=== PATIENT | male | born 1960 | race Caucasian/White ===

== ENCOUNTER 2017-08-14 06:06 | Day surgery (SDC) | payer BC, MEDICARE ==
[~2017-08-14 06:06] MED LIST: ALBU2.5V14 NEB; ASPI325T8 PO; BREO ELLIPTA 11 EACH IH; BUME1TAB PO; CHOL10002 PO; CLON1TAB3 PO; FURO-69 PO; HYDR50TA6 PO; IPRA0.2S5 IH; LISI-338 PO; LISI10TA2 PO; METO25TA4 PO; MONT10TA9 PO; OMEP20CA9 PO; PANT40TA5 PO; PROAIR HFA8.5 GM INH; ROFL500T7 PO; TAMS0.4C2 PO; THEO400T2 PO; TOPI50TA8 PO
[2017-08-14] MEDS ORDERED: CEPH500T PO (06:53)
[2017-08-14] MEDS ORDERED: LIDOCAINE 2% PF Vial for OR 5 ML VIAL. ONE (06:57)
[2017-08-14] MEDS ORDERED: PROPOFOL 20 ML IV ONE ×2 (06:57→07:57)
[2017-08-14] MEDS ORDERED: fentaNYL PF VIAL 100 MCG/2 ML VIAL ONE ×2 (06:57→08:42)
[2017-08-14] MEDS ORDERED: MORPHINE SULFATE 2 MG/ML DISP.SYRIN. IV PRN (07:00)
[2017-08-14] MEDS ORDERED: HYDROmorphone 2 MG/ML VIAL IV PRN (07:00)
[2017-08-14] MEDS ORDERED: LIDOCAINE 1% PF 2 ML VIAL. ID PRN (07:00)
[2017-08-14] MEDS ORDERED: ONDANSETRON PF 4 MG/2 ML VIAL. IV PRN (07:00)
[2017-08-14] MEDS ORDERED: fentaNYL PF VIAL 100 MCG/2 ML VIAL IV PRN (07:00)
[2017-08-14] MEDS ORDERED: IV RINGERS,LACTATED 1000ML 1,000 ML IV SCH (07:00)
[2017-08-14] MEDS ORDERED: PROCHLORPERAZINE 10 MG/2 ML VIAL. IV PRN (07:00)
[2017-08-14] MEDS ORDERED: IPRATRPIUM/ALBUTEROL 0.5/2.5MG 3 ML NEBU. ONE (07:13)
[2017-08-14] MEDS ORDERED: IPRATRPIUM/ALBUTEROL 0.5/2.5MG 3 ML NEBU. NEB ONE (07:15)
[2017-08-14] MEDS ORDERED: ONDANSETRON PF 4 MG/2 ML VIAL. ONE (07:45)
[2017-08-14] MEDS ORDERED: SEVOFLURANE 16 TO 30 MINUTES. IH ONE (07:45)
[2017-08-14] MEDS ORDERED: DEXAMETHASONE SOD PHOS 20 MG/5 ML VIAL. ONE (07:45)
--- NOTE | 2017-08-14 08:30 | DISCH ---
DISCHARGE INSTRUCTIONS Condition on Discharge Condition on Discharge: Stable Activity After Discharge Activity Instructions for Disc: Other, see below Other activity instructions: gentle motion right elbow, no lifting pushing pulling Bathing Instructions: Shower-keep dressing dry Diet after Discharge Diet after Discharge: Regular Wound Incision Care Wound/Incision Care: Ice to area for comfort, Change dressing Other wound/incision instructi: May remove dressing in 3 days and replace with gauze and compressive wrap Contacting the DR. after DC Call your doctor for: Concerns you may have Follow-Up Follow up with: Kirit 10 days KIKE BARNHART MD Aug 14, 2017 08:30
[2017-08-14] MEDS ORDERED: HYDR-965 PO (08:34)
[2017-08-14] MEDS: fentaNYL PF VIAL 100 MCG/2 ML VIAL IV PRN ×2 (08:44→08:57)
[2017-08-14] MEDS ORDERED: HYDROcodone/APAP 7.5/325MG 1 TAB TABLET PO ONE (09:00)
--- NOTE | 2017-08-14 09:12 | PDOC4 ---
Operative Note Operative Note The surgery: 08/14/2017 Preoperative diagnosis: Infected right olecranon bursa Postoperative diagnosis: Same Procedure: Irrigation debridement of infected right olecranon bursa Surgeon: Kirit Anesthesia: Gen. endotracheal Estimated blood loss 50 mL Intraoperative cultures sent Complications: None Operative indications: Patient is a 57-year-old male with a several week history of swollen red painful right elbow. It was aspirated his primary care physician but recurred he has been on multiple courses of antibiotics with no resolution and continues to be red and painful. No culture results are reported available. I had gone over with him the possibility of operative debridement and cultures at that time although cultures may be inaccurate due to his previous course of antibiotics. Nevertheless he is very symptomatic and not getting better with his previous treatment. Consent was obtained and he agrees to proceed with operative evaluation and treatment and is aware of the risks of ongoing infection potential additional procedures risks of surgery including medical or other anesthetic complications. Operative text: Patient was identified procedure verified patient placed in the supine position on the operating table. After adequate amounts of general endotracheal anesthesia were administered the right upper extremity was prepped and draped in standard sterile fashion was then tourniquet on the upper arm. After timeout was performed patient procedure identified and verified, incisions were made longitudinally just proximal and distal to the olecranon bursa area for access without compromising the skin directly over the olecranon. Anaerobic and aerobic cultures were obtained extensive sharp debridement was carried out with rongeurs and curettes removing the olecranon tissue and causing significant bleeding in the olecranon area. Thorough irrigation carried out with normal saline solution and pulse lavage additional sharp debridement was carried out with the rongeurs and with the offending tissue removed additional thorough irrigation carried out and closure accomplished with nylon suture in a vertical mattress fashion sterile compressive dressings were placed followed by an Ector wrap from the hand on up above the elbow to the upper arm fingers were noted be warm and pink throughout the procedure no tourniquet was used he was returned recovery room in stable condition having tolerated the procedure well KIKE BARNHART MD Aug 14, 2017 09:12
[2017-08-14 09:30] VITALS: BP 108/97
== END 2017-08-14 09:59 | disposition home or self-care (01) ==
LOC: SURG 06:06
PROVIDERS: ATTEND Orthopaedic Surgery
DX: M71.121 Other infective bursitis, right elbow (principal); I10 Essential (primary) hypertension; J44.9 Chronic obstructive pulmonary disease, unspecified; K21.9 Gastro-esophageal reflux disease without esophagitis; M19.91 Primary osteoarthritis, unspecified site; F41.9 Anxiety disorder, unspecified; F32.9 Major depressive disorder, single episode, unspecified; Z86.69 Personal history of other diseases of the nervous system and sense organs; Z87.39 Personal history of other diseases of the musculoskeletal system and connective tissue; Z72.89 Other problems related to lifestyle; Z82.49 Family history of ischemic heart disease and other diseases of the circulatory system; Z83.3 Family history of diabetes mellitus
CPT/HCPCS: 24105; 87071; 87075; 87205; 94640; J1100; J2405; J2704; J3010; J7620; J2001

== ENCOUNTER 2017-10-16 13:05 | Emergency (ER) | payer MEDICARE ==
[~2017-10-16] VITALS: Ht 182.9 cm; Wt 130.6 kg
[~2017-10-16 13:05] MED LIST changes: +CEPH500T PO; +HYDR-965 PO
[2017-10-16 14:20] LABS: BASO % 1 % (0-3); EOS % 3 % (0-3); HEMATOCRIT 46.1 % (39.0-53.0); HEMOGLOBIN 15.5 g/dL (13.0-17.5); LYMPH # 0.9 x10^3/uL (1.0-4.8); LYMPH % 11 % (24-48); MEAN CORPUSCULAR HEMOGLOBIN 33 pg (25-35); MEAN CORPUSCULAR HGB CONC 34 g/dL (31-37); MEAN CORPUSCULAR VOLUME 98 fL (79-100); MONO % 14 % (0-9); NEUT % 72 % (31-73); PLATELET COUNT 304 x10^3/uL (140-400); RED BLOOD COUNT 4.72 x10^6/uL (4.30-5.70); RED CELL DISTRIBUTION WIDTH 14.2 % (11.5-14.5)
[2017-10-16 14:30] LABS: INR 1.1 (0.8-1.1); PROTHROMBIN TIME PATIENT 13.2 SEC (11.7-14.0)
--- NOTE | 2017-10-16 14:41 | EKG ---
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
[2017-10-16 14:43] LABS: CALCIUM 9.2 mg/dL (8.5-10.1); CREATININE 0.8 mg/dL (0.7-1.3); GFR 98.9; POTASSIUM 3.8 mmol/L (3.5-5.1)
--- NOTE | 2017-10-16 14:44 | RAD ---
EXAM: Chest one view. HISTORY: Edema. COMPARISON: 07/09/2016. FINDINGS: A frontal view of the chest is obtained. Hyperinflation is consistent with chronic obstructive pulmonary disease. There is mild scarring or atelectasis in the bases. There are no confluent infiltrates. There is no pneumothorax or pleural effusion. The heart is not enlarged. IMPRESSION: 1. Chronic obstructive pulmonary disease. No confluent infiltrates.
[2017-10-16 14:47] LABS: ALBUMIN 4.1 g/dL (3.4-5.0); ALBUMIN/GLOBULIN RATIO 1.3 (1.0-1.7); TOTAL BILIRUBIN 1.3 mg/dL (0.2-1.0); TOTAL PROTEIN 7.2 g/dL (6.4-8.2)
--- NOTE | 2017-10-16 15:21 | RAD ---
Left lower extremity deep venous ultrasound. 10/16/2017 Indication: [Left lower extremity edema Comparison study: [None] Discussion: Sonographic evaluation of the deep veins of the left lower extremity was performed. This includes grayscale imaging and color duplex imaging with spectral analysis. No evidence of deep venous thrombosis is seen. Interrogated veins are compressible and demonstrate augmentable blood flow and color Doppler imaging. Impression: No evidence of deep venous thrombosis involving the left lower extremity.
--- NOTE | 2017-10-16 15:25 | RAD ---
Left lower extremity arterial duplex ultrasound 10/16/2017 Indication: Swelling, diminished pulses Comparison study: None Discussion: Ultrasound evaluation of left lower extremity arteries was performed. Static images are submitted to PACS. Evaluation includes color Doppler imaging spectral analysis. Findings: Normal triphasic waveforms are seen throughout the major arteries of the left lower extremity. No focal area of increased velocity suggestive of hemodynamically significant stenosis is seen. No high-grade visual narrowing is identified and color Doppler imaging. Impression: Normal sonographic appearance of major arteries of the left lower extremity
[2017-10-16 15:26] LABS: BILIRUBIN,URINE NEGATIVE (NEG); GLUCOSE,URINE NEGATIVE (NEG); NITRITE,URINE NEGATIVE (NEG); PROTEIN,URINE NEGATIVE (NEG-TRACE)
[2017-10-16 15:47] LABS: BACTERIA,URINE 0 /HPF (0-FEW); RBC,URINE 0 /HPF (0-2); WBC,URINE OCC /HPF (0-4)
[2017-10-16] MEDS ORDERED: FUROSEMIDE 40 MG/4 ML VIAL. IVP ONE (16:00)
[2017-10-16] MEDS ORDERED: CEPHALEXIN 250 MG CAPSULE. PO STA (16:06)
[2017-10-16] MEDS ORDERED: ceFAZolin 1GM IVPB FOR OMNI 1 GM/50 ML BAG IV ONE (16:15)
[2017-10-16] MEDS ORDERED: CEPH-264 PO (16:20)
--- NOTE | 2017-10-16 16:20 | PHYS DOC ---
Past Medical History Past Medical History: Asthma, CHF, COPD Additional Past Medical Histor: emphysema, lower ext edema,CPAP at night, oxygen at night Past Surgical History: Cancer Surgery Additional Past Surgical Histo: R elbow (bursitis), hernia, colectomy, mouth Cancer- laser surgery Alcohol Use: Heavy Additional Information: 12 pk day Drug Use: None Adult General Chief Complaint Chief Complaint: LOWER EXTREMITY EDEMA HPI HPI Patient is a 57 year old gentleman with history significant for CHF, COPD, chronic lower extremity edema, presents here today secondary to increased lower extremity edema redness and swelling to both lower extremities left greater than right. Patient went to the urgent care center for evaluation secondary to his lower extremity edema and asymmetry patient was transferred here for further evaluation for possible peripheral vascular/peripheral arterial disease. Patient denies any other symptomology at this time. Patient denies any fevers shakes chills nausea vomiting diarrhea chest pain shortness of breath headache visual changes. Patient reports that his legs have been swollen left greater than right with some warmth and tenderness to his left pretibial region. Patient has no known drug allergies. Patient has a history of COPD hypertension CHF. Patient reports she no longer smokes drinks or does any drugs. \ Patient reports that he is on a diuretic and he has been compliant with his diuretic. Patient reports a diuretic generally helps his lower extremity edema but he thinks over the last several days he has not been urinating as much as been retaining more fluid. Patient reports in the past that he's had increased lower extremity edema he's had to stop his salt intake with improvement in his edema. Patient reports he is done without any still having swelling to his lower extremities. Patient denies any chest pain orthopnea PND dyspnea on exertion. Patient denies any intent. Review of systems: Constitutional: Denies fever or chills Eyes: Denies change in visual acuity, redness, or eye pain HENT: Denies nasal congestion or sore throat Respiratory: Denies cough or shortness of breath All other systems were reviewed and found to be within normal limits, except as documented in this note. Physical exam: Constitutional: Well developed, well nourished, no acute distress, non-toxic appearance. HENT: Normocephalic, atraumatic, bilateral external ears normal, nose normal. Eyes: PERRLA, EOMI, conjunctiva normal, no discharge. Neck: Normal range of motion, no tenderness, supple, no stridor. Cardiovascular: Heart rate regular rhythm, Lungs & Thorax: Bilateral breath sounds clear to auscultation Abdomen: No abdominal distention. Skin: Warm, dry, no erythema, no rash. Back: Normal spinal curvature Extremities: Patient with bilateral lower extremity edema left greater than right. Pulses were difficult to assess secondary to the edema. Patient has good capillary refill. Patient's warm to touch lower extremities. Patient's pretibial area is tender to palpation with positive swelling. Patient has no calf tenderness or Homans sign. Neurologic: Alert and oriented X 3, normal motor function, normal sensory function, no focal deficits noted. Psychologic: Affect normal, judgement normal, mood normal. Ultrasound of left lower extremities reveals no evidence of DVT. Ultrasound of left lower extremity reveals normal arterial blood flow to the left lower extremity. Assessment and plan: 1. Bilateral lower extremity edema with left greater than right. No evidence of DVT. Left lower extremity reveals no evidence of arterial insufficiency. Patient did have significant tenderness to palpation his pretibial region that may or may not be consistent with an early cellulitis. I discussed this with the patient reports that he's had chronic cellulitis in the past that area and he would feel more comfortable being started on antibiotics. Patient reports that he's been on Keflex in the past with significant improvement. Given the lack of close follow-up over the weekend I feel that it be prudent to initiate antibiotic therapy on this patient given his history. Patient appears to condition well and utilizing shared decision making we have opted to initiate Keflex 10 days until he is able to follow-up with his primary care physician for definitive management. Patient's lower extremity edema is most likely consistent with peripheral edema secondary to CHF. I have given the patient extra dose of Lasix 80 IV in the ED and have encouraged him to restrict his salt and fluid intake until he is able see his primary care physician. Patient' s BNP is approximately 500 which is slightly higher than his baseline. Patient is clinically hemodynamically stable at this time for discharged home. There is no further indication for inpatient or further ER evaluation. Family appears very comfortable with plan as outlined. Current Medications Current Medications Current Medications Medications (Trade) Dose Ordered Sig/Sheryl Start Time Stop Time Status Last Admin Dose Admin Cephalexin HCl (Keflex) 500 mg 1X STAT 10/16/17 16:06 10/16/17 16:08 DC Furosemide (Lasix) 80 mg 1X ONCE 10/16/17 16:00 10/16/17 16:01 DC Allergies Allergies Allergies Coded Allergies Type Severity Reaction Last Updated Verified No Known Drug Allergies 08/14/17 No Current Patient Data Vital Signs Vital Signs Date Time Temp Pulse Resp B/P (MAP) Pulse Ox O2 Delivery O2 Flow Rate FiO2 10/16/17 13:33 97.9 98 18 155/96 (115) 94 Room Air 97.9 Lab Values Laboratory Tests Test 10/16/17 13:59 10/16/17 14:40 10/16/17 15:15 White Blood Count 8.0 x10^3/uL (4.0-11.0) Red Blood Count 4.72 x10^6/uL (4.30-5.70) Hemoglobin 15.5 g/dL (13.0-17.5) Hematocrit 46.1 % (39.0-53.0) Mean Corpuscular Volume 98 fL (79-100) Mean Corpuscular Hemoglobin 33 pg (25-35) Mean Corpuscular Hemoglobin Concent 34 g/dL (31-37) Red Cell Distribution Width 14.2 % (11.5-14.5) Platelet Count 304 x10^3/uL (140-400) Neutrophils (%) (Auto) 72 % (31-73) Lymphocytes (%) (Auto) 11 % (24-48) L Monocytes (%) (Auto) 14 % (0-9) H Eosinophils (%) (Auto) 3 % (0-3) Basophils (%) (Auto) 1 % (0-3) Neutrophils # (Auto) 5.7 x10^3uL (1.8-7.7) Lymphocytes # (Auto) 0.9 x10^3/uL (1.0-4.8) L Monocytes # (Auto) 1.1 x10^3/uL (0.0-1.1) Eosinophils # (Auto) 0.2 x10^3/uL (0.0-0.7) Basophils # (Auto) 0.0 x10^3/uL (0.0-0.2) Prothrombin Time 13.2 SEC (11.7-14.0) Prothrombin Time INR 1.1 (0.8-1.1) Sodium Level 135 mmol/L (136-145) L Potassium Level 3.8 mmol/L (3.5-5.1) Chloride Level 97 mmol/L (98-107) L Carbon Dioxide Level 30 mmol/L (21-32) Anion Gap 8 (6-14) Blood Urea Nitrogen 13 mg/dL (8-26) Creatinine 0.8 mg/dL (0.7-1.3) Estimated GFR (Cockcroft-Gault) 98.9 BUN/Creatinine Ratio 16 (6-20) Glucose Level 87 mg/dL (70-99) Calcium Level 9.2 mg/dL (8.5-10.1) Total Bilirubin 1.3 mg/dL (0.2-1.0) H Aspartate Amino Transferase (AST) 24 U/L (15-37) Alanine Aminotransferase (ALT) 33 U/L (16-63) Alkaline Phosphatase 60 U/L (46-116) Troponin I Quantitative < 0.017 ng/mL (0.000-0.055) SN-Hqc-I-Type Natriuretic Peptide 554 pg/mL (0-124) H Total Protein 7.2 g/dL (6.4-8.2) Albumin 4.1 g/dL (3.4-5.0) Albumin/Globulin Ratio 1.3 (1.0-1.7) Lactic Acid Level 0.4 mmol/L (0.4-2.0) Urine Color Yellow Urine Clarity Clear Urine pH 7.0 Urine Specific [place] 1.010 Urine Protein Negative mg/dL (NEG-TRACE) Urine Glucose (UA) Negative mg/dL (NEG) Urine Ketones (Stick) Trace mg/dL (NEG) Urine Blood Negative (NEG) Urine Nitrite Negative (NEG) Urine Bilirubin Negative (NEG) Urine Urobilinogen Dipstick 1.0 mg/dL (0.2 mg/dL) Urine Leukocyte Esterase Negative (NEG) Urine RBC 0 /HPF (0-2) Urine WBC Occ /HPF (0-4) Urine Squamous Epithelial Cells None /LPF Urine Bacteria 0 /HPF (0-FEW) Laboratory Tests 10/16/17 13:59 Laboratory Tests 10/16/17 13:59 EKG EKG [] Radiology/Procedures Radiology/Procedures [] Course & Med Decision Making Course & Med Decision Making Pertinent Labs and Imaging studies reviewed. (See chart for details) [] Dragon Disclaimer Dragon Disclaimer This electronic medical record was generated, in whole or in part, using a voice recognition dictation system. Departure Departure Impression: Primary Impression: Bilateral lower extremity edema Additional Impressions: CHF (congestive heart failure) Cellulitis Disposition: HOME, SELF-CARE Condition: IMPROVED Referrals: Roseann JAY MD (PCP) Patient Instructions: Cellulitis, Heart Failure, Peripheral Edema Additional Instructions: Please call Dr. Pichardo on Thursday for follow-up appointment and reevaluation for your lower show edema, cellulitis, management of your diuretics. Scripts Cephalexin (KEFLEX) 500 Mg Capsule 500 MG PO QID for 10 Days, CAP Prov: BRENDON CASE MD 10/16/17 Problem Qualifiers BRENDON CASE MD Oct 16, 2017 16:20
[2017-10-16 17:00] VITALS: BP 140/94
== END 2017-10-16 17:07 | disposition home or self-care (01) ==
LOC: ER 13:05
DX: L03.116 Cellulitis of left lower limb (principal); L03.115 Cellulitis of right lower limb; R60.0 Localized edema; I11.0 Hypertensive heart disease with heart failure; I50.9 Heart failure, unspecified; J44.9 Chronic obstructive pulmonary disease, unspecified; F17.200 Nicotine dependence, unspecified, uncomplicated; F10.20 Alcohol dependence, uncomplicated
CPT/HCPCS: 36415; 71010; 80053; 81001; 83605; 83880; 84484; 85025; 85610; 93005; 93923; 93971; 96365; 96375; 99285; J0690; J1940

== ENCOUNTER → 2018-04-01 | Outpatient (CLI) | payer MEDICARE | END | disposition home or self-care (01) | LOC: RAD 11:33 | DX: J44.9 Chronic obstructive pulmonary disease, unspecified (principal); I11.0 Hypertensive heart disease with heart failure; I50.9 Heart failure, unspecified; K21.9 Gastro-esophageal reflux disease without esophagitis; Z85.038 Personal history of other malignant neoplasm of large intestine | CPT/HCPCS: 71046 ==

== ENCOUNTER → 2018-10-22 | Outpatient (CLI) | payer MEDICARE ==
[~2018-10-22] MED LIST changes: +CEPH-264 PO; +CLON1TAB11 PO; -CLON1TAB3 PO; +HYDR-3165 PO; -HYDR-965 PO
--- NOTE | 2018-10-22 11:02 | KCIC ---
EXAM: Lumbar spine MRI without contrast. HISTORY: Compression fracture. TECHNIQUE: Multiplanar, multisequence magnetic resonance imaging of the lumbar spine was performed without contrast. COMPARISON: Radiographs dated 09/03/2018. FINDINGS: There is a moderate acute compression fracture of T12 with approximately one third decreased in anterior vertebral body height. There is edema within the T11 spinous process which may be due to a stress reaction or contusion. No additional vertebral body fracture is seen. There is mild lumbar levoscoliosis. There is mild retrolisthesis of L4 on L5. There is degenerative endplate remodeling and osteophytosis at all levels, with relative sparing of L5-S1. There are multiple endplate Schmorl's nodes. No suspicious osseous lesion is seen. The conus terminates at T12-L1. There is epidural lipomatosis, primarily at L3-L4. At T12-L1, there is a posterior central disc protrusion. 2 mm retropulsion of the posterior inferior cortex of T12. There is minimal central canal stenosis. At L1-L2, there is a disc bulge and endplate remodeling. There is minimal facet arthropathy. There is no stenosis. At L2-L3, there is a disc bulge and endplate remodeling. There is minimal facet arthropathy. There is epidural lipomatosis. There is mild central canal stenosis. At L3-L4, there is a right foraminal to extra foraminal disc protrusion and osteophyte complex imposed on a disc bulge and endplate osteophytosis. There is moderate bilateral facet arthropathy. There is epidural lipomatosis. There is [id number] right and mild left foraminal stenosis with abutment of the exiting right L3 nerve root. There is moderate central canal stenosis. At L4-L5, there is a left foraminal to extra foraminal disc protrusion with slight superior extrusion and osteophyte complex superimposed on a left lateral predominant disc bulge and endplate osteophytosis. There is mild bilateral facet arthropathy. There is moderate left foraminal stenosis with abutment of the exiting left L4 nerve root. At L5-S1, there is no stenosis. The left L5 transverse process is partially sacralized and articulates with the underlying sacrum, a normal variant. IMPRESSION: 1. Moderate acute compression fracture of T12. There is minimal retropulsion of the cortex at this level. 2. Multilevel degenerative change throughout the lumbar spine, described in detail above. This contributes to minimal central canal stenosis at T12-L1, mild central canal stenosis at L2-L3, mild to moderate right and mild left foraminal stenosis with abutment of the exiting right L3 nerve root and moderate central canal stenosis at L3-L4, and moderate left foraminal stenosis with abutment of the exiting left L4 nerve root at L4-L5. 3. Lumbar scoliosis. 4. Electronically signed by: Soraya Grubbs MD (10/22/2018 10:58 AM) [email or web address]
== END | disposition home or self-care (01) ==
LOC: KCIC MRI 09:48
PROVIDERS: ATTEND Family Medicine
DX: M48.54XD Collapsed vertebra, not elsewhere classified, thoracic region, subsequent encounter for fracture with routine healing (principal); M48.061 Spinal stenosis, lumbar region without neurogenic claudication; M41.86 Other forms of scoliosis, lumbar region; M51.26 Other intervertebral disc displacement, lumbar region; M25.78 Osteophyte, vertebrae; M12.88 Other specific arthropathies, not elsewhere classified, other specified site
CPT/HCPCS: 72148

== ENCOUNTER → 2018-11-03 | Outpatient (CLI) | payer MEDICARE ==
[~2018-11-03] MED LIST changes: +AZEL6DRO2 EACHEYE; +BREO ELLIPTA 21 EACH IH; +COLC0.6T34 PO; +IOHEXOL 180 MG/ML 10 ML VIAL. ONE; +METH-37 PO; +METR-84 PO; +SERT100T PO; +VENTOLIN HFA18 GM INH; +methylPREDNISolone ACETATE 40 MG/ML VIAL. ONE; +methylPREDNISolone ACETATE 80 MG/ML VIAL. ONE
--- NOTE | 2018-11-03 17:39 | PAIN ---
DATE OF SERVICE: 11/03/2018 INITIAL CONSULTATION FOR PAIN CLINIC CHIEF COMPLAINT: Low back and left lower extremity pain. HISTORY OF PRESENT ILLNESS: This is a 58-year-old male who presents with history of pain in the low back and left lower extremity, mostly in the lateral aspect of the thigh, anterior thigh on the left and posterior gluteus across the low back, into the posterior thigh and calf to some extent, mostly in the medial aspect of the left thigh and knee anteriorly. The patient reports it has been going on for about 2 years, but worse after 2 months as he fell on a wet floor about 2 months ago and seems to exacerbate the pain significantly. The patient did have x-rays of the lumbar spine and MRI showing acute compression fracture T12. Also, multilevel degenerative changes throughout the lumbar spine with right foraminal to extraforaminal disk protrusion at L3-L4 and a left foraminal to extraforaminal disk protrusion at L4-L5 with moderate left foraminal stenosis and abutment of the exiting left L4 nerve root. Mild to moderate right and mild left foraminal stenosis with abutment of the exiting right L3 nerve root. The patient reports it is worse with walking, standing, finds himself leaning forward or getting off his feet as much as he can. The pain is described as constant, sharp, stabbing, numbness and tingling, burning sensation as well in the low back and left leg. The patient reports it awakens him multiple times throughout the night, difficulty sleeping, does not affect his bowel or bladder control, but does affect his ability to walk. He is using a cane, which he has with him today in his right hand. The patient rated disability rate from 0-10, 10 being the worst, is a 10 with family and home responsibilities, recreation, social activity, occupation, sexual behavior, 7 with self-care, 7 with life support activities. The patient has had physical therapy in the past, also chiropractic treatment and exercises still doing and actually an epidural steroid injection about 2 years ago he reports at an outside facility, which was helpful. The patient has tried no other medications at this time. PAST MEDICAL HISTORY: Significant for shortness of breath, emphysema, asthma, hypertension with the oxygen use at night 2-3 liters reflux, arthritis, scoliosis. PREVIOUS SURGERY: Include colon resection and umbilical hernia repair and inguinal hernia repair and LASIK procedure. CURRENT MEDICATIONS: Include omeprazole, metoprolol, montelukast, lisinopril, Breo Ellipta inhaler, albuterol inhaler, Ventolin inhaler, sertraline, clonazepam, topiramate, metronidazole, methocarbamol, ProAir, colchicine, azelastine eyedrops, also tamsulosin, hydrochlorothiazide, Daliresp and Lasix. ALLERGIES: The patient has no known drug allergies. FAMILY HISTORY: Significant for no major medical problems or conditions he is aware of. SOCIAL HISTORY: The patient drinks about 12 beers on weekends, does not smoke, quit recently, but does chew tobacco still, not using any illegal, illicit or recreational drugs. Lives locally in [place], [place]. Reports he is currently retired and is with 5 children, living in the home. REVIEW OF SYSTEMS: The patient's review of systems is positive for those items mentioned in history of present illness. All systems were reviewed and otherwise negative. It is complete, full and well documented on the patient's chart. PHYSICAL EXAMINATION: VITAL SIGNS: Today, the patient's blood pressure 113/78, pulse 94, respirations 20, temperature is 98.0 degrees Fahrenheit, height 6 feet 0 inches, weight is 277 pounds. GENERAL: The patient is awake, alert, oriented, appropriate, very pleasant demeanor. HEENT: Shows normocephalic, atraumatic. Extraocular movements intact and symmetrical. Oral cavity: Mucous membranes moist and pink. Dentition is intact. NECK: Shows anterior throat supple without palpable lymphadenopathy noted. Swallow reflex symmetrical. CHEST: Shows normal with inspection. Breath sounds clear to auscultation bilaterally. HEART: Shows S1, S2 clear. No murmurs auscultated. ABDOMEN: Obese, soft, nontender, nondistended. No palpable organomegaly is noted. No rebound or guarding demonstrated. BACK: Shows spine grossly in the midline. Slight exaggeration of thoracic kyphosis, some minor flattening of lumbar lordotic curvature. Lumbar paraspinous muscle shows symmetrical on inspection. On palpation shows some moderate tenderness diffusely in the lumbar paraspinous muscle in the low lumbar distribution without radiation, without trigger points. The patient's spinous processes show some mild tenderness at the superior aspect of the lumbar distribution at approximately where the compression fracture T12 is but only mildly tender. No tenderness in the sacroiliac or the sacrum. EXTREMITIES: Lower extremities show deep tendon reflexes at 1+ in the patellar and tendo-calcaneus tendons. Motor exam is approximately a 4 on a scale of 5 on left and 5/5 on the right dorsiflexion, extension, quadriceps and hamstring flexion. Peripheral pulses are 1+ posterior tibial. No peripheral edema is noted. No clubbing or cyanosis. The patient's lower extremities are warm and dry to touch, equal in color and appearance. Straight leg raise noted to be positive on the left at 40 degrees, decreased with knee flexion, right side is negative. Gaenslen's and Godwin's maneuvers are negative bilaterally. The patient is able to stand, stand on his toes without significant difficulty or loss of balance, again using a cane in his right hand to ambulate, does have a slight limping gait favoring left lower extremity. SKIN: Shows warm and dry, good turgor. No edema. No sores, rashes or bruising. IMPRESSION: 1. This is a 58-year-old male with approximate 2-year history of increasing pain, especially after a fall 2 months ago with radiating pain and radicular pain in the left lower extremity. 2. MRI scan of lumbar spine as noted. 3. Obesity. 4. Arthritis. 5. Hypertension. 6. Shortness of breath. PLAN: Options were discussed with the patient including conservative medical management, physical therapy, interventional technique. He would like to pursue interventional techniques. We discussed a lumbar epidural steroid injection using description as well as anatomical models to describe the procedure. Risks were then discussed including, but not limited to bleeding, infection, possibility of epidural hematoma and subsequent neurological compromise, dural puncture headache, spinal cord and/or nerve damage, side effects of steroid medication and poor results regarding pain control. The patient understands and wished to proceed. The patient will return to clinic in approximately 2 weeks for followup, was counseled on return appointment, activity level and side effects to be aware of. DIAGNOSES: Lumbar radiculopathy, lumbar spinal stenosis, lumbar degenerative disk disease. PROCEDURE: Lumbar epidural steroid injection, translaminar approach at the L4-L5 level using C-arm fluoroscopic guidance under sterile prep and drape using local anesthetic. MEDICATION INJECTED: A total of 120 mg Depo-Medrol plus 10 mL of preservative-free normal saline and 2 mL of Isovue for contrast. CONDITION AT DISCHARGE: Stable. The patient tolerated procedure well, had no complications. JACK AYALA MD DR: ABHIJIT/philip JOB#: [id number] / [id number]
== END | disposition home or self-care (01) ==
LOC: PNCL 08:03
PROVIDERS: ATTEND Anesthesiology
DX: M51.16 Intervertebral disc disorders with radiculopathy, lumbar region (principal); M48.061 Spinal stenosis, lumbar region without neurogenic claudication; I10 Essential (primary) hypertension; M19.90 Unspecified osteoarthritis, unspecified site; E66.9 Obesity, unspecified; J43.9 Emphysema, unspecified; K21.9 Gastro-esophageal reflux disease without esophagitis; Z99.81 Dependence on supplemental oxygen; Z98.890 Other specified postprocedural states; M41.9 Scoliosis, unspecified; Z79.899 Other long term (current) drug therapy; Z72.89 Other problems related to lifestyle; Z87.891 Personal history of nicotine dependence
CPT/HCPCS: 62323; J1030; J1040; Q9965

== ENCOUNTER → 2018-11-12 | Outpatient (CLI) | payer MEDICARE ==
[~2018-11-12] MED LIST changes: +ALBU2.5V8 INH; -IOHEXOL 180 MG/ML 10 ML VIAL. ONE; -PROAIR HFA8.5 GM INH; -methylPREDNISolone ACETATE 40 MG/ML VIAL. ONE; -methylPREDNISolone ACETATE 80 MG/ML VIAL. ONE
--- NOTE | 2018-11-12 16:59 | KCIC ---
MRI Cervical Spine Without Contrast History: Cervical stenosis, neck pain and numbness, frequent falls, progressive symptoms Technique: Multiplanar, multi sequential noncontrast MR imaging was performed of the cervical spine. Comparison: None Findings: There is significant motion degradation even for repeated images. Cervical cord caliber is within normal limits without expansile signal change. Cervical vertebral body stature and AP alignment are maintained. There is no significant marrow edema. There is moderate to severe degenerative disc disease C6-7, minimally at C5-6, mild disc desiccation C3-4. C2-C3: Spinal canal and neural foramina are adequate. C3-C4: Spinal canal and neural foramina are adequate. C4-C5: There is negligible posterior protrusion. Spinal canal is adequate. There is left facet degenerative change, probable minimal narrowing of the left neural foramen. Right neural foramen is adequate. C5-C6: There is minimal disc osteophyte complex. Spinal canal is adequate. There is mild facet degenerative change change. Small cystic type focus of the right neural foramen may be due to small nerve root sleeve cyst. Right neural foramen is overall adequate. Left neural foramen is not significantly narrowed. C6-C7: There is minimal disc osteophyte complex. Spinal canal is adequate. Right neural foramen is adequate, possible minimal narrowing of the left neural foramen in part from facet degenerative change. C7-T1: Neural foramina and spinal canal are adequate. There is left facet degenerative change. Impression: 1. Exam is degraded by motion even for repeated images, no significant cervical spinal stenosis or significant neural foramina compromise. There is degenerative disc disease greatest at C6-7. Electronically signed by: Krishna Orourke MD (11/12/2018 4:56 PM) [facility]
== END | disposition home or self-care (01) ==
LOC: KCIC MRI 15:35
PROVIDERS: ATTEND Neurological Surgery
DX: M50.323 Other cervical disc degeneration at C6-C7 level (principal); M25.78 Osteophyte, vertebrae
CPT/HCPCS: 72141

== ENCOUNTER → 2018-11-24 | Outpatient (CLI) | payer MEDICARE ==
[~2018-11-24] MED LIST changes: +IOHEXOL 180 MG/ML 10 ML VIAL. ONE; +methylPREDNISolone ACETATE 40 MG/ML VIAL. ONE; +methylPREDNISolone ACETATE 80 MG/ML VIAL. ONE
--- NOTE | 2018-11-24 11:33 | PAIN ---
DATE OF SERVICE: 11/24/2018 PROGRESS NOTE FOR PAIN CLINIC DIAGNOSES: Lumbar radiculopathy with lumbar spinal stenosis and lumbar degenerative disk disease. HISTORY OF PRESENT ILLNESS: The patient is a 58-year-old male who returns for followup status post lumbar epidural steroid injection x 1. The patient reports about 75% improvement for the first week and about 50% improvement overall. The patient reports about pain still in the low back into the left lower extremity as it was previously, posterior gluteus, posterolateral thigh, lateral anterior thigh, medial thigh, medial lower leg; worse with walking, standing, changing positions; better with sitting or lying down. The patient reports initially the first week or so he is having better time walking, able to do household activities, traveling with greater ease and comfort. The patient reports now the pain is returning. It is burning, stabbing, sharp, shooting pain in the left leg, in the low back, becoming more constant, more noticeable with time. The patient reports it is a 10 on a scale of 10 at its worst, 10 on average and a 9 at its least and is a 9 today. The patient reports no new motor or sensory deficits and no new bowel or bladder incontinence or other complaints. PHYSICAL EXAMINATION: VITAL SIGNS: The patient's blood pressure 143/100, pulse 88, respirations are 18, temperature 97.8 degrees Fahrenheit, height 6 feet and weight is 279 pounds. GENERAL: The patient is awake, alert, oriented, appropriate and very pleasant demeanor. HEENT: Head shows normocephalic and atraumatic. Extraocular movements are intact and symmetrical. Oral cavity: Mucous membranes moist and pink. Dentition is intact. NECK: Shows anterior throat supple without palpable lymphadenopathy noted. Swallow reflex symmetrical. CHEST: Shows normal on inspection. Breath sounds clear to auscultation bilaterally. HEART: Shows S1 and S2 clear. No murmurs auscultated. ABDOMEN: Soft, nontender and nondistended. No palpable organomegaly is noted. No rebound or guarding demonstrated. BACK: Shows spine grossly in the midline. Normal appearing thoracic kyphosis and some minor flattening of lumbar lordotic curvature. Lumbar paraspinous muscle shows symmetrical on inspection, on palpation shows some moderate tenderness diffusely bilaterally but only diffusely without radiation. The patient shows no rebound. Good rotational motion of the lumbar spine laterally as well as extension and flexion without difficulty. EXTREMITIES: Lower extremities show deep tendon reflexes at 1+ in the patellar and tendo-calcaneus tendons. Motor exam is approximately 4 on a scale of 5 on the left and 5/5 on the right with dorsiflexion and extension. Peripheral pulses are 1+ posterior tibial. No peripheral edema is noted. Options were discussed with the patient. The patient's old chart was reviewed as well as his current medication regimen updated. Current review of systems updated today as well. We will proceed with a second in a series of lumbar epidural steroid injection today with fluoroscopic guidance. Risks were again discussed including, but not limited to bleeding, infection, possibility of epidural hematoma, subsequent neurologic compromise, dural puncture, headaches, spinal cord and/or nerve damage, side effects of steroid medication and poor results regarding pain control. The patient understands and wishes to proceed. The patient will return to the clinic in approximately 2 weeks for followup, was counseled as to return appointment, activity level and side effects to be aware of. DIAGNOSES: Lumbar radiculopathy with lumbar degenerative disk disease and lumbar spinal stenosis. PROCEDURE: Lumbar epidural steroid injection, translaminar approach at the L4-L5 level using C-arm fluoroscopic guidance under sterile prep and drape using local anesthetic. MEDICATION INJECTED: A total of 120 mg Depo-Medrol plus 10 mL of preservative-free normal saline and 2 mL of Isovue for contrast. CONDITION AT DISCHARGE: Stable. The patient tolerated the procedure well and had no complications. JACK AYALA MD DR: ABHIJIT/philip JOB#: [id number] / [id number]
== END | disposition home or self-care (01) ==
LOC: PNCL 07:50
PROVIDERS: ATTEND Anesthesiology
DX: M51.16 Intervertebral disc disorders with radiculopathy, lumbar region (principal); M48.061 Spinal stenosis, lumbar region without neurogenic claudication; Z79.899 Other long term (current) drug therapy
CPT/HCPCS: 62323; J1030; J1040; Q9965

== ENCOUNTER → 2018-11-29 | Outpatient (CLI) | payer MEDICARE ==
[~2018-11-29] MED LIST changes: +ALBU2.5V5 NEB; +HYDR12.575 PO; +IBUP200C9 PO; -IOHEXOL 180 MG/ML 10 ML VIAL. ONE; +TRAM50TA PO; -methylPREDNISolone ACETATE 40 MG/ML VIAL. ONE; -methylPREDNISolone ACETATE 80 MG/ML VIAL. ONE
[2018-11-29 16:17] LABS: BASO # 0.1 x10^3/uL (0.0-0.2); BASO % 1 % (0-3); EOS # 1.2 x10^3/uL (0.0-0.7); EOS % 13 % (0-3); HEMATOCRIT 43.3 % (39.0-53.0); LYMPH # 1.4 x10^3/uL (1.0-4.8); LYMPH % 16 % (24-48); MEAN CORPUSCULAR HEMOGLOBIN 33 pg (25-35); MEAN CORPUSCULAR HGB CONC 35 g/dL (31-37); MEAN CORPUSCULAR VOLUME 95 fL (79-100); MONO # 0.8 x10^3/uL (0.0-1.1); MONO % 9 % (0-9); NEUT # 5.5 x10^3uL (1.8-7.7); NEUT % 61 % (31-73); PLATELET COUNT 373 x10^3/uL (140-400); RED BLOOD COUNT 4.54 x10^6/uL (4.30-5.70); RED CELL DISTRIBUTION WIDTH 13.4 % (11.5-14.5); WHITE BLOOD COUNT 8.9 x10^3/uL (4.0-11.0)
--- NOTE | 2018-11-29 16:19 | EKG ---
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
[2018-11-29 16:38] LABS: ALBUMIN 3.8 g/dL (3.4-5.0); CALCIUM 9.9 mg/dL (8.5-10.1); CREATININE 0.9 mg/dL (0.7-1.3); GFR 86.1; TOTAL BILIRUBIN 0.6 mg/dL (0.2-1.0); TOTAL PROTEIN 7.8 g/dL (6.4-8.2)
[2018-11-29 17:27] LABS: % BANDS 2 % (0-9); % EOS 12 % (0-5); % LYMPHS 16 % (24-48); % MONOS 9 % (0-10); % SEGS 61 % (35-66); PLT ESTIMATE ADEQUATE (ADEQUATE)
== END | disposition home or self-care (01) ==
LOC: SURGPAT 13:45
PROVIDERS: ATTEND Neurological Surgery
DX: Z01.818 Encounter for other preprocedural examination (principal); M51.16 Intervertebral disc disorders with radiculopathy, lumbar region; I10 Essential (primary) hypertension; I45.19 Other right bundle-branch block; I48.91 Unspecified atrial fibrillation
CPT/HCPCS: 36415; 80053; 85007; 85025; 87641; 93005

== ENCOUNTER → 2018-12-06 | Outpatient (CLI) | payer MEDICARE ==
[~2018-12-06] MED LIST changes: +ALBU0.63 NEB; +AMPI3VIA IV; +APIX5TAB PO; +BISA-42 PO; -BUME1TAB PO; +BUME1TAB3 PO; +CEFE2VIA2 IV; +DEXT15DR5 EACHEYE; +DIGO125T PO; +DIGO250T PO; +DOCU-109 PO; +FAMO-63 PO; +FENT1PAT21 TD; +FLUT1BLS8 IH; +FURO40TA4 PO; +GABA600T7 PO; +GUAI-108 PO; +HYDR-2868 PO; +HYDR-3164 PO; +IBUP-1007 PO; +ISOS30TA4 PO; +LEVE500T6 PO; +LORA10TA3 PO; +METR-34 PO; -METR-84 PO; +MIRT15TA3 PO; +MONT10TA49 PO; -MONT10TA9 PO; +MVI,5VIA2 IV; +OMEP20CA10 PO; -OMEP20CA9 PO; +OMEP20TA8 PO; +OXYC15TA61 PO; +OXYC5CAP PO; +OXYC5TAB4 PO; -PANT40TA5 PO; +PANT40TA77 PO; +TAMS0.4C97 PO; +ZOLP10TA PO; +[UNRECOGNIZED DRUG - CODE] IJ; +[UNRECOGNIZED DRUG - CODE] IV
--- NOTE | 2018-12-06 14:58 | CARD ---
MR#: [id number] Date of Study: 12/06/2018 Ordering Physician: EREN MEHTA, Referring Physician: EREN MEHTA, Tech: Beatriz Lin APPROVED REPORT EXAM: Two-dimensional and M-mode echocardiogram with Doppler and color Doppler. Other Information Quality : AverageHR: 87bpm INDICATION Hypertension/HCVD Pre-Op RISK FACTORS Hypertension Smoking Quit smoking about 6 months ago 2D DIMENSIONS RVDd4.5 (2.9-3.5cm)Left Atrium(2D)4.8 (1.6-4.0cm) IVSd1.3 (0.7-1.1cm)Aortic Root(2D)3.1 (2.0-3.7cm) LVDd4.8 (3.9-5.9cm)LVOT Diameter2.6 (1.8-2.4cm) PWd1.3 (0.7-1.1cm)LVDs2.9 (2.5-4.0cm) FS (%) 40.1 %SV75.4 ml Aortic Valve AoV Peak [place].137.9cm/sAoV VTI25.3cm AO Peak GR.7.6mmHgLVOT Peak [place].88.8cm/s LVOT VTI 15.28cmAO Mean GR.4mmHg LUPE (VMAX)2.77rj6BTL (VTI)3.21cm2 Pulmonary Valve PV Peak Adumnmvn614.6cm/sPV Peak Grad.6mmHg Tricuspid Valve TR P. Fimrsqtr588qh/sRAP XMYDDIQY0fiFy TR Peak Gr.73spNbRUFS60hjKr Pulmonary Vein S1 Grnfiwzh14.5cm/sD2 Umiffzvn58.5cm/s LEFT VENTRICLE The left ventricle is normal size. There is mild concentric left ventricular hypertrophy. The left ve ntricular systolic function is normal and the ejection fraction is within normal range. The Ejection Fraction is 50-55%. There is normal LV segmental wall motion. RIGHT VENTRICLE The right ventricle is mildly dilated. There is normal right ventricular wall thickness. Systolic fun ction is mildly reduced. ATRIA The left atrium is mildly dilated. The right atrium is mildly dilated. The interatrial septum is inta ct with no evidence for an atrial septal defect or patent foramen ovale as noted on 2-D or Doppler im aging. AORTIC VALVE The aortic valve is not well visualized. Doppler and Color Flow revealed no significant aortic regurg itation. There is no significant aortic valvular stenosis. Calculated aortic valve area is 3.2 cm2 wi th maximum pressure gradient of 8 mmHg and mean pressure gradient of 4 mmHg. MITRAL VALVE The mitral valve is normal in structure and function. There is no evidence of mitral valve prolapse. There is no mitral valve stenosis. Doppler and Color-flow revealed trace mitral regurgitation. TRICUSPID VALVE The tricuspid valve is normal in structure and function. Doppler and Color Flow revealed trace to mil d tricuspid regurgitation. There is no tricuspid valve stenosis. PULMONIC VALVE The pulmonic valve is not well visualized. Doppler and Color Flow revealed no pulmonic valvular regur gitation. GREAT VESSELS The aortic root is normal in size. The IVC is normal in size and collapses >50% with inspiration. PERICARDIAL EFFUSION There is no evidence of significant pericardial effusion. Critical Notification Critical Value: No <Conclusion> The left ventricle is normal size. The left ventricular systolic function is normal and the ejection fraction is within normal range. The Ejection Fraction is 50-55%. There is mild concentric left ventricular hypertrophy. The right ventricle is mildly dilated. There is no significant aortic valvular stenosis. Calculated aortic valve area is 3.2 cm2 with maximum pressure gradient of 8 mmHg and mean pressure gr adient of 4 mmHg. Doppler and Color Flow revealed no significant aortic regurgitation. Doppler and Color-flow revealed trace mitral regurgitation. Doppler and Color Flow revealed trace to mild tricuspid regurgitation. Signed by : Waldo Kirk MD Electronically Approved : 12/06/2018 14:55:55
--- NOTE | 2018-12-07 08:20 | CARD ---
MR#: [id number] Date of Study: 12/06/2018 Ordering Physician: EREN MEHTA, Referring Physician: EREN MEHTA, Tech: Beatriz Lin APPROVED REPORT EXAM: Two-dimensional and M-mode echocardiogram with Doppler and color Doppler. Other Information Quality : AverageHR: 87bpm INDICATION Hypertension/HCVD Pre-Op RISK FACTORS Hypertension Smoking Quit smoking about 6 months ago 2D DIMENSIONS RVDd4.5 (2.9-3.5cm)Left Atrium(2D)4.8 (1.6-4.0cm) IVSd1.3 (0.7-1.1cm)Aortic Root(2D)3.1 (2.0-3.7cm) LVDd4.8 (3.9-5.9cm)LVOT Diameter2.6 (1.8-2.4cm) PWd1.3 (0.7-1.1cm)LVDs2.9 (2.5-4.0cm) FS (%) 40.1 %SV75.4 ml Aortic Valve AoV Peak [place].137.9cm/sAoV VTI25.3cm AO Peak GR.7.6mmHgLVOT Peak [place].88.8cm/s LVOT VTI 15.28cmAO Mean GR.4mmHg LUPE (VMAX)2.93no4XMP (VTI)3.21cm2 Pulmonary Valve PV Peak Kepavkih281.6cm/sPV Peak Grad.6mmHg Tricuspid Valve TR P. Djjetvpb762mj/sRAP KIWDRHWH3vdGh TR Peak Gr.88wfIqKRBJ50cnKx Pulmonary Vein S1 Vtynwldh90.5cm/sD2 Exrkbwvy48.5cm/s LEFT VENTRICLE The left ventricle is normal size. There is mild concentric left ventricular hypertrophy. The left ve ntricular systolic function is normal and the ejection fraction is within normal range. The Ejection Fraction is 50-55%. There is normal LV segmental wall motion. RIGHT VENTRICLE The right ventricle is mildly dilated. There is normal right ventricular wall thickness. Systolic fun ction is mildly reduced. ATRIA The left atrium is mildly dilated. The right atrium is mildly dilated. The interatrial septum is inta ct with no evidence for an atrial septal defect or patent foramen ovale as noted on 2-D or Doppler im aging. AORTIC VALVE The aortic valve is not well visualized. Doppler and Color Flow revealed no significant aortic regurg itation. There is no significant aortic valvular stenosis. Calculated aortic valve area is 3.2 cm2 wi th maximum pressure gradient of 8 mmHg and mean pressure gradient of 4 mmHg. MITRAL VALVE The mitral valve is normal in structure and function. There is no evidence of mitral valve prolapse. There is no mitral valve stenosis. Doppler and Color-flow revealed trace mitral regurgitation. TRICUSPID VALVE The tricuspid valve is normal in structure and function. Doppler and Color Flow revealed trace to mil d tricuspid regurgitation. There is no tricuspid valve stenosis. PULMONIC VALVE The pulmonic valve is not well visualized. Doppler and Color Flow revealed no pulmonic valvular regur gitation. GREAT VESSELS The aortic root is normal in size. The IVC is normal in size and collapses >50% with inspiration. PERICARDIAL EFFUSION There is no evidence of significant pericardial effusion. Critical Notification Critical Value: No <Conclusion> The left ventricle is normal size. The left ventricular systolic function is normal and the ejection fraction is within normal range. The Ejection Fraction is 50-55%. There is mild concentric left ventricular hypertrophy. The right ventricle is mildly dilated. There is no significant aortic valvular stenosis. Calculated aortic valve area is 3.2 cm2 with maximum pressure gradient of 8 mmHg and mean pressure gr adient of 4 mmHg. Doppler and Color Flow revealed no significant aortic regurgitation. Doppler and Color-flow revealed trace mitral regurgitation. Doppler and Color Flow revealed trace to mild tricuspid regurgitation. Signed by : Waldo Kirk MD Electronically Approved : 12/06/2018 14:55:55
== END | disposition home or self-care (01) ==
LOC: ECHO 13:13
PROVIDERS: ATTEND Nurse Practitioner
DX: I10 Essential (primary) hypertension (principal); Z87.891 Personal history of nicotine dependence
CPT/HCPCS: 93306; C8929

== ENCOUNTER → 2018-12-06 | Outpatient (CLI) | payer MEDICARE ==
--- NOTE | 2018-12-06 08:41 | KCIC ---
PA and lateral chest radiographs 12/06/2018 CLINICAL HISTORY: COPD. Shortness of breath. Preoperative evaluation. Two PA and a lateral digital radiographs of the chest were obtained. Comparison study is dated 09/14/2018. The cardiac silhouette is borderline enlarged. The thoracic aorta is mildly tortuous. Atherosclerotic calcification of the thoracic aorta is seen. Areas of scarring are seen involving both lungs, unchanged. No acute pulmonary infiltrate is seen. No pleural effusion or pneumothorax is noted. Bilateral apical pleural thickening is seen, right greater than left, unchanged. Degenerative changes are seen involving the thoracic spine. IMPRESSION: No acute abnormality is seen. Electronically signed by: Nba Dye MD (12/06/2018 8:36 AM) [facility]-KCIC1
== END | disposition home or self-care (01) ==
LOC: KCIC 08:03
PROVIDERS: ATTEND Internal Medicine Pulmonary Disease
DX: Z01.818 Encounter for other preprocedural examination (principal); R06.02 Shortness of breath; J44.9 Chronic obstructive pulmonary disease, unspecified; M47.814 Spondylosis without myelopathy or radiculopathy, thoracic region; I70.0 Atherosclerosis of aorta; F17.210 Nicotine dependence, cigarettes, uncomplicated
CPT/HCPCS: 71046

== ENCOUNTER → 2018-12-08 | Outpatient (CLI) | payer MEDICARE ==
[~2018-12-08] MED LIST changes: -ALBU0.63 NEB; -AMPI3VIA IV; -APIX5TAB PO; -BISA-42 PO; +BUME1TAB PO; -BUME1TAB3 PO; -CEFE2VIA2 IV; -DEXT15DR5 EACHEYE; -DIGO125T PO; -DIGO250T PO; -FAMO-63 PO; -FENT1PAT21 TD; -FLUT1BLS8 IH; -FURO40TA4 PO; -GABA600T7 PO; -GUAI-108 PO; -HYDR-2868 PO; -IBUP-1007 PO; -ISOS30TA4 PO; -LEVE500T6 PO; -LORA10TA3 PO; -METR-34 PO; +METR-84 PO; -MIRT15TA3 PO; -MONT10TA49 PO; +MONT10TA9 PO; -MVI,5VIA2 IV; -OMEP20CA10 PO; +OMEP20CA9 PO; -OMEP20TA8 PO; -OXYC15TA61 PO; -OXYC5CAP PO; -OXYC5TAB4 PO; +PANT40TA5 PO; -PANT40TA77 PO; -TAMS0.4C97 PO; -ZOLP10TA PO; -[UNRECOGNIZED DRUG - CODE] IJ; -[UNRECOGNIZED DRUG - CODE] IV
--- NOTE | 2018-12-08 09:13 | PAIN ---
DATE OF SERVICE: 12/08/2018 DIAGNOSES: 1. Lumbar radiculopathy with lumbar spinal stenosis. 2. Lumbar degenerative disk disease. HISTORY OF PRESENT ILLNESS: The patient is a 58-year-old male who returns for followup status post lumbar epidural steroid injection x 2. The patient reports about 75% improvement initially, now about 50% improvement after the last 2 weeks. The pain is still reduced significantly in the low back and left lower extremity. The patient reports still pain in the low back and the left posterior gluteus, posterior lateral thigh, lateral anterior thigh, anterior medial thigh, medial lower leg, sharp, tingling, burning, constant. The patient rates it at 5 on a scale of 10 at all times, average, worst and the least and is 5 on a scale of 10 today. The patient reports that he is having surgery tomorrow morning for diskectomy with Dr. Vicente Barillas. The patient reports no new motor or sensory deficits. He has been increasing his activities with greater distance walking, doing better with household activities as well as getting out of car, travelling. He usually is able to sleep fairly well without disturbance, although it can disturb him about every 6 hours at night at times. The patient reports no new motor or sensory deficits, no new bowel or bladder incontinence or other complaints and is overall feeling better in general. PHYSICAL EXAMINATION: VITAL SIGNS: The patient's blood pressure is 131/91, pulse 74, respirations 18, temperature 97.8 degrees Fahrenheit, height is 6 feet, weight is 278 pounds. GENERAL: The patient is awake, alert, oriented, appropriate, very pleasant demeanor. HEENT: Head is normocephalic, atraumatic. Extraocular movements intact and symmetrical. Oral cavity: Mucous membranes moist and pink. Dentition is intact. NECK: Shows anterior throat supple without palpable lymphadenopathy noted. Swallow reflex is symmetrical. CHEST: Shows normal on inspection. Breath sounds clear to auscultation bilaterally. HEART: Shows S1, S2 clear. No murmurs auscultated. ABDOMEN: Soft, nontender, nondistended. No palpable organomegaly is noted. No rebound or guarding demonstrated. BACK: The patient's back shows midline spine, slightly exaggerated thoracic kyphosis and minor flattening of lumbar lordotic curvature. Lumbar paraspinous muscle shows symmetrical on inspection; on palpation shows some moderate tenderness diffusely bilaterally. Good rotational motion both laterally as well as extension and flexion without significant difficulty. No tenderness over the sacrum or sacroiliac regions. EXTREMITIES: Lower extremities show deep tendon reflexes at 1+ in the patellar and tendo calcaneus tendons. Motor exam is approximately 4 on a scale of 5 on the left dorsiflexion and extension, 5/5 on the right. Peripheral pulses are 1+ bilaterally. No peripheral edema is noted. Options were discussed with the patient. The patient's old chart was reviewed as was his current medication regimen updated. Current review of systems updated today as well. We will hold on any further injection as the patient is having surgery tomorrow morning. We will have him follow up on an as needed basis at this time. The patient will check in preop as scheduled tomorrow morning and was reminded to remain n.p.o. after midnight tonight. JACK AYALA MD DR: ABHIJIT/philip JOB#: [id number] / [id number]
== END | disposition home or self-care (01) ==
LOC: PNCL 07:52
PROVIDERS: ATTEND Anesthesiology
DX: M51.16 Intervertebral disc disorders with radiculopathy, lumbar region (principal); M48.061 Spinal stenosis, lumbar region without neurogenic claudication; Z79.899 Other long term (current) drug therapy
CPT/HCPCS: G0463

== ENCOUNTER 2018-12-09 08:19 | Day surgery (SDC) | payer MEDICARE ==
--- NOTE | 2018-12-08 16:25 | PREOP HP ---
DATE OF SERVICE: 12/09/2018. DATE OF SURGERY: 12/09/2018. HISTORY OF PRESENT ILLNESS: The patient is a pleasant 58-year-old who has difficulty with sharp right-sided lower back pain, which he says feels like a stabbing pain. Along with that, he notices numbness and pain in the left anterior thigh and burning in that distribution as well, and he has feelings of left leg weakness. The problem has been present for more than 5 years. He said it started after multiple falls. He rates his pain as severe. Walking and standing increases the problem. Lying on his back flat helps him. He has been taking tramadol and Advil, but he says these are not helpful. He had chiropractic treatment that was not helpful. Epidural steroid injections did give him some relief, but did not make the pain resolve. PAST MEDICAL HISTORY: COPD, hypertension, GERD, depression, obesity, anxiety, colon cancer and AFib. FAMILY HISTORY: Diabetes and heart disease as well as cancer. SOCIAL HISTORY: He is . Smokes. Retired. 6 daily alcoholic drinks. ALLERGIES: No known drug allergies. CURRENT MEDICATIONS: Tramadol, Advil, hydrochlorothiazide, furosemide, omeprazole, metoprolol, Daliresp, tamsulosin, lisinopril, Montelukast, topiramate. REVIEW OF SYSTEMS: A 12-point review of systems was obtained and is noncontributory except for that mentioned above. PHYSICAL EXAMINATION: NEUROSURGERY EXAMINATION: GENERAL APPEARANCE: Alert, pleasant, in no acute distress. HEAD: Normocephalic and atraumatic. SKIN: Warm and dry. MUSCULOSKELETAL: Lumbar paraspinal muscle bulk is normal, restricted range of motion of the lumbar spine, [id number] tenderness of the lumbar spine with palpation, normal range of motion of the lower extremities bilaterally. EXTREMITIES: No clubbing, cyanosis or edema. NEUROLOGIC: Alert and oriented x3, normal recent and remote memory. Strength 5/5 in bilateral lower extremities. Sensory was intact to light touch in bilateral lower extremities except for decrease in sensation, left anterior thigh and knee. Reflexes are trace and symmetric in lower extremities bilaterally, negative straight leg raising bilaterally, positive femoral stretch test on the left. Normal gait. IMAGING: I reviewed a lumbar MRI scan from 10/22/2018. On that study, the principal abnormalities were left foraminal, extraforaminal disc protrusion with slightly posterior extension associated with left foraminal stenosis and compression of the left L4 nerve root. In the L3-L4, there is an element of central canal stenosis and mild foraminal narrowing on the left as well. ASSESSMENT/ PLAN: I believe the problems at L4-L5 are responsible for his pain. My recommendation is that he undergo transforaminal microdiscectomy at L4-L5 to decompress the left L4 nerve root. I did discuss this with him in detail. He understands. He would like to go ahead. We will make the arrangements. DELORES LYONS MD DR: LORENZO/philip JOB#: [id number] / [id number] NATHALIE
[~2018-12-09] VITALS: Ht 182.9 cm; Wt 126.6 kg
[~2018-12-09 08:19] MED LIST changes: +BACITRACIN 50,000 UNIT in IV NORMAL SALINE 1000ML BAG 1,000 ML IRR ONE; -BUME1TAB PO; +BUME1TAB3 PO; +BUPIVAC MPF-EPI 0.5%-1:200000 30 ML VIAL. ONE; -DOCU-109 PO; +GELATIN SPONGE SIZE 100. ONE; -HYDR-3164 PO; +HYDROmorphone 2 MG/ML VIAL IV PRN; +IV RINGERS,LACTATED 1000ML 1,000 ML IV SCH; +KETOROLAC 60 MG/2 ML INJ FOR OR. ONE; +LIDOCAINE 1% PF 2 ML VIAL. ID PRN; +METR-34 PO; -METR-84 PO; +MONT10TA49 PO; -MONT10TA9 PO; +MORPHINE SULFATE 4 MG/ML VIAL. IV PRN; +OMEP20CA10 PO; -OMEP20CA9 PO; +ONDANSETRON PF 4 MG/2 ML VIAL. IV PRN; -PANT40TA5 PO; +PANT40TA77 PO; +PROCHLORPERAZINE 10 MG/2 ML VIAL. IV PRN; +THROMBIN TOPICAL 20,000 UNIT SPRAY.SYRN KIT TP ONE; +fentaNYL PF VIAL 100 MCG/2 ML VIAL IV PRN
[2018-12-09] MEDS ORDERED: LIDOCAINE 2% PF 5 ML VIAL. ONE (09:13)
[2018-12-09] MEDS ORDERED: fentaNYL PF VIAL 100 MCG/2 ML VIAL ONE ×2 (09:13→13:41)
[2018-12-09] MEDS ORDERED: PROPOFOL 50 ML IV ONE ×2 (09:13→12:02)
[2018-12-09] MEDS ORDERED: PROPOFOL 20 ML IV ONE (09:13)
[2018-12-09] MEDS ORDERED: ceFAZolin SODIUM 3 GM in IV DEXTROSE 5% 100ML 100 ML IV PRN (09:13)
[2018-12-09] MEDS ORDERED: SUCCINYLCHOLINE 200 MG/10 ML VIAL. ONE (09:14)
[2018-12-09] MEDS ORDERED: ROCURONIUM 50 MG/5 ML VIAL. ONE (09:14)
[2018-12-09] MEDS ORDERED: REMIFENTANIL 2 MG VIAL. IV ONE (09:14)
[2018-12-09] MEDS ORDERED: 0.9 % SODIUM CHLORIDE 20 ML VIAL. IJ ONE (09:15)
[2018-12-09] MEDS ORDERED: ONDANSETRON PF 4 MG/2 ML VIAL. ONE (10:29)
[2018-12-09] MEDS ORDERED: DEXAMETHASONE SOD PHOS 20 MG/5 ML VIAL. ONE (10:29)
[2018-12-09] MEDS ORDERED: DESFLURANE > 120 MINUTES IH ONE (10:29)
[2018-12-09] MEDS ORDERED: PHENYLEPHRINE in 0.9% NACL PF 1 MG/10 ML SYRINGE. IV ONE (10:47)
[2018-12-09] MEDS ORDERED: ePHEDrine PF IN SALINE 50 MG/5 ML DISP.SYRIN IV ONE (10:55)
[2018-12-09] MEDS ORDERED: PHENYLEPHRINE 10 MG/ML VIAL. ONE ×2 (11:01→11:11)
--- NOTE | 2018-12-09 11:29 | DISCH ---
DISCHARGE INSTRUCTIONS Condition on Discharge Condition on Discharge: Stable Activity After Discharge Activity Instructions for Disc: Resume previous activity, Activity as tolerated , Other, see below Other activity instructions: no driving for a week Bathing Instructions: Shower-keep dressing dry Lifting Instructions after Dis: No heavy lifting, No pulling or pushing, Do not lift >10 pounds Exercise Instruction after Dis: Progress as tolerated Diet after Discharge Diet after Discharge: Regular Additional Diet Restrictions: resume home diet Wound Incision Care Wound/Incision Care: Ice to area for comfort, Change dressing Other wound/incision instructi: may remove dressing in 48 hours if dry then may shower, no soaking Checks after Discharge Checks after discharge: Check blood press - daily Contacting the DRJacqueline after DC Call your doctor for: Concerns you may have Follow-Up Follow up with: Dr. Lyons's nurse in 2 weeks [phone] Treatment/Equipment after DC Discharge Respiratory Equipmen: CPAP DELORES LYONS MD Dec 09, 2018 11:29
[2018-12-09] MEDS ORDERED: DOCU-109 PO (11:34)
[2018-12-09] MEDS ORDERED: HYDR-3164 PO (11:34)
[2018-12-09] MEDS: fentaNYL PF VIAL 100 MCG/2 ML VIAL IV PRN ×2 (13:49→14:00)
[2018-12-09] MEDS ORDERED: HYDROcodone/APAP 5/325MG 1 TAB TABLET PO ONE ×2 (14:00)
--- NOTE | 2018-12-09 14:10 | OP ---
DATE OF SURGERY: 12/09/2018 PREOPERATIVE DIAGNOSES: Foraminal disc herniation with severe lumbar radiculopathy, L4-L5, left. POSTOPERATIVE DIAGNOSES: Foraminal disc herniation with severe lumbar radiculopathy, L4-L5, left. OPERATION PERFORMED: Transforaminal microdiscectomy with decompression of the left L4 and L5 nerve roots. The operation was done with EMG monitoring, SSEP monitoring, fluoroscopy, microscopic dissection. SURGEON: Vicente Lyons M.D. RESEARCH ANIMAL ATTENDANT: JORDYN Escalante, assisted with the surgery. She assisted with the microdecompression as well as the closure. OPERATIVE INDICATIONS: The patient is a very pleasant 58-year-old man who developed severe intractable back and left leg pain. He had chiropractic treatment without help. He had steroid injections, which gave him some temporary relief, but the pain remained very severe and on imaging studies, he had the above-mentioned findings. I recommended lumbar microsurgical decompression. I spoke with him about the surgery, the risks, technique and the expected postoperative course. I spoke him about the problems of potential chronic back pain with this type of above procedure. He understood. He wished to go ahead. We made the arrangements. DESCRIPTION OF PROCEDURE: Following general endotracheal anesthesia, the patient was positioned prone on the Peter table. Lumbar region prepped and draped in the standard fashion. TATI hose and AV impulse boots were applied for DVT prophylaxis. A microscope was draped. Fluoroscopy was draped and brought in the field. Monitoring was established. Ancef 3 grams was given less than 1 hour prior to initiation of the surgery. Using fluoroscopic guidance, an incision was made over the L4-L5 interspace. I dissected down skin and subcutaneous tissue and reflected the paraspinal muscles, left and placed a [place] microdisk retractor. I brought in the microscope and using the high-speed air drill, I burred down a hemilaminotomy and then worked laterally and unroofed the facet. I visualized very well the L4 and the L5 roots. There was a large superolateral disc herniation in Kambin's triangle and extending laterally compressing the L4 root, but also a medial extent of this was compressing the L5 root. I incised the ligament annulus. I performed a discectomy with pituitary rongeurs. I pulled back the foraminal fragments and fully decompressed the entire region. I also performed a generous conventional discectomy. Following this, I irrigated copiously with antibiotic solution. I assured myself there were no retained fragments. I did use during the operation the bipolar cautery as well as bone wax. At the end of the operation, I felt that I had an excellent decompression. There were no retained fragments. I removed the retractor, obtained hemostasis in the muscle, irrigated copiously, closed the wound in layers with absorbable suture. The skin was closed with a 4 -0 subcuticular stitch. I felt the surgery went very well and the patient was taken to the recovery room in excellent condition. VICENTE LYONS MD DR: LORENZO/philip JOB#: [id number] / [id number] NATHALIE
[2018-12-09 15:40] VITALS: BP 104/62
--- NOTE | 2018-12-13 17:09 | PATHOLOGY ---
[facility] Accession Number: [id number] . 01 Material submitted: . LUMBAR DISC AND DECOMPRESSION . 01 Clinical history: . Lumbar herniated disc and radiculopathy . 02 Diagnosis: Segments of fibrocartilaginous, fibroadipose, and skeletal muscle tissue and bone, lumbar disc and decompression: - Degenerative changes of fibrocartilaginous tissue. . (JPM:mm; 12/13/2018) [facility]/12/13/2018 . 02 Comment: There is no evidence of an acute inflammatory process or malignancy. . (JPM:mml; 12/13/2018) . 02 Electronically signed: . Gary Velazquez MD, Pathologist NPI- [id number] . 01 Gross description: . Received in formalin labeled "Gary Roche, lumbar disc and decompression," are several pieces of glistening, fibrous tissue measuring 4.5 x 3.3 x 1.4 cm in aggregate dimensions, containing small fragments of possible bone. The tissue is submitted representatively in cassette A1, following decalcification. (TSD; 12/10/2018) TOB/TOB . 02 Pathologist provided ICD-10: M51.36 . 02 CPT . 687946, [id number] Specimen Comment: A courtesy copy of this report has been sent to Specimen Comment: [phone], . Specimen Comment: Report sent to and Specimen Comment: A duplicate report has been generated due to demographic updates. Performed at: [address] [facility] [address], [place], [place] [id number] MD Marino Glass MD Phone: [phone] Performed at: [facility] [address], [place] [id number] MD Gary Velazquez MD Phone: [phone]
[2019-01-04] MEDS ORDERED: OXYC15TA61 PO (15:28)
[2019-01-04] MEDS ORDERED: OXYC5TAB4 PO (15:28)
[2019-01-05] MEDS ORDERED: AMPI3VIA IV (10:12)
[2019-02-23] MEDS ORDERED: CEFE2VIA2 IV (13:51)
[2019-02-23] MEDS ORDERED: DIGO250T PO (13:51)
[2019-02-23] MEDS ORDERED: DEXT15DR5 EACHEYE (13:51)
[2019-02-23] MEDS ORDERED: [UNRECOGNIZED DRUG - CODE] IJ (13:51)
[2019-02-23] MEDS ORDERED: [UNRECOGNIZED DRUG - CODE] IV (13:51)
[2019-02-23] MEDS ORDERED: MVI,5VIA2 IV (13:51)
[2019-02-23] MEDS ORDERED: ASPI325T8 PO (13:51)
[2019-02-23] MEDS ORDERED: DIGO125T PO (13:51)
[2019-06-20] MEDS ORDERED: CLON1TAB11 PO (17:40)
[2019-06-20] MEDS ORDERED: TAMS0.4C97 PO (17:40)
[2019-06-20] MEDS ORDERED: APIX5TAB PO (17:40)
[2019-06-20] MEDS ORDERED: LORA10TA3 PO (17:53)
[2019-06-20] MEDS ORDERED: HYDR-2868 PO (17:53)
[2019-06-20] MEDS ORDERED: FAMO-63 PO (17:53)
[2019-06-20] MEDS ORDERED: METO25TA4 PO (19:49)
[2019-06-20] MEDS ORDERED: LEVE500T6 PO (19:49)
[2019-06-20] MEDS ORDERED: FURO40TA4 PO (19:49)
[2019-06-20] MEDS ORDERED: MONT10TA49 PO (19:49)
[2019-06-20] MEDS ORDERED: GUAI-108 PO (19:49)
[2019-06-20] MEDS ORDERED: ISOS30TA4 PO (19:49)
[2019-06-20] MEDS ORDERED: FLUT1BLS8 IH (19:49)
[2019-06-20] MEDS ORDERED: MIRT15TA3 PO (19:49)
[2019-06-20] MEDS ORDERED: OMEP20TA8 PO (19:49)
[2019-06-20] MEDS ORDERED: SERT100T PO (19:49)
[2019-06-20] MEDS ORDERED: ALBU0.63 NEB (19:49)
[2019-06-24] MEDS ORDERED: TRAM50TA PO (08:57)
[2019-06-24] MEDS ORDERED: CLON1TAB11 PO (08:57)
== END 2018-12-09 15:40 | disposition home or self-care (01) ==
LOC: SURG 08:19
PROVIDERS: ATTEND Neurological Surgery
DX: M51.16 Intervertebral disc disorders with radiculopathy, lumbar region (principal); I10 Essential (primary) hypertension; K21.9 Gastro-esophageal reflux disease without esophagitis; F41.9 Anxiety disorder, unspecified; F32.9 Major depressive disorder, single episode, unspecified; I48.91 Unspecified atrial fibrillation; J44.9 Chronic obstructive pulmonary disease, unspecified; E66.9 Obesity, unspecified; Z85.038 Personal history of other malignant neoplasm of large intestine; Z83.3 Family history of diabetes mellitus; Z82.49 Family history of ischemic heart disease and other diseases of the circulatory system; Z72.89 Other problems related to lifestyle; F17.200 Nicotine dependence, unspecified, uncomplicated; Z79.899 Other long term (current) drug therapy; Z68.37 Body mass index [BMI] 37.0-37.9, adult
CPT/HCPCS: 63030; 97162; 97530; A7015; G8978; G8979; G8980; J0330; J1100; J1885; J2001; J2370; J2405; J2704; J3010; J3490; J7030; J7120; 76000; 88304; 88311; J0696

== ENCOUNTER 2019-02-04 14:51 | Inpatient (IN) | payer MEDICARE ==
[2019-02-04] VITALS (11 sets, daily range): BP systolic 80–124; BP diastolic 55–85
[~2019-02-04] VITALS: Ht 188 cm; Wt 136.1 kg
[~2019-02-04 14:51] MED LIST changes: +AMPI3VIA IV; -BACITRACIN 50,000 UNIT in IV NORMAL SALINE 1000ML BAG 1,000 ML IRR ONE; -BUPIVAC MPF-EPI 0.5%-1:200000 30 ML VIAL. ONE; +DOCU-109 PO; -GELATIN SPONGE SIZE 100. ONE; +HYDR-3164 PO; -HYDROmorphone 2 MG/ML VIAL IV PRN; -IV RINGERS,LACTATED 1000ML 1,000 ML IV SCH; -KETOROLAC 60 MG/2 ML INJ FOR OR. ONE; -LIDOCAINE 1% PF 2 ML VIAL. ID PRN; -MONT10TA49 PO; +MONT10TA9 PO; -MORPHINE SULFATE 4 MG/ML VIAL. IV PRN; -ONDANSETRON PF 4 MG/2 ML VIAL. IV PRN; +OXYC15TA61 PO; +OXYC5TAB4 PO; +PANT40TA5 PO; -PANT40TA77 PO; -PROCHLORPERAZINE 10 MG/2 ML VIAL. IV PRN; -THROMBIN TOPICAL 20,000 UNIT SPRAY.SYRN KIT TP ONE; -fentaNYL PF VIAL 100 MCG/2 ML VIAL IV PRN
[2019-02-04] MEDS ORDERED: fentaNYL PF VIAL 100 MCG/2 ML VIAL IV ONE ×2 (15:15→17:45)
[2019-02-04] MEDS ORDERED: PIP/TAZO PER PHARMACY MC PRN (15:15)
[2019-02-04] MEDS ORDERED: MIDAZOLAM HCL/PF 5 MG/5 ML VIAL. IV ONE (15:15)
[2019-02-04] MEDS ORDERED: IV NORMAL SALINE 1000ML BAG 1,000 ML IV ONE ×2 (15:15→16:00)
[2019-02-04 15:18] LABS: BASO % 0 % (0-3); EOS % 0 % (0-3); HEMATOCRIT 35.6 % (39.0-53.0); HEMOGLOBIN 11.3 g/dL (13.0-17.5); LYMPH # 0.6 x10^3/uL (1.0-4.8); LYMPH % 5 % (24-48); MEAN CORPUSCULAR HEMOGLOBIN 31 pg (25-35); MEAN CORPUSCULAR HGB CONC 32 g/dL (31-37); MEAN CORPUSCULAR VOLUME 97 fL (79-100); MONO # 1.3 x10^3/uL (0.0-1.1); MONO % 11 % (0-9); NEUT # 9.7 x10^3uL (1.8-7.7); NEUT % 84 % (31-73); PLATELET COUNT 471 x10^3/uL (140-400); RED BLOOD COUNT 3.68 x10^6/uL (4.30-5.70); RED CELL DISTRIBUTION WIDTH 14.7 % (11.5-14.5); WHITE BLOOD COUNT 11.6 x10^3/uL (4.0-11.0)
[2019-02-04] MEDS ORDERED: NALOXONE 2 MG/2 ML DISP.SYRIN. ONE (15:22)
[2019-02-04] MEDS ORDERED: ETOMIDATE 20 MG/10 ML VIAL. IV ONE ×2 (15:22→16:45)
[2019-02-04] MEDS ORDERED: ROCURONIUM 50 MG/5 ML VIAL. ONE (15:23)
[2019-02-04 15:27] LABS: PROTHROMBIN TIME PATIENT 15.4 SEC (11.7-14.0)
[2019-02-04] MEDS: PIPERACILLIN/TAZOBACTAM 3.375 GM in IV NORMAL SALINE 50ML 50 ML IV SCH (15:30)
--- NOTE | 2019-02-04 15:33 | RAD ---
Portable chest, 02/04/2019: HISTORY: Altered mental status Comparison is made to a study from 12/06/2018. The patient is rotated to the right. The ET tube tip lies 6 cm above the pauline. An NG tube extends at least to the level the GE junction although its tip is not visible. A right PICC extends to the level the atriocaval junction. The heart is probably within normal limits in size for the AP technique. There is calcific plaquing of the aorta. There is minimal linear atelectasis on the right. There is mild thickening of the minor fissure on the right. No pulmonary consolidation is seen. There is no evidence of pleural fluid. IMPRESSION: 1. Satisfactory tube positions. 2. No acute infiltrates. Electronically signed by: Javier Orlando MD (02/04/2019 3:30 PM) [facility]
[2019-02-04 15:37] LABS: ALBUMIN 3.3 g/dL (3.4-5.0); ALBUMIN/GLOBULIN RATIO 0.8 (1.0-1.7); CALCIUM 8.9 mg/dL (8.5-10.1); CREATININE 2.3 mg/dL (0.7-1.3); GFR 29.2; MAGNESIUM 2.3 mg/dL (1.8-2.4); TOTAL BILIRUBIN 0.3 mg/dL (0.2-1.0); TOTAL PROTEIN 7.7 g/dL (6.4-8.2)
--- NOTE | 2019-02-04 15:39 | RAD ---
CT CODE STROKE HEAD WO Indication: PT UNRESPONSIVE PREV SENT Exposure: One or more of the following individualized dose reduction techniques were utilized for this examination: 1. Automated exposure control 2. Adjustment of the mA and/or kV according to patient size 3. Use of iterative reconstruction technique. Technique: Standard imaging without intravenous contrast. Comparison with images from July 10, 2016. That report is not available. No evidence of acute intracranial hemorrhage, mass effect, midline shift or abnormal extra-axial fluid collection. Mild patchy hypodensity in the white matter bilaterally, nonspecific but often due to chronic small vessel ischemic disease. Mild prominence of ventricles and sulci compatible with mild involutional change or atrophy. Orbits appear unremarkable. Left mastoid air cells are hyperpneumatized. Mild ethmoid sinus mucosal thickening. No acute skull abnormality. IMPRESSION: No evidence of acute intracranial hemorrhage or mass effect. FOR INTERNAL CODING PURPOSES Critical result: Findings discussed with nurse practitioner Cora at 02/04/2019 3:35 PM. RESULT CODE: (C) Electronically signed by: Hussain Emanuel MD (02/04/2019 3:36 PM) [id number]
[2019-02-04 15:42] LABS: POTASSIUM 6.2 mmol/L (3.5-5.1)
[2019-02-04] MEDS ORDERED: PROPOFOL 10 MG/ML (20ML) VIAL. IV ONE (15:45)
[2019-02-04] MEDS ORDERED: ASPIRIN RECTAL 300 MG SUPP. PR STA (15:52)
[2019-02-04 15:59] LABS: BASE EXCESS COOX -6 mmol/L (-3-3); HCO3 COOX 22 mmol/L (21-28); METHEMOGLOBIN 0.4 % (0.0-1.9); OXYHEMOGLOBIN 91.7 %; PCO2 COOX 59 mmHg (35-46); PO2 COOX 74 mmHg (65-108); SAT O2 COOX 92 % (92-99)
[2019-02-04] MEDS ORDERED: SODIUM BICARB ADULT 8.4% 50 MEQ/50 ML DISP.SYRIN. IV ONE (16:00)
[2019-02-04] MEDS ORDERED: levETIRAcetam 1,000 MG in IV DEXTROSE 5% 100ML 100 ML IV ONE (16:00)
[2019-02-04] MEDS ORDERED: PIPERACILLIN/TAZOBACTAM 4.5 GM in IV NORMAL SALINE 100ML 100 ML IV ONE (16:00)
[2019-02-04] MEDS ORDERED: CALCIUM GLUCONATE 1,000 MG/10 ML VIAL. IVP ONE (16:00)
[2019-02-04] MEDS ORDERED: PROPOFOL 50 ML IV ONE (16:05)
--- NOTE | 2019-02-04 16:11 | PHYS DOC ---
Past Medical History Past Medical History: Asthma, CHF, COPD Additional Past Medical Histor: emphysema, lower ext edema,CPAP at night, oxygen at night Past Surgical History: Cancer Surgery Additional Past Surgical Histo: R elbow (bursitis), hernia, colectomy, mouth Cancer- laser surgery Alcohol Use: Heavy Drug Use: None Adult General Chief Complaint Chief Complaint: ALTERED MENTAL STATUS HPI HPI Patient is a 58 year old male brought in by ambulance from [facility] with altered mental status. Apparently according to the nurse I spoke with over there [place] at 8 AM he wanted the dose of pain medicine they gave it to him. Apparently he did not sleep very well last night he took Ambien but still did not sleep well. last saw him at 11 PM he was fairly normal nurse at 8 AM he was relatively normal little sleepy but otherwise okay. He slept most of the morning and she let him rest and then she told me that she checked on him at 2 PM and he was pretty groggy not really acting normally so she called 911 on their arrival sat was in the 70s patient basically agonal respirations and was brought in on bag valve mask. History is limited by the patient's mental status Review of Systems Review of Systems History is limited by the acuity of condition and altered mental status Current Medications Current Medications Current Medications Medications (Trade) Dose Ordered Sig/Sheryl Start Time Stop Time Status Last Admin Dose Admin Aspirin (Aspirin) 300 mg 1X STAT 02/04/19 15:52 02/04/19 15:55 DC Etomidate (Amidate) 20 mg STK-MED ONCE 02/04/19 15:22 02/04/19 15:23 DC Fentanyl Citrate (Fentanyl 2ml Vial) 50 mcg 1X ONCE 02/04/19 15:15 02/04/19 15:16 DC Levetiracetam 1000 mg/Dextrose 110 ml @ 440 mls/hr 1X ONCE 02/04/19 16:00 02/04/19 16:14 UNV Midazolam HCl (Versed) 2 mg 1X ONCE 02/04/19 15:15 02/04/19 15:16 DC Naloxone HCl (Narcan) 2 mg STK-MED ONCE 02/04/19 15:22 02/04/19 15:23 DC Piperacillin Sod/ Tazobactam Sod (Zosyn Per Pharmacy) 1 each PRN DAILY PRN 02/04/19 15:15 UNV Piperacillin Sod/ Tazobactam Sod 4.5 gm/Sodium Chloride 100 ml @ 200 mls/hr 1X ONCE 02/04/19 16:00 02/04/19 16:29 02/04/19 15:33 200 MLS/HR Propofol (Diprivan) 200 mg 1X ONCE 02/04/19 15:45 02/04/19 15:46 DC Rocuronium [place] (Zemuron) 50 mg STK-MED ONCE 02/04/19 15:23 02/04/19 15:24 DC Sodium Bicarbonate (Sodium Bicarb Adult 8.4% Syr) 50 meq 1X ONCE 02/04/19 16:00 02/04/19 16:01 Sodium Chloride 1,000 ml @ 1,000 mls/hr 1X ONCE 02/04/19 16:00 02/04/19 16:59 Allergies Allergies Allergies Coded Allergies Type Severity Reaction Last Updated Verified No Known Drug Allergies 12/09/18 No Physical Exam Physical Exam Constitutional: Well developed, obtunded with agonal respirations HENT: Normocephalic, atraumatic, bilateral external ears normal, oropharynx t, no oral exudates, nose normal. []Dry Eyes: Pinpoint pupils initially see below Neck: Normal range of motion, no tenderness, supple, no stridor. [] Cardiovascular: Tachycardic and irregular Lungs & Thorax: Really inadequate respirations there is some gargling noted. Abdomen: Bowel sounds normal, soft, no tenderness, no masses, no pulsatile masses. [] Skin: Warm, dry, no erythema, no rash. [] Some pallor noted Back: No tenderness, no CVA tenderness. [] Extremities: No tenderness, no cyanosis, no clubbing, ROM intact, edema noted diffusely bilateral lower extremities Neurologic: Patient is having intermittent myoclonic jerking throughout all 4 extremities really does not withdraw or localized pain at all does moan some initially the pupils were pinpoint we gave 2 mg of Narcan in the pupils dilated immediately became somewhat more agitated but still was not making any sense and not phonating and all still not really breathing adequately so that decision was made to intubate the patient Psychologic: Unable to assess Current Patient Data Vital Signs Vital Signs Date Time Temp Pulse Resp B/P (MAP) Pulse Ox O2 Delivery O2 Flow Rate FiO2 02/04/19 15:07 100 Ventilator Lab Values Laboratory Tests Test 02/04/19 14:55 White Blood Count 11.6 x10^3/uL (4.0-11.0) H Red Blood Count 3.68 x10^6/uL (4.30-5.70) L Hemoglobin 11.3 g/dL (13.0-17.5) L Hematocrit 35.6 % (39.0-53.0) L Mean Corpuscular Volume 97 fL (79-100) Mean Corpuscular Hemoglobin 31 pg (25-35) Mean Corpuscular Hemoglobin Concent 32 g/dL (31-37) Red Cell Distribution Width 14.7 % (11.5-14.5) H Platelet Count 471 x10^3/uL (140-400) H Neutrophils (%) (Auto) 84 % (31-73) H Lymphocytes (%) (Auto) 5 % (24-48) L Monocytes (%) (Auto) 11 % (0-9) H Eosinophils (%) (Auto) 0 % (0-3) Basophils (%) (Auto) 0 % (0-3) Neutrophils # (Auto) 9.7 x10^3uL (1.8-7.7) H Lymphocytes # (Auto) 0.6 x10^3/uL (1.0-4.8) L Monocytes # (Auto) 1.3 x10^3/uL (0.0-1.1) H Eosinophils # (Auto) 0.0 x10^3/uL (0.0-0.7) Basophils # (Auto) 0.0 x10^3/uL (0.0-0.2) Prothrombin Time 15.4 SEC (11.7-14.0) H Prothrombin Time INR 1.3 (0.8-1.1) H Sodium Level 138 mmol/L (136-145) Potassium Level 6.2 mmol/L (3.5-5.1) *H Chloride Level 98 mmol/L (98-107) Carbon Dioxide Level 28 mmol/L (21-32) Anion Gap 12 (6-14) Blood Urea Nitrogen 23 mg/dL (8-26) Creatinine 2.3 mg/dL (0.7-1.3) H Estimated GFR (Cockcroft-Gault) 29.2 BUN/Creatinine Ratio 10 (6-20) Glucose Level 123 mg/dL (70-99) H Lactic Acid Level 2.1 mmol/L (0.4-2.0) H Calcium Level 8.9 mg/dL (8.5-10.1) Magnesium Level 2.3 mg/dL (1.8-2.4) Total Bilirubin 0.3 mg/dL (0.2-1.0) Aspartate Amino Transferase (AST) 144 U/L (15-37) H Alanine Aminotransferase (ALT) 122 U/L (16-63) H Alkaline Phosphatase 92 U/L (46-116) Troponin I Quantitative 0.310 ng/mL (0.000-0.055) RQ-[id number]-F-Type Natriuretic Peptide 7488 pg/mL (0-124) H Total Protein 7.7 g/dL (6.4-8.2) Albumin 3.3 g/dL (3.4-5.0) L Albumin/Globulin Ratio 0.8 (1.0-1.7) L Lipase 110 U/L (73-393) Procalcitonin < 0.10 ng/mL (0.00-0.10) Ethyl Alcohol Level < 10 mg/dL (0-10) Laboratory Tests 02/04/19 14:55 Laboratory Tests 02/04/19 14:55 EKG EKG []Probable A. fib RVR rate related ST changes no obvious STEMI was seen this was interpreted by me the time of the clinical encounter. Radiology/Procedures Radiology/Procedures [] Impressions: IMPRESSION: 1. Satisfactory tube positions. 2. No acute infiltrates. Electronically signed by: Javier Orlando MD (02/04/2019 3:30 PM) [facility] DICTATED and SIGNED BY: JAVIER ORLANDO MD DATE: 02/04/[address] CODE STROKE HEAD WO Indication: PT UNRESPONSIVE PREV SENT Exposure: One or more of the following individualized dose reduction techniques were utilized for this examination: 1. Automated exposure control 2. Adjustment of the mA and/or kV according to patient size 3. Use of iterative reconstruction technique. Technique: Standard imaging without intravenous contrast. Comparison with images from July 10, 2016. That report is not available. No evidence of acute intracranial hemorrhage, mass effect, midline shift or abnormal extra-axial fluid collection. Mild patchy hypodensity in the white matter bilaterally, nonspecific but often due to chronic small vessel ischemic disease. Mild prominence of ventricles and sulci compatible with mild involutional change or atrophy. Orbits appear unremarkable. Left mastoid air cells are hyperpneumatized. Mild ethmoid sinus mucosal thickening. No acute skull abnormality. IMPRESSION: No evidence of acute intracranial hemorrhage or mass effect. FOR INTERNAL CODING PURPOSES Course & Med Decision Making Course & Med Decision Making Pertinent Labs and Imaging studies reviewed. (See chart for details) []58-year-old male with a comp K recent past medical history lumbar laminectomy couple given epidural infection per chart review who was brought in by ambulance with altered mental status. Apparently patient has been on fentanyl patch and oxycodone see his complete med list for details. Apparently was found at 2 PM altered with agonal respirations did have pinpoint pupils did have transient response to narcan but still appeared globaly encephalopathic with some myoclonic jerking that did appear to have a poor prognostic character so we made decision to intubate the patient we did activate a stroke alert initially before we got a complete history Intubation note: Emergent procedure Mac 4 blade 8-20 of etomidate and 100 rocuronium grade 1 view patient was preoxygenated to the best of our ability confirmed by chest x-ray and end-tidal CO2 Head CT was negative I did speak with Dr. Salas who recommended a Keppra load and conservative management for now no further imaging needed at this time emergently Discussed with Dr. Nguyen at 4 PM will admit to the hospital ICU for further management and care as noted above. Of note blood pressure was a little soft but did come up with fluids in the emergency room we have cultured the patient we gave IV Zosyn temperature was 100.0. Patient has been treated for a recent spinal infection I did medicate with the family the as best as I could, with the plan as going right now. When necessary aspirin was ordered for the elevated troponin this is likely related to I suspect underlying hypoxic anoxic injury rather than an acute DC. Troponins will be cycled in-house. Potassium was treated with IV fluids as well as a dose of sodium bicarbonate and calcium gluconate and aware of high potassium. Propofol low dose was given for sedation patient did have some mild agitation as of 4:10 PM as the rocuronium was wearing off. Critical care time was 55 minutes exclusive of procedures. Dragon Disclaimer Dragon Disclaimer This electronic medical record was generated, in whole or in part, using a voice recognition dictation system. Departure Departure Impression: Primary Impression: Altered mental status Additional Impressions: Hyperkalemia Elevated LFTs Disposition: ADMITTED INPATIENT Admitting Physician: Terra Nguyen Condition: CRITICAL Referrals: Roseann NGUYEN MD (PCP) Problem Qualifiers AIDAN PITTS MD Feb 04, 2019 16:11
[2019-02-04] MEDS ORDERED: NALOXONE 2 MG/2 ML DISP.SYRIN. IV ONE (16:45)
[2019-02-04] MEDS ORDERED: ROCURONIUM 50 MG/5 ML VIAL. IV ONE (16:45)
[2019-02-04] MEDS: IV NORMAL SALINE 1000ML BAG 1,000 ML IV SCH ×2 (17:22→23:35)
[2019-02-04] MEDS ORDERED: NOREPINEPHRIN 8MG/250ML PREMIX 250 ML IV PRN (17:30)
[2019-02-04] MEDS ORDERED: MIDAZOLAM HCL/PF 2 MG/2 ML VIAL. IV ONE (17:45)
--- NOTE | 2019-02-04 18:20 | PDOC1 ---
History and Physical Past Medical History Cardiovascular: AFIB, HTN Pulmonary: COPD, Other CENTRAL NERVOUS SYSTEM: Other GI: GERD Heme/Onc: Cancer Hepatobiliary: No pertinent hx Psych: Anxiety, Depression Rheumatologic: No pertinent hx Infectious disease: No pertinent hx Renal/: Benign prostatic enlarg. Endocrine: No pertinent hx Past Surgical History Past Surgical History: Hernia Repair, Colectomy, Other Family History Family History: Diabetes, Heart Disease Social History ALCOHOL: occassional Drugs: None Current Problem List Problem List Problems Medical Problems: (1) Altered mental status Status: Acute (2) Elevated LFTs Status: Acute (3) Hyperkalemia Status: Acute Current Medications Current Medications Current Medications Medications (Trade) Dose Ordered Sig/Sheryl Start Time Stop Time Status Last Admin Dose Admin Aspirin (Aspirin) 300 mg 1X STAT 02/04/19 15:52 02/04/19 15:55 DC 02/04/19 17:11 300 MG Calcium Gluconate (Calcium Gluconate) 1,000 mg 1X ONCE 02/04/19 16:00 02/04/19 16:01 DC 02/04/19 17:01 1,000 MG Dopamine HCl/ Dextrose 250 ml @ As Directed STK-MED ONCE 02/04/19 17:25 02/04/19 17:26 DC Etomidate (Amidate) 20 mg 1X ONCE 02/04/19 16:45 02/04/19 16:46 DC 02/04/19 15:00 20 MG Fentanyl Citrate (Fentanyl 2ml Vial) 50 mcg 1X ONCE 02/04/19 17:45 02/04/19 17:46 DC Levetiracetam 1000 mg/Dextrose 110 ml @ 440 mls/hr 1X ONCE 02/04/19 16:00 02/04/19 16:14 DC 02/04/19 16:54 440 MLS/HR Midazolam HCl (Versed) 2 mg 1X ONCE 02/04/19 17:45 02/04/19 17:46 DC Naloxone HCl (Narcan) 2 mg 1X ONCE 02/04/19 16:45 02/04/19 16:46 DC 02/04/19 14:57 2 MG Norepinephrine Bitartrate 250 ml @ 1.875 mls/ hr CONT PRN 02/04/19 17:30 Piperacillin Sod/ Tazobactam Sod (Zosyn Per Pharmacy) 1 each PRN DAILY PRN 02/04/19 15:15 Piperacillin Sod/ Tazobactam Sod 3.375 gm/Sodium Chloride 50 ml @ 100 mls/hr Q6HRS 02/05/19 00:00 02/04/19 15:30 100 MLS/HR Piperacillin Sod/ Tazobactam Sod 4.5 gm/Sodium Chloride 100 ml @ 200 mls/hr 1X ONCE 02/04/19 16:00 02/04/19 16:29 DC 02/04/19 15:33 200 MLS/HR Propofol 50 ml @ As Directed STK-MED ONCE 02/04/19 16:05 02/04/19 16:06 DC Propofol (Diprivan) 200 mg 1X ONCE 02/04/19 15:45 02/04/19 15:46 DC 02/04/19 16:10 200 MG Rocuronium [place] (Zemuron) 100 mg 1X ONCE 02/04/19 16:45 02/04/19 16:46 DC 02/04/19 15:00 100 MG Sodium Bicarbonate (Sodium Bicarb Adult 8.4% Syr) 50 meq 1X ONCE 02/04/19 16:00 02/04/19 16:01 DC 02/04/19 17:11 50 MEQ Sodium Chloride 1,000 ml @ 125 mls/hr Q8H 02/04/19 16:09 02/05/19 16:08 02/04/19 17:22 125 MLS/HR Allergies Allergies Allergies Coded Allergies Type Severity Reaction Last Updated Verified No Known Drug Allergies 12/09/18 No ROS Review of System CONSTITUTIONAL: No fever or chills EYES: No recent changes SKIN: No rash or itching CARDIOVASCULAR: No chest pain, syncope, palpitations, or edema RESPIRATORY: No SOB or cough GASTROINTESTINAL: No nausea, vomiting or abdominal pain NEUROLOGICAL: No headaches or weakness ENDOCRINE: No cold or heat intolerance GENITOURINARY: No urgency or frequency of urination MUSCULOSKELETAL: No back pain or joint pain LYMPHATICS: No enlarged lymph nodes PSYCHIATRIC: No anxiety or depression Physical Exam Physical Exam GEN.: No apparent distress. Alert and oriented. HEENT: Head is normocephalic, atraumatic NECK: Supple. LUNGS: Clear to auscultation. HEART: RRR, S1, S2 present. Peripheral pulses intact ABDOMEN: Soft, nontender. Positive bowel sounds. EXTREMITIES: Without any cyanosis. NEUROLOGIC: Normal speech, normal tone PSYCHIATRIC: Normal affect, normal mood. SKIN: No ulcerations Vitals Vitals Vital Signs Date Time Temp Pulse Resp B/P (MAP) Pulse Ox O2 Delivery O2 Flow Rate FiO2 02/04/19 17:31 114 22 02/04/19 17:01 100 Ventilator 02/04/19 14:51 100.0 116/79 (91) 15.0 100.0 Labs Labs Laboratory Tests Test 02/04/19 14:55 02/04/19 15:50 White Blood Count 11.6 x10^3/uL (4.0-11.0) Red Blood Count 3.68 x10^6/uL (4.30-5.70) Hemoglobin 11.3 g/dL (13.0-17.5) Hematocrit 35.6 % (39.0-53.0) Mean Corpuscular Volume 97 fL (79-100) Mean Corpuscular Hemoglobin 31 pg (25-35) Mean Corpuscular Hemoglobin Concent 32 g/dL (31-37) Red Cell Distribution Width 14.7 % (11.5-14.5) Platelet Count 471 x10^3/uL (140-400) Neutrophils (%) (Auto) 84 % (31-73) Lymphocytes (%) (Auto) 5 % (24-48) Monocytes (%) (Auto) 11 % (0-9) Eosinophils (%) (Auto) 0 % (0-3) Basophils (%) (Auto) 0 % (0-3) Neutrophils # (Auto) 9.7 x10^3uL (1.8-7.7) Lymphocytes # (Auto) 0.6 x10^3/uL (1.0-4.8) Monocytes # (Auto) 1.3 x10^3/uL (0.0-1.1) Eosinophils # (Auto) 0.0 x10^3/uL (0.0-0.7) Basophils # (Auto) 0.0 x10^3/uL (0.0-0.2) Prothrombin Time 15.4 SEC (11.7-14.0) Prothromb Time International Ratio 1.3 (0.8-1.1) Sodium Level 138 mmol/L (136-145) Potassium Level 6.2 mmol/L (3.5-5.1) Chloride Level 98 mmol/L (98-107) Carbon Dioxide Level 28 mmol/L (21-32) Anion Gap 12 (6-14) Blood Urea Nitrogen 23 mg/dL (8-26) Creatinine 2.3 mg/dL (0.7-1.3) Estimated GFR (Cockcroft-Gault) 29.2 BUN/Creatinine Ratio 10 (6-20) Glucose Level 123 mg/dL (70-99) Lactic Acid Level 2.1 mmol/L (0.4-2.0) Calcium Level 8.9 mg/dL (8.5-10.1) Magnesium Level 2.3 mg/dL (1.8-2.4) Total Bilirubin 0.3 mg/dL (0.2-1.0) Aspartate Amino Transf (AST/SGOT) 144 U/L (15-37) Alanine Aminotransferase (ALT/SGPT) 122 U/L (16-63) Alkaline Phosphatase 92 U/L (46-116) Creatine Kinase 494 U/L (39-308) Troponin I Quantitative 0.310 ng/mL (0.000-0.055) [id number]-Type Natriuretic Peptide 7488 pg/mL (0-124) Total Protein 7.7 g/dL (6.4-8.2) Albumin 3.3 g/dL (3.4-5.0) Albumin/Globulin Ratio 0.8 (1.0-1.7) Lipase 110 U/L (73-393) Procalcitonin < 0.10 ng/mL (0.00-0.10) Ethyl Alcohol Level < 10 mg/dL (0-10) O2 Saturation 92 % (92-99) Arterial Blood pH 7.20 (7.35-7.45) Arterial Blood pCO2 at Patient Temp 59 mmHg (35-46) Arterial Blood pO2 at Patient Temp 74 mmHg (65-108) Arterial Blood HCO3 22 mmol/L (21-28) Arterial Blood Base Excess -6 mmol/L (-3-3) Oxyhemoglobin 91.7 % Methemoglobin 0.4 % (0.0-1.9) Carbon Monoxide, Quantitative 0.3 % (0.0-1.9) FiO2 60 Laboratory Tests Test 02/04/19 14:55 02/04/19 15:50 White Blood Count 11.6 x10^3/uL (4.0-11.0) Red Blood Count 3.68 x10^6/uL (4.30-5.70) Hemoglobin 11.3 g/dL (13.0-17.5) Hematocrit 35.6 % (39.0-53.0) Mean Corpuscular Volume 97 fL (79-100) Mean Corpuscular Hemoglobin 31 pg (25-35) Mean Corpuscular Hemoglobin Concent 32 g/dL (31-37) Red Cell Distribution Width 14.7 % (11.5-14.5) Platelet Count 471 x10^3/uL (140-400) Neutrophils (%) (Auto) 84 % (31-73) Lymphocytes (%) (Auto) 5 % (24-48) Monocytes (%) (Auto) 11 % (0-9) Eosinophils (%) (Auto) 0 % (0-3) Basophils (%) (Auto) 0 % (0-3) Neutrophils # (Auto) 9.7 x10^3uL (1.8-7.7) Lymphocytes # (Auto) 0.6 x10^3/uL (1.0-4.8) Monocytes # (Auto) 1.3 x10^3/uL (0.0-1.1) Eosinophils # (Auto) 0.0 x10^3/uL (0.0-0.7) Basophils # (Auto) 0.0 x10^3/uL (0.0-0.2) Prothrombin Time 15.4 SEC (11.7-14.0) Prothromb Time International Ratio 1.3 (0.8-1.1) Sodium Level 138 mmol/L (136-145) Potassium Level 6.2 mmol/L (3.5-5.1) Chloride Level 98 mmol/L (98-107) Carbon Dioxide Level 28 mmol/L (21-32) Anion Gap 12 (6-14) Blood Urea Nitrogen 23 mg/dL (8-26) Creatinine 2.3 mg/dL (0.7-1.3) Estimated GFR (Cockcroft-Gault) 29.2 BUN/Creatinine Ratio 10 (6-20) Glucose Level 123 mg/dL (70-99) Lactic Acid Level 2.1 mmol/L (0.4-2.0) Calcium Level 8.9 mg/dL (8.5-10.1) Magnesium Level 2.3 mg/dL (1.8-2.4) Total Bilirubin 0.3 mg/dL (0.2-1.0) Aspartate Amino Transf (AST/SGOT) 144 U/L (15-37) Alanine Aminotransferase (ALT/SGPT) 122 U/L (16-63) Alkaline Phosphatase 92 U/L (46-116) Creatine Kinase 494 U/L (39-308) Troponin I Quantitative 0.310 ng/mL (0.000-0.055) PY-[id number]-M-Type Natriuretic Peptide 7488 pg/mL (0-124) Total Protein 7.7 g/dL (6.4-8.2) Albumin 3.3 g/dL (3.4-5.0) Albumin/Globulin Ratio 0.8 (1.0-1.7) Lipase 110 U/L (73-393) Procalcitonin < 0.10 ng/mL (0.00-0.10) Ethyl Alcohol Level < 10 mg/dL (0-10) O2 Saturation 92 % (92-99) Arterial Blood pH 7.20 (7.35-7.45) Arterial Blood pCO2 at Patient Temp 59 mmHg (35-46) Arterial Blood pO2 at Patient Temp 74 mmHg (65-108) Arterial Blood HCO3 22 mmol/L (21-28) Arterial Blood Base Excess -6 mmol/L (-3-3) Oxyhemoglobin 91.7 % Methemoglobin 0.4 % (0.0-1.9) Carbon Monoxide, Quantitative 0.3 % (0.0-1.9) FiO2 60 VTE Prophylaxis Ordered VTE Prophylaxis Devices: Yes VTE Pharmacological Prophylaxi: No Assessment/Plan Assessment/Plan dictated Roseann JAY MD Feb 04, 2019 18:20
[2019-02-04] MEDS ORDERED: PROPOFOL 100 ML IV ONE (18:45)
[2019-02-04] MEDS ORDERED: PROPOFOL 10 MG/ML (100ML) VIAL. IV ONE (19:00)
--- NOTE | 2019-02-04 19:45 | HP ---
ADMIT DATE: 02/04/2019 ADMISSION DIAGNOSIS: Status post code blue. HISTORY OF PRESENT ILLNESS: This is a 58-year-old white male who was at the [facility] getting IV antibiotics after having an epidural abscess develop after lumbar back surgery. He had been in his usual state and improving until a couple days ago when he started having increased pain in his lumbar back with therapy. It is unclear to me at this point if his fentanyl patch dose was increased and if he was started on gabapentin at that time, but it is certainly possible. Last night, he took his Ambien 10 per nursing staff, but did not sleep very well all night. At 5:30 this morning, nurse made sure that he was on his CPAP and he slept for a while then. At 8:00 a.m., he was requesting pain meds and at 9:20 he received his scheduled 30 mg Percocet pill. Around that time, he also received his IV antibiotic doses and was noted to be tired. His vitals were stable and his oxygen saturations were normal at that time. By noon, he was asked to go to PT and OT by therapy, but he declined to go. Around 2:00 p.m. this afternoon, he was noted to be responsive, bit groggy and then a few minutes later when checked on again, he was gasping for air. He was bagged and given a sternal rub and was somewhat responsive with that. EMS was notified and he was transferred to the Emergency Room here at [facility]. He had his fentanyl patch removed there and was given Narcan and was little more alert. He was noted to have some mildly abnormal liver enzymes and elevated creatinine of 2.3 I believe from a baseline of 1 just a few days ago. He had a mild anemia, but that has been chronic. He was noted to be febrile with a temperature of 100. He was noted to have a mildly elevated troponin and an elevated potassium. He was given IV fluids and a dose of sodium bicarbonate and calcium gluconate and he was orally intubated. CT head imaging was negative, but he was started on Keppra load. Propofol was given for sedation and he is admitted into the Intensive Care Unit with acute encephalopathy. PAST MEDICAL HISTORY: Significant for COPD, hypertension, PSVT, degenerative lumbar back disease with a recent epidural abscess for which he was on about his fifth week of 6 weeks of IV antibiotics. Labs at [facility] have shown his sed rate reduced from 73 on 01/10/2019 to 25 on 01/31/2019. He did develop a rather acute onset of some pain in his lumbar back with sciatica. According to the family, he was started on a medication that was either 300 or 600 mg, I suspect it was gabapentin, but I cannot confirm that as of yet. He was also on a fentanyl patch, although at this time of dictation I am unaware of the exact strength or if it was recently increased. MEDICATIONS: His medications to the best of my determination at this point include albuterol nebulized, Zosyn 2 grams IV q. 4 hours for a total of 45 days, azelastine eyedrops each eye daily as needed, Colace 100 mg b.i.d., furosemide 20 mg daily, HCTZ 25 mg daily, lisinopril 10 mg daily, methocarbamol 500 mg q.i.d. p.r.n., metoprolol 25 mg tartrate b.i.d., montelukast sodium 10 mg at bedtime, omeprazole 20 mg daily, oxycodone I believe is 30 mg q. 12 hours, Daliresp 500 mg daily, sertraline 100 mg daily, tamsulosin 0.4 mg at bedtime, topiramate 50 mg b.i.d. I was not able to confirm those medicines with the staff at [facility]. Another list came over with him, but is not currently available to me. SOCIAL HISTORY: He is a former smoker. He is . His is present. He has a history of alcoholism. FAMILY HISTORY: Heart disease, hypertension, diabetes, stomach cancer. PAST SURGICAL HISTORY: Include a colon resection for cancer, history of oral cancer, 3-4 rectal reconstruction surgeries after his colon surgery, excision of mouth tumors x 2, lumbar laminectomy, drainage of lumbar abscess. REVIEW OF SYSTEMS: CONSTITUTIONAL: No recent fever, chills or night sweats. CARDIAC: No chest pain. PULMONARY: He has been using his CPAP and getting his neb treatments, not had any acute respiratory issues. GASTROINTESTINAL: No nausea or vomiting or change in bowels. Appetite has been good, but he has not been going to the dining room as he has usually been busy with family and relatives and he has found a space in short supply and been eating most meals in his room. Family has been bringing in food. They also admit to bringing in some ibuprofen that he had apparently at his bedside and he was taking p.r.n. for his back pain and it was not being given by [facility] staff. MUSCULOSKELETAL: Positive for recent increase in his sciatic pain, presumably from his back, but no falls or no injuries during therapy. PHYSICAL EXAMINATION: VITAL SIGNS: Most recent vitals showed a temperature of 100, pulse of 102, respiratory rate of 14, blood pressure 116/79, pulse ox is low at 74% on room air, currently sedated and intubated. HEENT: Pupils appear smallish and nonreactive. SKIN: Hands look little bit mottled. HEART: Regular rate and rhythm. Possibly some atrial fib showing on his monitor. [place] puffer type chest deformity. ABDOMEN: Obese abdomen with bowel sounds present, too obese to palpate liver or spleen or other masses. EXTREMITIES: Look somewhat mottled in his hands and somewhat cool feeling in his feet. Some venous stasis changes are present in his legs. NEUROLOGIC: He is sedated. LABORATORY DATA: White count 11.6, hemoglobin 11.3, nonspecific differential, normal platelets 471. Chemistries: Sodium 138, potassium 6.2 which is a significant change from 4 days ago, chloride 98, CO2 of 28, anion gap 12, BUN is 23, creatinine is 2.3 which is a significant change from 4 days ago of 1.0. Glucose 123. Lactic acid is elevated at 2.1. His calcium is normal. Magnesium is normal. AST is elevated at 144, ALT is 122. Alkaline phosphatase is 92, creatinine kinase is 494, but his CK-MB is normal. Troponins high at 0.310. ProBNP is elevated at 7488, total protein 7.7, albumin is 3.3. Blood gas shows a pH of 7.20, pCO2 of 59, base excess of negative 6 on 60% FIO2, O2 saturation at 92%. INR is 1.3. PT is elevated at 15.4. Alcohol level is negative. IMAGING: Chest x-ray, satisfactory tube position. No acute infiltrates. Heart is difficult to assess due to the AP technique as far as size. There is some calcific plaquing of the aorta, minimal linear atelectasis in the right. Head CT, no acute evidence of intracranial hemorrhage or mass effect. ASSESSMENT: 1. Status post code blue. 2. Acute respiratory failure with what appears to be hypoxemic encephalopathy. 3. Chronic obstructive pulmonary disease. 4. Morbid obesity. 5. Acute renal failure. 6. Chronic anemia. 7. Lumbar degenerative disk disease with epidural abscess, status post laminectomy. PLAN: He has been intubated, stabilized, sedated. Neurology has been consulted as has the other specialists. He is being admitted into the intensive care unit. Family is present including , sister and son. I have spoken with all of them and they are aware of current situation and agreed with the current plan. W Jose L JAY MD DR: LELIA/philip JOB#: [id number] / [id number]
[2019-02-04] MEDS: MIDAZOLAM 100mg/100ml NS BAG 100 ML IV PRN (20:12)
[2019-02-04 20:15] LABS: BASE EXCESS ABG -5 mmol/L (-3-3); CORRECTED PCO2 ABG 44 mmHg; HCO3 ABG 21 mmol/L (21-28); SAT O2 ABG 96 % (92-99)
[2019-02-04 20:16] LABS: FIO2 ABG 70; PCO2 ABG 43 mmHg (35-46); PO2 ABG 91 mmHg (65-108)
[2019-02-04 20:17] LABS: CORRECTED PO2 ABG 95 mmHg
[2019-02-04] MEDS: HEPARIN 25,000UTS/500ML PREMIX 500 ML IV PRN (23:26)
[2019-02-05] VITALS (24 sets, daily range): BP systolic 87–155; BP diastolic 51–91
[2019-02-05] MEDS: ANTI-COAG MONITOR BY PHARMACY. MC PRN (01:26)
[2019-02-05] MEDS: MIDAZOLAM 100mg/100ml NS BAG 100 ML IV PRN ×2 (04:21→16:16)
[2019-02-05 04:58] LABS: BASE EXCESS ABG -5 mmol/L (-3-3); HCO3 ABG 20 mmol/L (21-28); PCO2 ABG 37 mmHg (35-46); PO2 ABG 67 mmHg (65-108); SAT O2 ABG 91 % (92-99)
[2019-02-05 05:16] LABS: FIO2 ABG 50
[2019-02-05 05:33] LABS: HEMATOCRIT 32.6 % (39.0-53.0); HEMOGLOBIN 10.8 g/dL (13.0-17.5); RED BLOOD COUNT 3.46 x10^6/uL (4.30-5.70); RED CELL DISTRIBUTION WIDTH 14.3 % (11.5-14.5); WHITE BLOOD COUNT 8.8 x10^3/uL (4.0-11.0)
[2019-02-05] MEDS: PIPERACILLIN/TAZOBACTAM 3.375 GM in IV NORMAL SALINE 50ML 50 ML IV SCH ×4 (05:45→23:20)
--- NOTE | 2019-02-05 06:21 | PDOC ---
Provider Note Provider Note [id number] acute resp fail jose nstemi afib see orders CLAUDIO SESAY MD Feb 05, 2019 06:21
--- NOTE | 2019-02-05 07:05 | CONS ---
DATE OF CONSULTATION: REASON FOR CONSULTATION: I was asked to see this 58-year-old gentleman for acute respiratory failure. HISTORY OF PRESENT ILLNESS: The patient is currently on the ventilator and he is sedated. He is on fentanyl and Versed drip. All of the information was obtained from chart, nursing staff. The patient had back surgery on 12/09/2018, developed epidural abscess, status post I and D on December 30. He was on antibiotic at [facility]. Apparently, he had altered mental status. Details are not known, but he had an Ambien and his fentanyl patch dose increased. He was brought to emergency room via EMS. He was found to be in a-fib with rapid ventricular response. He has history of atrial fibrillation, unknown if he was on any anticoagulation. He is currently on the ventilator. He does have moderate amount of ET tube secretion. He was on Levophed, now is off. He is on IV fluid, heparin drip, Versed and fentanyl drip. PAST MEDICAL HISTORY: COPD, back surgery, epidural abscess as mentioned as above, CHF, atrial fibrillation, obstructive sleep apnea-hypopnea syndrome. MEDICATIONS: Currently, he is on Versed and fentanyl drip, heparin drip. ALLERGIES: No known drug allergies. SOCIAL HISTORY: Positive for smoking. Details are not known. FAMILY HISTORY: Hypertension per chart. REVIEW OF SYSTEMS: As mentioned as above. I have discussed the patient with RN, other systems otherwise negative. PHYSICAL EXAMINATION: GENERAL: This is an obese gentleman on the ventilator. He is sedated. VITAL SIGNS: His O2 saturation is 98%, respiratory rate 22, heart rate 82, blood pressure 97/67, temperature 99.3, maximum temperature 100.2. HEENT: Normocephalic, atraumatic. Pupils equal, round, reactive to light. He is orally intubated. Nose is clear. NECK: Short and thick. No lymphadenopathy or thyromegaly. CARDIOVASCULAR: Irregular rhythm. CHEST: Inspection is normal. LUNGS: There are bibasilar crackles, dullness at the bases. ABDOMEN: Soft and obese. Bowel sounds are good. There is no mass. EXTREMITIES: There is no edema. LYMPHATICS: There is no lymphadenopathy. NEUROLOGIC: He is on the ventilator, sedated. SKIN: Chronic changes. LABORATORY DATA: I reviewed the following lab data: Chest x-ray shows ET tube is in good position. There is bibasilar atelectasis. WBC on admission 11.6, hemoglobin 11.3, platelets 475. Sodium 138, potassium 6.2, chloride 98, CO2 28, glucose 123, BUN 23, creatinine 2.3. His previous creatinine was 1.0 on January 31. Troponin 2.5, BNP 7488, procalcitonin less than 0.1. ABG this morning, pH 7.35, pCO2 of 37, pO2 of 67 on assist control, rate of 22, tidal volume 600, PEEP of 5, FiO2 50%. IMPRESSION: 1. Acute respiratory failure, multifactorial in etiology. 2. Abnormal chest x-ray. 3. Acute kidney injury. Electrolyte abnormality. 4. Elevated troponin, non-ST elevation myocardial infarction. 5. Atrial fibrillation with rapid ventricular response, now rate controlled. 6. Hyperkalemia. 7. Status post back surgery, epidural abscess, incision and drainage, on antibiotic. 8. Chronic obstructive pulmonary disease. 9. Acute diastolic congestive heart failure. 10. ? sepsis. 11. Obstructive sleep apnea-hypopnea syndrome. PLAN AND RECOMMENDATIONS: 1. Titrate FiO2 to keep O2 saturation 94%. 2. Continue ventilator support until he is more stable. I will change vent setting to assist control, rate of 25, tidal volume 500. We will do ABG in 1 hour. 3. Start bronchodilator. 4. Start inhaled corticosteroid. 5. Add Pepcid for stress ulcer prophylaxis. 6. Repeat BMP. Monitor potassium and creatinine. 7. Sputum culture. 8. I do recommend ID consultation. 9. I do recommend Cardiology consultation. 10. Monitor respiratory status very closely. 11. A.m. ABG and portable chest x-ray. 12. He is on heparin drip per cardiology. Monitor for bleeding. The findings and recommendations were discussed with RN. Thank you very much for allowing me to participate in care of this very nice gentleman. The patient is critically ill. CRITICAL CARE TIME: 30 minutes without overlap. CLAUDIO SESAY M.D. DR: SUSAN/philip JOB#: [id number] / [id number] NATHALIE
[2019-02-05] MEDS: IV NORMAL SALINE 1000ML BAG 1,000 ML IV SCH ×3 (07:12→23:19)
[2019-02-05] MEDS: HEPARIN for IV BOLUS 10,000 UNIT/10 ML VIAL. IV PRN ×2 (07:22→22:31)
--- NOTE | 2019-02-05 07:37 | RAD ---
Supine abdomen. HISTORY: OG tube placement Supine view was taken of the abdomen. There is opacification right hemithorax. Left lung is clear. The oral gastric tube is coiled in the fundus of the stomach. Bowel pattern of the upper abdomen is unremarkable. IMPRESSION: 1. Gastric tube in the stomach. Electronically signed by: Fer Burnett MD (02/05/2019 7:34 AM) [facility]
[2019-02-05 07:47] LABS: ALBUMIN 2.7 g/dL (3.4-5.0); ALBUMIN/GLOBULIN RATIO 0.9 (1.0-1.7); CALCIUM 8.3 mg/dL (8.5-10.1); CREATININE 2.2 mg/dL (0.7-1.3); GFR 30.7; POTASSIUM 4.8 mmol/L (3.5-5.1); TOTAL BILIRUBIN 0.2 mg/dL (0.2-1.0); TOTAL PROTEIN 5.7 g/dL (6.4-8.2)
--- NOTE | 2019-02-05 08:35 | PDOC ---
PROGRESS NOTES Subjective Subjective Patient intubated and sedated. Objective Objective Vital Signs Date Time Temp Pulse Resp B/P (MAP) Pulse Ox O2 Delivery O2 Flow Rate FiO2 02/05/19 08:00 98 25 107/73 (84) 92 Ventilator 02/05/19 07:00 99.2 99.2 02/04/19 14:51 15.0 Intake and Output 02/05/19 06:59 Intake Total 3981.2 ml Output Total 450 ml Balance 3531.2 ml Intake IV Total 3981.2 ml Output Urine Total 450 ml Physical Exam Abdomen: Normal bowel sounds Heart: Other (irregular) Extremities: No edema General: Other (sedated) Lungs: Clear to auscultation Assessment Assessment Problems Medical Problems: (1) Altered mental status Status: Acute (2) Elevated LFTs Status: Acute (3) Hyperkalemia Status: Acute Acute respiratory failure Hypoxic encephalopathy respiratory acidosis Hyperkalemia S/P Code Acute diastolic CHF ARF NSTEMI AFIB S/P back surgery with epidural abscess with prolonged IV antibx COPD ADILENE Morbid Obesity Plan Plan of Care Continue supportive care Decrease sedation and proceed with neuro eval when appropriate Hydrate Continue home service consultant care Comment Review of Relevant I have reviewed the following items valerie (where applicable) has been applied. Labs Laboratory Tests Test 02/04/19 14:55 02/04/19 15:50 02/04/19 19:45 02/04/19 19:58 White Blood Count 11.6 x10^3/uL (4.0-11.0) Red Blood Count 3.68 x10^6/uL (4.30-5.70) Hemoglobin 11.3 g/dL (13.0-17.5) Hematocrit 35.6 % (39.0-53.0) Mean Corpuscular Volume 97 fL (79-100) Mean Corpuscular Hemoglobin 31 pg (25-35) Mean Corpuscular Hemoglobin Concent 32 g/dL (31-37) Red Cell Distribution Width 14.7 % (11.5-14.5) Platelet Count 471 x10^3/uL (140-400) Neutrophils (%) (Auto) 84 % (31-73) Lymphocytes (%) (Auto) 5 % (24-48) Monocytes (%) (Auto) 11 % (0-9) Eosinophils (%) (Auto) 0 % (0-3) Basophils (%) (Auto) 0 % (0-3) Neutrophils # (Auto) 9.7 x10^3uL (1.8-7.7) Lymphocytes # (Auto) 0.6 x10^3/uL (1.0-4.8) Monocytes # (Auto) 1.3 x10^3/uL (0.0-1.1) Eosinophils # (Auto) 0.0 x10^3/uL (0.0-0.7) Basophils # (Auto) 0.0 x10^3/uL (0.0-0.2) Prothrombin Time 15.4 SEC (11.7-14.0) Prothromb Time International Ratio 1.3 (0.8-1.1) Sodium Level 138 mmol/L (136-145) Potassium Level 6.2 mmol/L (3.5-5.1) Chloride Level 98 mmol/L (98-107) Carbon Dioxide Level 28 mmol/L (21-32) Anion Gap 12 (6-14) Blood Urea Nitrogen 23 mg/dL (8-26) Creatinine 2.3 mg/dL (0.7-1.3) Estimated GFR (Cockcroft-Gault) 29.2 BUN/Creatinine Ratio 10 (6-20) Glucose Level 123 mg/dL (70-99) Lactic Acid Level 2.1 mmol/L (0.4-2.0) 2.0 mmol/L (0.4-2.0) Calcium Level 8.9 mg/dL (8.5-10.1) Magnesium Level 2.3 mg/dL (1.8-2.4) Total Bilirubin 0.3 mg/dL (0.2-1.0) Aspartate Amino Transf (AST/SGOT) 144 U/L (15-37) Alanine Aminotransferase (ALT/SGPT) 122 U/L (16-63) Alkaline Phosphatase 92 U/L (46-116) Creatine Kinase 494 U/L (39-308) Troponin I Quantitative 0.310 ng/mL (0.000-0.055) 1.312 ng/mL (0.000-0.055) OA-Phb-K-Type Natriuretic Peptide 7488 pg/mL (0-124) Total Protein 7.7 g/dL (6.4-8.2) Albumin 3.3 g/dL (3.4-5.0) Albumin/Globulin Ratio 0.8 (1.0-1.7) Lipase 110 U/L (73-393) Procalcitonin < 0.10 ng/mL (0.00-0.10) Ethyl Alcohol Level < 10 mg/dL (0-10) O2 Saturation 92 % (92-99) 96 % (92-99) Arterial Blood pH 7.20 (7.35-7.45) 7.31 (7.35-7.45) Arterial Blood pCO2 at Patient Temp 59 mmHg (35-46) 43 mmHg (35-46) Arterial Blood pO2 at Patient Temp 74 mmHg (65-108) 91 mmHg (65-108) Arterial Blood HCO3 22 mmol/L (21-28) 21 mmol/L (21-28) Arterial Blood Base Excess -6 mmol/L (-3-3) -5 mmol/L (-3-3) Oxyhemoglobin 91.7 % Methemoglobin 0.4 % (0.0-1.9) Carbon Monoxide, Quantitative 0.3 % (0.0-1.9) FiO2 60 70 Arterial Blood pH (Temp corrected) 7.30 Arterial Blood pCO2 (Temp correct) 44 mmHg Arterial Blood pO2 (Temp corrected) 95 mmHg Test 02/04/19 22:30 02/05/19 04:55 02/05/19 05:00 Troponin I Quantitative 2.514 ng/mL (0.000-0.055) O2 Saturation 91 % (92-99) Arterial Blood pH 7.35 (7.35-7.45) Arterial Blood pCO2 at Patient Temp 37 mmHg (35-46) Arterial Blood pO2 at Patient Temp 67 mmHg (65-108) Arterial Blood HCO3 20 mmol/L (21-28) Arterial Blood Base Excess -5 mmol/L (-3-3) FiO2 50 White Blood Count 8.8 x10^3/uL (4.0-11.0) Red Blood Count 3.46 x10^6/uL (4.30-5.70) Hemoglobin 10.8 g/dL (13.0-17.5) Hematocrit 32.6 % (39.0-53.0) Mean Corpuscular Volume 94 fL (79-100) Mean Corpuscular Hemoglobin 31 pg (25-35) Mean Corpuscular Hemoglobin Concent 33 g/dL (31-37) Red Cell Distribution Width 14.3 % (11.5-14.5) Platelet Count 309 x10^3/uL (140-400) Heparin Anti-Xa Act, Unfractionated < 0.10 IU/mL (0.30-0.70) Laboratory Tests Test 02/04/19 14:55 02/04/19 15:50 02/04/19 19:45 02/04/19 19:58 White Blood Count 11.6 x10^3/uL (4.0-11.0) Red Blood Count 3.68 x10^6/uL (4.30-5.70) Hemoglobin 11.3 g/dL (13.0-17.5) Hematocrit 35.6 % (39.0-53.0) Mean Corpuscular Volume 97 fL (79-100) Mean Corpuscular Hemoglobin 31 pg (25-35) Mean Corpuscular Hemoglobin Concent 32 g/dL (31-37) Red Cell Distribution Width 14.7 % (11.5-14.5) Platelet Count 471 x10^3/uL (140-400) Neutrophils (%) (Auto) 84 % (31-73) Lymphocytes (%) (Auto) 5 % (24-48) Monocytes (%) (Auto) 11 % (0-9) Eosinophils (%) (Auto) 0 % (0-3) Basophils (%) (Auto) 0 % (0-3) Neutrophils # (Auto) 9.7 x10^3uL (1.8-7.7) Lymphocytes # (Auto) 0.6 x10^3/uL (1.0-4.8) Monocytes # (Auto) 1.3 x10^3/uL (0.0-1.1) Eosinophils # (Auto) 0.0 x10^3/uL (0.0-0.7) Basophils # (Auto) 0.0 x10^3/uL (0.0-0.2) Prothrombin Time 15.4 SEC (11.7-14.0) Prothromb Time International Ratio 1.3 (0.8-1.1) Sodium Level 138 mmol/L (136-145) Potassium Level 6.2 mmol/L (3.5-5.1) Chloride Level 98 mmol/L (98-107) Carbon Dioxide Level 28 mmol/L (21-32) Anion Gap 12 (6-14) Blood Urea Nitrogen 23 mg/dL (8-26) Creatinine 2.3 mg/dL (0.7-1.3) Estimated GFR (Cockcroft-Gault) 29.2 BUN/Creatinine Ratio 10 (6-20) Glucose Level 123 mg/dL (70-99) Lactic Acid Level 2.1 mmol/L (0.4-2.0) 2.0 mmol/L (0.4-2.0) Calcium Level 8.9 mg/dL (8.5-10.1) Magnesium Level 2.3 mg/dL (1.8-2.4) Total Bilirubin 0.3 mg/dL (0.2-1.0) Aspartate Amino Transf (AST/SGOT) 144 U/L (15-37) Alanine Aminotransferase (ALT/SGPT) 122 U/L (16-63) Alkaline Phosphatase 92 U/L (46-116) Creatine Kinase 494 U/L (39-308) Troponin I Quantitative 0.310 ng/mL (0.000-0.055) 1.312 ng/mL (0.000-0.055) OY-Tfo-J-Type Natriuretic Peptide 7488 pg/mL (0-124) Total Protein 7.7 g/dL (6.4-8.2) Albumin 3.3 g/dL (3.4-5.0) Albumin/Globulin Ratio 0.8 (1.0-1.7) Lipase 110 U/L (73-393) Procalcitonin < 0.10 ng/mL (0.00-0.10) Ethyl Alcohol Level < 10 mg/dL (0-10) O2 Saturation 92 % (92-99) 96 % (92-99) Arterial Blood pH 7.20 (7.35-7.45) 7.31 (7.35-7.45) Arterial Blood pCO2 at Patient Temp 59 mmHg (35-46) 43 mmHg (35-46) Arterial Blood pO2 at Patient Temp 74 mmHg (65-108) 91 mmHg (65-108) Arterial Blood HCO3 22 mmol/L (21-28) 21 mmol/L (21-28) Arterial Blood Base Excess -6 mmol/L (-3-3) -5 mmol/L (-3-3) Oxyhemoglobin 91.7 % Methemoglobin 0.4 % (0.0-1.9) Carbon Monoxide, Quantitative 0.3 % (0.0-1.9) FiO2 60 70 Arterial Blood pH (Temp corrected) 7.30 Arterial Blood pCO2 (Temp correct) 44 mmHg Arterial Blood pO2 (Temp corrected) 95 mmHg Test 02/04/19 22:30 02/05/19 04:55 02/05/19 05:00 Troponin I Quantitative 2.514 ng/mL (0.000-0.055) O2 Saturation 91 % (92-99) Arterial Blood pH 7.35 (7.35-7.45) Arterial Blood pCO2 at Patient Temp 37 mmHg (35-46) Arterial Blood pO2 at Patient Temp 67 mmHg (65-108) Arterial Blood HCO3 20 mmol/L (21-28) Arterial Blood Base Excess -5 mmol/L (-3-3) FiO2 50 White Blood Count 8.8 x10^3/uL (4.0-11.0) Red Blood Count 3.46 x10^6/uL (4.30-5.70) Hemoglobin 10.8 g/dL (13.0-17.5) Hematocrit 32.6 % (39.0-53.0) Mean Corpuscular Volume 94 fL (79-100) Mean Corpuscular Hemoglobin 31 pg (25-35) Mean Corpuscular Hemoglobin Concent 33 g/dL (31-37) Red Cell Distribution Width 14.3 % (11.5-14.5) Platelet Count 309 x10^3/uL (140-400) Heparin Anti-Xa Act, Unfractionated < 0.10 IU/mL (0.30-0.70) Medications Current Medications Sodium Chloride 1,000 ml @ 1,000 mls/hr 1X ONCE IV Last administered on at 15:03; Start 02/04/19 at 15:15; Stop 02/04/19 at 16:14; Status DC Midazolam HCl (Versed) 2 mg 1X ONCE IV Last administered on 02/04/19at 15:05; Start 02/04/19 at 15:15; Stop 02/04/19 at 15:16; Status DC Piperacillin Sod/ Tazobactam Sod (Zosyn Per Pharmacy) 1 each PRN DAILY PRN MC SEE COMMENTS; Start 02/04/19 at 15:15 Fentanyl Citrate (Fentanyl 2ml Vial) 50 mcg 1X ONCE IV ; Start 02/04/19 at 15: 15; Stop 02/04/19 at 15:16; Status DC Piperacillin Sod/ Tazobactam Sod 4.5 gm/Sodium Chloride 100 ml @ 200 mls/hr 1X ONCE IV Last administered on 02/04/19at 15:33; Start 02/04/19 at 16:00; Stop 02/04/19 at 16:29; Status DC Etomidate (Amidate) 20 mg STK-MED ONCE IV ; Start 02/04/19 at 15:22; Stop at 15:23; Status DC Naloxone HCl (Narcan) 2 mg STK-MED ONCE .ROUTE ; Start 02/04/19 at 15:22; Stop 02/04/19 at 15:23; Status DC Rocuronium [place] (Zemuron) 50 mg STK-MED ONCE .ROUTE ; Start 02/04/19 at 15:23 ; Stop 02/04/19 at 15:24; Status DC Propofol (Diprivan) 200 mg 1X ONCE IV Last administered on 02/04/19at 16:10; Start 02/04/19 at 15:45; Stop 02/04/19 at 15:46; Status DC Sodium Chloride 1,000 ml @ 1,000 mls/hr 1X ONCE IV Last administered on at 16:05; Start 02/04/19 at 16:00; Stop 02/04/19 at 16:59; Status DC Aspirin (Aspirin) 300 mg 1X STAT [place] Last administered on 02/04/19at 17:11; Start 02/04/19 at 15:52; Stop 02/04/19 at 15:55; Status DC Sodium Bicarbonate (Sodium Bicarb Adult 8.4% Syr) 50 meq 1X ONCE IV Last administered on 02/04/19at 17:11; Start 02/04/19 at 16:00; Stop 02/04/19 at 16:01 ; Status DC Levetiracetam 1000 mg/Dextrose 110 ml @ 440 mls/hr 1X ONCE IV Last administered on 02/04/19at 16:54; Start 02/04/19 at 16:00; Stop 02/04/19 at 16:14 ; Status DC Calcium Gluconate (Calcium Gluconate) 1,000 mg 1X ONCE IVP Last administered on 02/04/19at 17:01; Start 02/04/19 at 16:00; Stop 02/04/19 at 16:01; Status DC Propofol 50 ml @ As Directed STK-MED ONCE IV ; Start 02/04/19 at 16:05; Stop at 16:06; Status DC Sodium Chloride 1,000 ml @ 125 mls/hr Q8H IV Last administered on 02/05/19at 07 :12; Start 02/04/19 at 16:09; Stop 02/05/19 at 16:08 Piperacillin Sod/ Tazobactam Sod 3.375 gm/Sodium Chloride 50 ml @ 100 mls/hr Q6HRS IV Last administered on 02/05/19at 05:45; Start 02/05/19 at 00:00 Etomidate (Amidate) 20 mg 1X ONCE IV Last administered on 02/04/19at 15:00; Start 02/04/19 at 16:45; Stop 02/04/19 at 16:46; Status DC Rocuronium [place] (Zemuron) 100 mg 1X ONCE IV Last administered on 02/04/19at 15:00; Start 02/04/19 at 16:45; Stop 02/04/19 at 16:46; Status DC Naloxone HCl (Narcan) 2 mg 1X ONCE IV Last administered on 02/04/19at 14:57; Start 02/04/19 at 16:45; Stop 02/04/19 at 16:46; Status DC Norepinephrine Bitartrate 250 ml @ 1.875 mls/ hr CONT PRN IV SEE I/O RECORD; Start 02/04/19 at 17:30 Dopamine HCl/ Dextrose 250 ml @ As Directed STK-MED ONCE IV ; Start 02/04/19 at 17:25; Stop 02/04/19 at 17:26; Status DC Fentanyl Citrate (Fentanyl 2ml Vial) 50 mcg 1X ONCE IV ; Start 02/04/19 at 17: 45; Stop 02/04/19 at 17:46; Status DC Midazolam HCl (Versed) 2 mg 1X ONCE IV ; Start 02/04/19 at 17:45; Stop at 17:46; Status DC Propofol 100 ml @ As Directed STK-MED ONCE IV ; Start 02/04/19 at 18:45; Stop 02/04/19 at 18:46; Status DC Propofol 100 ml @ 1.905 mls/ hr CONT PRN IV SEE I/O RECORD; Start 02/04/19 at 18:45 Fentanyl Citrate 30 ml @ 0 mls/hr CONT PRN IV SEE PROTOCOL Last administered on 02/05/19at 04:53; Start 02/04/19 at 19:45 Midazolam HCl 100 ml @ 0 mls/hr CONT PRN IV SEE PROTOCOL Last administered on at 04:21; Start 02/04/19 at 19:45 Heparin Sodium/ Dextrose 500 ml @ 0 mls/hr CONT PRN IV SEE I/O RECORD Last administered on 02/04/19at 23:26; Start 02/04/19 at 22:45 Info (Anti-Coagulation Monitoring By Pharmacy) 1 each PRN DAILY PRN MC SEE COMMENTS Last administered on 02/05/19at 01:26; Start 02/04/19 at 22:45 Heparin Sodium (Porcine) (Heparin Sodium) 3,250 unit PRN Q6HRS PRN IV FOR UFH LEVEL LESS THAN 0.2 Last administered on 02/05/19at 07:22; Start 02/05/19 at 01: 30 Albuterol/ Ipratropium (Duoneb) 3 ml RTQID NEB ; Start 02/05/19 at 08:00 Budesonide (Pulmicort) 0.5 mg RTBID NEB ; Start 02/05/19 at 08:00 Famotidine (Pepcid Vial) 20 mg QHS IVP ; Start 02/05/19 at 21:00 Active Scripts Active Unasyn 3 Gm Vial (Ampicillin Sodium/Sulbactam Na) 3 Gm Vial 2 Gm IV Q4HRS 45 Days Oxycodone Hcl Immed.release (Oxycodone Hcl) 5 Mg Tablet 10 Mg PO PRN Q4HRS PRN Oxycontin (Oxycodone HCl) 15 Mg Tab.er.12h 15 Mg PO Q12HR Colace (Docusate Sodium) 100 Mg Capsule 100 Mg PO BID 30 Days Metoprolol Tartrate 25 Mg Tablet 25 Mg PO BID Reported Hydrochlorothiazide Capsule (Hydrochlorothiazide) 12.5 Mg Capsule 25 Mg PO DAILY Proair Hfa Inhaler (Albuterol Sulfate) 8.5 Gm Hfa.aer.ad 2 Puff INH PRN Q6HRS PRN Albuterol Sulfate Neb Soln (Albuterol Sulfate) 2.5 Mg/3 Ml Vial.neb 2.5 Mg NEB PRN Q4-6HRS PRN Ipratropium [place] 0.2 Mg/1 Ml Solution 0.2 Mg IH PRN Q4-6HRS PRN Zoloft (Sertraline Hcl) 100 Mg Tablet 1 Tab PO DAILY Robaxin (Methocarbamol) 500 Mg Tablet 500 Mg PO QID PRN Azelastine Hcl 6 Ml Drops 1 Drop EACHEYE PRN DAILY PRN Lisinopril 10 Mg Tablet 10 Mg PO DAILY Lasix (Furosemide) 20 Mg Tablet 20 Mg PO DAILY Tamsulosin Hcl 0.4 Mg Cap.er.24h 0.4 Mg PO DAILY Montelukast Sodium Tablet (Montelukast Sodium) 10 Mg Tablet 10 Mg PO HS Omeprazole 20 Mg Capsule.dr 20 Mg PO DAILY Topiramate 50 Mg Tablet 1 Tab PO BID Daliresp (Roflumilast) 500 Mcg Tablet 500 Mcg PO DAILY Vitals/I & O Vital Sign - Last 24 Hours 02/04/19 02/04/19 02/04/19 02/04/19 14:51 15:00 15:07 15:10 Temp 100.0 100.0 Pulse 102 128 130 Resp 14 18 B/P (MAP) 116/79 (91) Pulse Ox 88 74 100 O2 Delivery Bag Valve Mask Ventilator O2 Flow Rate 15.0 02/04/19 02/04/19 02/04/19 02/04/19 15:38 15:53 16:03 16:03 Pulse 118 100 112 Resp 17 18 21 Pulse Ox 100 95 O2 Delivery Ventilator 02/04/19 02/04/19 02/04/19 02/04/19 16:18 16:28 16:33 16:38 Pulse 102 108 100 106 Resp 22 02/04/19 02/04/19 02/04/19 02/04/19 16:43 16:53 17:01 17:03 Pulse 106 102 120 Resp 12 15 Pulse Ox 100 O2 Delivery Ventilator 3/15/19 3/15/19 3/15/19 3/15/19 17:08 17:13 17:18 17:22 Pulse 100 98 98 96 Resp 17 02/04/19 02/04/19 02/04/19 02/04/19 17:28 17:31 18:15 18:30 Temp 100.0 100.0 Pulse 80 114 102 106 Resp 21 22 B/P (MAP) 119/70 (86) 80/59 (66) Pulse Ox 96 99 O2 Delivery Ventilator Ventilator 02/04/19 02/04/19 02/04/19 02/04/19 18:45 19:00 19:15 19:30 Pulse 100 100 100 94 Resp 22 22 B/P (MAP) 87/59 (68) 87/59 (68) 87/71 (76) 108/77 (87) Pulse Ox 98 98 98 98 O2 Delivery Ventilator Ventilator Ventilator Ventilator 02/04/19 02/04/19 02/04/19 02/04/19 20:00 20:00 20:06 21:00 Temp 99.4 99.4 Pulse 96 96 Resp 22 B/P (MAP) 113/85 (94) 124/82 (96) Pulse Ox 98 98 98 O2 Delivery Ventilator Mechanical Ventilator Ventilator Ventilator 02/04/19 02/04/19 02/04/19 02/04/19 22:00 23:00 23:59 23:59 Temp 99.4 99.4 Pulse 100 88 100 Resp 22 B/P (MAP) 116/78 (91) 101/55 (70) 106/58 (74) Pulse Ox 100 100 98 O2 Delivery Ventilator Ventilator Mechanical Ventilator Ventilator 02/05/19 02/05/19 02/05/19 02/05/19 01:00 02:00 03:00 03:15 Pulse 90 88 94 Resp 22 B/P (MAP) 110/74 (86) 109/76 (87) 98/71 (80) Pulse Ox 100 100 97 100 O2 Delivery Ventilator Ventilator Ventilator Ventilator 02/05/19 02/05/19 02/05/19 02/05/19 04:00 04:00 04:53 05:00 Temp 100.2 99.3 100.2 99.3 Pulse 82 82 Resp 22 B/P (MAP) 95/75 (82) 87/67 (74) Pulse Ox 100 99 96 O2 Delivery Ventilator Mechanical Ventilator Ventilator Ventilator 02/05/19 02/05/19 02/05/19 02/05/19 05:09 05:23 06:00 07:00 Temp 99.2 99.2 Pulse 86 91 Resp 22 22 25 B/P (MAP) 102/75 (84) 93/62 (72) Pulse Ox 98 98 96 95 O2 Delivery Ventilator Ventilator Ventilator Ventilator 02/05/19 02/05/19 07:45 08:00 Pulse 98 Resp 25 B/P (MAP) 107/73 (84) Pulse Ox 92 O2 Delivery Mechanical Ventilator Ventilator Intake and Output 02/04/19 02/04/19 02/05/19 14:59 22:59 06:59 Intake Total 2250 ml 1731.2 ml Output Total 145 ml 305 ml Balance 2105 ml 1426.2 ml MICHELLE GRAJEDA MD Feb 05, 2019 08:35
[2019-02-05] MEDS: IPRATRPIUM/ALBUTEROL 0.5/2.5MG 3 ML NEBU. NEB SCH ×4 (08:55→19:48)
--- NOTE | 2019-02-05 09:18 | PDOC2 ---
CARDIOLOGY CONSULT NOTE CHEIF COMPLAINT: Confusion/mental status changes HPI: 58 y.o man admitted to the hospital with resp failure. He was a PP getting abx. Well known to us. Please see prior consult notes. Etiology of resp failure unclear. W/u pending. Cardiology asked to see him due to elevated troponin. No history of recent chest pain. Chronic dyspnea. Known diastolic HF. PMHX: AFIB - persistent HTN Obesity Diastolic HF SOCHX: No alcohol, tob or illicits FAMHX: NC CURRENT MEDS: Current Medications Medications (Trade) Dose Ordered Sig/Sheryl Start Time Stop Time Status Last Admin Dose Admin Albuterol/ Ipratropium (Duoneb) 3 ml RTQID 02/05/19 08:00 02/05/19 08:55 3 ML Aspirin (Aspirin) 300 mg 1X STAT 02/04/19 15:52 02/04/19 15:55 DC 02/04/19 17:11 300 MG Budesonide (Pulmicort) 0.5 mg RTBID 02/05/19 08:00 Calcium Gluconate (Calcium Gluconate) 1,000 mg 1X ONCE 02/04/19 16:00 02/04/19 16:01 DC 02/04/19 17:01 1,000 MG Dopamine HCl/ Dextrose 250 ml @ As Directed STK-MED ONCE 02/04/19 17:25 02/04/19 17:26 DC Etomidate (Amidate) 20 mg 1X ONCE 02/04/19 16:45 02/04/19 16:46 DC 02/04/19 15:00 20 MG Famotidine (Pepcid Vial) 20 mg QHS 02/05/19 21:00 Fentanyl Citrate 30 ml @ 0 mls/hr CONT PRN 02/04/19 19:45 02/05/19 04:53 2.5 MLS/HR Fentanyl Citrate (Fentanyl 2ml Vial) 50 mcg 1X ONCE 02/04/19 17:45 02/04/19 17:46 DC Heparin Sodium (Porcine) (Heparin Sodium) 3,250 unit PRN Q6HRS PRN 02/05/19 01:30 02/05/19 07:22 3,250 UNIT Heparin Sodium/ Dextrose 500 ml @ 0 mls/hr CONT PRN 02/04/19 22:45 02/04/19 23:26 30.6 MLS/HR Info (Anti-Coagulation Monitoring By Pharmacy) 1 each PRN DAILY PRN 02/04/19 22:45 02/05/19 01:26 1 EACH Levetiracetam 1000 mg/Dextrose 110 ml @ 440 mls/hr 1X ONCE 02/04/19 16:00 02/04/19 16:14 DC 02/04/19 16:54 440 MLS/HR Midazolam HCl 100 ml @ 0 mls/hr CONT PRN 02/04/19 19:45 02/05/19 04:21 1 MLS/HR Midazolam HCl (Versed) 2 mg 1X ONCE 02/04/19 17:45 02/04/19 17:46 DC Naloxone HCl (Narcan) 2 mg 1X ONCE 02/04/19 16:45 02/04/19 16:46 DC 02/04/19 14:57 2 MG Norepinephrine Bitartrate 250 ml @ 1.875 mls/ hr CONT PRN 02/04/19 17:30 Piperacillin Sod/ Tazobactam Sod (Zosyn Per Pharmacy) 1 each PRN DAILY PRN 02/04/19 15:15 Piperacillin Sod/ Tazobactam Sod 3.375 gm/Sodium Chloride 50 ml @ 100 mls/hr Q6HRS 02/05/19 00:00 02/05/19 05:45 100 MLS/HR Piperacillin Sod/ Tazobactam Sod 4.5 gm/Sodium Chloride 100 ml @ 200 mls/hr 1X ONCE 02/04/19 16:00 02/04/19 16:29 DC 02/04/19 15:33 200 MLS/HR Propofol 100 ml @ 1.905 mls/ hr CONT PRN 02/04/19 18:45 Propofol (Diprivan) 200 mg 1X ONCE 02/04/19 15:45 02/04/19 15:46 DC 02/04/19 16:10 200 MG Rocuronium [place] (Zemuron) 100 mg 1X ONCE 02/04/19 16:45 02/04/19 16:46 DC 02/04/19 15:00 100 MG Sodium Bicarbonate (Sodium Bicarb Adult 8.4% Syr) 50 meq 1X ONCE 02/04/19 16:00 02/04/19 16:01 DC 02/04/19 17:11 50 MEQ Sodium Chloride 1,000 ml @ 125 mls/hr Q8H 3/15/19 16:09 02/05/19 16:08 02/05/19 07:12 125 MLS/HR ALLERGIES: Allergies Coded Allergies Type Severity Reaction Last Updated Verified No Known Drug Allergies 12/09/18 No ROS: Unable to be obtained PHYSICAL EXAM: Vital Signs: Vital Signs Date Time Temp Pulse Resp B/P (MAP) Pulse Ox O2 Delivery O2 Flow Rate FiO2 02/05/19 08:49 94 Ventilator 02/05/19 08:00 98 25 107/73 (84) 02/05/19 07:00 99.2 99.2 02/04/19 14:51 15.0 I & O Intake and Output 02/05/19 07:00 Intake Total 3981.2 ml Output Total 550 ml Balance 3431.2 ml Intake IV Total 3981.2 ml Output Urine Total 550 ml Physical Exam: Intubated and Sedated Irregular heart tones. No m/r/g Clear lungs anteriorly no edema. DIAGNOSTIC TESTING: Labs reviewed. CXR reviewed. CT head reviewed ASSESSMENT: 1. Acute respiratory failure: Ddx is broad(Medication side effects, infection, heart failure) 2. NSTEMI - Likely due to stress from #1. 3. AL - ? if due to hypotension 4. Persistent atrial fibrillation 5. Possible shock liver PLAN: 1. Will plan for limited echo. 2. Hold on lasix for now as he has AL. Agree with IVF and will monitor CXR and cr. 3. He has an overall shock picture. Off Levophed now, improving. 4. Continue hep gtt for now. 5. Continue serial enzymes Supportive care. Will follow along. TONIO KIM MD Feb 05, 2019 09:18
[2019-02-05] MEDS: BUDESONIDE 0.5 MG/2 ML NEBU. NEB SCH ×2 (09:34→19:49)
[2019-02-05 09:49] LABS: BASE EXCESS ABG -4 mmol/L (-3-3); HCO3 ABG 22 mmol/L (21-28); PCO2 ABG 40 mmHg (35-46); PO2 ABG 61 mmHg (65-108); SAT O2 ABG 88 % (92-99)
[2019-02-05 10:01] LABS: FIO2 ABG 40
[2019-02-05] MEDS: HEPARIN 25,000UTS/500ML PREMIX 500 ML IV PRN (11:57)
--- NOTE | 2019-02-05 12:32 | PDOC ---
Infectious Disease Note Vital Sign Vital Signs Vital Signs Date Time Temp Pulse Resp B/P (MAP) Pulse Ox O2 Delivery O2 Flow Rate FiO2 02/05/19 11:00 99 25 139/85 (103) 94 Ventilator 02/05/19 07:00 99.2 99.2 02/04/19 14:51 15.0 Labs Lab Laboratory Tests Test 02/04/19 14:55 02/04/19 15:50 02/04/19 19:45 02/04/19 19:58 White Blood Count 11.6 x10^3/uL (4.0-11.0) Red Blood Count 3.68 x10^6/uL (4.30-5.70) Hemoglobin 11.3 g/dL (13.0-17.5) Hematocrit 35.6 % (39.0-53.0) Mean Corpuscular Volume 97 fL (79-100) Mean Corpuscular Hemoglobin 31 pg (25-35) Mean Corpuscular Hemoglobin Concent 32 g/dL (31-37) Red Cell Distribution Width 14.7 % (11.5-14.5) Platelet Count 471 x10^3/uL (140-400) Neutrophils (%) (Auto) 84 % (31-73) Lymphocytes (%) (Auto) 5 % (24-48) Monocytes (%) (Auto) 11 % (0-9) Eosinophils (%) (Auto) 0 % (0-3) Basophils (%) (Auto) 0 % (0-3) Neutrophils # (Auto) 9.7 x10^3uL (1.8-7.7) Lymphocytes # (Auto) 0.6 x10^3/uL (1.0-4.8) Monocytes # (Auto) 1.3 x10^3/uL (0.0-1.1) Eosinophils # (Auto) 0.0 x10^3/uL (0.0-0.7) Basophils # (Auto) 0.0 x10^3/uL (0.0-0.2) Prothrombin Time 15.4 SEC (11.7-14.0) Prothromb Time International Ratio 1.3 (0.8-1.1) Sodium Level 138 mmol/L (136-145) Potassium Level 6.2 mmol/L (3.5-5.1) Chloride Level 98 mmol/L (98-107) Carbon Dioxide Level 28 mmol/L (21-32) Anion Gap 12 (6-14) Blood Urea Nitrogen 23 mg/dL (8-26) Creatinine 2.3 mg/dL (0.7-1.3) Estimated GFR (Cockcroft-Gault) 29.2 BUN/Creatinine Ratio 10 (6-20) Glucose Level 123 mg/dL (70-99) Lactic Acid Level 2.1 mmol/L (0.4-2.0) 2.0 mmol/L (0.4-2.0) Calcium Level 8.9 mg/dL (8.5-10.1) Magnesium Level 2.3 mg/dL (1.8-2.4) Total Bilirubin 0.3 mg/dL (0.2-1.0) Aspartate Amino Transf (AST/SGOT) 144 U/L (15-37) Alanine Aminotransferase (ALT/SGPT) 122 U/L (16-63) Alkaline Phosphatase 92 U/L (46-116) Creatine Kinase 494 U/L (39-308) Troponin I Quantitative 0.310 ng/mL (0.000-0.055) 1.312 ng/mL (0.000-0.055) FX-Brn-D-Type Natriuretic Peptide 7488 pg/mL (0-124) Total Protein 7.7 g/dL (6.4-8.2) Albumin 3.3 g/dL (3.4-5.0) Albumin/Globulin Ratio 0.8 (1.0-1.7) Lipase 110 U/L (73-393) Procalcitonin < 0.10 ng/mL (0.00-0.10) Ethyl Alcohol Level < 10 mg/dL (0-10) O2 Saturation 92 % (92-99) 96 % (92-99) Arterial Blood pH 7.20 (7.35-7.45) 7.31 (7.35-7.45) Arterial Blood pCO2 at Patient Temp 59 mmHg (35-46) 43 mmHg (35-46) Arterial Blood pO2 at Patient Temp 74 mmHg (65-108) 91 mmHg (65-108) Arterial Blood HCO3 22 mmol/L (21-28) 21 mmol/L (21-28) Arterial Blood Base Excess -6 mmol/L (-3-3) -5 mmol/L (-3-3) Oxyhemoglobin 91.7 % Methemoglobin 0.4 % (0.0-1.9) Carbon Monoxide, Quantitative 0.3 % (0.0-1.9) FiO2 60 70 Arterial Blood pH (Temp corrected) 7.30 Arterial Blood pCO2 (Temp correct) 44 mmHg Arterial Blood pO2 (Temp corrected) 95 mmHg Test 02/04/19 22:30 02/05/19 04:55 02/05/19 05:00 02/05/19 06:00 Troponin I Quantitative 2.514 ng/mL (0.000-0.055) O2 Saturation 91 % (92-99) Arterial Blood pH 7.35 (7.35-7.45) Arterial Blood pCO2 at Patient Temp 37 mmHg (35-46) Arterial Blood pO2 at Patient Temp 67 mmHg (65-108) Arterial Blood HCO3 20 mmol/L (21-28) Arterial Blood Base Excess -5 mmol/L (-3-3) FiO2 50 White Blood Count 8.8 x10^3/uL (4.0-11.0) Red Blood Count 3.46 x10^6/uL (4.30-5.70) Hemoglobin 10.8 g/dL (13.0-17.5) Hematocrit 32.6 % (39.0-53.0) Mean Corpuscular Volume 94 fL (79-100) Mean Corpuscular Hemoglobin 31 pg (25-35) Mean Corpuscular Hemoglobin Concent 33 g/dL (31-37) Red Cell Distribution Width 14.3 % (11.5-14.5) Platelet Count 309 x10^3/uL (140-400) Heparin Anti-Xa Act, Unfractionated < 0.10 IU/mL (0.30-0.70) Sodium Level 142 mmol/L (136-145) Potassium Level 4.8 mmol/L (3.5-5.1) Chloride Level 104 mmol/L (98-107) Carbon Dioxide Level 23 mmol/L (21-32) Anion Gap 15 (6-14) Blood Urea Nitrogen 35 mg/dL (8-26) Creatinine 2.2 mg/dL (0.7-1.3) Estimated GFR (Cockcroft-Gault) 30.7 BUN/Creatinine Ratio 16 (6-20) Glucose Level 112 mg/dL (70-99) Calcium Level 8.3 mg/dL (8.5-10.1) Total Bilirubin 0.2 mg/dL (0.2-1.0) Aspartate Amino Transf (AST/SGOT) 2453 U/L (15-37) Alanine Aminotransferase (ALT/SGPT) 2097 U/L (16-63) Alkaline Phosphatase 83 U/L (46-116) Total Protein 5.7 g/dL (6.4-8.2) Albumin 2.7 g/dL (3.4-5.0) Albumin/Globulin Ratio 0.9 (1.0-1.7) Test 02/05/19 09:39 O2 Saturation 88 % (92-99) Arterial Blood pH 7.35 (7.35-7.45) Arterial Blood pCO2 at Patient Temp 40 mmHg (35-46) Arterial Blood pO2 at Patient Temp 61 mmHg (65-108) Arterial Blood HCO3 22 mmol/L (21-28) Arterial Blood Base Excess -4 mmol/L (-3-3) FiO2 40 Objective Assessment Sepsis with hypotension, POA, now off pressers Fever Suspect aspiration Postsurgical spine infection with epidural abscess, s/p I and D on 12/30/18. 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 (microdiscectomy with decompression of the left L4 and L5 nerve roots) -recent ESR 25 Acute respiratory failure Acute encephalopathy NSTEMI AL Shock liver Myoclonic movements, on Keppra Hypertension. Atrial fibrillation. Obstructive sleep apnea. Morbid obesity. Chronic obstructive pulmonary disease. Plan Plan of Care Continue Zosyn for suspected aspiration and continual tx for spinal infection Pancultures pending Monitor labs/VS/temp Supportive care awaiting MRI lumbar spine when stable D/w D/w nursing Condition critical Thank you [phone] Patient seen and examined. Chart reviewed in detail. Case discussed with [employer]OR [employer] TEACHER> Agree with above plan. SOPHY RIDER APRN Feb 05, 2019 12:32 LOGAN DAMIAN MD Feb 05, 2019 19:55
--- NOTE | 2019-02-05 14:03 | CONS ---
DATE OF CONSULTATION: 02/05/2019 DICTATED BY: This is Jai Johnson, nurse practitioner, dictating for Dr. Logan Damian, Infectious Disease. REFERRING PHYSICIAN: Dr. Morataya. REASON FOR CONSULTATION: Sepsis. HISTORY OF PRESENT ILLNESS: This patient is a 58-year-old male with a past medical history of chronic lower back pain with radiculopathy to his left lower extremity, who had undergone a lumbar laminectomy on 12/09/2018. Postop was complicated by a spinal infection with abscess. He underwent incision and drainage along with re-hemilaminectomy and microdiskectomy on 12/30/2018, for which cultures grew Enterococcus, ampicillin sensitive. He was discharged to [facility] on a 6-week course minimum of ampicillin. According to his , he was doing pretty well and participating in physical therapy. However, over the last day or so, he was not sleeping well. He declined physical therapy and was complaining of increased pain. As such, he was given Ambien for sleep and his pain medications were increased. He was later found unresponsive with agonal breathing. He arrived to the ER bagged and immediately was intubated. He was started on Keppra as well for some myoclonic jerking. He was given Narcan and fluids. He was hypoxic and hypotensive, requiring pressor support as well. He had a low-grade fever of 100 with a white blood cell count of 11,600. Lactic acid level was 2.1 and procalcitonin less than 0.10. His creatinine was 2.3, BUN 23 and potassium 6.2. Troponin was elevated along with liver enzymes. A chest x-ray showed no acute infiltrates. Head CT showed no evidence of acute intracranial hemorrhage or mass effect. Pancultures were ordered. He was dosed with Zosyn and admitted to the Intensive Care Unit. The patient remains intubated and sedated. His blood pressure has improved and he is now off pressor support. He is receiving tube feedings via OGT at a rate of 20 mL per hour. PAST MEDICAL HISTORY: COPD, atrial fibrillation, hypertension, obstructive sleep apnea, chronic back pain with radiculopathy, benign prostate hypertrophy, morbid obesity, arthritis, anxiety, depression and history of colon cancer. History of oral cancer. Diastolic heart failure. PAST SURGICAL HISTORY: As mentioned above, colon resection and multiple inguinal and ventral hernia repairs. Excision of mouth tumors x 2. FAMILY HISTORY: Positive for heart disease, hypertension, diabetes and stomach cancer. SOCIAL HISTORY: The patient is . He was residing at a senior care facility prior to this admission. He is a former smoker. History of alcoholism. ALLERGIES: No known drug allergies. MEDICATIONS: Zosyn. Previously on ampicillin. Keppra. Other medications are available and have been reviewed on the MAR. REVIEW OF SYSTEMS: Unobtainable as the patient is intubated and sedated. PHYSICAL EXAMINATION: VITAL SIGNS: Temperature is 99.2, T-max 100.2; blood pressure 139/85; heart rate 99; respiratory rate 25 and pulse oximetry is 94% on FiO2 of 40%. GENERAL: The patient is intubated and sedated with mittens in place. HEENT: Pupils are equally pinpoint. ETT and OGT in place. LUNGS: Diminished aeration. HEART: S1 and S2. ABDOMEN: Obese, soft. No grimace or guarding to palpation, with bowel sounds present. GENITOURINARY: Stratton in place. EXTREMITIES: Generalized trace edema. No cyanosis. SKIN: Warm, without rash. NEUROLOGIC: Sedated. Peripheral IV looks okay. LABORATORY DATA: Today's WBC 8.8, from 11.6; hemoglobin 10.8 and platelets 309,000. Creatinine 2.2, BUN 35, sodium 142, potassium 4.8 and glucose 112. Lactic acid 2.0. Total bilirubin 0.2, AST 2453 and ALT 2097. Creatine kinase 494. Troponin 2.514. Albumin 2.7. Procalcitonin less than 0.10. Lipase 110. Sed rate from 01/31/2019 was 25, down from 59 prior. Pancultures pending. Chest x-ray and head CT per HPI. KUB showed gastric tube in stomach. MRSA screen pending. Urine drug screen pending. Lumbar spine without and with contrast pending. ASSESSMENT: 1. Sepsis with hypotension, present on admission, now off pressors. 2. Fever. 3. Suspect aspiration. 4. Post-surgical spine infection with epidural abscess, status post incision and drainage on 12/30/2018, with growth of Enterococcus, ampicillin sensitive. He was undergoing a treatment with ampicillin prior to this admission. His original back surgery was on 12/09/2018. Recent sed rate from 01/31/2019 was 25. 5. Acute respiratory failure. 6. Acute encephalopathy. 7. Non-ST elevation myocardial infarction. 8. Acute kidney injury. 9. Shock liver. 10. Myoclonic movements, on Keppra. 11. Hypertension. 12. Atrial fibrillation. 13. Obstructive sleep apnea. 14. Morbid obesity. 15. Chronic obstructive pulmonary disease. PLAN: Continue the Zosyn for suspected aspiration and continue all treatment for spinal infection. Pancultures are pending. Continue to monitor laboratory values, vital signs and temperature. Awaiting MRI lumbar spine when stable. Discussed with the patient's and nursing. Condition is critical. Thank you, Dr. Morataya, for asking us to participate in this patient's care. Should you have further questions or concerns, please call. LOGAN DAMIAN MD DR: STEPHAN/philip JOB#: [id number] / [id number]
[2019-02-05] MEDS ORDERED: IV NORMAL SALINE 1000ML BAG 1,000 ML IV SCH (15:30)
[2019-02-05] MEDS: levETIRAcetam 500 MG in IV DEXTROSE 5% 100ML 100 ML IV SCH (16:17)
--- NOTE | 2019-02-05 17:00 | EKG ---
[facility] [address] [place] [address] Test Date: 2019-02-04 Test Time: 15:06:59 Pat Name: TITO MEHTA Department: Room: 106 1 Gender: Male Band Builder: : 1960 Requested By: AIDAN PITTS Order Number: [id number] Reading MD: Michael Ni MD Measurements Intervals [place] Rate: 139 P: TN: QRS: 105 QRSD: 100 T: 34 QT: 300 QTc: 461 Interpretive Statements ATRIAL FIB./FLUTTER WITH RAPID VENTRICULAR RESPONSE NON-SPECIFIC ST/T CHANGES RAD RBBB Electronically Signed On 02-10-2019 13:57:07 CDT by Michael Ni MD
--- NOTE | 2019-02-05 19:02 | PDOC2 ---
CONSULT Date of Consult Date of Consult DATE: 02/05/19 TIME: 18:58 Reason for Consult Reason for Consult: Seizures Identification/Chief Complaint Chief Complaint Seizures History of Present Illness Reason for Visit: This patient is 58-year-old man information obtained from patient's family at bedside. Patient has past medical history of multiple medical problems with history of back surgery, chronic obstructive pulmonary disease, congestive heart failure, atrial fibrillation, obstructive sleep apnea. Patient was in [place] [facility] getting IV antibiotics for his abscess 12 after lumbar back surgery. Patient has been on pain medications. Patient has been receiving IV antibiotic doses. Patient had decrease in responsiveness. Patient was gasping for air. Patient was transferred to emergency room was given Narcan with a little benefit patient had respiratory failure, generalized seizure activity. Patient had a CT scan done on the brain which was negative for acute intracranial etiology patient patient was intubated patient was loaded with the Keppra loading dose. She has a history so ICU for close monitoring. Past Medical History Cardiovascular: AFIB, HTN Pulmonary: COPD, Other CENTRAL NERVOUS SYSTEM: Other GI: GERD Heme/Onc: Cancer Hepatobiliary: No pertinent hx Psych: Anxiety, Depression Musculoskeletal: low back pain, Osteoarthritis Rheumatologic: No pertinent hx Infectious disease: No pertinent hx Renal/: Benign prostatic enlarg. Endocrine: No pertinent hx Past Surgical History Past Surgical History: Hernia Repair, Colectomy, Other Family History Family History: Diabetes, Heart Disease Social History ALCOHOL: occassional Drugs: None Lives: with Family Current Problem List Problem List Problems Medical Problems: (1) Altered mental status Status: Acute (2) Elevated LFTs Status: Acute (3) Hyperkalemia Status: Acute Current Medications Current Medications Current Medications Sodium Chloride 1,000 ml @ 1,000 mls/hr 1X ONCE IV Last administered on at 15:03; Start 02/04/19 at 15:15; Stop 02/04/19 at 16:14; Status DC Midazolam HCl (Versed) 2 mg 1X ONCE IV Last administered on 02/04/19at 15:05; Start 02/04/19 at 15:15; Stop 02/04/19 at 15:16; Status DC Piperacillin Sod/ Tazobactam Sod (Zosyn Per Pharmacy) 1 each PRN DAILY PRN [facility] SEE COMMENTS; Start 02/04/19 at 15:15 Fentanyl Citrate (Fentanyl 2ml Vial) 50 mcg 1X ONCE IV ; Start 02/04/19 at 15: 15; Stop 02/04/19 at 15:16; Status DC Piperacillin Sod/ Tazobactam Sod 4.5 gm/Sodium Chloride 100 ml @ 200 mls/hr 1X ONCE IV Last administered on 02/04/19at 15:33; Start 02/04/19 at 16:00; Stop 02/04/19 at 16:29; Status DC Etomidate (Amidate) 20 mg STK-MED ONCE IV ; Start 02/04/19 at 15:22; Stop at 15:23; Status DC Naloxone HCl (Narcan) 2 mg STK-MED ONCE .ROUTE ; Start 02/04/19 at 15:22; Stop 02/04/19 at 15:23; Status DC Rocuronium [place] (Zemuron) 50 mg STK-MED ONCE .ROUTE ; Start 02/04/19 at 15:23 ; Stop 02/04/19 at 15:24; Status DC Propofol (Diprivan) 200 mg 1X ONCE IV Last administered on 02/04/19at 16:10; Start 02/04/19 at 15:45; Stop 02/04/19 at 15:46; Status DC Sodium Chloride 1,000 ml @ 1,000 mls/hr 1X ONCE IV Last administered on at 16:05; Start 02/04/19 at 16:00; Stop 02/04/19 at 16:59; Status DC Aspirin (Aspirin) 300 mg 1X STAT ME Last administered on 02/04/19at 17:11; Start 02/04/19 at 15:52; Stop 02/04/19 at 15:55; Status DC Sodium Bicarbonate (Sodium Bicarb Adult 8.4% Syr) 50 meq 1X ONCE IV Last administered on 02/04/19at 17:11; Start 02/04/19 at 16:00; Stop 02/04/19 at 16:01 ; Status DC Levetiracetam 1000 mg/Dextrose 110 ml @ 440 mls/hr 1X ONCE IV Last administered on 02/04/19at 16:54; Start 02/04/19 at 16:00; Stop 02/04/19 at 16:14 ; Status DC Calcium Gluconate (Calcium Gluconate) 1,000 mg 1X ONCE IVP Last administered on 02/04/19at 17:01; Start 02/04/19 at 16:00; Stop 02/04/19 at 16:01; Status DC Propofol 50 ml @ As Directed STK-MED ONCE IV ; Start 02/04/19 at 16:05; Stop at 16:06; Status DC Sodium Chloride 1,000 ml @ 125 mls/hr Q8H IV Last administered on 02/05/19at 07 :12; Start 02/04/19 at 16:09; Stop 02/05/19 at 15:19; Status DC Piperacillin Sod/ Tazobactam Sod 3.375 gm/Sodium Chloride 50 ml @ 100 mls/hr Q6HRS IV Last administered on 02/05/19at 18:11; Start 02/05/19 at 00:00 Etomidate (Amidate) 20 mg 1X ONCE IV Last administered on 02/04/19at 15:00; Start 02/04/19 at 16:45; Stop 02/04/19 at 16:46; Status DC Rocuronium [place] (Zemuron) 100 mg 1X ONCE IV Last administered on 02/04/19at 15:00; Start 02/04/19 at 16:45; Stop 02/04/19 at 16:46; Status DC Naloxone HCl (Narcan) 2 mg 1X ONCE IV Last administered on 02/04/19at 14:57; Start 02/04/19 at 16:45; Stop 02/04/19 at 16:46; Status DC Norepinephrine Bitartrate 250 ml @ 1.875 mls/ hr CONT PRN IV SEE I/O RECORD; Start 02/04/19 at 17:30 Dopamine HCl/ Dextrose 250 ml @ As Directed STK-MED ONCE IV ; Start 02/04/19 at 17:25; Stop 02/04/19 at 17:26; Status DC Fentanyl Citrate (Fentanyl 2ml Vial) 50 mcg 1X ONCE IV ; Start 02/04/19 at 17: 45; Stop 02/04/19 at 17:46; Status DC Midazolam HCl (Versed) 2 mg 1X ONCE IV ; Start 02/04/19 at 17:45; Stop at 17:46; Status DC Propofol 100 ml @ As Directed STK-MED ONCE IV ; Start 02/04/19 at 18:45; Stop 02/04/19 at 18:46; Status DC Propofol 100 ml @ 1.905 mls/ hr CONT PRN IV SEE I/O RECORD; Start 02/04/19 at 18:45 Fentanyl Citrate 30 ml @ 0 mls/hr CONT PRN IV SEE PROTOCOL Last administered on 02/05/19at 12:51; Start 02/04/19 at 19:45 Midazolam HCl 100 ml @ 0 mls/hr CONT PRN IV SEE PROTOCOL Last administered on at 16:16; Start 02/04/19 at 19:45 Heparin Sodium/ Dextrose 500 ml @ 0 mls/hr CONT PRN IV SEE I/O RECORD Last administered on 02/05/19at 11:57; Start 02/04/19 at 22:45 Info (Anti-Coagulation Monitoring By Pharmacy) 1 each PRN DAILY PRN [facility] SEE COMMENTS Last administered on 02/05/19at 01:26; Start 02/04/19 at 22:45 Heparin Sodium (Porcine) (Heparin Sodium) 3,250 unit PRN Q6HRS PRN IV FOR UFH LEVEL LESS THAN 0.2 Last administered on 02/05/19at 07:22; Start 02/05/19 at 01: 30 Albuterol/ Ipratropium (Duoneb) 3 ml RTQID NEB Last administered on 02/05/19at 15:39; Start 02/05/19 at 08:00 Budesonide (Pulmicort) 0.5 mg RTBID NEB Last administered on 02/05/19at 09:34; Start 02/05/19 at 08:00 Famotidine (Pepcid Vial) 20 mg QHS IVP ; Start 02/05/19 at 21:00 Sodium Chloride 1,000 ml @ 125 mls/hr Q8HRS IV ; Start 02/05/19 at 15:30; Status UNV Levetiracetam 500 mg/Dextrose 105 ml @ 420 mls/hr Q12HR IV Last administered on 02/05/19at 16:17; Start 02/05/19 at 16:30 Sodium Chloride 1,000 ml @ 125 mls/hr Q8H IV Last administered on 02/05/19at 16 :17; Start 02/05/19 at 16:00 Active Scripts Active Unasyn 3 Gm Vial (Ampicillin Sodium/Sulbactam Na) 3 Gm Vial 2 Gm IV Q4HRS 45 Days Oxycodone Hcl Immed.release (Oxycodone Hcl) 5 Mg Tablet 10 Mg PO PRN Q4HRS PRN Oxycontin (Oxycodone HCl) 15 Mg Tab.er.12h 15 Mg PO Q12HR Colace (Docusate Sodium) 100 Mg Capsule 100 Mg PO BID 30 Days Metoprolol Tartrate 25 Mg Tablet 25 Mg PO BID Reported Hydrochlorothiazide Capsule (Hydrochlorothiazide) 12.5 Mg Capsule 25 Mg PO DAILY Proair Hfa Inhaler (Albuterol Sulfate) 8.5 Gm Hfa.aer.ad 2 Puff INH PRN Q6HRS PRN Albuterol Sulfate Neb Soln (Albuterol Sulfate) 2.5 Mg/3 Ml Vial.neb 2.5 Mg NEB PRN Q4-6HRS PRN Ipratropium [place] 0.2 Mg/1 Ml Solution 0.2 Mg IH PRN Q4-6HRS PRN Zoloft (Sertraline Hcl) 100 Mg Tablet 1 Tab PO DAILY Robaxin (Methocarbamol) 500 Mg Tablet 500 Mg PO QID PRN Azelastine Hcl 6 Ml Drops 1 Drop EACHEYE PRN DAILY PRN Lisinopril 10 Mg Tablet 10 Mg PO DAILY Lasix (Furosemide) 20 Mg Tablet 20 Mg PO DAILY Tamsulosin Hcl 0.4 Mg Cap.er.24h 0.4 Mg PO DAILY Montelukast Sodium Tablet (Montelukast Sodium) 10 Mg Tablet 10 Mg PO HS Omeprazole 20 Mg Capsule.dr 20 Mg PO DAILY Topiramate 50 Mg Tablet 1 Tab PO BID Daliresp (Roflumilast) 500 Mcg Tablet 500 Mcg PO DAILY Allergies Allergies: Coded Allergies: No Known Drug Allergies (Unverified , 12/09/18) Physical Exam Physical Exam PHYSICAL EXAMINATION: General: Intubated HEENT: Normal cephalic and non traumatic. Neck: No lymphadenopathy. No resistance. Cardiac: irregular rate and rhythm. Pulmonary: On vent. Abdomen: Bowel sounds are normal. NEUROLOGICAL EXAMINATION: On vent. Sedation Not orientated to time, place and person. Pupils + reaction to light stimuli. Corneal reflex: minimal. EOMI CN: No acute findings. Neck: No resistance Muscle Tone: normal Muscle Strength: minimal movements noted to stimuli DTR: 0-1 Sensory: + response to pain stimuli. Plantar Reflex: down response bilaterally Cerebellar Signs: Not able Gait: Not able Vitals VITALS Vital Signs Date Time Temp Pulse Resp B/P (MAP) Pulse Ox O2 Delivery O2 Flow Rate FiO2 02/05/19 18:00 98 26 126/75 (92) 98 Ventilator 02/05/19 16:00 97.9 97.9 02/04/19 14:51 15.0 Labs Labs Laboratory Tests Test 02/04/19 14:55 02/04/19 15:50 02/04/19 19:45 02/04/19 19:58 White Blood Count 11.6 x10^3/uL (4.0-11.0) Red Blood Count 3.68 x10^6/uL (4.30-5.70) Hemoglobin 11.3 g/dL (13.0-17.5) Hematocrit 35.6 % (39.0-53.0) Mean Corpuscular Volume 97 fL (79-100) Mean Corpuscular Hemoglobin 31 pg (25-35) Mean Corpuscular Hemoglobin Concent 32 g/dL (31-37) Red Cell Distribution Width 14.7 % (11.5-14.5) Platelet Count 471 x10^3/uL (140-400) Neutrophils (%) (Auto) 84 % (31-73) Lymphocytes (%) (Auto) 5 % (24-48) Monocytes (%) (Auto) 11 % (0-9) Eosinophils (%) (Auto) 0 % (0-3) Basophils (%) (Auto) 0 % (0-3) Neutrophils # (Auto) 9.7 x10^3uL (1.8-7.7) Lymphocytes # (Auto) 0.6 x10^3/uL (1.0-4.8) Monocytes # (Auto) 1.3 x10^3/uL (0.0-1.1) Eosinophils # (Auto) 0.0 x10^3/uL (0.0-0.7) Basophils # (Auto) 0.0 x10^3/uL (0.0-0.2) Prothrombin Time 15.4 SEC (11.7-14.0) Prothromb Time International Ratio 1.3 (0.8-1.1) Sodium Level 138 mmol/L (136-145) Potassium Level 6.2 mmol/L (3.5-5.1) Chloride Level 98 mmol/L (98-107) Carbon Dioxide Level 28 mmol/L (21-32) Anion Gap 12 (6-14) Blood Urea Nitrogen 23 mg/dL (8-26) Creatinine 2.3 mg/dL (0.7-1.3) Estimated GFR (Cockcroft-Gault) 29.2 BUN/Creatinine Ratio 10 (6-20) Glucose Level 123 mg/dL (70-99) Lactic Acid Level 2.1 mmol/L (0.4-2.0) 2.0 mmol/L (0.4-2.0) Calcium Level 8.9 mg/dL (8.5-10.1) Magnesium Level 2.3 mg/dL (1.8-2.4) Total Bilirubin 0.3 mg/dL (0.2-1.0) Aspartate Amino Transf (AST/SGOT) 144 U/L (15-37) Alanine Aminotransferase (ALT/SGPT) 122 U/L (16-63) Alkaline Phosphatase 92 U/L (46-116) Creatine Kinase 494 U/L (39-308) Troponin I Quantitative 0.310 ng/mL (0.000-0.055) 1.312 ng/mL (0.000-0.055) SH-Eoy-X-Type Natriuretic Peptide 7488 pg/mL (0-124) Total Protein 7.7 g/dL (6.4-8.2) Albumin 3.3 g/dL (3.4-5.0) Albumin/Globulin Ratio 0.8 (1.0-1.7) Lipase 110 U/L (73-393) Procalcitonin < 0.10 ng/mL (0.00-0.10) Ethyl Alcohol Level < 10 mg/dL (0-10) O2 Saturation 92 % (92-99) 96 % (92-99) Arterial Blood pH 7.20 (7.35-7.45) 7.31 (7.35-7.45) Arterial Blood pCO2 at Patient Temp 59 mmHg (35-46) 43 mmHg (35-46) Arterial Blood pO2 at Patient Temp 74 mmHg (65-108) 91 mmHg (65-108) Arterial Blood HCO3 22 mmol/L (21-28) 21 mmol/L (21-28) Arterial Blood Base Excess -6 mmol/L (-3-3) -5 mmol/L (-3-3) Oxyhemoglobin 91.7 % Methemoglobin 0.4 % (0.0-1.9) Carbon Monoxide, Quantitative 0.3 % (0.0-1.9) FiO2 60 70 Arterial Blood pH (Temp corrected) 7.30 Arterial Blood pCO2 (Temp correct) 44 mmHg Arterial Blood pO2 (Temp corrected) 95 mmHg Test 02/04/19 22:30 02/05/19 04:55 02/05/19 05:00 02/05/19 06:00 Troponin I Quantitative 2.514 ng/mL (0.000-0.055) O2 Saturation 91 % (92-99) Arterial Blood pH 7.35 (7.35-7.45) Arterial Blood pCO2 at Patient Temp 37 mmHg (35-46) Arterial Blood pO2 at Patient Temp 67 mmHg (65-108) Arterial Blood HCO3 20 mmol/L (21-28) Arterial Blood Base Excess -5 mmol/L (-3-3) FiO2 50 White Blood Count 8.8 x10^3/uL (4.0-11.0) Red Blood Count 3.46 x10^6/uL (4.30-5.70) Hemoglobin 10.8 g/dL (13.0-17.5) Hematocrit 32.6 % (39.0-53.0) Mean Corpuscular Volume 94 fL (79-100) Mean Corpuscular Hemoglobin 31 pg (25-35) Mean Corpuscular Hemoglobin Concent 33 g/dL (31-37) Red Cell Distribution Width 14.3 % (11.5-14.5) Platelet Count 309 x10^3/uL (140-400) Heparin Anti-Xa Act, Unfractionated < 0.10 IU/mL (0.30-0.70) Sodium Level 142 mmol/L (136-145) Potassium Level 4.8 mmol/L (3.5-5.1) Chloride Level 104 mmol/L (98-107) Carbon Dioxide Level 23 mmol/L (21-32) Anion Gap 15 (6-14) Blood Urea Nitrogen 35 mg/dL (8-26) Creatinine 2.2 mg/dL (0.7-1.3) Estimated GFR (Cockcroft-Gault) 30.7 BUN/Creatinine Ratio 16 (6-20) Glucose Level 112 mg/dL (70-99) Calcium Level 8.3 mg/dL (8.5-10.1) Total Bilirubin 0.2 mg/dL (0.2-1.0) Aspartate Amino Transf (AST/SGOT) 2453 U/L (15-37) Alanine Aminotransferase (ALT/SGPT) 2097 U/L (16-63) Alkaline Phosphatase 83 U/L (46-116) Total Protein 5.7 g/dL (6.4-8.2) Albumin 2.7 g/dL (3.4-5.0) Albumin/Globulin Ratio 0.9 (1.0-1.7) Test 02/05/19 09:39 02/05/19 13:25 O2 Saturation 88 % (92-99) Arterial Blood pH 7.35 (7.35-7.45) Arterial Blood pCO2 at Patient Temp 40 mmHg (35-46) Arterial Blood pO2 at Patient Temp 61 mmHg (65-108) Arterial Blood HCO3 22 mmol/L (21-28) Arterial Blood Base Excess -4 mmol/L (-3-3) FiO2 40 Heparin Anti-Xa Act, Unfractionated 0.26 IU/mL (0.30-0.70) Laboratory Tests Test 02/04/19 19:45 02/04/19 19:58 02/04/19 22:30 02/05/19 04:55 Lactic Acid Level 2.0 mmol/L (0.4-2.0) Troponin I Quantitative 1.312 ng/mL (0.000-0.055) 2.514 ng/mL (0.000-0.055) O2 Saturation 96 % (92-99) 91 % (92-99) Arterial Blood pH 7.31 (7.35-7.45) 7.35 (7.35-7.45) Arterial Blood pH (Temp corrected) 7.30 Arterial Blood pCO2 at Patient Temp 43 mmHg (35-46) 37 mmHg (35-46) Arterial Blood pCO2 (Temp correct) 44 mmHg Arterial Blood pO2 at Patient Temp 91 mmHg (65-108) 67 mmHg (65-108) Arterial Blood pO2 (Temp corrected) 95 mmHg Arterial Blood HCO3 21 mmol/L (21-28) 20 mmol/L (21-28) Arterial Blood Base Excess -5 mmol/L (-3-3) -5 mmol/L (-3-3) FiO2 70 50 Test 02/05/19 05:00 02/05/19 06:00 02/05/19 09:39 02/05/19 13:25 White Blood Count 8.8 x10^3/uL (4.0-11.0) Red Blood Count 3.46 x10^6/uL (4.30-5.70) Hemoglobin 10.8 g/dL (13.0-17.5) Hematocrit 32.6 % (39.0-53.0) Mean Corpuscular Volume 94 fL (79-100) Mean Corpuscular Hemoglobin 31 pg (25-35) Mean Corpuscular Hemoglobin Concent 33 g/dL (31-37) Red Cell Distribution Width 14.3 % (11.5-14.5) Platelet Count 309 x10^3/uL (140-400) Heparin Anti-Xa Act, Unfractionated < 0.10 IU/mL (0.30-0.70) 0.26 IU/mL (0.30-0.70) Sodium Level 142 mmol/L (136-145) Potassium Level 4.8 mmol/L (3.5-5.1) Chloride Level 104 mmol/L (98-107) Carbon Dioxide Level 23 mmol/L (21-32) Anion Gap 15 (6-14) Blood Urea Nitrogen 35 mg/dL (8-26) Creatinine 2.2 mg/dL (0.7-1.3) Estimated GFR (Cockcroft-Gault) 30.7 BUN/Creatinine Ratio 16 (6-20) Glucose Level 112 mg/dL (70-99) Calcium Level 8.3 mg/dL (8.5-10.1) Total Bilirubin 0.2 mg/dL (0.2-1.0) Aspartate Amino Transf (AST/SGOT) 2453 U/L (15-37) Alanine Aminotransferase (ALT/SGPT) 2097 U/L (16-63) Alkaline Phosphatase 83 U/L (46-116) Total Protein 5.7 g/dL (6.4-8.2) Albumin 2.7 g/dL (3.4-5.0) Albumin/Globulin Ratio 0.9 (1.0-1.7) O2 Saturation 88 % (92-99) Arterial Blood pH 7.35 (7.35-7.45) Arterial Blood pCO2 at Patient Temp 40 mmHg (35-46) Arterial Blood pO2 at Patient Temp 61 mmHg (65-108) Arterial Blood HCO3 22 mmol/L (21-28) Arterial Blood Base Excess -4 mmol/L (-3-3) FiO2 40 Assessment/Plan Assessment/Plan This patient is 58-year-old man information obtained from patient's family at bedside. Patient has past medical history of multiple medical problems with history of back surgery, chronic obstructive pulmonary disease, congestive heart failure, atrial fibrillation, obstructive sleep apnea. Patient was in [place] [facility] getting IV antibiotics for his abscess 12 after lumbar back surgery. Patient has been on pain medications. Patient has been receiving IV antibiotic doses. Patient had decrease in responsiveness. Patient was gasping for air. Patient was transferred to emergency room was given Narcan with a little benefit patient had respiratory failure, generalized seizure activity. Patient had a CT scan done on the brain which was negative for acute intracranial etiology patient patient was intubated patient was loaded with the Keppra loading dose. She has a history so ICU for close monitoring. 58-year-old man with past medical history of multiple medical problems with history of obstructive sleep apnea atrial fibrillation history of back surgery, chronic obstructive pulmonary disease, congestive heart failure, atrial fibrillation, was in [place] [facility] getting IV antibiotics patient had previously had back surgery done patient had the abscess after lumbar back surgery. Patient was on antibiotics. Patient had acute respiratory failure patient was intubated, patient also had episodes of generalized seizure activity. Patient required a loading dose of Keppra. Will continue Keppra 500 IV Q 12. No new clinical seizures noted. Patient had CT scan done on the brain which was negative for acute intracranial hemorrhage or mass. Changes noted for chronic small vessel ischemic disease, atrophy noted. MRI of lumbar spine to evaluate for acute process, MRI of brain to further evaluate for any hypoxic, anoxic injury. The post surgical spine infection on antibiotics., cultures, infectious disease recommendations. Continue medical management. Plan discussed with patient's family at bedside FOREIGN EDWARD MD Feb 05, 2019 19:02
[2019-02-05] MEDS: FAMOTIDINE 20 MG/2 ML VIAL IVP SCH (20:26)
[2019-02-06] VITALS (23 sets, daily range): BP systolic 109–192; BP diastolic 70–117
[2019-02-06] MEDS: MIDAZOLAM 100mg/100ml NS BAG 100 ML IV PRN (01:52)
[2019-02-06] MEDS: HEPARIN 25,000UTS/500ML PREMIX 500 ML IV PRN (01:53)
[2019-02-06] MEDS: PIPERACILLIN/TAZOBACTAM 3.375 GM in IV NORMAL SALINE 50ML 50 ML IV SCH ×3 (05:35→17:37)
[2019-02-06 05:52] LABS: BASO # 0.1 x10^3/uL (0.0-0.2); BASO % 1 % (0-3); EOS # 0.2 x10^3/uL (0.0-0.7); EOS % 2 % (0-3); HEMATOCRIT 29.2 % (39.0-53.0); HEMOGLOBIN 9.7 g/dL (13.0-17.5); LYMPH # 0.9 x10^3/uL (1.0-4.8); LYMPH % 12 % (24-48); MEAN CORPUSCULAR HEMOGLOBIN 31 pg (25-35); MEAN CORPUSCULAR HGB CONC 33 g/dL (31-37); MEAN CORPUSCULAR VOLUME 94 fL (79-100); MONO # 0.6 x10^3/uL (0.0-1.1); MONO % 8 % (0-9); NEUT # 5.7 x10^3uL (1.8-7.7); NEUT % 78 % (31-73); PLATELET COUNT 265 x10^3/uL (140-400); RED BLOOD COUNT 3.12 x10^6/uL (4.30-5.70); RED CELL DISTRIBUTION WIDTH 14.2 % (11.5-14.5); WHITE BLOOD COUNT 7.4 x10^3/uL (4.0-11.0)
--- NOTE | 2019-02-06 06:14 | PDOC ---
PULMONARY PROGRESS NOTES Subjective on vent, sedated, mod ett secretion, no pressors Vitals Vital Signs Date Time Temp Pulse Resp B/P (MAP) Pulse Ox O2 Delivery O2 Flow Rate FiO2 02/06/19 06:06 26 100 BiPAP/CPAP 02/06/19 06:00 91 118/70 (86) 02/06/19 05:36 15.0 02/06/19 04:55 98.4 98.4 Comments ros as mentioned as above discussed w rn, other sys otherwise neg on vent sedated HEENT: Other (nc at perrl nose clear, orally intubated, neck no lad, no thyromegaly) Lungs: Crackles Cardiovascular: Other (irreg irreg) Abdomen: Soft, Non-tender Extremities: No Edema Skin: Warm Labs Laboratory Tests Test 02/04/19 14:55 02/04/19 15:50 02/04/19 19:45 02/04/19 19:58 White Blood Count 11.6 x10^3/uL (4.0-11.0) Red Blood Count 3.68 x10^6/uL (4.30-5.70) Hemoglobin 11.3 g/dL (13.0-17.5) Hematocrit 35.6 % (39.0-53.0) Mean Corpuscular Volume 97 fL (79-100) Mean Corpuscular Hemoglobin 31 pg (25-35) Mean Corpuscular Hemoglobin Concent 32 g/dL (31-37) Red Cell Distribution Width 14.7 % (11.5-14.5) Platelet Count 471 x10^3/uL (140-400) Neutrophils (%) (Auto) 84 % (31-73) Lymphocytes (%) (Auto) 5 % (24-48) Monocytes (%) (Auto) 11 % (0-9) Eosinophils (%) (Auto) 0 % (0-3) Basophils (%) (Auto) 0 % (0-3) Neutrophils # (Auto) 9.7 x10^3uL (1.8-7.7) Lymphocytes # (Auto) 0.6 x10^3/uL (1.0-4.8) Monocytes # (Auto) 1.3 x10^3/uL (0.0-1.1) Eosinophils # (Auto) 0.0 x10^3/uL (0.0-0.7) Basophils # (Auto) 0.0 x10^3/uL (0.0-0.2) Prothrombin Time 15.4 SEC (11.7-14.0) Prothromb Time International Ratio 1.3 (0.8-1.1) Sodium Level 138 mmol/L (136-145) Potassium Level 6.2 mmol/L (3.5-5.1) Chloride Level 98 mmol/L (98-107) Carbon Dioxide Level 28 mmol/L (21-32) Anion Gap 12 (6-14) Blood Urea Nitrogen 23 mg/dL (8-26) Creatinine 2.3 mg/dL (0.7-1.3) Estimated GFR (Cockcroft-Gault) 29.2 BUN/Creatinine Ratio 10 (6-20) Glucose Level 123 mg/dL (70-99) Lactic Acid Level 2.1 mmol/L (0.4-2.0) 2.0 mmol/L (0.4-2.0) Calcium Level 8.9 mg/dL (8.5-10.1) Magnesium Level 2.3 mg/dL (1.8-2.4) Total Bilirubin 0.3 mg/dL (0.2-1.0) Aspartate Amino Transf (AST/SGOT) 144 U/L (15-37) Alanine Aminotransferase (ALT/SGPT) 122 U/L (16-63) Alkaline Phosphatase 92 U/L (46-116) Creatine Kinase 494 U/L (39-308) Troponin I Quantitative 0.310 ng/mL (0.000-0.055) 1.312 ng/mL (0.000-0.055) QF-Hkw-J-Type Natriuretic Peptide 7488 pg/mL (0-124) Total Protein 7.7 g/dL (6.4-8.2) Albumin 3.3 g/dL (3.4-5.0) Albumin/Globulin Ratio 0.8 (1.0-1.7) Lipase 110 U/L (73-393) Procalcitonin < 0.10 ng/mL (0.00-0.10) Ethyl Alcohol Level < 10 mg/dL (0-10) O2 Saturation 92 % (92-99) 96 % (92-99) Arterial Blood pH 7.20 (7.35-7.45) 7.31 (7.35-7.45) Arterial Blood pCO2 at Patient Temp 59 mmHg (35-46) 43 mmHg (35-46) Arterial Blood pO2 at Patient Temp 74 mmHg (65-108) 91 mmHg (65-108) Arterial Blood HCO3 22 mmol/L (21-28) 21 mmol/L (21-28) Arterial Blood Base Excess -6 mmol/L (-3-3) -5 mmol/L (-3-3) Oxyhemoglobin 91.7 % Methemoglobin 0.4 % (0.0-1.9) Carbon Monoxide, Quantitative 0.3 % (0.0-1.9) FiO2 60 70 Nasal Screen MRSA (PCR) Negative (Negative) Arterial Blood pH (Temp corrected) 7.30 Arterial Blood pCO2 (Temp correct) 44 mmHg Arterial Blood pO2 (Temp corrected) 95 mmHg Test 02/04/19 22:30 02/05/19 04:55 02/05/19 05:00 02/05/19 06:00 Troponin I Quantitative 2.514 ng/mL (0.000-0.055) O2 Saturation 91 % (92-99) Arterial Blood pH 7.35 (7.35-7.45) Arterial Blood pCO2 at Patient Temp 37 mmHg (35-46) Arterial Blood pO2 at Patient Temp 67 mmHg (65-108) Arterial Blood HCO3 20 mmol/L (21-28) Arterial Blood Base Excess -5 mmol/L (-3-3) FiO2 50 White Blood Count 8.8 x10^3/uL (4.0-11.0) Red Blood Count 3.46 x10^6/uL (4.30-5.70) Hemoglobin 10.8 g/dL (13.0-17.5) Hematocrit 32.6 % (39.0-53.0) Mean Corpuscular Volume 94 fL (79-100) Mean Corpuscular Hemoglobin 31 pg (25-35) Mean Corpuscular Hemoglobin Concent 33 g/dL (31-37) Red Cell Distribution Width 14.3 % (11.5-14.5) Platelet Count 309 x10^3/uL (140-400) Heparin Anti-Xa Act, Unfractionated < 0.10 IU/mL (0.30-0.70) Sodium Level 142 mmol/L (136-145) Potassium Level 4.8 mmol/L (3.5-5.1) Chloride Level 104 mmol/L (98-107) Carbon Dioxide Level 23 mmol/L (21-32) Anion Gap 15 (6-14) Blood Urea Nitrogen 35 mg/dL (8-26) Creatinine 2.2 mg/dL (0.7-1.3) Estimated GFR (Cockcroft-Gault) 30.7 BUN/Creatinine Ratio 16 (6-20) Glucose Level 112 mg/dL (70-99) Calcium Level 8.3 mg/dL (8.5-10.1) Total Bilirubin 0.2 mg/dL (0.2-1.0) Aspartate Amino Transf (AST/SGOT) 2453 U/L (15-37) Alanine Aminotransferase (ALT/SGPT) 2097 U/L (16-63) Alkaline Phosphatase 83 U/L (46-116) Total Protein 5.7 g/dL (6.4-8.2) Albumin 2.7 g/dL (3.4-5.0) Albumin/Globulin Ratio 0.9 (1.0-1.7) Test 02/05/19 09:39 02/05/19 13:25 02/05/19 20:30 02/05/19 20:38 O2 Saturation 88 % (92-99) Arterial Blood pH 7.35 (7.35-7.45) Arterial Blood pCO2 at Patient Temp 40 mmHg (35-46) Arterial Blood pO2 at Patient Temp 61 mmHg (65-108) Arterial Blood HCO3 22 mmol/L (21-28) Arterial Blood Base Excess -4 mmol/L (-3-3) FiO2 40 Heparin Anti-Xa Act, Unfractionated 0.26 IU/mL (0.30-0.70) 0.19 IU/mL (0.30-0.70) Glucose (Fingerstick) 94 mg/dL (70-99) Test 02/06/19 02:00 02/06/19 05:35 Heparin Anti-Xa Act, Unfractionated 0.29 IU/mL (0.30-0.70) White Blood Count 7.4 x10^3/uL (4.0-11.0) Red Blood Count 3.12 x10^6/uL (4.30-5.70) Hemoglobin 9.7 g/dL (13.0-17.5) Hematocrit 29.2 % (39.0-53.0) Mean Corpuscular Volume 94 fL (79-100) Mean Corpuscular Hemoglobin 31 pg (25-35) Mean Corpuscular Hemoglobin Concent 33 g/dL (31-37) Red Cell Distribution Width 14.2 % (11.5-14.5) Platelet Count 265 x10^3/uL (140-400) Neutrophils (%) (Auto) 78 % (31-73) Lymphocytes (%) (Auto) 12 % (24-48) Monocytes (%) (Auto) 8 % (0-9) Eosinophils (%) (Auto) 2 % (0-3) Basophils (%) (Auto) 1 % (0-3) Neutrophils # (Auto) 5.7 x10^3uL (1.8-7.7) Lymphocytes # (Auto) 0.9 x10^3/uL (1.0-4.8) Monocytes # (Auto) 0.6 x10^3/uL (0.0-1.1) Eosinophils # (Auto) 0.2 x10^3/uL (0.0-0.7) Basophils # (Auto) 0.1 x10^3/uL (0.0-0.2) Laboratory Tests Test 02/05/19 09:39 02/05/19 13:25 02/05/19 20:30 02/05/19 20:38 O2 Saturation 88 % (92-99) Arterial Blood pH 7.35 (7.35-7.45) Arterial Blood pCO2 at Patient Temp 40 mmHg (35-46) Arterial Blood pO2 at Patient Temp 61 mmHg (65-108) Arterial Blood HCO3 22 mmol/L (21-28) Arterial Blood Base Excess -4 mmol/L (-3-3) FiO2 40 Heparin Anti-Xa Act, Unfractionated 0.26 IU/mL (0.30-0.70) 0.19 IU/mL (0.30-0.70) Glucose (Fingerstick) 94 mg/dL (70-99) Test 02/06/19 02:00 02/06/19 05:35 Heparin Anti-Xa Act, Unfractionated 0.29 IU/mL (0.30-0.70) White Blood Count 7.4 x10^3/uL (4.0-11.0) Red Blood Count 3.12 x10^6/uL (4.30-5.70) Hemoglobin 9.7 g/dL (13.0-17.5) Hematocrit 29.2 % (39.0-53.0) Mean Corpuscular Volume 94 fL (79-100) Mean Corpuscular Hemoglobin 31 pg (25-35) Mean Corpuscular Hemoglobin Concent 33 g/dL (31-37) Red Cell Distribution Width 14.2 % (11.5-14.5) Platelet Count 265 x10^3/uL (140-400) Neutrophils (%) (Auto) 78 % (31-73) Lymphocytes (%) (Auto) 12 % (24-48) Monocytes (%) (Auto) 8 % (0-9) Eosinophils (%) (Auto) 2 % (0-3) Basophils (%) (Auto) 1 % (0-3) Neutrophils # (Auto) 5.7 x10^3uL (1.8-7.7) Lymphocytes # (Auto) 0.9 x10^3/uL (1.0-4.8) Monocytes # (Auto) 0.6 x10^3/uL (0.0-1.1) Eosinophils # (Auto) 0.2 x10^3/uL (0.0-0.7) Basophils # (Auto) 0.1 x10^3/uL (0.0-0.2) Medications Active Scripts Medications Dose Route/Sig Max Daily Dose Days Date Category Unasyn 3 Gm Vial (Ampicillin Sodium/Sulbactam Na) 3 Gm Vial 2 Gm IV Q4HRS 45 01/05/19 Rx Oxycodone Hcl Immed.release (Oxycodone Hcl) 5 Mg Tablet 10 Mg PO PRN Q4HRS PRN 01/04/19 Rx Oxycontin (Oxycodone HCl) 15 Mg Tab.er.12h 15 Mg PO Q12HR 01/04/19 Rx Colace (Docusate Sodium) 100 Mg Capsule 100 Mg PO BID 30 12/09/18 Rx Hydrochlorothiazide Capsule (Hydrochlorothiazide) 12.5 Mg Capsule 25 Mg PO DAILY 11/29/18 Reported Proair Hfa Inhaler (Albuterol Sulfate) 8.5 Gm Hfa.aer.ad 2 Puff INH PRN Q6HRS PRN 11/29/18 Reported Albuterol Sulfate Neb Soln (Albuterol Sulfate) 2.5 Mg/3 Ml Vial.neb 2.5 Mg NEB PRN Q4-6HRS PRN 11/29/18 Reported Ipratropium [place] 0.2 Mg/1 Ml Solution 0.2 Mg IH PRN Q4-6HRS PRN 11/29/18 Reported Zoloft (Sertraline Hcl) 100 Mg Tablet 1 Tab PO DAILY 11/04/18 Reported Robaxin (Methocarbamol) 500 Mg Tablet 500 Mg PO QID PRN 11/04/18 Reported Azelastine Hcl 6 Ml Drops 1 Drop EACHEYE PRN DAILY PRN 11/04/18 Reported Lisinopril 10 Mg Tablet 10 Mg PO DAILY 08/12/17 Reported Lasix (Furosemide) 20 Mg Tablet 20 Mg PO DAILY 08/12/17 Reported Tamsulosin Hcl 0.4 Mg Cap.er.24h 0.4 Mg PO DAILY 08/12/17 Reported Montelukast Sodium Tablet (Montelukast Sodium) 10 Mg Tablet 10 Mg PO HS 08/12/17 Reported Metoprolol Tartrate 25 Mg Tablet 25 Mg PO BID 07/11/16 Rx Omeprazole 20 Mg Capsule.dr 20 Mg PO DAILY 07/09/16 Reported Topiramate 50 Mg Tablet 1 Tab PO BID 07/09/16 Reported Daliresp (Roflumilast) 500 Mcg Tablet 500 Mcg PO DAILY 07/09/16 Reported Comments reviewed cxr, ett ok, ll infilt atelectasis R>L Impression . IMPRESSION: 1. Acute respiratory failure, multifactorial in etiology. 2. Abnormal chest x-ray. infilt atelectasis 3. Acute kidney injury. Electrolyte abnormality. improving 4. Elevated troponin, non-ST elevation myocardial infarction. 5. Atrial fibrillation with rapid ventricular response, now rate controlled. 6. Hyperkalemia. resolved 7. Status post back surgery, epidural abscess, incision and drainage, on antibiotic. 8. Chronic obstructive pulmonary disease. 9. Acute diastolic congestive heart failure. 10. sepsis, ? aspiration 11. Obstructive sleep apnea-hypopnea syndrome. 12. elevated LFTs improving Plan . PLAN AND RECOMMENDATIONS: 1. Titrate FiO2 to keep O2 saturation 94%. 2. Continue ventilator support. decrease sedation, sbt when awake 3. bronchodilator. 4. inhaled corticosteroid. 5. Pepcid for stress ulcer prophylaxis. 6. Monitor potassium and creatinine. 7. fu Sputum culture. 8. abx per id 9. Cardiology on case 10. Monitor respiratory status very closely. 11. review ABG and portable chest x-ray. 12. He is on heparin drip per cardiology. Monitor for bleeding. The findings and recommendations were discussed with RN. CLAUDIO SESAY MD Feb 06, 2019 06:14
[2019-02-06 06:36] LABS: ALBUMIN 2.4 g/dL (3.4-5.0); ALBUMIN/GLOBULIN RATIO 0.7 (1.0-1.7); CALCIUM 7.9 mg/dL (8.5-10.1); CREATININE 0.8 mg/dL (0.7-1.3); GFR 98.6; POTASSIUM 3.4 mmol/L (3.5-5.1); TOTAL BILIRUBIN 0.2 mg/dL (0.2-1.0); TOTAL PROTEIN 5.8 g/dL (6.4-8.2)
[2019-02-06] MEDS: IV NORMAL SALINE 1000ML BAG 1,000 ML IV SCH ×2 (07:27→21:14)
[2019-02-06] MEDS: ANTI-COAG MONITOR BY PHARMACY. MC PRN (07:57)
--- NOTE | 2019-02-06 08:30 | RAD ---
EXAM: CHEST 1 VIEW History: Respiratory distress COMPARISON: 02/04/2019 TECHNIQUE: Single portable radiograph of the chest FINDINGS: The ET tube is identified in the trachea. The feeding tube is seen below the diaphragm. Mild increase in bibasilar lung airspace opacities identified in the left likely atelectasis or infiltrates. Right-sided PICC line is unchanged. Old left rib fractures. IMPRESSION: 1. Bibasilar lung airspace opacities , right greater than left, likely atelectasis or infiltrates. Follow-up to resolution. 2. Lines and tubes as described above. Electronically signed by: Dimitry Hernandez MD (02/06/2019 8:27 AM) [facility]
[2019-02-06] MEDS: IPRATRPIUM/ALBUTEROL 0.5/2.5MG 3 ML NEBU. NEB SCH ×4 (08:33→20:42)
[2019-02-06] MEDS: BUDESONIDE 0.5 MG/2 ML NEBU. NEB SCH ×2 (08:33→20:42)
[2019-02-06] MEDS: levETIRAcetam 500 MG in IV DEXTROSE 5% 100ML 100 ML IV SCH ×2 (08:50→21:14)
[2019-02-06 08:55] LABS: BASE EXCESS ABG 0 mmol/L (-3-3); HCO3 ABG 25 mmol/L (21-28); PCO2 ABG 41 mmHg (35-46); PO2 ABG 93 mmHg (65-108); SAT O2 ABG 96 % (92-99)
--- NOTE | 2019-02-06 09:10 | PDOC ---
CARDIOLOGY PROGRESS NOTE SUBJECTIVE: On seizure meds overnight. No new cardiac issues. Hep gtt continues. Afib continues OBJECTIVE: Vital SIgns: Vital Signs Date Time Temp Pulse Resp B/P (MAP) Pulse Ox O2 Delivery O2 Flow Rate FiO2 02/06/19 07:47 Mechanical Ventilator 02/06/19 07:00 98.7 88 25 144/80 (101) 99 98.7 02/06/19 05:36 15.0 I & O +1.7 L Objective: He is on sedation but arousable. Confused Irregular heart tones. Clear lungs anteriorly Soft abd No edema. CURRENT MEDICATIONS: CV meds: Hep gtt DIAGNOSTIC TESTING: Trop today pending Hgb 9.7, Cr improved shock liver improved ASSESSMENT: 1. NSTEMI in the setting of hypoxic resp failure of unclear etiology, ? PNA 2. Permanent/persistent afib - On hep gtt 3. Possible spinal infection? - post op being evaluated PLAN: 1. Overall shock picture improving. Labs improving. 2. Plan to stop hep gtt today if trop down trending and start aspirin (if ok with neurosurgery). Hold statin due to transaminitis. 3. No need for b-juancarlos, rate controlled 4. Await limited echo. Supportive care. TONIO KIM MD Feb 06, 2019 09:10
[2019-02-06] MEDS: ASPIRIN CHEWABLE 81 MG TABLET. PO SCH (09:30)
[2019-02-06 10:15] LABS: BASE EXCESS ABG -1 mmol/L (-3-3); HCO3 ABG 24 mmol/L (21-28); PCO2 ABG 41 mmHg (35-46); PO2 ABG 71 mmHg (65-108); SAT O2 ABG 92 % (92-99)
--- NOTE | 2019-02-06 10:33 | PDOC ---
Infectious Disease Note Subjective Subjective Off sedation On weaning trial No fevers last 24 hours reported ROS ROS Unattainable Vital Sign Vital Signs Vital Signs Date Time Temp Pulse Resp B/P (MAP) Pulse Ox O2 Delivery O2 Flow Rate FiO2 02/06/19 10:00 90 25 192/90 (124) 98 Ventilator 02/06/19 07:00 98.7 98.7 02/06/19 05:36 15.0 Physical Exam PHYSICAL EXAM GENERAL: Intubated, calm HEENT: ETT and OGT in place. LUNGS: Diminished aeration. HEART: S1 and S2. ABDOMEN: Obese, soft. No grimace or guarding to palpation, with bowel sounds present. GENITOURINARY: Strat[place] in place. EXTREMITIES: Generalized trace edema. No cyanosis. SKIN: Warm, without rash. NEUROLOGIC: Arouses easily to name, PIV Labs Lab Laboratory Tests Test 02/05/19 13:25 02/05/19 20:30 02/05/19 20:38 02/06/19 02:00 Heparin Anti-Xa Act, Unfractionated 0.26 IU/mL (0.30-0.70) 0.19 IU/mL (0.30-0.70) 0.29 IU/mL (0.30-0.70) Glucose (Fingerstick) 94 mg/dL (70-99) Test 02/06/19 05:35 02/06/19 06:35 White Blood Count 7.4 x10^3/uL (4.0-11.0) Red Blood Count 3.12 x10^6/uL (4.30-5.70) Hemoglobin 9.7 g/dL (13.0-17.5) Hematocrit 29.2 % (39.0-53.0) Mean Corpuscular Volume 94 fL (79-100) Mean Corpuscular Hemoglobin 31 pg (25-35) Mean Corpuscular Hemoglobin Concent 33 g/dL (31-37) Red Cell Distribution Width 14.2 % (11.5-14.5) Platelet Count 265 x10^3/uL (140-400) Neutrophils (%) (Auto) 78 % (31-73) Lymphocytes (%) (Auto) 12 % (24-48) Monocytes (%) (Auto) 8 % (0-9) Eosinophils (%) (Auto) 2 % (0-3) Basophils (%) (Auto) 1 % (0-3) Neutrophils # (Auto) 5.7 x10^3uL (1.8-7.7) Lymphocytes # (Auto) 0.9 x10^3/uL (1.0-4.8) Monocytes # (Auto) 0.6 x10^3/uL (0.0-1.1) Eosinophils # (Auto) 0.2 x10^3/uL (0.0-0.7) Basophils # (Auto) 0.1 x10^3/uL (0.0-0.2) Sodium Level 141 mmol/L (136-145) Potassium Level 3.4 mmol/L (3.5-5.1) Chloride Level 105 mmol/L (98-107) Carbon Dioxide Level 26 mmol/L (21-32) Anion Gap 10 (6-14) Blood Urea Nitrogen 23 mg/dL (8-26) Creatinine 0.8 mg/dL (0.7-1.3) Estimated GFR (Cockcroft-Gault) 98.6 BUN/Creatinine Ratio 29 (6-20) Glucose Level 122 mg/dL (70-99) Calcium Level 7.9 mg/dL (8.5-10.1) Total Bilirubin 0.2 mg/dL (0.2-1.0) Aspartate Amino Transf (AST/SGOT) 1170 U/L (15-37) Alanine Aminotransferase (ALT/SGPT) 1770 U/L (16-63) Alkaline Phosphatase 76 U/L (46-116) Troponin I Quantitative 1.177 ng/mL (0.000-0.055) Total Protein 5.8 g/dL (6.4-8.2) Albumin 2.4 g/dL (3.4-5.0) Albumin/Globulin Ratio 0.7 (1.0-1.7) Heparin Anti-Xa Act, Unfractionated 0.29 IU/mL (0.30-0.70) CXR 1. Bibasilar lung airspace opacities , right greater than left, likely atelectasis or infiltrates. Follow-up to resolution. 2. Lines and tubes as described above. Micro Microbiology 02/04/19 Blood Culture - Preliminary, Resulted NO GROWTH AFTER 1 DAY Objective Assessment Sepsis with hypotension, POA, now off pressers. BC NGTD Fever,,, better Suspect aspiration Postsurgical spine infection with epidural abscess, s/p I and D on 12/30/18. ENTEROCOOCUS ampS,,,was undergoing TX with ampicillin at [facility] -Original back surgery was done on 12/09/2018. (microdiscectomy with decompression of the left L4 and L5 nerve roots) -recent ESR 25 Acute respiratory failure Acute encephalopathy NSTEMI AL,,,improved Shock liver Myoclonic movements, on Keppra Hypertension. Atrial fibrillation. Obstructive sleep apnea. Morbid obesity. Chronic obstructive pulmonary disease. Plan Plan of Care Continue Zosyn for suspected aspiration and continual tx for spinal infection f/u cultures Monitor labs/VS/temp Supportive care awaiting MRI lumbar spine when stable D/w nursing Condition critical Patient seen and examined. Chart reviewed in detail. Case discussed with MEDICAL OFFICER. Agree with above plan. SOPHY RIDER APRN Feb 06, 2019 10:33 LOGAN DAMIAN MD Feb 06, 2019 20:50
[2019-02-06] MEDS ORDERED: POTASSIUM CHL 20MEQ PREMIX 50 ML IV ONE (12:00)
[2019-02-06] MEDS: fentaNYL PF VIAL 100 MCG/2 ML VIAL IV PRN ×4 (12:13→21:06)
[2019-02-06] MEDS: hydrALAZINE 20 MG/ML VIAL. IVP PRN (12:13)
[2019-02-06 12:26] LABS: FIO2 ABG 40
[2019-02-06 12:27] LABS: FIO2 ABG 30
[2019-02-06] MEDS ORDERED: IV NORMAL SALINE 500ML BAG 500 ML IV PRN (13:30)
[2019-02-06] MEDS ORDERED: ATROPINE 0.5 MG/5 ML DISP.SYRINGE. IV PRN (13:30)
[2019-02-06] MEDS: DEXMEDETOMIDINE 200 MCG in IV NORMAL SALINE 50ML 48 ML IV PRN ×11 (13:41→23:16)
--- NOTE | 2019-02-06 15:04 | PDOC ---
PROGRESS NOTES Subjective Subjective Patient extubated but still obtundent and not responding well. Objective Objective Vital Signs Date Time Temp Pulse Resp B/P (MAP) Pulse Ox O2 Delivery O2 Flow Rate FiO2 02/06/19 14:00 130 33 141/73 (95) 93 Nasal Cannula 4.0 02/06/19 12:00 98.5 98.5 Intake and Output 02/06/19 07:00 Intake Total 4883.5 ml Output Total 3170 ml Balance 1713.5 ml Intake IV Total 4191.5 ml Tube Feeding 692 ml Output Urine Total 3170 ml Physical Exam Abdomen: Normal bowel sounds Heart: Regular rate Extremities: No edema General: Other (Obtundant slight confusion) Lungs: Other (course) Assessment Assessment Problems Medical Problems: (1) Altered mental status Status: Acute (2) Elevated LFTs Status: Acute (3) Hyperkalemia Status: Acute Acute respiratory failure Hypoxic encephalopathy respiratory acidosis Hyperkalemia S/P Code Acute diastolic CHF ARF NSTEMI AFIB S/P back surgery with epidural abscess with prolonged IV antibx COPD ADILENE Morbid Obesity Plan Plan of Care Continue supportive care 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 PT/OT eval and treat. Comment Review of Relevant I have reviewed the following items valerie (where applicable) has been applied. Labs Laboratory Tests Test 02/04/19 15:50 02/04/19 19:45 02/04/19 19:58 02/04/19 22:30 O2 Saturation 92 % (92-99) 96 % (92-99) Arterial Blood pH 7.20 (7.35-7.45) 7.31 (7.35-7.45) Arterial Blood pCO2 at Patient Temp 59 mmHg (35-46) 43 mmHg (35-46) Arterial Blood pO2 at Patient Temp 74 mmHg (65-108) 91 mmHg (65-108) Arterial Blood HCO3 22 mmol/L (21-28) 21 mmol/L (21-28) Arterial Blood Base Excess -6 mmol/L (-3-3) -5 mmol/L (-3-3) Oxyhemoglobin 91.7 % Methemoglobin 0.4 % (0.0-1.9) Carbon Monoxide, Quantitative 0.3 % (0.0-1.9) FiO2 60 70 Nasal Screen MRSA (PCR) Negative (Negative) Lactic Acid Level 2.0 mmol/L (0.4-2.0) Troponin I Quantitative 1.312 ng/mL (0.000-0.055) 2.514 ng/mL (0.000-0.055) Arterial Blood pH (Temp corrected) 7.30 Arterial Blood pCO2 (Temp correct) 44 mmHg Arterial Blood pO2 (Temp corrected) 95 mmHg Test 02/05/19 04:55 02/05/19 05:00 02/05/19 06:00 02/05/19 09:39 O2 Saturation 91 % (92-99) 88 % (92-99) Arterial Blood pH 7.35 (7.35-7.45) 7.35 (7.35-7.45) Arterial Blood pCO2 at Patient Temp 37 mmHg (35-46) 40 mmHg (35-46) Arterial Blood pO2 at Patient Temp 67 mmHg (65-108) 61 mmHg (65-108) Arterial Blood HCO3 20 mmol/L (21-28) 22 mmol/L (21-28) Arterial Blood Base Excess -5 mmol/L (-3-3) -4 mmol/L (-3-3) FiO2 50 40 White Blood Count 8.8 x10^3/uL (4.0-11.0) Red Blood Count 3.46 x10^6/uL (4.30-5.70) Hemoglobin 10.8 g/dL (13.0-17.5) Hematocrit 32.6 % (39.0-53.0) Mean Corpuscular Volume 94 fL (79-100) Mean Corpuscular Hemoglobin 31 pg (25-35) Mean Corpuscular Hemoglobin Concent 33 g/dL (31-37) Red Cell Distribution Width 14.3 % (11.5-14.5) Platelet Count 309 x10^3/uL (140-400) Heparin Anti-Xa Act, Unfractionated < 0.10 IU/mL (0.30-0.70) Sodium Level 142 mmol/L (136-145) Potassium Level 4.8 mmol/L (3.5-5.1) Chloride Level 104 mmol/L (98-107) Carbon Dioxide Level 23 mmol/L (21-32) Anion Gap 15 (6-14) Blood Urea Nitrogen 35 mg/dL (8-26) Creatinine 2.2 mg/dL (0.7-1.3) Estimated GFR (Cockcroft-Gault) 30.7 BUN/Creatinine Ratio 16 (6-20) Glucose Level 112 mg/dL (70-99) Calcium Level 8.3 mg/dL (8.5-10.1) Total Bilirubin 0.2 mg/dL (0.2-1.0) Aspartate Amino Transf (AST/SGOT) 2453 U/L (15-37) Alanine Aminotransferase (ALT/SGPT) 2097 U/L (16-63) Alkaline Phosphatase 83 U/L (46-116) Total Protein 5.7 g/dL (6.4-8.2) Albumin 2.7 g/dL (3.4-5.0) Albumin/Globulin Ratio 0.9 (1.0-1.7) Test 02/05/19 13:25 02/05/19 20:30 02/05/19 20:38 02/06/19 02:00 Heparin Anti-Xa Act, Unfractionated 0.26 IU/mL (0.30-0.70) 0.19 IU/mL (0.30-0.70) 0.29 IU/mL (0.30-0.70) Glucose (Fingerstick) 94 mg/dL (70-99) Test 02/06/19 05:35 02/06/19 06:35 02/06/19 08:45 02/06/19 10:10 White Blood Count 7.4 x10^3/uL (4.0-11.0) Red Blood Count 3.12 x10^6/uL (4.30-5.70) Hemoglobin 9.7 g/dL (13.0-17.5) Hematocrit 29.2 % (39.0-53.0) Mean Corpuscular Volume 94 fL (79-100) Mean Corpuscular Hemoglobin 31 pg (25-35) Mean Corpuscular Hemoglobin Concent 33 g/dL (31-37) Red Cell Distribution Width 14.2 % (11.5-14.5) Platelet Count 265 x10^3/uL (140-400) Neutrophils (%) (Auto) 78 % (31-73) Lymphocytes (%) (Auto) 12 % (24-48) Monocytes (%) (Auto) 8 % (0-9) Eosinophils (%) (Auto) 2 % (0-3) Basophils (%) (Auto) 1 % (0-3) Neutrophils # (Auto) 5.7 x10^3uL (1.8-7.7) Lymphocytes # (Auto) 0.9 x10^3/uL (1.0-4.8) Monocytes # (Auto) 0.6 x10^3/uL (0.0-1.1) Eosinophils # (Auto) 0.2 x10^3/uL (0.0-0.7) Basophils # (Auto) 0.1 x10^3/uL (0.0-0.2) Sodium Level 141 mmol/L (136-145) Potassium Level 3.4 mmol/L (3.5-5.1) Chloride Level 105 mmol/L (98-107) Carbon Dioxide Level 26 mmol/L (21-32) Anion Gap 10 (6-14) Blood Urea Nitrogen 23 mg/dL (8-26) Creatinine 0.8 mg/dL (0.7-1.3) Estimated GFR (Cockcroft-Gault) 98.6 BUN/Creatinine Ratio 29 (6-20) Glucose Level 122 mg/dL (70-99) Calcium Level 7.9 mg/dL (8.5-10.1) Total Bilirubin 0.2 mg/dL (0.2-1.0) Aspartate Amino Transf (AST/SGOT) 1170 U/L (15-37) Alanine Aminotransferase (ALT/SGPT) 1770 U/L (16-63) Alkaline Phosphatase 76 U/L (46-116) Troponin I Quantitative 1.177 ng/mL (0.000-0.055) Total Protein 5.8 g/dL (6.4-8.2) Albumin 2.4 g/dL (3.4-5.0) Albumin/Globulin Ratio 0.7 (1.0-1.7) Heparin Anti-Xa Act, Unfractionated 0.29 IU/mL (0.30-0.70) O2 Saturation 96 % (92-99) 92 % (92-99) Arterial Blood pH 7.40 (7.35-7.45) 7.39 (7.35-7.45) Arterial Blood pCO2 at Patient Temp 41 mmHg (35-46) 41 mmHg (35-46) Arterial Blood pO2 at Patient Temp 93 mmHg (65-108) 71 mmHg (65-108) Arterial Blood HCO3 25 mmol/L (21-28) 24 mmol/L (21-28) Arterial Blood Base Excess 0 mmol/L (-3-3) -1 mmol/L (-3-3) FiO2 40 30 Laboratory Tests Test 02/05/19 20:30 02/05/19 20:38 02/06/19 02:00 02/06/19 05:35 Heparin Anti-Xa Act, Unfractionated 0.19 IU/mL (0.30-0.70) 0.29 IU/mL (0.30-0.70) Glucose (Fingerstick) 94 mg/dL (70-99) White Blood Count 7.4 x10^3/uL (4.0-11.0) Red Blood Count 3.12 x10^6/uL (4.30-5.70) Hemoglobin 9.7 g/dL (13.0-17.5) Hematocrit 29.2 % (39.0-53.0) Mean Corpuscular Volume 94 fL (79-100) Mean Corpuscular Hemoglobin 31 pg (25-35) Mean Corpuscular Hemoglobin Concent 33 g/dL (31-37) Red Cell Distribution Width 14.2 % (11.5-14.5) Platelet Count 265 x10^3/uL (140-400) Neutrophils (%) (Auto) 78 % (31-73) Lymphocytes (%) (Auto) 12 % (24-48) Monocytes (%) (Auto) 8 % (0-9) Eosinophils (%) (Auto) 2 % (0-3) Basophils (%) (Auto) 1 % (0-3) Neutrophils # (Auto) 5.7 x10^3uL (1.8-7.7) Lymphocytes # (Auto) 0.9 x10^3/uL (1.0-4.8) Monocytes # (Auto) 0.6 x10^3/uL (0.0-1.1) Eosinophils # (Auto) 0.2 x10^3/uL (0.0-0.7) Basophils # (Auto) 0.1 x10^3/uL (0.0-0.2) Sodium Level 141 mmol/L (136-145) Potassium Level 3.4 mmol/L (3.5-5.1) Chloride Level 105 mmol/L (98-107) Carbon Dioxide Level 26 mmol/L (21-32) Anion Gap 10 (6-14) Blood Urea Nitrogen 23 mg/dL (8-26) Creatinine 0.8 mg/dL (0.7-1.3) Estimated GFR (Cockcroft-Gault) 98.6 BUN/Creatinine Ratio 29 (6-20) Glucose Level 122 mg/dL (70-99) Calcium Level 7.9 mg/dL (8.5-10.1) Total Bilirubin 0.2 mg/dL (0.2-1.0) Aspartate Amino Transf (AST/SGOT) 1170 U/L (15-37) Alanine Aminotransferase (ALT/SGPT) 1770 U/L (16-63) Alkaline Phosphatase 76 U/L (46-116) Troponin I Quantitative 1.177 ng/mL (0.000-0.055) Total Protein 5.8 g/dL (6.4-8.2) Albumin 2.4 g/dL (3.4-5.0) Albumin/Globulin Ratio 0.7 (1.0-1.7) Test 02/06/19 06:35 02/06/19 08:45 02/06/19 10:10 Heparin Anti-Xa Act, Unfractionated 0.29 IU/mL (0.30-0.70) O2 Saturation 96 % (92-99) 92 % (92-99) Arterial Blood pH 7.40 (7.35-7.45) 7.39 (7.35-7.45) Arterial Blood pCO2 at Patient Temp 41 mmHg (35-46) 41 mmHg (35-46) Arterial Blood pO2 at Patient Temp 93 mmHg (65-108) 71 mmHg (65-108) Arterial Blood HCO3 25 mmol/L (21-28) 24 mmol/L (21-28) Arterial Blood Base Excess 0 mmol/L (-3-3) -1 mmol/L (-3-3) FiO2 40 30 Microbiology 02/04/19 Blood Culture - Preliminary, Resulted NO GROWTH AFTER 1 DAY Medications Current Medications Sodium Chloride 1,000 ml @ 1,000 mls/hr 1X ONCE IV Last administered on at 15:03; Start 02/04/19 at 15:15; Stop 02/04/19 at 16:14; Status DC Midazolam HCl (Versed) 2 mg 1X ONCE IV Last administered on 02/04/19at 15:05; Start 02/04/19 at 15:15; Stop 02/04/19 at 15:16; Status DC Piperacillin Sod/ Tazobactam Sod (Zosyn Per Pharmacy) 1 each PRN DAILY PRN MC SEE COMMENTS; Start 02/04/19 at 15:15 Fentanyl Citrate (Fentanyl 2ml Vial) 50 mcg 1X ONCE IV ; Start 02/04/19 at 15: 15; Stop 02/04/19 at 15:16; Status DC Piperacillin Sod/ Tazobactam Sod 4.5 gm/Sodium Chloride 100 ml @ 200 mls/hr 1X ONCE IV Last administered on 02/04/19at 15:33; Start 02/04/19 at 16:00; Stop 02/04/19 at 16:29; Status DC Etomidate (Amidate) 20 mg STK-MED ONCE IV ; Start 02/04/19 at 15:22; Stop at 15:23; Status DC Naloxone HCl (Narcan) 2 mg STK-MED ONCE .ROUTE ; Start 02/04/19 at 15:22; Stop 02/04/19 at 15:23; Status DC Rocuronium [place] (Zemuron) 50 mg STK-MED ONCE .ROUTE ; Start 02/04/19 at 15:23 ; Stop 02/04/19 at 15:24; Status DC Propofol (Diprivan) 200 mg 1X ONCE IV Last administered on 02/04/19at 16:10; Start 02/04/19 at 15:45; Stop 02/04/19 at 15:46; Status DC Sodium Chloride 1,000 ml @ 1,000 mls/hr 1X ONCE IV Last administered on at 16:05; Start 02/04/19 at 16:00; Stop 02/04/19 at 16:59; Status DC Aspirin (Aspirin) 300 mg 1X STAT [place] Last administered on 02/04/19at 17:11; Start 02/04/19 at 15:52; Stop 02/04/19 at 15:55; Status DC Sodium Bicarbonate (Sodium Bicarb Adult 8.4% Syr) 50 meq 1X ONCE IV Last administered on 02/04/19at 17:11; Start 02/04/19 at 16:00; Stop 02/04/19 at 16:01 ; Status DC Levetiracetam 1000 mg/Dextrose 110 ml @ 440 mls/hr 1X ONCE IV Last administered on 02/04/19at 16:54; Start 02/04/19 at 16:00; Stop 02/04/19 at 16:14 ; Status DC Calcium Gluconate (Calcium Gluconate) 1,000 mg 1X ONCE IVP Last administered on 02/04/19at 17:01; Start 02/04/19 at 16:00; Stop 02/04/19 at 16:01; Status DC Propofol 50 ml @ As Directed STK-MED ONCE IV ; Start 02/04/19 at 16:05; Stop at 16:06; Status DC Sodium Chloride 1,000 ml @ 125 mls/hr Q8H IV Last administered on 02/05/19at 07 :12; Start 02/04/19 at 16:09; Stop 02/05/19 at 15:19; Status DC Piperacillin Sod/ Tazobactam Sod 3.375 gm/Sodium Chloride 50 ml @ 100 mls/hr Q6HRS IV Last administered on 02/06/19at 12:11; Start 02/05/19 at 00:00 Etomidate (Amidate) 20 mg 1X ONCE IV Last administered on 02/04/19at 15:00; Start 02/04/19 at 16:45; Stop 02/04/19 at 16:46; Status DC Rocuronium [place] (Zemuron) 100 mg 1X ONCE IV Last administered on 02/04/19at 15:00; Start 02/04/19 at 16:45; Stop 02/04/19 at 16:46; Status DC Naloxone HCl (Narcan) 2 mg 1X ONCE IV Last administered on 02/04/19at 14:57; Start 02/04/19 at 16:45; Stop 02/04/19 at 16:46; Status DC Norepinephrine Bitartrate 250 ml @ 1.875 mls/ hr CONT PRN IV SEE I/O RECORD; Start 02/04/19 at 17:30 Dopamine HCl/ Dextrose 250 ml @ As Directed STK-MED ONCE IV ; Start 02/04/19 at 17:25; Stop 02/04/19 at 17:26; Status DC Fentanyl Citrate (Fentanyl 2ml Vial) 50 mcg 1X ONCE IV ; Start 02/04/19 at 17: 45; Stop 02/04/19 at 17:46; Status DC Midazolam HCl (Versed) 2 mg 1X ONCE IV ; Start 02/04/19 at 17:45; Stop at 17:46; Status DC Propofol 100 ml @ As Directed STK-MED ONCE IV ; Start 02/04/19 at 18:45; Stop 02/04/19 at 18:46; Status DC Propofol 100 ml @ 1.905 mls/ hr CONT PRN IV SEE I/O RECORD; Start 02/04/19 at 18:45 Fentanyl Citrate 30 ml @ 0 mls/hr CONT PRN IV SEE PROTOCOL Last administered on 02/06/19at 05:36; Start 02/04/19 at 19:45 Midazolam HCl 100 ml @ 0 mls/hr CONT PRN IV SEE PROTOCOL Last administered on at 01:52; Start 02/04/19 at 19:45 Heparin Sodium/ Dextrose 500 ml @ 0 mls/hr CONT PRN IV SEE I/O RECORD Last administered on 02/06/19at 01:53; Start 02/04/19 at 22:45; Stop 02/06/19 at 12:32 ; Status DC Info (Anti-Coagulation Monitoring By Pharmacy) 1 each PRN DAILY PRN MC SEE COMMENTS Last administered on 02/06/19at 07:57; Start 02/04/19 at 22:45; Stop at 12:34; Status DC Heparin Sodium (Porcine) (Heparin Sodium) 3,250 unit PRN Q6HRS PRN IV FOR UFH LEVEL LESS THAN 0.2 Last administered on 02/05/19at 22:31; Start 02/05/19 at 01: 30; Stop 02/06/19 at 12:32; Status DC Albuterol/ Ipratropium (Duoneb) 3 ml RTQID NEB Last administered on 02/06/19at 12:11; Start 02/05/19 at 08:00 Budesonide (Pulmicort) 0.5 mg RTBID NEB Last administered on 02/06/19at 08:33; Start 02/05/19 at 08:00 Famotidine (Pepcid Vial) 20 mg QHS IVP Last administered on 02/05/19at 20:26; Start 02/05/19 at 21:00 Sodium Chloride 1,000 ml @ 125 mls/hr Q8HRS IV ; Start 02/05/19 at 15:30; Status UNV Levetiracetam 500 mg/Dextrose 105 ml @ 420 mls/hr Q12HR IV Last administered on 02/06/19at 08:50; Start 02/05/19 at 16:30 Sodium Chloride 1,000 ml @ 125 mls/hr Q8H IV Last administered on 02/06/19at 07 :27; Start 02/05/19 at 16:00 Aspirin (Children'S Aspirin) 81 mg DAILYWBKFT PO ; Start 02/06/19 at 09:30 Potassium Chloride/Water 50 ml @ 50 mls/hr 1X ONCE IV Last administered on at 12:19; Start 02/06/19 at 12:00; Stop 02/06/19 at 12:59; Status DC Hydralazine HCl (Apresoline Inj) 10 mg PRN Q3HRS PRN IVP ELEVATED BP, SEE COMMENTS Last administered on 02/06/19at 12:13; Start 02/06/19 at 11:45 Fentanyl Citrate (Fentanyl 2ml Vial) 50 mcg PRN Q3HRS PRN IV PAIN Last administered on 02/06/19at 12:13; Start 02/06/19 at 11:45 Dexmedetomidine HCl 200 mcg/ Sodium Chloride 50 ml @ 0 mls/hr CONT PRN IV PER PROTOCOL Last administered on 02/06/19at 14:23; Start 02/06/19 at 13:30 Sodium Chloride 500 ml @ 500 mls/hr 1X PRN PRN IV SEE COMMENTS; Start at 13:30 Atropine Sulfate (ATROPINE 0.5mg SYRINGE) 0.5 mg PRN Q5MIN PRN IV SEE COMMENTS ; Start 02/06/19 at 13:30 Active Scripts Active Unasyn 3 Gm Vial (Ampicillin Sodium/Sulbactam Na) 3 Gm Vial 2 Gm IV Q4HRS 45 Days Oxycodone Hcl Immed.release (Oxycodone Hcl) 5 Mg Tablet 10 Mg PO PRN Q4HRS PRN Oxycontin (Oxycodone HCl) 15 Mg Tab.er.12h 15 Mg PO Q12HR Colace (Docusate Sodium) 100 Mg Capsule 100 Mg PO BID 30 Days Metoprolol Tartrate 25 Mg Tablet 25 Mg PO BID Reported Hydrochlorothiazide Capsule (Hydrochlorothiazide) 12.5 Mg Capsule 25 Mg PO DAILY Proair Hfa Inhaler (Albuterol Sulfate) 8.5 Gm Hfa.aer.ad 2 Puff INH PRN Q6HRS PRN Albuterol Sulfate Neb Soln (Albuterol Sulfate) 2.5 Mg/3 Ml Vial.neb 2.5 Mg NEB PRN Q4-6HRS PRN Ipratropium [place] 0.2 Mg/1 Ml Solution 0.2 Mg IH PRN Q4-6HRS PRN Zoloft (Sertraline Hcl) 100 Mg Tablet 1 Tab PO DAILY Robaxin (Methocarbamol) 500 Mg Tablet 500 Mg PO QID PRN Azelastine Hcl 6 Ml Drops 1 Drop EACHEYE PRN DAILY PRN Lisinopril 10 Mg Tablet 10 Mg PO DAILY Lasix (Furosemide) 20 Mg Tablet 20 Mg PO DAILY Tamsulosin Hcl 0.4 Mg Cap.er.24h 0.4 Mg PO DAILY Montelukast Sodium Tablet (Montelukast Sodium) 10 Mg Tablet 10 Mg PO HS Omeprazole 20 Mg Capsule.dr 20 Mg PO DAILY Topiramate 50 Mg Tablet 1 Tab PO BID Daliresp (Roflumilast) 500 Mcg Tablet 500 Mcg PO DAILY Vitals/I & O Vital Sign - Last 24 Hours 02/05/19 02/05/19 02/05/19 02/05/19 15:00 15:26 16:00 16:00 Temp 97.9 97.9 Pulse 100 91 Resp 25 25 B/P (MAP) 98/51 (67) 99/57 (71) Pulse Ox 97 97 98 O2 Delivery Ventilator Ventilator Ventilator Mechanical Ventilator 02/05/19 02/05/19 02/05/19 02/05/19 17:00 17:04 18:00 19:00 Pulse 96 98 101 Resp 25 26 26 B/P (MAP) 135/73 (93) 126/75 (92) 128/85 (99) Pulse Ox 97 97 98 98 O2 Delivery Ventilator Ventilator Ventilator Ventilator 02/05/19 02/05/19 02/05/19 02/05/19 19:49 20:00 20:00 21:00 Temp 98.6 98.6 Pulse 103 98 Resp B/P (MAP) 134/72 (92) 128/76 (93) Pulse Ox 97 99 99 O2 Delivery Ventilator Mechanical Ventilator Ventilator Ventilator 02/05/19 02/05/19 02/05/19 02/05/19 21:35 22:00 22:50 23:00 Pulse 92 89 Resp B/P (MAP) 155/91 (112) 140/73 (95) Pulse Ox 97 99 98 98 O2 Delivery Ventilator Ventilator Ventilator Ventilator 02/05/19 02/05/19 02/05/19 02/06/19 23:18 23:59 23:59 01:00 Temp 99.0 99.0 Pulse 91 84 Resp B/P (MAP) 127/72 (90) 136/84 (101) Pulse Ox 98 100 100 O2 Delivery Ventilator Ventilator Mechanical Ventilator Ventilator 02/06/19 02/06/19 02/06/19 02/06/19 01:31 02:00 03:00 04:00 Pulse 94 84 B/P (MAP) 141/83 (102) 129/72 (91) Pulse Ox 98 100 99 O2 Delivery Ventilator Ventilator Ventilator Mechanical Ventilator 02/06/19 02/06/19 02/06/19 02/06/19 04:00 04:17 04:55 05:36 Temp 98.4 98.4 Pulse 88 88 Resp B/P (MAP) 115/73 (87) 121/74 (90) Pulse Ox 99 98 100 100 O2 Delivery Ventilator Ventilator Ventilator Ventilator O2 Flow Rate 15.0 02/06/19 02/06/19 02/06/19 02/06/19 06:00 06:06 07:00 07:47 Temp 98.7 98.7 Pulse 91 88 Resp B/P (MAP) 118/70 (86) 144/80 (101) Pulse Ox 100 100 99 O2 Delivery Ventilator BiPAP/CPAP Ventilator Mechanical Ventilator 02/06/19 02/06/19 02/06/19 02/06/19 08:00 08:33 09:00 09:30 Pulse 88 92 Resp B/P (MAP) 109/82 (91) 118/84 (95) Pulse Ox 97 99 98 98 O2 Delivery Ventilator Ventilator Ventilator Ventilator 02/06/19 02/06/19 02/06/19/17/19 10:00 11:00 12:00 12:00 Temp 98.5 98.5 Pulse 92 113 120 Resp 25 36 35 B/P (MAP) 139/80 (99) 173/93 (119) 154/97 (116) Pulse Ox 98 96 99 O2 Delivery Ventilator Nasal Cannula Nasal Cannula Nasal Cannula O2 Flow Rate 4.0 4.0 4.0 02/06/19 02/06/19 02/06/19 02/06/19 12:05 12:13 12:13 12:30 Pulse 112 Resp 37 B/P (MAP) 152/105 Pulse Ox 99 97 99 O2 Delivery Nasal Cannula Nasal Cannula BiPAP/CPAP O2 Flow Rate 4.0 4.0 02/06/19 02/06/19 02/06/19 12:43 13:00 14:00 Pulse 130 130 Resp 35 33 33 B/P (MAP) 173/80 (111) 141/73 (95) Pulse Ox 95 95 93 O2 Delivery Nasal Cannula Nasal Cannula Nasal Cannula O2 Flow Rate 4.0 4.0 4.0 Intake and Output 02/05/19 02/05/19 02/06/19 15:00 23:00 07:00 Intake Total 100 ml 2325 ml 2458.5 ml Output Total 985 ml 1085 ml 1100 ml Balance -885 ml 1240 ml 1358.5 ml MICHELLE GRAJEDA MD Feb 06, 2019 15:04
--- NOTE | 2019-02-06 15:50 | RAD ---
Examination: Ultrasound right upper extremity venous duplex HISTORY: History of right upper extremity pain, swelling TECHNIQUE: Grayscale, color Doppler 2-D, spectral waveform analysis of the right upper extremity venous system were performed Findings/ impression: Examination is limited as patient was combative during the exam and would not extend the arm. The visualized axillary vein, brachial vein, radial vein, cephalic vein are patent with no evidence of DVT. The subclavian, internal jugular veins could not be evident on this examination due to patient positioning. There is a 7.6 x 1.5 x 2.1 cm heterogeneous echogenicity identified lateral to the axillary the region in the soft tissue, without vascular flow within, probably hematoma. Follow-up to resolution. Electronically signed by: Dimitry Hernandez MD (02/06/2019 3:47 PM) [facility]
--- NOTE | 2019-02-06 16:17 | PDOC ---
PROGRESS NOTES Assessment Problems Medical Problems: (1) Altered mental status Status: Acute (2) Elevated LFTs Status: Acute (3) Hyperkalemia Status: Acute Plan 58-year-old man with past medical history of multiple medical problems with history of obstructive sleep apnea atrial fibrillation history of back surgery, chronic obstructive pulmonary disease, congestive heart failure, atrial fibrillation, was in [facility] getting IV antibiotics patient had previously had back surgery done patient had the abscess after lumbar back surgery. Patient was on antibiotics. Patient had acute respiratory failure patient was intubated, patient also had episodes of generalized seizure activity. Patient required a loading dose of Keppra. Will continue Keppra 500 IV Q 12. No new clinical seizures noted. Patient had CT scan done on the brain which was negative for acute intracranial hemorrhage or mass. Changes noted for chronic small vessel ischemic disease, atrophy noted. MRI of lumbar spine to evaluate for acute process, MRI of brain to further evaluate for any hypoxic, anoxic injury. pending. The post surgical spine infection on antibiotics., cultures, infectious disease recommendations. Continue medical management. Plan discussed with patient's family at bedside Subjective sleepy Objective Vital Signs Date Time Temp Pulse Resp B/P (MAP) Pulse Ox O2 Delivery O2 Flow Rate FiO2 02/06/19 15:48 Nasal Cannula 02/06/19 14:00 130 33 141/73 (95) 93 4.0 02/06/19 12:00 98.5 98.5 Intake and Output 02/06/19 07:00 Intake Total 4883.5 ml Output Total 3170 ml Balance 1713.5 ml Intake IV Total 4191.5 ml Tube Feeding 692 ml Output Urine Total 3170 ml PHYSICAL EXAM PHYSICAL EXAMINATION: General: sleepy HEENT: Normal cephalic and non traumatic. Neck: No lymphadenopathy. No resistance. Cardiac: irregular rate and rhythm. Pulmonary: On vent. Abdomen: Bowel sounds are normal. NEUROLOGICAL EXAMINATION: Sedation Not orientated to time, place and person. Pupils + reaction to light stimuli. EOMI CN: No acute findings. Neck: No resistance Muscle Tone: normal Muscle Strength: minimal movements noted to stimuli DTR: 0-1 Sensory: + response to pain stimuli. Plantar Reflex: down response bilaterally Cerebellar Signs: Not able Gait: Not able Review of Relevant I have reviewed the following items valerie (where applicable) has been applied. Labs Laboratory Tests Test 02/04/19 19:45 02/04/19 19:58 02/04/19 22:30 02/05/19 04:55 Nasal Screen MRSA (PCR) Negative (Negative) Lactic Acid Level 2.0 mmol/L (0.4-2.0) Troponin I Quantitative 1.312 ng/mL (0.000-0.055) 2.514 ng/mL (0.000-0.055) O2 Saturation 96 % (92-99) 91 % (92-99) Arterial Blood pH 7.31 (7.35-7.45) 7.35 (7.35-7.45) Arterial Blood pH (Temp corrected) 7.30 Arterial Blood pCO2 at Patient Temp 43 mmHg (35-46) 37 mmHg (35-46) Arterial Blood pCO2 (Temp correct) 44 mmHg Arterial Blood pO2 at Patient Temp 91 mmHg (65-108) 67 mmHg (65-108) Arterial Blood pO2 (Temp corrected) 95 mmHg Arterial Blood HCO3 21 mmol/L (21-28) 20 mmol/L (21-28) Arterial Blood Base Excess -5 mmol/L (-3-3) -5 mmol/L (-3-3) FiO2 70 50 Test 02/05/19 05:00 02/05/19 06:00 02/05/19 09:39 02/05/19 13:25 White Blood Count 8.8 x10^3/uL (4.0-11.0) Red Blood Count 3.46 x10^6/uL (4.30-5.70) Hemoglobin 10.8 g/dL (13.0-17.5) Hematocrit 32.6 % (39.0-53.0) Mean Corpuscular Volume 94 fL (79-100) Mean Corpuscular Hemoglobin 31 pg (25-35) Mean Corpuscular Hemoglobin Concent 33 g/dL (31-37) Red Cell Distribution Width 14.3 % (11.5-14.5) Platelet Count 309 x10^3/uL (140-400) Heparin Anti-Xa Act, Unfractionated < 0.10 IU/mL (0.30-0.70) 0.26 IU/mL (0.30-0.70) Sodium Level 142 mmol/L (136-145) Potassium Level 4.8 mmol/L (3.5-5.1) Chloride Level 104 mmol/L (98-107) Carbon Dioxide Level 23 mmol/L (21-32) Anion Gap 15 (6-14) Blood Urea Nitrogen 35 mg/dL (8-26) Creatinine 2.2 mg/dL (0.7-1.3) Estimated GFR (Cockcroft-Gault) 30.7 BUN/Creatinine Ratio 16 (6-20) Glucose Level 112 mg/dL (70-99) Calcium Level 8.3 mg/dL (8.5-10.1) Total Bilirubin 0.2 mg/dL (0.2-1.0) Aspartate Amino Transf (AST/SGOT) 2453 U/L (15-37) Alanine Aminotransferase (ALT/SGPT) 2097 U/L (16-63) Alkaline Phosphatase 83 U/L (46-116) Total Protein 5.7 g/dL (6.4-8.2) Albumin 2.7 g/dL (3.4-5.0) Albumin/Globulin Ratio 0.9 (1.0-1.7) O2 Saturation 88 % (92-99) Arterial Blood pH 7.35 (7.35-7.45) Arterial Blood pCO2 at Patient Temp 40 mmHg (35-46) Arterial Blood pO2 at Patient Temp 61 mmHg (65-108) Arterial Blood HCO3 22 mmol/L (21-28) Arterial Blood Base Excess -4 mmol/L (-3-3) FiO2 40 Test 02/05/19 20:30 02/05/19 20:38 02/06/19 02:00 02/06/19 05:35 Heparin Anti-Xa Act, Unfractionated 0.19 IU/mL (0.30-0.70) 0.29 IU/mL (0.30-0.70) Glucose (Fingerstick) 94 mg/dL (70-99) White Blood Count 7.4 x10^3/uL (4.0-11.0) Red Blood Count 3.12 x10^6/uL (4.30-5.70) Hemoglobin 9.7 g/dL (13.0-17.5) Hematocrit 29.2 % (39.0-53.0) Mean Corpuscular Volume 94 fL (79-100) Mean Corpuscular Hemoglobin 31 pg (25-35) Mean Corpuscular Hemoglobin Concent 33 g/dL (31-37) Red Cell Distribution Width 14.2 % (11.5-14.5) Platelet Count 265 x10^3/uL (140-400) Neutrophils (%) (Auto) 78 % (31-73) Lymphocytes (%) (Auto) 12 % (24-48) Monocytes (%) (Auto) 8 % (0-9) Eosinophils (%) (Auto) 2 % (0-3) Basophils (%) (Auto) 1 % (0-3) Neutrophils # (Auto) 5.7 x10^3uL (1.8-7.7) Lymphocytes # (Auto) 0.9 x10^3/uL (1.0-4.8) Monocytes # (Auto) 0.6 x10^3/uL (0.0-1.1) Eosinophils # (Auto) 0.2 x10^3/uL (0.0-0.7) Basophils # (Auto) 0.1 x10^3/uL (0.0-0.2) Sodium Level 141 mmol/L (136-145) Potassium Level 3.4 mmol/L (3.5-5.1) Chloride Level 105 mmol/L (98-107) Carbon Dioxide Level 26 mmol/L (21-32) Anion Gap 10 (6-14) Blood Urea Nitrogen 23 mg/dL (8-26) Creatinine 0.8 mg/dL (0.7-1.3) Estimated GFR (Cockcroft-Gault) 98.6 BUN/Creatinine Ratio 29 (6-20) Glucose Level 122 mg/dL (70-99) Calcium Level 7.9 mg/dL (8.5-10.1) Total Bilirubin 0.2 mg/dL (0.2-1.0) Aspartate Amino Transf (AST/SGOT) 1170 U/L (15-37) Alanine Aminotransferase (ALT/SGPT) 1770 U/L (16-63) Alkaline Phosphatase 76 U/L (46-116) Troponin I Quantitative 1.177 ng/mL (0.000-0.055) Total Protein 5.8 g/dL (6.4-8.2) Albumin 2.4 g/dL (3.4-5.0) Albumin/Globulin Ratio 0.7 (1.0-1.7) Test 02/06/19 06:35 02/06/19 08:45 02/06/19 10:10 Heparin Anti-Xa Act, Unfractionated 0.29 IU/mL (0.30-0.70) O2 Saturation 96 % (92-99) 92 % (92-99) Arterial Blood pH 7.40 (7.35-7.45) 7.39 (7.35-7.45) Arterial Blood pCO2 at Patient Temp 41 mmHg (35-46) 41 mmHg (35-46) Arterial Blood pO2 at Patient Temp 93 mmHg (65-108) 71 mmHg (65-108) Arterial Blood HCO3 25 mmol/L (21-28) 24 mmol/L (21-28) Arterial Blood Base Excess 0 mmol/L (-3-3) -1 mmol/L (-3-3) FiO2 40 30 Laboratory Tests Test 02/05/19 20:30 02/05/19 20:38 02/06/19 02:00 02/06/19 05:35 Heparin Anti-Xa Act, Unfractionated 0.19 IU/mL (0.30-0.70) 0.29 IU/mL (0.30-0.70) Glucose (Fingerstick) 94 mg/dL (70-99) White Blood Count 7.4 x10^3/uL (4.0-11.0) Red Blood Count 3.12 x10^6/uL (4.30-5.70) Hemoglobin 9.7 g/dL (13.0-17.5) Hematocrit 29.2 % (39.0-53.0) Mean Corpuscular Volume 94 fL (79-100) Mean Corpuscular Hemoglobin 31 pg (25-35) Mean Corpuscular Hemoglobin Concent 33 g/dL (31-37) Red Cell Distribution Width 14.2 % (11.5-14.5) Platelet Count 265 x10^3/uL (140-400) Neutrophils (%) (Auto) 78 % (31-73) Lymphocytes (%) (Auto) 12 % (24-48) Monocytes (%) (Auto) 8 % (0-9) Eosinophils (%) (Auto) 2 % (0-3) Basophils (%) (Auto) 1 % (0-3) Neutrophils # (Auto) 5.7 x10^3uL (1.8-7.7) Lymphocytes # (Auto) 0.9 x10^3/uL (1.0-4.8) Monocytes # (Auto) 0.6 x10^3/uL (0.0-1.1) Eosinophils # (Auto) 0.2 x10^3/uL (0.0-0.7) Basophils # (Auto) 0.1 x10^3/uL (0.0-0.2) Sodium Level 141 mmol/L (136-145) Potassium Level 3.4 mmol/L (3.5-5.1) Chloride Level 105 mmol/L (98-107) Carbon Dioxide Level 26 mmol/L (21-32) Anion Gap 10 (6-14) Blood Urea Nitrogen 23 mg/dL (8-26) Creatinine 0.8 mg/dL (0.7-1.3) Estimated GFR (Cockcroft-Gault) 98.6 BUN/Creatinine Ratio 29 (6-20) Glucose Level 122 mg/dL (70-99) Calcium Level 7.9 mg/dL (8.5-10.1) Total Bilirubin 0.2 mg/dL (0.2-1.0) Aspartate Amino Transf (AST/SGOT) 1170 U/L (15-37) Alanine Aminotransferase (ALT/SGPT) 1770 U/L (16-63) Alkaline Phosphatase 76 U/L (46-116) Troponin I Quantitative 1.177 ng/mL (0.000-0.055) Total Protein 5.8 g/dL (6.4-8.2) Albumin 2.4 g/dL (3.4-5.0) Albumin/Globulin Ratio 0.7 (1.0-1.7) Test 02/06/19 06:35 02/06/19 08:45 02/06/19 10:10 Heparin Anti-Xa Act, Unfractionated 0.29 IU/mL (0.30-0.70) O2 Saturation 96 % (92-99) 92 % (92-99) Arterial Blood pH 7.40 (7.35-7.45) 7.39 (7.35-7.45) Arterial Blood pCO2 at Patient Temp 41 mmHg (35-46) 41 mmHg (35-46) Arterial Blood pO2 at Patient Temp 93 mmHg (65-108) 71 mmHg (65-108) Arterial Blood HCO3 25 mmol/L (21-28) 24 mmol/L (21-28) Arterial Blood Base Excess 0 mmol/L (-3-3) -1 mmol/L (-3-3) FiO2 40 30 Microbiology 02/04/19 Blood Culture - Preliminary, Resulted NO GROWTH AFTER 2 DAYS Medications Current Medications Sodium Chloride 1,000 ml @ 1,000 mls/hr 1X ONCE IV Last administered on at 15:03; Start 02/04/19 at 15:15; Stop 02/04/19 at 16:14; Status DC Midazolam HCl (Versed) 2 mg 1X ONCE IV Last administered on 02/04/19at 15:05; Start 02/04/19 at 15:15; Stop 02/04/19 at 15:16; Status DC Piperacillin Sod/ Tazobactam Sod (Zosyn Per Pharmacy) 1 each PRN DAILY PRN MC SEE COMMENTS; Start 02/04/19 at 15:15 Fentanyl Citrate (Fentanyl 2ml Vial) 50 mcg 1X ONCE IV ; Start 02/04/19 at 15: 15; Stop 02/04/19 at 15:16; Status DC Piperacillin Sod/ Tazobactam Sod 4.5 gm/Sodium Chloride 100 ml @ 200 mls/hr 1X ONCE IV Last administered on 02/04/19at 15:33; Start 02/04/19 at 16:00; Stop 02/04/19 at 16:29; Status DC Etomidate (Amidate) 20 mg STK-MED ONCE IV ; Start 02/04/19 at 15:22; Stop at 15:23; Status DC Naloxone HCl (Narcan) 2 mg STK-MED ONCE .ROUTE ; Start 02/04/19 at 15:22; Stop 02/04/19 at 15:23; Status DC Rocuronium [place] (Zemuron) 50 mg STK-MED ONCE .ROUTE ; Start 02/04/19 at 15:23 ; Stop 02/04/19 at 15:24; Status DC Propofol (Diprivan) 200 mg 1X ONCE IV Last administered on 02/04/19at 16:10; Start 02/04/19 at 15:45; Stop 02/04/19 at 15:46; Status DC Sodium Chloride 1,000 ml @ 1,000 mls/hr 1X ONCE IV Last administered on at 16:05; Start 02/04/19 at 16:00; Stop 02/04/19 at 16:59; Status DC Aspirin (Aspirin) 300 mg 1X STAT MD Last administered on 02/04/19at 17:11; Start 02/04/19 at 15:52; Stop 02/04/19 at 15:55; Status DC Sodium Bicarbonate (Sodium Bicarb Adult 8.4% Syr) 50 meq 1X ONCE IV Last administered on 02/04/19at 17:11; Start 02/04/19 at 16:00; Stop 02/04/19 at 16:01 ; Status DC Levetiracetam 1000 mg/Dextrose 110 ml @ 440 mls/hr 1X ONCE IV Last administered on 02/04/19at 16:54; Start 02/04/19 at 16:00; Stop 02/04/19 at 16:14 ; Status DC Calcium Gluconate (Calcium Gluconate) 1,000 mg 1X ONCE IVP Last administered on 02/04/19at 17:01; Start 02/04/19 at 16:00; Stop 02/04/19 at 16:01; Status DC Propofol 50 ml @ As Directed STK-MED ONCE IV ; Start 02/04/19 at 16:05; Stop at 16:06; Status DC Sodium Chloride 1,000 ml @ 125 mls/hr Q8H IV Last administered on 02/05/19at 07 :12; Start 02/04/19 at 16:09; Stop 02/05/19 at 15:19; Status DC Piperacillin Sod/ Tazobactam Sod 3.375 gm/Sodium Chloride 50 ml @ 100 mls/hr Q6HRS IV Last administered on 02/06/19at 12:11; Start 02/05/19 at 00:00 Etomidate (Amidate) 20 mg 1X ONCE IV Last administered on 02/04/19at 15:00; Start 02/04/19 at 16:45; Stop 02/04/19 at 16:46; Status DC Rocuronium [place] (Zemuron) 100 mg 1X ONCE IV Last administered on 02/04/19at 15:00; Start 02/04/19 at 16:45; Stop 02/04/19 at 16:46; Status DC Naloxone HCl (Narcan) 2 mg 1X ONCE IV Last administered on 02/04/19at 14:57; Start 02/04/19 at 16:45; Stop 02/04/19 at 16:46; Status DC Norepinephrine Bitartrate 250 ml @ 1.875 mls/ hr CONT PRN IV SEE I/O RECORD; Start 02/04/19 at 17:30 Dopamine HCl/ Dextrose 250 ml @ As Directed STK-MED ONCE IV ; Start 02/04/19 at 17:25; Stop 02/04/19 at 17:26; Status DC Fentanyl Citrate (Fentanyl 2ml Vial) 50 mcg 1X ONCE IV ; Start 02/04/19 at 17: 45; Stop 02/04/19 at 17:46; Status DC Midazolam HCl (Versed) 2 mg 1X ONCE IV ; Start 02/04/19 at 17:45; Stop at 17:46; Status DC Propofol 100 ml @ As Directed STK-MED ONCE IV ; Start 02/04/19 at 18:45; Stop 02/04/19 at 18:46; Status DC Propofol 100 ml @ 1.905 mls/ hr CONT PRN IV SEE I/O RECORD; Start 02/04/19 at 18:45 Fentanyl Citrate 30 ml @ 0 mls/hr CONT PRN IV SEE PROTOCOL Last administered on 02/06/19at 05:36; Start 02/04/19 at 19:45 Midazolam HCl 100 ml @ 0 mls/hr CONT PRN IV SEE PROTOCOL Last administered on at 01:52; Start 02/04/19 at 19:45 Heparin Sodium/ Dextrose 500 ml @ 0 mls/hr CONT PRN IV SEE I/O RECORD Last administered on 02/06/19at 01:53; Start 02/04/19 at 22:45; Stop 02/06/19 at 12:32 ; Status DC Info (Anti-Coagulation Monitoring By Pharmacy) 1 each PRN DAILY PRN MC SEE COMMENTS Last administered on 02/06/19at 07:57; Start 02/04/19 at 22:45; Stop at 12:34; Status DC Heparin Sodium (Porcine) (Heparin Sodium) 3,250 unit PRN Q6HRS PRN IV FOR UFH LEVEL LESS THAN 0.2 Last administered on 02/05/19at 22:31; Start 02/05/19 at 01: 30; Stop 02/06/19 at 12:32; Status DC Albuterol/ Ipratropium (Duoneb) 3 ml RTQID NEB Last administered on 02/06/19at 12:11; Start 02/05/19 at 08:00 Budesonide (Pulmicort) 0.5 mg RTBID NEB Last administered on 02/06/19at 08:33; Start 02/05/19 at 08:00 Famotidine (Pepcid Vial) 20 mg QHS IVP Last administered on 02/05/19at 20:26; Start 02/05/19 at 21:00 Sodium Chloride 1,000 ml @ 125 mls/hr Q8HRS IV ; Start 02/05/19 at 15:30; Status UNV Levetiracetam 500 mg/Dextrose 105 ml @ 420 mls/hr Q12HR IV Last administered on 02/06/19at 08:50; Start 02/05/19 at 16:30 Sodium Chloride 1,000 ml @ 125 mls/hr Q8H IV Last administered on 02/06/19at 07 :27; Start 02/05/19 at 16:00 Aspirin (Children'S Aspirin) 81 mg DAILYWBKFT PO ; Start 02/06/19 at 09:30 Potassium Chloride/Water 50 ml @ 50 mls/hr 1X ONCE IV Last administered on at 12:19; Start 02/06/19 at 12:00; Stop 02/06/19 at 12:59; Status DC Hydralazine HCl (Apresoline Inj) 10 mg PRN Q3HRS PRN IVP ELEVATED BP, SEE COMMENTS Last administered on 02/06/19at 12:13; Start 02/06/19 at 11:45 Fentanyl Citrate (Fentanyl 2ml Vial) 50 mcg PRN Q3HRS PRN IV PAIN Last administered on 02/06/19at 15:48; Start 02/06/19 at 11:45 Dexmedetomidine HCl 200 mcg/ Sodium Chloride 50 ml @ 0 mls/hr CONT PRN IV PER PROTOCOL Last administered on 02/06/19at 15:48; Start 02/06/19 at 13:30 Sodium Chloride 500 ml @ 500 mls/hr 1X PRN PRN IV SEE COMMENTS; Start at 13:30 Atropine Sulfate (ATROPINE 0.5mg SYRINGE) 0.5 mg PRN Q5MIN PRN IV SEE COMMENTS ; Start 02/06/19 at 13:30 Active Scripts Active Unasyn 3 Gm Vial (Ampicillin Sodium/Sulbactam Na) 3 Gm Vial 2 Gm IV Q4HRS 45 Days Oxycodone Hcl Immed.release (Oxycodone Hcl) 5 Mg Tablet 10 Mg PO PRN Q4HRS PRN Oxycontin (Oxycodone HCl) 15 Mg Tab.er.12h 15 Mg PO Q12HR Colace (Docusate Sodium) 100 Mg Capsule 100 Mg PO BID 30 Days Metoprolol Tartrate 25 Mg Tablet 25 Mg PO BID Reported Hydrochlorothiazide Capsule (Hydrochlorothiazide) 12.5 Mg Capsule 25 Mg PO DAILY Proair Hfa Inhaler (Albuterol Sulfate) 8.5 Gm Hfa.aer.ad 2 Puff INH PRN Q6HRS PRN Albuterol Sulfate Neb Soln (Albuterol Sulfate) 2.5 Mg/3 Ml Vial.neb 2.5 Mg NEB PRN Q4-6HRS PRN Ipratropium [place] 0.2 Mg/1 Ml Solution 0.2 Mg IH PRN Q4-6HRS PRN Zoloft (Sertraline Hcl) 100 Mg Tablet 1 Tab PO DAILY Robaxin (Methocarbamol) 500 Mg Tablet 500 Mg PO QID PRN Azelastine Hcl 6 Ml Drops 1 Drop EACHEYE PRN DAILY PRN Lisinopril 10 Mg Tablet 10 Mg PO DAILY Lasix (Furosemide) 20 Mg Tablet 20 Mg PO DAILY Tamsulosin Hcl 0.4 Mg Cap.er.24h 0.4 Mg PO DAILY Montelukast Sodium Tablet (Montelukast Sodium) 10 Mg Tablet 10 Mg PO HS Omeprazole 20 Mg Capsule.dr 20 Mg PO DAILY Topiramate 50 Mg Tablet 1 Tab PO BID Daliresp (Roflumilast) 500 Mcg Tablet 500 Mcg PO DAILY Vitals/I & O Vital Sign - Last 24 Hours 02/05/19 02/05/19 02/05/19 02/05/19 17:00 17:04 18:00 19:00 Pulse 96 98 101 Resp 25 26 26 B/P (MAP) 135/73 (93) 126/75 (92) 128/85 (99) Pulse Ox 97 97 98 98 O2 Delivery Ventilator Ventilator Ventilator Ventilator 3/16/19 3/16/19 3/16/19 3/16/19 19:49 20:00 20:00 21:00 Temp 98.6 98.6 Pulse 103 98 Resp B/P (MAP) 134/72 (92) 128/76 (93) Pulse Ox 97 99 99 O2 Delivery Ventilator Mechanical Ventilator Ventilator Ventilator 02/05/19 02/05/19 02/05/19 02/05/19 21:35 22:00 22:50 23:00 Pulse 92 89 Resp B/P (MAP) 155/91 (112) 140/73 (95) Pulse Ox 97 99 98 98 O2 Delivery Ventilator Ventilator Ventilator Ventilator 02/05/19 02/05/19 02/05/19 02/06/19 23:18 23:59 23:59 01:00 Temp 99.0 99.0 Pulse 91 84 Resp B/P (MAP) 127/72 (90) 136/84 (101) Pulse Ox 98 100 100 O2 Delivery Ventilator Ventilator Mechanical Ventilator Ventilator 02/06/19 02/06/19 02/06/19 02/06/19 01:31 02:00 03:00 04:00 Pulse 94 84 Resp B/P (MAP) 141/83 (102) 129/72 (91) Pulse Ox 98 100 99 O2 Delivery Ventilator Ventilator Ventilator Mechanical Ventilator 02/06/19 02/06/19 02/06/19 02/06/19 04:00 04:17 04:55 05:36 Temp 98.4 98.4 Pulse 88 88 Resp B/P (MAP) 115/73 (87) 121/74 (90) Pulse Ox 99 98 100 100 O2 Delivery Ventilator Ventilator Ventilator Ventilator O2 Flow Rate 15.0 02/06/19 02/06/19 02/06/19 02/06/19 06:00 06:06 07:00 07:47 Temp 98.7 98.7 Pulse 91 88 Resp B/P (MAP) 118/70 (86) 144/80 (101) Pulse Ox 100 100 99 O2 Delivery Ventilator BiPAP/CPAP Ventilator Mechanical Ventilator 02/06/19 02/06/19 02/06/19 02/06/19 08:00 08:33 09:00 09:30 Pulse 88 92 Resp B/P (MAP) 109/82 (91) 118/84 (95) Pulse Ox 97 99 98 98 O2 Delivery Ventilator Ventilator Ventilator Ventilator 02/06/19 02/06/19 02/06/19 02/06/19 10:00 11:00 12:00 12:00 Temp 98.5 98.5 Pulse 92 113 120 Resp 25 36 35 B/P (MAP) 139/80 (99) 173/93 (119) 154/97 (116) Pulse Ox 98 96 99 O2 Delivery Ventilator Nasal Cannula Nasal Cannula Nasal Cannula O2 Flow Rate 4.0 4.0 4.0 02/06/19 02/06/19 02/06/19 02/06/19 12:05 12:13 12:13 12:30 Pulse 112 Resp 37 B/P (MAP) 152/105 Pulse Ox 99 97 99 O2 Delivery Nasal Cannula Nasal Cannula BiPAP/CPAP O2 Flow Rate 4.0 4.0 02/06/19 02/06/19 02/06/19 02/06/19 12:43 13:00 14:00 15:48 Pulse 130 130 Resp 35 33 33 B/P (MAP) 173/80 (111) 141/73 (95) Pulse Ox 95 95 93 O2 Delivery Nasal Cannula Nasal Cannula Nasal Cannula Nasal Cannula O2 Flow Rate 4.0 4.0 4.0 Intake and Output 02/05/19 02/05/19 02/06/19 15:00 23:00 07:00 Intake Total 100 ml 2325 ml 2458.5 ml Output Total 985 ml 1085 ml 1100 ml Balance -885 ml 1240 ml 1358.5 ml FOREIGN EDWARD MD Feb 06, 2019 16:17
[2019-02-06 16:22] LABS: BASE EXCESS ABG -2 mmol/L (-3-3); HCO3 ABG 23 mmol/L (21-28); PCO2 ABG 40 mmHg (35-46); PO2 ABG 67 mmHg (65-108); SAT O2 ABG 91 % (92-99)
[2019-02-06 16:29] LABS: FIO2 ABG 36
[2019-02-06] MEDS ORDERED: HALOPERIDOL LACTATE 5 MG/ML VIAL. IVP PRN (16:30)
[2019-02-06] MEDS: HALOPERIDOL LACTATE 5 MG/ML VIAL. IVP PRN (16:59)
[2019-02-06] MEDS: FAMOTIDINE 20 MG/2 ML VIAL IVP SCH (21:14)
[2019-02-07] VITALS (24 sets, daily range): BP systolic 129–182; BP diastolic 65–120
[2019-02-07] MEDS: IV NORMAL SALINE 1000ML BAG 1,000 ML IV SCH
[2019-02-07] MEDS: PIPERACILLIN/TAZOBACTAM 3.375 GM in IV NORMAL SALINE 50ML 50 ML IV SCH ×4 (00:03→17:50)
[2019-02-07] MEDS: DEXMEDETOMIDINE 200 MCG in IV NORMAL SALINE 50ML 48 ML IV PRN ×21 (00:04→23:13)
[2019-02-07] MEDS: fentaNYL PF VIAL 100 MCG/2 ML VIAL IV PRN ×7 (00:04→23:13)
[2019-02-07] MEDS ORDERED: ALBUTEROL SULFATE 2.5 MG/3 ML NEBU. NEB ONE (02:15)
[2019-02-07] MEDS: HALOPERIDOL LACTATE 5 MG/ML VIAL. IVP PRN (07:04)
--- NOTE | 2019-02-07 07:28 | PDOC ---
Infectious Disease Note Subjective Subjective sedated, sleepy ROS ROS no n/v/d/sob/fever Vital Sign Vital Signs Vital Signs Date Time Temp Pulse Resp B/P (MAP) Pulse Ox O2 Delivery O2 Flow Rate FiO2 02/07/19 06:59 34 94 Nasal Cannula 2.0 02/07/19 06:00 89 157/93 (114) 02/07/19 04:00 98.1 98.1 Physical Exam PHYSICAL EXAM GENERAL: extubated HEENT: ETT and OGT in place. LUNGS: Diminished aeration. HEART: S1 and S2. ABDOMEN: Obese, soft. No grimace or guarding to palpation, with bowel sounds present. GENITOURINARY: Strat[place] in place. EXTREMITIES: Generalized trace edema. No cyanosis. SKIN: Warm, without rash. NEUROLOGIC: Arouses easily to name, PIV Labs Lab Laboratory Tests Test 02/06/19 08:45 02/06/19 10:10 02/06/19 15:53 O2 Saturation 96 % (92-99) 92 % (92-99) 91 % (92-99) Arterial Blood pH 7.40 (7.35-7.45) 7.39 (7.35-7.45) 7.38 (7.35-7.45) Arterial Blood pCO2 at Patient Temp 41 mmHg (35-46) 41 mmHg (35-46) 40 mmHg (35-46) Arterial Blood pO2 at Patient Temp 93 mmHg (65-108) 71 mmHg (65-108) 67 mmHg (65-108) Arterial Blood HCO3 25 mmol/L (21-28) 24 mmol/L (21-28) 23 mmol/L (21-28) Arterial Blood Base Excess 0 mmol/L (-3-3) -1 mmol/L (-3-3) -2 mmol/L (-3-3) FiO2 40 30 36 Micro Microbiology 02/04/19 Blood Culture - Preliminary, Resulted NO GROWTH AFTER 2 DAYS Objective Assessment 1. Sepsis ??, likely had dehydration and too much pain meds 2. Fever. 3. Suspect aspiration. 4. Post-surgical spine infection with epidural abscess, status post incision and drainage on 12/30/2018, with growth of Enterococcus, ampicillin sensitive. He was undergoing a treatment with ampicillin prior to this admission. His original back surgery was on 12/09/2018. Recent sed rate from 01/31/2019 was 25. 5. Acute respiratory failure. 6. Acute encephalopathy. 7. Non-ST elevation myocardial infarction. 8. Acute kidney injury. 9. Shock liver. 10. Myoclonic movements, on Keppra. 11. Hypertension. 12. Atrial fibrillation. 13. Obstructive sleep apnea. 14. Morbid obesity. 15. Chronic obstructive pulmonary disease. Plan Plan of Care Continue Zosyn for suspected aspiration and continual tx for spinal infection f/u cultures Monitor labs/VS/temp Supportive care awaiting MRI lumbar spine when stable D/w nursing KOKO JONES MD Feb 07, 2019 07:28
[2019-02-07] MEDS: ASPIRIN CHEWABLE 81 MG TABLET. PO SCH (08:00)
[2019-02-07] MEDS: IPRATRPIUM/ALBUTEROL 0.5/2.5MG 3 ML NEBU. NEB SCH ×4 (09:05→19:27)
[2019-02-07] MEDS: BUDESONIDE 0.5 MG/2 ML NEBU. NEB SCH ×2 (09:08→19:27)
[2019-02-07] MEDS: levETIRAcetam 500 MG in IV DEXTROSE 5% 100ML 100 ML IV SCH ×2 (09:18→20:35)
[2019-02-07] MEDS: AMINO AC 3%/ELECTROLYTE/GLYCER 1,000 ML IV SCH ×2 (09:19→20:35)
[2019-02-07 09:21] LABS: BASO % 1 % (0-3); EOS # 0.1 x10^3/uL (0.0-0.7); EOS % 1 % (0-3); HEMATOCRIT 30.2 % (39.0-53.0); LYMPH # 0.5 x10^3/uL (1.0-4.8); LYMPH % 5 % (24-48); MEAN CORPUSCULAR HEMOGLOBIN 31 pg (25-35); MEAN CORPUSCULAR HGB CONC 33 g/dL (31-37); MEAN CORPUSCULAR VOLUME 94 fL (79-100); MONO # 0.8 x10^3/uL (0.0-1.1); MONO % 9 % (0-9); NEUT # 7.4 x10^3uL (1.8-7.7); NEUT % 84 % (31-73); PLATELET COUNT 227 x10^3/uL (140-400); RED CELL DISTRIBUTION WIDTH 14.1 % (11.5-14.5); WHITE BLOOD COUNT 8.9 x10^3/uL (4.0-11.0)
[2019-02-07 09:22] LABS: BASE EXCESS ABG -2 mmol/L (-3-3); HCO3 ABG 25 mmol/L (21-28); PCO2 ABG 56 mmHg (35-46); PO2 ABG 71 mmHg (65-108); SAT O2 ABG 91 % (92-99)
[2019-02-07 09:25] LABS: FIO2 ABG 32
[2019-02-07 09:39] LABS: ALBUMIN 2.8 g/dL (3.4-5.0); ALBUMIN/GLOBULIN RATIO 0.7 (1.0-1.7); CALCIUM 8.4 mg/dL (8.5-10.1); CREATININE 0.7 mg/dL (0.7-1.3); POTASSIUM 4.4 mmol/L (3.5-5.1); TOTAL BILIRUBIN 0.7 mg/dL (0.2-1.0); TOTAL PROTEIN 6.6 g/dL (6.4-8.2)
--- NOTE | 2019-02-07 10:10 | CARD ---
MR#: [id number] Date of Study: 02/06/2019 Ordering Physician: TONIO NI, Referring Physician: Benito ARRIOLA: Beatriz Lin APPROVED REPORT EXAM: Two-dimensional and M-mode echocardiogram with Doppler and color Doppler. Other Information Quality : LimitedHR: 117bpm INDICATION Respiratory Failure RISK FACTORS Hypertension Smoking 2D DIMENSIONS RVDd4.2 (2.9-3.5cm)Left Atrium(2D)5.0 (1.6-4.0cm) IVSd1.5 (0.7-1.1cm)Aortic Root(2D)3.5 (2.0-3.7cm) LVDd5.4 (3.9-5.9cm)PWd1.4 (0.7-1.1cm) LVDs3.9 (2.5-4.0cm)FS (%) 26.8 % SV72.8 mlLVEF(%)51.8 (>50%) LEFT VENTRICLE The left ventricle is normal size. There is mild concentric left ventricular hypertrophy. The left ve ntricle is hyperdynamic. EF 65% There is normal LV segmental wall motion. RIGHT VENTRICLE The right ventricle is mildly to moderately dilated. There is normal right ventricular wall thickness . The right ventricular systolic function is normal. ATRIA The left atrium is moderately dilated. The right atrium is moderately dilated. AORTIC VALVE The aortic valve is not well visualized. TRICUSPID VALVE The tricuspid valve is not well visualized. PULMONIC VALVE The pulmonic valve is not visualized. GREAT VESSELS The aortic root is normal in size. The IVC was not visualized. PERICARDIAL EFFUSION There is a trace pericardial effusion. Critical Notification Critical Value: No <Conclusion> The left ventricle is hyperdynamic. EF 65% The right ventricle is mildly to moderately dilated. The right ventricular systolic function is normal. Limited echo for EF and wall motion only. Signed by : Tonio Ni, Electronically Approved : 02/07/2019 10:09:51
[2019-02-07] MEDS: NICOTINE 21MG PATCH. TD SCH (11:45)
[2019-02-07] MEDS ORDERED: SODIUM BICARB ADULT 8.4% 50 MEQ/50 ML DISP.SYRIN. IV ONE (11:45)
--- NOTE | 2019-02-07 11:51 | PDOC ---
PULMONARY PROGRESS NOTES Subjective extubated yesterday was very restless today despite max dose of Presidex, now on PRN ativan/ BIPAP Vitals Vital Signs Date Time Temp Pulse Resp B/P (MAP) Pulse Ox O2 Delivery O2 Flow Rate FiO2 02/07/19 11:00 67 27 170/95 (120) 98 BiPAP/CPAP 02/07/19 09:05 3.0 02/07/19 08:00 98.5 98.5 Comments r General: Lethargic HEENT: Other (nc at perrl nose clear, orally intubated, neck no lad, no thyromegaly) Lungs: Other (decrease bases) Cardiovascular: Other (irreg irreg) Abdomen: Soft, Non-tender Extremities: Other (trace edema) Skin: Warm Labs Laboratory Tests Test 02/05/19 13:25 02/05/19 20:30 02/05/19 20:38 02/06/19 02:00 Heparin Anti-Xa Act, Unfractionated 0.26 IU/mL (0.30-0.70) 0.19 IU/mL (0.30-0.70) 0.29 IU/mL (0.30-0.70) Glucose (Fingerstick) 94 mg/dL (70-99) Test 02/06/19 05:35 02/06/19 06:35 02/06/19 08:45 02/06/19 10:10 White Blood Count 7.4 x10^3/uL (4.0-11.0) Red Blood Count 3.12 x10^6/uL (4.30-5.70) Hemoglobin 9.7 g/dL (13.0-17.5) Hematocrit 29.2 % (39.0-53.0) Mean Corpuscular Volume 94 fL (79-100) Mean Corpuscular Hemoglobin 31 pg (25-35) Mean Corpuscular Hemoglobin Concent 33 g/dL (31-37) Red Cell Distribution Width 14.2 % (11.5-14.5) Platelet Count 265 x10^3/uL (140-400) Neutrophils (%) (Auto) 78 % (31-73) Lymphocytes (%) (Auto) 12 % (24-48) Monocytes (%) (Auto) 8 % (0-9) Eosinophils (%) (Auto) 2 % (0-3) Basophils (%) (Auto) 1 % (0-3) Neutrophils # (Auto) 5.7 x10^3uL (1.8-7.7) Lymphocytes # (Auto) 0.9 x10^3/uL (1.0-4.8) Monocytes # (Auto) 0.6 x10^3/uL (0.0-1.1) Eosinophils # (Auto) 0.2 x10^3/uL (0.0-0.7) Basophils # (Auto) 0.1 x10^3/uL (0.0-0.2) Sodium Level 141 mmol/L (136-145) Potassium Level 3.4 mmol/L (3.5-5.1) Chloride Level 105 mmol/L (98-107) Carbon Dioxide Level 26 mmol/L (21-32) Anion Gap 10 (6-14) Blood Urea Nitrogen 23 mg/dL (8-26) Creatinine 0.8 mg/dL (0.7-1.3) Estimated GFR (Cockcroft-Gault) 98.6 BUN/Creatinine Ratio 29 (6-20) Glucose Level 122 mg/dL (70-99) Calcium Level 7.9 mg/dL (8.5-10.1) Total Bilirubin 0.2 mg/dL (0.2-1.0) Aspartate Amino Transf (AST/SGOT) 1170 U/L (15-37) Alanine Aminotransferase (ALT/SGPT) 1770 U/L (16-63) Alkaline Phosphatase 76 U/L (46-116) Troponin I Quantitative 1.177 ng/mL (0.000-0.055) Total Protein 5.8 g/dL (6.4-8.2) Albumin 2.4 g/dL (3.4-5.0) Albumin/Globulin Ratio 0.7 (1.0-1.7) Heparin Anti-Xa Act, Unfractionated 0.29 IU/mL (0.30-0.70) O2 Saturation 96 % (92-99) 92 % (92-99) Arterial Blood pH 7.40 (7.35-7.45) 7.39 (7.35-7.45) Arterial Blood pCO2 at Patient Temp 41 mmHg (35-46) 41 mmHg (35-46) Arterial Blood pO2 at Patient Temp 93 mmHg (65-108) 71 mmHg (65-108) Arterial Blood HCO3 25 mmol/L (21-28) 24 mmol/L (21-28) Arterial Blood Base Excess 0 mmol/L (-3-3) -1 mmol/L (-3-3) FiO2 40 30 Test 02/06/19 15:53 02/07/19 09:00 02/07/19 09:05 O2 Saturation 91 % (92-99) 91 % (92-99) Arterial Blood pH 7.38 (7.35-7.45) 7.27 (7.35-7.45) Arterial Blood pCO2 at Patient Temp 40 mmHg (35-46) 56 mmHg (35-46) Arterial Blood pO2 at Patient Temp 67 mmHg (65-108) 71 mmHg (65-108) Arterial Blood HCO3 23 mmol/L (21-28) 25 mmol/L (21-28) Arterial Blood Base Excess -2 mmol/L (-3-3) -2 mmol/L (-3-3) FiO2 36 32 White Blood Count 8.9 x10^3/uL (4.0-11.0) Red Blood Count 3.20 x10^6/uL (4.30-5.70) Hemoglobin 10.0 g/dL (13.0-17.5) Hematocrit 30.2 % (39.0-53.0) Mean Corpuscular Volume 94 fL (79-100) Mean Corpuscular Hemoglobin 31 pg (25-35) Mean Corpuscular Hemoglobin Concent 33 g/dL (31-37) Red Cell Distribution Width 14.1 % (11.5-14.5) Platelet Count 227 x10^3/uL (140-400) Neutrophils (%) (Auto) 84 % (31-73) Lymphocytes (%) (Auto) 5 % (24-48) Monocytes (%) (Auto) 9 % (0-9) Eosinophils (%) (Auto) 1 % (0-3) Basophils (%) (Auto) 1 % (0-3) Neutrophils # (Auto) 7.4 x10^3uL (1.8-7.7) Lymphocytes # (Auto) 0.5 x10^3/uL (1.0-4.8) Monocytes # (Auto) 0.8 x10^3/uL (0.0-1.1) Eosinophils # (Auto) 0.1 x10^3/uL (0.0-0.7) Basophils # (Auto) 0.0 x10^3/uL (0.0-0.2) Sodium Level 143 mmol/L (136-145) Potassium Level 4.4 mmol/L (3.5-5.1) Chloride Level 108 mmol/L (98-107) Carbon Dioxide Level 26 mmol/L (21-32) Anion Gap 9 (6-14) Blood Urea Nitrogen 13 mg/dL (8-26) Creatinine 0.7 mg/dL (0.7-1.3) Estimated GFR (Cockcroft-Gault) 115.0 BUN/Creatinine Ratio 19 (6-20) Glucose Level 106 mg/dL (70-99) Calcium Level 8.4 mg/dL (8.5-10.1) Total Bilirubin 0.7 mg/dL (0.2-1.0) Aspartate Amino Transf (AST/SGOT) 558 U/L (15-37) Alanine Aminotransferase (ALT/SGPT) 1398 U/L (16-63) Alkaline Phosphatase 83 U/L (46-116) Total Protein 6.6 g/dL (6.4-8.2) Albumin 2.8 g/dL (3.4-5.0) Albumin/Globulin Ratio 0.7 (1.0-1.7) Laboratory Tests Test 02/06/19 15:53 02/07/19 09:00 02/07/19 09:05 O2 Saturation 91 % (92-99) 91 % (92-99) Arterial Blood pH 7.38 (7.35-7.45) 7.27 (7.35-7.45) Arterial Blood pCO2 at Patient Temp 40 mmHg (35-46) 56 mmHg (35-46) Arterial Blood pO2 at Patient Temp 67 mmHg (65-108) 71 mmHg (65-108) Arterial Blood HCO3 23 mmol/L (21-28) 25 mmol/L (21-28) Arterial Blood Base Excess -2 mmol/L (-3-3) -2 mmol/L (-3-3) FiO2 36 32 White Blood Count 8.9 x10^3/uL (4.0-11.0) Red Blood Count 3.20 x10^6/uL (4.30-5.70) Hemoglobin 10.0 g/dL (13.0-17.5) Hematocrit 30.2 % (39.0-53.0) Mean Corpuscular Volume 94 fL (79-100) Mean Corpuscular Hemoglobin 31 pg (25-35) Mean Corpuscular Hemoglobin Concent 33 g/dL (31-37) Red Cell Distribution Width 14.1 % (11.5-14.5) Platelet Count 227 x10^3/uL (140-400) Neutrophils (%) (Auto) 84 % (31-73) Lymphocytes (%) (Auto) 5 % (24-48) Monocytes (%) (Auto) 9 % (0-9) Eosinophils (%) (Auto) 1 % (0-3) Basophils (%) (Auto) 1 % (0-3) Neutrophils # (Auto) 7.4 x10^3uL (1.8-7.7) Lymphocytes # (Auto) 0.5 x10^3/uL (1.0-4.8) Monocytes # (Auto) 0.8 x10^3/uL (0.0-1.1) Eosinophils # (Auto) 0.1 x10^3/uL (0.0-0.7) Basophils # (Auto) 0.0 x10^3/uL (0.0-0.2) Sodium Level 143 mmol/L (136-145) Potassium Level 4.4 mmol/L (3.5-5.1) Chloride Level 108 mmol/L (98-107) Carbon Dioxide Level 26 mmol/L (21-32) Anion Gap 9 (6-14) Blood Urea Nitrogen 13 mg/dL (8-26) Creatinine 0.7 mg/dL (0.7-1.3) Estimated GFR (Cockcroft-Gault) 115.0 BUN/Creatinine Ratio 19 (6-20) Glucose Level 106 mg/dL (70-99) Calcium Level 8.4 mg/dL (8.5-10.1) Total Bilirubin 0.7 mg/dL (0.2-1.0) Aspartate Amino Transf (AST/SGOT) 558 U/L (15-37) Alanine Aminotransferase (ALT/SGPT) 1398 U/L (16-63) Alkaline Phosphatase 83 U/L (46-116) Total Protein 6.6 g/dL (6.4-8.2) Albumin 2.8 g/dL (3.4-5.0) Albumin/Globulin Ratio 0.7 (1.0-1.7) Medications Active Scripts Medications Dose Route/Sig Max Daily Dose Days Date Category Unasyn 3 Gm Vial (Ampicillin Sodium/Sulbactam Na) 3 Gm Vial 2 Gm IV Q4HRS 45 01/05/19 Rx Oxycodone Hcl Immed.release (Oxycodone Hcl) 5 Mg Tablet 10 Mg PO PRN Q4HRS PRN 01/04/19 Rx Oxycontin (Oxycodone HCl) 15 Mg Tab.er.12h 15 Mg PO Q12HR 01/04/19 Rx Colace (Docusate Sodium) 100 Mg Capsule 100 Mg PO BID 30 12/09/18 Rx Hydrochlorothiazide Capsule (Hydrochlorothiazide) 12.5 Mg Capsule 25 Mg PO DAILY 11/29/18 Reported Proair Hfa Inhaler (Albuterol Sulfate) 8.5 Gm Hfa.aer.ad 2 Puff INH PRN Q6HRS PRN 11/29/18 Reported Albuterol Sulfate Neb Soln (Albuterol Sulfate) 2.5 Mg/3 Ml Vial.neb 2.5 Mg NEB PRN Q4-6HRS PRN 11/29/18 Reported Ipratropium [place] 0.2 Mg/1 Ml Solution 0.2 Mg IH PRN Q4-6HRS PRN 11/29/18 Reported Zoloft (Sertraline Hcl) 100 Mg Tablet 1 Tab PO DAILY 11/04/18 Reported Robaxin (Methocarbamol) 500 Mg Tablet 500 Mg PO QID PRN 11/04/18 Reported Azelastine Hcl 6 Ml Drops 1 Drop EACHEYE PRN DAILY PRN 11/04/18 Reported Lisinopril 10 Mg Tablet 10 Mg PO DAILY 08/12/17 Reported Lasix (Furosemide) 20 Mg Tablet 20 Mg PO DAILY 08/12/17 Reported Tamsulosin Hcl 0.4 Mg Cap.er.24h 0.4 Mg PO DAILY 08/12/17 Reported Montelukast Sodium Tablet (Montelukast Sodium) 10 Mg Tablet 10 Mg PO HS 08/12/17 Reported Metoprolol Tartrate 25 Mg Tablet 25 Mg PO BID 07/11/16 Rx Omeprazole 20 Mg Capsule.dr 20 Mg PO DAILY 07/09/16 Reported Topiramate 50 Mg Tablet 1 Tab PO BID 07/09/16 Reported Daliresp (Roflumilast) 500 Mcg Tablet 500 Mcg PO DAILY 07/09/16 Reported Comments reviewed cxr, ett ok, ll infilt atelectasis R>L Impression . 1. Acute respiratory failure, multifactorial in etiology. 2. Abnormal chest x-ray.c/w RLL pneumonia 3. Acute kidney injury. Electrolyte abnormality. improving 4. Elevated troponin, non-ST elevation myocardial infarction. 5. Atrial fibrillation with rapid ventricular response, now rate controlled. 6. Hyperkalemia. resolved 7. Status post back surgery, epidural abscess, incision and drainage, on antibiotic. 8. Chronic obstructive pulmonary disease. 9. Acute diastolic congestive heart failure. 10. sepsis, ? aspiration 11. Obstructive sleep apnea-hypopnea syndrome. 12. elevated LFTs improving/ shock liver 13. Encephalopathy/ ? extension of epidural abscess to brain, ?Nicotine withdrawl/ ? ETOH withdrawl, /sepsis Plan . PLAN AND RECOMMENDATIONS: 1. BIPAP for now 2. PRN ativan 3. bronchodilator. 4. inhaled corticosteroid. 5. Pepcid for stress ulcer prophylaxis. 6. Monitor potassium and creatinine. 7. fu Sputum culture. 8. abx per id 9. Cardiology on case 10. Monitor respiratory status very closely. 11. review ABG (combined met/ resp acidosis. Bicarb today.repeat ABG. portable chest x-ray in am 12. He is on heparin drip per cardiology. Monitor for bleeding. The findings and recommendations were discussed with RN/ and cardiology awaiting MRI spine/ brain/ add nicotine patch cct 35 min. FOREIGN GOODE MD Feb 07, 2019 11:51
--- NOTE | 2019-02-07 11:56 | PDOC ---
MATI WINTERS FAMILY PHYSICIAN 02/07/19 1156: CARDIO Progress Notes Date and Time Date of Service 02/07/19 Time of Evaluation 1130 Subjective Subjective: Other (sedated; on BiPAP) Vitals Vitals Vital Signs Date Time Temp Pulse Resp B/P (MAP) Pulse Ox O2 Delivery O2 Flow Rate FiO2 02/07/19 11:00 67 27 170/95 (120) 98 BiPAP/CPAP 02/07/19 09:05 3.0 02/07/19 08:00 98.5 98.5 Weight Weight [ ] Input and Output Intake and Output Intake and Output 02/07/19 07:00 Intake Total 4320.8 ml Output Total 2455 ml Balance 1865.8 ml Intake Oral 0 ml IV Total 4056.8 ml Tube Feeding 264 ml Output Urine Total 2455 ml # Bowel Movements 4 Laboratory Labs Laboratory Tests Test 02/06/19 15:53 02/07/19 09:00 02/07/19 09:05 O2 Saturation 91 % (92-99) 91 % (92-99) Arterial Blood pH 7.38 (7.35-7.45) 7.27 (7.35-7.45) Arterial Blood pCO2 at Patient Temp 40 mmHg (35-46) 56 mmHg (35-46) Arterial Blood pO2 at Patient Temp 67 mmHg (65-108) 71 mmHg (65-108) Arterial Blood HCO3 23 mmol/L (21-28) 25 mmol/L (21-28) Arterial Blood Base Excess -2 mmol/L (-3-3) -2 mmol/L (-3-3) FiO2 36 32 White Blood Count 8.9 x10^3/uL (4.0-11.0) Red Blood Count 3.20 x10^6/uL (4.30-5.70) Hemoglobin 10.0 g/dL (13.0-17.5) Hematocrit 30.2 % (39.0-53.0) Mean Corpuscular Volume 94 fL (79-100) Mean Corpuscular Hemoglobin 31 pg (25-35) Mean Corpuscular Hemoglobin Concent 33 g/dL (31-37) Red Cell Distribution Width 14.1 % (11.5-14.5) Platelet Count 227 x10^3/uL (140-400) Neutrophils (%) (Auto) 84 % (31-73) Lymphocytes (%) (Auto) 5 % (24-48) Monocytes (%) (Auto) 9 % (0-9) Eosinophils (%) (Auto) 1 % (0-3) Basophils (%) (Auto) 1 % (0-3) Neutrophils # (Auto) 7.4 x10^3uL (1.8-7.7) Lymphocytes # (Auto) 0.5 x10^3/uL (1.0-4.8) Monocytes # (Auto) 0.8 x10^3/uL (0.0-1.1) Eosinophils # (Auto) 0.1 x10^3/uL (0.0-0.7) Basophils # (Auto) 0.0 x10^3/uL (0.0-0.2) Sodium Level 143 mmol/L (136-145) Potassium Level 4.4 mmol/L (3.5-5.1) Chloride Level 108 mmol/L (98-107) Carbon Dioxide Level 26 mmol/L (21-32) Anion Gap 9 (6-14) Blood Urea Nitrogen 13 mg/dL (8-26) Creatinine 0.7 mg/dL (0.7-1.3) Estimated GFR (Cockcroft-Gault) 115.0 BUN/Creatinine Ratio 19 (6-20) Glucose Level 106 mg/dL (70-99) Calcium Level 8.4 mg/dL (8.5-10.1) Total Bilirubin 0.7 mg/dL (0.2-1.0) Aspartate Amino Transf (AST/SGOT) 558 U/L (15-37) Alanine Aminotransferase (ALT/SGPT) 1398 U/L (16-63) Alkaline Phosphatase 83 U/L (46-116) Total Protein 6.6 g/dL (6.4-8.2) Albumin 2.8 g/dL (3.4-5.0) Albumin/Globulin Ratio 0.7 (1.0-1.7) Microbiology Micro Microbiology 02/04/19 Blood Culture - Preliminary, Resulted NO GROWTH AFTER 2 DAYS 02/05/19 - Final, Resulted 02/05/19 - Final, Resulted 02/05/19 - Final, Resulted 02/05/19 Gram Stain Evaluation - Final, Resulted 02/05/19 Sputum Culture, Resulted Pending Physical Exam HEENT: Neck Supple W Full Motion Chest: Symmetric LUNGS: Clear to Auscultation, Other (diminished bases) Heart: S1S2, irregularly irregular, other (distant heart tones) Extremities: 2+ Dorsalis Pedis, Other (1+ bilateral LE edema ) Neurology: other (sedated) Assessment Assessment 1. Acute hypoxic respiratory failure; extubated 02/07; remains of BiPAP 2. NSTEMI; peak 2.514. on heparin. Echo showed preserved LV systolic function with an EF of 65%. RV mild to moderately dilated. 3. Post surgical epidural abscess; s/p I & D 4. Leukocytosis, lactic acidosis, possible sepsis. ? aspiration 5. Permanent AFIB; rate controlled when not agitated 6. AL, hyperkalemia; improved 7. Transaminitis; improving 8. Metabolic encephalopathy; requiring sedation due to agitation 9. Chronic diastolic HF; clinically compensated. Recommendations Discontinue hepatin gtt Ongoing antibiotic therapy Await MRI results; start Eliquis for stroke prophylaxis if no further surgical intervention warranted. Will need ischemic evaluation when acute issue resolve, possibly as an outpatient Supportive care TONIO KIM MD 02/07/19 2318: CARDIO Progress Notes Plan Plan Pt. seen and examined. Discussed with family. Agree with above. Await MRI to r/o any abscess extension Supportive care. Discussed r/b/a to cath now versus in the future after stabilization of spine issues. He has normal EF, no obvious HF signs. Treatment of other issues for now. in agreement. MATI WINTERS APRN Feb 07, 2019 11:56 TONIO KIM MD Feb 07, 2019 23:18
[2019-02-07] MEDS: hydrALAZINE 20 MG/ML VIAL. IVP PRN (12:16)
--- NOTE | 2019-02-07 12:41 | PDOC ---
ICU PROGRESS NOTES Subjective Restless since extubation yesterday, needed sedation, still not cognitively aware. He has MRI of brain and L-spine ordered Objective Objective doesn't respond to name, eyes closed breathing somewhat labored on NC O2, no JVD surveillance system monitor observed abd obese but soft feet warm and without edema [place] in place with adequate output Vitals Vital Signs Date Time Temp Pulse Resp B/P (MAP) Pulse Ox O2 Delivery O2 Flow Rate FiO2 02/07/19 12:16 64 160/114 02/07/19 11:00 27 98 BiPAP/CPAP 02/07/19 09:05 3.0 02/07/19 08:00 98.5 98.5 Input & Output Intake and Output 02/07/19 07:00 Intake Total 4320.8 ml Output Total 2455 ml Balance 1865.8 ml Intake Oral 0 ml IV Total 4056.8 ml Tube Feeding 264 ml Output Urine Total 2455 ml # Bowel Movements 4 Ventilator Settings O2 Flow Rate: 3.0 Oxygen Delivery Device: BiPAP/CPAP O2 Humdified: HME Temperature (97-99 F): Yes FiO2: 30 SpO2: 98 DVT Prophylaxis DVT Prophylaxis yes, heparin Stress Ulcer Prophylaxis Stress Ulcer Prophylaxis yes Medications Medications Current Medications Albuterol Sulfate (Ventolin Neb Soln) 2.5 mg 1X ONCE NEB Last administered on 02/07/19at 02:13; Start 02/07/19 at 02:15; Stop 02/07/19 at 02:16; Status DC Amino Acids/ Glycerin/ Electrolytes 1,000 ml @ 80 mls/hr [id number] IV Last administered on 02/07/19at 09:19; Start 02/07/19 at 08:30 Atropine Sulfate (ATROPINE 0.5mg SYRINGE) 0.5 mg PRN Q5MIN PRN IV SEE COMMENTS ; Start 02/06/19 at 13:30 Dexmedetomidine HCl 200 mcg/ Sodium Chloride 50 ml @ 0 mls/hr CONT PRN IV PER PROTOCOL Last administered on 02/07/19at 11:34; Start 02/06/19 at 13:30 Haloperidol Lactate (Haldol Inj) 2.5 mg 1X PRN PRN IVP AGITATION Last administered on 02/07/19at 07:04; Start 02/06/19 at 16:30; Stop 02/07/19 at 07:04 ; Status DC Haloperidol Lactate (Haldol Inj) 2.5 mg 1X PRN PRN IVP AGITATION; Start at 16:30; Status UNV Lorazepam (Ativan) 1 mg PRN Q1HR PRN IV ANXIETY / AGITATION Last administered on 02/07/19at 10:45; Start 02/07/19 at 07:45 Nicotine (Nicoderm Cq 21mg) 1 patch DAILY TD ; Start 02/07/19 at 11:45 Sodium Bicarbonate (Sodium Bicarb Adult 8.4% Syr) 50 meq 1X ONCE IV Last administered on 02/07/19at 12:16; Start 02/07/19 at 11:45; Stop 02/07/19 at 11:46 ; Status DC Sodium Chloride 500 ml @ 500 mls/hr 1X PRN PRN IV SEE COMMENTS; Start at 13:30 Physical Exam General: Lethargic HEENT: Other (nc at perrl nose clear, orally intubated, neck no lad, no thyromegaly) Lungs: Other (decrease bases) Cardiovascular: Other (irreg irreg) Abdomen: Soft, Non-tender Extremities: Other (trace edema) Skin: Warm Impression . acute respiratory failure - presumed aspiration NSTEMI acute encephalopathy likely aspiration pneumonitis shock liver COPD recent spinal abscess s/p lumbar lami but sed rate had returned to normal [employer]IL [employer] and he was nearly finished with 45 day course of antibiotics acute flare of lumbar back pain last week without injury requiring an increase in pain meds for control obesity ADILENE hx of alcoholism Plan . 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
[2019-02-07] MEDS ORDERED: OXYC5CAP PO (13:21)
[2019-02-07] MEDS ORDERED: FENT1PAT21 TD (13:21)
[2019-02-07] MEDS ORDERED: ZOLP10TA PO (13:21)
[2019-02-07] MEDS ORDERED: GABA600T7 PO (13:21)
[2019-02-07] MEDS ORDERED: GUAI-108 PO (13:21)
[2019-02-07] MEDS ORDERED: BISA-42 PO (13:21)
[2019-02-07] MEDS ORDERED: IBUP-1007 PO (13:21)
--- NOTE | 2019-02-07 13:28 | PDOC ---
PROGRESS NOTES Assessment Problems Medical Problems: (1) Altered mental status Status: Acute (2) Elevated LFTs Status: Acute (3) Hyperkalemia Status: Acute Metabolic encephalopathy Seizures, has a history of seizure related to hypoxia in the past Lumbar spine abscess Medical problems: obstructive sleep apnea, atrial fibrillation, chronic obstructive pulmonary disease, congestive heart failure Plan Awaiting MRI of the brain and lumbar spine. I discussed with family. Subjective None Objective Vital Signs Date Time Temp Pulse Resp B/P (MAP) Pulse Ox O2 Delivery O2 Flow Rate FiO2 02/07/19 13:00 70 25 134/76 (95) 98 BiPAP/CPAP 02/07/19 12:00 98.8 98.8 02/07/19 09:05 3.0 Intake and Output 02/07/19 06:59 Intake Total 4320.8 ml Output Total 2605 ml Balance 1715.8 ml Intake Oral 0 ml IV Total 4056.8 ml Tube Feeding 264 ml Output Urine Total 2605 ml # Bowel Movements 4 PHYSICAL EXAM Sedated, not responsive the verbal stimuli, on BiPAP PERRL. EOMI. CN: no focal findings. Muscle tone: normal. Muscle strength: no movement to light pain DTR: 1+ Plantar reflex: silent Gait: not examined in bed. Sensory exam: not cooperative. Cerebellar: not cooperative Review of Relevant I have reviewed the following items valerie (where applicable) has been applied. Labs Laboratory Tests Test 02/05/19 20:30 02/05/19 20:38 02/06/19 02:00 02/06/19 05:35 Heparin Anti-Xa Act, Unfractionated 0.19 IU/mL (0.30-0.70) 0.29 IU/mL (0.30-0.70) Glucose (Fingerstick) 94 mg/dL (70-99) White Blood Count 7.4 x10^3/uL (4.0-11.0) Red Blood Count 3.12 x10^6/uL (4.30-5.70) Hemoglobin 9.7 g/dL (13.0-17.5) Hematocrit 29.2 % (39.0-53.0) Mean Corpuscular Volume 94 fL (79-100) Mean Corpuscular Hemoglobin 31 pg (25-35) Mean Corpuscular Hemoglobin Concent 33 g/dL (31-37) Red Cell Distribution Width 14.2 % (11.5-14.5) Platelet Count 265 x10^3/uL (140-400) Neutrophils (%) (Auto) 78 % (31-73) Lymphocytes (%) (Auto) 12 % (24-48) Monocytes (%) (Auto) 8 % (0-9) Eosinophils (%) (Auto) 2 % (0-3) Basophils (%) (Auto) 1 % (0-3) Neutrophils # (Auto) 5.7 x10^3uL (1.8-7.7) Lymphocytes # (Auto) 0.9 x10^3/uL (1.0-4.8) Monocytes # (Auto) 0.6 x10^3/uL (0.0-1.1) Eosinophils # (Auto) 0.2 x10^3/uL (0.0-0.7) Basophils # (Auto) 0.1 x10^3/uL (0.0-0.2) Sodium Level 141 mmol/L (136-145) Potassium Level 3.4 mmol/L (3.5-5.1) Chloride Level 105 mmol/L (98-107) Carbon Dioxide Level 26 mmol/L (21-32) Anion Gap 10 (6-14) Blood Urea Nitrogen 23 mg/dL (8-26) Creatinine 0.8 mg/dL (0.7-1.3) Estimated GFR (Cockcroft-Gault) 98.6 BUN/Creatinine Ratio 29 (6-20) Glucose Level 122 mg/dL (70-99) Calcium Level 7.9 mg/dL (8.5-10.1) Total Bilirubin 0.2 mg/dL (0.2-1.0) Aspartate Amino Transf (AST/SGOT) 1170 U/L (15-37) Alanine Aminotransferase (ALT/SGPT) 1770 U/L (16-63) Alkaline Phosphatase 76 U/L (46-116) Troponin I Quantitative 1.177 ng/mL (0.000-0.055) Total Protein 5.8 g/dL (6.4-8.2) Albumin 2.4 g/dL (3.4-5.0) Albumin/Globulin Ratio 0.7 (1.0-1.7) Test 02/06/19 06:35 02/06/19 08:45 02/06/19 10:10 02/06/19 15:53 Heparin Anti-Xa Act, Unfractionated 0.29 IU/mL (0.30-0.70) O2 Saturation 96 % (92-99) 92 % (92-99) 91 % (92-99) Arterial Blood pH 7.40 (7.35-7.45) 7.39 (7.35-7.45) 7.38 (7.35-7.45) Arterial Blood pCO2 at Patient Temp 41 mmHg (35-46) 41 mmHg (35-46) 40 mmHg (35-46) Arterial Blood pO2 at Patient Temp 93 mmHg (65-108) 71 mmHg (65-108) 67 mmHg (65-108) Arterial Blood HCO3 25 mmol/L (21-28) 24 mmol/L (21-28) 23 mmol/L (21-28) Arterial Blood Base Excess 0 mmol/L (-3-3) -1 mmol/L (-3-3) -2 mmol/L (-3-3) FiO2 40 30 36 Test 02/07/19 09:00 02/07/19 09:05 White Blood Count 8.9 x10^3/uL (4.0-11.0) Red Blood Count 3.20 x10^6/uL (4.30-5.70) Hemoglobin 10.0 g/dL (13.0-17.5) Hematocrit 30.2 % (39.0-53.0) Mean Corpuscular Volume 94 fL (79-100) Mean Corpuscular Hemoglobin 31 pg (25-35) Mean Corpuscular Hemoglobin Concent 33 g/dL (31-37) Red Cell Distribution Width 14.1 % (11.5-14.5) Platelet Count 227 x10^3/uL (140-400) Neutrophils (%) (Auto) 84 % (31-73) Lymphocytes (%) (Auto) 5 % (24-48) Monocytes (%) (Auto) 9 % (0-9) Eosinophils (%) (Auto) 1 % (0-3) Basophils (%) (Auto) 1 % (0-3) Neutrophils # (Auto) 7.4 x10^3uL (1.8-7.7) Lymphocytes # (Auto) 0.5 x10^3/uL (1.0-4.8) Monocytes # (Auto) 0.8 x10^3/uL (0.0-1.1) Eosinophils # (Auto) 0.1 x10^3/uL (0.0-0.7) Basophils # (Auto) 0.0 x10^3/uL (0.0-0.2) Sodium Level 143 mmol/L (136-145) Potassium Level 4.4 mmol/L (3.5-5.1) Chloride Level 108 mmol/L (98-107) Carbon Dioxide Level 26 mmol/L (21-32) Anion Gap 9 (6-14) Blood Urea Nitrogen 13 mg/dL (8-26) Creatinine 0.7 mg/dL (0.7-1.3) Estimated GFR (Cockcroft-Gault) 115.0 BUN/Creatinine Ratio 19 (6-20) Glucose Level 106 mg/dL (70-99) Calcium Level 8.4 mg/dL (8.5-10.1) Total Bilirubin 0.7 mg/dL (0.2-1.0) Aspartate Amino Transf (AST/SGOT) 558 U/L (15-37) Alanine Aminotransferase (ALT/SGPT) 1398 U/L (16-63) Alkaline Phosphatase 83 U/L (46-116) Total Protein 6.6 g/dL (6.4-8.2) Albumin 2.8 g/dL (3.4-5.0) Albumin/Globulin Ratio 0.7 (1.0-1.7) O2 Saturation 91 % (92-99) Arterial Blood pH 7.27 (7.35-7.45) Arterial Blood pCO2 at Patient Temp 56 mmHg (35-46) Arterial Blood pO2 at Patient Temp 71 mmHg (65-108) Arterial Blood HCO3 25 mmol/L (21-28) Arterial Blood Base Excess -2 mmol/L (-3-3) FiO2 32 Laboratory Tests Test 02/06/19 15:53 02/07/19 09:00 02/07/19 09:05 O2 Saturation 91 % (92-99) 91 % (92-99) Arterial Blood pH 7.38 (7.35-7.45) 7.27 (7.35-7.45) Arterial Blood pCO2 at Patient Temp 40 mmHg (35-46) 56 mmHg (35-46) Arterial Blood pO2 at Patient Temp 67 mmHg (65-108) 71 mmHg (65-108) Arterial Blood HCO3 23 mmol/L (21-28) 25 mmol/L (21-28) Arterial Blood Base Excess -2 mmol/L (-3-3) -2 mmol/L (-3-3) FiO2 36 32 White Blood Count 8.9 x10^3/uL (4.0-11.0) Red Blood Count 3.20 x10^6/uL (4.30-5.70) Hemoglobin 10.0 g/dL (13.0-17.5) Hematocrit 30.2 % (39.0-53.0) Mean Corpuscular Volume 94 fL (79-100) Mean Corpuscular Hemoglobin 31 pg (25-35) Mean Corpuscular Hemoglobin Concent 33 g/dL (31-37) Red Cell Distribution Width 14.1 % (11.5-14.5) Platelet Count 227 x10^3/uL (140-400) Neutrophils (%) (Auto) 84 % (31-73) Lymphocytes (%) (Auto) 5 % (24-48) Monocytes (%) (Auto) 9 % (0-9) Eosinophils (%) (Auto) 1 % (0-3) Basophils (%) (Auto) 1 % (0-3) Neutrophils # (Auto) 7.4 x10^3uL (1.8-7.7) Lymphocytes # (Auto) 0.5 x10^3/uL (1.0-4.8) Monocytes # (Auto) 0.8 x10^3/uL (0.0-1.1) Eosinophils # (Auto) 0.1 x10^3/uL (0.0-0.7) Basophils # (Auto) 0.0 x10^3/uL (0.0-0.2) Sodium Level 143 mmol/L (136-145) Potassium Level 4.4 mmol/L (3.5-5.1) Chloride Level 108 mmol/L (98-107) Carbon Dioxide Level 26 mmol/L (21-32) Anion Gap 9 (6-14) Blood Urea Nitrogen 13 mg/dL (8-26) Creatinine 0.7 mg/dL (0.7-1.3) Estimated GFR (Cockcroft-Gault) 115.0 BUN/Creatinine Ratio 19 (6-20) Glucose Level 106 mg/dL (70-99) Calcium Level 8.4 mg/dL (8.5-10.1) Total Bilirubin 0.7 mg/dL (0.2-1.0) Aspartate Amino Transf (AST/SGOT) 558 U/L (15-37) Alanine Aminotransferase (ALT/SGPT) 1398 U/L (16-63) Alkaline Phosphatase 83 U/L (46-116) Total Protein 6.6 g/dL (6.4-8.2) Albumin 2.8 g/dL (3.4-5.0) Albumin/Globulin Ratio 0.7 (1.0-1.7) Microbiology 02/04/19 Blood Culture - Preliminary, Resulted NO GROWTH AFTER 2 DAYS 02/05/19 - Final, Resulted 02/05/19 - Final, Resulted 02/05/19 - Final, Resulted 02/05/19 Gram Stain Evaluation - Final, Resulted 02/05/19 Sputum Culture, Resulted Pending Medications Current Medications Sodium Chloride 1,000 ml @ 1,000 mls/hr 1X ONCE IV Last administered on at 15:03; Start 02/04/19 at 15:15; Stop 02/04/19 at 16:14; Status DC Midazolam HCl (Versed) 2 mg 1X ONCE IV Last administered on 02/04/19at 15:05; Start 02/04/19 at 15:15; Stop 02/04/19 at 15:16; Status DC Piperacillin Sod/ Tazobactam Sod (Zosyn Per Pharmacy) 1 each PRN DAILY PRN MC SEE COMMENTS; Start 02/04/19 at 15:15 Fentanyl Citrate (Fentanyl 2ml Vial) 50 mcg 1X ONCE IV ; Start 02/04/19 at 15: 15; Stop 02/04/19 at 15:16; Status DC Piperacillin Sod/ Tazobactam Sod 4.5 gm/Sodium Chloride 100 ml @ 200 mls/hr 1X ONCE IV Last administered on 02/04/19at 15:33; Start 02/04/19 at 16:00; Stop 02/04/19 at 16:29; Status DC Etomidate (Amidate) 20 mg STK-MED ONCE IV ; Start 02/04/19 at 15:22; Stop at 15:23; Status DC Naloxone HCl (Narcan) 2 mg STK-MED ONCE .ROUTE ; Start 02/04/19 at 15:22; Stop 02/04/19 at 15:23; Status DC Rocuronium [place] (Zemuron) 50 mg STK-MED ONCE .ROUTE ; Start 02/04/19 at 15:23 ; Stop 02/04/19 at 15:24; Status DC Propofol (Diprivan) 200 mg 1X ONCE IV Last administered on 02/04/19at 16:10; Start 02/04/19 at 15:45; Stop 02/04/19 at 15:46; Status DC Sodium Chloride 1,000 ml @ 1,000 mls/hr 1X ONCE IV Last administered on at 16:05; Start 02/04/19 at 16:00; Stop 02/04/19 at 16:59; Status DC Aspirin (Aspirin) 300 mg 1X STAT MS Last administered on 02/04/19at 17:11; Start 02/04/19 at 15:52; Stop 02/04/19 at 15:55; Status DC Sodium Bicarbonate (Sodium Bicarb Adult 8.4% Syr) 50 meq 1X ONCE IV Last administered on 02/04/19at 17:11; Start 02/04/19 at 16:00; Stop 02/04/19 at 16:01 ; Status DC Levetiracetam 1000 mg/Dextrose 110 ml @ 440 mls/hr 1X ONCE IV Last administered on 02/04/19at 16:54; Start 02/04/19 at 16:00; Stop 02/04/19 at 16:14 ; Status DC Calcium Gluconate (Calcium Gluconate) 1,000 mg 1X ONCE IVP Last administered on 02/04/19at 17:01; Start 02/04/19 at 16:00; Stop 02/04/19 at 16:01; Status DC Propofol 50 ml @ As Directed STK-MED ONCE IV ; Start 02/04/19 at 16:05; Stop at 16:06; Status DC Sodium Chloride 1,000 ml @ 125 mls/hr Q8H IV Last administered on 02/05/19at 07 :12; Start 02/04/19 at 16:09; Stop 02/05/19 at 15:19; Status DC Piperacillin Sod/ Tazobactam Sod 3.375 gm/Sodium Chloride 50 ml @ 100 mls/hr Q6HRS IV Last administered on 02/07/19at 12:15; Start 02/05/19 at 00:00 Etomidate (Amidate) 20 mg 1X ONCE IV Last administered on 02/04/19at 15:00; Start 02/04/19 at 16:45; Stop 02/04/19 at 16:46; Status DC Rocuronium [place] (Zemuron) 100 mg 1X ONCE IV Last administered on 02/04/19at 15:00; Start 02/04/19 at 16:45; Stop 02/04/19 at 16:46; Status DC Naloxone HCl (Narcan) 2 mg 1X ONCE IV Last administered on 02/04/19at 14:57; Start 02/04/19 at 16:45; Stop 02/04/19 at 16:46; Status DC Norepinephrine Bitartrate 250 ml @ 1.875 mls/ hr CONT PRN IV SEE I/O RECORD; Start 02/04/19 at 17:30 Dopamine HCl/ Dextrose 250 ml @ As Directed STK-MED ONCE IV ; Start 02/04/19 at 17:25; Stop 02/04/19 at 17:26; Status DC Fentanyl Citrate (Fentanyl 2ml Vial) 50 mcg 1X ONCE IV ; Start 02/04/19 at 17: 45; Stop 02/04/19 at 17:46; Status DC Midazolam HCl (Versed) 2 mg 1X ONCE IV ; Start 02/04/19 at 17:45; Stop at 17:46; Status DC Propofol 100 ml @ As Directed STK-MED ONCE IV ; Start 02/04/19 at 18:45; Stop 02/04/19 at 18:46; Status DC Propofol 100 ml @ 1.905 mls/ hr CONT PRN IV SEE I/O RECORD; Start 02/04/19 at 18:45 Fentanyl Citrate 30 ml @ 0 mls/hr CONT PRN IV SEE PROTOCOL Last administered on 02/06/19at 05:36; Start 02/04/19 at 19:45 Midazolam HCl 100 ml @ 0 mls/hr CONT PRN IV SEE PROTOCOL Last administered on at 01:52; Start 02/04/19 at 19:45 Heparin Sodium/ Dextrose 500 ml @ 0 mls/hr CONT PRN IV SEE I/O RECORD Last administered on 02/06/19at 01:53; Start 02/04/19 at 22:45; Stop 02/06/19 at 12:32 ; Status DC Info (Anti-Coagulation Monitoring By Pharmacy) 1 each PRN DAILY PRN MC SEE COMMENTS Last administered on 02/06/19at 07:57; Start 02/04/19 at 22:45; Stop at 12:34; Status DC Heparin Sodium (Porcine) (Heparin Sodium) 3,250 unit PRN Q6HRS PRN IV FOR UFH LEVEL LESS THAN 0.2 Last administered on 02/05/19at 22:31; Start 02/05/19 at 01: 30; Stop 02/06/19 at 12:32; Status DC Albuterol/ Ipratropium (Duoneb) 3 ml RTQID NEB Last administered on 02/07/19at 12:30; Start 02/05/19 at 08:00 Budesonide (Pulmicort) 0.5 mg RTBID NEB Last administered on 02/07/19at 09:08; Start 02/05/19 at 08:00 Famotidine (Pepcid Vial) 20 mg QHS IVP Last administered on 02/06/19at 21:14; Start 02/05/19 at 21:00 Sodium Chloride 1,000 ml @ 125 mls/hr Q8HRS IV ; Start 02/05/19 at 15:30; Status UNV Levetiracetam 500 mg/Dextrose 105 ml @ 420 mls/hr Q12HR IV Last administered on 02/07/19at 09:18; Start 02/05/19 at 16:30 Sodium Chloride 1,000 ml @ 125 mls/hr Q8H IV Last administered on 02/07/19at 00 :00; Start 02/05/19 at 16:00; Stop 02/07/19 at 08:31; Status DC Aspirin (Children'S Aspirin) 81 mg [id number] PO ; Start 02/06/19 at 09:30 Potassium Chloride/Water 50 ml @ 50 mls/hr 1X ONCE IV Last administered on at 12:19; Start 02/06/19 at 12:00; Stop 02/06/19 at 12:59; Status DC Hydralazine HCl (Apresoline Inj) 10 mg PRN Q3HRS PRN IVP ELEVATED BP, SEE COMMENTS Last administered on 02/07/19at 12:16; Start 02/06/19 at 11:45 Fentanyl Citrate (Fentanyl 2ml Vial) 50 mcg PRN Q3HRS PRN IV PAIN Last administered on 02/07/19at 10:45; Start 02/06/19 at 11:45 Dexmedetomidine HCl 200 mcg/ Sodium Chloride 50 ml @ 0 mls/hr CONT PRN IV PER PROTOCOL Last administered on 02/07/19at 13:01; Start 02/06/19 at 13:30 Sodium Chloride 500 ml @ 500 mls/hr 1X PRN PRN IV SEE COMMENTS; Start at 13:30 Atropine Sulfate (ATROPINE 0.5mg SYRINGE) 0.5 mg PRN Q5MIN PRN IV SEE COMMENTS ; Start 02/06/19 at 13:30 Haloperidol Lactate (Haldol Inj) 2.5 mg 1X PRN PRN IVP AGITATION Last administered on 02/07/19at 07:04; Start 02/06/19 at 16:30; Stop 02/07/19 at 07:04 ; Status DC Haloperidol Lactate (Haldol Inj) 2.5 mg 1X PRN PRN IVP AGITATION; Start at 16:30; Status UNV Albuterol Sulfate (Ventolin Neb Soln) 2.5 mg 1X ONCE NEB Last administered on 02/07/19at 02:13; Start 02/07/19 at 02:15; Stop 02/07/19 at 02:16; Status DC Lorazepam (Ativan) 1 mg PRN Q1HR PRN IV ANXIETY / AGITATION Last administered on 02/07/19at 12:50; Start 02/07/19 at 07:45 Amino Acids/ Glycerin/ Electrolytes 1,000 ml @ 80 mls/hr [id number] IV Last administered on 02/07/19at 09:19; Start 02/07/19 at 08:30 Propofol (Diprivan) 1,000 mg STK-MED ONCE IV ; Start 02/04/19 at 19:00; Stop at 09:01; Status DC Nicotine (Nicoderm Cq 21mg) 1 patch DAILY TD ; Start 02/07/19 at 11:45 Sodium Bicarbonate (Sodium Bicarb Adult 8.4% Syr) 50 meq 1X ONCE IV Last administered on 02/07/19at 12:16; Start 02/07/19 at 11:45; Stop 02/07/19 at 11:46 ; Status DC Active Scripts Active Unasyn 3 Gm Vial (Ampicillin Sodium/Sulbactam Na) 3 Gm Vial 2 Gm IV Q4HRS 45 Days Colace (Docusate Sodium) 100 Mg Capsule 100 Mg PO BID 30 Days Metoprolol Tartrate 25 Mg Tablet 25 Mg PO BID Reported Ambien (Zolpidem Tartrate) 10 Mg Tablet 10 Mg PO PRN QHS PRN Ibuprofen 600 Mg Tablet 600 Mg PO PRN Q6HRS PRN Dulcolax (Bisacodyl) 5 Mg Tablet.dr 10 Mg PO PRN DAILY PRN Mucinex Dm Er 600-30 Mg Tablet (Guaifenesin/Dextromethorphan) 1 Each Tab.er.12h 1 Tab PO BID FENTANYL 100mcg/hr (Fentanyl) 1 Each Patch.td72 1 Patch TD Q48H Gabapentin 600 Mg Tablet 600 Mg PO TID Oxycodone Hcl 5 Mg Capsule 30 Mg PO Q4HRS PRN Hydrochlorothiazide Capsule (Hydrochlorothiazide) 12.5 Mg Capsule 25 Mg PO DAILY Proair Hfa Inhaler (Albuterol Sulfate) 8.5 Gm Hfa.aer.ad 2 Puff INH PRN Q6HRS PRN Albuterol Sulfate Neb Soln (Albuterol Sulfate) 2.5 Mg/3 Ml Vial.neb 2.5 Mg NEB PRN Q4-6HRS PRN Ipratropium [place] 0.2 Mg/1 Ml Solution 0.2 Mg IH PRN Q4-6HRS PRN Zoloft (Sertraline Hcl) 100 Mg Tablet 1 Tab PO DAILY Robaxin (Methocarbamol) 500 Mg Tablet 750 Mg PO Q8HRS PRN Azelastine Hcl 6 Ml Drops 1 Drop EACHEYE PRN DAILY PRN Lisinopril 10 Mg Tablet 10 Mg PO DAILY Lasix (Furosemide) 20 Mg Tablet 20 Mg PO DAILY Tamsulosin Hcl 0.4 Mg Cap.er.24h 0.4 Mg PO DAILY Montelukast Sodium Tablet (Montelukast Sodium) 10 Mg Tablet 10 Mg PO HS Omeprazole 20 Mg Capsule.dr 20 Mg PO DAILY Topiramate 50 Mg Tablet 1 Tab PO BID Daliresp (Roflumilast) 500 Mcg Tablet 500 Mcg PO DAILY Vitals/I & O Vital Sign - Last 24 Hours 02/06/19 02/06/19 02/06/19 02/06/19 14:00 15:00 15:48 16:00 Temp 98.8 98.8 Pulse 130 102 82 Resp 33 37 29 B/P (MAP) 141/73 (95) 143/99 (114) 143/85 (104) Pulse Ox 93 97 97 O2 Delivery Nasal Cannula Nasal Cannula Nasal Cannula Nasal Cannula O2 Flow Rate 4.0 4.0 4.0 02/06/19 02/06/19 02/06/19 02/06/19 16:00 16:30 17:00 18:00 Pulse 94 82 Resp 26 29 B/P (MAP) 169/97 (121) 143/80 (101) Pulse Ox 95 93 92 O2 Delivery Nasal Cannula Nasal Cannula Nasal Cannula Nasal Cannula O2 Flow Rate 4.0 4.0 4.0 4.0 02/06/19 02/06/19 02/06/19 02/06/19 18:32 19:00 20:00 20:00 Temp 97.9 97.9 Pulse 90 80 Resp 26 30 26 B/P (MAP) 160/83 (108) 157/92 (113) Pulse Ox 96 95 95 O2 Delivery Nasal Cannula Nasal Cannula Nasal Cannula Nasal Cannula O2 Flow Rate 3.0 2.0 2.0 2.0 02/06/19 02/06/19 02/06/19 02/06/19 20:45 20:46 21:00 21:06 Pulse 69 Resp 32 33 B/P (MAP) 180/117 (138) Pulse Ox 92 92 96 96 O2 Delivery Nasal Cannula Nasal Cannula Nasal Cannula Nasal Cannula O2 Flow Rate 4.0 4.0 2.0 2.0 02/06/19 02/06/19 02/07/19 02/07/19 22:00 23:00 00:00 00:00 Temp 98.4 98.4 Pulse 69 86 86 Resp 30 35 24 B/P (MAP) 148/84 (105) 147/83 (104) 129/65 (86) Pulse Ox 93 93 94 O2 Delivery Nasal Cannula Nasal Cannula BiPAP/CPAP Nasal Cannula O2 Flow Rate 2.0 2.0 2.0 02/07/19 02/07/1902/07/02/07/19 00:04 01:00 02:00 03:00 Pulse 100 100 62 Resp 22 28 32 26 B/P (MAP) 170/89 (116) 182/120 (140) 178/97 (124) Pulse Ox 94 94 94 93 O2 Delivery Nasal Cannula BiPAP/CPAP BiPAP/CPAP BiPAP/CPAP O2 Flow Rate 2.0 02/07/19 02/07/1902/07/02/07/19 03:19 04:00 04:00 05:00 Temp 98.1 98.1 Pulse 64 68 Resp 29 34 B/P (MAP) 163/99 (120) 170/91 (117) Pulse Ox 93 97 97 O2 Delivery Nasal Cannula Bi-pap BiPAP/CPAP BiPAP/CPAP O2 Flow Rate 2.0 02/07/19 02/07/1902/07/02/07/19 06:00 06:28 06:59 07:00 Pulse 89 85 Resp 33 30 31 B/P (MAP) 157/93 (114) 143/80 (101) Pulse Ox 94 96 96 O2 Delivery Nasal Cannula BiPAP/CPAP Nasal Cannula O2 Flow Rate 2.0 2.0 3.0 02/07/02/07/02/07/02/07/19 07:30 08:00 09:00 09:05 Temp 98.5 98.5 Pulse 65 77 Resp 22 26 B/P (MAP) 142/90 (107) 158/82 (107) Pulse Ox 93 95 94 O2 Delivery Nasal Cannula Nasal Cannula Nasal Cannula Nasal Cannula O2 Flow Rate 3.0 3.0 3.0 3.0 02/07/1902/07/02/07/02/07/19 09:45 10:00 10:45 11:00 Pulse 62 67 Resp 30 30 27 B/P (MAP) 167/86 (113) 170/95 (120) Pulse Ox 97 99 98 98 O2 Delivery BiPAP/CPAP BiPAP/CPAP BiPAP/CPAP BiPAP/CPAP 02/07/02/07/02/07/02/07/ 11:15 12:00 12:00 12:16 Temp 98.8 98.8 Pulse 68 64 Resp 26 26 B/P (MAP) 160/114 (129) 160/114 Pulse Ox 100 97 O2 Delivery BiPAP/CPAP Bi-pap BiPAP/CPAP 02/07/19 02/07/19 12:30 13:00 Pulse 70 Resp 25 B/P (MAP) 134/76 (95) Pulse Ox 98 98 O2 Delivery BiPAP/CPAP BiPAP/CPAP Intake and Output 02/06/19 02/06/19 02/07/19 14:59 22:59 06:59 Intake Total 819 ml 925 ml 2576.8 ml Output Total 1200 ml 930 ml 475 ml Balance -381 ml -5 ml 2101.8 ml CISCO DE SOUZA MD Feb 07, 2019 13:28
[2019-02-07] MEDS: FAMOTIDINE 20 MG/2 ML VIAL IVP SCH (20:35)
[2019-02-08] VITALS (25 sets, daily range): BP systolic 104–175; BP diastolic 68–105
[2019-02-08] MEDS: DEXMEDETOMIDINE 200 MCG in IV NORMAL SALINE 50ML 48 ML IV PRN ×17 (00:09→22:33)
[2019-02-08] MEDS: fentaNYL PF VIAL 100 MCG/2 ML VIAL IV PRN ×2 (02:09→09:06)
[2019-02-08] MEDS: PIPERACILLIN/TAZOBACTAM 3.375 GM in IV NORMAL SALINE 50ML 50 ML IV SCH ×6 (05:45→23:44)
--- NOTE | 2019-02-08 07:26 | PDOC ---
Infectious Disease Note Subjective Subjective sedated, sleepy, on bipap ROS ROS no n/v/d/fever Vital Sign Vital Signs Vital Signs Date Time Temp Pulse Resp B/P (MAP) Pulse Ox O2 Delivery O2 Flow Rate FiO2 02/08/19 06:00 88 39 152/83 (106) 98 BiPAP/CPAP 02/08/19 04:00 98.6 98.6 02/07/19 09:05 3.0 Physical Exam PHYSICAL EXAM GENERAL: extubated HEENT: ETT and OGT in place. LUNGS: Diminished aeration. HEART: S1 and S2. ABDOMEN: Obese, soft. No grimace or guarding to palpation, with bowel sounds present. GENITOURINARY: Strat[place] in place. EXTREMITIES: Generalized trace edema. No cyanosis. SKIN: Warm, without rash. NEUROLOGIC: Arouses easily to name, PIV Labs Lab Laboratory Tests Test 02/07/19 09:00 02/07/19 09:05 White Blood Count 8.9 x10^3/uL (4.0-11.0) Red Blood Count 3.20 x10^6/uL (4.30-5.70) Hemoglobin 10.0 g/dL (13.0-17.5) Hematocrit 30.2 % (39.0-53.0) Mean Corpuscular Volume 94 fL (79-100) Mean Corpuscular Hemoglobin 31 pg (25-35) Mean Corpuscular Hemoglobin Concent 33 g/dL (31-37) Red Cell Distribution Width 14.1 % (11.5-14.5) Platelet Count 227 x10^3/uL (140-400) Neutrophils (%) (Auto) 84 % (31-73) Lymphocytes (%) (Auto) 5 % (24-48) Monocytes (%) (Auto) 9 % (0-9) Eosinophils (%) (Auto) 1 % (0-3) Basophils (%) (Auto) 1 % (0-3) Neutrophils # (Auto) 7.4 x10^3uL (1.8-7.7) Lymphocytes # (Auto) 0.5 x10^3/uL (1.0-4.8) Monocytes # (Auto) 0.8 x10^3/uL (0.0-1.1) Eosinophils # (Auto) 0.1 x10^3/uL (0.0-0.7) Basophils # (Auto) 0.0 x10^3/uL (0.0-0.2) Sodium Level 143 mmol/L (136-145) Potassium Level 4.4 mmol/L (3.5-5.1) Chloride Level 108 mmol/L (98-107) Carbon Dioxide Level 26 mmol/L (21-32) Anion Gap 9 (6-14) Blood Urea Nitrogen 13 mg/dL (8-26) Creatinine 0.7 mg/dL (0.7-1.3) Estimated GFR (Cockcroft-Gault) 115.0 BUN/Creatinine Ratio 19 (6-20) Glucose Level 106 mg/dL (70-99) Calcium Level 8.4 mg/dL (8.5-10.1) Total Bilirubin 0.7 mg/dL (0.2-1.0) Aspartate Amino Transf (AST/SGOT) 558 U/L (15-37) Alanine Aminotransferase (ALT/SGPT) 1398 U/L (16-63) Alkaline Phosphatase 83 U/L (46-116) Total Protein 6.6 g/dL (6.4-8.2) Albumin 2.8 g/dL (3.4-5.0) Albumin/Globulin Ratio 0.7 (1.0-1.7) O2 Saturation 91 % (92-99) Arterial Blood pH 7.27 (7.35-7.45) Arterial Blood pCO2 at Patient Temp 56 mmHg (35-46) Arterial Blood pO2 at Patient Temp 71 mmHg (65-108) Arterial Blood HCO3 25 mmol/L (21-28) Arterial Blood Base Excess -2 mmol/L (-3-3) FiO2 32 Micro Microbiology 02/04/19 Blood Culture - Preliminary, Resulted NO GROWTH AFTER 2 DAYS Objective Assessment 1. Sepsis ??, likely had dehydration and too much pain meds 2. Fever. 3. Suspect aspiration. 4. Post-surgical spine infection with epidural abscess, status post incision and drainage on 12/30/2018, with growth of Enterococcus, ampicillin sensitive. He was undergoing a treatment with ampicillin prior to this admission. His original back surgery was on 12/09/2018. Recent sed rate from 01/31/2019 was 25. 5. Acute respiratory failure. 6. Acute encephalopathy. 7. Non-ST elevation myocardial infarction. 8. Acute kidney injury. 9. Shock liver. 10. Myoclonic movements, on Keppra. 11. Hypertension. 12. Atrial fibrillation. 13. Obstructive sleep apnea. 14. Morbid obesity. 15. Chronic obstructive pulmonary disease. Plan Plan of Care Continue Zosyn for suspected aspiration and continual tx for spinal infection f/u cultures Monitor labs/VS/temp Supportive care awaiting MRI lumbar spine when stable do not believe recent spine infection is playing any role in current illness D/w nursing KOKO JONES MD Feb 08, 2019 07:26
[2019-02-08] MEDS: BUDESONIDE 0.5 MG/2 ML NEBU. NEB SCH ×2 (08:04→19:51)
[2019-02-08] MEDS: IPRATRPIUM/ALBUTEROL 0.5/2.5MG 3 ML NEBU. NEB SCH ×4 (08:04→19:51)
[2019-02-08] MEDS: levETIRAcetam 500 MG in IV DEXTROSE 5% 100ML 100 ML IV SCH ×2 (08:22→20:46)
[2019-02-08] MEDS: NICOTINE 21MG PATCH. TD SCH (08:24)
--- NOTE | 2019-02-08 08:30 | RAD ---
Single view of the chest. 02/08/2019 5:41 AM Indication: respiratory failure Comparison: February 06, 2019 Findings: There is been interval extubation and removal of enteric tube. The heart is enlarged. Central vascular congestion and interstitial thickening mildly increased in the interim. The tip of the right upper extremity PICC line is poorly visualized, possibly secondary to motion. Hazy opacity in the mid and right lung base may represent small layering effusion. Underlying infiltrate not excluded. Chronic left-sided rib deformities again noted. An acute osseous changes not seen IMPRESSION: 1. Interval extubation and removal of enteric tube 2. Cardiomegaly, central vascular congestion, and probable interstitial edema, slightly increased in the interim 3. Probable small right layering pleural effusion. Underlying infiltrate not excluded Electronically signed by: Lele Salazar MD (02/08/2019 8:28 AM) [id number]
[2019-02-08] MEDS ORDERED: FUROSEMIDE 40 MG/4 ML VIAL. IVP ONE (09:30)
[2019-02-08 09:44] LABS: BASE EXCESS ABG 0 mmol/L (-3-3); HCO3 ABG 26 mmol/L (21-28); PCO2 ABG 49 mmHg (35-46); PO2 ABG 70 mmHg (65-108); SAT O2 ABG 92 % (92-99)
[2019-02-08 09:45] LABS: FIO2 ABG 30
[2019-02-08 10:05] LABS: BASO % 0 % (0-3); EOS % 0 % (0-3); HEMATOCRIT 30.6 % (39.0-53.0); HEMOGLOBIN 10.2 g/dL (13.0-17.5); LYMPH # 0.4 x10^3/uL (1.0-4.8); LYMPH % 5 % (24-48); MEAN CORPUSCULAR HEMOGLOBIN 32 pg (25-35); MEAN CORPUSCULAR HGB CONC 33 g/dL (31-37); MEAN CORPUSCULAR VOLUME 94 fL (79-100); MONO # 1.1 x10^3/uL (0.0-1.1); MONO % 11 % (0-9); NEUT # 7.8 x10^3uL (1.8-7.7); NEUT % 83 % (31-73); PLATELET COUNT 223 x10^3/uL (140-400); RED BLOOD COUNT 3.25 x10^6/uL (4.30-5.70); RED CELL DISTRIBUTION WIDTH 14.1 % (11.5-14.5); WHITE BLOOD COUNT 9.3 x10^3/uL (4.0-11.0)
--- NOTE | 2019-02-08 11:07 | PDOC ---
JOAQUINA PEREZ ARTS ADMINISTRATOR OR MANAGER 02/08/19 1107: CARDIO Progress Notes Date and Time Date of Service 02/08/2019 Time of Evaluation 1030 Subjective Subjective: Other (sedated; on BiPAP) Vitals Vitals Vital Signs Date Time Temp Pulse Resp B/P (MAP) Pulse Ox O2 Delivery O2 Flow Rate FiO2 02/08/19 10:00 85 35 132/82 (99) 98 BiPAP/CPAP 02/08/19 07:00 97.8 97.8 02/07/19 09:05 3.0 Weight Weight [ ] Input and Output Intake and Output Intake and Output 02/08/19 07:00 Intake Total 2959 ml Output Total 1970 ml Balance 989 ml IV Total 2959 ml Output Urine Total 1970 ml Laboratory Labs Laboratory Tests Test 02/08/19 09:35 02/08/19 09:50 O2 Saturation 92 % (92-99) Arterial Blood pH 7.34 (7.35-7.45) Arterial Blood pCO2 at Patient Temp 49 mmHg (35-46) Arterial Blood pO2 at Patient Temp 70 mmHg (65-108) Arterial Blood HCO3 26 mmol/L (21-28) Arterial Blood Base Excess 0 mmol/L (-3-3) FiO2 30 White Blood Count 9.3 x10^3/uL (4.0-11.0) Red Blood Count 3.25 x10^6/uL (4.30-5.70) Hemoglobin 10.2 g/dL (13.0-17.5) Hematocrit 30.6 % (39.0-53.0) Mean Corpuscular Volume 94 fL (79-100) Mean Corpuscular Hemoglobin 32 pg (25-35) Mean Corpuscular Hemoglobin Concent 33 g/dL (31-37) Red Cell Distribution Width 14.1 % (11.5-14.5) Platelet Count 223 x10^3/uL (140-400) Neutrophils (%) (Auto) 83 % (31-73) Lymphocytes (%) (Auto) 5 % (24-48) Monocytes (%) (Auto) 11 % (0-9) Eosinophils (%) (Auto) 0 % (0-3) Basophils (%) (Auto) 0 % (0-3) Neutrophils # (Auto) 7.8 x10^3uL (1.8-7.7) Lymphocytes # (Auto) 0.4 x10^3/uL (1.0-4.8) Monocytes # (Auto) 1.1 x10^3/uL (0.0-1.1) Eosinophils # (Auto) 0.0 x10^3/uL (0.0-0.7) Basophils # (Auto) 0.0 x10^3/uL (0.0-0.2) Microbiology Micro Microbiology 02/04/19 Blood Culture - Preliminary, Resulted NO GROWTH AFTER 3 DAYS 02/05/19 - Final, Resulted 02/05/19 - Final, Resulted 02/05/19 - Final, Resulted 02/05/19 Gram Stain Evaluation - Final, Resulted 02/05/19 Sputum Culture, Resulted Pending Physical Exam HEENT: Neck Supple W Full Motion Chest: Symmetric LUNGS: Other (diminished bases) Heart: irregularly irregular (AFIB) Abdomen: Other (obese) Extremities: 2+ Dorsalis Pedis, Other (trace to 1+ bilateral LE edema ) Neurology: other (sedated) Assessment Assessment 1. Acute hypoxic respiratory failure; extubated 02/07, Bipap in place 2. NSTEMI; peak 2.514. suspect demand mediated, multifactorial. Echo showed preserved LV systolic function with an EF of 65%. RV mild to moderately dilated. 3. Post surgical epidural abscess; s/p I & D, unable to proceed with MRI with bipap and restlessness issues 4. Leukocytosis, lactic acidosis, possible sepsis. ? aspiration 5. Permanent AFIB; rate controlled, burst of RVR with agitation, sedated with both with ativan and precedex 6. AL, hyperkalemia; improved 7. Transaminitis with shock liver; improving 8. Metabolic encephalopathy; requiring sedation due to agitation 9. Acute on Chronic diastolic CHF 10. Metabolic encephalopathy with hx of seizures Recommendations 1. Remains on Bipap and sedation managed by pulmonary. 2. Ongoing antibiotic therapy. Neurology/ID following. Lasix PRN 3. Eliquis on hold until HAIR BLENDER abscess is clarified via MRI and any need of invasive procedure. Meantime ASA for stroke prevention. 4. Will need ischemic evaluation when acute issue resolve, possibly as an outpatient 5. Start on low dose IV lopressor TONIO KIM MD 02/08/19 1712: CARDIO Progress Notes Plan Plan Pt. seen and examined. Agree with above [employer] note. No new changes. Needed intubation for MRI. Brain MRI wnl. L-spine pending Irregular heart tones. No LE edema. CXR grossly unchanged. ?developing right sided pleural effusion. HR stable. On ASA CO. Supportive care for now. Outpt ischemic w/u. Patients feels that [facility] may have given him medications that may have sedated them. She feels accused by the [facility] folks of sedating her although she feels she did not do anything. will have charge nurse at [facility] call her and help clarify any issues. Thanks JOAQUINA PEREZ APRN Feb 08, 2019 11:07 TONIO KIM MD Feb 08, 2019 17:12
[2019-02-08] MEDS: ASPIRIN RECTAL 300 MG SUPP. PR SCH (11:27)
[2019-02-08] MEDS: AMINO AC 3%/ELECTROLYTE/GLYCER 1,000 ML IV SCH (11:27)
--- NOTE | 2019-02-08 11:42 | PDOC ---
PULMONARY PROGRESS NOTES Subjective extubated 02/06 very restless, on PRN ativan/ fentanyl BIPAP Vitals Vital Signs Date Time Temp Pulse Resp B/P (MAP) Pulse Ox O2 Delivery O2 Flow Rate FiO2 02/08/19 11:00 98.3 92 40 149/95 (113) 100 BiPAP/CPAP 98.3 02/07/19 09:05 3.0 Comments r General: Lethargic Lungs: Other (decrease bases) Cardiovascular: Other (irreg irreg) Abdomen: Soft, Non-tender Extremities: Other (trace edema) Skin: Warm Labs Laboratory Tests Test 02/06/19 15:53 02/07/19 09:00 02/07/19 09:05 02/08/19 09:35 O2 Saturation 91 % (92-99) 91 % (92-99) 92 % (92-99) Arterial Blood pH 7.38 (7.35-7.45) 7.27 (7.35-7.45) 7.34 (7.35-7.45) Arterial Blood pCO2 at Patient Temp 40 mmHg (35-46) 56 mmHg (35-46) 49 mmHg (35-46) Arterial Blood pO2 at Patient Temp 67 mmHg (65-108) 71 mmHg (65-108) 70 mmHg (65-108) Arterial Blood HCO3 23 mmol/L (21-28) 25 mmol/L (21-28) 26 mmol/L (21-28) Arterial Blood Base Excess -2 mmol/L (-3-3) -2 mmol/L (-3-3) 0 mmol/L (-3-3) FiO2 36 32 30 White Blood Count 8.9 x10^3/uL (4.0-11.0) Red Blood Count 3.20 x10^6/uL (4.30-5.70) Hemoglobin 10.0 g/dL (13.0-17.5) Hematocrit 30.2 % (39.0-53.0) Mean Corpuscular Volume 94 fL (79-100) Mean Corpuscular Hemoglobin 31 pg (25-35) Mean Corpuscular Hemoglobin Concent 33 g/dL (31-37) Red Cell Distribution Width 14.1 % (11.5-14.5) Platelet Count 227 x10^3/uL (140-400) Neutrophils (%) (Auto) 84 % (31-73) Lymphocytes (%) (Auto) 5 % (24-48) Monocytes (%) (Auto) 9 % (0-9) Eosinophils (%) (Auto) 1 % (0-3) Basophils (%) (Auto) 1 % (0-3) Neutrophils # (Auto) 7.4 x10^3uL (1.8-7.7) Lymphocytes # (Auto) 0.5 x10^3/uL (1.0-4.8) Monocytes # (Auto) 0.8 x10^3/uL (0.0-1.1) Eosinophils # (Auto) 0.1 x10^3/uL (0.0-0.7) Basophils # (Auto) 0.0 x10^3/uL (0.0-0.2) Sodium Level 143 mmol/L (136-145) Potassium Level 4.4 mmol/L (3.5-5.1) Chloride Level 108 mmol/L (98-107) Carbon Dioxide Level 26 mmol/L (21-32) Anion Gap 9 (6-14) Blood Urea Nitrogen 13 mg/dL (8-26) Creatinine 0.7 mg/dL (0.7-1.3) Estimated GFR (Cockcroft-Gault) 115.0 BUN/Creatinine Ratio 19 (6-20) Glucose Level 106 mg/dL (70-99) Calcium Level 8.4 mg/dL (8.5-10.1) Total Bilirubin 0.7 mg/dL (0.2-1.0) Aspartate Amino Transf (AST/SGOT) 558 U/L (15-37) Alanine Aminotransferase (ALT/SGPT) 1398 U/L (16-63) Alkaline Phosphatase 83 U/L (46-116) Total Protein 6.6 g/dL (6.4-8.2) Albumin 2.8 g/dL (3.4-5.0) Albumin/Globulin Ratio 0.7 (1.0-1.7) Test 02/08/19 09:50 White Blood Count 9.3 x10^3/uL (4.0-11.0) Red Blood Count 3.25 x10^6/uL (4.30-5.70) Hemoglobin 10.2 g/dL (13.0-17.5) Hematocrit 30.6 % (39.0-53.0) Mean Corpuscular Volume 94 fL (79-100) Mean Corpuscular Hemoglobin 32 pg (25-35) Mean Corpuscular Hemoglobin Concent 33 g/dL (31-37) Red Cell Distribution Width 14.1 % (11.5-14.5) Platelet Count 223 x10^3/uL (140-400) Neutrophils (%) (Auto) 83 % (31-73) Lymphocytes (%) (Auto) 5 % (24-48) Monocytes (%) (Auto) 11 % (0-9) Eosinophils (%) (Auto) 0 % (0-3) Basophils (%) (Auto) 0 % (0-3) Neutrophils # (Auto) 7.8 x10^3uL (1.8-7.7) Lymphocytes # (Auto) 0.4 x10^3/uL (1.0-4.8) Monocytes # (Auto) 1.1 x10^3/uL (0.0-1.1) Eosinophils # (Auto) 0.0 x10^3/uL (0.0-0.7) Basophils # (Auto) 0.0 x10^3/uL (0.0-0.2) Laboratory Tests Test 02/08/19 09:35 02/08/19 09:50 O2 Saturation 92 % (92-99) Arterial Blood pH 7.34 (7.35-7.45) Arterial Blood pCO2 at Patient Temp 49 mmHg (35-46) Arterial Blood pO2 at Patient Temp 70 mmHg (65-108) Arterial Blood HCO3 26 mmol/L (21-28) Arterial Blood Base Excess 0 mmol/L (-3-3) FiO2 30 White Blood Count 9.3 x10^3/uL (4.0-11.0) Red Blood Count 3.25 x10^6/uL (4.30-5.70) Hemoglobin 10.2 g/dL (13.0-17.5) Hematocrit 30.6 % (39.0-53.0) Mean Corpuscular Volume 94 fL (79-100) Mean Corpuscular Hemoglobin 32 pg (25-35) Mean Corpuscular Hemoglobin Concent 33 g/dL (31-37) Red Cell Distribution Width 14.1 % (11.5-14.5) Platelet Count 223 x10^3/uL (140-400) Neutrophils (%) (Auto) 83 % (31-73) Lymphocytes (%) (Auto) 5 % (24-48) Monocytes (%) (Auto) 11 % (0-9) Eosinophils (%) (Auto) 0 % (0-3) Basophils (%) (Auto) 0 % (0-3) Neutrophils # (Auto) 7.8 x10^3uL (1.8-7.7) Lymphocytes # (Auto) 0.4 x10^3/uL (1.0-4.8) Monocytes # (Auto) 1.1 x10^3/uL (0.0-1.1) Eosinophils # (Auto) 0.0 x10^3/uL (0.0-0.7) Basophils # (Auto) 0.0 x10^3/uL (0.0-0.2) Medications Active Scripts Medications Dose Route/Sig Max Daily Dose Days Date Category Unasyn 3 Gm Vial (Ampicillin Sodium/Sulbactam Na) 3 Gm Vial 2 Gm IV Q4HRS 45 01/05/19 Rx Oxycodone Hcl Immed.release (Oxycodone Hcl) 5 Mg Tablet 10 Mg PO PRN Q4HRS PRN 01/04/19 Rx Oxycontin (Oxycodone HCl) 15 Mg Tab.er.12h 15 Mg PO Q12HR 01/04/19 Rx Colace (Docusate Sodium) 100 Mg Capsule 100 Mg PO BID 30 12/09/18 Rx Hydrochlorothiazide Capsule (Hydrochlorothiazide) 12.5 Mg Capsule 25 Mg PO DAILY 11/29/18 Reported Proair Hfa Inhaler (Albuterol Sulfate) 8.5 Gm Hfa.aer.ad 2 Puff INH PRN Q6HRS PRN 11/29/18 Reported Albuterol Sulfate Neb Soln (Albuterol Sulfate) 2.5 Mg/3 Ml Vial.neb 2.5 Mg NEB PRN Q4-6HRS PRN 11/29/18 Reported Ipratropium [place] 0.2 Mg/1 Ml Solution 0.2 Mg IH PRN Q4-6HRS PRN 11/29/18 Reported Zoloft (Sertraline Hcl) 100 Mg Tablet 1 Tab PO DAILY 11/04/18 Reported Robaxin (Methocarbamol) 500 Mg Tablet 500 Mg PO QID PRN 11/04/18 Reported Azelastine Hcl 6 Ml Drops 1 Drop EACHEYE PRN DAILY PRN 11/04/18 Reported Lisinopril 10 Mg Tablet 10 Mg PO DAILY 08/12/17 Reported Lasix (Furosemide) 20 Mg Tablet 20 Mg PO DAILY 08/12/17 Reported Tamsulosin Hcl 0.4 Mg Cap.er.24h 0.4 Mg PO DAILY 08/12/17 Reported Montelukast Sodium Tablet (Montelukast Sodium) 10 Mg Tablet 10 Mg PO HS 08/12/17 Reported Metoprolol Tartrate 25 Mg Tablet 25 Mg PO BID 07/11/16 Rx Omeprazole 20 Mg Capsule.dr 20 Mg PO DAILY 07/09/16 Reported Topiramate 50 Mg Tablet 1 Tab PO BID 07/09/16 Reported Daliresp (Roflumilast) 500 Mcg Tablet 500 Mcg PO DAILY 07/09/16 Reported Comments reviewed cxr, 02/08 increase bilateral infiltrates/ RLL consolidation Impression . 1. Acute respiratory failure, multifactorial in etiology. 2. Abnormal chest x-ray.c/w RLL pneumonia, now superimposed CHF 3. Acute kidney injury. Electrolyte abnormality. improving 4. Elevated troponin, non-ST elevation myocardial infarction. 5. Atrial fibrillation with rapid ventricular response, now rate controlled. 6. Hyperkalemia. resolved 7. Status post back surgery, epidural abscess, incision and drainage, on antibiotic.? extension to brain 8. Chronic obstructive pulmonary disease. 9. Acute diastolic congestive heart failure. 10. sepsis, ? aspiration 11. Obstructive sleep apnea-hypopnea syndrome. 12. elevated LFTs improving/ shock liver 13. Encephalopathy/ ? extension of epidural abscess to brain, ?Nicotine withdrawl/ ? ETOH withdrawl, /sepsis Plan . 1. BIPAP for now/ ABG reasonable 2. PRN ativan/ fentanyl/ watch resp status closely 3. bronchodilator. 4. May need elective intubation if cannot take BIPAP for MRI 5. Pepcid for stress ulcer prophylaxis. 6. Monitor potassium and creatinine. 7. fu Sputum culture. 8. abx per id 9. Cardiology on case 10. Monitor respiratory status very closely. 11. extra lasix today. 12. He is on heparin drip per cardiology. Monitor for bleeding. discussed with RN/ and cardiology awaiting MRI spine/ brain/ cct 30 min. FOREIGN GOODE MD Feb 08, 2019 11:42
--- NOTE | 2019-02-08 12:04 | PDOC ---
PROGRESS NOTES Assessment Problems Medical Problems: (1) Altered mental status Status: Acute (2) Elevated LFTs Status: Acute (3) Hyperkalemia Status: Acute Metabolic encephalopathy Seizures, has a history of seizure related to hypoxia in the past Lumbar spine abscess Medical problems: obstructive sleep apnea, atrial fibrillation, chronic obstructive pulmonary disease, congestive heart failure Plan Awaiting MRI of the brain and lumbar spine. To sedate him properly, he likely needs intubation. I asked nurse to communicate this to Dr. Leos, I'll call him if any questions I discussed with family. Subjective None Objective Vital Signs Date Time Temp Pulse Resp B/P (MAP) Pulse Ox O2 Delivery O2 Flow Rate FiO2 02/08/19 11:00 98.3 92 40 149/95 (113) 100 BiPAP/CPAP 98.3 02/07/19 09:05 3.0 Intake and Output 02/08/19 06:59 Intake Total 2909 ml Output Total 1895 ml Balance 1014 ml IV Total 2909 ml Output Urine Total 1895 ml PHYSICAL EXAM Sedated, not responsive to verbal stimuli, on BiPAP PERRL. EOMI. CN: no focal findings. Muscle tone: normal. Muscle strength: no movement to light pain DTR: 1+ Plantar reflex: silent Gait: not examined in bed. Sensory exam: not cooperative. Cerebellar: not cooperative Review of Relevant I have reviewed the following items valerie (where applicable) has been applied. Labs Laboratory Tests Test 02/06/19 15:53 02/07/19 09:00 02/07/19 09:05 02/08/19 09:35 O2 Saturation 91 % (92-99) 91 % (92-99) 92 % (92-99) Arterial Blood pH 7.38 (7.35-7.45) 7.27 (7.35-7.45) 7.34 (7.35-7.45) Arterial Blood pCO2 at Patient Temp 40 mmHg (35-46) 56 mmHg (35-46) 49 mmHg (35-46) Arterial Blood pO2 at Patient Temp 67 mmHg (65-108) 71 mmHg (65-108) 70 mmHg (65-108) Arterial Blood HCO3 23 mmol/L (21-28) 25 mmol/L (21-28) 26 mmol/L (21-28) Arterial Blood Base Excess -2 mmol/L (-3-3) -2 mmol/L (-3-3) 0 mmol/L (-3-3) FiO2 36 32 30 White Blood Count 8.9 x10^3/uL (4.0-11.0) Red Blood Count 3.20 x10^6/uL (4.30-5.70) Hemoglobin 10.0 g/dL (13.0-17.5) Hematocrit 30.2 % (39.0-53.0) Mean Corpuscular Volume 94 fL (79-100) Mean Corpuscular Hemoglobin 31 pg (25-35) Mean Corpuscular Hemoglobin Concent 33 g/dL (31-37) Red Cell Distribution Width 14.1 % (11.5-14.5) Platelet Count 227 x10^3/uL (140-400) Neutrophils (%) (Auto) 84 % (31-73) Lymphocytes (%) (Auto) 5 % (24-48) Monocytes (%) (Auto) 9 % (0-9) Eosinophils (%) (Auto) 1 % (0-3) Basophils (%) (Auto) 1 % (0-3) Neutrophils # (Auto) 7.4 x10^3uL (1.8-7.7) Lymphocytes # (Auto) 0.5 x10^3/uL (1.0-4.8) Monocytes # (Auto) 0.8 x10^3/uL (0.0-1.1) Eosinophils # (Auto) 0.1 x10^3/uL (0.0-0.7) Basophils # (Auto) 0.0 x10^3/uL (0.0-0.2) Sodium Level 143 mmol/L (136-145) Potassium Level 4.4 mmol/L (3.5-5.1) Chloride Level 108 mmol/L (98-107) Carbon Dioxide Level 26 mmol/L (21-32) Anion Gap 9 (6-14) Blood Urea Nitrogen 13 mg/dL (8-26) Creatinine 0.7 mg/dL (0.7-1.3) Estimated GFR (Cockcroft-Gault) 115.0 BUN/Creatinine Ratio 19 (6-20) Glucose Level 106 mg/dL (70-99) Calcium Level 8.4 mg/dL (8.5-10.1) Total Bilirubin 0.7 mg/dL (0.2-1.0) Aspartate Amino Transf (AST/SGOT) 558 U/L (15-37) Alanine Aminotransferase (ALT/SGPT) 1398 U/L (16-63) Alkaline Phosphatase 83 U/L (46-116) Total Protein 6.6 g/dL (6.4-8.2) Albumin 2.8 g/dL (3.4-5.0) Albumin/Globulin Ratio 0.7 (1.0-1.7) Test 02/08/19 09:50 White Blood Count 9.3 x10^3/uL (4.0-11.0) Red Blood Count 3.25 x10^6/uL (4.30-5.70) Hemoglobin 10.2 g/dL (13.0-17.5) Hematocrit 30.6 % (39.0-53.0) Mean Corpuscular Volume 94 fL (79-100) Mean Corpuscular Hemoglobin 32 pg (25-35) Mean Corpuscular Hemoglobin Concent 33 g/dL (31-37) Red Cell Distribution Width 14.1 % (11.5-14.5) Platelet Count 223 x10^3/uL (140-400) Neutrophils (%) (Auto) 83 % (31-73) Lymphocytes (%) (Auto) 5 % (24-48) Monocytes (%) (Auto) 11 % (0-9) Eosinophils (%) (Auto) 0 % (0-3) Basophils (%) (Auto) 0 % (0-3) Neutrophils # (Auto) 7.8 x10^3uL (1.8-7.7) Lymphocytes # (Auto) 0.4 x10^3/uL (1.0-4.8) Monocytes # (Auto) 1.1 x10^3/uL (0.0-1.1) Eosinophils # (Auto) 0.0 x10^3/uL (0.0-0.7) Basophils # (Auto) 0.0 x10^3/uL (0.0-0.2) Laboratory Tests Test 02/08/19 09:35 02/08/19 09:50 O2 Saturation 92 % (92-99) Arterial Blood pH 7.34 (7.35-7.45) Arterial Blood pCO2 at Patient Temp 49 mmHg (35-46) Arterial Blood pO2 at Patient Temp 70 mmHg (65-108) Arterial Blood HCO3 26 mmol/L (21-28) Arterial Blood Base Excess 0 mmol/L (-3-3) FiO2 30 White Blood Count 9.3 x10^3/uL (4.0-11.0) Red Blood Count 3.25 x10^6/uL (4.30-5.70) Hemoglobin 10.2 g/dL (13.0-17.5) Hematocrit 30.6 % (39.0-53.0) Mean Corpuscular Volume 94 fL (79-100) Mean Corpuscular Hemoglobin 32 pg (25-35) Mean Corpuscular Hemoglobin Concent 33 g/dL (31-37) Red Cell Distribution Width 14.1 % (11.5-14.5) Platelet Count 223 x10^3/uL (140-400) Neutrophils (%) (Auto) 83 % (31-73) Lymphocytes (%) (Auto) 5 % (24-48) Monocytes (%) (Auto) 11 % (0-9) Eosinophils (%) (Auto) 0 % (0-3) Basophils (%) (Auto) 0 % (0-3) Neutrophils # (Auto) 7.8 x10^3uL (1.8-7.7) Lymphocytes # (Auto) 0.4 x10^3/uL (1.0-4.8) Monocytes # (Auto) 1.1 x10^3/uL (0.0-1.1) Eosinophils # (Auto) 0.0 x10^3/uL (0.0-0.7) Basophils # (Auto) 0.0 x10^3/uL (0.0-0.2) Microbiology 02/04/19 Blood Culture - Preliminary, Resulted NO GROWTH AFTER 3 DAYS 02/05/19 - Final, Resulted 02/05/19 - Final, Resulted 02/05/19 - Final, Resulted 02/05/19 Gram Stain Evaluation - Final, Resulted 02/05/19 Sputum Culture, Resulted Pending Medications Current Medications Sodium Chloride 1,000 ml @ 1,000 mls/hr 1X ONCE IV Last administered on at 15:03; Start 02/04/19 at 15:15; Stop 02/04/19 at 16:14; Status DC Midazolam HCl (Versed) 2 mg 1X ONCE IV Last administered on 02/04/19at 15:05; Start 02/04/19 at 15:15; Stop 02/04/19 at 15:16; Status DC Piperacillin Sod/ Tazobactam Sod (Zosyn Per Pharmacy) 1 each PRN DAILY PRN MC SEE COMMENTS; Start 02/04/19 at 15:15 Fentanyl Citrate (Fentanyl 2ml Vial) 50 mcg 1X ONCE IV ; Start 02/04/19 at 15: 15; Stop 02/04/19 at 15:16; Status DC Piperacillin Sod/ Tazobactam Sod 4.5 gm/Sodium Chloride 100 ml @ 200 mls/hr 1X ONCE IV Last administered on 02/04/19at 15:33; Start 02/04/19 at 16:00; Stop 02/04/19 at 16:29; Status DC Etomidate (Amidate) 20 mg STK-MED ONCE IV ; Start 02/04/19 at 15:22; Stop at 15:23; Status DC Naloxone HCl (Narcan) 2 mg STK-MED ONCE .ROUTE ; Start 02/04/19 at 15:22; Stop 02/04/19 at 15:23; Status DC Rocuronium [place] (Zemuron) 50 mg STK-MED ONCE .ROUTE ; Start 02/04/19 at 15:23 ; Stop 02/04/19 at 15:24; Status DC Propofol (Diprivan) 200 mg 1X ONCE IV Last administered on 02/04/19at 16:10; Start 02/04/19 at 15:45; Stop 02/04/19 at 15:46; Status DC Sodium Chloride 1,000 ml @ 1,000 mls/hr 1X ONCE IV Last administered on at 16:05; Start 02/04/19 at 16:00; Stop 02/04/19 at 16:59; Status DC Aspirin (Aspirin) 300 mg 1X STAT SD Last administered on 02/04/19at 17:11; Start 02/04/19 at 15:52; Stop 02/04/19 at 15:55; Status DC Sodium Bicarbonate (Sodium Bicarb Adult 8.4% Syr) 50 meq 1X ONCE IV Last administered on 02/04/19at 17:11; Start 02/04/19 at 16:00; Stop 02/04/19 at 16:01 ; Status DC Levetiracetam 1000 mg/Dextrose 110 ml @ 440 mls/hr 1X ONCE IV Last administered on 02/04/19at 16:54; Start 02/04/19 at 16:00; Stop 02/04/19 at 16:14 ; Status DC Calcium Gluconate (Calcium Gluconate) 1,000 mg 1X ONCE IVP Last administered on 02/04/19at 17:01; Start 02/04/19 at 16:00; Stop 02/04/19 at 16:01; Status DC Propofol 50 ml @ As Directed STK-MED ONCE IV ; Start 02/04/19 at 16:05; Stop at 16:06; Status DC Sodium Chloride 1,000 ml @ 125 mls/hr Q8H IV Last administered on 02/05/19at 07 :12; Start 02/04/19 at 16:09; Stop 02/05/19 at 15:19; Status DC Piperacillin Sod/ Tazobactam Sod 3.375 gm/Sodium Chloride 50 ml @ 100 mls/hr Q6HRS IV Last administered on 02/08/19at 11:27; Start 02/05/19 at 00:00 Etomidate (Amidate) 20 mg 1X ONCE IV Last administered on 02/04/19at 15:00; Start 02/04/19 at 16:45; Stop 02/04/19 at 16:46; Status DC Rocuronium [place] (Zemuron) 100 mg 1X ONCE IV Last administered on 02/04/19at 15:00; Start 02/04/19 at 16:45; Stop 02/04/19 at 16:46; Status DC Naloxone HCl (Narcan) 2 mg 1X ONCE IV Last administered on 02/04/19at 14:57; Start 02/04/19 at 16:45; Stop 02/04/19 at 16:46; Status DC Norepinephrine Bitartrate 250 ml @ 1.875 mls/ hr CONT PRN IV SEE I/O RECORD; Start 02/04/19 at 17:30 Dopamine HCl/ Dextrose 250 ml @ As Directed STK-MED ONCE IV ; Start 02/04/19 at 17:25; Stop 02/04/19 at 17:26; Status DC Fentanyl Citrate (Fentanyl 2ml Vial) 50 mcg 1X ONCE IV ; Start 02/04/19 at 17: 45; Stop 02/04/19 at 17:46; Status DC Midazolam HCl (Versed) 2 mg 1X ONCE IV ; Start 02/04/19 at 17:45; Stop at 17:46; Status DC Propofol 100 ml @ As Directed STK-MED ONCE IV ; Start 02/04/19 at 18:45; Stop 02/04/19 at 18:46; Status DC Propofol 100 ml @ 1.905 mls/ hr CONT PRN IV SEE I/O RECORD; Start 02/04/19 at 18:45 Fentanyl Citrate 30 ml @ 0 mls/hr CONT PRN IV SEE PROTOCOL Last administered on 02/08/19at 09:31; Start 02/04/19 at 19:45 Midazolam HCl 100 ml @ 0 mls/hr CONT PRN IV SEE PROTOCOL Last administered on at 01:52; Start 02/04/19 at 19:45 Heparin Sodium/ Dextrose 500 ml @ 0 mls/hr CONT PRN IV SEE I/O RECORD Last administered on 02/06/19at 01:53; Start 02/04/19 at 22:45; Stop 02/06/19 at 12:32 ; Status DC Info (Anti-Coagulation Monitoring By Pharmacy) 1 each PRN DAILY PRN MC SEE COMMENTS Last administered on 02/06/19at 07:57; Start 02/04/19 at 22:45; Stop at 12:34; Status DC Heparin Sodium (Porcine) (Heparin Sodium) 3,250 unit PRN Q6HRS PRN IV FOR UFH LEVEL LESS THAN 0.2 Last administered on 02/05/19at 22:31; Start 02/05/19 at 01: 30; Stop 02/06/19 at 12:32; Status DC Albuterol/ Ipratropium (Duoneb) 3 ml RTQID NEB Last administered on 02/08/19at 08:04; Start 02/05/19 at 08:00 Budesonide (Pulmicort) 0.5 mg RTBID NEB Last administered on 02/08/19at 08:04; Start 02/05/19 at 08:00 Famotidine (Pepcid Vial) 20 mg QHS IVP Last administered on 02/07/19at 20:35; Start 02/05/19 at 21:00 Sodium Chloride 1,000 ml @ 125 mls/hr Q8HRS IV ; Start 02/05/19 at 15:30; Status UNV Levetiracetam 500 mg/Dextrose 105 ml @ 420 mls/hr Q12HR IV Last administered on 02/08/19at 08:22; Start 02/05/19 at 16:30 Sodium Chloride 1,000 ml @ 125 mls/hr Q8H IV Last administered on 02/07/19at 00 :00; Start 02/05/19 at 16:00; Stop 02/07/19 at 08:31; Status DC Aspirin (Children'S Aspirin) 81 mg DAILYWBKFT PO ; Start 02/06/19 at 09:30; Stop 02/08/19 at 11:04; Status DC Potassium Chloride/Water 50 ml @ 50 mls/hr 1X ONCE IV Last administered on at 12:19; Start 02/06/19 at 12:00; Stop 02/06/19 at 12:59; Status DC Hydralazine HCl (Apresoline Inj) 10 mg PRN Q3HRS PRN IVP ELEVATED BP, SEE COMMENTS Last administered on 02/07/19at 12:16; Start 02/06/19 at 11:45 Fentanyl Citrate (Fentanyl 2ml Vial) 50 mcg PRN Q3HRS PRN IV PAIN Last administered on 02/08/19at 09:06; Start 02/06/19 at 11:45 Dexmedetomidine HCl 200 mcg/ Sodium Chloride 50 ml @ 0 mls/hr CONT PRN IV PER PROTOCOL Last administered on 02/08/19at 11:53; Start 02/06/19 at 13:30 Sodium Chloride 500 ml @ 500 mls/hr 1X PRN PRN IV SEE COMMENTS; Start at 13:30 Atropine Sulfate (ATROPINE 0.5mg SYRINGE) 0.5 mg PRN Q5MIN PRN IV SEE COMMENTS ; Start 02/06/19 at 13:30 Haloperidol Lactate (Haldol Inj) 2.5 mg 1X PRN PRN IVP AGITATION Last administered on 02/07/19at 07:04; Start 02/06/19 at 16:30; Stop 02/07/19 at 07:04 ; Status DC Haloperidol Lactate (Haldol Inj) 2.5 mg 1X PRN PRN IVP AGITATION; Start at 16:30; Status UNV Albuterol Sulfate (Ventolin Neb Soln) 2.5 mg 1X ONCE NEB Last administered on 02/07/19at 02:13; Start 02/07/19 at 02:15; Stop 02/07/19 at 02:16; Status DC Lorazepam (Ativan) 1 mg PRN Q1HR PRN IV ANXIETY / AGITATION Last administered on 02/08/19 09:06; Start 02/07/19 at 07:45 Amino Acids/ Glycerin/ Electrolytes 1,000 ml @ 80 mls/hr [id number] IV Last administered on 02/08/19 11:27; Start 02/07/19 at 08:30 Propofol (Diprivan) 1,000 mg STK-MED ONCE IV ; Start 02/04/19 at 19:00; Stop at 09:01; Status DC Nicotine (Nicoderm Cq 21mg) 1 patch DAILY TD Last administered on 02/08/19at 08: 24; Start 02/07/19 at 11:45 Sodium Bicarbonate (Sodium Bicarb Adult 8.4% Syr) 50 meq 1X ONCE IV Last administered on 02/07/19at 12:16; Start 02/07/19 at 11:45; Stop 02/07/19 at 11:46 ; Status DC Furosemide (Lasix) 40 mg 1X ONCE IVP Last administered on 02/08/19 09:08; Start 02/08/19 at 09:30; Stop 02/08/19 at 09:31; Status DC Aspirin (Aspirin) 150 mg DAILY SD Last administered on 02/08/19at 11:27; Start 02/08/19 at 11:30 Active Scripts Active Unasyn 3 Gm Vial (Ampicillin Sodium/Sulbactam Na) 3 Gm Vial 2 Gm IV Q4HRS 45 Days Colace (Docusate Sodium) 100 Mg Capsule 100 Mg PO BID 30 Days Metoprolol Tartrate 25 Mg Tablet 25 Mg PO BID Reported Ambien (Zolpidem Tartrate) 10 Mg Tablet 10 Mg PO PRN QHS PRN Ibuprofen 600 Mg Tablet 600 Mg PO PRN Q6HRS PRN Dulcolax (Bisacodyl) 5 Mg Tablet.dr 10 Mg PO PRN DAILY PRN Mucinex Dm Er 600-30 Mg Tablet (Guaifenesin/Dextromethorphan) 1 Each Tab.er.12h 1 Tab PO BID FENTANYL 100mcg/hr (Fentanyl) 1 Each Patch.td72 1 Patch TD Q48H Gabapentin 600 Mg Tablet 600 Mg PO TID Oxycodone Hcl 5 Mg Capsule 30 Mg PO Q4HRS PRN Hydrochlorothiazide Capsule (Hydrochlorothiazide) 12.5 Mg Capsule 25 Mg PO DAILY Proair Hfa Inhaler (Albuterol Sulfate) 8.5 Gm Hfa.aer.ad 2 Puff INH PRN Q6HRS PRN Albuterol Sulfate Neb Soln (Albuterol Sulfate) 2.5 Mg/3 Ml Vial.neb 2.5 Mg NEB PRN Q4-6HRS PRN Ipratropium [place] 0.2 Mg/1 Ml Solution 0.2 Mg IH PRN Q4-6HRS PRN Zoloft (Sertraline Hcl) 100 Mg Tablet 1 Tab PO DAILY Robaxin (Methocarbamol) 500 Mg Tablet 750 Mg PO Q8HRS PRN Azelastine Hcl 6 Ml Drops 1 Drop EACHEYE PRN DAILY PRN Lisinopril 10 Mg Tablet 10 Mg PO DAILY Lasix (Furosemide) 20 Mg Tablet 20 Mg PO DAILY Tamsulosin Hcl 0.4 Mg Cap.er.24h 0.4 Mg PO DAILY Montelukast Sodium Tablet (Montelukast Sodium) 10 Mg Tablet 10 Mg PO HS Omeprazole 20 Mg Capsule.dr 20 Mg PO DAILY Topiramate 50 Mg Tablet 1 Tab PO BID Daliresp (Roflumilast) 500 Mcg Tablet 500 Mcg PO DAILY Vitals/I & O Vital Sign - Last 24 Hours 02/07/19 02/07/19 02/07/19 02/07/19 12:00 12:00 12:16 12:30 Temp 98.8 98.8 Pulse 68 64 Resp 26 B/P (MAP) 160/114 (129) 160/114 Pulse Ox 97 98 O2 Delivery Bi-pap BiPAP/CPAP BiPAP/CPAP 02/07/19 02/07/19 02/07/19 02/07/19 13:00 14:00 15:00 15:27 Pulse 70 78 70 Resp 25 35 31 B/P (MAP) 134/76 (95) 152/87 (108) 140/91 (107) Pulse Ox 98 98 100 100 O2 Delivery BiPAP/CPAP BiPAP/CPAP BiPAP/CPAP BiPAP/CPAP 02/07/19 02/07/19 02/07/19 02/07/19 16:00 16:00 17:00 17:03 Temp 98.1 98.1 Pulse 70 73 Resp 29 35 20 B/P (MAP) 157/91 (113) 138/98 (111) Pulse Ox 99 99 O2 Delivery BiPAP/CPAP Bi-pap BiPAP/CPAP Ventilator 02/07/19 02/07/19 02/07/19 02/07/19 17:33 18:00 19:00 19:14 Pulse 66 71 Resp 30 32 20 B/P (MAP) 167/102 (123) 129/87 (101) Pulse Ox 97 99 O2 Delivery BiPAP/CPAP BiPAP/CPAP BiPAP/CPAP BiPAP/CPAP 02/07/19 02/07/19 02/07/19 02/07/19 19:27 20:00 20:00 21:00 Temp 97.4 97.4 Pulse 71 69 Resp 32 34 B/P (MAP) 157/98 (117) 166/95 (118) Pulse Ox 100 99 98 O2 Delivery BiPAP/CPAP BiPAP/CPAP Bi-pap BiPAP/CPAP 02/07/19 02/07/19 02/07/19 02/07/19 21:38 22:00 23:00 23:44 Pulse 88 74 Resp 42 31 B/P (MAP) 177/101 (126) 146/88 (107) Pulse Ox 98 99 98 98 O2 Delivery BiPAP/CPAP BiPAP/CPAP BiPAP/CPAP BiPAP/CPAP 02/07/19 02/08/19 02/08/19 02/08/19 23:59 00:00 01:00 01:30 Temp 98.3 98.3 Pulse 90 76 Resp 40 31 B/P (MAP) 172/105 (127) 140/76 (97) Pulse Ox 98 98 98 O2 Delivery Bi-pap BiPAP/CPAP BiPAP/CPAP BiPAP/CPAP 02/08/19 02/08/19 02/08/19 02/08/19 02:00 02:09 03:00 04:00 Temp 98.6 98.6 Pulse 81 72 80 Resp 29 32 31 B/P (MAP) 148/85 (106) 133/83 (100) 155/97 (116) Pulse Ox 97 98 97 O2 Delivery BiPAP/CPAP BiPAP/CPAP BiPAP/CPAP BiPAP/CPAP 02/08/19 02/08/19 02/08/19 02/08/19 04:00 04:05 05:00 05:55 Pulse 88 Resp 40 B/P (MAP) 163/101 (121) Pulse Ox 97 99 96 O2 Delivery Bi-pap BiPAP/CPAP BiPAP/CPAP BiPAP/CPAP 02/08/19 02/08/19 02/08/19 02/08/19 06:00 07:00 08:00 08:00 Temp 97.8 97.8 Pulse 88 88 101 Resp 39 40 32 B/P (MAP) 152/83 (106) 175/100 (125) 157/100 (119) Pulse Ox 98 99 96 94 O2 Delivery BiPAP/CPAP BiPAP/CPAP BiPAP/CPAP BiPAP/CPAP 02/08/19 02/08/19 02/08/19 02/08/19 08:01 09:00 09:06 09:31 Pulse 83 Resp 38 20 20 B/P (MAP) 148/79 (102) Pulse Ox 99 O2 Delivery Bi-pap BiPAP/CPAP BiPAP/CPAP BiPAP/CPAP 02/08/19 02/08/19 02/08/19 02/08/19 09:35 09:36 10:00 10:00 Pulse 85 Resp 40 35 35 B/P (MAP) 132/82 (99) Pulse Ox 97 100 98 98 O2 Delivery BiPAP/CPAP BiPAP/CPAP BiPAP/CPAP 02/08/19 11:00 Temp 98.3 98.3 Pulse 92 Resp 40 B/P (MAP) 149/95 (113) Pulse Ox 100 O2 Delivery BiPAP/CPAP Intake and Output 02/07/19 02/07/19 02/08/19 14:59 22:59 06:59 Intake Total 347 ml 1161 ml 1401 ml Output Total 675 ml 725 ml 495 ml Balance -328 ml 436 ml 906 ml CISCO DE SOUZA MD Feb 08, 2019 12:04
[2019-02-08] MEDS ORDERED: PROPOFOL 100 ML IV PRN (13:00)
[2019-02-08] MEDS ORDERED: MIDAZOLAM 100mg/100ml NS BAG 100 ML IV PRN (13:00)
[2019-02-08] MEDS ORDERED: VECURONIUM BOLUS 10 MG VIAL. IV PRN (13:45)
--- NOTE | 2019-02-08 14:11 | RAD ---
EXAM: 1. AP View of the chest 2. AP view of the abdomen DATE: 02/08/2019 1:51 PM INDICATION: Evaluate support lines and tubes. Dyspnea. ET tube placement COMPARISON: 02/08/2019 FINDINGS: ET tube tip terminates approximately 6 cm above the pauline. Right upper extremity PICC tip projects over the right brachiocephalic vein. Enteric tube extends beyond the diaphragm, the tip projects over the body of the stomach.. Moderate cardiomegaly. Right pleural effusion with bilateral parenchymal opacities, likely from pulmonary edema or multifocal pneumonia, essentially unchanged accounting for differences in technique. Mediastinal and hilar contours are stable. No pneumothorax. Moderate colonic stool content. No definite evidence for bowel obstruction. IMPRESSION: Support lines and tubes as above. Right pleural effusion and bilateral parenchymal opacities are essentially stable accounting for differences in positioning/technique. Electronically signed by: Jorge Negron MD (02/08/2019 2:08 PM) [id number]
[2019-02-08] MEDS ORDERED: GADOBUTROL 7.5 MMOL/7.5 ML VIAL IV ONE ×2 (15:00)
--- NOTE | 2019-02-08 16:13 | RAD ---
MRI of the brain without contrast 02/08/2019 Clinical History: Altered mental status. Technique: Unenhanced T1-weighted sagittal and axial, T2-weighted axial and coronal and FLAIR, gradient echo and diffusion-weighted axial images of the brain were obtained. Findings: No previous imaging studies are available for comparison. There is generalized parenchymal atrophy. Patchy and a few small scattered areas of increased signal intensity are seen within the periventricular and subcortical white matter of both cerebral hemispheres on the FLAIR and T2-weighted images consistent with areas of mild small vessel ischemic disease. No acute parenchymal abnormality is seen. No extra-axial fluid collection is seen. There is no MRI evidence of acute ischemia/infarction. Mild to moderate mucosal thickening is seen scattered throughout the paranasal sinuses. There are small bilateral mastoid effusions. Normal flow voids are seen within the major vascular structures surrounding the brain parenchyma. Impression: No acute parenchymal abnormality is seen. Electronically signed by: Nba Dye MD (02/08/2019 4:10 PM) [id number]
--- NOTE | 2019-02-08 16:33 | PDOC ---
ICU PROGRESS NOTES Subjective sedated, on Bipap, still restless this am and needing pain meds Objective Objective sedated breathing somewhat labored on BiPap, no JVD shelter monitor observed abd obese but soft feet warm and without edema [place] in place with adequate output Vitals Vital Signs Date Time Temp Pulse Resp B/P (MAP) Pulse Ox O2 Delivery O2 Flow Rate FiO2 02/08/19 13:20 100 Ventilator 02/08/19 13:00 90 40 151/94 (113) 02/08/19 11:00 98.3 98.3 02/07/19 09:05 3.0 Input & Output Intake and Output 02/08/19 06:59 Intake Total 2909 ml Output Total 1895 ml Balance 1014 ml IV Total 2909 ml Output Urine Total 1895 ml Ventilator Settings O2 Flow Rate: 3.0 Oxygen Delivery Device: Ventilator O2 Humdified: HME Temperature (97-99 F): Yes FiO2: 100 SpO2: 100 DVT Prophylaxis DVT Prophylaxis yes, heparin Stress Ulcer Prophylaxis Stress Ulcer Prophylaxis yes Imaging Imaging portable Chest IMPRESSION: 1. Interval extubation and removal of enteric tube 2. Cardiomegaly, central vascular congestion, and probable interstitial edema, slightly increased in the interim 3. Probable small right layering pleural effusion. Underlying infiltrate not excluded Medications Medications Current Medications Aspirin (Aspirin) 150 mg DAILY ID Last administered on 02/08/19at 11:27; Start 02/08/19 at 11:30 Fentanyl Citrate 30 ml @ 0 mls/hr CONT PRN IV SEE PROTOCOL; Start 02/08/19 at 13:00; Status UNV Furosemide (Lasix) 40 mg 1X ONCE IVP Last administered on 02/08/19at 09:08; Start 02/08/19 at 09:30; Stop 02/08/19 at 09:31; Status DC Gadobutrol (Gadavist) 6 mmol 1X ONCE IV Last administered on 02/08/19at 15:12; Start 02/08/19 at 15:00; Stop 02/08/19 at 15:01; Status DC Gadobutrol (Gadavist) 6 mmol 1X ONCE IV Last administered on 02/08/19at 15:12; Start 02/08/19 at 15:00; Stop 02/08/19 at 15:01; Status DC Lorazepam (Ativan) 1 mg PRN Q1HR PRN IV SEE COMMENTS; Start 02/08/19 at 13:00 Lorazepam (Ativan) 2 mg PRN Q1HR PRN IV SEE COMMENTS; Start 02/08/19 at 13:00 Midazolam HCl 100 ml @ 0 mls/hr CONT PRN IV SEE PROTOCOL; Start 02/08/19 at 13: 00; Status UNV Morphine Sulfate (Morphine Sulfate) 2 mg PRN Q1HR PRN IV SEE COMMENTS.; Start 02/08/19 at 13:00 Morphine Sulfate (Morphine Sulfate) 4 mg PRN Q1HR PRN IV SEE COMMENTS.; Start 02/08/19 at 13:00 Propofol 100 ml @ 0 mls/hr CONT PRN IV SEE PROTOCOL; Start 02/08/19 at 13:00; Status UNV Vecuronium [place] (Norcuron Bolus) 6 mg PRN Q2HR PRN IV SEDATION; Start at 13:45 Physical Exam General: Lethargic Lungs: Other (decrease bases) Cardiovascular: Other (irreg irreg) Abdomen: Soft, Non-tender Extremities: Other (trace edema) Skin: Warm Impression . 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
[2019-02-08] MEDS: PROPOFOL 100 ML IV PRN ×2 (16:34→22:34)
--- NOTE | 2019-02-08 16:50 | RAD ---
MRI of the lumbar spine without and with contrast 01/11/2019 CLINICAL HISTORY: Low back pain with severe bilateral leg weakness. History of lumbar spine surgery. Epidural abscess. TECHNIQUE: Unenhanced T1-weighted and T2-weighted sagittal and axial and inversion recovery sagittal images of the lumbar spine were obtained. After the intravenous administration of 12 cc of Gadavist, enhanced T1-weighted sagittal and axial images the lumbar spine were obtained. FINDINGS: Comparison study is dated 12/29/2018. Mild S-shaped curvature of the thoracolumbar spine is seen. Degenerative signal changes are seen involving all of the disks of the lumbar spine. Degenerative signal changes are seen within the marrow surrounding these discs. A subacute compression fracture of the superior endplate of the T12 vertebral body is again seen. No retropulsion of bone fragments into the central spinal canal is noted. The conus medullaris is normal morphology, position, and signal characteristics. Increased signal intensity is seen on the T2-weighted images involving the L4-5 disc. Increased signal intensity is seen within the marrow surrounding this disc on the T2-weighted and inversion recovery images. This demonstrates decreased signal intensity on the T1-weighted images and varying degrees of enhancement. These findings have increased since the previous examination. They are concerning for discitis/osteomyelitis. Clinical correlation is recommended. The patient is post left hemilaminectomy at L4-5. The fluid collections within the laminectomy site seen on the previous examination have resolved. Increased soft tissue intensity is seen is seen within the anterior epidural space extending to the left of midline into the left neural foramen at this level which enhances with contrast. This could represent epidural scarring versus epidural phlegmon. The changes of degenerative disc disease are seen throughout the lumbar spine. These consist of mild to moderate generalized disc bulges. Degenerative changes involving the facet joints and mild to moderate ligamentum flavum hypertrophy along with prominence of posterior epidural fat. These findings result in mild central spinal canal stenosis at L2-3 and mild to moderate central spinal canal stenosis at L3-4 mild right neural foraminal stenosis is seen at L3-4. Moderate left neural foraminal stenosis is seen at L4-5. IMPRESSION: Findings are seen concerning for discitis/osteomyelitis at L4-5 as outlined above. Clinical correlation is recommended. Electronically signed by: Nba Dye MD (02/08/2019 4:47 PM) [id number]
[2019-02-08 17:21] LABS: BASE EXCESS ABG 1 mmol/L (-3-3); HCO3 ABG 26 mmol/L (21-28); PCO2 ABG 46 mmHg (35-46); PO2 ABG 117 mmHg (65-108); SAT O2 ABG 98 % (92-99)
[2019-02-08 17:24] LABS: FIO2 ABG 100
[2019-02-08] MEDS ORDERED: MINERAL OIL/PETROLATUM,WHITE OPHTH OINT 3.5GM TUBE. OU PRN (18:45)
[2019-02-08] MEDS: FAMOTIDINE 20 MG/2 ML VIAL IVP SCH (19:37)
[2019-02-09] VITALS (23 sets, daily range): BP systolic 95–163; BP diastolic 62–97
[2019-02-09] MEDS: DEXMEDETOMIDINE 200 MCG in IV NORMAL SALINE 50ML 48 ML IV PRN ×3 (01:28→08:58)
[2019-02-09] MEDS: PROPOFOL 100 ML IV PRN ×3 (04:27→14:57)
[2019-02-09] MEDS: PIPERACILLIN/TAZOBACTAM 3.375 GM in IV NORMAL SALINE 50ML 50 ML IV SCH ×4 (05:41→23:22)
[2019-02-09 06:05] LABS: BASO % 1 % (0-3); EOS # 0.4 x10^3/uL (0.0-0.7); EOS % 6 % (0-3); HEMATOCRIT 28.8 % (39.0-53.0); HEMOGLOBIN 9.8 g/dL (13.0-17.5); LYMPH # 0.9 x10^3/uL (1.0-4.8); LYMPH % 13 % (24-48); MEAN CORPUSCULAR HEMOGLOBIN 32 pg (25-35); MEAN CORPUSCULAR HGB CONC 34 g/dL (31-37); MEAN CORPUSCULAR VOLUME 94 fL (79-100); MONO # 0.9 x10^3/uL (0.0-1.1); MONO % 13 % (0-9); NEUT # 4.7 x10^3uL (1.8-7.7); NEUT % 68 % (31-73); PLATELET COUNT 226 x10^3/uL (140-400); RED BLOOD COUNT 3.06 x10^6/uL (4.30-5.70); RED CELL DISTRIBUTION WIDTH 14.3 % (11.5-14.5); WHITE BLOOD COUNT 6.9 x10^3/uL (4.0-11.0)
[2019-02-09 06:50] LABS: ALBUMIN 2.2 g/dL (3.4-5.0); ALBUMIN/GLOBULIN RATIO 0.5 (1.0-1.7); CALCIUM 8.7 mg/dL (8.5-10.1); CREATININE 0.5 mg/dL (0.7-1.3); GFR 169.6; POTASSIUM 3.2 mmol/L (3.5-5.1); TOTAL BILIRUBIN 0.6 mg/dL (0.2-1.0); TOTAL PROTEIN 6.3 g/dL (6.4-8.2)
--- NOTE | 2019-02-09 07:53 | RAD ---
Indication:ETT PLACEMENT TECHNIQUE:Portable AP chest X-ray COMPARISON:02/08/2019 FINDINGS: ET tube is seen approximately 3.2 cm from the level of pauline and is in appropriate position. NG tube is seen with its tip in the stomach. Heart is mildly enlarged in size. Silhouetting of the bilateral hemidiaphragms with consolidations in the lung bases and blunting of the bilateral costophrenic angles. Prominent bronchial markings are seen in the upper lobes. No pneumothorax. Right-sided PICC line is seen with its tip in the right brachiocephalic trunk IMPRESSION: 1. Bilateral lower lobe consolidations may be secondary to atelectasis or pneumonia. 2. Bilateral small pleural effusions. Electronically signed by: Lc Begum DO (02/09/2019 7:50 AM) [facility]
--- NOTE | 2019-02-09 08:01 | PDOC ---
Infectious Disease Note Subjective Subjective sedated, now intubated ROS ROS no n/v/d/sob/fever Vital Sign Vital Signs Vital Signs Date Time Temp Pulse Resp B/P (MAP) Pulse Ox O2 Delivery O2 Flow Rate FiO2 02/09/19 06:00 86 18 102/62 (75) 96 Ventilator 02/09/19 05:26 3.0 02/09/19 04:00 99.1 99.1 Physical Exam PHYSICAL EXAM GENERAL: reintubated HEENT: ETT and OGT in place. LUNGS: Diminished aeration. HEART: S1 and S2. ABDOMEN: Obese, soft. No grimace or guarding to palpation, with bowel sounds present. GENITOURINARY: Stratton in place. EXTREMITIES: Generalized trace edema. No cyanosis. SKIN: Warm, without rash. NEUROLOGIC: sedated on vent PIV Labs Lab Laboratory Tests Test 02/08/19 09:35 02/08/19 09:50 02/08/19 17:15 02/09/19 05:30 O2 Saturation 92 % (92-99) 98 % (92-99) Arterial Blood pH 7.34 (7.35-7.45) 7.37 (7.35-7.45) Arterial Blood pCO2 at Patient Temp 49 mmHg (35-46) 46 mmHg (35-46) Arterial Blood pO2 at Patient Temp 70 mmHg (65-108) 117 mmHg (65-108) Arterial Blood HCO3 26 mmol/L (21-28) 26 mmol/L (21-28) Arterial Blood Base Excess 0 mmol/L (-3-3) 1 mmol/L (-3-3) FiO2 30 100 White Blood Count 9.3 x10^3/uL (4.0-11.0) 6.9 x10^3/uL (4.0-11.0) Red Blood Count 3.25 x10^6/uL (4.30-5.70) 3.06 x10^6/uL (4.30-5.70) Hemoglobin 10.2 g/dL (13.0-17.5) 9.8 g/dL (13.0-17.5) Hematocrit 30.6 % (39.0-53.0) 28.8 % (39.0-53.0) Mean Corpuscular Volume 94 fL (79-100) 94 fL (79-100) Mean Corpuscular Hemoglobin 32 pg (25-35) 32 pg (25-35) Mean Corpuscular Hemoglobin Concent 33 g/dL (31-37) 34 g/dL (31-37) Red Cell Distribution Width 14.1 % (11.5-14.5) 14.3 % (11.5-14.5) Platelet Count 223 x10^3/uL (140-400) 226 x10^3/uL (140-400) Neutrophils (%) (Auto) 83 % (31-73) 68 % (31-73) Lymphocytes (%) (Auto) 5 % (24-48) 13 % (24-48) Monocytes (%) (Auto) 11 % (0-9) 13 % (0-9) Eosinophils (%) (Auto) 0 % (0-3) 6 % (0-3) Basophils (%) (Auto) 0 % (0-3) 1 % (0-3) Neutrophils # (Auto) 7.8 x10^3uL (1.8-7.7) 4.7 x10^3uL (1.8-7.7) Lymphocytes # (Auto) 0.4 x10^3/uL (1.0-4.8) 0.9 x10^3/uL (1.0-4.8) Monocytes # (Auto) 1.1 x10^3/uL (0.0-1.1) 0.9 x10^3/uL (0.0-1.1) Eosinophils # (Auto) 0.0 x10^3/uL (0.0-0.7) 0.4 x10^3/uL (0.0-0.7) Basophils # (Auto) 0.0 x10^3/uL (0.0-0.2) 0.0 x10^3/uL (0.0-0.2) Test 02/09/19 06:00 Sodium Level 145 mmol/L (136-145) Potassium Level 3.2 mmol/L (3.5-5.1) Chloride Level 108 mmol/L (98-107) Carbon Dioxide Level 29 mmol/L (21-32) Anion Gap 8 (6-14) Blood Urea Nitrogen 13 mg/dL (8-26) Creatinine 0.5 mg/dL (0.7-1.3) Estimated GFR (Cockcroft-Gault) 169.6 BUN/Creatinine Ratio 26 (6-20) Glucose Level 114 mg/dL (70-99) Calcium Level 8.7 mg/dL (8.5-10.1) Total Bilirubin 0.6 mg/dL (0.2-1.0) Aspartate Amino Transf (AST/SGOT) 90 U/L (15-37) Alanine Aminotransferase (ALT/SGPT) 636 U/L (16-63) Alkaline Phosphatase 92 U/L (46-116) Total Protein 6.3 g/dL (6.4-8.2) Albumin 2.2 g/dL (3.4-5.0) Albumin/Globulin Ratio 0.5 (1.0-1.7) Micro Microbiology 02/04/19 Blood Culture - Preliminary, Resulted NO GROWTH AFTER 2 DAYS Objective Assessment 1. Sepsis ??, likely had dehydration and too much pain meds 2. Fever. 3. Suspect aspiration. 4. Post-surgical spine infection with epidural abscess, status post incision and drainage on 12/30/2018, with growth of Enterococcus, ampicillin sensitive. He was undergoing a treatment with ampicillin prior to this admission. His original back surgery was on 12/09/2018. Recent sed rate from 01/31/2019 was 25. 5. Acute respiratory failure. 6. Acute encephalopathy. 7. Non-ST elevation myocardial infarction. 8. Acute kidney injury. 9. Shock liver. 10. Myoclonic movements, on Keppra. 11. Hypertension. 12. Atrial fibrillation. 13. Obstructive sleep apnea. 14. Morbid obesity. 15. Chronic obstructive pulmonary disease. Plan Plan of Care Continue Zosyn for suspected aspiration and continual tx for spinal infection f/u cultures Monitor labs/VS/temp Supportive care MRI lumbar noted, this is expected finding do not believe recent spine infection is playing any role in current illness D/w nursing KOKO JONES MD Feb 09, 2019 08:01
[2019-02-09] MEDS: IPRATRPIUM/ALBUTEROL 0.5/2.5MG 3 ML NEBU. NEB SCH ×4 (08:04→20:02)
[2019-02-09] MEDS: BUDESONIDE 0.5 MG/2 ML NEBU. NEB SCH ×2 (08:05→20:00)
[2019-02-09] MEDS: ASPIRIN RECTAL 300 MG SUPP. PR SCH (08:06)
[2019-02-09] MEDS: NICOTINE 21MG PATCH. TD SCH (08:06)
[2019-02-09] MEDS: levETIRAcetam 500 MG in IV DEXTROSE 5% 100ML 100 ML IV SCH ×2 (08:06→20:24)
[2019-02-09 08:16] LABS: BASE EXCESS ABG 1 mmol/L (-3-3); HCO3 ABG 27 mmol/L (21-28); PCO2 ABG 45 mmHg (35-46); PO2 ABG 76 mmHg (65-108); SAT O2 ABG 94 % (92-99)
[2019-02-09 08:30] LABS: FIO2 ABG 50
--- NOTE | 2019-02-09 09:43 | PDOC ---
PROGRESS NOTES Assessment Problems Medical Problems: (1) Altered mental status Status: Acute (2) Elevated LFTs Status: Acute (3) Hyperkalemia Status: Acute Metabolic encephalopathy, negative brain MRI Seizures, has a history of seizure related to hypoxia in the past Lumbar spine abscess, MRI findings are to be expected, normal evolution Medical problems: obstructive sleep apnea, atrial fibrillation, chronic obstructive pulmonary disease, congestive heart failure Plan As per pulmonary, medicine I discussed with Dr. Herring Subjective none Objective Vital Signs Date Time Temp Pulse Resp B/P (MAP) Pulse Ox O2 Delivery O2 Flow Rate FiO2 02/09/19 09:23 96 Ventilator 02/09/19 06:00 86 18 102/62 (75) 02/09/19 05:26 3.0 02/09/19 04:00 99.1 99.1 Intake and Output 02/09/19 06:59 Intake Total 2322 ml Output Total 3350 ml Balance -1028 ml IV Total 1938 ml Tube Feeding 284 ml Other 100 ml Output Urine Total 3350 ml PHYSICAL EXAM Sedated, not responsive to verbal stimuli, on vent PERRL. EOMI. CN: no focal findings. Muscle tone: normal. Muscle strength: no movement to light pain DTR: 1+ Plantar reflex: silent Gait: not examined in bed. Sensory exam: not cooperative. Cerebellar: not cooperative Review of Relevant I have reviewed the following items valerie (where applicable) has been applied. Labs Laboratory Tests Test 02/08/19 09:35 02/08/19 09:50 02/08/19 17:15 02/09/19 05:30 O2 Saturation 92 % (92-99) 98 % (92-99) Arterial Blood pH 7.34 (7.35-7.45) 7.37 (7.35-7.45) Arterial Blood pCO2 at Patient Temp 49 mmHg (35-46) 46 mmHg (35-46) Arterial Blood pO2 at Patient Temp 70 mmHg (65-108) 117 mmHg (65-108) Arterial Blood HCO3 26 mmol/L (21-28) 26 mmol/L (21-28) Arterial Blood Base Excess 0 mmol/L (-3-3) 1 mmol/L (-3-3) FiO2 30 100 White Blood Count 9.3 x10^3/uL (4.0-11.0) 6.9 x10^3/uL (4.0-11.0) Red Blood Count 3.25 x10^6/uL (4.30-5.70) 3.06 x10^6/uL (4.30-5.70) Hemoglobin 10.2 g/dL (13.0-17.5) 9.8 g/dL (13.0-17.5) Hematocrit 30.6 % (39.0-53.0) 28.8 % (39.0-53.0) Mean Corpuscular Volume 94 fL (79-100) 94 fL (79-100) Mean Corpuscular Hemoglobin 32 pg (25-35) 32 pg (25-35) Mean Corpuscular Hemoglobin Concent 33 g/dL (31-37) 34 g/dL (31-37) Red Cell Distribution Width 14.1 % (11.5-14.5) 14.3 % (11.5-14.5) Platelet Count 223 x10^3/uL (140-400) 226 x10^3/uL (140-400) Neutrophils (%) (Auto) 83 % (31-73) 68 % (31-73) Lymphocytes (%) (Auto) 5 % (24-48) 13 % (24-48) Monocytes (%) (Auto) 11 % (0-9) 13 % (0-9) Eosinophils (%) (Auto) 0 % (0-3) 6 % (0-3) Basophils (%) (Auto) 0 % (0-3) 1 % (0-3) Neutrophils # (Auto) 7.8 x10^3uL (1.8-7.7) 4.7 x10^3uL (1.8-7.7) Lymphocytes # (Auto) 0.4 x10^3/uL (1.0-4.8) 0.9 x10^3/uL (1.0-4.8) Monocytes # (Auto) 1.1 x10^3/uL (0.0-1.1) 0.9 x10^3/uL (0.0-1.1) Eosinophils # (Auto) 0.0 x10^3/uL (0.0-0.7) 0.4 x10^3/uL (0.0-0.7) Basophils # (Auto) 0.0 x10^3/uL (0.0-0.2) 0.0 x10^3/uL (0.0-0.2) Test 02/09/19 06:00 02/09/19 08:00 Sodium Level 145 mmol/L (136-145) Potassium Level 3.2 mmol/L (3.5-5.1) Chloride Level 108 mmol/L (98-107) Carbon Dioxide Level 29 mmol/L (21-32) Anion Gap 8 (6-14) Blood Urea Nitrogen 13 mg/dL (8-26) Creatinine 0.5 mg/dL (0.7-1.3) Estimated GFR (Cockcroft-Gault) 169.6 BUN/Creatinine Ratio 26 (6-20) Glucose Level 114 mg/dL (70-99) Calcium Level 8.7 mg/dL (8.5-10.1) Total Bilirubin 0.6 mg/dL (0.2-1.0) Aspartate Amino Transf (AST/SGOT) 90 U/L (15-37) Alanine Aminotransferase (ALT/SGPT) 636 U/L (16-63) Alkaline Phosphatase 92 U/L (46-116) Total Protein 6.3 g/dL (6.4-8.2) Albumin 2.2 g/dL (3.4-5.0) Albumin/Globulin Ratio 0.5 (1.0-1.7) O2 Saturation 94 % (92-99) Arterial Blood pH 7.39 (7.35-7.45) Arterial Blood pCO2 at Patient Temp 45 mmHg (35-46) Arterial Blood pO2 at Patient Temp 76 mmHg (65-108) Arterial Blood HCO3 27 mmol/L (21-28) Arterial Blood Base Excess 1 mmol/L (-3-3) FiO2 50 Laboratory Tests Test 02/08/19 09:50 02/08/19 17:15 02/09/19 05:30 02/09/19 06:00 White Blood Count 9.3 x10^3/uL (4.0-11.0) 6.9 x10^3/uL (4.0-11.0) Red Blood Count 3.25 x10^6/uL (4.30-5.70) 3.06 x10^6/uL (4.30-5.70) Hemoglobin 10.2 g/dL (13.0-17.5) 9.8 g/dL (13.0-17.5) Hematocrit 30.6 % (39.0-53.0) 28.8 % (39.0-53.0) Mean Corpuscular Volume 94 fL (79-100) 94 fL (79-100) Mean Corpuscular Hemoglobin 32 pg (25-35) 32 pg (25-35) Mean Corpuscular Hemoglobin Concent 33 g/dL (31-37) 34 g/dL (31-37) Red Cell Distribution Width 14.1 % (11.5-14.5) 14.3 % (11.5-14.5) Platelet Count 223 x10^3/uL (140-400) 226 x10^3/uL (140-400) Neutrophils (%) (Auto) 83 % (31-73) 68 % (31-73) Lymphocytes (%) (Auto) 5 % (24-48) 13 % (24-48) Monocytes (%) (Auto) 11 % (0-9) 13 % (0-9) Eosinophils (%) (Auto) 0 % (0-3) 6 % (0-3) Basophils (%) (Auto) 0 % (0-3) 1 % (0-3) Neutrophils # (Auto) 7.8 x10^3uL (1.8-7.7) 4.7 x10^3uL (1.8-7.7) Lymphocytes # (Auto) 0.4 x10^3/uL (1.0-4.8) 0.9 x10^3/uL (1.0-4.8) Monocytes # (Auto) 1.1 x10^3/uL (0.0-1.1) 0.9 x10^3/uL (0.0-1.1) Eosinophils # (Auto) 0.0 x10^3/uL (0.0-0.7) 0.4 x10^3/uL (0.0-0.7) Basophils # (Auto) 0.0 x10^3/uL (0.0-0.2) 0.0 x10^3/uL (0.0-0.2) O2 Saturation 98 % (92-99) Arterial Blood pH 7.37 (7.35-7.45) Arterial Blood pCO2 at Patient Temp 46 mmHg (35-46) Arterial Blood pO2 at Patient Temp 117 mmHg (65-108) Arterial Blood HCO3 26 mmol/L (21-28) Arterial Blood Base Excess 1 mmol/L (-3-3) FiO2 100 Sodium Level 145 mmol/L (136-145) Potassium Level 3.2 mmol/L (3.5-5.1) Chloride Level 108 mmol/L (98-107) Carbon Dioxide Level 29 mmol/L (21-32) Anion Gap 8 (6-14) Blood Urea Nitrogen 13 mg/dL (8-26) Creatinine 0.5 mg/dL (0.7-1.3) Estimated GFR (Cockcroft-Gault) 169.6 BUN/Creatinine Ratio 26 (6-20) Glucose Level 114 mg/dL (70-99) Calcium Level 8.7 mg/dL (8.5-10.1) Total Bilirubin 0.6 mg/dL (0.2-1.0) Aspartate Amino Transf (AST/SGOT) 90 U/L (15-37) Alanine Aminotransferase (ALT/SGPT) 636 U/L (16-63) Alkaline Phosphatase 92 U/L (46-116) Total Protein 6.3 g/dL (6.4-8.2) Albumin 2.2 g/dL (3.4-5.0) Albumin/Globulin Ratio 0.5 (1.0-1.7) Test 02/09/19 08:00 O2 Saturation 94 % (92-99) Arterial Blood pH 7.39 (7.35-7.45) Arterial Blood pCO2 at Patient Temp 45 mmHg (35-46) Arterial Blood pO2 at Patient Temp 76 mmHg (65-108) Arterial Blood HCO3 27 mmol/L (21-28) Arterial Blood Base Excess 1 mmol/L (-3-3) FiO2 50 Microbiology 02/04/19 Blood Culture - Preliminary, Resulted NO GROWTH AFTER 4 DAYS 02/05/19 - Final, Resulted 02/05/19 - Final, Resulted 02/05/19 - Final, Resulted 02/05/19 Gram Stain Evaluation - Final, Resulted 02/05/19 Sputum Culture, Resulted Pending Medications Current Medications Sodium Chloride 1,000 ml @ 1,000 mls/hr 1X ONCE IV Last administered on at 15:03; Start 02/04/19 at 15:15; Stop 02/04/19 at 16:14; Status DC Midazolam HCl (Versed) 2 mg 1X ONCE IV Last administered on 02/04/19at 15:05; Start 02/04/19 at 15:15; Stop 02/04/19 at 15:16; Status DC Piperacillin Sod/ Tazobactam Sod (Zosyn Per Pharmacy) 1 each PRN DAILY PRN MC SEE COMMENTS; Start 02/04/19 at 15:15 Fentanyl Citrate (Fentanyl 2ml Vial) 50 mcg 1X ONCE IV ; Start 02/04/19 at 15: 15; Stop 02/04/19 at 15:16; Status DC Piperacillin Sod/ Tazobactam Sod 4.5 gm/Sodium Chloride 100 ml @ 200 mls/hr 1X ONCE IV Last administered on 02/04/19at 15:33; Start 02/04/19 at 16:00; Stop 02/04/19 at 16:29; Status DC Etomidate (Amidate) 20 mg STK-MED ONCE IV ; Start 02/04/19 at 15:22; Stop at 15:23; Status DC Naloxone HCl (Narcan) 2 mg STK-MED ONCE .ROUTE ; Start 02/04/19 at 15:22; Stop 02/04/19 at 15:23; Status DC Rocuronium [place] (Zemuron) 50 mg STK-MED ONCE .ROUTE ; Start 02/04/19 at 15:23 ; Stop 02/04/19 at 15:24; Status DC Propofol (Diprivan) 200 mg 1X ONCE IV Last administered on 02/04/19at 16:10; Start 02/04/19 at 15:45; Stop 02/04/19 at 15:46; Status DC Sodium Chloride 1,000 ml @ 1,000 mls/hr 1X ONCE IV Last administered on at 16:05; Start 02/04/19 at 16:00; Stop 02/04/19 at 16:59; Status DC Aspirin (Aspirin) 300 mg 1X STAT [place] Last administered on 02/04/19at 17:11; Start 02/04/19 at 15:52; Stop 02/04/19 at 15:55; Status DC Sodium Bicarbonate (Sodium Bicarb Adult 8.4% Syr) 50 meq 1X ONCE IV Last administered on 02/04/19at 17:11; Start 02/04/19 at 16:00; Stop 02/04/19 at 16:01 ; Status DC Levetiracetam 1000 mg/Dextrose 110 ml @ 440 mls/hr 1X ONCE IV Last administered on 02/04/19at 16:54; Start 02/04/19 at 16:00; Stop 02/04/19 at 16:14 ; Status DC Calcium Gluconate (Calcium Gluconate) 1,000 mg 1X ONCE IVP Last administered on 02/04/19at 17:01; Start 02/04/19 at 16:00; Stop 02/04/19 at 16:01; Status DC Propofol 50 ml @ As Directed STK-MED ONCE IV ; Start 02/04/19 at 16:05; Stop at 16:06; Status DC Sodium Chloride 1,000 ml @ 125 mls/hr Q8H IV Last administered on 02/05/19at 07 :12; Start 02/04/19 at 16:09; Stop 02/05/19 at 15:19; Status DC Piperacillin Sod/ Tazobactam Sod 3.375 gm/Sodium Chloride 50 ml @ 100 mls/hr Q6HRS IV Last administered on 02/09/19at 05:41; Start 02/05/19 at 00:00 Etomidate (Amidate) 20 mg 1X ONCE IV Last administered on 02/04/19at 15:00; Start 02/04/19 at 16:45; Stop 02/04/19 at 16:46; Status DC Rocuronium [place] (Zemuron) 100 mg 1X ONCE IV Last administered on 02/04/19at 15:00; Start 02/04/19 at 16:45; Stop 02/04/19 at 16:46; Status DC Naloxone HCl (Narcan) 2 mg 1X ONCE IV Last administered on 02/04/19at 14:57; Start 02/04/19 at 16:45; Stop 02/04/19 at 16:46; Status DC Norepinephrine Bitartrate 250 ml @ 1.875 mls/ hr CONT PRN IV SEE I/O RECORD; Start 02/04/19 at 17:30 Dopamine HCl/ Dextrose 250 ml @ As Directed STK-MED ONCE IV ; Start 02/04/19 at 17:25; Stop 02/04/19 at 17:26; Status DC Fentanyl Citrate (Fentanyl 2ml Vial) 50 mcg 1X ONCE IV ; Start 02/04/19 at 17: 45; Stop 02/04/19 at 17:46; Status DC Midazolam HCl (Versed) 2 mg 1X ONCE IV ; Start 02/04/19 at 17:45; Stop at 17:46; Status DC Propofol 100 ml @ As Directed STK-MED ONCE IV ; Start 02/04/19 at 18:45; Stop 02/04/19 at 18:46; Status DC Propofol 100 ml @ 1.905 mls/ hr CONT PRN IV SEE I/O RECORD Last administered on 02/09/19at 04:27; Start 02/04/19 at 18:45 Fentanyl Citrate 30 ml @ 0 mls/hr CONT PRN IV SEE PROTOCOL Last administered on 02/09/19at 04:56; Start 02/04/19 at 19:45 Midazolam HCl 100 ml @ 0 mls/hr CONT PRN IV SEE PROTOCOL Last administered on at 01:52; Start 02/04/19 at 19:45 Heparin Sodium/ Dextrose 500 ml @ 0 mls/hr CONT PRN IV SEE I/O RECORD Last administered on 02/06/19at 01:53; Start 02/04/19 at 22:45; Stop 02/06/19 at 12:32 ; Status DC Info (Anti-Coagulation Monitoring By Pharmacy) 1 each PRN DAILY PRN MC SEE COMMENTS Last administered on 02/06/19at 07:57; Start 02/04/19 at 22:45; Stop at 12:34; Status DC Heparin Sodium (Porcine) (Heparin Sodium) 3,250 unit PRN Q6HRS PRN IV FOR UFH LEVEL LESS THAN 0.2 Last administered on 02/05/19at 22:31; Start 02/05/19 at 01: 30; Stop 02/06/19 at 12:32; Status DC Albuterol/ Ipratropium (Duoneb) 3 ml RTQID NEB Last administered on 02/09/19at 08:04; Start 02/05/19 at 08:00 Budesonide (Pulmicort) 0.5 mg RTBID NEB Last administered on 02/09/19at 08:05; Start 02/05/19 at 08:00 Famotidine (Pepcid Vial) 20 mg QHS IVP Last administered on 02/08/19at 19:37; Start 02/05/19 at 21:00 Sodium Chloride 1,000 ml @ 125 mls/hr Q8HRS IV ; Start 02/05/19 at 15:30; Status UNV Levetiracetam 500 mg/Dextrose 105 ml @ 420 mls/hr Q12HR IV Last administered on 02/09/19 08:06; Start 02/05/19 at 16:30 Sodium Chloride 1,000 ml @ 125 mls/hr Q8H IV Last administered on 02/07/19at 00 :00; Start 02/05/19 at 16:00; Stop 02/07/19 at 08:31; Status DC Aspirin (Children'S Aspirin) 81 mg DAILYWBKFT PO ; Start 02/06/19 at 09:30; Stop 02/08/19 at 11:04; Status DC Potassium Chloride/Water 50 ml @ 50 mls/hr 1X ONCE IV Last administered on at 12:19; Start 02/06/19 at 12:00; Stop 02/06/19 at 12:59; Status DC Hydralazine HCl (Apresoline Inj) 10 mg PRN Q3HRS PRN IVP ELEVATED BP, SEE COMMENTS Last administered on 02/07/19at 12:16; Start 02/06/19 at 11:45 Fentanyl Citrate (Fentanyl 2ml Vial) 50 mcg PRN Q3HRS PRN IV PAIN Last administered on 02/08/19at 09:06; Start 02/06/19 at 11:45 Dexmedetomidine HCl 200 mcg/ Sodium Chloride 50 ml @ 0 mls/hr CONT PRN IV PER PROTOCOL Last administered on 02/09/19at 08:58; Start 02/06/19 at 13:30 Sodium Chloride 500 ml @ 500 mls/hr 1X PRN PRN IV SEE COMMENTS; Start at 13:30 Atropine Sulfate (ATROPINE 0.5mg SYRINGE) 0.5 mg PRN Q5MIN PRN IV SEE COMMENTS ; Start 02/06/19 at 13:30 Haloperidol Lactate (Haldol Inj) 2.5 mg 1X PRN PRN IVP AGITATION Last administered on 02/07/19at 07:04; Start 02/06/19 at 16:30; Stop 02/07/19 at 07:04 ; Status DC Haloperidol Lactate (Haldol Inj) 2.5 mg 1X PRN PRN IVP AGITATION; Start at 16:30; Status UNV Albuterol Sulfate (Ventolin Neb Soln) 2.5 mg 1X ONCE NEB Last administered on 02/07/19at 02:13; Start 02/07/19 at 02:15; Stop 02/07/19 at 02:16; Status DC Lorazepam (Ativan) 1 mg PRN Q1HR PRN IV ANXIETY / AGITATION Last administered on 02/08/19 12:55; Start 02/07/19 at 07:45 Amino Acids/ Glycerin/ Electrolytes 1,000 ml @ 80 mls/hr [id number] IV Last administered on 02/08/19 11:27; Start 02/07/19 at 08:30; Stop 02/08/19 at 17:18 ; Status DC Propofol (Diprivan) 1,000 mg STK-MED ONCE IV ; Start 02/04/19 at 19:00; Stop at 09:01; Status DC Nicotine (Nicoderm Cq 21mg) 1 patch DAILY TD Last administered on 02/09/19 08: 06; Start 02/07/19 at 11:45 Sodium Bicarbonate (Sodium Bicarb Adult 8.4% Syr) 50 meq 1X ONCE IV Last administered on 02/07/19at 12:16; Start 02/07/19 at 11:45; Stop 02/07/19 at 11:46 ; Status DC Furosemide (Lasix) 40 mg 1X ONCE IVP Last administered on 02/08/19at 09:08; Start 02/08/19 at 09:30; Stop 02/08/19 at 09:31; Status DC Aspirin (Aspirin) 150 mg DAILY [place] Last administered on 02/09/19 08:06; Start 02/08/19 at 11:30 Fentanyl Citrate 30 ml @ 0 mls/hr CONT PRN IV SEE PROTOCOL; Start 02/08/19 at 13:00; Status UNV Lorazepam (Ativan) 1 mg PRN Q1HR PRN IV SEE COMMENTS; Start 02/08/19 at 13:00 Lorazepam (Ativan) 2 mg PRN Q1HR PRN IV SEE COMMENTS; Start 02/08/19 at 13:00 Propofol 100 ml @ 0 mls/hr CONT PRN IV SEE PROTOCOL; Start 02/08/19 at 13:00; Status UNV Morphine Sulfate (Morphine Sulfate) 2 mg PRN Q1HR PRN IV SEE COMMENTS.; Start 02/08/19 at 13:00 Morphine Sulfate (Morphine Sulfate) 4 mg PRN Q1HR PRN IV SEE COMMENTS.; Start 02/08/19 at 13:00 Midazolam HCl 100 ml @ 0 mls/hr CONT PRN IV SEE PROTOCOL; Start 02/08/19 at 13: 00; Status UNV Vecuronium [place] (Norcuron Bolus) 6 mg PRN Q2HR PRN IV SEDATION; Start at 13:45 Gadobutrol (Gadavist) 6 mmol 1X ONCE IV Last administered on 02/08/19at 15:12; Start 02/08/19 at 15:00; Stop 02/08/19 at 15:01; Status DC Gadobutrol (Gadavist) 6 mmol 1X ONCE IV Last administered on 02/08/19at 15:12; Start 02/08/19 at 15:00; Stop 02/08/19 at 15:01; Status DC Metoprolol Tartrate (Lopressor Vial) 5 mg PRN Q6HRS PRN IVP HYPERTENSION, SEE COMMENTS; Start 02/08/19 at 17:00 Multi-Ingred Cream/Lotion/Oil/ Oint (Artificial Tears Eye Ointment) 1 heriberto PRN Q1HR PRN OU DRY EYE; Start 02/08/19 at 18:45 Active Scripts Active Unasyn 3 Gm Vial (Ampicillin Sodium/Sulbactam Na) 3 Gm Vial 2 Gm IV Q4HRS 45 Days Colace (Docusate Sodium) 100 Mg Capsule 100 Mg PO BID 30 Days Metoprolol Tartrate 25 Mg Tablet 25 Mg PO BID Reported Ambien (Zolpidem Tartrate) 10 Mg Tablet 10 Mg PO PRN QHS PRN Ibuprofen 600 Mg Tablet 600 Mg PO PRN Q6HRS PRN Dulcolax (Bisacodyl) 5 Mg Tablet.dr 10 Mg PO PRN DAILY PRN Mucinex Dm Er 600-30 Mg Tablet (Guaifenesin/Dextromethorphan) 1 Each Tab.er.12h 1 Tab PO BID FENTANYL 100mcg/hr (Fentanyl) 1 Each Patch.td72 1 Patch TD Q48H Gabapentin 600 Mg Tablet 600 Mg PO TID Oxycodone Hcl 5 Mg Capsule 30 Mg PO Q4HRS PRN Hydrochlorothiazide Capsule (Hydrochlorothiazide) 12.5 Mg Capsule 25 Mg PO DAILY Proair Hfa Inhaler (Albuterol Sulfate) 8.5 Gm Hfa.aer.ad 2 Puff INH PRN Q6HRS PRN Albuterol Sulfate Neb Soln (Albuterol Sulfate) 2.5 Mg/3 Ml Vial.neb 2.5 Mg NEB PRN Q4-6HRS PRN Ipratropium [place] 0.2 Mg/1 Ml Solution 0.2 Mg IH PRN Q4-6HRS PRN Zoloft (Sertraline Hcl) 100 Mg Tablet 1 Tab PO DAILY Robaxin (Methocarbamol) 500 Mg Tablet 750 Mg PO Q8HRS PRN Azelastine Hcl 6 Ml Drops 1 Drop EACHEYE PRN DAILY PRN Lisinopril 10 Mg Tablet 10 Mg PO DAILY Lasix (Furosemide) 20 Mg Tablet 20 Mg PO DAILY Tamsulosin Hcl 0.4 Mg Cap.er.24h 0.4 Mg PO DAILY Montelukast Sodium Tablet (Montelukast Sodium) 10 Mg Tablet 10 Mg PO HS Omeprazole 20 Mg Capsule.dr 20 Mg PO DAILY Topiramate 50 Mg Tablet 1 Tab PO BID Daliresp (Roflumilast) 500 Mcg Tablet 500 Mcg PO DAILY Vitals/I & O Vital Sign - Last 24 Hours 02/08/19 02/08/19 02/08/19 02/08/19 10:00 11:00 12:00 12:00 Temp 98.3 98.3 Pulse 85 92 97 Resp 35 40 39 B/P (MAP) 132/82 (99) 149/95 (113) 144/102 (116) Pulse Ox 98 100 100 O2 Delivery BiPAP/CPAP BiPAP/CPAP BiPAP/CPAP Bi-pap 02/08/19 02/08/19 02/08/19 02/08/19 13:00 13:20 14:00 15:00 Pulse 90 93 92 Resp 40 28 18 B/P (MAP) 151/94 (113) 112/80 (91) 138/84 (102) Pulse Ox 100 100 95 96 O2 Delivery BiPAP/CPAP Ventilator Ventilator Ventilator 3/19/19 3/19/19 3/19/19 3/19/19 15:35 16:00 16:00 17:00 Temp 99.1 99.1 Pulse 84 97 Resp 19 18 B/P (MAP) 137/89 (105) 140/82 (101) Pulse Ox 100 96 97 O2 Delivery Ventilator Ventilator Mechanical Ventilator Ventilator 02/08/19 02/08/19 02/08/19 02/08/19 17:15 18:00 19:00 19:18 Pulse 97 96 Resp 20 18 18 B/P (MAP) 138/68 (91) 144/86 (105) Pulse Ox 100 97 96 96 O2 Delivery Ventilator Ventilator Ventilator Ventilator 02/08/19 02/08/19 02/08/19 02/08/19 19:51 20:00 20:00 21:00 Temp 99.2 99.2 Pulse 87 88 Resp 18 18 B/P (MAP) 126/86 (99) 135/83 (100) Pulse Ox 98 96 96 O2 Delivery Ventilator Mechanical Ventilator Ventilator Ventilator 02/08/19 02/08/19 02/08/19 02/08/19 21:40 22:00 23:00 23:59 Pulse 89 83 Resp 18 18 B/P (MAP) 114/78 (90) 112/79 (90) Pulse Ox 98 97 98 O2 Delivery Ventilator Ventilator Ventilator Mechanical Ventilator 02/08/19 02/09/19 02/09/19 02/09/19 23:59 00:05 01:00 02:00 Temp 99.4 99.4 Pulse 85 80 81 Resp 18 18 18 B/P (MAP) 104/75 (85) 107/70 (82) 96/65 (75) Pulse Ox 98 98 97 97 O2 Delivery Ventilator Ventilator Ventilator Ventilator 02/09/19 02/09/19 02/09/19 02/09/19 03:00 03:15 04:00 04:00 Temp 99.1 99.1 Pulse 73 87 Resp 18 18 B/P (MAP) 103/70 (81) 98/71 (80) Pulse Ox 97 95 97 O2 Delivery Ventilator Ventilator Ventilator Mechanical Ventilator 02/09/19 02/09/19 02/09/19 02/09/19 04:56 05:00 05:15 05:26 Pulse 73 Resp 18 18 18 B/P (MAP) 95/64 (74) Pulse Ox 97 94 98 98 O2 Delivery Ventilator Ventilator Ventilator Ventilator O2 Flow Rate 3.0 02/09/19 02/09/19 02/09/19 06:00 08:05 09:23 Pulse 86 Resp 18 B/P (MAP) 102/62 (75) Pulse Ox 96 96 96 O2 Delivery Ventilator Ventilator Ventilator Intake and Output 02/08/19 02/08/19 02/09/19 14:59 22:59 06:59 Intake Total 205 ml 1141 ml 976 ml Output Total 2535 ml 425 ml 390 ml Balance -2330 ml 716 ml 586 ml Images MRI of the lumbar spine without and with contrast 01/11/2019 CLINICAL HISTORY: Low back pain with severe bilateral leg weakness. History of lumbar spine surgery. Epidural abscess. TECHNIQUE: Unenhanced T1-weighted and T2-weighted sagittal and axial and inversion recovery sagittal images of the lumbar spine were obtained. After the intravenous administration of 12 cc of Gadavist, enhanced T1-weighted sagittal and axial images the lumbar spine were obtained. FINDINGS: Comparison study is dated 12/29/2018. Mild S-shaped curvature of the thoracolumbar spine is seen. Degenerative signal changes are seen involving all of the disks of the lumbar spine. Degenerative signal changes are seen within the marrow surrounding these discs. A subacute compression fracture of the superior endplate of the T12 vertebral body is again seen. No retropulsion of bone fragments into the central spinal canal is noted. The conus medullaris is normal morphology, position, and signal characteristics. Increased signal intensity is seen on the T2-weighted images involving the L4-5 disc. Increased signal intensity is seen within the marrow surrounding this disc on the T2-weighted and inversion recovery images. This demonstrates decreased signal intensity on the T1-weighted images and varying degrees of enhancement. These findings have increased since the previous examination. They are concerning for discitis/osteomyelitis. Clinical correlation is recommended. The patient is post left hemilaminectomy at L4-5. The fluid collections within the laminectomy site seen on the previous examination have resolved. Increased soft tissue intensity is seen is seen within the anterior epidural space extending to the left of midline into the left neural foramen at this level which enhances with contrast. This could represent epidural scarring versus epidural phlegmon. The changes of degenerative disc disease are seen throughout the lumbar spine. These consist of mild to moderate generalized disc bulges. Degenerative changes involving the facet joints and mild to moderate ligamentum flavum hypertrophy along with prominence of posterior epidural fat. These findings result in mild central spinal canal stenosis at L2-3 and mild to moderate central spinal canal stenosis at L3-4 mild right neural foraminal stenosis is seen at L3-4. Moderate left neural foraminal stenosis is seen at L4-5. IMPRESSION: Findings are seen concerning for discitis/osteomyelitis at L4-5 as outlined above. Clinical correlation is recommended. MRI of the brain without contrast 02/08/2019 Clinical History: Altered mental status. Technique: Unenhanced T1-weighted sagittal and axial, T2-weighted axial and coronal and FLAIR, gradient echo and diffusion-weighted axial images of the brain were obtained. Findings: No previous imaging studies are available for comparison. There is generalized parenchymal atrophy. Patchy and a few small scattered areas of increased signal intensity are seen within the periventricular and subcortical white matter of both cerebral hemispheres on the FLAIR and T2-weighted images consistent with areas of mild small vessel ischemic disease. No acute parenchymal abnormality is seen. No extra-axial fluid collection is seen. There is no MRI evidence of acute ischemia/infarction. Mild to moderate mucosal thickening is seen scattered throughout the paranasal sinuses. There are small bilateral mastoid effusions. Normal flow voids are seen within the major vascular structures surrounding the brain parenchyma. Impression: No acute parenchymal abnormality is seen. CISCO DE SOUZA MD Feb 09, 2019 09:43
[2019-02-09] MEDS ORDERED: LIDOCAINE 1% Multi-Dose 20 ML VIAL. ONE (10:52)
[2019-02-09] MEDS ORDERED: LIDOCAINE 2% VISCOUS 100 ML BOTTLE. ONE (10:52)
[2019-02-09] MEDS ORDERED: LIDOCAINE 1% Multi-Dose 20 ML VIAL. INJ PRN (11:00)
[2019-02-09] MEDS ORDERED: LIDOCAINE 2% VISCOUS 100 ML BOTTLE. MM PRN (11:00)
--- NOTE | 2019-02-09 11:35 | OP ---
DATE OF SURGERY: INDICATION: Persistent infiltrates. DESCRIPTION OF PROCEDURE: Informed consent was obtained from the patient's family, they agreed to proceed with the procedure. The patient was already intubated. Bronch was introduced through the endotracheal tube. The distal trachea was visualized. The endotracheal tube was right at the level of pauline, which was adjusted. The right lung was first examined. There were mucoid secretions seen in the right middle and right lower lobe. No purulent secretions seen. No endobronchial lesion seen. Mucosa appeared normal. Bronchoalveolar lavage performed from right middle and right lower lobe. There was minimal lavage obtained. Bronch was introduced into the left lung. Again, seen were some mucoid secretions in the left lingula and left lower lobe and bronchoalveolar lavage performed from the left lower lobe. No endobronchial lesions seen. No mucosal abnormality seen. IMPRESSION: 1. Mucoid secretions seen in both the lungs. 2. No mucosal erythema seen and no purulent secretions seen and no evidence of pneumonia. 3. Bronchoalveolar lavage performed from the right middle lobe and right lower lobe and the left lower lobe and follow the culture results. FOREIGN GOODE MD DR: LANDON/philip JOB#: [id number] / [id number] NATHALIE
--- NOTE | 2019-02-09 11:48 | PDOC ---
PULMONARY PROGRESS NOTES Subjective extubated 02/06 was very restless, on PRN ativan/ fentanyl BIPAP/ re-intubated electively for MRI and persistent encephalopathy Vitals Vital Signs Date Time Temp Pulse Resp B/P (MAP) Pulse Ox O2 Delivery O2 Flow Rate FiO2 02/09/19 09:23 96 Ventilator 02/09/19 06:00 86 18 102/62 (75) 02/09/19 05:26 3.0 02/09/19 04:00 99.1 99.1 Comments r Lungs: Other (decrease bases) Cardiovascular: Other (irreg irreg) Abdomen: Soft, Non-tender Extremities: Other (trace edema) Skin: Warm Labs Laboratory Tests Test 02/08/19 09:35 02/08/19 09:50 02/08/19 17:15 02/09/19 05:30 O2 Saturation 92 % (92-99) 98 % (92-99) Arterial Blood pH 7.34 (7.35-7.45) 7.37 (7.35-7.45) Arterial Blood pCO2 at Patient Temp 49 mmHg (35-46) 46 mmHg (35-46) Arterial Blood pO2 at Patient Temp 70 mmHg (65-108) 117 mmHg (65-108) Arterial Blood HCO3 26 mmol/L (21-28) 26 mmol/L (21-28) Arterial Blood Base Excess 0 mmol/L (-3-3) 1 mmol/L (-3-3) FiO2 30 100 White Blood Count 9.3 x10^3/uL (4.0-11.0) 6.9 x10^3/uL (4.0-11.0) Red Blood Count 3.25 x10^6/uL (4.30-5.70) 3.06 x10^6/uL (4.30-5.70) Hemoglobin 10.2 g/dL (13.0-17.5) 9.8 g/dL (13.0-17.5) Hematocrit 30.6 % (39.0-53.0) 28.8 % (39.0-53.0) Mean Corpuscular Volume 94 fL (79-100) 94 fL (79-100) Mean Corpuscular Hemoglobin 32 pg (25-35) 32 pg (25-35) Mean Corpuscular Hemoglobin Concent 33 g/dL (31-37) 34 g/dL (31-37) Red Cell Distribution Width 14.1 % (11.5-14.5) 14.3 % (11.5-14.5) Platelet Count 223 x10^3/uL (140-400) 226 x10^3/uL (140-400) Neutrophils (%) (Auto) 83 % (31-73) 68 % (31-73) Lymphocytes (%) (Auto) 5 % (24-48) 13 % (24-48) Monocytes (%) (Auto) 11 % (0-9) 13 % (0-9) Eosinophils (%) (Auto) 0 % (0-3) 6 % (0-3) Basophils (%) (Auto) 0 % (0-3) 1 % (0-3) Neutrophils # (Auto) 7.8 x10^3uL (1.8-7.7) 4.7 x10^3uL (1.8-7.7) Lymphocytes # (Auto) 0.4 x10^3/uL (1.0-4.8) 0.9 x10^3/uL (1.0-4.8) Monocytes # (Auto) 1.1 x10^3/uL (0.0-1.1) 0.9 x10^3/uL (0.0-1.1) Eosinophils # (Auto) 0.0 x10^3/uL (0.0-0.7) 0.4 x10^3/uL (0.0-0.7) Basophils # (Auto) 0.0 x10^3/uL (0.0-0.2) 0.0 x10^3/uL (0.0-0.2) Test 02/09/19 06:00 02/09/19 08:00 Sodium Level 145 mmol/L (136-145) Potassium Level 3.2 mmol/L (3.5-5.1) Chloride Level 108 mmol/L (98-107) Carbon Dioxide Level 29 mmol/L (21-32) Anion Gap 8 (6-14) Blood Urea Nitrogen 13 mg/dL (8-26) Creatinine 0.5 mg/dL (0.7-1.3) Estimated GFR (Cockcroft-Gault) 169.6 BUN/Creatinine Ratio 26 (6-20) Glucose Level 114 mg/dL (70-99) Calcium Level 8.7 mg/dL (8.5-10.1) Total Bilirubin 0.6 mg/dL (0.2-1.0) Aspartate Amino Transf (AST/SGOT) 90 U/L (15-37) Alanine Aminotransferase (ALT/SGPT) 636 U/L (16-63) Alkaline Phosphatase 92 U/L (46-116) Total Protein 6.3 g/dL (6.4-8.2) Albumin 2.2 g/dL (3.4-5.0) Albumin/Globulin Ratio 0.5 (1.0-1.7) O2 Saturation 94 % (92-99) Arterial Blood pH 7.39 (7.35-7.45) Arterial Blood pCO2 at Patient Temp 45 mmHg (35-46) Arterial Blood pO2 at Patient Temp 76 mmHg (65-108) Arterial Blood HCO3 27 mmol/L (21-28) Arterial Blood Base Excess 1 mmol/L (-3-3) FiO2 50 Laboratory Tests Test 02/08/19 17:15 02/09/19 05:30 02/09/19 06:00 02/09/19 08:00 O2 Saturation 98 % (92-99) 94 % (92-99) Arterial Blood pH 7.37 (7.35-7.45) 7.39 (7.35-7.45) Arterial Blood pCO2 at Patient Temp 46 mmHg (35-46) 45 mmHg (35-46) Arterial Blood pO2 at Patient Temp 117 mmHg (65-108) 76 mmHg (65-108) Arterial Blood HCO3 26 mmol/L (21-28) 27 mmol/L (21-28) Arterial Blood Base Excess 1 mmol/L (-3-3) 1 mmol/L (-3-3) FiO2 100 50 White Blood Count 6.9 x10^3/uL (4.0-11.0) Red Blood Count 3.06 x10^6/uL (4.30-5.70) Hemoglobin 9.8 g/dL (13.0-17.5) Hematocrit 28.8 % (39.0-53.0) Mean Corpuscular Volume 94 fL (79-100) Mean Corpuscular Hemoglobin 32 pg (25-35) Mean Corpuscular Hemoglobin Concent 34 g/dL (31-37) Red Cell Distribution Width 14.3 % (11.5-14.5) Platelet Count 226 x10^3/uL (140-400) Neutrophils (%) (Auto) 68 % (31-73) Lymphocytes (%) (Auto) 13 % (24-48) Monocytes (%) (Auto) 13 % (0-9) Eosinophils (%) (Auto) 6 % (0-3) Basophils (%) (Auto) 1 % (0-3) Neutrophils # (Auto) 4.7 x10^3uL (1.8-7.7) Lymphocytes # (Auto) 0.9 x10^3/uL (1.0-4.8) Monocytes # (Auto) 0.9 x10^3/uL (0.0-1.1) Eosinophils # (Auto) 0.4 x10^3/uL (0.0-0.7) Basophils # (Auto) 0.0 x10^3/uL (0.0-0.2) Sodium Level 145 mmol/L (136-145) Potassium Level 3.2 mmol/L (3.5-5.1) Chloride Level 108 mmol/L (98-107) Carbon Dioxide Level 29 mmol/L (21-32) Anion Gap 8 (6-14) Blood Urea Nitrogen 13 mg/dL (8-26) Creatinine 0.5 mg/dL (0.7-1.3) Estimated GFR (Cockcroft-Gault) 169.6 BUN/Creatinine Ratio 26 (6-20) Glucose Level 114 mg/dL (70-99) Calcium Level 8.7 mg/dL (8.5-10.1) Total Bilirubin 0.6 mg/dL (0.2-1.0) Aspartate Amino Transf (AST/SGOT) 90 U/L (15-37) Alanine Aminotransferase (ALT/SGPT) 636 U/L (16-63) Alkaline Phosphatase 92 U/L (46-116) Total Protein 6.3 g/dL (6.4-8.2) Albumin 2.2 g/dL (3.4-5.0) Albumin/Globulin Ratio 0.5 (1.0-1.7) Medications Active Scripts Medications Dose Route/Sig Max Daily Dose Days Date Category Unasyn 3 Gm Vial (Ampicillin Sodium/Sulbactam Na) 3 Gm Vial 2 Gm IV Q4HRS 45 01/05/19 Rx Oxycodone Hcl Immed.release (Oxycodone Hcl) 5 Mg Tablet 10 Mg PO PRN Q4HRS PRN 01/04/19 Rx Oxycontin (Oxycodone HCl) 15 Mg Tab.er.12h 15 Mg PO Q12HR 01/04/19 Rx Colace (Docusate Sodium) 100 Mg Capsule 100 Mg PO BID 30 12/09/18 Rx Hydrochlorothiazide Capsule (Hydrochlorothiazide) 12.5 Mg Capsule 25 Mg PO DAILY 11/29/18 Reported Proair Hfa Inhaler (Albuterol Sulfate) 8.5 Gm Hfa.aer.ad 2 Puff INH PRN Q6HRS PRN 11/29/18 Reported Albuterol Sulfate Neb Soln (Albuterol Sulfate) 2.5 Mg/3 Ml Vial.neb 2.5 Mg NEB PRN Q4-6HRS PRN 11/29/18 Reported Ipratropium [place] 0.2 Mg/1 Ml Solution 0.2 Mg IH PRN Q4-6HRS PRN 11/29/18 Reported Zoloft (Sertraline Hcl) 100 Mg Tablet 1 Tab PO DAILY 11/04/18 Reported Robaxin (Methocarbamol) 500 Mg Tablet 500 Mg PO QID PRN 11/04/18 Reported Azelastine Hcl 6 Ml Drops 1 Drop EACHEYE PRN DAILY PRN 11/04/18 Reported Lisinopril 10 Mg Tablet 10 Mg PO DAILY 08/12/17 Reported Lasix (Furosemide) 20 Mg Tablet 20 Mg PO DAILY 08/12/17 Reported Tamsulosin Hcl 0.4 Mg Cap.er.24h 0.4 Mg PO DAILY 08/12/17 Reported Montelukast Sodium Tablet (Montelukast Sodium) 10 Mg Tablet 10 Mg PO HS 08/12/17 Reported Metoprolol Tartrate 25 Mg Tablet 25 Mg PO BID 07/11/16 Rx Omeprazole 20 Mg Capsule.dr 20 Mg PO DAILY 07/09/16 Reported Topiramate 50 Mg Tablet 1 Tab PO BID 07/09/16 Reported Daliresp (Roflumilast) 500 Mcg Tablet 500 Mcg PO DAILY 07/09/16 Reported Comments reviewed cxr, 02/09 increase bilateral infiltrates/ RLL consolidation/ ET position reviewed Impression . 1. Acute respiratory failure, multifactorial in etiology. Re- Intubated 02/08 2. Abnormal chest x-ray.c/w RLL pneumonia, now superimposed CHF 3. Acute kidney injury. Electrolyte abnormality. improving 4. Elevated troponin, non-ST elevation myocardial infarction. 5. Atrial fibrillation with rapid ventricular response, now rate controlled. 6. Hyperkalemia. resolved 7. Status post back surgery, epidural abscess, incision and drainage, on antibiotic. no extension to brain 8. Chronic obstructive pulmonary disease. 9. Acute diastolic congestive heart failure. 10. sepsis, ? aspiration 11. Obstructive sleep apnea-hypopnea syndrome. 12. elevated LFTs improving/ shock liver 13. Encephalopathy ?Nicotine withdrawl/ ? ETOH withdrawl, /sepsis Plan . 1. AC mode /ABG reasonable 2. watch resp status closely 3. bronchodilator. 4. Bronch today 5. Pepcid for stress ulcer prophylaxis. 6. Monitor potassium and creatinine. 7. fu Sputum culture. 8. abx per id 9. Cardiology on case discussed with RN/ and cardiology FOREIGN GOODE MD Feb 09, 2019 11:48
--- NOTE | 2019-02-09 14:21 | PDOC ---
ICU PROGRESS NOTES Subjective He was reintubated earlier today due to restlessness so MRI could be done and as he was fatiguing also. Bronch done and just whitish secretions per discussion with Dr. Leos. MRI of brain without acute findings, MRI of L-spine suggests diskitis and osteomyelitis at L4-5. His pain had worsened prior to his acute hypoventilatory event but his sed rate was 25. He is back on tube feeding Objective Objective sedated, intubated lungs clear anteriorly, no JVD pvc monitor observed abd obese but soft, acive bowel sounds present feet warm and without edema Stratton in place with adequate output Vitals Vital Signs Date Time Temp Pulse Resp B/P (MAP) Pulse Ox O2 Delivery O2 Flow Rate FiO2 02/09/19 13:45 91 3.0 02/09/19 13:02 98.9 92 106/67 (80) 98.9 02/09/19 12:03 Mechanical Ventilator 02/09/19 11:00 18 Input & Output Intake and Output 02/09/19 07:00 Intake Total 2272 ml Output Total 3275 ml Balance -1003 ml IV Total 1888 ml Tube Feeding 284 ml Other 100 ml Output Urine Total 3275 ml Ventilator Settings O2 Flow Rate: 3.0 Oxygen Delivery Device: Ventilator O2 Humdified: HME Temperature (97-99 F): Yes FiO2: 50 SpO2: 91 DVT Prophylaxis DVT Prophylaxis yes, heparin Stress Ulcer Prophylaxis Stress Ulcer Prophylaxis yes Imaging Imaging TECHNIQUE:Portable AP chest X-ray COMPARISON:02/08/2019 FINDINGS: ET tube is seen approximately 3.2 cm from the level of pauline and is in appropriate position. NG tube is seen with its tip in the stomach. Heart is mildly enlarged in size. Silhouetting of the bilateral hemidiaphragms with consolidations in the lung bases and blunting of the bilateral costophrenic angles. Prominent bronchial markings are seen in the upper lobes. No pneumothorax. Right-sided PICC line is seen with its tip in the right brachiocephalic trunk IMPRESSION: 1. Bilateral lower lobe consolidations may be secondary to atelectasis or pneumonia. 2. Bilateral small pleural effusions. MRI L-spine: FINDINGS: Comparison study is dated 12/29/2018. Mild S-shaped curvature of the thoracolumbar spine is seen. Degenerative signal changes are seen involving all of the disks of the lumbar spine. Degenerative signal changes are seen within the marrow surrounding these discs. A subacute compression fracture of the superior endplate of the T12 vertebral body is again seen. No retropulsion of bone fragments into the central spinal canal is noted. The conus medullaris is normal morphology, position, and signal characteristics. Increased signal intensity is seen on the T2-weighted images involving the L4-5 disc. Increased signal intensity is seen within the marrow surrounding this disc on the T2-weighted and inversion recovery images. This demonstrates decreased signal intensity on the T1-weighted images and varying degrees of enhancement. These findings have increased since the previous examination. They are concerning for discitis/osteomyelitis. Clinical correlation is recommended. The patient is post left hemilaminectomy at L4-5. The fluid collections within the laminectomy site seen on the previous examination have resolved. Increased soft tissue intensity is seen is seen within the anterior epidural space extending to the left of midline into the left neural foramen at this level which enhances with contrast. This could represent epidural scarring versus epidural phlegmon. The changes of degenerative disc disease are seen throughout the lumbar spine. These consist of mild to moderate generalized disc bulges. Degenerative changes involving the facet joints and mild to moderate ligamentum flavum hypertrophy along with prominence of posterior epidural fat. These findings result in mild central spinal canal stenosis at L2-3 and mild to moderate central spinal canal stenosis at L3-4 mild right neural foraminal stenosis is seen at L3-4. Moderate left neural foraminal stenosis is seen at L4-5. IMPRESSION: Findings are seen concerning for discitis/osteomyelitis at L4-5 as outlined above. Clinical correlation is recommended. Medications Medications Current Medications Enoxaparin Sodium (Lovenox 40mg Syringe) 40 mg Q24H SQ ; Start 02/09/19 at 16:00 Gadobutrol (Gadavist) 6 mmol 1X ONCE IV Last administered on 02/08/19at 15:12; Start 02/08/19 at 15:00; Stop 02/08/19 at 15:01; Status DC Gadobutrol (Gadavist) 6 mmol 1X ONCE IV Last administered on 02/08/19at 15:12; Start 02/08/19 at 15:00; Stop 02/08/19 at 15:01; Status DC Lidocaine HCl (Lidocaine 1% 20ml Vial) 20 ml PRN 1X PRN INJ SEE COMMENTS Last administered on 02/09/19at 11:02; Start 02/09/19 at 11:00; Stop 02/10/19 at 10:59 Lidocaine HCl (Lidocaine 1% 20ml Vial) 20 ml STK-MED ONCE .ROUTE ; Start at 10:52; Stop 02/09/19 at 10:53; Status DC Lidocaine HCl (Lidocaine 2% Viscous) 100 ml PRN 1X PRN MM MOUTH PAIN Last administered on 02/09/19at 11:01; Start 02/09/19 at 11:00; Stop 02/10/19 at 10:59 Lidocaine HCl (Lidocaine 2% Viscous) 100 ml STK-MED ONCE .ROUTE ; Start at 10:52; Stop 02/09/19 at 10:53; Status DC Metoprolol Tartrate (Lopressor Vial) 5 mg PRN Q6HRS PRN IVP HYPERTENSION, SEE COMMENTS; Start 02/08/19 at 17:00 Multi-Ingred Cream/Lotion/Oil/ Oint (Artificial Tears Eye Ointment) 1 heriberto PRN Q1HR PRN OU DRY EYE; Start 02/08/19 at 18:45 Physical Exam Lungs: Other (decrease bases) Cardiovascular: Other (irreg irreg) Abdomen: Soft, Non-tender Extremities: Other (trace edema) Skin: Warm Impression . acute respiratory failure - presumed aspiration with pneumonia NSTEMI acute encephalopathy likely aspiration pneumonitis shock liver COPD recent spinal abscess s/p lumbar lami but sed rate had returned to normal [employer] and he was nearly finished with 45 day course of antibiotics, MRI suggests discitis/osteomyelitis at L4-5 acute flare of lumbar back pain last week without injury requiring an increase in pain meds for control obesity ADILENE hx of alcoholism constipation Plan . s/p code blue - bag and mask, mechanical ventilation x 48 hrs acute respiratory failure - presumed aspiration - off vent but on Bipap, rechk of ABG today shows pH improved NSTEMI - cardiology following acute encephalopathy - may need EEG, MRI brain ordered, fentanyl patch removed in ER, on sedatives, prn IV fentanyl likely aspiration pneumonitis - continue antibiotics shock liver - improving - monitor COPD - continue neb treatments recent spinal abscess s/p lumbar lami but sed rate had returned to normal [employer] and he was nearly finished with 45 day course of antibiotics, recheck sed rate, consult Dr. Boyd acute flare of lumbar back pain last week without injury requiring an increase in pain meds for control - MRI L-spine obesity ADILENE hx of alcoholism - I am unaware of him drinking alcohol while at [facility] and admission alcohol level was undetectable anemia - stable AL - he was taking unprescribed NSAIDS from home at [facility] for pain Afib/RVR - rate controlled constipation per [facility] imaging Roseann JAY MD Feb 09, 2019 14:21
[2019-02-09] MEDS: DIGOXIN IV 500 MCG/2 ML AMPUL. IV SCH (14:50)
[2019-02-09] MEDS ORDERED: POTASSIUM CHLORIDE 20 MEQ/15 ML ORAL LIQUID. PEG ONE (15:00)
--- NOTE | 2019-02-09 15:36 | RAD ---
Single view of the abdomen 02/09/2019 INDICATION: OG tube placement COMPARISON STUDY: Chest radiograph, earlier today Discussion: There is an enteric tube tip projecting over the expected region of the proximal stomach. Bowel gas pattern is grossly nonobstructive. No acute osseous changes are identified. Degenerative changes of the lumbar spine noted. IMPRESSION: Enteric tube with tip projecting over the proximal stomach. Electronically signed by: Lele Salazar MD (02/09/2019 3:33 PM) [id number]
[2019-02-09] MEDS ORDERED: MAGNESIUM SULFATE 1GM 100 ML IV ONE (15:45)
--- NOTE | 2019-02-09 16:12 | PDOC ---
JOAQUINA PEREZ [employer] 02/09/19 1612: CARDIO Progress Notes Date and Time Date of Service 02/09/2019 Time of Evaluation 1450 Subjective Subjective: Other (sedated) Vitals Vitals Vital Signs Date Time Temp Pulse Resp B/P (MAP) Pulse Ox O2 Delivery O2 Flow Rate FiO2 02/09/19 16:00 98.7 102 18 126/90 (102) 94 Ventilator 98.7 02/09/19 13:45 3.0 Weight Weight [ ] Input and Output Intake and Output Intake and Output 02/09/19 07:00 Intake Total 2272 ml Output Total 3275 ml Balance -1003 ml IV Total 1888 ml Tube Feeding 284 ml Other 100 ml Output Urine Total 3275 ml Laboratory Labs Laboratory Tests Test 02/08/19 17:15 02/09/19 05:30 02/09/19 06:00 02/09/19 08:00 O2 Saturation 98 % (92-99) 94 % (92-99) Arterial Blood pH 7.37 (7.35-7.45) 7.39 (7.35-7.45) Arterial Blood pCO2 at Patient Temp 46 mmHg (35-46) 45 mmHg (35-46) Arterial Blood pO2 at Patient Temp 117 mmHg (65-108) 76 mmHg (65-108) Arterial Blood HCO3 26 mmol/L (21-28) 27 mmol/L (21-28) Arterial Blood Base Excess 1 mmol/L (-3-3) 1 mmol/L (-3-3) FiO2 100 50 White Blood Count 6.9 x10^3/uL (4.0-11.0) Red Blood Count 3.06 x10^6/uL (4.30-5.70) Hemoglobin 9.8 g/dL (13.0-17.5) Hematocrit 28.8 % (39.0-53.0) Mean Corpuscular Volume 94 fL (79-100) Mean Corpuscular Hemoglobin 32 pg (25-35) Mean Corpuscular Hemoglobin Concent 34 g/dL (31-37) Red Cell Distribution Width 14.3 % (11.5-14.5) Platelet Count 226 x10^3/uL (140-400) Neutrophils (%) (Auto) 68 % (31-73) Lymphocytes (%) (Auto) 13 % (24-48) Monocytes (%) (Auto) 13 % (0-9) Eosinophils (%) (Auto) 6 % (0-3) Basophils (%) (Auto) 1 % (0-3) Neutrophils # (Auto) 4.7 x10^3uL (1.8-7.7) Lymphocytes # (Auto) 0.9 x10^3/uL (1.0-4.8) Monocytes # (Auto) 0.9 x10^3/uL (0.0-1.1) Eosinophils # (Auto) 0.4 x10^3/uL (0.0-0.7) Basophils # (Auto) 0.0 x10^3/uL (0.0-0.2) Sodium Level 145 mmol/L (136-145) Potassium Level 3.2 mmol/L (3.5-5.1) Chloride Level 108 mmol/L (98-107) Carbon Dioxide Level 29 mmol/L (21-32) Anion Gap 8 (6-14) Blood Urea Nitrogen 13 mg/dL (8-26) Creatinine 0.5 mg/dL (0.7-1.3) Estimated GFR (Cockcroft-Gault) 169.6 BUN/Creatinine Ratio 26 (6-20) Glucose Level 114 mg/dL (70-99) Calcium Level 8.7 mg/dL (8.5-10.1) Magnesium Level 1.7 mg/dL (1.8-2.4) Total Bilirubin 0.6 mg/dL (0.2-1.0) Aspartate Amino Transf (AST/SGOT) 90 U/L (15-37) Alanine Aminotransferase (ALT/SGPT) 636 U/L (16-63) Alkaline Phosphatase 92 U/L (46-116) Total Protein 6.3 g/dL (6.4-8.2) Albumin 2.2 g/dL (3.4-5.0) Albumin/Globulin Ratio 0.5 (1.0-1.7) Microbiology Micro Microbiology 02/04/19 Blood Culture - Final, Complete NO GROWTH AFTER 5 DAYS 02/09/19 - Final, Complete Physical Exam HEENT: Neck Supple W Full Motion Chest: Symmetric LUNGS: Other (diminished bases with mech vent) Heart: irregularly irregular (AFIB) Abdomen: Other (obese) Extremities: Other (trace to 1+ bilateral LE edema ) Neurology: other (sedated) Assessment Assessment 1. Acute hypoxic respiratory failure; reintubated last night 2. NSTEMI; peak 2.514. suspect demand mediated, multifactorial. Echo showed preserved LV systolic function with an EF of 65%. RV mild to moderately dilated. 3. 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 Leukocytosis, lactic acidosis, possible sepsis. ? aspiration 5. Permanent AFIB; rate controlled, burst of RVR 6. AL, hyperkalemia; improved 7. Transaminitis with shock liver; improving 8. Metabolic encephalopathy; requiring sedation due to agitation 9. Acute on Chronic diastolic CHF: better 10. Metabolic encephalopathy with hx of seizures Recommendations 1. Replace K and Mg. Unable to start on metoprolol due to marginal BP. Will start on IV digoxin for the meantime for rate control 2. Ongoing antibiotic therapy. Neurology/ID following. Lasix PRN 3. Eliquis on hold until no further plans for procedures in regards to [employer]. Meantime ASA for stroke prevention. 4. Will need ischemic evaluation when acute issue resolve, possibly as an outpatient TONIO KIM MD 02/09/19 1850: CARDIO Progress Notes Plan Plan Pt. seen and examined. AGree with above BUNGHOLE BORER note. Supportive care. Discussed with at bedside. JOAQUINA PEREZ APRN Feb 09, 2019 16:12 TONIO KIM MD Feb 09, 2019 18:50
[2019-02-09] MEDS: ENOXAPARIN 40 MG/0.4 ML SYRINGE. SQ SCH (16:14)
[2019-02-09] MEDS: MIDAZOLAM 100mg/100ml NS BAG 100 ML IV PRN ×2 (18:12→22:47)
[2019-02-09] MEDS: FAMOTIDINE 20 MG/2 ML VIAL IVP SCH (20:24)
[2019-02-09] MEDS ORDERED: ACETAMINOPHEN 650 MG/20.3 ML SOLUTION. PEG ONE (22:45)
[2019-02-09] MEDS: METOPROLOL TARTRATE 5 MG/5 ML VIAL. IVP PRN (23:13)
[2019-02-09] MEDS: MORPHINE SULFATE 4 MG/ML VIAL. IV PRN (23:20)
[2019-02-10] VITALS (23 sets, daily range): BP systolic 79–157; BP diastolic 52–105
[2019-02-10 05:11] LABS: BASO # 0.1 x10^3/uL (0.0-0.2); BASO % 1 % (0-3); EOS # 0.4 x10^3/uL (0.0-0.7); EOS % 4 % (0-3); HEMOGLOBIN 10.1 g/dL (13.0-17.5); LYMPH # 0.9 x10^3/uL (1.0-4.8); LYMPH % 10 % (24-48); MEAN CORPUSCULAR HEMOGLOBIN 31 pg (25-35); MEAN CORPUSCULAR HGB CONC 33 g/dL (31-37); MEAN CORPUSCULAR VOLUME 95 fL (79-100); MONO # 1.4 x10^3/uL (0.0-1.1); MONO % 14 % (0-9); NEUT # 6.8 x10^3uL (1.8-7.7); NEUT % 71 % (31-73); PLATELET COUNT 304 x10^3/uL (140-400); RED BLOOD COUNT 3.27 x10^6/uL (4.30-5.70); RED CELL DISTRIBUTION WIDTH 14.4 % (11.5-14.5); WHITE BLOOD COUNT 9.5 x10^3/uL (4.0-11.0)
[2019-02-10] MEDS: PIPERACILLIN/TAZOBACTAM 3.375 GM in IV NORMAL SALINE 50ML 50 ML IV SCH (05:12)
[2019-02-10 06:07] LABS: ALBUMIN 2.5 g/dL (3.4-5.0); ALBUMIN/GLOBULIN RATIO 0.7 (1.0-1.7); CALCIUM 8.7 mg/dL (8.5-10.1); CREATININE 0.6 mg/dL (0.7-1.3); GFR 137.4; POTASSIUM 3.8 mmol/L (3.5-5.1); TOTAL BILIRUBIN 0.6 mg/dL (0.2-1.0); TOTAL PROTEIN 5.9 g/dL (6.4-8.2)
[2019-02-10] MEDS: MORPHINE SULFATE 4 MG/ML VIAL. IV PRN ×2 (06:38→21:05)
--- NOTE | 2019-02-10 08:07 | PDOC ---
Infectious Disease Note Subjective Subjective sedated, intubated ROS ROS no n/v/d/ Vital Sign Vital Signs Vital Signs Date Time Temp Pulse Resp B/P (MAP) Pulse Ox O2 Delivery O2 Flow Rate FiO2 02/10/19 06:38 21 93 Ventilator 02/10/19 06:00 115 117/74 (88) 02/10/19 04:00 98.1 98.1 02/09/19 23:22 3.0 Physical Exam PHYSICAL EXAM GENERAL: reintubated HEENT: ETT and OGT in place. LUNGS: Diminished aeration. HEART: S1 and S2. ABDOMEN: Obese, soft. No grimace or guarding to palpation, with bowel sounds present. GENITOURINARY: Stratton in place. EXTREMITIES: Generalized trace edema. No cyanosis. SKIN: Warm, without rash. NEUROLOGIC: sedated on vent PIV Labs Lab Laboratory Tests Test 02/09/19 16:30 02/10/19 04:50 02/10/19 05:30 Erythrocyte Sedimentation Rate 76 (0-15) White Blood Count 9.5 x10^3/uL (4.0-11.0) Red Blood Count 3.27 x10^6/uL (4.30-5.70) Hemoglobin 10.1 g/dL (13.0-17.5) Hematocrit 31.0 % (39.0-53.0) Mean Corpuscular Volume 95 fL (79-100) Mean Corpuscular Hemoglobin 31 pg (25-35) Mean Corpuscular Hemoglobin Concent 33 g/dL (31-37) Red Cell Distribution Width 14.4 % (11.5-14.5) Platelet Count 304 x10^3/uL (140-400) Neutrophils (%) (Auto) 71 % (31-73) Lymphocytes (%) (Auto) 10 % (24-48) Monocytes (%) (Auto) 14 % (0-9) Eosinophils (%) (Auto) 4 % (0-3) Basophils (%) (Auto) 1 % (0-3) Neutrophils # (Auto) 6.8 x10^3uL (1.8-7.7) Lymphocytes # (Auto) 0.9 x10^3/uL (1.0-4.8) Monocytes # (Auto) 1.4 x10^3/uL (0.0-1.1) Eosinophils # (Auto) 0.4 x10^3/uL (0.0-0.7) Basophils # (Auto) 0.1 x10^3/uL (0.0-0.2) Sodium Level 147 mmol/L (136-145) Potassium Level 3.8 mmol/L (3.5-5.1) Chloride Level 108 mmol/L (98-107) Carbon Dioxide Level 30 mmol/L (21-32) Anion Gap 9 (6-14) Blood Urea Nitrogen 11 mg/dL (8-26) Creatinine 0.6 mg/dL (0.7-1.3) Estimated GFR (Cockcroft-Gault) 137.4 BUN/Creatinine Ratio 18 (6-20) Glucose Level 104 mg/dL (70-99) Calcium Level 8.7 mg/dL (8.5-10.1) Total Bilirubin 0.6 mg/dL (0.2-1.0) Aspartate Amino Transf (AST/SGOT) 52 U/L (15-37) Alanine Aminotransferase (ALT/SGPT) 475 U/L (16-63) Alkaline Phosphatase 105 U/L (46-116) Total Protein 5.9 g/dL (6.4-8.2) Albumin 2.5 g/dL (3.4-5.0) Albumin/Globulin Ratio 0.7 (1.0-1.7) Triglycerides Level 112 mg/dL (0-150) Micro Microbiology 02/04/19 Blood Culture - Preliminary, Resulted NO GROWTH AFTER 2 DAYS Objective Assessment 1. Sepsis ??, likely had dehydration and too much pain meds 2. Fever. 3. Suspect aspiration. 4. Post-surgical spine infection with epidural abscess, status post incision and drainage on 12/30/2018, with growth of Enterococcus, ampicillin sensitive. He was undergoing a treatment with ampicillin prior to this admission. His original back surgery was on 12/09/2018. Recent sed rate from 01/31/2019 was 25. 5. Acute respiratory failure. 6. Acute encephalopathy. 7. Non-ST elevation myocardial infarction. 8. Acute kidney injury. 9. Shock liver. 10. Myoclonic movements, on Keppra. 11. Hypertension. 12. Atrial fibrillation. 13. Obstructive sleep apnea. 14. Morbid obesity. 15. Chronic obstructive pulmonary disease. Plan Plan of Care Continue Zosyn for suspected aspiration and continual tx for spinal infection f/u cultures Monitor labs/VS/temp Supportive care MRI lumbar noted, this is expected finding do not believe recent spine infection is playing any role in current illness D/w nursing KOKO JONES MD Feb 10, 2019 08:07
[2019-02-10] MEDS: BUDESONIDE 0.5 MG/2 ML NEBU. NEB SCH ×2 (08:14→20:19)
[2019-02-10] MEDS: IPRATRPIUM/ALBUTEROL 0.5/2.5MG 3 ML NEBU. NEB SCH ×4 (08:14→20:19)
[2019-02-10 08:25] LABS: BASE EXCESS ABG 2 mmol/L (-3-3); HCO3 ABG 28 mmol/L (21-28); PCO2 ABG 50 mmHg (35-46); PO2 ABG 74 mmHg (65-108); SAT O2 ABG 93 % (92-99)
[2019-02-10] MEDS: ASPIRIN RECTAL 300 MG SUPP. PR SCH (09:00)
[2019-02-10] MEDS: levETIRAcetam 500 MG in IV DEXTROSE 5% 100ML 100 ML IV SCH ×2 (10:15→23:09)
[2019-02-10] MEDS: NICOTINE 21MG PATCH. TD SCH (10:21)
[2019-02-10] MEDS: MIDAZOLAM 100mg/100ml NS BAG 100 ML IV PRN ×2 (10:23→16:44)
[2019-02-10] MEDS: DIGOXIN IV 500 MCG/2 ML AMPUL. IV SCH (10:24)
[2019-02-10] MEDS: FAMOTIDINE 20 MG/2 ML VIAL IVP SCH ×2 (10:24→23:59)
[2019-02-10] MEDS ORDERED: VANCOMYCIN 2 GM in IV NORMAL SALINE 500ML BAG 500 ML IV ONE (11:00)
[2019-02-10] MEDS: CEFEPIME HCL IV Push 2 GM VIAL. IVP SCH ×3 (11:22→23:10)
[2019-02-10] MEDS: DEXTROSE 5% IV SCH ×2 (11:47→23:09)
[2019-02-10] MEDS: ACYCLOVIR SODIUM IV SCH ×2 (11:47→23:09)
--- NOTE | 2019-02-10 12:04 | PDOC ---
PULMONARY PROGRESS NOTES Subjective extubated 02/06, re-intubated 02/08 remains restless, agitated on versed/ fentanyl/ persistent encephalopathy low grade fever Vitals Vital Signs Date Time Temp Pulse Resp B/P (MAP) Pulse Ox O2 Delivery O2 Flow Rate FiO2 02/10/19 11:30 95 Ventilator 02/10/19 10:24 114 02/10/19 09:39 19 02/10/19 06:00 117/74 (88) 02/10/19 04:00 98.1 98.1 02/09/19 23:22 3.0 Comments r Lungs: Other (decrease bases) Cardiovascular: Other (irreg irreg) Abdomen: Soft, Non-tender Extremities: Other (trace edema) Skin: Warm Labs Laboratory Tests Test 02/08/19 17:15 02/09/19 05:30 02/09/19 06:00 02/09/19 08:00 O2 Saturation 98 % (92-99) 94 % (92-99) Arterial Blood pH 7.37 (7.35-7.45) 7.39 (7.35-7.45) Arterial Blood pCO2 at Patient Temp 46 mmHg (35-46) 45 mmHg (35-46) Arterial Blood pO2 at Patient Temp 117 mmHg (65-108) 76 mmHg (65-108) Arterial Blood HCO3 26 mmol/L (21-28) 27 mmol/L (21-28) Arterial Blood Base Excess 1 mmol/L (-3-3) 1 mmol/L (-3-3) FiO2 100 50 White Blood Count 6.9 x10^3/uL (4.0-11.0) Red Blood Count 3.06 x10^6/uL (4.30-5.70) Hemoglobin 9.8 g/dL (13.0-17.5) Hematocrit 28.8 % (39.0-53.0) Mean Corpuscular Volume 94 fL (79-100) Mean Corpuscular Hemoglobin 32 pg (25-35) Mean Corpuscular Hemoglobin Concent 34 g/dL (31-37) Red Cell Distribution Width 14.3 % (11.5-14.5) Platelet Count 226 x10^3/uL (140-400) Neutrophils (%) (Auto) 68 % (31-73) Lymphocytes (%) (Auto) 13 % (24-48) Monocytes (%) (Auto) 13 % (0-9) Eosinophils (%) (Auto) 6 % (0-3) Basophils (%) (Auto) 1 % (0-3) Neutrophils # (Auto) 4.7 x10^3uL (1.8-7.7) Lymphocytes # (Auto) 0.9 x10^3/uL (1.0-4.8) Monocytes # (Auto) 0.9 x10^3/uL (0.0-1.1) Eosinophils # (Auto) 0.4 x10^3/uL (0.0-0.7) Basophils # (Auto) 0.0 x10^3/uL (0.0-0.2) Sodium Level 145 mmol/L (136-145) Potassium Level 3.2 mmol/L (3.5-5.1) Chloride Level 108 mmol/L (98-107) Carbon Dioxide Level 29 mmol/L (21-32) Anion Gap 8 (6-14) Blood Urea Nitrogen 13 mg/dL (8-26) Creatinine 0.5 mg/dL (0.7-1.3) Estimated GFR (Cockcroft-Gault) 169.6 BUN/Creatinine Ratio 26 (6-20) Glucose Level 114 mg/dL (70-99) Calcium Level 8.7 mg/dL (8.5-10.1) Magnesium Level 1.7 mg/dL (1.8-2.4) Total Bilirubin 0.6 mg/dL (0.2-1.0) Aspartate Amino Transf (AST/SGOT) 90 U/L (15-37) Alanine Aminotransferase (ALT/SGPT) 636 U/L (16-63) Alkaline Phosphatase 92 U/L (46-116) Total Protein 6.3 g/dL (6.4-8.2) Albumin 2.2 g/dL (3.4-5.0) Albumin/Globulin Ratio 0.5 (1.0-1.7) Test 02/09/19 16:30 02/10/19 04:50 02/10/19 05:30 02/10/19 08:20 Erythrocyte Sedimentation Rate 76 (0-15) White Blood Count 9.5 x10^3/uL (4.0-11.0) Red Blood Count 3.27 x10^6/uL (4.30-5.70) Hemoglobin 10.1 g/dL (13.0-17.5) Hematocrit 31.0 % (39.0-53.0) Mean Corpuscular Volume 95 fL (79-100) Mean Corpuscular Hemoglobin 31 pg (25-35) Mean Corpuscular Hemoglobin Concent 33 g/dL (31-37) Red Cell Distribution Width 14.4 % (11.5-14.5) Platelet Count 304 x10^3/uL (140-400) Neutrophils (%) (Auto) 71 % (31-73) Lymphocytes (%) (Auto) 10 % (24-48) Monocytes (%) (Auto) 14 % (0-9) Eosinophils (%) (Auto) 4 % (0-3) Basophils (%) (Auto) 1 % (0-3) Neutrophils # (Auto) 6.8 x10^3uL (1.8-7.7) Lymphocytes # (Auto) 0.9 x10^3/uL (1.0-4.8) Monocytes # (Auto) 1.4 x10^3/uL (0.0-1.1) Eosinophils # (Auto) 0.4 x10^3/uL (0.0-0.7) Basophils # (Auto) 0.1 x10^3/uL (0.0-0.2) Sodium Level 147 mmol/L (136-145) Potassium Level 3.8 mmol/L (3.5-5.1) Chloride Level 108 mmol/L (98-107) Carbon Dioxide Level 30 mmol/L (21-32) Anion Gap 9 (6-14) Blood Urea Nitrogen 11 mg/dL (8-26) Creatinine 0.6 mg/dL (0.7-1.3) Estimated GFR (Cockcroft-Gault) 137.4 BUN/Creatinine Ratio 18 (6-20) Glucose Level 104 mg/dL (70-99) Calcium Level 8.7 mg/dL (8.5-10.1) Total Bilirubin 0.6 mg/dL (0.2-1.0) Aspartate Amino Transf (AST/SGOT) 52 U/L (15-37) Alanine Aminotransferase (ALT/SGPT) 475 U/L (16-63) Alkaline Phosphatase 105 U/L (46-116) Total Protein 5.9 g/dL (6.4-8.2) Albumin 2.5 g/dL (3.4-5.0) Albumin/Globulin Ratio 0.7 (1.0-1.7) Triglycerides Level 112 mg/dL (0-150) O2 Saturation 93 % (92-99) Arterial Blood pH 7.37 (7.35-7.45) Arterial Blood pCO2 at Patient Temp 50 mmHg (35-46) Arterial Blood pO2 at Patient Temp 74 mmHg (65-108) Arterial Blood HCO3 28 mmol/L (21-28) Arterial Blood Base Excess 2 mmol/L (-3-3) FiO2 vent 60% Laboratory Tests Test 02/09/19 16:30 02/10/19 04:50 02/10/19 05:30 02/10/19 08:20 Erythrocyte Sedimentation Rate 76 (0-15) White Blood Count 9.5 x10^3/uL (4.0-11.0) Red Blood Count 3.27 x10^6/uL (4.30-5.70) Hemoglobin 10.1 g/dL (13.0-17.5) Hematocrit 31.0 % (39.0-53.0) Mean Corpuscular Volume 95 fL (79-100) Mean Corpuscular Hemoglobin 31 pg (25-35) Mean Corpuscular Hemoglobin Concent 33 g/dL (31-37) Red Cell Distribution Width 14.4 % (11.5-14.5) Platelet Count 304 x10^3/uL (140-400) Neutrophils (%) (Auto) 71 % (31-73) Lymphocytes (%) (Auto) 10 % (24-48) Monocytes (%) (Auto) 14 % (0-9) Eosinophils (%) (Auto) 4 % (0-3) Basophils (%) (Auto) 1 % (0-3) Neutrophils # (Auto) 6.8 x10^3uL (1.8-7.7) Lymphocytes # (Auto) 0.9 x10^3/uL (1.0-4.8) Monocytes # (Auto) 1.4 x10^3/uL (0.0-1.1) Eosinophils # (Auto) 0.4 x10^3/uL (0.0-0.7) Basophils # (Auto) 0.1 x10^3/uL (0.0-0.2) Sodium Level 147 mmol/L (136-145) Potassium Level 3.8 mmol/L (3.5-5.1) Chloride Level 108 mmol/L (98-107) Carbon Dioxide Level 30 mmol/L (21-32) Anion Gap 9 (6-14) Blood Urea Nitrogen 11 mg/dL (8-26) Creatinine 0.6 mg/dL (0.7-1.3) Estimated GFR (Cockcroft-Gault) 137.4 BUN/Creatinine Ratio 18 (6-20) Glucose Level 104 mg/dL (70-99) Calcium Level 8.7 mg/dL (8.5-10.1) Total Bilirubin 0.6 mg/dL (0.2-1.0) Aspartate Amino Transf (AST/SGOT) 52 U/L (15-37) Alanine Aminotransferase (ALT/SGPT) 475 U/L (16-63) Alkaline Phosphatase 105 U/L (46-116) Total Protein 5.9 g/dL (6.4-8.2) Albumin 2.5 g/dL (3.4-5.0) Albumin/Globulin Ratio 0.7 (1.0-1.7) Triglycerides Level 112 mg/dL (0-150) O2 Saturation 93 % (92-99) Arterial Blood pH 7.37 (7.35-7.45) Arterial Blood pCO2 at Patient Temp 50 mmHg (35-46) Arterial Blood pO2 at Patient Temp 74 mmHg (65-108) Arterial Blood HCO3 28 mmol/L (21-28) Arterial Blood Base Excess 2 mmol/L (-3-3) FiO2 vent 60% Medications Active Scripts Medications Dose Route/Sig Max Daily Dose Days Date Category Unasyn 3 Gm Vial (Ampicillin Sodium/Sulbactam Na) 3 Gm Vial 2 Gm IV Q4HRS 45 01/05/19 Rx Oxycodone Hcl Immed.release (Oxycodone Hcl) 5 Mg Tablet 10 Mg PO PRN Q4HRS PRN 01/04/19 Rx Oxycontin (Oxycodone HCl) 15 Mg Tab.er.12h 15 Mg PO Q12HR 01/04/19 Rx Colace (Docusate Sodium) 100 Mg Capsule 100 Mg PO BID 30 12/09/18 Rx Hydrochlorothiazide Capsule (Hydrochlorothiazide) 12.5 Mg Capsule 25 Mg PO DAILY 11/29/18 Reported Proair Hfa Inhaler (Albuterol Sulfate) 8.5 Gm Hfa.aer.ad 2 Puff INH PRN Q6HRS PRN 11/29/18 Reported Albuterol Sulfate Neb Soln (Albuterol Sulfate) 2.5 Mg/3 Ml Vial.neb 2.5 Mg NEB PRN Q4-6HRS PRN 11/29/18 Reported Ipratropium [place] 0.2 Mg/1 Ml Solution 0.2 Mg IH PRN Q4-6HRS PRN 11/29/18 Reported Zoloft (Sertraline Hcl) 100 Mg Tablet 1 Tab PO DAILY 11/04/18 Reported Robaxin (Methocarbamol) 500 Mg Tablet 500 Mg PO QID PRN 11/04/18 Reported Azelastine Hcl 6 Ml Drops 1 Drop EACHEYE PRN DAILY PRN 11/04/18 Reported Lisinopril 10 Mg Tablet 10 Mg PO DAILY 08/12/17 Reported Lasix (Furosemide) 20 Mg Tablet 20 Mg PO DAILY 08/12/17 Reported Tamsulosin Hcl 0.4 Mg Cap.er.24h 0.4 Mg PO DAILY 08/12/17 Reported Montelukast Sodium Tablet (Montelukast Sodium) 10 Mg Tablet 10 Mg PO HS 08/12/17 Reported Metoprolol Tartrate 25 Mg Tablet 25 Mg PO BID 07/11/16 Rx Omeprazole 20 Mg Capsule.dr 20 Mg PO DAILY 07/09/16 Reported Topiramate 50 Mg Tablet 1 Tab PO BID 07/09/16 Reported Daliresp (Roflumilast) 500 Mcg Tablet 500 Mcg PO DAILY 07/09/16 Reported Comments reviewed cxr, 02/09 increase bilateral infiltrates/ RLL consolidation/ ET position reviewed Impression . 1. Acute respiratory failure, multifactorial in etiology. Re- Intubated 02/08 2. Persistent encephalopathy/ low grade fever, requiring higher doses of sedation.? [employer] infection. 3. Acute kidney injury. Electrolyte abnormality. improving 4. Elevated troponin, non-ST elevation myocardial infarction. 5. Atrial fibrillation with rapid ventricular response, now rate controlled. 6. Hyperkalemia. resolved 7. Status post back surgery, epidural abscess, incision and drainage, on antibiotic. no extension to brain. 8. Chronic obstructive pulmonary disease. 9. Acute diastolic congestive heart failure. 10. sepsis, ? aspiration, s/p Bronch. no purulent secretions 11. Obstructive sleep apnea-hypopnea syndrome. 12. elevated LFTs improving/ shock liver, improving Plan . 1. AC mode / increase PEEP for hypoxia. f/u CXR 2. watch resp status closely 3. bronchodilator. 4. Bronch done , cultures P 5. Pepcid for stress ulcer prophylaxis. 6. Monitor potassium and creatinine. 7. d/w DR Herring. May benefit from LP but cannot be done due to recent spinal surgery. Abx broaden to cover any [employer] infection 8. abx per id 9. Cardiology on case discussed with RN/ and FOREIGN GOODE MD Feb 10, 2019 12:04
[2019-02-10] MEDS: ENOXAPARIN 40 MG/0.4 ML SYRINGE. SQ SCH (12:32)
--- NOTE | 2019-02-10 13:20 | RAD ---
Single view of the chest. 02/10/2019 5:00 AM Indication: Endotracheal tube placement Comparison: Chest radiograph, yesterday FINDINGS: Endotracheal tube remains in place with tip approximately 4.5 cm above the pauline. There is an enteric tube extending below the diaphragm. There is a right upper extremity PICC line, the tip of which is somewhat poorly visualized. The tip appears to be in expected position. Moderate bilateral pleural effusions are grossly similar. No pneumothorax is seen. Diffuse interstitial coarsening is stable. No acute osseous changes are noted in the interim. IMPRESSION: 1. Stable support lines and tubes 2. Diffuse interstitial thickening and moderate pleural effusions, similar to prior exam Electronically signed by: Lele Salazar MD (02/10/2019 1:17 PM) [id number]
[2019-02-10] MEDS: VANCOMYCIN PER PHARMACY MC PRN (13:52)
--- NOTE | 2019-02-10 14:37 | PDOC ---
PROGRESS NOTES Assessment Problems Medical Problems: (1) Altered mental status Status: Acute (2) Elevated LFTs Status: Acute (3) Hyperkalemia Status: Acute Metabolic encephalopathy, negative brain MRI Seizures, has a history of seizure related to hypoxia in the past Lumbar spine abscess, MRI findings are to be expected, normal evolution Medical problems: obstructive sleep apnea, atrial fibrillation, chronic obstructive pulmonary disease, congestive heart failure Plan Note that pulmonary medicine and infectious disease are requesting lumbar puncture. This would need to be done cisternal as the abscess is at L4-5. I do not perform cisternal taps, I've asked nurse to check with radiology about this. Otherwise treat medical and pulmonary diseases. Subjective None Objective Vital Signs Date Time Temp Pulse Resp B/P (MAP) Pulse Ox O2 Delivery O2 Flow Rate FiO2 02/10/19 13:37 96 Ventilator 02/10/19 10:24 114 02/10/19 10:09 3.0 02/10/19 09:39 19 02/10/19 06:00 117/74 (88) 02/10/19 04:00 98.1 98.1 Intake and Output 02/10/19 07:00 Intake Total 1697.51 ml Output Total 1330 ml Balance 367.51 ml IV Total 845.51 ml Tube Feeding 752 ml Other 100 ml Output Urine Total 1330 ml PHYSICAL EXAM Sedated, not responsive to verbal stimuli, on vent PERRL. EOMI. CN: no focal findings. Muscle tone: normal. Muscle strength: no movement to light pain DTR: 1+ Plantar reflex: silent Gait: not examined in bed. Sensory exam: not cooperative. Cerebellar: not cooperative Review of Relevant I have reviewed the following items valerie (where applicable) has been applied. Labs Laboratory Tests Test 02/08/19 17:15 02/09/19 05:30 02/09/19 06:00 02/09/19 08:00 O2 Saturation 98 % (92-99) 94 % (92-99) Arterial Blood pH 7.37 (7.35-7.45) 7.39 (7.35-7.45) Arterial Blood pCO2 at Patient Temp 46 mmHg (35-46) 45 mmHg (35-46) Arterial Blood pO2 at Patient Temp 117 mmHg (65-108) 76 mmHg (65-108) Arterial Blood HCO3 26 mmol/L (21-28) 27 mmol/L (21-28) Arterial Blood Base Excess 1 mmol/L (-3-3) 1 mmol/L (-3-3) FiO2 100 50 White Blood Count 6.9 x10^3/uL (4.0-11.0) Red Blood Count 3.06 x10^6/uL (4.30-5.70) Hemoglobin 9.8 g/dL (13.0-17.5) Hematocrit 28.8 % (39.0-53.0) Mean Corpuscular Volume 94 fL (79-100) Mean Corpuscular Hemoglobin 32 pg (25-35) Mean Corpuscular Hemoglobin Concent 34 g/dL (31-37) Red Cell Distribution Width 14.3 % (11.5-14.5) Platelet Count 226 x10^3/uL (140-400) Neutrophils (%) (Auto) 68 % (31-73) Lymphocytes (%) (Auto) 13 % (24-48) Monocytes (%) (Auto) 13 % (0-9) Eosinophils (%) (Auto) 6 % (0-3) Basophils (%) (Auto) 1 % (0-3) Neutrophils # (Auto) 4.7 x10^3uL (1.8-7.7) Lymphocytes # (Auto) 0.9 x10^3/uL (1.0-4.8) Monocytes # (Auto) 0.9 x10^3/uL (0.0-1.1) Eosinophils # (Auto) 0.4 x10^3/uL (0.0-0.7) Basophils # (Auto) 0.0 x10^3/uL (0.0-0.2) Sodium Level 145 mmol/L (136-145) Potassium Level 3.2 mmol/L (3.5-5.1) Chloride Level 108 mmol/L (98-107) Carbon Dioxide Level 29 mmol/L (21-32) Anion Gap 8 (6-14) Blood Urea Nitrogen 13 mg/dL (8-26) Creatinine 0.5 mg/dL (0.7-1.3) Estimated GFR (Cockcroft-Gault) 169.6 BUN/Creatinine Ratio 26 (6-20) Glucose Level 114 mg/dL (70-99) Calcium Level 8.7 mg/dL (8.5-10.1) Magnesium Level 1.7 mg/dL (1.8-2.4) Total Bilirubin 0.6 mg/dL (0.2-1.0) Aspartate Amino Transf (AST/SGOT) 90 U/L (15-37) Alanine Aminotransferase (ALT/SGPT) 636 U/L (16-63) Alkaline Phosphatase 92 U/L (46-116) Total Protein 6.3 g/dL (6.4-8.2) Albumin 2.2 g/dL (3.4-5.0) Albumin/Globulin Ratio 0.5 (1.0-1.7) Test 02/09/19 16:30 02/10/19 04:50 02/10/19 05:30 02/10/19 08:20 Erythrocyte Sedimentation Rate 76 (0-15) White Blood Count 9.5 x10^3/uL (4.0-11.0) Red Blood Count 3.27 x10^6/uL (4.30-5.70) Hemoglobin 10.1 g/dL (13.0-17.5) Hematocrit 31.0 % (39.0-53.0) Mean Corpuscular Volume 95 fL (79-100) Mean Corpuscular Hemoglobin 31 pg (25-35) Mean Corpuscular Hemoglobin Concent 33 g/dL (31-37) Red Cell Distribution Width 14.4 % (11.5-14.5) Platelet Count 304 x10^3/uL (140-400) Neutrophils (%) (Auto) 71 % (31-73) Lymphocytes (%) (Auto) 10 % (24-48) Monocytes (%) (Auto) 14 % (0-9) Eosinophils (%) (Auto) 4 % (0-3) Basophils (%) (Auto) 1 % (0-3) Neutrophils # (Auto) 6.8 x10^3uL (1.8-7.7) Lymphocytes # (Auto) 0.9 x10^3/uL (1.0-4.8) Monocytes # (Auto) 1.4 x10^3/uL (0.0-1.1) Eosinophils # (Auto) 0.4 x10^3/uL (0.0-0.7) Basophils # (Auto) 0.1 x10^3/uL (0.0-0.2) Sodium Level 147 mmol/L (136-145) Potassium Level 3.8 mmol/L (3.5-5.1) Chloride Level 108 mmol/L (98-107) Carbon Dioxide Level 30 mmol/L (21-32) Anion Gap 9 (6-14) Blood Urea Nitrogen 11 mg/dL (8-26) Creatinine 0.6 mg/dL (0.7-1.3) Estimated GFR (Cockcroft-Gault) 137.4 BUN/Creatinine Ratio 18 (6-20) Glucose Level 104 mg/dL (70-99) Calcium Level 8.7 mg/dL (8.5-10.1) Total Bilirubin 0.6 mg/dL (0.2-1.0) Aspartate Amino Transf (AST/SGOT) 52 U/L (15-37) Alanine Aminotransferase (ALT/SGPT) 475 U/L (16-63) Alkaline Phosphatase 105 U/L (46-116) Total Protein 5.9 g/dL (6.4-8.2) Albumin 2.5 g/dL (3.4-5.0) Albumin/Globulin Ratio 0.7 (1.0-1.7) Triglycerides Level 112 mg/dL (0-150) O2 Saturation 93 % (92-99) Arterial Blood pH 7.37 (7.35-7.45) Arterial Blood pCO2 at Patient Temp 50 mmHg (35-46) Arterial Blood pO2 at Patient Temp 74 mmHg (65-108) Arterial Blood HCO3 28 mmol/L (21-28) Arterial Blood Base Excess 2 mmol/L (-3-3) FiO2 vent 60% Laboratory Tests Test 02/09/19 16:30 02/10/19 04:50 02/10/19 05:30 02/10/19 08:20 Erythrocyte Sedimentation Rate 76 (0-15) White Blood Count 9.5 x10^3/uL (4.0-11.0) Red Blood Count 3.27 x10^6/uL (4.30-5.70) Hemoglobin 10.1 g/dL (13.0-17.5) Hematocrit 31.0 % (39.0-53.0) Mean Corpuscular Volume 95 fL (79-100) Mean Corpuscular Hemoglobin 31 pg (25-35) Mean Corpuscular Hemoglobin Concent 33 g/dL (31-37) Red Cell Distribution Width 14.4 % (11.5-14.5) Platelet Count 304 x10^3/uL (140-400) Neutrophils (%) (Auto) 71 % (31-73) Lymphocytes (%) (Auto) 10 % (24-48) Monocytes (%) (Auto) 14 % (0-9) Eosinophils (%) (Auto) 4 % (0-3) Basophils (%) (Auto) 1 % (0-3) Neutrophils # (Auto) 6.8 x10^3uL (1.8-7.7) Lymphocytes # (Auto) 0.9 x10^3/uL (1.0-4.8) Monocytes # (Auto) 1.4 x10^3/uL (0.0-1.1) Eosinophils # (Auto) 0.4 x10^3/uL (0.0-0.7) Basophils # (Auto) 0.1 x10^3/uL (0.0-0.2) Sodium Level 147 mmol/L (136-145) Potassium Level 3.8 mmol/L (3.5-5.1) Chloride Level 108 mmol/L (98-107) Carbon Dioxide Level 30 mmol/L (21-32) Anion Gap 9 (6-14) Blood Urea Nitrogen 11 mg/dL (8-26) Creatinine 0.6 mg/dL (0.7-1.3) Estimated GFR (Cockcroft-Gault) 137.4 BUN/Creatinine Ratio 18 (6-20) Glucose Level 104 mg/dL (70-99) Calcium Level 8.7 mg/dL (8.5-10.1) Total Bilirubin 0.6 mg/dL (0.2-1.0) Aspartate Amino Transf (AST/SGOT) 52 U/L (15-37) Alanine Aminotransferase (ALT/SGPT) 475 U/L (16-63) Alkaline Phosphatase 105 U/L (46-116) Total Protein 5.9 g/dL (6.4-8.2) Albumin 2.5 g/dL (3.4-5.0) Albumin/Globulin Ratio 0.7 (1.0-1.7) Triglycerides Level 112 mg/dL (0-150) O2 Saturation 93 % (92-99) Arterial Blood pH 7.37 (7.35-7.45) Arterial Blood pCO2 at Patient Temp 50 mmHg (35-46) Arterial Blood pO2 at Patient Temp 74 mmHg (65-108) Arterial Blood HCO3 28 mmol/L (21-28) Arterial Blood Base Excess 2 mmol/L (-3-3) FiO2 vent 60% Microbiology 02/04/19 Blood Culture - Final, Complete NO GROWTH AFTER 5 DAYS 02/09/19 - Final, Complete Medications Current Medications Sodium Chloride 1,000 ml @ 1,000 mls/hr 1X ONCE IV Last administered on at 15:03; Start 02/04/19 at 15:15; Stop 02/04/19 at 16:14; Status DC Midazolam HCl (Versed) 2 mg 1X ONCE IV Last administered on 02/04/19at 15:05; Start 02/04/19 at 15:15; Stop 02/04/19 at 15:16; Status DC Piperacillin Sod/ Tazobactam Sod (Zosyn Per Pharmacy) 1 each PRN DAILY PRN MC SEE COMMENTS; Start 02/04/19 at 15:15; Stop 02/10/19 at 13:53; Status DC Fentanyl Citrate (Fentanyl 2ml Vial) 50 mcg 1X ONCE IV ; Start 02/04/19 at 15: 15; Stop 02/04/19 at 15:16; Status DC Piperacillin Sod/ Tazobactam Sod 4.5 gm/Sodium Chloride 100 ml @ 200 mls/hr 1X ONCE IV Last administered on 02/04/19at 15:33; Start 02/04/19 at 16:00; Stop 02/04/19 at 16:29; Status DC Etomidate (Amidate) 20 mg STK-MED ONCE IV ; Start 02/04/19 at 15:22; Stop at 15:23; Status DC Naloxone HCl (Narcan) 2 mg STK-MED ONCE .ROUTE ; Start 02/04/19 at 15:22; Stop 02/04/19 at 15:23; Status DC Rocuronium [place] (Zemuron) 50 mg STK-MED ONCE .ROUTE ; Start 02/04/19 at 15:23 ; Stop 02/04/19 at 15:24; Status DC Propofol (Diprivan) 200 mg 1X ONCE IV Last administered on 02/04/19at 16:10; Start 02/04/19 at 15:45; Stop 02/04/19 at 15:46; Status DC Sodium Chloride 1,000 ml @ 1,000 mls/hr 1X ONCE IV Last administered on at 16:05; Start 02/04/19 at 16:00; Stop 02/04/19 at 16:59; Status DC Aspirin (Aspirin) 300 mg 1X STAT CA Last administered on 02/04/19at 17:11; Start 02/04/19 at 15:52; Stop 02/04/19 at 15:55; Status DC Sodium Bicarbonate (Sodium Bicarb Adult 8.4% Syr) 50 meq 1X ONCE IV Last administered on 02/04/19at 17:11; Start 02/04/19 at 16:00; Stop 02/04/19 at 16:01 ; Status DC Levetiracetam 1000 mg/Dextrose 110 ml @ 440 mls/hr 1X ONCE IV Last administered on 02/04/19at 16:54; Start 02/04/19 at 16:00; Stop 02/04/19 at 16:14 ; Status DC Calcium Gluconate (Calcium Gluconate) 1,000 mg 1X ONCE IVP Last administered on 02/04/19at 17:01; Start 02/04/19 at 16:00; Stop 02/04/19 at 16:01; Status DC Propofol 50 ml @ As Directed STK-MED ONCE IV ; Start 02/04/19 at 16:05; Stop at 16:06; Status DC Sodium Chloride 1,000 ml @ 125 mls/hr Q8H IV Last administered on 02/05/19at 07 :12; Start 02/04/19 at 16:09; Stop 02/05/19 at 15:19; Status DC Piperacillin Sod/ Tazobactam Sod 3.375 gm/Sodium Chloride 50 ml @ 100 mls/hr Q6HRS IV Last administered on 02/10/19at 05:12; Start 02/05/19 at 00:00; Stop at 10:24; Status DC Etomidate (Amidate) 20 mg 1X ONCE IV Last administered on 02/04/19at 15:00; Start 02/04/19 at 16:45; Stop 02/04/19 at 16:46; Status DC Rocuronium [place] (Zemuron) 100 mg 1X ONCE IV Last administered on 02/04/19at 15:00; Start 02/04/19 at 16:45; Stop 02/04/19 at 16:46; Status DC Naloxone HCl (Narcan) 2 mg 1X ONCE IV Last administered on 02/04/19at 14:57; Start 02/04/19 at 16:45; Stop 02/04/19 at 16:46; Status DC Norepinephrine Bitartrate 250 ml @ 1.875 mls/ hr CONT PRN IV SEE I/O RECORD; Start 02/04/19 at 17:30 Dopamine HCl/ Dextrose 250 ml @ As Directed STK-MED ONCE IV ; Start 02/04/19 at 17:25; Stop 02/04/19 at 17:26; Status DC Fentanyl Citrate (Fentanyl 2ml Vial) 50 mcg 1X ONCE IV ; Start 02/04/19 at 17: 45; Stop 02/04/19 at 17:46; Status DC Midazolam HCl (Versed) 2 mg 1X ONCE IV ; Start 02/04/19 at 17:45; Stop at 17:46; Status DC Propofol 100 ml @ As Directed STK-MED ONCE IV ; Start 02/04/19 at 18:45; Stop 02/04/19 at 18:46; Status DC Propofol 100 ml @ 1.905 mls/ hr CONT PRN IV SEE I/O RECORD Last administered on 02/09/19at 14:57; Start 02/04/19 at 18:45 Fentanyl Citrate 30 ml @ 0 mls/hr CONT PRN IV SEE PROTOCOL Last administered on 02/10/19at 09:39; Start 02/04/19 at 19:45 Midazolam HCl 100 ml @ 0 mls/hr CONT PRN IV SEE PROTOCOL Last administered on at 10:23; Start 02/04/19 at 19:45 Heparin Sodium/ Dextrose 500 ml @ 0 mls/hr CONT PRN IV SEE I/O RECORD Last administered on 02/06/19at 01:53; Start 02/04/19 at 22:45; Stop 02/06/19 at 12:32 ; Status DC Info (Anti-Coagulation Monitoring By Pharmacy) 1 each PRN DAILY PRN MC SEE COMMENTS Last administered on 02/06/19at 07:57; Start 02/04/19 at 22:45; Stop at 12:34; Status DC Heparin Sodium (Porcine) (Heparin Sodium) 3,250 unit PRN Q6HRS PRN IV FOR UFH LEVEL LESS THAN 0.2 Last administered on 02/05/19at 22:31; Start 02/05/19 at 01: 30; Stop 02/06/19 at 12:32; Status DC Albuterol/ Ipratropium (Duoneb) 3 ml RTQID NEB Last administered on 02/10/19at 11:30; Start 02/05/19 at 08:00 Budesonide (Pulmicort) 0.5 mg RTBID NEB Last administered on 02/10/19at 08:14; Start 02/05/19 at 08:00 Famotidine (Pepcid Vial) 20 mg QHS IVP Last administered on 02/08/19at 19:37; Start 02/05/19 at 21:00; Stop 02/09/19 at 14:23; Status DC Sodium Chloride 1,000 ml @ 125 mls/hr Q8HRS IV ; Start 02/05/19 at 15:30; Status UNV Levetiracetam 500 mg/Dextrose 105 ml @ 420 mls/hr Q12HR IV Last administered on 02/10/19at 10:15; Start 02/05/19 at 16:30 Sodium Chloride 1,000 ml @ 125 mls/hr Q8H IV Last administered on 02/07/19at 00 :00; Start 02/05/19 at 16:00; Stop 02/07/19 at 08:31; Status DC Aspirin (Children'S Aspirin) 81 mg [id number] PO ; Start 02/06/19 at 09:30; Stop 02/08/19 at 11:04; Status DC Potassium Chloride/Water 50 ml @ 50 mls/hr 1X ONCE IV Last administered on at 12:19; Start 02/06/19 at 12:00; Stop 02/06/19 at 12:59; Status DC Hydralazine HCl (Apresoline Inj) 10 mg PRN Q3HRS PRN IVP ELEVATED BP, SEE COMMENTS Last administered on 02/07/19at 12:16; Start 02/06/19 at 11:45 Fentanyl Citrate (Fentanyl 2ml Vial) 50 mcg PRN Q3HRS PRN IV PAIN Last administered on 02/08/19 09:06; Start 02/06/19 at 11:45 Dexmedetomidine HCl 200 mcg/ Sodium Chloride 50 ml @ 0 mls/hr CONT PRN IV PER PROTOCOL Last administered on 02/09/19at 08:58; Start 02/06/19 at 13:30 Sodium Chloride 500 ml @ 500 mls/hr 1X PRN PRN IV SEE COMMENTS; Start at 13:30 Atropine Sulfate (ATROPINE 0.5mg SYRINGE) 0.5 mg PRN Q5MIN PRN IV SEE COMMENTS ; Start 02/06/19 at 13:30 Haloperidol Lactate (Haldol Inj) 2.5 mg 1X PRN PRN IVP AGITATION Last administered on 02/07/19 07:04; Start 02/06/19 at 16:30; Stop 02/07/19 at 07:04 ; Status DC Haloperidol Lactate (Haldol Inj) 2.5 mg 1X PRN PRN IVP AGITATION; Start at 16:30; Status UNV Albuterol Sulfate (Ventolin Neb Soln) 2.5 mg 1X ONCE NEB Last administered on 02/07/19 02:13; Start 02/07/19 at 02:15; Stop 02/07/19 at 02:16; Status DC Lorazepam (Ativan) 1 mg PRN Q1HR PRN IV ANXIETY / AGITATION Last administered on 02/08/19at 12:55; Start 02/07/19 at 07:45 Amino Acids/ Glycerin/ Electrolytes 1,000 ml @ 80 mls/hr [id number] IV Last administered on 02/08/19at 11:27; Start 02/07/19 at 08:30; Stop 02/08/19 at 17:18 ; Status DC Propofol (Diprivan) 1,000 mg STK-MED ONCE IV ; Start 02/04/19 at 19:00; Stop at 09:01; Status DC Nicotine (Nicoderm Cq 21mg) 1 patch DAILY TD Last administered on 02/10/19at 10: 21; Start 02/07/19 at 11:45 Sodium Bicarbonate (Sodium Bicarb Adult 8.4% Syr) 50 meq 1X ONCE IV Last administered on 02/07/19at 12:16; Start 02/07/19 at 11:45; Stop 02/07/19 at 11:46 ; Status DC Furosemide (Lasix) 40 mg 1X ONCE IVP Last administered on 02/08/19at 09:08; Start 02/08/19 at 09:30; Stop 02/08/19 at 09:31; Status DC Aspirin (Aspirin) 150 mg DAILY CA Last administered on 02/09/19at 08:06; Start 02/08/19 at 11:30 Fentanyl Citrate 30 ml @ 0 mls/hr CONT PRN IV SEE PROTOCOL; Start 02/08/19 at 13:00; Status UNV Lorazepam (Ativan) 1 mg PRN Q1HR PRN IV SEE COMMENTS; Start 02/08/19 at 13:00 Lorazepam (Ativan) 2 mg PRN Q1HR PRN IV SEE COMMENTS Last administered on at 11:11; Start 02/08/19 at 13:00 Propofol 100 ml @ 0 mls/hr CONT PRN IV SEE PROTOCOL; Start 02/08/19 at 13:00; Status UNV Morphine Sulfate (Morphine Sulfate) 2 mg PRN Q1HR PRN IV SEE COMMENTS.; Start 02/08/19 at 13:00 Morphine Sulfate (Morphine Sulfate) 4 mg PRN Q1HR PRN IV SEE COMMENTS. Last administered on 02/10/19at 06:38; Start 02/08/19 at 13:00 Midazolam HCl 100 ml @ 0 mls/hr CONT PRN IV SEE PROTOCOL; Start 02/08/19 at 13: 00; Status UNV Vecuronium [place] (Norcuron Bolus) 6 mg PRN Q2HR PRN IV SEDATION Last administered on 02/09/19at 22:30; Start 02/08/19 at 13:45 Gadobutrol (Gadavist) 6 mmol 1X ONCE IV Last administered on 02/08/19at 15:12; Start 02/08/19 at 15:00; Stop 02/08/19 at 15:01; Status DC Gadobutrol (Gadavist) 6 mmol 1X ONCE IV Last administered on 02/08/19at 15:12; Start 02/08/19 at 15:00; Stop 02/08/19 at 15:01; Status DC Metoprolol Tartrate (Lopressor Vial) 5 mg PRN Q6HRS PRN IVP HYPERTENSION, SEE COMMENTS Last administered on 02/09/19at 23:13; Start 02/08/19 at 17:00 Multi-Ingred Cream/Lotion/Oil/ Oint (Artificial Tears Eye Ointment) 1 heriberto PRN Q1HR PRN OU DRY EYE; Start 02/08/19 at 18:45 Lidocaine HCl (Lidocaine 2% Viscous) 100 ml PRN 1X PRN MM MOUTH PAIN Last administered on 02/09/19 11:01; Start 02/09/19 at 11:00; Stop 02/10/19 at 10:59 ; Status DC Lidocaine HCl (Lidocaine 1% 20ml Vial) 20 ml PRN 1X PRN INJ SEE COMMENTS Last administered on 02/09/19at 11:02; Start 02/09/19 at 11:00; Stop 02/10/19 at 10:59 ; Status DC Lidocaine HCl (Lidocaine 1% 20ml Vial) 20 ml STK-MED ONCE .ROUTE ; Start at 10:52; Stop 02/09/19 at 10:53; Status DC Lidocaine HCl (Lidocaine 2% Viscous) 100 ml STK-MED ONCE .ROUTE ; Start at 10:52; Stop 02/09/19 at 10:53; Status DC Enoxaparin Sodium (Lovenox 40mg Syringe) 40 mg Q24H SQ Last administered on at 16:14; Start 02/09/19 at 16:00 Famotidine (Pepcid Vial) 20 mg BID IVP Last administered on 02/10/19at 10:24; Start 02/09/19 at 21:00 Digoxin (Lanoxin) 125 mcg DAILY IV Last administered on 02/10/19at 10:24; Start 02/09/19 at 15:00 Potassium Chloride (KCl Oral Soln) 40 meq 1X ONCE PEG Last administered on at 14:49; Start 02/09/19 at 15:00; Stop 02/09/19 at 15:01; Status DC Magnesium Sulfate/ Dextrose 100 ml @ 100 mls/hr 1X ONCE IV Last administered on 02/09/19at 15:57; Start 02/09/19 at 15:45; Stop 02/09/19 at 16:44; Status DC Acetaminophen (Tylenol) 650 mg 1X ONCE PEG Last administered on 02/09/19at 22: 40; Start 02/09/19 at 22:45; Stop 02/09/19 at 22:46; Status DC Vancomycin HCl (Vanco Per Pharmacy) 1 each PRN DAILY PRN MC SEE COMMENTS Last administered on 02/10/19at 13:52; Start 02/10/19 at 10:30 Cefepime HCl (Maxipime) 2 gm Q8HRS IVP Last administered on 02/10/19at 11:22; Start 02/10/19 at 11:00 Acyclovir Sodium 820 mg/Dextrose 116.4 ml @ 116.4 mls/ hr Q8HRS IV Last administered on 02/10/19at 11:47; Start 02/10/19 at 12:00 Vancomycin HCl 2 gm/Sodium Chloride 500 ml @ 250 mls/hr 1X ONCE IV Last administered on 02/10/19at 11:23; Start 02/10/19 at 11:00; Stop 02/10/19 at 12:59 ; Status DC Vancomycin HCl 1.5 gm/Sodium Chloride 500 ml @ 250 mls/hr Q12H IV ; Start 02/10 at 23:00 Vancomycin HCl (Vancomycin Trough Level) 1 each 1X ONCE MC ; Start 02/11/19 at 22:30; Stop 02/11/19 at 22:31 Active Scripts Active Unasyn 3 Gm Vial (Ampicillin Sodium/Sulbactam Na) 3 Gm Vial 2 Gm IV Q4HRS 45 Days Colace (Docusate Sodium) 100 Mg Capsule 100 Mg PO BID 30 Days Metoprolol Tartrate 25 Mg Tablet 25 Mg PO BID Reported Ambien (Zolpidem Tartrate) 10 Mg Tablet 10 Mg PO PRN QHS PRN Ibuprofen 600 Mg Tablet 600 Mg PO PRN Q6HRS PRN Dulcolax (Bisacodyl) 5 Mg Tablet.dr 10 Mg PO PRN DAILY PRN Mucinex Dm Er 600-30 Mg Tablet (Guaifenesin/Dextromethorphan) 1 Each Tab.er.12h 1 Tab PO BID FENTANYL 100mcg/hr (Fentanyl) 1 Each Patch.td72 1 Patch TD Q48H Gabapentin 600 Mg Tablet 600 Mg PO TID Oxycodone Hcl 5 Mg Capsule 30 Mg PO Q4HRS PRN Hydrochlorothiazide Capsule (Hydrochlorothiazide) 12.5 Mg Capsule 25 Mg PO DAILY Proair Hfa Inhaler (Albuterol Sulfate) 8.5 Gm Hfa.aer.ad 2 Puff INH PRN Q6HRS PRN Albuterol Sulfate Neb Soln (Albuterol Sulfate) 2.5 Mg/3 Ml Vial.neb 2.5 Mg NEB PRN Q4-6HRS PRN Ipratropium [place] 0.2 Mg/1 Ml Solution 0.2 Mg IH PRN Q4-6HRS PRN Zoloft (Sertraline Hcl) 100 Mg Tablet 1 Tab PO DAILY Robaxin (Methocarbamol) 500 Mg Tablet 750 Mg PO Q8HRS PRN Azelastine Hcl 6 Ml Drops 1 Drop EACHEYE PRN DAILY PRN Lisinopril 10 Mg Tablet 10 Mg PO DAILY Lasix (Furosemide) 20 Mg Tablet 20 Mg PO DAILY Tamsulosin Hcl 0.4 Mg Cap.er.24h 0.4 Mg PO DAILY Montelukast Sodium Tablet (Montelukast Sodium) 10 Mg Tablet 10 Mg PO HS Omeprazole 20 Mg Capsule.dr 20 Mg PO DAILY Topiramate 50 Mg Tablet 1 Tab PO BID Daliresp (Roflumilast) 500 Mcg Tablet 500 Mcg PO DAILY Vitals/I & O Vital Sign - Last 24 Hours 02/09/19 02/09/19 02/09/19 02/09/19 14:50 15:00 15:05 16:00 Pulse 92 100 Resp 18 B/P (MAP) 106/67 122/88 (99) Pulse Ox 96 94 O2 Delivery Ventilator Ventilator Mechanical Ventilator 02/09/19 02/09/19 02/09/19 02/09/19 16:00 16:30 16:57 17:00 Temp 98.7 98.7 Pulse 102 107 Resp 18 18 B/P (MAP) 126/90 (102) 127/81 (96) Pulse Ox 94 98 97 O2 Delivery Ventilator Ventilator Ventilator Ventilator 02/09/19 02/09/19 02/09/19 02/09/19 18:00 19:00 19:50 19:54 Pulse 125 118 Resp 22 18 18 B/P (MAP) 154/96 (115) 156/96 (116) Pulse Ox 92 92 97 92 O2 Delivery Ventilator Ventilator Ventilator Ventilator 02/09/19 02/09/19 02/09/19 02/09/19 20:00 20:00 21:00 21:36 Temp 98.6 98.6 Pulse 124 135 Resp 18 18 B/P (MAP) 163/97 (119) 119/69 (86) Pulse Ox 97 92 97 O2 Delivery Ventilator Mechanical Ventilator Ventilator Ventilator 02/09/19 02/09/19 02/09/19 02/09/19 22:00 23:00 23:13 23:20 Temp 100.1 100.1 Pulse 121 114 150 Resp 18 18 18 B/P (MAP) 140/77 (98) 140/91 (107) 140/77 Pulse Ox 94 93 94 O2 Delivery Ventilator Ventilator Ventilator 02/09/19 02/09/19 02/09/19 02/09/19 23:40 23:50 23:59 23:59 Temp 98.6 98.6 Pulse 111 Resp 18 18 B/P (MAP) 128/76 (93) Pulse Ox 94 95 O2 Delivery Ventilator Ventilator Mechanical Ventilator Ventilator 02/10/19 02/10/19 02/10/19 02/10/19 01:00 01:32 01:39 02:00 Pulse 108 98 Resp 18 18 18 B/P (MAP) 108/68 (81) 114/74 (87) Pulse Ox 94 94 94 98 O2 Delivery Ventilator Ventilator Ventilator Ventilator 02/10/19 02/10/19 02/10/19 02/10/19 03:00 03:32 04:00 04:00 Temp 98.1 98.1 Pulse 97 96 Resp 18 18 B/P (MAP) 116/73 (87) 119/74 (89) Pulse Ox 97 95 96 O2 Delivery Ventilator Ventilator Ventilator Mechanical Ventilator 02/10/19 02/10/19 02/10/19 02/10/19 05:00 05:00 05:30 05:50 Pulse 95 Resp 18 18 18 B/P (MAP) 123/88 (100) Pulse Ox 95 96 94 O2 Delivery Ventilator Ventilator Ventilator Ventilator 02/10/19 02/10/19 02/10/19 02/10/19 06:00 06:38 07:08 08:00 Pulse 115 Resp 18 21 B/P (MAP) 117/74 (88) Pulse Ox 92 93 95 O2 Delivery Ventilator Ventilator Mechanical Ventilator O2 Flow Rate 3.0 02/10/19 02/10/19 02/10/19 02/10/19 08:14 08:55 09:39 10:09 Resp 19 Pulse Ox 95 94 95 95 O2 Delivery Ventilator Ventilator Ventilator O2 Flow Rate 3.0 02/10/19 02/10/19 02/10/19 10:24 11:30 13:37 Pulse 114 Pulse Ox 95 96 O2 Delivery Ventilator Ventilator Intake and Output 02/09/19 02/09/19 02/10/19 15:00 23:00 07:00 Intake Total 50 ml 395.51 ml 1252 ml Output Total 400 ml 535 ml 395 ml Balance -350 ml -139.49 ml 857 ml CISCO DE SOUZA MD Feb 10, 2019 14:37
--- NOTE | 2019-02-10 16:06 | PDOC ---
Provider Note Provider Note Patient seen at 0930 intubated, sedated Reviewed lumbar MRI. progression of MRI changes associated with osteomyelitis/ discitis are usual after initiation of treatment and normally follow the clinical improvement from weeks to months sed rate is down continue antibiotics per ID during both lumbar surgeries there was no spinal fluid leak therefore from my standpoint do not feel LP is necessary will follow full consult to follow DELORES LYONS MD Feb 10, 2019 16:06
--- NOTE | 2019-02-10 17:08 | PATHOLOGY ---
Note [facility] Accession Number: [id number] TESTS RESULT FLAG UNITS REF RANGE LAB Clinician Provided Cytology Information No. of containers..01 Other (Miscellaneous) Source: BAL RML / LLL MIXED DIAGNOSIS: 02 BAL RML / LLL MIXED NEGATIVE FOR MALIGNANT CELLS. SCANT CELLULARITY. NORMAL BRONCHIAL CELLS AND MACROPHAGES ARE PRESENT. PULMONARY MACROPHAGES (DUST CELLS) ARE PRESENT. Signed out by: 02 Lemuel Martinez MD, Pathologist NPI- [id number] Performed by: Chucho Henderson, Daytime Caregiver ([facility]) Gross description: 01 3ML, CLEAR, COLORLESS /LCS FLAG LEGEND: L-Low Normal,H-High Normal,LL-Alert Low,HH-Alert High <-Panic Low,>-Panic High,A-Abnormal,AA-Critical Abnormal Performed at: 01 [facility] [address] [place] [address] Marino Glass MD, 02 [facility] [address] [place] [address] Gary Velazquez MD, Specimen Comment: A courtesy copy of this report has been sent to Specimen Comment: [phone], , . Specimen Comment: Report sent to ,DR JAY / DR LENAGHAN Specimen Comment: A duplicate report has been generated due to demographic updates. Performed at: [address], [place], [place] [id number] MD Marino Glass MD Phone: [phone]
[2019-02-10] MEDS: ACETAMINOPHEN 650 MG/20.3 ML SOLUTION. NG PRN (17:31)
--- NOTE | 2019-02-10 18:05 | PDOC ---
ICU PROGRESS NOTES Subjective Intubated, stable resp status, sedated but not improving from encephalopathy yet , febrile need to r/o meningitis, tolerating OG tube feeds at 60 cc/hr, present at bedside Objective Objective sedated, intubated lungs clear anteriorly, no JVD court recording monitor observed abd obese but soft, active bowel sounds present feet cool, somewhat mottled Stratton in place with adequate output Vitals Vital Signs Date Time Temp Pulse Resp B/P (MAP) Pulse Ox O2 Delivery O2 Flow Rate FiO2 02/10/19 17:00 102 22 153/93 (113) 100 Ventilator 02/10/19 16:00 100.3 100.3 02/10/19 15:17 3.0 Input & Output Intake and Output 02/10/19 07:00 Intake Total 1697.51 ml Output Total 1330 ml Balance 367.51 ml IV Total 845.51 ml Tube Feeding 752 ml Other 100 ml Output Urine Total 1330 ml Ventilator Settings O2 Flow Rate: 3.0 Oxygen Delivery Device: Ventilator O2 Humdified: HME Temperature (97-99 F): Yes FiO2: 60 SpO2: 100 DVT Prophylaxis DVT Prophylaxis yes, heparin Stress Ulcer Prophylaxis Stress Ulcer Prophylaxis yes Imaging Imaging Single view of the chest. 02/10/2019 5:00 AM Indication: Endotracheal tube placement Comparison: Chest radiograph, yesterday FINDINGS: Endotracheal tube remains in place with tip approximately 4.5 cm above the pauline. There is an enteric tube extending below the diaphragm. There is a right upper extremity PICC line, the tip of which is somewhat poorly visualized. The tip appears to be in expected position. Moderate bilateral pleural effusions are grossly similar. No pneumothorax is seen. Diffuse interstitial coarsening is stable. No acute osseous changes are noted in the interim. IMPRESSION: 1. Stable support lines and tubes 2. Diffuse interstitial thickening and moderate pleural effusions, similar to prior exam TECHNIQUE:Portable AP chest X-ray COMPARISON:02/08/2019 FINDINGS: ET tube is seen approximately 3.2 cm from the level of pauline and is in appropriate position. NG tube is seen with its tip in the stomach. Heart is mildly enlarged in size. Silhouetting of the bilateral hemidiaphragms with consolidations in the lung bases and blunting of the bilateral costophrenic angles. Prominent bronchial markings are seen in the upper lobes. No pneumothorax. Right-sided PICC line is seen with its tip in the right brachiocephalic trunk IMPRESSION: 1. Bilateral lower lobe consolidations may be secondary to atelectasis or pneumonia. 2. Bilateral small pleural effusions. MRI L-spine: FINDINGS: Comparison study is dated 12/29/2018. Mild S-shaped curvature of the thoracolumbar spine is seen. Degenerative signal changes are seen involving all of the disks of the lumbar spine. Degenerative signal changes are seen within the marrow surrounding these discs. A subacute compression fracture of the superior endplate of the T12 vertebral body is again seen. No retropulsion of bone fragments into the central spinal canal is noted. The conus medullaris is normal morphology, position, and signal characteristics. Increased signal intensity is seen on the T2-weighted images involving the L4-5 disc. Increased signal intensity is seen within the marrow surrounding this disc on the T2-weighted and inversion recovery images. This demonstrates decreased signal intensity on the T1-weighted images and varying degrees of enhancement. These findings have increased since the previous examination. They are concerning for discitis/osteomyelitis. Clinical correlation is recommended. The patient is post left hemilaminectomy at L4-5. The fluid collections within the laminectomy site seen on the previous examination have resolved. Increased soft tissue intensity is seen is seen within the anterior epidural space extending to the left of midline into the left neural foramen at this level which enhances with contrast. This could represent epidural scarring versus epidural phlegmon. The changes of degenerative disc disease are seen throughout the lumbar spine. These consist of mild to moderate generalized disc bulges. Degenerative changes involving the facet joints and mild to moderate ligamentum flavum hypertrophy along with prominence of posterior epidural fat. These findings result in mild central spinal canal stenosis at L2-3 and mild to moderate central spinal canal stenosis at L3-4 mild right neural foraminal stenosis is seen at L3-4. Moderate left neural foraminal stenosis is seen at L4-5. IMPRESSION: Findings are seen concerning for discitis/osteomyelitis at L4-5 as outlined above. Clinical correlation is recommended. Medications Medications Current Medications Acetaminophen (Tylenol) 650 mg 1X ONCE PEG Last administered on 02/09/19at 22: 40; Start 02/09/19 at 22:45; Stop 02/09/19 at 22:46; Status DC Acetaminophen (Tylenol) 650 mg PRN Q6HRS PRN NG MILD PAIN / TEMP Last administered on 02/10/19at 17:31; Start 02/10/19 at 17:00 Acyclovir Sodium 820 mg/Dextrose 116.4 ml @ 116.4 mls/ hr Q8HRS IV Last administered on 02/10/19 11:47; Start 02/10/19 at 12:00 Cefepime HCl (Maxipime) 2 gm Q8HRS IVP Last administered on 02/10/19 16:46; Start 02/10/19 at 11:00 Famotidine (Pepcid Vial) 20 mg BID IVP Last administered on 02/10/19at 10:24; Start 02/09/19 at 21:00 Vancomycin HCl (Vanco Per Pharmacy) 1 each PRN DAILY PRN MC SEE COMMENTS Last administered on 02/10/19at 13:52; Start 02/10/19 at 10:30 Vancomycin HCl (Vancomycin Trough Level) 1 each 1X ONCE MC ; Start 02/11/19 at 22:30; Stop 02/11/19 at 22:31 Vancomycin HCl 1.5 gm/Sodium Chloride 500 ml @ 250 mls/hr Q12H IV ; Start 02/10 at 23:00 Vancomycin HCl 2 gm/Sodium Chloride 500 ml @ 250 mls/hr 1X ONCE IV Last administered on 02/10/19at 11:23; Start 02/10/19 at 11:00; Stop 02/10/19 at 12:59 ; Status DC Physical Exam Lungs: Other (decrease bases) Cardiovascular: Other (irreg irreg) Abdomen: Soft, Non-tender Extremities: Other (trace edema) Skin: Cool (feet) Impression . acute respiratory failure - presumed aspiration with pneumonia NSTEMI acute encephalopathy - possibly infectious likely aspiration pneumonitis shock liver COPD recent spinal abscess s/p lumbar lami but sed rate had returned to normal [employer] and he was nearly finished with 45 day course of antibiotics, MRI suggests discitis/osteomyelitis at L4-5 acute flare of lumbar back pain last week without injury requiring an increase in pain meds for control obesity ADILENE hx of alcoholism constipation Plan . s/p code blue - bag and mask, mechanical ventilation x 48 hrs, then off 48 hrs then reintubated 02/08 acute respiratory failure - presumed aspiration - continue antibiotics NSTEMI - cardiology following acute encephalopathy - LP ordered likely aspiration pneumonitis - continue antibiotics shock liver - improving - monitor COPD - continue neb treatments recent spinal abscess s/p lumbar lami but sed rate had returned to normal [employer] and he was nearly finished with 45 day course of antibiotics, recheck sed rate, consult Dr. Boyd acute flare of lumbar back pain last week without injury requiring an increase in pain meds for control - MRI L-spine obesity ADILENE hx of alcoholism - I am unaware of him drinking alcohol while at [facility] and admission alcohol level was undetectable anemia - stable AL - he was taking unprescribed NSAIDS, osteoBiflex gummies from home at [facility] for pain Afib/RVR - rate controlled constipation per [facility] imaging Roseann JAY MD Feb 10, 2019 18:05
[2019-02-10] MEDS: PROPOFOL 100 ML IV PRN (21:26)
[2019-02-11] VITALS (25 sets, daily range): BP systolic 110–166; BP diastolic 57–93
[2019-02-11] MEDS: VANCOMYCIN 1.5 GM in IV NORMAL SALINE 500ML BAG 500 ML IV SCH ×2 (00:01→12:03)
[2019-02-11] MEDS: PROPOFOL 100 ML IV PRN ×3 (00:25→21:41)
[2019-02-11] MEDS: CEFEPIME HCL IV Push 2 GM VIAL. IVP SCH ×3 (05:33→22:18)
[2019-02-11] MEDS: ACYCLOVIR SODIUM IV SCH ×3 (05:34→22:18)
[2019-02-11] MEDS: MIDAZOLAM 100mg/100ml NS BAG 100 ML IV PRN (05:34)
[2019-02-11] MEDS: DEXTROSE 5% IV SCH ×3 (05:34→22:18)
[2019-02-11 06:09] LABS: BASO % 1 % (0-3); CREATININE 0.6 mg/dL (0.7-1.3); EOS # 0.8 x10^3/uL (0.0-0.7); EOS % 9 % (0-3); GFR 137.4; HEMOGLOBIN 9.7 g/dL (13.0-17.5); LYMPH # 0.9 x10^3/uL (1.0-4.8); LYMPH % 9 % (24-48); MEAN CORPUSCULAR HEMOGLOBIN 31 pg (25-35); MEAN CORPUSCULAR HGB CONC 32 g/dL (31-37); MEAN CORPUSCULAR VOLUME 95 fL (79-100); MONO # 1.3 x10^3/uL (0.0-1.1); MONO % 13 % (0-9); NEUT # 6.5 x10^3uL (1.8-7.7); NEUT % 69 % (31-73); PLATELET COUNT 312 x10^3/uL (140-400); RED BLOOD COUNT 3.17 x10^6/uL (4.30-5.70); RED CELL DISTRIBUTION WIDTH 14.2 % (11.5-14.5); WHITE BLOOD COUNT 9.5 x10^3/uL (4.0-11.0)
[2019-02-11] MEDS: BUDESONIDE 0.5 MG/2 ML NEBU. NEB SCH ×2 (08:00→19:41)
--- NOTE | 2019-02-11 08:18 | PDOC ---
Infectious Disease Note Subjective Subjective sedated, intubated ROS ROS no n/v/d/ Vital Sign Vital Signs Vital Signs Date Time Temp Pulse Resp B/P (MAP) Pulse Ox O2 Delivery O2 Flow Rate FiO2 02/11/19 06:00 97 21 156/88 (110) 97 Ventilator 02/11/19 04:00 99.8 99.8 02/10/19 21:05 3.0 Physical Exam PHYSICAL EXAM GENERAL: reintubated HEENT: ETT and OGT in place. LUNGS: Diminished aeration. HEART: S1 and S2. ABDOMEN: Obese, soft. No grimace or guarding to palpation, with bowel sounds present. GENITOURINARY: Stratton in place. EXTREMITIES: Generalized trace edema. No cyanosis. SKIN: Warm, without rash. NEUROLOGIC: sedated on vent PIV Labs Lab Laboratory Tests Test 02/10/19 08:20 02/11/19 05:30 O2 Saturation 93 % (92-99) Arterial Blood pH 7.37 (7.35-7.45) Arterial Blood pCO2 at Patient Temp 50 mmHg (35-46) Arterial Blood pO2 at Patient Temp 74 mmHg (65-108) Arterial Blood HCO3 28 mmol/L (21-28) Arterial Blood Base Excess 2 mmol/L (-3-3) FiO2 vent 60% White Blood Count 9.5 x10^3/uL (4.0-11.0) Red Blood Count 3.17 x10^6/uL (4.30-5.70) Hemoglobin 9.7 g/dL (13.0-17.5) Hematocrit 30.0 % (39.0-53.0) Mean Corpuscular Volume 95 fL (79-100) Mean Corpuscular Hemoglobin 31 pg (25-35) Mean Corpuscular Hemoglobin Concent 32 g/dL (31-37) Red Cell Distribution Width 14.2 % (11.5-14.5) Platelet Count 312 x10^3/uL (140-400) Neutrophils (%) (Auto) 69 % (31-73) Lymphocytes (%) (Auto) 9 % (24-48) Monocytes (%) (Auto) 13 % (0-9) Eosinophils (%) (Auto) 9 % (0-3) Basophils (%) (Auto) 1 % (0-3) Neutrophils # (Auto) 6.5 x10^3uL (1.8-7.7) Lymphocytes # (Auto) 0.9 x10^3/uL (1.0-4.8) Monocytes # (Auto) 1.3 x10^3/uL (0.0-1.1) Eosinophils # (Auto) 0.8 x10^3/uL (0.0-0.7) Basophils # (Auto) 0.0 x10^3/uL (0.0-0.2) Creatinine 0.6 mg/dL (0.7-1.3) Estimated GFR (Cockcroft-Gault) 137.4 Micro Microbiology 02/04/19 Blood Culture - Preliminary, Resulted NO GROWTH AFTER 2 DAYS Objective Assessment 1. Sepsis ??, likely had dehydration and too much pain meds 2. Fever. 3. Suspect aspiration. 4. Post-surgical spine infection with epidural abscess, status post incision and drainage on 12/30/2018, with growth of Enterococcus, ampicillin sensitive. He was undergoing a treatment with ampicillin prior to this admission. His original back surgery was on 12/09/2018. Recent sed rate from 01/31/2019 was 25. 5. Acute respiratory failure. 6. Acute encephalopathy. 7. Non-ST elevation myocardial infarction. 8. Acute kidney injury. 9. Shock liver. 10. Myoclonic movements, on Keppra. 11. Hypertension. 12. Atrial fibrillation. 13. Obstructive sleep apnea. 14. Morbid obesity. 15. Chronic obstructive pulmonary disease. Plan Plan of Care Continue vanc, cefepime, acyclovir f/u cultures Monitor labs/VS/temp Supportive care MRI lumbar noted, this is expected finding do not believe recent spine infection is playing any role in current illness D/w nursing LP pending d/w brother KOKO JONES MD Feb 11, 2019 08:18
[2019-02-11] MEDS: IPRATRPIUM/ALBUTEROL 0.5/2.5MG 3 ML NEBU. NEB SCH ×4 (08:19→19:35)
[2019-02-11] MEDS: levETIRAcetam 500 MG in IV DEXTROSE 5% 100ML 100 ML IV SCH ×2 (08:22→21:38)
[2019-02-11] MEDS: DIGOXIN IV 500 MCG/2 ML AMPUL. IV SCH (08:23)
[2019-02-11] MEDS: FAMOTIDINE 20 MG/2 ML VIAL IVP SCH ×2 (08:23→21:38)
[2019-02-11] MEDS: NICOTINE 21MG PATCH. TD SCH (08:24)
[2019-02-11 08:41] LABS: BASE EXCESS ABG 4 mmol/L (-3-3); HCO3 ABG 30 mmol/L (21-28); PCO2 ABG 47 mmHg (35-46); PO2 ABG 74 mmHg (65-108); SAT O2 ABG 94 % (92-99)
[2019-02-11 08:44] LABS: FIO2 ABG 60
--- NOTE | 2019-02-11 09:03 | PDOC ---
PROGRESS NOTES Assessment Problems Medical Problems: (1) Altered mental status Status: Acute (2) Elevated LFTs Status: Acute (3) Hyperkalemia Status: Acute Metabolic encephalopathy, negative brain MRI Seizures, has a history of seizure related to hypoxia in the past Lumbar spine abscess, MRI findings are to be expected, normal evolution Medical problems: obstructive sleep apnea, atrial fibrillation, chronic obstructive pulmonary disease, congestive heart failure,pulmonary infiltrate Plan Risks>benefits of cisternal tap, patient's mental status improving, cancelled Otherwise treat medical and pulmonary diseases. Discussed with family member Subjective none Objective Vital Signs Date Time Temp Pulse Resp B/P (MAP) Pulse Ox O2 Delivery O2 Flow Rate FiO2 02/11/19 08:23 95 02/11/19 08:19 100 Ventilator 02/11/19 06:45 3.0 02/11/19 06:00 21 156/88 (110) 02/11/19 04:00 99.8 99.8 Intake and Output 02/11/19 06:59 Intake Total 3758.7 ml Output Total 1760 ml Balance 1998.7 ml IV Total 1957.7 ml Tube Feeding 1551 ml Other 250 ml Output Urine Total 1760 ml PHYSICAL EXAM Sedated,stirs to pain, on vent PERRL. EOMI. CN: no focal findings. Muscle tone: normal. Muscle strength: no movement to light pain DTR: 1+ Plantar reflex: silent Gait: not examined in bed. Sensory exam: not cooperative. Cerebellar: not cooperative Review of Relevant I have reviewed the following items valerie (where applicable) has been applied. Labs Laboratory Tests Test 02/09/19 16:30 02/10/19 04:50 02/10/19 05:30 02/10/19 08:20 Erythrocyte Sedimentation Rate 76 (0-15) White Blood Count 9.5 x10^3/uL (4.0-11.0) Red Blood Count 3.27 x10^6/uL (4.30-5.70) Hemoglobin 10.1 g/dL (13.0-17.5) Hematocrit 31.0 % (39.0-53.0) Mean Corpuscular Volume 95 fL (79-100) Mean Corpuscular Hemoglobin 31 pg (25-35) Mean Corpuscular Hemoglobin Concent 33 g/dL (31-37) Red Cell Distribution Width 14.4 % (11.5-14.5) Platelet Count 304 x10^3/uL (140-400) Neutrophils (%) (Auto) 71 % (31-73) Lymphocytes (%) (Auto) 10 % (24-48) Monocytes (%) (Auto) 14 % (0-9) Eosinophils (%) (Auto) 4 % (0-3) Basophils (%) (Auto) 1 % (0-3) Neutrophils # (Auto) 6.8 x10^3uL (1.8-7.7) Lymphocytes # (Auto) 0.9 x10^3/uL (1.0-4.8) Monocytes # (Auto) 1.4 x10^3/uL (0.0-1.1) Eosinophils # (Auto) 0.4 x10^3/uL (0.0-0.7) Basophils # (Auto) 0.1 x10^3/uL (0.0-0.2) Sodium Level 147 mmol/L (136-145) Potassium Level 3.8 mmol/L (3.5-5.1) Chloride Level 108 mmol/L (98-107) Carbon Dioxide Level 30 mmol/L (21-32) Anion Gap 9 (6-14) Blood Urea Nitrogen 11 mg/dL (8-26) Creatinine 0.6 mg/dL (0.7-1.3) Estimated GFR (Cockcroft-Gault) 137.4 BUN/Creatinine Ratio 18 (6-20) Glucose Level 104 mg/dL (70-99) Calcium Level 8.7 mg/dL (8.5-10.1) Total Bilirubin 0.6 mg/dL (0.2-1.0) Aspartate Amino Transf (AST/SGOT) 52 U/L (15-37) Alanine Aminotransferase (ALT/SGPT) 475 U/L (16-63) Alkaline Phosphatase 105 U/L (46-116) Total Protein 5.9 g/dL (6.4-8.2) Albumin 2.5 g/dL (3.4-5.0) Albumin/Globulin Ratio 0.7 (1.0-1.7) Triglycerides Level 112 mg/dL (0-150) O2 Saturation 93 % (92-99) Arterial Blood pH 7.37 (7.35-7.45) Arterial Blood pCO2 at Patient Temp 50 mmHg (35-46) Arterial Blood pO2 at Patient Temp 74 mmHg (65-108) Arterial Blood HCO3 28 mmol/L (21-28) Arterial Blood Base Excess 2 mmol/L (-3-3) FiO2 vent 60% Test 02/11/19 05:30 02/11/19 08:30 White Blood Count 9.5 x10^3/uL (4.0-11.0) Red Blood Count 3.17 x10^6/uL (4.30-5.70) Hemoglobin 9.7 g/dL (13.0-17.5) Hematocrit 30.0 % (39.0-53.0) Mean Corpuscular Volume 95 fL (79-100) Mean Corpuscular Hemoglobin 31 pg (25-35) Mean Corpuscular Hemoglobin Concent 32 g/dL (31-37) Red Cell Distribution Width 14.2 % (11.5-14.5) Platelet Count 312 x10^3/uL (140-400) Neutrophils (%) (Auto) 69 % (31-73) Lymphocytes (%) (Auto) 9 % (24-48) Monocytes (%) (Auto) 13 % (0-9) Eosinophils (%) (Auto) 9 % (0-3) Basophils (%) (Auto) 1 % (0-3) Neutrophils # (Auto) 6.5 x10^3uL (1.8-7.7) Lymphocytes # (Auto) 0.9 x10^3/uL (1.0-4.8) Monocytes # (Auto) 1.3 x10^3/uL (0.0-1.1) Eosinophils # (Auto) 0.8 x10^3/uL (0.0-0.7) Basophils # (Auto) 0.0 x10^3/uL (0.0-0.2) Creatinine 0.6 mg/dL (0.7-1.3) Estimated GFR (Cockcroft-Gault) 137.4 O2 Saturation 94 % (92-99) Arterial Blood pH 7.42 (7.35-7.45) Arterial Blood pCO2 at Patient Temp 47 mmHg (35-46) Arterial Blood pO2 at Patient Temp 74 mmHg (65-108) Arterial Blood HCO3 30 mmol/L (21-28) Arterial Blood Base Excess 4 mmol/L (-3-3) FiO2 60 Laboratory Tests Test 02/11/19 05:30 02/11/19 08:30 White Blood Count 9.5 x10^3/uL (4.0-11.0) Red Blood Count 3.17 x10^6/uL (4.30-5.70) Hemoglobin 9.7 g/dL (13.0-17.5) Hematocrit 30.0 % (39.0-53.0) Mean Corpuscular Volume 95 fL (79-100) Mean Corpuscular Hemoglobin 31 pg (25-35) Mean Corpuscular Hemoglobin Concent 32 g/dL (31-37) Red Cell Distribution Width 14.2 % (11.5-14.5) Platelet Count 312 x10^3/uL (140-400) Neutrophils (%) (Auto) 69 % (31-73) Lymphocytes (%) (Auto) 9 % (24-48) Monocytes (%) (Auto) 13 % (0-9) Eosinophils (%) (Auto) 9 % (0-3) Basophils (%) (Auto) 1 % (0-3) Neutrophils # (Auto) 6.5 x10^3uL (1.8-7.7) Lymphocytes # (Auto) 0.9 x10^3/uL (1.0-4.8) Monocytes # (Auto) 1.3 x10^3/uL (0.0-1.1) Eosinophils # (Auto) 0.8 x10^3/uL (0.0-0.7) Basophils # (Auto) 0.0 x10^3/uL (0.0-0.2) Creatinine 0.6 mg/dL (0.7-1.3) Estimated GFR (Cockcroft-Gault) 137.4 O2 Saturation 94 % (92-99) Arterial Blood pH 7.42 (7.35-7.45) Arterial Blood pCO2 at Patient Temp 47 mmHg (35-46) Arterial Blood pO2 at Patient Temp 74 mmHg (65-108) Arterial Blood HCO3 30 mmol/L (21-28) Arterial Blood Base Excess 4 mmol/L (-3-3) FiO2 60 Microbiology 02/04/19 Blood Culture - Final, Complete NO GROWTH AFTER 5 DAYS 02/09/19 - Final, Complete Medications Current Medications Sodium Chloride 1,000 ml @ 1,000 mls/hr 1X ONCE IV Last administered on at 15:03; Start 02/04/19 at 15:15; Stop 02/04/19 at 16:14; Status DC Midazolam HCl (Versed) 2 mg 1X ONCE IV Last administered on 02/04/19at 15:05; Start 02/04/19 at 15:15; Stop 02/04/19 at 15:16; Status DC Piperacillin Sod/ Tazobactam Sod (Zosyn Per Pharmacy) 1 each PRN DAILY PRN MC SEE COMMENTS; Start 02/04/19 at 15:15; Stop 02/10/19 at 13:53; Status DC Fentanyl Citrate (Fentanyl 2ml Vial) 50 mcg 1X ONCE IV ; Start 02/04/19 at 15: 15; Stop 02/04/19 at 15:16; Status DC Piperacillin Sod/ Tazobactam Sod 4.5 gm/Sodium Chloride 100 ml @ 200 mls/hr 1X ONCE IV Last administered on 02/04/19at 15:33; Start 02/04/19 at 16:00; Stop 02/04/19 at 16:29; Status DC Etomidate (Amidate) 20 mg STK-MED ONCE IV ; Start 02/04/19 at 15:22; Stop at 15:23; Status DC Naloxone HCl (Narcan) 2 mg STK-MED ONCE .ROUTE ; Start 02/04/19 at 15:22; Stop 02/04/19 at 15:23; Status DC Rocuronium Winigan (Zemuron) 50 mg STK-MED ONCE .ROUTE ; Start 02/04/19 at 15:23 ; Stop 02/04/19 at 15:24; Status DC Propofol (Diprivan) 200 mg 1X ONCE IV Last administered on 02/04/19at 16:10; Start 02/04/19 at 15:45; Stop 02/04/19 at 15:46; Status DC Sodium Chloride 1,000 ml @ 1,000 mls/hr 1X ONCE IV Last administered on at 16:05; Start 02/04/19 at 16:00; Stop 02/04/19 at 16:59; Status DC Aspirin (Aspirin) 300 mg 1X STAT TN Last administered on 02/04/19at 17:11; Start 02/04/19 at 15:52; Stop 02/04/19 at 15:55; Status DC Sodium Bicarbonate (Sodium Bicarb Adult 8.4% Syr) 50 meq 1X ONCE IV Last administered on 02/04/19at 17:11; Start 02/04/19 at 16:00; Stop 02/04/19 at 16:01 ; Status DC Levetiracetam 1000 mg/Dextrose 110 ml @ 440 mls/hr 1X ONCE IV Last administered on 02/04/19at 16:54; Start 02/04/19 at 16:00; Stop 02/04/19 at 16:14 ; Status DC Calcium Gluconate (Calcium Gluconate) 1,000 mg 1X ONCE IVP Last administered on 02/04/19at 17:01; Start 02/04/19 at 16:00; Stop 02/04/19 at 16:01; Status DC Propofol 50 ml @ As Directed STK-MED ONCE IV ; Start 02/04/19 at 16:05; Stop at 16:06; Status DC Sodium Chloride 1,000 ml @ 125 mls/hr Q8H IV Last administered on 02/05/19at 07 :12; Start 02/04/19 at 16:09; Stop 02/05/19 at 15:19; Status DC Piperacillin Sod/ Tazobactam Sod 3.375 gm/Sodium Chloride 50 ml @ 100 mls/hr Q6HRS IV Last administered on 02/10/19at 05:12; Start 02/05/19 at 00:00; Stop at 10:24; Status DC Etomidate (Amidate) 20 mg 1X ONCE IV Last administered on 02/04/19at 15:00; Start 02/04/19 at 16:45; Stop 02/04/19 at 16:46; Status DC Rocuronium Winigan (Zemuron) 100 mg 1X ONCE IV Last administered on 02/04/19at 15:00; Start 02/04/19 at 16:45; Stop 02/04/19 at 16:46; Status DC Naloxone HCl (Narcan) 2 mg 1X ONCE IV Last administered on 02/04/19at 14:57; Start 02/04/19 at 16:45; Stop 02/04/19 at 16:46; Status DC Norepinephrine Bitartrate 250 ml @ 1.875 mls/ hr CONT PRN IV SEE I/O RECORD; Start 02/04/19 at 17:30 Dopamine HCl/ Dextrose 250 ml @ As Directed STK-MED ONCE IV ; Start 02/04/19 at 17:25; Stop 02/04/19 at 17:26; Status DC Fentanyl Citrate (Fentanyl 2ml Vial) 50 mcg 1X ONCE IV ; Start 02/04/19 at 17: 45; Stop 02/04/19 at 17:46; Status DC Midazolam HCl (Versed) 2 mg 1X ONCE IV ; Start 02/04/19 at 17:45; Stop at 17:46; Status DC Propofol 100 ml @ As Directed STK-MED ONCE IV ; Start 02/04/19 at 18:45; Stop 02/04/19 at 18:46; Status DC Propofol 100 ml @ 1.905 mls/ hr CONT PRN IV SEE I/O RECORD Last administered on 02/11/19at 00:25; Start 02/04/19 at 18:45 Fentanyl Citrate 30 ml @ 0 mls/hr CONT PRN IV SEE PROTOCOL Last administered on 02/11/19at 05:20; Start 02/04/19 at 19:45 Midazolam HCl 100 ml @ 0 mls/hr CONT PRN IV SEE PROTOCOL Last administered on at 05:34; Start 02/04/19 at 19:45 Heparin Sodium/ Dextrose 500 ml @ 0 mls/hr CONT PRN IV SEE I/O RECORD Last administered on 02/06/19at 01:53; Start 02/04/19 at 22:45; Stop 02/06/19 at 12:32 ; Status DC Info (Anti-Coagulation Monitoring By Pharmacy) 1 each PRN DAILY PRN MC SEE COMMENTS Last administered on 02/06/19at 07:57; Start 02/04/19 at 22:45; Stop at 12:34; Status DC Heparin Sodium (Porcine) (Heparin Sodium) 3,250 unit PRN Q6HRS PRN IV FOR UFH LEVEL LESS THAN 0.2 Last administered on 02/05/19at 22:31; Start 02/05/19 at 01: 30; Stop 02/06/19 at 12:32; Status DC Albuterol/ Ipratropium (Duoneb) 3 ml RTQID NEB Last administered on 02/11/19at 08:19; Start 02/05/19 at 08:00 Budesonide (Pulmicort) 0.5 mg RTBID NEB Last administered on 02/11/19at 08:00; Start 02/05/19 at 08:00 Famotidine (Pepcid Vial) 20 mg QHS IVP Last administered on 02/08/19at 19:37; Start 02/05/19 at 21:00; Stop 02/09/19 at 14:23; Status DC Sodium Chloride 1,000 ml @ 125 mls/hr Q8HRS IV ; Start 02/05/19 at 15:30; Status UNV Levetiracetam 500 mg/Dextrose 105 ml @ 420 mls/hr Q12HR IV Last administered on 02/11/19at 08:22; Start 02/05/19 at 16:30 Sodium Chloride 1,000 ml @ 125 mls/hr Q8H IV Last administered on 02/07/19at 00 :00; Start 02/05/19 at 16:00; Stop 02/07/19 at 08:31; Status DC Aspirin (Children'S Aspirin) 81 mg DAILYWBKFT PO ; Start 02/06/19 at 09:30; Stop 02/08/19 at 11:04; Status DC Potassium Chloride/Water 50 ml @ 50 mls/hr 1X ONCE IV Last administered on at 12:19; Start 02/06/19 at 12:00; Stop 02/06/19 at 12:59; Status DC Hydralazine HCl (Apresoline Inj) 10 mg PRN Q3HRS PRN IVP ELEVATED BP, SEE COMMENTS Last administered on 02/07/19at 12:16; Start 02/06/19 at 11:45 Fentanyl Citrate (Fentanyl 2ml Vial) 50 mcg PRN Q3HRS PRN IV PAIN Last administered on 02/08/19at 09:06; Start 02/06/19 at 11:45 Dexmedetomidine HCl 200 mcg/ Sodium Chloride 50 ml @ 0 mls/hr CONT PRN IV PER PROTOCOL Last administered on 02/09/19at 08:58; Start 02/06/19 at 13:30 Sodium Chloride 500 ml @ 500 mls/hr 1X PRN PRN IV SEE COMMENTS; Start at 13:30 Atropine Sulfate (ATROPINE 0.5mg SYRINGE) 0.5 mg PRN Q5MIN PRN IV SEE COMMENTS ; Start 02/06/19 at 13:30 Haloperidol Lactate (Haldol Inj) 2.5 mg 1X PRN PRN IVP AGITATION Last administered on 02/07/19at 07:04; Start 02/06/19 at 16:30; Stop 02/07/19 at 07:04 ; Status DC Haloperidol Lactate (Haldol Inj) 2.5 mg 1X PRN PRN IVP AGITATION; Start at 16:30; Status UNV Albuterol Sulfate (Ventolin Neb Soln) 2.5 mg 1X ONCE NEB Last administered on 02/07/19 02:13; Start 02/07/19 at 02:15; Stop 02/07/19 at 02:16; Status DC Lorazepam (Ativan) 1 mg PRN Q1HR PRN IV ANXIETY / AGITATION Last administered on 02/08/19 12:55; Start 02/07/19 at 07:45 Amino Acids/ Glycerin/ Electrolytes 1,000 ml @ 80 mls/hr [id number] IV Last administered on 02/08/19 11:27; Start 02/07/19 at 08:30; Stop 02/08/19 at 17:18 ; Status DC Propofol (Diprivan) 1,000 mg STK-MED ONCE IV ; Start 02/04/19 at 19:00; Stop at 09:01; Status DC Nicotine (Nicoderm Cq 21mg) 1 patch DAILY TD Last administered on 02/11/19at 08: 24; Start 02/07/19 at 11:45 Sodium Bicarbonate (Sodium Bicarb Adult 8.4% Syr) 50 meq 1X ONCE IV Last administered on 02/07/19 12:16; Start 02/07/19 at 11:45; Stop 02/07/19 at 11:46 ; Status DC Furosemide (Lasix) 40 mg 1X ONCE IVP Last administered on 02/08/19 09:08; Start 02/08/19 at 09:30; Stop 02/08/19 at 09:31; Status DC Aspirin (Aspirin) 150 mg DAILY TN Last administered on 02/09/19 08:06; Start 02/08/19 at 11:30 Fentanyl Citrate 30 ml @ 0 mls/hr CONT PRN IV SEE PROTOCOL; Start 02/08/19 at 13:00; Status UNV Lorazepam (Ativan) 1 mg PRN Q1HR PRN IV SEE COMMENTS; Start 02/08/19 at 13:00 Lorazepam (Ativan) 2 mg PRN Q1HR PRN IV SEE COMMENTS Last administered on at 08:24; Start 02/08/19 at 13:00 Propofol 100 ml @ 0 mls/hr CONT PRN IV SEE PROTOCOL; Start 02/08/19 at 13:00; Status UNV Morphine Sulfate (Morphine Sulfate) 2 mg PRN Q1HR PRN IV SEE COMMENTS.; Start 02/08/19 at 13:00 Morphine Sulfate (Morphine Sulfate) 4 mg PRN Q1HR PRN IV SEE COMMENTS. Last administered on 02/10/19at 21:05; Start 02/08/19 at 13:00 Midazolam HCl 100 ml @ 0 mls/hr CONT PRN IV SEE PROTOCOL; Start 02/08/19 at 13: 00; Status UNV Vecuronium Winigan (Norcuron Bolus) 6 mg PRN Q2HR PRN IV SEDATION Last administered on 02/09/19at 22:30; Start 02/08/19 at 13:45 Gadobutrol (Gadavist) 6 mmol 1X ONCE IV Last administered on 02/08/19at 15:12; Start 02/08/19 at 15:00; Stop 02/08/19 at 15:01; Status DC Gadobutrol (Gadavist) 6 mmol 1X ONCE IV Last administered on 02/08/19at 15:12; Start 02/08/19 at 15:00; Stop 02/08/19 at 15:01; Status DC Metoprolol Tartrate (Lopressor Vial) 5 mg PRN Q6HRS PRN IVP HYPERTENSION, SEE COMMENTS Last administered on 02/09/19at 23:13; Start 02/08/19 at 17:00 Multi-Ingred Cream/Lotion/Oil/ Oint (Artificial Tears Eye Ointment) 1 heriberto PRN Q1HR PRN OU DRY EYE; Start 02/08/19 at 18:45 Lidocaine HCl (Lidocaine 2% Viscous) 100 ml PRN 1X PRN MM MOUTH PAIN Last administered on 02/09/19at 11:01; Start 02/09/19 at 11:00; Stop 02/10/19 at 10:59 ; Status DC Lidocaine HCl (Lidocaine 1% 20ml Vial) 20 ml PRN 1X PRN INJ SEE COMMENTS Last administered on 02/09/19at 11:02; Start 02/09/19 at 11:00; Stop 02/10/19 at 10:59 ; Status DC Lidocaine HCl (Lidocaine 1% 20ml Vial) 20 ml STK-MED ONCE .ROUTE ; Start at 10:52; Stop 02/09/19 at 10:53; Status DC Lidocaine HCl (Lidocaine 2% Viscous) 100 ml STK-MED ONCE .ROUTE ; Start at 10:52; Stop 02/09/19 at 10:53; Status DC Enoxaparin Sodium (Lovenox 40mg Syringe) 40 mg Q24H SQ Last administered on at 16:14; Start 02/09/19 at 16:00 Famotidine (Pepcid Vial) 20 mg BID IVP Last administered on 02/11/19at 08:23; Start 02/09/19 at 21:00 Digoxin (Lanoxin) 125 mcg DAILY IV Last administered on 02/11/19 08:23; Start 02/09/19 at 15:00 Potassium Chloride (KCl Oral Soln) 40 meq 1X ONCE PEG Last administered on at 14:49; Start 02/09/19 at 15:00; Stop 02/09/19 at 15:01; Status DC Magnesium Sulfate/ Dextrose 100 ml @ 100 mls/hr 1X ONCE IV Last administered on 02/09/19at 15:57; Start 02/09/19 at 15:45; Stop 02/09/19 at 16:44; Status DC Acetaminophen (Tylenol) 650 mg 1X ONCE PEG Last administered on 02/09/19at 22: 40; Start 02/09/19 at 22:45; Stop 02/09/19 at 22:46; Status DC Vancomycin HCl (Vanco Per Pharmacy) 1 each PRN DAILY PRN MC SEE COMMENTS Last administered on 02/10/19at 13:52; Start 02/10/19 at 10:30 Cefepime HCl (Maxipime) 2 gm Q8HRS IVP Last administered on 02/11/19at 05:33; Start 02/10/19 at 11:00 Acyclovir Sodium 820 mg/Dextrose 116.4 ml @ 116.4 mls/ hr Q8HRS IV Last administered on 02/11/19at 05:34; Start 02/10/19 at 12:00 Vancomycin HCl 2 gm/Sodium Chloride 500 ml @ 250 mls/hr 1X ONCE IV Last administered on 02/10/19at 11:23; Start 02/10/19 at 11:00; Stop 02/10/19 at 12:59 ; Status DC Vancomycin HCl 1.5 gm/Sodium Chloride 500 ml @ 250 mls/hr Q12H IV Last administered on 02/11/19at 00:01; Start 02/10/19 at 23:00 Vancomycin HCl (Vancomycin Trough Level) 1 each 1X ONCE MC ; Start 02/11/19 at 22:30; Stop 02/11/19 at 22:31 Acetaminophen (Tylenol) 650 mg PRN Q6HRS PRN NG MILD PAIN / TEMP Last administered on 02/10/19at 17:31; Start 02/10/19 at 17:00 Active Scripts Active Unasyn 3 Gm Vial (Ampicillin Sodium/Sulbactam Na) 3 Gm Vial 2 Gm IV Q4HRS 45 Days Colace (Docusate Sodium) 100 Mg Capsule 100 Mg PO BID 30 Days Metoprolol Tartrate 25 Mg Tablet 25 Mg PO BID Reported Ambien (Zolpidem Tartrate) 10 Mg Tablet 10 Mg PO PRN QHS PRN Ibuprofen 600 Mg Tablet 600 Mg PO PRN Q6HRS PRN Dulcolax (Bisacodyl) 5 Mg Tablet.dr 10 Mg PO PRN DAILY PRN Mucinex Dm Er 600-30 Mg Tablet (Guaifenesin/Dextromethorphan) 1 Each Tab.er.12h 1 Tab PO BID FENTANYL 100mcg/hr (Fentanyl) 1 Each Patch.td72 1 Patch TD Q48H Gabapentin 600 Mg Tablet 600 Mg PO TID Oxycodone Hcl 5 Mg Capsule 30 Mg PO Q4HRS PRN Hydrochlorothiazide Capsule (Hydrochlorothiazide) 12.5 Mg Capsule 25 Mg PO DAILY Proair Hfa Inhaler (Albuterol Sulfate) 8.5 Gm Hfa.aer.ad 2 Puff INH PRN Q6HRS PRN Albuterol Sulfate Neb Soln (Albuterol Sulfate) 2.5 Mg/3 Ml Vial.neb 2.5 Mg NEB PRN Q4-6HRS PRN Ipratropium Winigan 0.2 Mg/1 Ml Solution 0.2 Mg IH PRN Q4-6HRS PRN Zoloft (Sertraline Hcl) 100 Mg Tablet 1 Tab PO DAILY Robaxin (Methocarbamol) 500 Mg Tablet 750 Mg PO Q8HRS PRN Azelastine Hcl 6 Ml Drops 1 Drop EACHEYE PRN DAILY PRN Lisinopril 10 Mg Tablet 10 Mg PO DAILY Lasix (Furosemide) 20 Mg Tablet 20 Mg PO DAILY Tamsulosin Hcl 0.4 Mg Cap.er.24h 0.4 Mg PO DAILY Montelukast Sodium Tablet (Montelukast Sodium) 10 Mg Tablet 10 Mg PO HS Omeprazole 20 Mg Capsule.dr 20 Mg PO DAILY Topiramate 50 Mg Tablet 1 Tab PO BID Daliresp (Roflumilast) 500 Mcg Tablet 500 Mcg PO DAILY Vitals/I & O Vital Sign - Last 24 Hours 02/10/19 02/10/19 02/10/19 02/10/19 09:39 10:00 10:24 11:00 Pulse 106 114 100 Resp 23 B/P (MAP) 135/99 (111) 157/103 (121) Pulse Ox 95 95 89 O2 Delivery Ventilator Ventilator Ventilator 02/10/19 02/10/19 02/10/19 02/10/19 11:30 12:00 12:00 13:00 Temp 98.9 98.9 Pulse 116 110 Resp 20 24 B/P (MAP) 140/81 (100) 127/74 (91) Pulse Ox 95 96 90 O2 Delivery Ventilator Mechanical Ventilator Ventilator Ventilator 02/10/19 02/10/19 02/10/19 02/10/19 13:37 14:00 14:47 15:00 Pulse 126 112 Resp 18 23 23 B/P (MAP) 139/81 (100) 153/105 (121) Pulse Ox 96 92 96 93 O2 Delivery Ventilator Ventilator Ventilator Ventilator 02/10/19 02/10/19 02/10/19 02/10/19 15:36 16:00 16:00 16:45 Temp 100.3 100.3 Pulse 102 Resp 23 B/P (MAP) 156/95 (115) Pulse Ox 95 100 96 O2 Delivery Ventilator Ventilator Mechanical Ventilator Ventilator 02/10/19 02/10/19 02/10/1919 17:00 18:00 19:00 20:00 Pulse 102 118 118 Resp B/P (MAP) 153/93 (113) 124/68 (86) 155/92 (113) Pulse Ox 100 100 100 O2 Delivery Ventilator Ventilator Ventilator Mechanical Ventilator 02/10/19 02/10/19 02/10/19 02/10/19 20:00 20:15 20:20 20:21 Temp 100.4 100.4 Pulse 120 Resp 23 B/P (MAP) 135/58 (83) Pulse Ox 100 100 96 96 O2 Delivery Ventilator Ventilator Ventilator Ventilator 02/10/19 02/10/19 02/10/19 02/10/19 21:00 21:05 21:35 22:00 Pulse 114 125 Resp 18 B/P (MAP) 143/87 (105) 79/52 (61) Pulse Ox 100 96 96 100 O2 Delivery Ventilator Ventilator Ventilator Ventilator O2 Flow Rate 3.0 02/10/19 02/10/19 02/10/19 02/11/19 23:00 23:12 23:59 00:01 Temp 100.8 100.8 Pulse 104 101 Resp B/P (MAP) 140/80 (100) 124/67 (86) Pulse Ox 100 96 100 O2 Delivery Ventilator Ventilator Mechanical Ventilator Ventilator 02/11/19 02/11/19 02/11/19 02/11/19 01:00 01:00 02:00 02:45 Pulse 93 87 Resp B/P (MAP) 110/63 (79) 111/63 (79) Pulse Ox 100 100 100 100 O2 Delivery Ventilator Ventilator Ventilator Ventilator 02/11/19 02/11/19 02/11/19 02/11/19 03:00 04:00 04:00 05:00 Temp 99.8 99.8 Pulse 86 81 90 Resp 21 21 B/P (MAP) 121/66 (84) 120/68 (85) 135/68 (90) Pulse Ox 100 100 100 O2 Delivery Ventilator Mechanical Ventilator Ventilator Ventilator 02/11/19 02/11/19 02/11/19 02/11/19 05:20 05:30 06:00 06:45 Pulse 97 Resp 18 B/P (MAP) 156/88 (110) Pulse Ox 100 100 97 97 O2 Delivery Ventilator Ventilator Ventilator O2 Flow Rate 3.0 02/11/19 02/11/19 08:19 08:23 Pulse 95 Pulse Ox 100 O2 Delivery Ventilator Intake and Output 02/10/19 02/10/19 02/11/19 14:59 22:59 06:59 Intake Total 821.4 ml 977 ml 1960.3 ml Output Total 575 ml 800 ml 385 ml Balance 246.4 ml 177 ml 1575.3 ml CISCO DE SOUZA MD Feb 11, 2019 09:03
--- NOTE | 2019-02-11 09:09 | RAD ---
Indication:VENTILATOR; RESP DISTRESS TECHNIQUE:Portable AP chest X-ray COMPARISON:02/10/2019 FINDINGS: ET and NG tube tube is in appropriate location. Heart is normal in size. Bilateral lower lobe consolidations are seen. No pneumothorax. Right-sided PICC line with its tip in the SVC. Visualized bony thorax within normal limits. IMPRESSION: Consolidation of the bilateral lower lobes may be secondary to atelectasis or pneumonia. Underlying bilateral small pleural effusions not ruled out. Electronically signed by: Lc Begum DO (02/11/2019 9:06 AM) [facility]
--- NOTE | 2019-02-11 12:04 | PDOC ---
PULMONARY PROGRESS NOTES Subjective extubated 02/06, re-intubated 02/08 on versed/ fentanyl/ low grade fever Vitals Vital Signs Date Time Temp Pulse Resp B/P (MAP) Pulse Ox O2 Delivery O2 Flow Rate FiO2 02/11/19 09:18 100 Ventilator 02/11/19 08:23 95 02/11/19 06:45 3.0 02/11/19 06:00 21 156/88 (110) 02/11/19 04:00 99.8 99.8 Comments r Lungs: Other (decrease bases) Cardiovascular: S1, Other Abdomen: Soft, Non-tender Extremities: Other (trace edema) Skin: Cool (feet) Labs Laboratory Tests Test 02/09/19 16:30 02/10/19 04:50 02/10/19 05:30 02/10/19 08:20 Erythrocyte Sedimentation Rate 76 (0-15) White Blood Count 9.5 x10^3/uL (4.0-11.0) Red Blood Count 3.27 x10^6/uL (4.30-5.70) Hemoglobin 10.1 g/dL (13.0-17.5) Hematocrit 31.0 % (39.0-53.0) Mean Corpuscular Volume 95 fL (79-100) Mean Corpuscular Hemoglobin 31 pg (25-35) Mean Corpuscular Hemoglobin Concent 33 g/dL (31-37) Red Cell Distribution Width 14.4 % (11.5-14.5) Platelet Count 304 x10^3/uL (140-400) Neutrophils (%) (Auto) 71 % (31-73) Lymphocytes (%) (Auto) 10 % (24-48) Monocytes (%) (Auto) 14 % (0-9) Eosinophils (%) (Auto) 4 % (0-3) Basophils (%) (Auto) 1 % (0-3) Neutrophils # (Auto) 6.8 x10^3uL (1.8-7.7) Lymphocytes # (Auto) 0.9 x10^3/uL (1.0-4.8) Monocytes # (Auto) 1.4 x10^3/uL (0.0-1.1) Eosinophils # (Auto) 0.4 x10^3/uL (0.0-0.7) Basophils # (Auto) 0.1 x10^3/uL (0.0-0.2) Sodium Level 147 mmol/L (136-145) Potassium Level 3.8 mmol/L (3.5-5.1) Chloride Level 108 mmol/L (98-107) Carbon Dioxide Level 30 mmol/L (21-32) Anion Gap 9 (6-14) Blood Urea Nitrogen 11 mg/dL (8-26) Creatinine 0.6 mg/dL (0.7-1.3) Estimated GFR (Cockcroft-Gault) 137.4 BUN/Creatinine Ratio 18 (6-20) Glucose Level 104 mg/dL (70-99) Calcium Level 8.7 mg/dL (8.5-10.1) Total Bilirubin 0.6 mg/dL (0.2-1.0) Aspartate Amino Transf (AST/SGOT) 52 U/L (15-37) Alanine Aminotransferase (ALT/SGPT) 475 U/L (16-63) Alkaline Phosphatase 105 U/L (46-116) Total Protein 5.9 g/dL (6.4-8.2) Albumin 2.5 g/dL (3.4-5.0) Albumin/Globulin Ratio 0.7 (1.0-1.7) Triglycerides Level 112 mg/dL (0-150) O2 Saturation 93 % (92-99) Arterial Blood pH 7.37 (7.35-7.45) Arterial Blood pCO2 at Patient Temp 50 mmHg (35-46) Arterial Blood pO2 at Patient Temp 74 mmHg (65-108) Arterial Blood HCO3 28 mmol/L (21-28) Arterial Blood Base Excess 2 mmol/L (-3-3) FiO2 vent 60% Test 02/11/19 05:30 02/11/19 08:30 White Blood Count 9.5 x10^3/uL (4.0-11.0) Red Blood Count 3.17 x10^6/uL (4.30-5.70) Hemoglobin 9.7 g/dL (13.0-17.5) Hematocrit 30.0 % (39.0-53.0) Mean Corpuscular Volume 95 fL (79-100) Mean Corpuscular Hemoglobin 31 pg (25-35) Mean Corpuscular Hemoglobin Concent 32 g/dL (31-37) Red Cell Distribution Width 14.2 % (11.5-14.5) Platelet Count 312 x10^3/uL (140-400) Neutrophils (%) (Auto) 69 % (31-73) Lymphocytes (%) (Auto) 9 % (24-48) Monocytes (%) (Auto) 13 % (0-9) Eosinophils (%) (Auto) 9 % (0-3) Basophils (%) (Auto) 1 % (0-3) Neutrophils # (Auto) 6.5 x10^3uL (1.8-7.7) Lymphocytes # (Auto) 0.9 x10^3/uL (1.0-4.8) Monocytes # (Auto) 1.3 x10^3/uL (0.0-1.1) Eosinophils # (Auto) 0.8 x10^3/uL (0.0-0.7) Basophils # (Auto) 0.0 x10^3/uL (0.0-0.2) Creatinine 0.6 mg/dL (0.7-1.3) Estimated GFR (Cockcroft-Gault) 137.4 O2 Saturation 94 % (92-99) Arterial Blood pH 7.42 (7.35-7.45) Arterial Blood pCO2 at Patient Temp 47 mmHg (35-46) Arterial Blood pO2 at Patient Temp 74 mmHg (65-108) Arterial Blood HCO3 30 mmol/L (21-28) Arterial Blood Base Excess 4 mmol/L (-3-3) FiO2 60 Laboratory Tests Test 02/11/19 05:30 02/11/19 08:30 White Blood Count 9.5 x10^3/uL (4.0-11.0) Red Blood Count 3.17 x10^6/uL (4.30-5.70) Hemoglobin 9.7 g/dL (13.0-17.5) Hematocrit 30.0 % (39.0-53.0) Mean Corpuscular Volume 95 fL (79-100) Mean Corpuscular Hemoglobin 31 pg (25-35) Mean Corpuscular Hemoglobin Concent 32 g/dL (31-37) Red Cell Distribution Width 14.2 % (11.5-14.5) Platelet Count 312 x10^3/uL (140-400) Neutrophils (%) (Auto) 69 % (31-73) Lymphocytes (%) (Auto) 9 % (24-48) Monocytes (%) (Auto) 13 % (0-9) Eosinophils (%) (Auto) 9 % (0-3) Basophils (%) (Auto) 1 % (0-3) Neutrophils # (Auto) 6.5 x10^3uL (1.8-7.7) Lymphocytes # (Auto) 0.9 x10^3/uL (1.0-4.8) Monocytes # (Auto) 1.3 x10^3/uL (0.0-1.1) Eosinophils # (Auto) 0.8 x10^3/uL (0.0-0.7) Basophils # (Auto) 0.0 x10^3/uL (0.0-0.2) Creatinine 0.6 mg/dL (0.7-1.3) Estimated GFR (Cockcroft-Gault) 137.4 O2 Saturation 94 % (92-99) Arterial Blood pH 7.42 (7.35-7.45) Arterial Blood pCO2 at Patient Temp 47 mmHg (35-46) Arterial Blood pO2 at Patient Temp 74 mmHg (65-108) Arterial Blood HCO3 30 mmol/L (21-28) Arterial Blood Base Excess 4 mmol/L (-3-3) FiO2 60 Medications Active Scripts Medications Dose Route/Sig Max Daily Dose Days Date Category Unasyn 3 Gm Vial (Ampicillin Sodium/Sulbactam Na) 3 Gm Vial 2 Gm IV Q4HRS 45 01/05/19 Rx Oxycodone Hcl Immed.release (Oxycodone Hcl) 5 Mg Tablet 10 Mg PO PRN Q4HRS PRN 01/04/19 Rx Oxycontin (Oxycodone HCl) 15 Mg Tab.er.12h 15 Mg PO Q12HR 01/04/19 Rx Colace (Docusate Sodium) 100 Mg Capsule 100 Mg PO BID 30 12/09/18 Rx Hydrochlorothiazide Capsule (Hydrochlorothiazide) 12.5 Mg Capsule 25 Mg PO DAILY 11/29/18 Reported Proair Hfa Inhaler (Albuterol Sulfate) 8.5 Gm Hfa.aer.ad 2 Puff INH PRN Q6HRS PRN 11/29/18 Reported Albuterol Sulfate Neb Soln (Albuterol Sulfate) 2.5 Mg/3 Ml Vial.neb 2.5 Mg NEB PRN Q4-6HRS PRN 11/29/18 Reported Ipratropium [place] 0.2 Mg/1 Ml Solution 0.2 Mg IH PRN Q4-6HRS PRN 11/29/18 Reported Zoloft (Sertraline Hcl) 100 Mg Tablet 1 Tab PO DAILY 11/04/18 Reported Robaxin (Methocarbamol) 500 Mg Tablet 500 Mg PO QID PRN 11/04/18 Reported Azelastine Hcl 6 Ml Drops 1 Drop EACHEYE PRN DAILY PRN 11/04/18 Reported Lisinopril 10 Mg Tablet 10 Mg PO DAILY 08/12/17 Reported Lasix (Furosemide) 20 Mg Tablet 20 Mg PO DAILY 08/12/17 Reported Tamsulosin Hcl 0.4 Mg Cap.er.24h 0.4 Mg PO DAILY 08/12/17 Reported Montelukast Sodium Tablet (Montelukast Sodium) 10 Mg Tablet 10 Mg PO HS 08/12/17 Reported Metoprolol Tartrate 25 Mg Tablet 25 Mg PO BID 07/11/16 Rx Omeprazole 20 Mg Capsule.dr 20 Mg PO DAILY 07/09/16 Reported Topiramate 50 Mg Tablet 1 Tab PO BID 07/09/16 Reported Daliresp (Roflumilast) 500 Mcg Tablet 500 Mcg PO DAILY 07/09/16 Reported Comments reviewed cxr, 02/11 bibasilar atelectasis Impression . 1. Acute respiratory failure, multifactorial in etiology. Re- Intubated 02/08 2. Persistent encephalopathy/ low grade fever, requiring sedation.? 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 Could not do LP. 3. Acute kidney injury. Electrolyte abnormality. improving 4. Elevated troponin, non-ST elevation myocardial infarction. 5. Atrial fibrillation with rapid ventricular response, now rate controlled. 6. Hyperkalemia. resolved 7. Status post back surgery, epidural abscess, incision and drainage, on antibiotic. no extension to brain. 8. Chronic obstructive pulmonary disease. 9. Acute diastolic congestive heart failure. 10. sepsis, ? aspiration, s/p Bronch. no purulent secretions, cultures neg 11. Obstructive sleep apnea-hypopnea syndrome. 12. elevated LFTs improving/ shock liver, improving Plan . 1. AC mode / wean PEEP / FIO2 2. watch resp status closely/ wean off versed/ use propofol/ fentanyl an dif MS improves, wean off both. 3. bronchodilator. 4. Bronch done , cultures Neg 5. Pepcid for stress ulcer prophylaxis. 6. Monitor renal function 7. d/w DR Herring. May benefit from LP but cannot be done due to recent spinal surgery. Abx broaden to cover any WHITE SHOE EXAMINER infection 8. abx per id 9. Cardiology rec discussed with RN/ FOREIGN GOODE MD Feb 11, 2019 12:04
[2019-02-11] MEDS: ASPIRIN RECTAL 300 MG SUPP. PR SCH (12:06)
--- NOTE | 2019-02-11 13:35 | PDOC ---
Provider Note Provider Note S Remains sedated. No new cardiac issues. Afib rate controlled O: VSS, HR 85, BP 155/77 Minimally responsive IRregular heart tones Trace LE edema. Normal anterior lung sounds Labs reviewed. hgb, cr stable. Meds reviewed. Impression: 1. Diastolic HF 2. Elevated troponin due to stress 3. HTN 4. Persistent afib. Plan 1. Stop IV Dig, use prn 2. Start Metoprolol 25mg p.o q 6 hours 3. ASA 325mg daily, consider anticoagulation upon DC Supportive care. TONIO KIM MD Feb 11, 2019 13:35
[2019-02-11] MEDS: VANCOMYCIN PER PHARMACY MC PRN ×2 (13:44→23:59)
--- NOTE | 2019-02-11 16:23 | PDOC ---
ICU PROGRESS NOTES Subjective He remains orally intubated, still sedated but medication changed, LP not able to be done and not needed per Neurosurgery Objective Objective sedated, intubated lungs clear anteriorly, no JVD quality assurance monitor final - afib abd obese but soft, active bowel sounds present feet warm Stratton in place with adequate output Vitals Vital Signs Date Time Temp Pulse Resp B/P (MAP) Pulse Ox O2 Delivery O2 Flow Rate FiO2 02/11/19 16:08 100 Ventilator 02/11/19 13:00 102 25 149/84 (105) 02/11/19 12:00 98.4 98.4 02/11/19 06:45 3.0 Input & Output Intake and Output 02/11/19 06:59 Intake Total 3758.7 ml Output Total 1760 ml Balance 1998.7 ml IV Total 1957.7 ml Tube Feeding 1551 ml Other 250 ml Output Urine Total 1760 ml Ventilator Settings O2 Flow Rate: 3.0 Oxygen Delivery Device: Ventilator O2 Humdified: HME Temperature (97-99 F): Yes FiO2: 55 SpO2: 100 DVT Prophylaxis DVT Prophylaxis yes, heparin Stress Ulcer Prophylaxis Stress Ulcer Prophylaxis yes Imaging Imaging Single view of the chest. 02/10/2019 5:00 AM Indication: Endotracheal tube placement Comparison: Chest radiograph, yesterday FINDINGS: Endotracheal tube remains in place with tip approximately 4.5 cm above the pauline. There is an enteric tube extending below the diaphragm. There is a right upper extremity PICC line, the tip of which is somewhat poorly visualized. The tip appears to be in expected position. Moderate bilateral pleural effusions are grossly similar. No pneumothorax is seen. Diffuse interstitial coarsening is stable. No acute osseous changes are noted in the interim. IMPRESSION: 1. Stable support lines and tubes 2. Diffuse interstitial thickening and moderate pleural effusions, similar to prior exam TECHNIQUE:Portable AP chest X-ray COMPARISON:02/08/2019 FINDINGS: ET tube is seen approximately 3.2 cm from the level of pauline and is in appropriate position. NG tube is seen with its tip in the stomach. Heart is mildly enlarged in size. Silhouetting of the bilateral hemidiaphragms with consolidations in the lung bases and blunting of the bilateral costophrenic angles. Prominent bronchial markings are seen in the upper lobes. No pneumothorax. Right-sided PICC line is seen with its tip in the right brachiocephalic trunk IMPRESSION: 1. Bilateral lower lobe consolidations may be secondary to atelectasis or pneumonia. 2. Bilateral small pleural effusions. MRI L-spine: FINDINGS: Comparison study is dated 12/29/2018. Mild S-shaped curvature of the thoracolumbar spine is seen. Degenerative signal changes are seen involving all of the disks of the lumbar spine. Degenerative signal changes are seen within the marrow surrounding these discs. A subacute compression fracture of the superior endplate of the T12 vertebral body is again seen. No retropulsion of bone fragments into the central spinal canal is noted. The conus medullaris is normal morphology, position, and signal characteristics. Increased signal intensity is seen on the T2-weighted images involving the L4-5 disc. Increased signal intensity is seen within the marrow surrounding this disc on the T2-weighted and inversion recovery images. This demonstrates decreased signal intensity on the T1-weighted images and varying degrees of enhancement. These findings have increased since the previous examination. They are concerning for discitis/osteomyelitis. Clinical correlation is recommended. The patient is post left hemilaminectomy at L4-5. The fluid collections within the laminectomy site seen on the previous examination have resolved. Increased soft tissue intensity is seen is seen within the anterior epidural space extending to the left of midline into the left neural foramen at this level which enhances with contrast. This could represent epidural scarring versus epidural phlegmon. The changes of degenerative disc disease are seen throughout the lumbar spine. These consist of mild to moderate generalized disc bulges. Degenerative changes involving the facet joints and mild to moderate ligamentum flavum hypertrophy along with prominence of posterior epidural fat. These findings result in mild central spinal canal stenosis at L2-3 and mild to moderate central spinal canal stenosis at L3-4 mild right neural foraminal stenosis is seen at L3-4. Moderate left neural foraminal stenosis is seen at L4-5. IMPRESSION: Findings are seen concerning for discitis/osteomyelitis at L4-5 as outlined above. Clinical correlation is recommended. Medications Medications Current Medications Acetaminophen (Tylenol) 650 mg PRN Q6HRS PRN NG MILD PAIN / TEMP Last administered on 02/10/19at 17:31; Start 02/10/19 at 17:00 Aspirin (Chase Aspirin) 325 mg DAILYWBKFT PO ; Start 02/12/19 at 08:00 Metoprolol Tartrate (Lopressor) 25 mg Q6HRS PO ; Start 02/11/19 at 18:00 Vancomycin HCl (Vancomycin Trough Level) 1 each 1X ONCE MC ; Start 02/11/19 at 22:30; Stop 02/11/19 at 22:31 Vancomycin HCl 1.5 gm/Sodium Chloride 500 ml @ 250 mls/hr Q12H IV Last administered on 02/11/19at 12:03; Start 02/10/19 at 23:00 Physical Exam Lungs: Other (decrease bases) Cardiovascular: S1, Other Abdomen: Soft, Non-tender Extremities: Other (trace edema) Skin: Cool (feet) Impression . 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 Boyd acute flare of lumbar back pain last week without injury requiring an increase in pain meds for control - MRI L-spine obesity ADILENE hx of alcoholism - I am unaware of him drinking alcohol while at [facility] and admission alcohol level was undetectable anemia - stable AL - he was taking unprescribed NSAIDS, osteoBiflex gummies from home at [facility] for pain Afib/RVR - rate controlled constipation per [facility] imaging Roseann JAY MD Feb 11, 2019 16:23
[2019-02-11] MEDS: METOPROLOL TART IMMED RELEASE 25 MG TABLET. PO SCH (16:39)
[2019-02-11] MEDS: ENOXAPARIN 40 MG/0.4 ML SYRINGE. SQ SCH (16:39)
[2019-02-12] VITALS (22 sets, daily range): BP systolic 119–170; BP diastolic 64–90
[2019-02-12] MEDS: VANCOMYCIN 1.75 GM in IV NORMAL SALINE 500ML BAG 500 ML IV SCH ×3 (00:01→23:25)
[2019-02-12] MEDS: METOPROLOL TART IMMED RELEASE 25 MG TABLET. PO SCH ×5 (00:09→23:26)
[2019-02-12] MEDS: PROPOFOL 100 ML IV PRN ×4 (04:27→23:24)
[2019-02-12] MEDS: ACYCLOVIR SODIUM IV SCH ×3 (05:54→21:50)
[2019-02-12] MEDS: DEXTROSE 5% IV SCH ×3 (05:54→21:50)
[2019-02-12] MEDS: CEFEPIME HCL IV Push 2 GM VIAL. IVP SCH ×3 (05:55→21:50)
[2019-02-12 06:23] LABS: BASO # 0.1 x10^3/uL (0.0-0.2); BASO % 1 % (0-3); EOS # 1.1 x10^3/uL (0.0-0.7); EOS % 11 % (0-3); HEMATOCRIT 29.4 % (39.0-53.0); HEMOGLOBIN 9.7 g/dL (13.0-17.5); LYMPH % 10 % (24-48); MEAN CORPUSCULAR HEMOGLOBIN 31 pg (25-35); MEAN CORPUSCULAR HGB CONC 33 g/dL (31-37); MEAN CORPUSCULAR VOLUME 93 fL (79-100); MONO # 1.4 x10^3/uL (0.0-1.1); MONO % 15 % (0-9); NEUT # 6.1 x10^3uL (1.8-7.7); NEUT % 64 % (31-73); PLATELET COUNT 333 x10^3/uL (140-400); RED BLOOD COUNT 3.16 x10^6/uL (4.30-5.70); RED CELL DISTRIBUTION WIDTH 14.2 % (11.5-14.5); WHITE BLOOD COUNT 9.7 x10^3/uL (4.0-11.0)
[2019-02-12 06:43] LABS: ALBUMIN 2.2 g/dL (3.4-5.0); ALBUMIN/GLOBULIN RATIO 0.6 (1.0-1.7); CALCIUM 8.8 mg/dL (8.5-10.1); CREATININE 0.5 mg/dL (0.7-1.3); GFR 169.6; POTASSIUM 3.4 mmol/L (3.5-5.1); TOTAL BILIRUBIN 0.4 mg/dL (0.2-1.0); TOTAL PROTEIN 6.2 g/dL (6.4-8.2)
--- NOTE | 2019-02-12 07:56 | RAD ---
CHEST AP ONLY History: Endotracheal tube Comparison: February 11, 2019; February 09, 2019 Findings: 2 AP views of the chest are submitted. There is endotracheal tube with tip about 6 cm from pauline. Enteric catheter courses into stomach. There are again small bilateral pleural effusions with adjacent bibasilar airspace opacity. Findings are similar compared with most recent exam, somewhat improved aeration of the lung bases greater on the right comparing with February 09, 2018 exam. Pericardial cardiac silhouette is again enlarged. There is a right upper extremity PICC, tip in region of superior vena cava. Mild perihilar opacity is similar. Impression: 1. There are again small bilateral pleural effusions with bibasilar airspace infiltrates/atelectasis, somewhat improved aeration of the lung bases compared with February 09, 2019 exam. Electronically signed by: Krishna Orourke MD (02/12/2019 7:53 AM) [facility]
[2019-02-12] MEDS: IPRATRPIUM/ALBUTEROL 0.5/2.5MG 3 ML NEBU. NEB SCH ×4 (08:12→19:31)
[2019-02-12] MEDS: BUDESONIDE 0.5 MG/2 ML NEBU. NEB SCH ×2 (08:13→19:31)
[2019-02-12] MEDS: ASPIRIN 325 MG TABLET PO SCH (08:20)
[2019-02-12] MEDS: FAMOTIDINE 20 MG/2 ML VIAL IVP SCH ×2 (08:21→20:20)
[2019-02-12] MEDS: NICOTINE 21MG PATCH. TD SCH (08:21)
[2019-02-12] MEDS: levETIRAcetam 500 MG in IV DEXTROSE 5% 100ML 100 ML IV SCH ×2 (08:22→20:20)
[2019-02-12] MEDS: ACETAMINOPHEN 650 MG/20.3 ML SOLUTION. NG PRN (08:23)
[2019-02-12 08:37] LABS: BASE EXCESS ABG 4 mmol/L (-3-3); HCO3 ABG 28 mmol/L (21-28); PCO2 ABG 43 mmHg (35-46); PO2 ABG 83 mmHg (65-108); SAT O2 ABG 95 % (92-99)
[2019-02-12 08:40] LABS: FIO2 ABG 55
[2019-02-12 09:10] LABS: % BANDS 5 % (0-9); % EOS 14 % (0-5); % LYMPHS 8 % (24-48); % MONOS 11 % (0-10); % SEGS 62 % (35-66); PLT ESTIMATE ADEQUATE (ADEQUATE)
--- NOTE | 2019-02-12 09:51 | PDOC ---
Infectious Disease Note Subjective Subjective Remains sedated and intubated,,FiO2 55% Fever Tmax 101.4 Daughter present,,tearful,,encouraging father not to give up ROS ROS unobtainable as patient is noncommunicative Vital Sign Vital Signs Vital Signs Date Time Temp Pulse Resp B/P (MAP) Pulse Ox O2 Delivery O2 Flow Rate FiO2 02/12/19 08:00 Mechanical Ventilator 02/12/19 08:00 100.9 112 30 170/80 (110) 100 100.9 02/12/19 01:36 3.0 Physical Exam PHYSICAL EXAM GENERAL: Sedated and intubated, upward gaze, not tracking HEENT: Pupils equal, ETT and OGT in place. LUNGS: Diminished aeration. HEART: S1 and S2. ABDOMEN: Obese, soft. No grimace or guarding to palpation, with bowel sounds present. GENITOURINARY: Stratton in place. EXTREMITIES: Generalized trace edema,,No cyanosis. SKIN: Warm, without rash. NEUROLOGIC: sedated on vent RUE-PICC (POA) no redness, + arm swelling Labs Lab Laboratory Tests Test 02/11/19 22:45 02/11/19 23:06 02/11/19 23:08 02/12/19 06:00 Vancomycin Level Trough 10.0 mcg/mL (10.0-20.0) Vancomycin Last Dose Date 02/11/19 Vancomycin Last Dose Time 1100 Glucose (Fingerstick) 103 mg/dL (70-99) 92 mg/dL (70-99) White Blood Count 9.7 x10^3/uL (4.0-11.0) Red Blood Count 3.16 x10^6/uL (4.30-5.70) Hemoglobin 9.7 g/dL (13.0-17.5) Hematocrit 29.4 % (39.0-53.0) Mean Corpuscular Volume 93 fL (79-100) Mean Corpuscular Hemoglobin 31 pg (25-35) Mean Corpuscular Hemoglobin Concent 33 g/dL (31-37) Red Cell Distribution Width 14.2 % (11.5-14.5) Platelet Count 333 x10^3/uL (140-400) Neutrophils (%) (Auto) 64 % (31-73) Lymphocytes (%) (Auto) 10 % (24-48) Monocytes (%) (Auto) 15 % (0-9) Eosinophils (%) (Auto) 11 % (0-3) Basophils (%) (Auto) 1 % (0-3) Neutrophils # (Auto) 6.1 x10^3uL (1.8-7.7) Lymphocytes # (Auto) 1.0 x10^3/uL (1.0-4.8) Monocytes # (Auto) 1.4 x10^3/uL (0.0-1.1) Eosinophils # (Auto) 1.1 x10^3/uL (0.0-0.7) Basophils # (Auto) 0.1 x10^3/uL (0.0-0.2) Segmented Neutrophils % 62 % (35-66) Band Neutrophils % 5 % (0-9) Lymphocytes % 8 % (24-48) Monocytes % 11 % (0-10) Eosinophils % 14 % (0-5) Platelet Estimate Adequate (ADEQUATE) Sodium Level 143 mmol/L (136-145) Potassium Level 3.4 mmol/L (3.5-5.1) Chloride Level 106 mmol/L (98-107) Carbon Dioxide Level 31 mmol/L (21-32) Anion Gap 6 (6-14) Blood Urea Nitrogen 11 mg/dL (8-26) Creatinine 0.5 mg/dL (0.7-1.3) Estimated GFR (Cockcroft-Gault) 169.6 BUN/Creatinine Ratio 22 (6-20) Glucose Level 108 mg/dL (70-99) Calcium Level 8.8 mg/dL (8.5-10.1) Total Bilirubin 0.4 mg/dL (0.2-1.0) Aspartate Amino Transf (AST/SGOT) 28 U/L (15-37) Alanine Aminotransferase (ALT/SGPT) 225 U/L (16-63) Alkaline Phosphatase 103 U/L (46-116) Total Protein 6.2 g/dL (6.4-8.2) Albumin 2.2 g/dL (3.4-5.0) Albumin/Globulin Ratio 0.6 (1.0-1.7) Procalcitonin 0.11 ng/mL (0.00-0.10) Test 02/12/19 08:00 O2 Saturation 95 % (92-99) Arterial Blood pH 7.43 (7.35-7.45) Arterial Blood pCO2 at Patient Temp 43 mmHg (35-46) Arterial Blood pO2 at Patient Temp 83 mmHg (65-108) Arterial Blood HCO3 28 mmol/L (21-28) Arterial Blood Base Excess 4 mmol/L (-3-3) FiO2 55 Lumbar MRI Findings are seen concerning for discitis/osteomyelitis at L4-5 as outlined above. Clinical correlation is recommended. Micro Microbiology 02/04/19 Blood Culture - Preliminary, Resulted NO GROWTH AFTER 1 DAY Objective Assessment Sepsis with hypotension, POA, ?? likely had dehydration and too much pain meds. off pressers. Procalcitonin 0.11 Fever,,,? line infection Suspect aspiration Postsurgical spine infection with epidural abscess, s/p I and D on 12/30/18. ENTEROCOCCUS ampS,,,was undergoing TX with ampicillin at [facility]. Completed 6 weeks treatment on 02/10. -Original back surgery was done on 12/09/2018. (microdiscectomy with decompression of the left L4 and L5 nerve roots). -recent ESR up to 76 -Lumbar spine MRI on 02/08 concerning for discitis/osteo at L4-5 Acute respiratory failure s/p re-intubation,,02/08 electively for MRI. s/p bronchoscopy 02/09. cultures no growth Acute encephalopathy NSTEMI AL,,,improved Shock liver Myoclonic movements, on Keppra Hypertension. Atrial fibrillation. Obstructive sleep apnea. Morbid obesity. Chronic obstructive pulmonary disease. RUE swelling. US showed a 7.6 x 1.5 x 2.1 cm heterogeneous echogenicity identified lateral to the axillary the region in the soft tissue , Plan Plan of Care Continue vanc, cefepime, acyclovir (abx changed on 02/10) Previously on Zosyn,,,ampicillin Trough 10.0 Cultures NGTD Monitor labs/VS/temp Supportive care MRI lumbar noted, this is expected finding do not believe recent spine infection is playing any role in current illness LP pending PICC may need to be removed,,,BC x 2 d/w daughter d/w nursing Patient seen, examined, I agree with above. Assessment and plan was coformulated with DYE COLORIST DYER will dc picc line, send cath tip for c/s Repeat RUE .venous U/S and f/u fluid collection SOPHY RIDER APRN Feb 12, 2019 09:51 ASHLEY JONES MD Feb 12, 2019 15:03
--- NOTE | 2019-02-12 12:10 | PDOC ---
PULMONARY PROGRESS NOTES Subjective extubated 02/06, re-intubated 02/08 continues to have fever AC mode, does not follow commands while off sedation Vitals Vital Signs Date Time Temp Pulse Resp B/P (MAP) Pulse Ox O2 Delivery O2 Flow Rate FiO2 02/12/19 11:00 100 25 123/75 (91) 100 Ventilator 02/12/19 08:00 100.9 100.9 02/12/19 01:36 3.0 Comments r Lungs: Other (decrease bs) Cardiovascular: S1, Other Abdomen: Soft, Non-tender Extremities: Other (trace edema) Skin: Warm, Cool (feet) Labs Laboratory Tests Test 02/11/19 05:30 02/11/19 08:30 02/11/19 22:45 02/11/19 23:06 White Blood Count 9.5 x10^3/uL (4.0-11.0) Red Blood Count 3.17 x10^6/uL (4.30-5.70) Hemoglobin 9.7 g/dL (13.0-17.5) Hematocrit 30.0 % (39.0-53.0) Mean Corpuscular Volume 95 fL (79-100) Mean Corpuscular Hemoglobin 31 pg (25-35) Mean Corpuscular Hemoglobin Concent 32 g/dL (31-37) Red Cell Distribution Width 14.2 % (11.5-14.5) Platelet Count 312 x10^3/uL (140-400) Neutrophils (%) (Auto) 69 % (31-73) Lymphocytes (%) (Auto) 9 % (24-48) Monocytes (%) (Auto) 13 % (0-9) Eosinophils (%) (Auto) 9 % (0-3) Basophils (%) (Auto) 1 % (0-3) Neutrophils # (Auto) 6.5 x10^3uL (1.8-7.7) Lymphocytes # (Auto) 0.9 x10^3/uL (1.0-4.8) Monocytes # (Auto) 1.3 x10^3/uL (0.0-1.1) Eosinophils # (Auto) 0.8 x10^3/uL (0.0-0.7) Basophils # (Auto) 0.0 x10^3/uL (0.0-0.2) Creatinine 0.6 mg/dL (0.7-1.3) Estimated GFR (Cockcroft-Gault) 137.4 O2 Saturation 94 % (92-99) Arterial Blood pH 7.42 (7.35-7.45) Arterial Blood pCO2 at Patient Temp 47 mmHg (35-46) Arterial Blood pO2 at Patient Temp 74 mmHg (65-108) Arterial Blood HCO3 30 mmol/L (21-28) Arterial Blood Base Excess 4 mmol/L (-3-3) FiO2 60 Vancomycin Level Trough 10.0 mcg/mL (10.0-20.0) Vancomycin Last Dose Date 02/11/19 Vancomycin Last Dose Time 1100 Glucose (Fingerstick) 103 mg/dL (70-99) Test 02/11/19 23:08 02/12/19 06:00 02/12/19 08:00 Glucose (Fingerstick) 92 mg/dL (70-99) White Blood Count 9.7 x10^3/uL (4.0-11.0) Red Blood Count 3.16 x10^6/uL (4.30-5.70) Hemoglobin 9.7 g/dL (13.0-17.5) Hematocrit 29.4 % (39.0-53.0) Mean Corpuscular Volume 93 fL (79-100) Mean Corpuscular Hemoglobin 31 pg (25-35) Mean Corpuscular Hemoglobin Concent 33 g/dL (31-37) Red Cell Distribution Width 14.2 % (11.5-14.5) Platelet Count 333 x10^3/uL (140-400) Neutrophils (%) (Auto) 64 % (31-73) Lymphocytes (%) (Auto) 10 % (24-48) Monocytes (%) (Auto) 15 % (0-9) Eosinophils (%) (Auto) 11 % (0-3) Basophils (%) (Auto) 1 % (0-3) Neutrophils # (Auto) 6.1 x10^3uL (1.8-7.7) Lymphocytes # (Auto) 1.0 x10^3/uL (1.0-4.8) Monocytes # (Auto) 1.4 x10^3/uL (0.0-1.1) Eosinophils # (Auto) 1.1 x10^3/uL (0.0-0.7) Basophils # (Auto) 0.1 x10^3/uL (0.0-0.2) Segmented Neutrophils % 62 % (35-66) Band Neutrophils % 5 % (0-9) Lymphocytes % 8 % (24-48) Monocytes % 11 % (0-10) Eosinophils % 14 % (0-5) Platelet Estimate Adequate (ADEQUATE) Sodium Level 143 mmol/L (136-145) Potassium Level 3.4 mmol/L (3.5-5.1) Chloride Level 106 mmol/L (98-107) Carbon Dioxide Level 31 mmol/L (21-32) Anion Gap 6 (6-14) Blood Urea Nitrogen 11 mg/dL (8-26) Creatinine 0.5 mg/dL (0.7-1.3) Estimated GFR (Cockcroft-Gault) 169.6 BUN/Creatinine Ratio 22 (6-20) Glucose Level 108 mg/dL (70-99) Calcium Level 8.8 mg/dL (8.5-10.1) Total Bilirubin 0.4 mg/dL (0.2-1.0) Aspartate Amino Transf (AST/SGOT) 28 U/L (15-37) Alanine Aminotransferase (ALT/SGPT) 225 U/L (16-63) Alkaline Phosphatase 103 U/L (46-116) Total Protein 6.2 g/dL (6.4-8.2) Albumin 2.2 g/dL (3.4-5.0) Albumin/Globulin Ratio 0.6 (1.0-1.7) Procalcitonin 0.11 ng/mL (0.00-0.10) O2 Saturation 95 % (92-99) Arterial Blood pH 7.43 (7.35-7.45) Arterial Blood pCO2 at Patient Temp 43 mmHg (35-46) Arterial Blood pO2 at Patient Temp 83 mmHg (65-108) Arterial Blood HCO3 28 mmol/L (21-28) Arterial Blood Base Excess 4 mmol/L (-3-3) FiO2 55 Laboratory Tests Test 02/11/19 22:45 02/11/19 23:06 02/11/19 23:08 02/12/19 06:00 Vancomycin Level Trough 10.0 mcg/mL (10.0-20.0) Vancomycin Last Dose Date 02/11/19 Vancomycin Last Dose Time 1100 Glucose (Fingerstick) 103 mg/dL (70-99) 92 mg/dL (70-99) White Blood Count 9.7 x10^3/uL (4.0-11.0) Red Blood Count 3.16 x10^6/uL (4.30-5.70) Hemoglobin 9.7 g/dL (13.0-17.5) Hematocrit 29.4 % (39.0-53.0) Mean Corpuscular Volume 93 fL (79-100) Mean Corpuscular Hemoglobin 31 pg (25-35) Mean Corpuscular Hemoglobin Concent 33 g/dL (31-37) Red Cell Distribution Width 14.2 % (11.5-14.5) Platelet Count 333 x10^3/uL (140-400) Neutrophils (%) (Auto) 64 % (31-73) Lymphocytes (%) (Auto) 10 % (24-48) Monocytes (%) (Auto) 15 % (0-9) Eosinophils (%) (Auto) 11 % (0-3) Basophils (%) (Auto) 1 % (0-3) Neutrophils # (Auto) 6.1 x10^3uL (1.8-7.7) Lymphocytes # (Auto) 1.0 x10^3/uL (1.0-4.8) Monocytes # (Auto) 1.4 x10^3/uL (0.0-1.1) Eosinophils # (Auto) 1.1 x10^3/uL (0.0-0.7) Basophils # (Auto) 0.1 x10^3/uL (0.0-0.2) Segmented Neutrophils % 62 % (35-66) Band Neutrophils % 5 % (0-9) Lymphocytes % 8 % (24-48) Monocytes % 11 % (0-10) Eosinophils % 14 % (0-5) Platelet Estimate Adequate (ADEQUATE) Sodium Level 143 mmol/L (136-145) Potassium Level 3.4 mmol/L (3.5-5.1) Chloride Level 106 mmol/L (98-107) Carbon Dioxide Level 31 mmol/L (21-32) Anion Gap 6 (6-14) Blood Urea Nitrogen 11 mg/dL (8-26) Creatinine 0.5 mg/dL (0.7-1.3) Estimated GFR (Cockcroft-Gault) 169.6 BUN/Creatinine Ratio 22 (6-20) Glucose Level 108 mg/dL (70-99) Calcium Level 8.8 mg/dL (8.5-10.1) Total Bilirubin 0.4 mg/dL (0.2-1.0) Aspartate Amino Transf (AST/SGOT) 28 U/L (15-37) Alanine Aminotransferase (ALT/SGPT) 225 U/L (16-63) Alkaline Phosphatase 103 U/L (46-116) Total Protein 6.2 g/dL (6.4-8.2) Albumin 2.2 g/dL (3.4-5.0) Albumin/Globulin Ratio 0.6 (1.0-1.7) Procalcitonin 0.11 ng/mL (0.00-0.10) Test 02/12/19 08:00 O2 Saturation 95 % (92-99) Arterial Blood pH 7.43 (7.35-7.45) Arterial Blood pCO2 at Patient Temp 43 mmHg (35-46) Arterial Blood pO2 at Patient Temp 83 mmHg (65-108) Arterial Blood HCO3 28 mmol/L (21-28) Arterial Blood Base Excess 4 mmol/L (-3-3) FiO2 55 Medications Active Scripts Medications Dose Route/Sig Max Daily Dose Days Date Category Unasyn 3 Gm Vial (Ampicillin Sodium/Sulbactam Na) 3 Gm Vial 2 Gm IV Q4HRS 45 01/05/19 Rx Oxycodone Hcl Immed.release (Oxycodone Hcl) 5 Mg Tablet 10 Mg PO PRN Q4HRS PRN 01/04/19 Rx Oxycontin (Oxycodone HCl) 15 Mg Tab.er.12h 15 Mg PO Q12HR 01/04/19 Rx Colace (Docusate Sodium) 100 Mg Capsule 100 Mg PO BID 30 12/09/18 Rx Hydrochlorothiazide Capsule (Hydrochlorothiazide) 12.5 Mg Capsule 25 Mg PO DAILY 11/29/18 Reported Proair Hfa Inhaler (Albuterol Sulfate) 8.5 Gm Hfa.aer.ad 2 Puff INH PRN Q6HRS PRN 11/29/18 Reported Albuterol Sulfate Neb Soln (Albuterol Sulfate) 2.5 Mg/3 Ml Vial.neb 2.5 Mg NEB PRN Q4-6HRS PRN 11/29/18 Reported Ipratropium [place] 0.2 Mg/1 Ml Solution 0.2 Mg IH PRN Q4-6HRS PRN 11/29/18 Reported Zoloft (Sertraline Hcl) 100 Mg Tablet 1 Tab PO DAILY 11/04/18 Reported Robaxin (Methocarbamol) 500 Mg Tablet 500 Mg PO QID PRN 11/04/18 Reported Azelastine Hcl 6 Ml Drops 1 Drop EACHEYE PRN DAILY PRN 11/04/18 Reported Lisinopril 10 Mg Tablet 10 Mg PO DAILY 08/12/17 Reported Lasix (Furosemide) 20 Mg Tablet 20 Mg PO DAILY 08/12/17 Reported Tamsulosin Hcl 0.4 Mg Cap.er.24h 0.4 Mg PO DAILY 08/12/17 Reported Montelukast Sodium Tablet (Montelukast Sodium) 10 Mg Tablet 10 Mg PO HS 08/12/17 Reported Metoprolol Tartrate 25 Mg Tablet 25 Mg PO BID 07/11/16 Rx Omeprazole 20 Mg Capsule.dr 20 Mg PO DAILY 07/09/16 Reported Topiramate 50 Mg Tablet 1 Tab PO BID 07/09/16 Reported Daliresp (Roflumilast) 500 Mcg Tablet 500 Mcg PO DAILY 07/09/16 Reported Comments reviewed cxr, 02/12 mild improved aeration Impression . 1. Acute respiratory failure, multifactorial in etiology. Re- Intubated 02/08 2. Persistent encephalopathy/ Persistent fever, ? PICC related infection ? GLOBAL CEO infection. Could not do LP. on BS Abx 3. Acute kidney injury. Electrolyte abnormality. improving 4. Elevated troponin, non-ST elevation myocardial infarction. 5. Atrial fibrillation with rapid ventricular response, now rate controlled. 6. Hyperkalemia. resolved 7. Status post back surgery, epidural abscess, incision and drainage, on antibiotic. no extension to brain on MRI 8. Chronic obstructive pulmonary disease. 9. Acute diastolic congestive heart failure. 10. sepsis, ? aspiration, s/p Bronch. no purulent secretions, cultures neg 11. Obstructive sleep apnea-hypopnea syndrome. 12. elevated LFTs improving/ shock liver, improving Plan . 1. AC mode / wean PEEP / FIO2 2. watch resp status closely, off versed, I stopped propofol/ fentanyl this am. He did not follow any commands. suspect sepsis is still contributing to his encephalopathy. follow BC, ? REMOVE PICC 3. bronchodilator. 4. Bronch done , cultures Neg 5. Pepcid for stress ulcer prophylaxis. 6. Monitor renal function 7. d/w DR Herring. May benefit from LP but cannot be done due to recent spinal surgery. Abx broaden to cover any GLOBAL CEO infection 8. abx per id 9. Cardiology rec discussed with RN/ FOREIGN GOODE MD Feb 12, 2019 12:10
[2019-02-12] MEDS: VANCOMYCIN PER PHARMACY MC PRN (13:10)
--- NOTE | 2019-02-12 16:05 | PDOC ---
ICU PROGRESS NOTES Subjective He remains orally intubated, he will open eyes but no purposeful responses, febrile now Objective Objective sedated, intubated lungs clear anteriorly, no JVD monitoring and evaluation advisor - afib, rate controlled abd obese but soft, active bowel sounds present feet warm, edematous [place] in place with adequate output, urine darker in color Vitals Vital Signs Date Time Temp Pulse Resp B/P (MAP) Pulse Ox O2 Delivery O2 Flow Rate FiO2 02/12/19 14:00 82 18 147/84 (105) 100 Ventilator 02/12/19 12:00 98.8 98.8 02/12/19 01:36 3.0 Input & Output Intake and Output 02/12/19 07:00 Intake Total 3421.3 ml Output Total 1660 ml Balance 1761.3 ml IV Total 1036.3 ml Tube Feeding 1760 ml Other 625 ml Output Urine Total 1660 ml Ventilator Settings O2 Flow Rate: 3.0 Oxygen Delivery Device: Ventilator O2 Humdified: HME Temperature (97-99 F): Yes FiO2: 55 SpO2: 100 DVT Prophylaxis DVT Prophylaxis yes, heparin Stress Ulcer Prophylaxis Stress Ulcer Prophylaxis yes Imaging Imaging Single view of the chest. 02/10/2019 5:00 AM Indication: Endotracheal tube placement Comparison: Chest radiograph, yesterday FINDINGS: Endotracheal tube remains in place with tip approximately 4.5 cm above the pauline. There is an enteric tube extending below the diaphragm. There is a right upper extremity PICC line, the tip of which is somewhat poorly visualized. The tip appears to be in expected position. Moderate bilateral pleural effusions are grossly similar. No pneumothorax is seen. Diffuse interstitial coarsening is stable. No acute osseous changes are noted in the interim. IMPRESSION: 1. Stable support lines and tubes 2. Diffuse interstitial thickening and moderate pleural effusions, similar to prior exam TECHNIQUE:Portable AP chest X-ray COMPARISON:02/08/2019 FINDINGS: ET tube is seen approximately 3.2 cm from the level of pauline and is in appropriate position. NG tube is seen with its tip in the stomach. Heart is mildly enlarged in size. Silhouetting of the bilateral hemidiaphragms with consolidations in the lung bases and blunting of the bilateral costophrenic angles. Prominent bronchial markings are seen in the upper lobes. No pneumothorax. Right-sided PICC line is seen with its tip in the right brachiocephalic trunk IMPRESSION: 1. Bilateral lower lobe consolidations may be secondary to atelectasis or pneumonia. 2. Bilateral small pleural effusions. MRI L-spine: FINDINGS: Comparison study is dated 12/29/2018. Mild S-shaped curvature of the thoracolumbar spine is seen. Degenerative signal changes are seen involving all of the disks of the lumbar spine. Degenerative signal changes are seen within the marrow surrounding these discs. A subacute compression fracture of the superior endplate of the T12 vertebral body is again seen. No retropulsion of bone fragments into the central spinal canal is noted. The conus medullaris is normal morphology, position, and signal characteristics. Increased signal intensity is seen on the T2-weighted images involving the L4-5 disc. Increased signal intensity is seen within the marrow surrounding this disc on the T2-weighted and inversion recovery images. This demonstrates decreased signal intensity on the T1-weighted images and varying degrees of enhancement. These findings have increased since the previous examination. They are concerning for discitis/osteomyelitis. Clinical correlation is recommended. The patient is post left hemilaminectomy at L4-5. The fluid collections within the laminectomy site seen on the previous examination have resolved. Increased soft tissue intensity is seen is seen within the anterior epidural space extending to the left of midline into the left neural foramen at this level which enhances with contrast. This could represent epidural scarring versus epidural phlegmon. The changes of degenerative disc disease are seen throughout the lumbar spine. These consist of mild to moderate generalized disc bulges. Degenerative changes involving the facet joints and mild to moderate ligamentum flavum hypertrophy along with prominence of posterior epidural fat. These findings result in mild central spinal canal stenosis at L2-3 and mild to moderate central spinal canal stenosis at L3-4 mild right neural foraminal stenosis is seen at L3-4. Moderate left neural foraminal stenosis is seen at L4-5. IMPRESSION: Findings are seen concerning for discitis/osteomyelitis at L4-5 as outlined above. Clinical correlation is recommended. Labs Labs Laboratory Tests Test 02/11/19 23:06 02/11/19 23:08 Glucose (Fingerstick) 103 mg/dL (70-99) 92 mg/dL (70-99) Medications Medications Current Medications Aspirin (Chase Aspirin) 325 mg [id number] PO Last administered on 02/12/19at 08: 20; Start 02/12/19 at 08:00 Metoprolol Tartrate (Lopressor) 25 mg Q6HRS PO Last administered on 02/12/19at 12:27; Start 02/11/19 at 18:00 Vancomycin HCl (Vancomycin Trough Level) 1 each 1X ONCE MC Last administered on 02/11/19at 22:30; Start 02/11/19 at 22:30; Stop 02/11/19 at 22:31; Status DC Vancomycin HCl (Vancomycin Trough Level) 1 each 1X ONCE MC ; Start 02/13/19 at 11:30; Stop 02/13/19 at 11:31 Vancomycin HCl 1.75 gm/Sodium Chloride 500 ml @ 250 mls/hr Q12H IV Last administered on 02/12/19at 12:26; Start 02/12/19 at 00:00 Physical Exam Lungs: Other (decrease bs) Cardiovascular: S1, Other Abdomen: Soft, Non-tender Extremities: Other ( edema throughout) Skin: Warm, Cool (feet) Impression . 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 Boyd acute flare of lumbar back pain last week without injury requiring an increase in pain meds for control - MRI L-spine obesity ADILNEE hx of alcoholism - I am unaware of him drinking alcohol while at [facility] and admission alcohol level was undetectable anemia - stable AL - he was taking unprescribed NSAIDS, osteoBiflex gummies from home at [facility] for pain Afib/RVR - rate controlled constipation per [facility] imaging fever - cultures repeated, PICC to be replaced with central line edema - Roseann Connell MD Feb 12, 2019 16:05
[2019-02-12] MEDS ORDERED: FUROSEMIDE 40 MG/4 ML VIAL. IVP ONE (17:00)
[2019-02-12] MEDS: ENOXAPARIN 40 MG/0.4 ML SYRINGE. SQ SCH (17:05)
[2019-02-12 18:12] LABS: BILIRUBIN,URINE NEGATIVE (NEG); CLARITY,URINE CLEAR; COLOR,URINE YELLOW; NITRITE,URINE NEGATIVE (NEG); PH,URINE 5.5; PROTEIN,URINE NEGATIVE (NEG-TRACE); UROBILINOGEN,URINE 0.2 mg/dL (0.2 mg/dL)
[2019-02-12 18:27] LABS: BACTERIA,URINE 0 /HPF (0-FEW); WBC,URINE 0 /HPF (0-4)
[2019-02-13] VITALS (24 sets, daily range): BP systolic 101–164; BP diastolic 46–93
[2019-02-13] MEDS: PROPOFOL 100 ML IV PRN ×7 (02:19→20:41)
[2019-02-13] MEDS: CEFEPIME HCL IV Push 2 GM VIAL. IVP SCH ×3 (05:45→23:13)
[2019-02-13] MEDS: DEXTROSE 5% IV SCH ×3 (05:46→23:12)
[2019-02-13] MEDS: ACYCLOVIR SODIUM IV SCH ×3 (05:46→23:12)
[2019-02-13] MEDS: METOPROLOL TART IMMED RELEASE 25 MG TABLET. PO SCH ×3 (05:47→18:25)
[2019-02-13] MEDS: IPRATRPIUM/ALBUTEROL 0.5/2.5MG 3 ML NEBU. NEB SCH ×4 (08:08→20:12)
[2019-02-13] MEDS: BUDESONIDE 0.5 MG/2 ML NEBU. NEB SCH ×2 (08:08→20:13)
[2019-02-13] MEDS: ASPIRIN 325 MG TABLET PO SCH (08:10)
[2019-02-13] MEDS: FAMOTIDINE 20 MG/2 ML VIAL IVP SCH ×2 (08:12→22:22)
[2019-02-13] MEDS: NICOTINE 21MG PATCH. TD SCH (08:12)
[2019-02-13 08:30] LABS: BASO # 0.1 x10^3/uL (0.0-0.2); BASO % 1 % (0-3); EOS # 1.1 x10^3/uL (0.0-0.7); EOS % 15 % (0-3); LYMPH % 12 % (24-48); MEAN CORPUSCULAR HEMOGLOBIN 30 pg (25-35); MEAN CORPUSCULAR HGB CONC 32 g/dL (31-37); MEAN CORPUSCULAR VOLUME 93 fL (79-100); MONO % 13 % (0-9); NEUT # 4.6 x10^3uL (1.8-7.7); NEUT % 59 % (31-73); PLATELET COUNT 341 x10^3/uL (140-400); RED CELL DISTRIBUTION WIDTH 14.3 % (11.5-14.5); WHITE BLOOD COUNT 7.8 x10^3/uL (4.0-11.0)
[2019-02-13 08:31] LABS: BASE EXCESS ABG 5 mmol/L (-3-3); HCO3 ABG 30 mmol/L (21-28); PCO2 ABG 47 mmHg (35-46); PO2 ABG 76 mmHg (65-108); SAT O2 ABG 94 % (92-99)
[2019-02-13 08:33] LABS: FIO2 ABG 50
[2019-02-13] MEDS: levETIRAcetam 500 MG in IV DEXTROSE 5% 100ML 100 ML IV SCH ×2 (08:33→22:22)
--- NOTE | 2019-02-13 08:33 | RAD ---
Examination: EXT NON VASC RIGHT History: Swelling Comparison/Correlation: None Findings: Ultrasound examination of the right upper extremity was performed. There is a complex fluid collection measuring 2.3 cm x 0.8 cm x 7.4 cm. No flow within it or about it. Complex fluid collection involving the proximal right upper extremity. Impression: Complex proximal right upper extremity collection of indeterminate significance. Electronically signed by: Kunal Wade MD (02/13/2019 8:29 AM) [facility]
[2019-02-13 08:39] LABS: CALCIUM 8.5 mg/dL (8.5-10.1); CREATININE 0.6 mg/dL (0.7-1.3); GFR 137.4; POTASSIUM 3.5 mmol/L (3.5-5.1)
--- NOTE | 2019-02-13 08:58 | RAD ---
CHEST AP ONLY Clinical Indication: ETT PLACEMENT, VENTILATOR Comparison: 02/12/2019 portable chest x-ray exam. Findings: Endotracheal tube terminates 6.4 cm from the pauline. Right-sided PICC noted Enteric tube is again seen. Heart size is borderline. Pulmonary vasculature is congested.. No pneumothorax.. Bilateral pleural effusions greater in size in the right again seen. Bibasilar opacification noted greater on the right. Old left rib fracture is evident. IMPRESSION: Increased right basilar opacification. Bilateral small to moderate-sized pleural effusions greater on the right with adjacent atelectasis and/or consolidation.. Electronically signed by: Kunal Wade MD (02/13/2019 8:55 AM) [facility]
[2019-02-13] MEDS ORDERED: FUROSEMIDE 40 MG/4 ML VIAL. IVP ONE (09:15)
--- NOTE | 2019-02-13 09:17 | PDOC ---
ICU PROGRESS NOTES Subjective He remains orally intubated, diuresed 5 liters yesterday but still edematous, PICC still in as unable to place central line yesterday, WBC normal, renal function and potassium normal, monitor still showing Afib but rate controlled Objective Objective sedated, intubated lungs clear anteriorly, no JVD media monitor - afib, rate controlled abd obese but soft and non distended, active bowel sounds present feet warm, edema hands, arms, feet Stratton in place with excellent output Vitals Vital Signs Date Time Temp Pulse Resp B/P (MAP) Pulse Ox O2 Delivery O2 Flow Rate FiO2 02/13/19 08:56 98 Ventilator 02/13/19 08:00 98.8 76 18 105/67 (80) 98.8 02/12/19 19:07 3.0 Input & Output Intake and Output 02/13/19 07:00 Intake Total 3771 ml Output Total 5095 ml Balance -1324 ml IV Total 999 ml Tube Feeding 2072 ml Other 700 ml Output Urine Total 5095 ml Ventilator Settings O2 Flow Rate: 3.0 Oxygen Delivery Device: Ventilator O2 Humdified: HME Temperature (97-99 F): Yes FiO2: 50 SpO2: 98 DVT Prophylaxis DVT Prophylaxis yes, heparin Stress Ulcer Prophylaxis Stress Ulcer Prophylaxis yes Imaging Imaging CHEST AP ONLY Clinical Indication: ETT PLACEMENT, VENTILATOR Comparison: 02/12/2019 portable chest x-ray exam. Findings: Endotracheal tube terminates 6.4 cm from the pauline. Right-sided PICC noted Enteric tube is again seen. Heart size is borderline. Pulmonary vasculature is congested.. No pneumothorax.. Bilateral pleural effusions greater in size in the right again seen. Bibasilar opacification noted greater on the right. Old left rib fracture is evident. IMPRESSION: Increased right basilar opacification. Bilateral small to moderate-sized pleural effusions greater on the right with adjacent atelectasis and/or consolidation.. Single view of the chest. 02/10/2019 5:00 AM Indication: Endotracheal tube placement Comparison: Chest radiograph, yesterday FINDINGS: Endotracheal tube remains in place with tip approximately 4.5 cm above the pauline. There is an enteric tube extending below the diaphragm. There is a right upper extremity PICC line, the tip of which is somewhat poorly visualized. The tip appears to be in expected position. Moderate bilateral pleural effusions are grossly similar. No pneumothorax is seen. Diffuse interstitial coarsening is stable. No acute osseous changes are noted in the interim. IMPRESSION: 1. Stable support lines and tubes 2. Diffuse interstitial thickening and moderate pleural effusions, similar to prior exam TECHNIQUE:Portable AP chest X-ray COMPARISON:02/08/2019 FINDINGS: ET tube is seen approximately 3.2 cm from the level of pauline and is in appropriate position. NG tube is seen with its tip in the stomach. Heart is mildly enlarged in size. Silhouetting of the bilateral hemidiaphragms with consolidations in the lung bases and blunting of the bilateral costophrenic angles. Prominent bronchial markings are seen in the upper lobes. No pneumothorax. Right-sided PICC line is seen with its tip in the right brachiocephalic trunk IMPRESSION: 1. Bilateral lower lobe consolidations may be secondary to atelectasis or pneumonia. 2. Bilateral small pleural effusions. MRI L-spine: FINDINGS: Comparison study is dated 12/29/2018. Mild S-shaped curvature of the thoracolumbar spine is seen. Degenerative signal changes are seen involving all of the disks of the lumbar spine. Degenerative signal changes are seen within the marrow surrounding these discs. A subacute compression fracture of the superior endplate of the T12 vertebral body is again seen. No retropulsion of bone fragments into the central spinal canal is noted. The conus medullaris is normal morphology, position, and signal characteristics. Increased signal intensity is seen on the T2-weighted images involving the L4-5 disc. Increased signal intensity is seen within the marrow surrounding this disc on the T2-weighted and inversion recovery images. This demonstrates decreased signal intensity on the T1-weighted images and varying degrees of enhancement. These findings have increased since the previous examination. They are concerning for discitis/osteomyelitis. Clinical correlation is recommended. The patient is post left hemilaminectomy at L4-5. The fluid collections within the laminectomy site seen on the previous examination have resolved. Increased soft tissue intensity is seen is seen within the anterior epidural space extending to the left of midline into the left neural foramen at this level which enhances with contrast. This could represent epidural scarring versus epidural phlegmon. The changes of degenerative disc disease are seen throughout the lumbar spine. These consist of mild to moderate generalized disc bulges. Degenerative changes involving the facet joints and mild to moderate ligamentum flavum hypertrophy along with prominence of posterior epidural fat. These findings result in mild central spinal canal stenosis at L2-3 and mild to moderate central spinal canal stenosis at L3-4 mild right neural foraminal stenosis is seen at L3-4. Moderate left neural foraminal stenosis is seen at L4-5. IMPRESSION: Findings are seen concerning for discitis/osteomyelitis at L4-5 as outlined above. Clinical correlation is recommended. Medications Medications Current Medications Furosemide (Lasix) 40 mg 1X ONCE IVP Last administered on 02/12/19at 17:05; Start 02/12/19 at 17:00; Stop 02/12/19 at 17:01; Status DC Vancomycin HCl (Vancomycin Trough Level) 1 each 1X ONCE MC ; Start 02/13/19 at 11:30; Stop 02/13/19 at 11:31 Physical Exam Lungs: Other (decrease bs) Cardiovascular: S1, Other Abdomen: Soft, Non-tender Extremities: Other ( edema throughout) Skin: Warm, Cool (feet) Impression . acute respiratory failure - presumed aspiration with pneumonia NSTEMI acute encephalopathy - possibly infectious likely aspiration pneumonitis , 02/13 CXR showing increased right basilar infiltrate which is likely source of his fever shock liver COPD recent spinal abscess s/p lumbar lami but sed rate had returned to normal APPRAISER L[place] and he was nearly finished with 45 day course of antibiotics, MRI suggests discitis/osteomyelitis at L4-5 but now determined to be routine healing acute flare of lumbar back pain last week without injury requiring an increase in pain meds for control obesity ADILENE hx of alcoholism constipation fever Plan . s/p code blue - bag and mask, mechanical ventilation x 48 hrs, then off 48 hrs then reintubated 02/08 acute respiratory failure - presumed aspiration - continue antibiotics NSTEMI - cardiology following acute encephalopathy - LP not done as determined to not be necessary likely aspiration pneumonitis - continue antibiotics shock liver - improving - monitor COPD - continue neb treatments recent spinal abscess s/p lumbar lami but sed rate had returned to normal APPRAISER L[place] and he was nearly finished with 45 day course of antibiotics, recheck sed rate, consult Dr. Boyd acute flare of lumbar back pain last week without injury requiring an increase in pain meds for control - MRI L-spine obesity ADILENE hx of alcoholism - I am unaware of him drinking alcohol while at [facility] and admission alcohol level was undetectable anemia - stable AL - he was taking unprescribed NSAIDS, osteoBiflex gummies from home at [facility] for pain Afib/RVR - rate controlled with meds constipation per [facility] imaging - bowels moving fever - cultures repeated, PICC to be replaced with central line edema - lasix helped, repeat today Roseann JAY MD Feb 13, 2019 09:17
--- NOTE | 2019-02-13 10:27 | PDOC ---
PULMONARY PROGRESS NOTES Subjective extubated 02/06, re-intubated 02/08 continues to have low grade fever AC mode, does not follow commands while off sedation Vitals Vital Signs Date Time Temp Pulse Resp B/P (MAP) Pulse Ox O2 Delivery O2 Flow Rate FiO2 02/13/19 09:00 76 18 133/77 (95) 99 Ventilator 02/13/19 08:00 98.8 98.8 02/12/19 19:07 3.0 Comments r Lungs: Other (decrease bs) Cardiovascular: S1, Other Abdomen: Soft, Non-tender Extremities: Other ( edema throughout) Skin: Warm, Cool (feet) Labs Laboratory Tests Test 02/11/19 22:45 02/11/19 23:06 02/11/19 23:08 02/12/19 06:00 Vancomycin Level Trough 10.0 mcg/mL (10.0-20.0) Vancomycin Last Dose Date 02/11/19 Vancomycin Last Dose Time 1100 Glucose (Fingerstick) 103 mg/dL (70-99) 92 mg/dL (70-99) White Blood Count 9.7 x10^3/uL (4.0-11.0) Red Blood Count 3.16 x10^6/uL (4.30-5.70) Hemoglobin 9.7 g/dL (13.0-17.5) Hematocrit 29.4 % (39.0-53.0) Mean Corpuscular Volume 93 fL (79-100) Mean Corpuscular Hemoglobin 31 pg (25-35) Mean Corpuscular Hemoglobin Concent 33 g/dL (31-37) Red Cell Distribution Width 14.2 % (11.5-14.5) Platelet Count 333 x10^3/uL (140-400) Neutrophils (%) (Auto) 64 % (31-73) Lymphocytes (%) (Auto) 10 % (24-48) Monocytes (%) (Auto) 15 % (0-9) Eosinophils (%) (Auto) 11 % (0-3) Basophils (%) (Auto) 1 % (0-3) Neutrophils # (Auto) 6.1 x10^3uL (1.8-7.7) Lymphocytes # (Auto) 1.0 x10^3/uL (1.0-4.8) Monocytes # (Auto) 1.4 x10^3/uL (0.0-1.1) Eosinophils # (Auto) 1.1 x10^3/uL (0.0-0.7) Basophils # (Auto) 0.1 x10^3/uL (0.0-0.2) Segmented Neutrophils % 62 % (35-66) Band Neutrophils % 5 % (0-9) Lymphocytes % 8 % (24-48) Monocytes % 11 % (0-10) Eosinophils % 14 % (0-5) Platelet Estimate Adequate (ADEQUATE) Sodium Level 143 mmol/L (136-145) Potassium Level 3.4 mmol/L (3.5-5.1) Chloride Level 106 mmol/L (98-107) Carbon Dioxide Level 31 mmol/L (21-32) Anion Gap 6 (6-14) Blood Urea Nitrogen 11 mg/dL (8-26) Creatinine 0.5 mg/dL (0.7-1.3) Estimated GFR (Cockcroft-Gault) 169.6 BUN/Creatinine Ratio 22 (6-20) Glucose Level 108 mg/dL (70-99) Calcium Level 8.8 mg/dL (8.5-10.1) Total Bilirubin 0.4 mg/dL (0.2-1.0) Aspartate Amino Transf (AST/SGOT) 28 U/L (15-37) Alanine Aminotransferase (ALT/SGPT) 225 U/L (16-63) Alkaline Phosphatase 103 U/L (46-116) Total Protein 6.2 g/dL (6.4-8.2) Albumin 2.2 g/dL (3.4-5.0) Albumin/Globulin Ratio 0.6 (1.0-1.7) Procalcitonin 0.11 ng/mL (0.00-0.10) Test 02/12/19 08:00 02/12/19 17:30 02/13/19 08:15 02/13/19 08:20 O2 Saturation 95 % (92-99) 94 % (92-99) Arterial Blood pH 7.43 (7.35-7.45) 7.42 (7.35-7.45) Arterial Blood pCO2 at Patient Temp 43 mmHg (35-46) 47 mmHg (35-46) Arterial Blood pO2 at Patient Temp 83 mmHg (65-108) 76 mmHg (65-108) Arterial Blood HCO3 28 mmol/L (21-28) 30 mmol/L (21-28) Arterial Blood Base Excess 4 mmol/L (-3-3) 5 mmol/L (-3-3) FiO2 55 50 Urine Collection Type Unknown Urine Color Yellow Urine Clarity Clear Urine pH 5.5 Urine Specific [place] <=1.005 Urine Protein Negative mg/dL (NEG-TRACE) Urine Glucose (UA) Negative mg/dL (NEG) Urine Ketones (Stick) Negative mg/dL (NEG) Urine Blood Negative (NEG) Urine Nitrite Negative (NEG) Urine Bilirubin Negative (NEG) Urine Urobilinogen Dipstick 0.2 mg/dL (0.2 mg/dL) Urine Leukocyte Esterase Negative (NEG) Urine RBC 1-2 /HPF (0-2) Urine WBC 0 /HPF (0-4) Urine Bacteria 0 /HPF (0-FEW) White Blood Count 7.8 x10^3/uL (4.0-11.0) Red Blood Count 3.00 x10^6/uL (4.30-5.70) Hemoglobin 9.0 g/dL (13.0-17.5) Hematocrit 28.0 % (39.0-53.0) Mean Corpuscular Volume 93 fL (79-100) Mean Corpuscular Hemoglobin 30 pg (25-35) Mean Corpuscular Hemoglobin Concent 32 g/dL (31-37) Red Cell Distribution Width 14.3 % (11.5-14.5) Platelet Count 341 x10^3/uL (140-400) Neutrophils (%) (Auto) 59 % (31-73) Lymphocytes (%) (Auto) 12 % (24-48) Monocytes (%) (Auto) 13 % (0-9) Eosinophils (%) (Auto) 15 % (0-3) Basophils (%) (Auto) 1 % (0-3) Neutrophils # (Auto) 4.6 x10^3uL (1.8-7.7) Lymphocytes # (Auto) 1.0 x10^3/uL (1.0-4.8) Monocytes # (Auto) 1.0 x10^3/uL (0.0-1.1) Eosinophils # (Auto) 1.1 x10^3/uL (0.0-0.7) Basophils # (Auto) 0.1 x10^3/uL (0.0-0.2) Sodium Level 144 mmol/L (136-145) Potassium Level 3.5 mmol/L (3.5-5.1) Chloride Level 106 mmol/L (98-107) Carbon Dioxide Level 34 mmol/L (21-32) Anion Gap 4 (6-14) Blood Urea Nitrogen 14 mg/dL (8-26) Creatinine 0.6 mg/dL (0.7-1.3) Estimated GFR (Cockcroft-Gault) 137.4 Glucose Level 123 mg/dL (70-99) Calcium Level 8.5 mg/dL (8.5-10.1) Laboratory Tests Test 02/12/19 17:30 02/13/19 08:15 02/13/19 08:20 Urine Collection Type Unknown Urine Color Yellow Urine Clarity Clear Urine pH 5.5 Urine Specific Porter <=1.005 Urine Protein Negative mg/dL (NEG-TRACE) Urine Glucose (UA) Negative mg/dL (NEG) Urine Ketones (Stick) Negative mg/dL (NEG) Urine Blood Negative (NEG) Urine Nitrite Negative (NEG) Urine Bilirubin Negative (NEG) Urine Urobilinogen Dipstick 0.2 mg/dL (0.2 mg/dL) Urine Leukocyte Esterase Negative (NEG) Urine RBC 1-2 /HPF (0-2) Urine WBC 0 /HPF (0-4) Urine Bacteria 0 /HPF (0-FEW) O2 Saturation 94 % (92-99) Arterial Blood pH 7.42 (7.35-7.45) Arterial Blood pCO2 at Patient Temp 47 mmHg (35-46) Arterial Blood pO2 at Patient Temp 76 mmHg (65-108) Arterial Blood HCO3 30 mmol/L (21-28) Arterial Blood Base Excess 5 mmol/L (-3-3) FiO2 50 White Blood Count 7.8 x10^3/uL (4.0-11.0) Red Blood Count 3.00 x10^6/uL (4.30-5.70) Hemoglobin 9.0 g/dL (13.0-17.5) Hematocrit 28.0 % (39.0-53.0) Mean Corpuscular Volume 93 fL (79-100) Mean Corpuscular Hemoglobin 30 pg (25-35) Mean Corpuscular Hemoglobin Concent 32 g/dL (31-37) Red Cell Distribution Width 14.3 % (11.5-14.5) Platelet Count 341 x10^3/uL (140-400) Neutrophils (%) (Auto) 59 % (31-73) Lymphocytes (%) (Auto) 12 % (24-48) Monocytes (%) (Auto) 13 % (0-9) Eosinophils (%) (Auto) 15 % (0-3) Basophils (%) (Auto) 1 % (0-3) Neutrophils # (Auto) 4.6 x10^3uL (1.8-7.7) Lymphocytes # (Auto) 1.0 x10^3/uL (1.0-4.8) Monocytes # (Auto) 1.0 x10^3/uL (0.0-1.1) Eosinophils # (Auto) 1.1 x10^3/uL (0.0-0.7) Basophils # (Auto) 0.1 x10^3/uL (0.0-0.2) Sodium Level 144 mmol/L (136-145) Potassium Level 3.5 mmol/L (3.5-5.1) Chloride Level 106 mmol/L (98-107) Carbon Dioxide Level 34 mmol/L (21-32) Anion Gap 4 (6-14) Blood Urea Nitrogen 14 mg/dL (8-26) Creatinine 0.6 mg/dL (0.7-1.3) Estimated GFR (Cockcroft-Gault) 137.4 Glucose Level 123 mg/dL (70-99) Calcium Level 8.5 mg/dL (8.5-10.1) Medications Active Scripts Medications Dose Route/Sig Max Daily Dose Days Date Category Unasyn 3 Gm Vial (Ampicillin Sodium/Sulbactam Na) 3 Gm Vial 2 Gm IV Q4HRS 45 01/05/19 Rx Oxycodone Hcl Immed.release (Oxycodone Hcl) 5 Mg Tablet 10 Mg PO PRN Q4HRS PRN 01/04/19 Rx Oxycontin (Oxycodone HCl) 15 Mg Tab.er.12h 15 Mg PO Q12HR 01/04/19 Rx Colace (Docusate Sodium) 100 Mg Capsule 100 Mg PO BID 30 12/09/18 Rx Hydrochlorothiazide Capsule (Hydrochlorothiazide) 12.5 Mg Capsule 25 Mg PO DAILY 11/29/18 Reported Proair Hfa Inhaler (Albuterol Sulfate) 8.5 Gm Hfa.aer.ad 2 Puff INH PRN Q6HRS PRN 11/29/18 Reported Albuterol Sulfate Neb Soln (Albuterol Sulfate) 2.5 Mg/3 Ml Vial.neb 2.5 Mg NEB PRN Q4-6HRS PRN 11/29/18 Reported Ipratropium [place] 0.2 Mg/1 Ml Solution 0.2 Mg IH PRN Q4-6HRS PRN 11/29/18 Reported Zoloft (Sertraline Hcl) 100 Mg Tablet 1 Tab PO DAILY 11/04/18 Reported Robaxin (Methocarbamol) 500 Mg Tablet 500 Mg PO QID PRN 11/04/18 Reported Azelastine Hcl 6 Ml Drops 1 Drop EACHEYE PRN DAILY PRN 11/04/18 Reported Lisinopril 10 Mg Tablet 10 Mg PO DAILY 08/12/17 Reported Lasix (Furosemide) 20 Mg Tablet 20 Mg PO DAILY 08/12/17 Reported Tamsulosin Hcl 0.4 Mg Cap.er.24h 0.4 Mg PO DAILY 08/12/17 Reported Montelukast Sodium Tablet (Montelukast Sodium) 10 Mg Tablet 10 Mg PO HS 08/12/17 Reported Metoprolol Tartrate 25 Mg Tablet 25 Mg PO BID 07/11/16 Rx Omeprazole 20 Mg Capsule.dr 20 Mg PO DAILY 07/09/16 Reported Topiramate 50 Mg Tablet 1 Tab PO BID 07/09/16 Reported Daliresp (Roflumilast) 500 Mcg Tablet 500 Mcg PO DAILY 07/09/16 Reported Comments reviewed cxr, 02/13 bibasilar effusions/ atelectasis Impression . 1. Acute respiratory failure, multifactorial in etiology. Re- Intubated 02/08 2. Persistent encephalopathy/ Persistent low grade fever, ? PICC related infection ? [employer] infection. Could not do LP. on BS Abx/ infectious etiology contributing to encephalopathy 3. Acute kidney injury. Electrolyte abnormality. improving 4. Elevated troponin, non-ST elevation myocardial infarction. 5. Atrial fibrillation with rapid ventricular response, now rate controlled. 6. Hyperkalemia. resolved 7. Status post back surgery, epidural abscess, incision and drainage, on antibiotic. no extension to brain on MRI 8. Chronic obstructive pulmonary disease. 9. Acute diastolic congestive heart failure. 10. sepsis, ? aspiration, s/p Bronch. no purulent secretions, cultures neg 11. Obstructive sleep apnea-hypopnea syndrome. 12. elevated LFTs improving/ shock liver, improving Plan . 1. AC mode / wean PEEP to 5 / FIO2 50% 2. watch resp status closely, off versed x 2 days now, I stopped propofol/ fentanyl this am. He did not follow any commands but not as restless. suspect sepsis is still contributing to his encephalopathy. follow BC, REMOVE PICC today 3. bronchodilator. 4. Bronch done , cultures Neg 5. Pepcid for stress ulcer prophylaxis. 6. Monitor renal function 7. LP cannot be done due to recent spinal surgery. Abx broaden to cover any [employer] infection 8. abx per id 9. Cardiology rec discussed with RN/ 10. If he fails to improve, is open to tracheostomy FOREIGN GOODE MD Feb 13, 2019 10:27
--- NOTE | 2019-02-13 11:28 | PDOC ---
Infectious Disease Note Subjective Subjective Remains intubated,,FiO2 down to 50% More alert and responsive earlier per RN Ongoing fevers Tmax 100.[address] due to unsuccessful attempts to place PIVs There is also no one available to place a central line either ROS ROS unobtainable Vital Sign Vital Signs Vital Signs Date Time Temp Pulse Resp B/P (MAP) Pulse Ox O2 Delivery O2 Flow Rate FiO2 02/13/19 10:53 21 97 Ventilator 02/13/19 10:00 108 145/81 (102) 02/13/19 08:00 98.8 98.8 02/12/19 19:07 3.0 Physical Exam PHYSICAL EXAM GENERAL: Sedated and intubated, upward gaze, not tracking HEENT: Pupils equal, ETT and OGT in place. LUNGS: Diminished aeration. HEART: S1 and S2. ABDOMEN: Obese, soft. No grimace or guarding to palpation, with bowel sounds present. GENITOURINARY: Stratton in place. EXTREMITIES: Generalized edema,,No cyanosis. SKIN: Warm, without rash. NEUROLOGIC: sedated on vent RUE-PICC (POA) no redness, + arm swelling Labs Lab Laboratory Tests Test 02/12/19 17:30 02/13/19 08:15 02/13/19 08:20 Urine Collection Type Unknown Urine Color Yellow Urine Clarity Clear Urine pH 5.5 Urine Specific [place] <=1.005 Urine Protein Negative mg/dL (NEG-TRACE) Urine Glucose (UA) Negative mg/dL (NEG) Urine Ketones (Stick) Negative mg/dL (NEG) Urine Blood Negative (NEG) Urine Nitrite Negative (NEG) Urine Bilirubin Negative (NEG) Urine Urobilinogen Dipstick 0.2 mg/dL (0.2 mg/dL) Urine Leukocyte Esterase Negative (NEG) Urine RBC 1-2 /HPF (0-2) Urine WBC 0 /HPF (0-4) Urine Bacteria 0 /HPF (0-FEW) O2 Saturation 94 % (92-99) Arterial Blood pH 7.42 (7.35-7.45) Arterial Blood pCO2 at Patient Temp 47 mmHg (35-46) Arterial Blood pO2 at Patient Temp 76 mmHg (65-108) Arterial Blood HCO3 30 mmol/L (21-28) Arterial Blood Base Excess 5 mmol/L (-3-3) FiO2 50 White Blood Count 7.8 x10^3/uL (4.0-11.0) Red Blood Count 3.00 x10^6/uL (4.30-5.70) Hemoglobin 9.0 g/dL (13.0-17.5) Hematocrit 28.0 % (39.0-53.0) Mean Corpuscular Volume 93 fL (79-100) Mean Corpuscular Hemoglobin 30 pg (25-35) Mean Corpuscular Hemoglobin Concent 32 g/dL (31-37) Red Cell Distribution Width 14.3 % (11.5-14.5) Platelet Count 341 x10^3/uL (140-400) Neutrophils (%) (Auto) 59 % (31-73) Lymphocytes (%) (Auto) 12 % (24-48) Monocytes (%) (Auto) 13 % (0-9) Eosinophils (%) (Auto) 15 % (0-3) Basophils (%) (Auto) 1 % (0-3) Neutrophils # (Auto) 4.6 x10^3uL (1.8-7.7) Lymphocytes # (Auto) 1.0 x10^3/uL (1.0-4.8) Monocytes # (Auto) 1.0 x10^3/uL (0.0-1.1) Eosinophils # (Auto) 1.1 x10^3/uL (0.0-0.7) Basophils # (Auto) 0.1 x10^3/uL (0.0-0.2) Sodium Level 144 mmol/L (136-145) Potassium Level 3.5 mmol/L (3.5-5.1) Chloride Level 106 mmol/L (98-107) Carbon Dioxide Level 34 mmol/L (21-32) Anion Gap 4 (6-14) Blood Urea Nitrogen 14 mg/dL (8-26) Creatinine 0.6 mg/dL (0.7-1.3) Estimated GFR (Cockcroft-Gault) 137.4 Glucose Level 123 mg/dL (70-99) Calcium Level 8.5 mg/dL (8.5-10.1) Venous US RUE, 02/12 Complex proximal right upper extremity collection of indeterminate significance. Micro 02/12 BLOOD CULTURE Preliminary NO GROWTH AFTER 1 DAY Objective Assessment Sepsis with hypotension, POA, ?? likely had dehydration and too much pain meds. off pressers. Procalcitonin 0.11 Fever,,,? line infection. bains cultures NGTD Suspect aspiration Postsurgical spine infection with epidural abscess, s/p I and D on 12/30/18. ENTEROCOCCUS ampS,,,was undergoing TX with ampicillin at [facility]. Completed 6 weeks treatment on 02/10. -Original back surgery was done on 12/09/2018. (microdiscectomy with decompression of the left L4 and L5 nerve roots). -recent ESR up to 76 -Lumbar spine MRI on 02/08 concerning for discitis/osteo at L4-5; considered usual findings after treatment Acute respiratory failure s/p re-intubation,,02/08 electively for MRI. s/p bronchoscopy 02/09. cultures no growth Acute encephalopathy NSTEMI AL,,,improved Shock liver Myoclonic movements, on Keppra Hypertension. Atrial fibrillation. Obstructive sleep apnea. Morbid obesity. Chronic obstructive pulmonary disease. RUE swelling. US showed a 7.6 x 1.5 x 2.1 cm heterogeneous echogenicity identified lateral to the axillary the region in the soft tissue; -f/u US showed complex fluid collection measuring 2.3 cm x 0.8 cm x 7.4 cm. indeterminate significance. Plan Plan of Care Continue vanc, cefepime, acyclovir (abx changed on 02/10) Previously on Zosyn,,,ampicillin Trough 10.0 Cultures NGTD Monitor labs/VS/temp Supportive care MRI lumbar noted, this is expected finding do not believe recent spine infection is playing any role in current illness May need LP PICC to be removed,,,awaiting [facility] or anesthesia for IV access will get IR to drain the fluid rt axilla,unchanged, ? hematoma d/w d/w nursing SOPHY RIDER APRN Feb 13, 2019 11:28 ASHLEY JONES MD Feb 13, 2019 14:54
[2019-02-13 12:24] LABS: VANC TR 12.4 mcg/mL (10.0-20.0)
[2019-02-13] MEDS: VANCOMYCIN 1.75 GM in IV NORMAL SALINE 500ML BAG 500 ML IV SCH (12:33)
[2019-02-13] MEDS: VANCOMYCIN PER PHARMACY MC PRN (15:34)
[2019-02-13] MEDS: ENOXAPARIN 40 MG/0.4 ML SYRINGE. SQ SCH (16:51)
[2019-02-13] MEDS ORDERED: VANCOMYCIN 1.5 GM in IV NORMAL SALINE 500ML BAG 500 ML IV SCH (20:00)
[2019-02-13] MEDS: VANCOMYCIN 1.5 GM in IV NORMAL SALINE 500ML BAG 500 ML IV SCH (21:09)
[2019-02-14] VITALS (24 sets, daily range): BP systolic 102–175; BP diastolic 61–100
[2019-02-14] MEDS: METOPROLOL TART IMMED RELEASE 25 MG TABLET. PO SCH ×5 (01:15→23:45)
[2019-02-14] MEDS: PROPOFOL 100 ML IV PRN ×4 (01:18→08:39)
[2019-02-14] MEDS: VANCOMYCIN 1.5 GM in IV NORMAL SALINE 500ML BAG 500 ML IV SCH ×3 (03:39→19:32)
[2019-02-14] MEDS: DEXTROSE 5% IV SCH ×3 (06:15→21:59)
[2019-02-14] MEDS: ACYCLOVIR SODIUM IV SCH ×3 (06:15→21:59)
[2019-02-14] MEDS: CEFEPIME HCL IV Push 2 GM VIAL. IVP SCH ×3 (06:16→21:59)
[2019-02-14 06:51] LABS: CALCIUM 8.5 mg/dL (8.5-10.1); CREATININE 0.5 mg/dL (0.7-1.3); GFR 169.6
[2019-02-14] MEDS: IPRATRPIUM/ALBUTEROL 0.5/2.5MG 3 ML NEBU. NEB SCH ×4 (08:01→19:42)
[2019-02-14] MEDS: BUDESONIDE 0.5 MG/2 ML NEBU. NEB SCH ×2 (08:02→19:42)
--- NOTE | 2019-02-14 08:17 | RAD ---
Chest radiograph 02/14/2019 9:00 AM INDICATION: Respiratory failure COMPARISON: February 13, 2019 TECHNIQUE: Portable frontal semi-upright view of the chest is provided. FINDINGS: The cardiomediastinal silhouette is enlarged, stable. Endotracheal tube and nasogastric tube are in similar position. Right upper extremity PICC is identified with the distal tip projecting over the superior vena cava. There are small bilateral pleural effusions with adjacent compressive atelectasis versus infiltrates, not significantly changed. Mild to moderate pulmonary vascular congestion appears similar. No pneumothorax. IMPRESSION: Stable support lines and tubes. Similar aeration of the lungs compared to prior examination. Electronically signed by: Tori Torres MD (02/14/2019 8:14 AM) [id number]
[2019-02-14] MEDS: ASPIRIN 325 MG TABLET PO SCH (08:42)
[2019-02-14] MEDS: levETIRAcetam 500 MG in IV DEXTROSE 5% 100ML 100 ML IV SCH ×2 (08:43→20:49)
[2019-02-14] MEDS: FAMOTIDINE 20 MG/2 ML VIAL IVP SCH ×2 (08:43→20:49)
[2019-02-14] MEDS: NICOTINE 21MG PATCH. TD SCH (08:44)
[2019-02-14 09:19] LABS: BASE EXCESS ABG 4 mmol/L (-3-3); HCO3 ABG 30 mmol/L (21-28); PCO2 ABG 47 mmHg (35-46); PO2 ABG 67 mmHg (65-108); SAT O2 ABG 92 % (92-99)
[2019-02-14 09:20] LABS: FIO2 ABG 50
--- NOTE | 2019-02-14 09:21 | PDOC ---
Infectious Disease Note Subjective: Subjective Pt more alert and responsive this am trying to verbalize intubated Fever pattern improved, t max [address] due to unsuccessful attempts to place PIVs Plans are to place central line today ROS: ROS Negative except for above. Vital Signs: Vital Signs Vital Signs Date Time Temp Pulse Resp B/P (MAP) Pulse Ox O2 Delivery O2 Flow Rate FiO2 02/14/19 08:12 100 3.0 02/14/19 08:00 Ventilator 02/14/19 06:16 91 107/61 02/14/19 06:00 21 02/14/19 04:00 99.0 99.0 Physical Exam: PHYSICAL EXAM GENERAL: Sedated and intubated, upward gaze, not tracking HEENT: Pupils equal, ETT and OGT in place. LUNGS: Diminished aeration. HEART: S1 and S2. ABDOMEN: Obese, soft. No grimace or guarding to palpation, with bowel sounds present. GENITOURINARY: [place] in place. EXTREMITIES: Generalized edema,,No cyanosis. SKIN: Warm, without rash. NEUROLOGIC: sedated on vent RUE-PICC (POA) no redness, + arm swelling Medications: Inpatient Meds: Current Medications Medications (Trade) Dose Ordered Sig/Sheryl Start Time Stop Time Status Last Admin Dose Admin Acetaminophen (Tylenol) 650 mg PRN Q6HRS PRN 02/10/19 17:00 02/12/19 08:23 650 MG Acyclovir Sodium 820 mg/Dextrose 116.4 ml @ 116.4 mls/ hr Q8HRS 02/10/19 12:00 02/14/19 06:15 116.4 MLS/HR Albuterol Sulfate (Ventolin Neb Soln) 2.5 mg 1X ONCE 02/07/19 02:15 02/07/19 02:16 DC 02/07/19 02:13 2.5 MG Albuterol/ Ipratropium (Duoneb) 3 ml RTQID 02/05/19 08:00 02/14/19 08:01 3 ML Amino Acids/ Glycerin/ Electrolytes 1,000 ml @ 80 mls/hr [id number] 02/07/19 08:30 02/08/19 17:18 DC 02/08/19 11:27 80 MLS/HR Aspirin (Aspirin) 150 mg DAILY 02/08/19 11:30 02/11/19 13:33 DC 02/11/19 12:06 150 MG Aspirin (Chase Aspirin) 325 mg [id number] 02/12/19 08:00 02/14/19 08:42 325 MG Aspirin (Children'S Aspirin) 81 mg [id number] 02/06/19 09:30 02/08/19 11:04 DC Atropine Sulfate (ATROPINE 0.5mg SYRINGE) 0.5 mg PRN Q5MIN PRN 02/06/19 13:30 Budesonide (Pulmicort) 0.5 mg RTBID 02/05/19 08:00 02/14/19 08:02 0.5 MG Calcium Gluconate (Calcium Gluconate) 1,000 mg 1X ONCE 02/04/19 16:00 02/04/19 16:01 DC 02/04/19 17:01 1,000 MG Cefepime HCl (Maxipime) 2 gm Q8HRS 02/10/19 11:00 02/14/19 06:16 2 GM Dexmedetomidine HCl 200 mcg/ Sodium Chloride 50 ml @ 0 mls/hr CONT PRN 02/06/19 13:30 02/09/19 08:58 13 MLS/HR Digoxin (Lanoxin) 125 mcg DAILY 02/09/19 15:00 02/11/19 13:33 DC 02/11/19 08:23 125 MCG Dopamine HCl/ Dextrose 250 ml @ As Directed STK-MED ONCE 02/04/19 17:25 02/04/19 17:26 DC Enoxaparin Sodium (Lovenox 40mg Syringe) 40 mg Q24H 02/09/19 16:00 02/13/19 16:51 40 MG Etomidate (Amidate) 20 mg 1X ONCE 02/04/19 16:45 02/04/19 16:46 DC 02/04/19 15:00 20 MG Famotidine (Pepcid Vial) 20 mg BID 02/09/19 21:00 02/14/19 08:43 20 MG Fentanyl Citrate 30 ml @ 0 mls/hr CONT PRN 02/08/19 13:00 UNV Fentanyl Citrate (Fentanyl 2ml Vial) 50 mcg PRN Q3HRS PRN 02/06/19 11:45 02/08/19 09:06 50 MCG Furosemide (Lasix) 40 mg 1X ONCE 02/13/19 09:15 02/13/19 09:16 DC 02/13/19 10:25 40 MG Gadobutrol (Gadavist) 6 mmol 1X ONCE 02/08/19 15:00 02/08/19 15:01 DC 02/08/19 15:12 6 MMOL Haloperidol Lactate (Haldol Inj) 2.5 mg 1X PRN PRN 02/06/19 16:30 UNV Heparin Sodium (Porcine) (Heparin Sodium) 3,250 unit PRN Q6HRS PRN 02/05/19 01:30 02/06/19 12:32 DC 02/05/19 22:31 3,250 UNIT Heparin Sodium/ Dextrose 500 ml @ 0 mls/hr CONT PRN 02/04/19 22:45 02/06/19 12:32 DC 02/06/19 01:53 50 MLS/HR Hydralazine HCl (Apresoline Inj) 10 mg PRN Q3HRS PRN 02/06/19 11:45 02/07/19 12:16 10 MG Info (Anti-Coagulation Monitoring By Pharmacy) 1 each PRN DAILY PRN 02/04/19 22:45 02/06/19 12:34 DC 02/06/19 07:57 1 EACH Levetiracetam 1000 mg/Dextrose 110 ml @ 440 mls/hr 1X ONCE 02/04/19 16:00 02/04/19 16:14 DC 02/04/19 16:54 440 MLS/HR Levetiracetam 500 mg/Dextrose 105 ml @ 420 mls/hr Q12HR 02/05/19 16:30 02/14/19 08:43 420 MLS/HR Lidocaine HCl (Lidocaine 1% 20ml Vial) 20 ml STK-MED ONCE 02/09/19 10:52 02/09/19 10:53 DC Lidocaine HCl (Lidocaine 2% Viscous) 100 ml STK-MED ONCE 02/09/19 10:52 02/09/19 10:53 DC Lorazepam (Ativan) 2 mg PRN Q1HR PRN 02/08/19 13:00 02/12/19 00:05 2 MG Magnesium Sulfate/ Dextrose 100 ml @ 100 mls/hr 1X ONCE 02/09/19 15:45 02/09/19 16:44 DC 02/09/19 15:57 100 MLS/HR Metoprolol Tartrate (Lopressor Vial) 5 mg PRN Q6HRS PRN 02/08/19 17:00 02/09/19 23:13 5 MG Metoprolol Tartrate (Lopressor) 25 mg Q6HRS 02/11/19 18:00 02/14/19 06:16 25 MG Midazolam HCl 100 ml @ 0 mls/hr CONT PRN 02/08/19 13:00 UNV Midazolam HCl (Versed) 2 mg 1X ONCE 02/04/19 17:45 02/04/19 17:46 DC Morphine Sulfate (Morphine Sulfate) 4 mg PRN Q1HR PRN 02/08/19 13:00 02/10/19 21:05 4 MG Multi-Ingred Cream/Lotion/Oil/ Oint (Artificial Tears Eye Ointment) 1 heriberto PRN Q1HR PRN 02/08/19 18:45 Naloxone HCl (Narcan) 2 mg 1X ONCE 02/04/19 16:45 02/04/19 16:46 DC 02/04/19 14:57 2 MG Nicotine (Nicoderm Cq 21mg) 1 patch DAILY 02/07/19 11:45 02/14/19 08:44 1 PATCH Norepinephrine Bitartrate 250 ml @ 1.875 mls/ hr CONT PRN 02/04/19 17:30 Piperacillin Sod/ Tazobactam Sod (Zosyn Per Pharmacy) 1 each PRN DAILY PRN 02/04/19 15:15 02/10/19 13:53 DC Piperacillin Sod/ Tazobactam Sod 3.375 gm/Sodium Chloride 50 ml @ 100 mls/hr Q6HRS 02/05/19 00:00 02/10/19 10:24 DC 02/10/19 05:12 100 MLS/HR Piperacillin Sod/ Tazobactam Sod 4.5 gm/Sodium Chloride 100 ml @ 200 mls/hr 1X ONCE 02/04/19 16:00 02/04/19 16:29 DC 02/04/19 15:33 200 MLS/HR Potassium Chloride/Water 50 ml @ 50 mls/hr 1X ONCE 02/06/19 12:00 02/06/19 12:59 DC 02/06/19 12:19 50 MLS/HR Potassium Chloride (KCl Oral Soln) 40 meq 1X ONCE 02/09/19 15:00 02/09/19 15:01 DC 02/09/19 14:49 40 MEQ Propofol 100 ml @ 0 mls/hr CONT PRN 02/08/19 13:00 UNV Propofol (Diprivan) 1,000 mg STK-MED ONCE 02/04/19 19:00 02/07/19 09:01 DC Rocuronium [place] (Zemuron) 100 mg 1X ONCE 02/04/19 16:45 02/04/19 16:46 DC 02/04/19 15:00 100 MG Sodium Bicarbonate (Sodium Bicarb Adult 8.4% Syr) 50 meq 1X ONCE 02/07/19 11:45 02/07/19 11:46 DC 02/07/19 12:16 50 MEQ Sodium Chloride 500 ml @ 500 mls/hr 1X PRN PRN 02/06/19 13:30 Vancomycin HCl (Vanco Per Pharmacy) 1 each PRN DAILY PRN 02/10/19 10:30 02/13/19 15:34 1 EACH Vancomycin HCl (Vancomycin Trough Level) 1 each 1X ONCE 02/14/19 11:30 02/14/19 11:31 Vancomycin HCl 1.5 gm/Sodium Chloride 500 ml @ 250 mls/hr Q8H 02/13/19 20:00 02/14/19 03:39 250 MLS/HR Vancomycin HCl 1.75 gm/Sodium Chloride 500 ml @ 250 mls/hr Q12H 02/12/19 00:00 02/13/19 14:00 DC 02/13/19 12:33 250 MLS/HR Vancomycin HCl 2 gm/Sodium Chloride 500 ml @ 250 mls/hr 1X ONCE 02/10/19 11:00 02/10/19 12:59 DC 02/10/19 11:23 250 MLS/HR Vecuronium [place] (Norcuron Bolus) 6 mg PRN Q2HR PRN 02/08/19 13:45 02/09/19 22:30 6 MG Labs: Lab Laboratory Tests Test 02/13/19 11:50 02/14/19 06:20 Vancomycin Level Trough 12.4 mcg/mL (10.0-20.0) Vancomycin Last Dose Date Unknown Vancomycin Last Dose Time Unknown Sodium Level 146 mmol/L (136-145) Potassium Level 3.0 mmol/L (3.5-5.1) Chloride Level 106 mmol/L (98-107) Carbon Dioxide Level 34 mmol/L (21-32) Anion Gap 6 (6-14) Blood Urea Nitrogen 17 mg/dL (8-26) Creatinine 0.5 mg/dL (0.7-1.3) Estimated GFR (Cockcroft-Gault) 169.6 Glucose Level 116 mg/dL (70-99) Calcium Level 8.5 mg/dL (8.5-10.1) Objective: Assessment: Sepsis with hypotension, POA, ?? likely had dehydration and too much pain meds. off pressers. Procalcitonin 0.11 Fever,,,? line infection. bains cultures NGTD Suspect aspiration Postsurgical spine infection with epidural abscess, s/p I and D on 12/30/18. ENTEROCOCCUS ampS,,,was undergoing TX with ampicillin at [facility]. Completed 6 weeks treatment on 02/10. -Original back surgery was done on 12/09/2018. (microdiscectomy with decompression of the left L4 and L5 nerve roots). -recent ESR up to 76 -Lumbar spine MRI on 02/08 concerning for discitis/osteo at L4-5; considered usual findings after treatment Acute respiratory failure s/p re-intubation,,02/08 electively for MRI. s/p bronchoscopy 02/09. cultures no growth Acute encephalopathy NSTEMI AL,,,improved Shock liver Myoclonic movements, on Keppra Hypertension. Atrial fibrillation. Obstructive sleep apnea. Morbid obesity. Chronic obstructive pulmonary disease. RUE swelling. US showed a 7.6 x 1.5 x 2.1 cm heterogeneous echogenicity identified lateral to the axillary the region in the soft tissue; -f/u US showed complex fluid collection measuring 2.3 cm x 0.8 cm x 7.4 cm. indeterminate significance. Plan: Plan of Care Continue vanc, cefepime, acyclovir (abx changed on 02/10) Previously on Zosyn, ampicillin ( before admission) last Trough 10.0 Cultures NGTD Monitor labs/VS/temp Supportive care MRI lumbar noted, this is expected finding do not believe recent spine infection is playing any role in current illness PICC to be removed,,,awaiting [place] or anesthesia for IV access will get IR to drain the fluid rt axilla,unchanged, ? hematoma d/w nursing ASHLEY JONES MD Feb 14, 2019 09:21
--- NOTE | 2019-02-14 09:24 | PDOC ---
PULMONARY PROGRESS NOTES Subjective extubated 02/06, re-intubated 02/08 OFF SEDATION FOLLOW COMMANDS Vitals Vital Signs Date Time Temp Pulse Resp B/P (MAP) Pulse Ox O2 Delivery O2 Flow Rate FiO2 02/14/19 08:12 100 3.0 02/14/19 08:00 Ventilator 02/14/19 06:16 91 107/61 02/14/19 06:00 21 02/14/19 04:00 99.0 99.0 Comments r Lungs: Clear, Other (decrease bs) Cardiovascular: S1, S2 Abdomen: Soft, Non-tender Neuro Exam: Alert Skin: Warm, Cool (feet) Labs Laboratory Tests Test 02/12/19 17:30 02/13/19 08:15 02/13/19 08:20 02/13/19 11:50 Urine Collection Type Unknown Urine Color Yellow Urine Clarity Clear Urine pH 5.5 Urine Specific [place] <=1.005 Urine Protein Negative mg/dL (NEG-TRACE) Urine Glucose (UA) Negative mg/dL (NEG) Urine Ketones (Stick) Negative mg/dL (NEG) Urine Blood Negative (NEG) Urine Nitrite Negative (NEG) Urine Bilirubin Negative (NEG) Urine Urobilinogen Dipstick 0.2 mg/dL (0.2 mg/dL) Urine Leukocyte Esterase Negative (NEG) Urine RBC 1-2 /HPF (0-2) Urine WBC 0 /HPF (0-4) Urine Bacteria 0 /HPF (0-FEW) O2 Saturation 94 % (92-99) Arterial Blood pH 7.42 (7.35-7.45) Arterial Blood pCO2 at Patient Temp 47 mmHg (35-46) Arterial Blood pO2 at Patient Temp 76 mmHg (65-108) Arterial Blood HCO3 30 mmol/L (21-28) Arterial Blood Base Excess 5 mmol/L (-3-3) FiO2 50 White Blood Count 7.8 x10^3/uL (4.0-11.0) Red Blood Count 3.00 x10^6/uL (4.30-5.70) Hemoglobin 9.0 g/dL (13.0-17.5) Hematocrit 28.0 % (39.0-53.0) Mean Corpuscular Volume 93 fL (79-100) Mean Corpuscular Hemoglobin 30 pg (25-35) Mean Corpuscular Hemoglobin Concent 32 g/dL (31-37) Red Cell Distribution Width 14.3 % (11.5-14.5) Platelet Count 341 x10^3/uL (140-400) Neutrophils (%) (Auto) 59 % (31-73) Lymphocytes (%) (Auto) 12 % (24-48) Monocytes (%) (Auto) 13 % (0-9) Eosinophils (%) (Auto) 15 % (0-3) Basophils (%) (Auto) 1 % (0-3) Neutrophils # (Auto) 4.6 x10^3uL (1.8-7.7) Lymphocytes # (Auto) 1.0 x10^3/uL (1.0-4.8) Monocytes # (Auto) 1.0 x10^3/uL (0.0-1.1) Eosinophils # (Auto) 1.1 x10^3/uL (0.0-0.7) Basophils # (Auto) 0.1 x10^3/uL (0.0-0.2) Sodium Level 144 mmol/L (136-145) Potassium Level 3.5 mmol/L (3.5-5.1) Chloride Level 106 mmol/L (98-107) Carbon Dioxide Level 34 mmol/L (21-32) Anion Gap 4 (6-14) Blood Urea Nitrogen 14 mg/dL (8-26) Creatinine 0.6 mg/dL (0.7-1.3) Estimated GFR (Cockcroft-Gault) 137.4 Glucose Level 123 mg/dL (70-99) Calcium Level 8.5 mg/dL (8.5-10.1) Vancomycin Level Trough 12.4 mcg/mL (10.0-20.0) Vancomycin Last Dose Date Unknown Vancomycin Last Dose Time Unknown Test 02/14/19 06:20 02/14/19 08:50 Sodium Level 146 mmol/L (136-145) Potassium Level 3.0 mmol/L (3.5-5.1) Chloride Level 106 mmol/L (98-107) Carbon Dioxide Level 34 mmol/L (21-32) Anion Gap 6 (6-14) Blood Urea Nitrogen 17 mg/dL (8-26) Creatinine 0.5 mg/dL (0.7-1.3) Estimated GFR (Cockcroft-Gault) 169.6 Glucose Level 116 mg/dL (70-99) Calcium Level 8.5 mg/dL (8.5-10.1) O2 Saturation 92 % (92-99) Arterial Blood pH 7.42 (7.35-7.45) Arterial Blood pCO2 at Patient Temp 47 mmHg (35-46) Arterial Blood pO2 at Patient Temp 67 mmHg (65-108) Arterial Blood HCO3 30 mmol/L (21-28) Arterial Blood Base Excess 4 mmol/L (-3-3) FiO2 50 Laboratory Tests Test 02/13/19 11:50 02/14/19 06:20 02/14/19 08:50 Vancomycin Level Trough 12.4 mcg/mL (10.0-20.0) Vancomycin Last Dose Date Unknown Vancomycin Last Dose Time Unknown Sodium Level 146 mmol/L (136-145) Potassium Level 3.0 mmol/L (3.5-5.1) Chloride Level 106 mmol/L (98-107) Carbon Dioxide Level 34 mmol/L (21-32) Anion Gap 6 (6-14) Blood Urea Nitrogen 17 mg/dL (8-26) Creatinine 0.5 mg/dL (0.7-1.3) Estimated GFR (Cockcroft-Gault) 169.6 Glucose Level 116 mg/dL (70-99) Calcium Level 8.5 mg/dL (8.5-10.1) O2 Saturation 92 % (92-99) Arterial Blood pH 7.42 (7.35-7.45) Arterial Blood pCO2 at Patient Temp 47 mmHg (35-46) Arterial Blood pO2 at Patient Temp 67 mmHg (65-108) Arterial Blood HCO3 30 mmol/L (21-28) Arterial Blood Base Excess 4 mmol/L (-3-3) FiO2 50 Medications Active Scripts Medications Dose Route/Sig Max Daily Dose Days Date Category Unasyn 3 Gm Vial (Ampicillin Sodium/Sulbactam Na) 3 Gm Vial 2 Gm IV Q4HRS 45 01/05/19 Rx Oxycodone Hcl Immed.release (Oxycodone Hcl) 5 Mg Tablet 10 Mg PO PRN Q4HRS PRN 01/04/19 Rx Oxycontin (Oxycodone HCl) 15 Mg Tab.er.12h 15 Mg PO Q12HR 01/04/19 Rx Colace (Docusate Sodium) 100 Mg Capsule 100 Mg PO BID 30 12/09/18 Rx Hydrochlorothiazide Capsule (Hydrochlorothiazide) 12.5 Mg Capsule 25 Mg PO DAILY 11/29/18 Reported Proair Hfa Inhaler (Albuterol Sulfate) 8.5 Gm Hfa.aer.ad 2 Puff INH PRN Q6HRS PRN 11/29/18 Reported Albuterol Sulfate Neb Soln (Albuterol Sulfate) 2.5 Mg/3 Ml Vial.neb 2.5 Mg NEB PRN Q4-6HRS PRN 11/29/18 Reported Ipratropium [place] 0.2 Mg/1 Ml Solution 0.2 Mg IH PRN Q4-6HRS PRN 11/29/18 Reported Zoloft (Sertraline Hcl) 100 Mg Tablet 1 Tab PO DAILY 11/04/18 Reported Robaxin (Methocarbamol) 500 Mg Tablet 500 Mg PO QID PRN 11/04/18 Reported Azelastine Hcl 6 Ml Drops 1 Drop EACHEYE PRN DAILY PRN 11/04/18 Reported Lisinopril 10 Mg Tablet 10 Mg PO DAILY 08/12/17 Reported Lasix (Furosemide) 20 Mg Tablet 20 Mg PO DAILY 08/12/17 Reported Tamsulosin Hcl 0.4 Mg Cap.er.24h 0.4 Mg PO DAILY 08/12/17 Reported Montelukast Sodium Tablet (Montelukast Sodium) 10 Mg Tablet 10 Mg PO HS 08/12/17 Reported Metoprolol Tartrate 25 Mg Tablet 25 Mg PO BID 07/11/16 Rx Omeprazole 20 Mg Capsule.dr 20 Mg PO DAILY 07/09/16 Reported Topiramate 50 Mg Tablet 1 Tab PO BID 07/09/16 Reported Daliresp (Roflumilast) 500 Mcg Tablet 500 Mcg PO DAILY 07/09/16 Reported Comments NO CHANGE ON CXR Impression . 1. Acute respiratory failure, multifactorial in etiology. Re- Intubated 02/08 2. ENCEPHALOPATHY IMPROVING 3. Acute kidney injury 4. Elevated troponin, non-ST elevation myocardial infarction. 5. Atrial fibrillation with rapid ventricular response, now rate controlled. 6. Hyperkalemia. resolved 7. Status post back surgery, epidural abscess, incision and drainage, on antibiotic. no extension to brain on MRI 8. Chronic obstructive pulmonary disease. 9. Acute diastolic congestive heart failure. 10. sepsis, ? aspiration, s/p Bronch. no purulent secretions, cultures neg 11. Obstructive sleep apnea-hypopnea syndrome. 12. elevated LFTs improving/ shock liver, improving Plan . PT MORE AWAKE AND ALERT OFF SEDTION AT BEDSIDE WILL PROCEED WITH TRIAL AND POSSIBLE EXTUBATION 1. AC mode 2. monitor resp status 3. bronchodilator. 4. Bronch done , cultures Neg 5. Pepcid for stress ulcer prophylaxis. 6. Monitor renal function 7. antibx per ID 8. d/w RN 9. Cardiology rec SHAKA PRIETO MD Feb 14, 2019 09:24
--- NOTE | 2019-02-14 11:39 | RAD ---
CHEST AP ONLY Clinical Indication: POST LINE PLACEMENT Comparison: AP chest, same day 0725 hours. Findings: Bilateral angles are excluded. There is new right IJ central line, tip in distal SVC. Stable right PICC, tip in mid SVC. Endotracheal tube tip at the level of the aortic arch. Enteric tube courses below the diaphragm outside of [id number]. Cardiac silhouette is enlarged, unchanged. Moderate pulmonary vascular congestion is unchanged. There is no pneumothorax. There are layering bilateral pleural effusions. Old left rib fractures. IMPRESSION: 1. Right IJ central line, tip in distal SVC. 2. Unchanged pulmonary vascular congestion, bibasilar airspace disease, and bilateral pleural effusions. Electronically signed by: Chucho Devlin MD (02/14/2019 11:36 AM) [id number]
[2019-02-14] MEDS: ACETAMINOPHEN 650 MG/20.3 ML SOLUTION. NG PRN (11:58)
[2019-02-14 12:13] LABS: VANC TR 19.6 mcg/mL (10.0-20.0)
[2019-02-14 12:44] LABS: BASE EXCESS ABG 5 mmol/L (-3-3); HCO3 ABG 30 mmol/L (21-28); PCO2 ABG 44 mmHg (35-46); PO2 ABG 82 mmHg (65-108); SAT O2 ABG 95 % (92-99)
--- NOTE | 2019-02-14 13:05 | RAD ---
Procedure: Ultrasound-guided placement of right internal jugular central venous catheter02/14/2019 1:01 PM Clinical Indication: PICC infected need line Discussion: The risks and benefits of the procedure were discussed the patient and/or their fraud representative. Informed consent was obtained. A timeout procedure was performed. All elements of maximal sterile barrier technique including the use of a cap, mask, sterile gown, sterile gloves, large sterile sheet, appropriate hand hygiene, and 2% chlorhexidine for cutaneous antisepsis (or acceptable alternative antiseptic per current guidelines) were followed for this procedure. The patient was prepped and draped in the usual sterile fashion. Ultrasound interrogation of the right neck revealed patency and compressibility of the right internal jugular vein. A 21-gauge micropuncture was then used to gain access to this vein under ultrasound guidance. A hard copy ultrasound image was recorded. A guidewire was advanced centrally. 5 Romanian sheath was placed. Over a wire following dilatation, a triple-lumen central venous catheter was advanced centrally. Catheter was found to flush and aspirate normally. Follow-up chest radiograph demonstrates tip at the cavoatrial junction. Catheter secured in place and a sterile dressing was applied. No immediate complications were identified. Impression: Successful ultrasound-guided placement of right internal jugular triple-lumen central venous catheter
[2019-02-14 13:17] LABS: FIO2 ABG 50% ps
[2019-02-14] MEDS: VANCOMYCIN PER PHARMACY MC PRN (13:21)
--- NOTE | 2019-02-14 13:47 | PDOC ---
PROGRESS NOTES Assessment Assessment IMPRESSION: Metabolic encephalopathy. Respiratory failure. Pleural effusion. Seizure. Discitis/osteomyelitis L4-5. AFib. ADILENE. COPD. CHF. Right UE fluid collection. Obesity. No evidence of acute CVA this time. RECOMMENDATIONS/PLAN: Continue medical and ID treatment. Continue Keppra 500 mg bid. OT/PT. Past Medical History Cardiovascular: AFIB, HTN Pulmonary: COPD, Other CENTRAL NERVOUS SYSTEM: Other GI: GERD Heme/Onc: Cancer Hepatobiliary: No pertinent hx Psych: Anxiety, Depression Musculoskeletal: low back pain, Osteoarthritis Rheumatologic: No pertinent hx Infectious disease: No pertinent hx Renal/: Benign prostatic enlarg. Endocrine: No pertinent hx Past Surgical History Hernia Repair, Colectomy, Other Family History Diabetes, Heart Disease Social History ALCOHOL: Occasional Drugs: None Lives: with Family ALLERGY: NKDA MEDICATIONS: Refer to [facility] REVIEW OF SYSTEMS: Constitutional: Obesity. Head: No recent traumatic brain or head injury. Skin: No edema, or rash. Ear: No infection, tinnitus. Eyes: No vision loss, or diplopia. Nose: No bleeding or purulent discharges. Hearing: No hearing decrease. Neck: No injury. Cardiac: CHF, AFib Pulmonary: CPOD. GI: No GI Ulcer, GI bleeding Urinary/genital: No dysuria, incontinence, urinary retention. Endocrine: Obesity. Skeletomuscular: back pain. Neurological: see HP. Psychiatric: Denies drug use/abuse. Otherwise, not [id number] review of systems. PHYSICAL EXAMINATION: General appearance in subacute distress. HEENT: Normocephalic and nontraumatic. Eyes, nose, ears, and throat are unremarkable. Neck is supple. No lymphadenopathy. No Crepitus. Cardiovascular: S1, S2. Pulmonary: On vent. Abdomen: Bowel sounds are positive. Extremities: Edema. No restriction of range of motion NEUROLOGICAL EXAMINATION: Eyes open form time to time. Able to understand some questions. Not fully oriented to time, place but knew person. PERRL. EOMI. CN: no focal findings. Muscle tone: Mildly decreased. Muscle strength: Moves all extremities. DTR: 1 Plantar reflex: Flexor response bilaterally Gait: not examined in bed. Sensory exam: no acute abnormal findings. No cerebellar signs elicited. F-T-N test not performed due to not able to perform the test. Objective Objective Vital Signs Date Time Temp Pulse Resp B/P (MAP) Pulse Ox O2 Delivery O2 Flow Rate FiO2 02/14/19 13:26 97 Nasal Cannula 6.0 02/14/19 11:58 101 152/83 02/14/19 10:00 28 02/14/19 08:00 99.0 99.0 Intake and Output 02/14/19 06:59 Intake Total 3379 ml Output Total 3405 ml Balance -26 ml IV Total 1713 ml Tube Feeding 1290 ml Other 376 ml Output Urine Total 3405 ml Vitals Signs Vitals VS - Last 72 Hours, by Label Date Time Temp Pulse Resp B/P (MAP) Pulse Ox O2 Delivery O2 Flow Rate FiO2 02/14/19 13:26 97 Nasal Cannula 6.0 02/14/19 12:14 98 Ventilator 02/14/19 11:58 101 152/83 02/14/19 10:00 106 28 153/75 (101) 97 Ventilator 02/14/19 09:00 102 25 135/70 (91) 97 Ventilator 02/14/19 08:42 97 3.0 02/14/19 08:12 100 3.0 02/14/19 08:00 97 Ventilator 02/14/19 08:00 99.0 94 23 137/85 (102) 97 Ventilator 99.0 02/14/19 08:00 Mechanical Ventilator 02/14/19 07:00 92 23 108/71 (83) 97 Ventilator 02/14/19 06:16 91 107/61 02/14/19 06:00 92 21 107/61 (76) 100 Ventilator 02/14/19 05:55 100 Ventilator 02/14/19 05:00 86 21 102/70 (81) 100 Ventilator 02/14/19 04:19 100 Ventilator 02/14/19 04:00 99.0 91 23 106/71 (83) 99 Ventilator 99.0 02/14/19 04:00 Mechanical Ventilator 02/14/19 03:00 80 21 114/71 (85) 100 Ventilator 02/14/19 02:00 78 21 139/68 (91) 100 Ventilator 02/14/19 01:57 Ventilator 02/14/19 01:27 100 Ventilator 02/14/19 01:16 100 Ventilator 02/14/19 01:15 95 139/76 02/14/19 01:00 78 21 139/76 (97) 100 Ventilator 02/14/19 00:01 99.1 76 23 124/72 (89) 99 Ventilator 99.1 02/14/19 00:00 Mechanical Ventilator 02/13/19 23:29 100 Ventilator 02/13/19 23:00 78 21 148/93 (111) 100 Ventilator 02/13/19 22:00 78 21 131/75 (93) 100 Ventilator 02/13/19 21:10 100 3.0 02/13/19 21:00 86 21 124/65 (84) 100 Ventilator 02/13/19 20:15 100 Ventilator 02/13/19 20:14 100 Ventilator 02/13/19 20:00 100.0 80 23 142/81 (101) 99 Ventilator 100.0 02/13/19 20:00 Mechanical Ventilator 02/13/19 19:00 84 23 154/85 (108) 99 Ventilator 02/13/19 18:25 94 148/79 02/13/19 18:00 87 23 148/79 (102) 90 Ventilator 02/13/19 17:30 22 02/13/19 17:02 100 Ventilator 02/13/19 17:01 18 100 Ventilator 02/13/19 17:00 88 23 143/64 (90) 84 Ventilator 02/13/19 16:15 98 Ventilator 02/13/19 16:00 99.3 78 23 133/60 (84) 98 Ventilator 99.3 02/13/19 16:00 Mechanical Ventilator 02/13/19 15:00 82 21 157/79 (105) 100 Ventilator 02/13/19 14:00 86 18 134/67 (89) 100 Ventilator 02/13/19 13:47 100 Ventilator 02/13/19 13:00 99.6 78 18 132/68 (89) 100 Ventilator 99.6 02/13/19 12:33 98 169/99 02/13/19 12:00 Mechanical Ventilator 02/13/19 12:00 89 18 152/64 (93) 99 Ventilator 02/13/19 11:51 96 Ventilator 02/13/19 11:00 99 18 164/87 (112) 99 Ventilator 02/13/19 10:53 21 97 Ventilator 02/13/19 10:00 108 18 145/81 (102) 99 Ventilator 02/13/19 09:00 76 18 133/77 (95) 99 Ventilator 02/13/19 08:56 98 Ventilator 02/13/19 08:08 100 Ventilator 02/13/19 08:00 98.8 76 18 105/67 (80) 99 Ventilator 98.8 02/13/19 07:00 79 18 101/46 (64) 98 Ventilator Laboratory Laboratory Laboratory Tests Test 02/14/19 06:20 02/14/19 08:50 02/14/19 11:50 02/14/19 12:39 Sodium Level 146 mmol/L (136-145) Potassium Level 3.0 mmol/L (3.5-5.1) Chloride Level 106 mmol/L (98-107) Carbon Dioxide Level 34 mmol/L (21-32) Anion Gap 6 (6-14) Blood Urea Nitrogen 17 mg/dL (8-26) Creatinine 0.5 mg/dL (0.7-1.3) Estimated GFR (Cockcroft-Gault) 169.6 Glucose Level 116 mg/dL (70-99) Calcium Level 8.5 mg/dL (8.5-10.1) O2 Saturation 92 % (92-99) 95 % (92-99) Arterial Blood pH 7.42 (7.35-7.45) 7.45 (7.35-7.45) Arterial Blood pCO2 at Patient Temp 47 mmHg (35-46) 44 mmHg (35-46) Arterial Blood pO2 at Patient Temp 67 mmHg (65-108) 82 mmHg (65-108) Arterial Blood HCO3 30 mmol/L (21-28) 30 mmol/L (21-28) Arterial Blood Base Excess 4 mmol/L (-3-3) 5 mmol/L (-3-3) FiO2 50 50% ps Vancomycin Level Trough 19.6 mcg/mL (10.0-20.0) Vancomycin Last Dose Date 02/14/19 Vancomycin Last Dose Time 0400 Microbiology 02/12/19 Blood Culture - Preliminary, Resulted NO GROWTH AFTER 2 DAYS 02/09/19 - Final, Complete Medication Medications Current Medications Vancomycin HCl (Vancomycin Trough Level) 1 each 1X ONCE MC Last administered on 02/14/19at 11:30; Start 02/14/19 at 11:30; Stop 02/14/19 at 11:31; Status DC Vancomycin HCl 1.5 gm/Sodium Chloride 500 ml @ 250 mls/hr Q12H IV ; Start 02/13 at 20:00; Stop 02/13/19 at 20:00; Status DC Vancomycin HCl 1.5 gm/Sodium Chloride 500 ml @ 250 mls/hr Q8H IV Last administered on 02/14/19at 12:15; Start 02/13/19 at 20:00 Comment Review of Relevant I have reviewed the following items valerie (where applicable) has been applied. LIZANDRO ROSENBERG MD Feb 14, 2019 13:47
--- NOTE | 2019-02-14 17:19 | PDOC ---
ICU PROGRESS NOTES Subjective Extubated, talkative, moving in bed without back pain, diuresed 3+ liters yesterday but still edematous, PICC out, right subclavian in place, tube feeding off as OG tube out, needing swallowing eval before eating, monitor still showing Afib but rate controlled Objective Objective talkative lungs clear anteriorly, no JVD spout positioner - afib, rate controlled abd obese but soft and non distended, active bowel sounds present feet warm, edema hands Stratton in place with excellent output Vitals Vital Signs Date Time Temp Pulse Resp B/P (MAP) Pulse Ox O2 Delivery O2 Flow Rate FiO2 02/14/19 16:00 Nasal Cannula 5.0 02/14/19 15:11 91 02/14/19 15:00 109 26 155/87 (109) 02/14/19 12:00 99.7 99.7 Input & Output Intake and Output 02/14/19 07:00 Intake Total 3379 ml Output Total 3385 ml Balance -6 ml IV Total 1713 ml Tube Feeding 1290 ml Other 376 ml Output Urine Total 3385 ml Ventilator Settings O2 Flow Rate: 6.0 Oxygen Delivery Device: Nasal Cannula O2 Humdified: HME Temperature (97-99 F): Yes FiO2: 50 SpO2: 91 DVT Prophylaxis DVT Prophylaxis yes, heparin Stress Ulcer Prophylaxis Stress Ulcer Prophylaxis yes Imaging Imaging noted Labs Labs noted Medications Medications Current Medications Vancomycin HCl (Vancomycin Trough Level) 1 each 1X ONCE MC Last administered on 02/14/19at 11:30; Start 02/14/19 at 11:30; Stop 02/14/19 at 11:31; Status DC Vancomycin HCl 1.5 gm/Sodium Chloride 500 ml @ 250 mls/hr Q12H IV ; Start 02/13 at 20:00; Stop 02/13/19 at 20:00; Status DC Vancomycin HCl 1.5 gm/Sodium Chloride 500 ml @ 250 mls/hr Q8H IV Last administered on 02/14/19at 12:15; Start 02/13/19 at 20:00 Physical Exam ROS: No Nausea, No Chest Pain, No Abdominal Pain General: Alert Lungs: Clear, Other (decrease bs) Cardiovascular: S1, S2 Abdomen: Soft, Non-tender Skin: Warm, Cool (feet) Neuro Exam: Alert Impression . acute respiratory failure - presumed aspiration with pneumonia NSTEMI acute encephalopathy - possibly infectious likely aspiration pneumonitis , 02/13 CXR showing increased right basilar infiltrate which is likely source of his fever shock liver COPD recent spinal abscess s/p lumbar lami but sed rate had returned to normal [employer] and he was nearly finished with 45 day course of antibiotics, MRI suggests discitis/osteomyelitis at L4-5 but now determined to be routine healing acute flare of lumbar back pain last week without injury requiring an increase in pain meds for control obesity ADILENE hx of alcoholism constipation fever Plan . s/p code blue - bag and mask, mechanical ventilation x 48 hrs, then off 48 hrs then reintubated 02/08, extubated 02/14/19 acute respiratory failure - improved, presumed aspiration - continue antibiotics NSTEMI - cardiology following acute encephalopathy - improving, LP not done as determined to not be necessary likely aspiration pneumonitis - continue antibiotics shock liver - resolved - monitor COPD - continue neb treatments recent spinal abscess s/p lumbar lami but sed rate had returned to normal [employer] and he was nearly finished with 45 day course of antibiotics, rechecked sed rate , consulted Dr. Boyd who did not feel MRI findings were significant to current case acute flare of lumbar back pain last week without injury requiring an increase in pain meds for control - MRI L-spine did not show acute cause - pain now controlled obesity ADILENE hx of alcoholism - I am unaware of him drinking alcohol while at [facility] and admission alcohol level was undetectable anemia - stable AL - he was taking unprescribed NSAIDS, osteoBiflex gummies from home at [facility] for pain Afib/RVR - rate controlled with meds constipation per [facility] imaging - bowels moving fever - cultures repeated, PICC replaced with central line edema - lasix helped and he has diuresed 8 liters past 2 days Roseann JAY MD Feb 14, 2019 17:19
[2019-02-14] MEDS ORDERED: POTASSIUM CHL 20MEQ PREMIX 50 ML IV ONE (17:30)
[2019-02-14] MEDS: ENOXAPARIN 40 MG/0.4 ML SYRINGE. SQ SCH (17:38)
[2019-02-14] MEDS: METOPROLOL TARTRATE 5 MG/5 ML VIAL. IVP PRN ×2 (18:29→23:36)
[2019-02-15] VITALS (21 sets, daily range): BP systolic 152–190; BP diastolic 72–107
[2019-02-15] MEDS: VANCOMYCIN 1.5 GM in IV NORMAL SALINE 500ML BAG 500 ML IV SCH ×3 (03:55→19:36)
[2019-02-15] MEDS ORDERED: IPRATRPIUM/ALBUTEROL 0.5/2.5MG 3 ML NEBU. NEB ONE (05:30)
[2019-02-15] MEDS: CEFEPIME HCL IV Push 2 GM VIAL. IVP SCH ×3 (05:53→21:15)
[2019-02-15] MEDS: ACYCLOVIR SODIUM IV SCH ×3 (05:53→20:29)
[2019-02-15] MEDS: METOPROLOL TARTRATE 5 MG/5 ML VIAL. IVP PRN ×3 (05:53→23:23)
[2019-02-15] MEDS: DEXTROSE 5% IV SCH ×3 (05:53→20:29)
[2019-02-15] MEDS: METOPROLOL TART IMMED RELEASE 25 MG TABLET. PO SCH ×4 (05:59→23:25)
[2019-02-15 06:00] LABS: BASO # 0.1 x10^3/uL (0.0-0.2); BASO % 1 % (0-3); EOS # 0.2 x10^3/uL (0.0-0.7); EOS % 2 % (0-3); HEMATOCRIT 27.3 % (39.0-53.0); HEMOGLOBIN 8.9 g/dL (13.0-17.5); LYMPH # 0.9 x10^3/uL (1.0-4.8); LYMPH % 10 % (24-48); MEAN CORPUSCULAR HEMOGLOBIN 31 pg (25-35); MEAN CORPUSCULAR HGB CONC 33 g/dL (31-37); MEAN CORPUSCULAR VOLUME 94 fL (79-100); MONO # 0.9 x10^3/uL (0.0-1.1); MONO % 10 % (0-9); NEUT % 78 % (31-73); PLATELET COUNT 413 x10^3/uL (140-400); RED BLOOD COUNT 2.91 x10^6/uL (4.30-5.70); RED CELL DISTRIBUTION WIDTH 14.4 % (11.5-14.5)
[2019-02-15] MEDS: hydrALAZINE 20 MG/ML VIAL. IVP PRN ×3 (06:03→22:09)
[2019-02-15 06:29] LABS: ALBUMIN 2.6 g/dL (3.4-5.0); ALBUMIN/GLOBULIN RATIO 0.6 (1.0-1.7); CREATININE 0.6 mg/dL (0.7-1.3); GFR 137.4; POTASSIUM 3.1 mmol/L (3.5-5.1); TOTAL BILIRUBIN 0.5 mg/dL (0.2-1.0); TOTAL PROTEIN 6.8 g/dL (6.4-8.2)
[2019-02-15] MEDS: IPRATRPIUM/ALBUTEROL 0.5/2.5MG 3 ML NEBU. NEB SCH ×4 (07:38→19:37)
[2019-02-15] MEDS: BUDESONIDE 0.5 MG/2 ML NEBU. NEB SCH ×2 (07:38→19:37)
[2019-02-15] MEDS: ASPIRIN 325 MG TABLET PO SCH (08:00)
--- NOTE | 2019-02-15 08:15 | RAD ---
Chest radiograph 02/15/2019 6:42 AM INDICATION: Shortness of breath COMPARISON: February 14, 2019 TECHNIQUE: Portable upright frontal view of the chest is provided. FINDINGS: The cardiomediastinal silhouette is similar in appearance. Costophrenic angles are excluded on this radiograph. There are persistent bilateral pleural effusions with adjacent compressive atelectasis. There is persistent moderate pulmonary vascular congestion. Interval extubation and removal of nasogastric tube. Right IJ central venous catheter is in similar position. No pneumothorax. IMPRESSION: Given limitations, there is similar aeration of lungs compared to prior examination. Interval extubation and removal of nasogastric tube. No pneumothorax. Electronically signed by: Tori Torres MD (02/15/2019 8:10 AM) [id number]
--- NOTE | 2019-02-15 08:18 | PDOC ---
Infectious Disease Note Subjective: Subjective Pt more alert and responsive this am extubated on bipap denies any pain Fever pattern improved, ROS: ROS D/W RN. Vital Signs: Vital Signs Vital Signs Date Time Temp Pulse Resp B/P (MAP) Pulse Ox O2 Delivery O2 Flow Rate FiO2 02/15/19 07:35 98 BiPAP/CPAP 02/15/19 06:03 85 179/94 02/15/19 06:00 26 02/15/19 05:20 5.0 02/15/19 04:00 99.5 99.5 Physical Exam: PHYSICAL EXAM GENERAL: alert awake on bipap HEENT: Pupils equal,anicteric LUNGS: Diminished aeration. HEART: S1 and S2. ABDOMEN: Obese, soft. No grimace or guarding to palpation, with bowel sounds present. GENITOURINARY: Stratton in place. EXTREMITIES: Generalized edema,,No cyanosis. SKIN: Warm, without rash. NEUROLOGIC: sedated on vent Central line in place 02/14 Medications: Inpatient Meds: Current Medications Medications (Trade) Dose Ordered Sig/Sheryl Start Time Stop Time Status Last Admin Dose Admin Acetaminophen (Tylenol) 650 mg PRN Q6HRS PRN 02/10/19 17:00 02/14/19 11:58 650 MG Acyclovir Sodium 820 mg/Dextrose 116.4 ml @ 116.4 mls/ hr Q8HRS 02/10/19 12:00 02/15/19 05:53 116.4 MLS/HR Albuterol Sulfate (Ventolin Neb Soln) 2.5 mg 1X ONCE 02/07/19 02:15 02/07/19 02:16 DC 02/07/19 02:13 2.5 MG Albuterol/ Ipratropium (Duoneb) 3 ml 1X ONCE 02/15/19 05:30 02/15/19 05:31 DC 02/15/19 05:27 3 ML Amino Acids/ Glycerin/ Electrolytes 1,000 ml @ 80 mls/hr [id number] 02/07/19 08:30 02/08/19 17:18 DC 02/08/19 11:27 80 MLS/HR Aspirin (Aspirin) 150 mg DAILY 02/08/19 11:30 02/11/19 13:33 DC 02/11/19 12:06 150 MG Aspirin (Chase Aspirin) 325 mg [id number] 02/12/19 08:00 02/14/19 08:42 325 MG Aspirin (Children'S Aspirin) 81 mg [id number] 02/06/19 09:30 02/08/19 11:04 DC Atropine Sulfate (ATROPINE 0.5mg SYRINGE) 0.5 mg PRN Q5MIN PRN 02/06/19 13:30 Budesonide (Pulmicort) 0.5 mg RTBID 02/05/19 08:00 02/15/19 07:38 0.5 MG Calcium Gluconate (Calcium Gluconate) 1,000 mg 1X ONCE 02/04/19 16:00 02/04/19 16:01 DC 02/04/19 17:01 1,000 MG Cefepime HCl (Maxipime) 2 gm Q8HRS 02/10/19 11:00 02/15/19 05:53 2 GM Dexmedetomidine HCl 200 mcg/ Sodium Chloride 50 ml @ 0 mls/hr CONT PRN 02/06/19 13:30 02/14/19 13:23 DC 02/09/19 08:58 13 MLS/HR Digoxin (Lanoxin) 125 mcg DAILY 02/09/19 15:00 02/11/19 13:33 DC 02/11/19 08:23 125 MCG Dopamine HCl/ Dextrose 250 ml @ As Directed STK-MED ONCE 02/04/19 17:25 02/04/19 17:26 DC Enoxaparin Sodium (Lovenox 40mg Syringe) 40 mg Q24H 02/09/19 16:00 02/14/19 17:38 40 MG Etomidate (Amidate) 20 mg 1X ONCE 02/04/19 16:45 02/04/19 16:46 DC 02/04/19 15:00 20 MG Famotidine (Pepcid Vial) 20 mg BID 02/09/19 21:00 02/14/19 20:49 20 MG Fentanyl Citrate 30 ml @ 0 mls/hr CONT PRN 02/08/19 13:00 UNV Fentanyl Citrate (Fentanyl 2ml Vial) 50 mcg PRN Q3HRS PRN 02/06/19 11:45 02/08/19 09:06 50 MCG Furosemide (Lasix) 40 mg 1X ONCE 02/13/19 09:15 02/13/19 09:16 DC 02/13/19 10:25 40 MG Gadobutrol (Gadavist) 6 mmol 1X ONCE 02/08/19 15:00 02/08/19 15:01 DC 02/08/19 15:12 6 MMOL Haloperidol Lactate (Haldol Inj) 2.5 mg 1X PRN PRN 02/06/19 16:30 UNV Heparin Sodium (Porcine) (Heparin Sodium) 3,250 unit PRN Q6HRS PRN 02/05/19 01:30 02/06/19 12:32 DC 02/05/19 22:31 3,250 UNIT Heparin Sodium/ Dextrose 500 ml @ 0 mls/hr CONT PRN 02/04/19 22:45 02/06/19 12:32 DC 02/06/19 01:53 50 MLS/HR Hydralazine HCl (Apresoline Inj) 10 mg PRN Q3HRS PRN 02/06/19 11:45 02/15/19 06:03 10 MG Info (Anti-Coagulation Monitoring By Pharmacy) 1 each PRN DAILY PRN 02/04/19 22:45 02/06/19 12:34 DC 02/06/19 07:57 1 EACH Levetiracetam 1000 mg/Dextrose 110 ml @ 440 mls/hr 1X ONCE 02/04/19 16:00 02/04/19 16:14 DC 02/04/19 16:54 440 MLS/HR Levetiracetam 500 mg/Dextrose 105 ml @ 420 mls/hr Q12HR 02/05/19 16:30 02/14/19 20:49 420 MLS/HR Lidocaine HCl (Lidocaine 1% 20ml Vial) 20 ml STK-MED ONCE 02/09/19 10:52 02/09/19 10:53 DC Lidocaine HCl (Lidocaine 2% Viscous) 100 ml STK-MED ONCE 02/09/19 10:52 02/09/19 10:53 DC Lorazepam (Ativan) 2 mg PRN Q1HR PRN 02/08/19 13:00 02/12/19 00:05 2 MG Magnesium Sulfate/ Dextrose 100 ml @ 100 mls/hr 1X ONCE 02/09/19 15:45 02/09/19 16:44 DC 02/09/19 15:57 100 MLS/HR Metoprolol Tartrate (Lopressor Vial) 5 mg PRN Q6HRS PRN 02/08/19 17:00 02/15/19 05:53 5 MG Metoprolol Tartrate (Lopressor) 25 mg Q6HRS 02/11/19 18:00 02/14/19 11:58 25 MG Midazolam HCl 100 ml @ 0 mls/hr CONT PRN 02/08/19 13:00 UNV Midazolam HCl (Versed) 2 mg 1X ONCE 02/04/19 17:45 02/04/19 17:46 DC Morphine Sulfate (Morphine Sulfate) 4 mg PRN Q1HR PRN 02/08/19 13:00 02/10/19 21:05 4 MG Multi-Ingred Cream/Lotion/Oil/ Oint (Artificial Tears Eye Ointment) 1 heriberto PRN Q1HR PRN 02/08/19 18:45 Naloxone HCl (Narcan) 2 mg 1X ONCE 02/04/19 16:45 02/04/19 16:46 DC 02/04/19 14:57 2 MG Nicotine (Nicoderm Cq 21mg) 1 patch DAILY 02/07/19 11:45 02/14/19 11:20 DC 02/14/19 08:44 1 PATCH Norepinephrine Bitartrate 250 ml @ 1.875 mls/ hr CONT PRN 02/04/19 17:30 Piperacillin Sod/ Tazobactam Sod (Zosyn Per Pharmacy) 1 each PRN DAILY PRN 02/04/19 15:15 02/10/19 13:53 DC Piperacillin Sod/ Tazobactam Sod 3.375 gm/Sodium Chloride 50 ml @ 100 mls/hr Q6HRS 02/05/19 00:00 02/10/19 10:24 DC 02/10/19 05:12 100 MLS/HR Piperacillin Sod/ Tazobactam Sod 4.5 gm/Sodium Chloride 100 ml @ 200 mls/hr 1X ONCE 02/04/19 16:00 02/04/19 16:29 DC 02/04/19 15:33 200 MLS/HR Potassium Chloride/Water 50 ml @ 50 mls/hr 1X ONCE 02/14/19 17:30 02/14/19 18:29 DC 02/14/19 17:37 50 MLS/HR Potassium Chloride (KCl Oral Soln) 40 meq 1X ONCE 02/09/19 15:00 02/09/19 15:01 DC 02/09/19 14:49 40 MEQ Propofol 100 ml @ 0 mls/hr CONT PRN 02/08/19 13:00 UNV Propofol (Diprivan) 1,000 mg STK-MED ONCE 02/04/19 19:00 02/07/19 09:01 DC Rocuronium Rosie (Zemuron) 100 mg 1X ONCE 02/04/19 16:45 02/04/19 16:46 DC 02/04/19 15:00 100 MG Sodium Bicarbonate (Sodium Bicarb Adult 8.4% Syr) 50 meq 1X ONCE 02/07/19 11:45 02/07/19 11:46 DC 02/07/19 12:16 50 MEQ Sodium Chloride 500 ml @ 500 mls/hr 1X PRN PRN 02/06/19 13:30 Vancomycin HCl (Vanco Per Pharmacy) 1 each PRN DAILY PRN 02/10/19 10:30 02/14/19 13:21 1 EACH Vancomycin HCl (Vancomycin Trough Level) 1 each 1X ONCE 02/14/19 11:30 02/14/19 11:31 DC 02/14/19 11:30 1 EACH Vancomycin HCl 1.5 gm/Sodium Chloride 500 ml @ 250 mls/hr Q8H 02/13/19 20:00 02/15/19 03:55 250 MLS/HR Vancomycin HCl 1.75 gm/Sodium Chloride 500 ml @ 250 mls/hr Q12H 02/12/19 00:00 02/13/19 14:00 DC 02/13/19 12:33 250 MLS/HR Vancomycin HCl 2 gm/Sodium Chloride 500 ml @ 250 mls/hr 1X ONCE 02/10/19 11:00 02/10/19 12:59 DC 02/10/19 11:23 250 MLS/HR Vecuronium Rosie (Norcuron Bolus) 6 mg PRN Q2HR PRN 02/08/19 13:45 02/14/19 18:24 DC 02/09/19 22:30 6 MG Labs: Lab Laboratory Tests Test 02/14/19 08:50 02/14/19 11:50 02/14/19 12:39 02/15/19 05:50 O2 Saturation 92 % (92-99) 95 % (92-99) Arterial Blood pH 7.42 (7.35-7.45) 7.45 (7.35-7.45) Arterial Blood pCO2 at Patient Temp 47 mmHg (35-46) 44 mmHg (35-46) Arterial Blood pO2 at Patient Temp 67 mmHg (65-108) 82 mmHg (65-108) Arterial Blood HCO3 30 mmol/L (21-28) 30 mmol/L (21-28) Arterial Blood Base Excess 4 mmol/L (-3-3) 5 mmol/L (-3-3) FiO2 50 50% ps Vancomycin Level Trough 19.6 mcg/mL (10.0-20.0) Vancomycin Last Dose Date 02/14/19 Vancomycin Last Dose Time 0400 White Blood Count 9.0 x10^3/uL (4.0-11.0) Red Blood Count 2.91 x10^6/uL (4.30-5.70) Hemoglobin 8.9 g/dL (13.0-17.5) Hematocrit 27.3 % (39.0-53.0) Mean Corpuscular Volume 94 fL (79-100) Mean Corpuscular Hemoglobin 31 pg (25-35) Mean Corpuscular Hemoglobin Concent 33 g/dL (31-37) Red Cell Distribution Width 14.4 % (11.5-14.5) Platelet Count 413 x10^3/uL (140-400) Neutrophils (%) (Auto) 78 % (31-73) Lymphocytes (%) (Auto) 10 % (24-48) Monocytes (%) (Auto) 10 % (0-9) Eosinophils (%) (Auto) 2 % (0-3) Basophils (%) (Auto) 1 % (0-3) Neutrophils # (Auto) 7.0 x10^3uL (1.8-7.7) Lymphocytes # (Auto) 0.9 x10^3/uL (1.0-4.8) Monocytes # (Auto) 0.9 x10^3/uL (0.0-1.1) Eosinophils # (Auto) 0.2 x10^3/uL (0.0-0.7) Basophils # (Auto) 0.1 x10^3/uL (0.0-0.2) Sodium Level 149 mmol/L (136-145) Potassium Level 3.1 mmol/L (3.5-5.1) Chloride Level 108 mmol/L (98-107) Carbon Dioxide Level 32 mmol/L (21-32) Anion Gap 9 (6-14) Blood Urea Nitrogen 13 mg/dL (8-26) Creatinine 0.6 mg/dL (0.7-1.3) Estimated GFR (Cockcroft-Gault) 137.4 BUN/Creatinine Ratio 22 (6-20) Glucose Level 109 mg/dL (70-99) Calcium Level 9.0 mg/dL (8.5-10.1) Total Bilirubin 0.5 mg/dL (0.2-1.0) Aspartate Amino Transf (AST/SGOT) 35 U/L (15-37) Alanine Aminotransferase (ALT/SGPT) 138 U/L (16-63) Alkaline Phosphatase 117 U/L (46-116) Total Protein 6.8 g/dL (6.4-8.2) Albumin 2.6 g/dL (3.4-5.0) Albumin/Globulin Ratio 0.6 (1.0-1.7) Objective: Assessment: Sepsis with hypotension, POA, ?? likely had dehydration and too much pain meds. off pressers. Procalcitonin 0.11 Fever,,,? line infection. bains cultures NGTD Suspect aspiration Postsurgical spine infection with epidural abscess, s/p I and D on 12/30/18. ENTEROCOCCUS ampS,,,was undergoing TX with ampicillin at [facility]. Completed 6 weeks treatment on 02/10. -Original back surgery was done on 12/09/2018. (microdiscectomy with decompression of the left L4 and L5 nerve roots). -recent ESR up to 76 -Lumbar spine MRI on 02/08 concerning for discitis/osteo at L4-5; changes considered usual findings after treatment Acute respiratory failure s/p re-intubation,,02/08 electively for MRI. s/p bronchoscopy 02/09. cultures no growth Acute encephalopathy NSTEMI AL,,,improved Shock liver Myoclonic movements, on Keppra Hypertension. Atrial fibrillation. Obstructive sleep apnea. Morbid obesity. Chronic obstructive pulmonary disease. RUE swelling. US showed a 7.6 x 1.5 x 2.1 cm heterogeneous echogenicity identified lateral to the axillary the region in the soft tissue; -f/u US showed complex fluid collection measuring 2.3 cm x 0.8 cm x 7.4 cm. indeterminate significance. s/p IR drainage 02/14, sent for micro Encephalopathy improved Plan: Plan of Care Continue vanc, cefepime, acyclovir (abx changed on 02/10) Previously on Zosyn, ampicillin ( before admission) Last Trough 10.0 Monitor renal functions closely Cultures NGTD Monitor labs/VS/temp Supportive care PICC line removed d/w nursing ASHLEY JONES MD Feb 15, 2019 08:18
[2019-02-15] MEDS: FAMOTIDINE 20 MG/2 ML VIAL IVP SCH ×2 (09:16→20:28)
[2019-02-15] MEDS: levETIRAcetam 500 MG in IV DEXTROSE 5% 100ML 100 ML IV SCH ×2 (09:17→21:14)
--- NOTE | 2019-02-15 09:17 | PDOC ---
PULMONARY PROGRESS NOTES Subjective extubated 02/06, re-intubated 02/08 EXTUBATED 02/14 NOW ON BIPAP WANTS TO DRINK WATER NO INCREASE SOA Vitals Vital Signs Date Time Temp Pulse Resp B/P (MAP) Pulse Ox O2 Delivery O2 Flow Rate FiO2 02/15/19 08:00 Bi-pap 02/15/19 08:00 98.9 78 26 164/90 (114) 93 98.9 02/15/19 05:20 5.0 Comments r ROS: No Nausea, No Chest Pain, No Abdominal Pain, No Increase Cough General: Alert Lungs: Clear, Other Cardiovascular: S1, S2 Abdomen: Soft, Non-tender Neuro Exam: Alert Skin: Warm, Cool (feet) Labs Laboratory Tests Test 02/13/19 11:50 02/14/19 06:20 02/14/19 08:50 02/14/19 11:50 Vancomycin Level Trough 12.4 mcg/mL (10.0-20.0) 19.6 mcg/mL (10.0-20.0) Vancomycin Last Dose Date Unknown 02/14/19 Vancomycin Last Dose Time Unknown 0400 Sodium Level 146 mmol/L (136-145) Potassium Level 3.0 mmol/L (3.5-5.1) Chloride Level 106 mmol/L (98-107) Carbon Dioxide Level 34 mmol/L (21-32) Anion Gap 6 (6-14) Blood Urea Nitrogen 17 mg/dL (8-26) Creatinine 0.5 mg/dL (0.7-1.3) Estimated GFR (Cockcroft-Gault) 169.6 Glucose Level 116 mg/dL (70-99) Calcium Level 8.5 mg/dL (8.5-10.1) O2 Saturation 92 % (92-99) Arterial Blood pH 7.42 (7.35-7.45) Arterial Blood pCO2 at Patient Temp 47 mmHg (35-46) Arterial Blood pO2 at Patient Temp 67 mmHg (65-108) Arterial Blood HCO3 30 mmol/L (21-28) Arterial Blood Base Excess 4 mmol/L (-3-3) FiO2 50 Test 02/14/19 12:39 02/15/19 05:50 O2 Saturation 95 % (92-99) Arterial Blood pH 7.45 (7.35-7.45) Arterial Blood pCO2 at Patient Temp 44 mmHg (35-46) Arterial Blood pO2 at Patient Temp 82 mmHg (65-108) Arterial Blood HCO3 30 mmol/L (21-28) Arterial Blood Base Excess 5 mmol/L (-3-3) FiO2 50% ps White Blood Count 9.0 x10^3/uL (4.0-11.0) Red Blood Count 2.91 x10^6/uL (4.30-5.70) Hemoglobin 8.9 g/dL (13.0-17.5) Hematocrit 27.3 % (39.0-53.0) Mean Corpuscular Volume 94 fL (79-100) Mean Corpuscular Hemoglobin 31 pg (25-35) Mean Corpuscular Hemoglobin Concent 33 g/dL (31-37) Red Cell Distribution Width 14.4 % (11.5-14.5) Platelet Count 413 x10^3/uL (140-400) Neutrophils (%) (Auto) 78 % (31-73) Lymphocytes (%) (Auto) 10 % (24-48) Monocytes (%) (Auto) 10 % (0-9) Eosinophils (%) (Auto) 2 % (0-3) Basophils (%) (Auto) 1 % (0-3) Neutrophils # (Auto) 7.0 x10^3uL (1.8-7.7) Lymphocytes # (Auto) 0.9 x10^3/uL (1.0-4.8) Monocytes # (Auto) 0.9 x10^3/uL (0.0-1.1) Eosinophils # (Auto) 0.2 x10^3/uL (0.0-0.7) Basophils # (Auto) 0.1 x10^3/uL (0.0-0.2) Sodium Level 149 mmol/L (136-145) Potassium Level 3.1 mmol/L (3.5-5.1) Chloride Level 108 mmol/L (98-107) Carbon Dioxide Level 32 mmol/L (21-32) Anion Gap 9 (6-14) Blood Urea Nitrogen 13 mg/dL (8-26) Creatinine 0.6 mg/dL (0.7-1.3) Estimated GFR (Cockcroft-Gault) 137.4 BUN/Creatinine Ratio 22 (6-20) Glucose Level 109 mg/dL (70-99) Calcium Level 9.0 mg/dL (8.5-10.1) Total Bilirubin 0.5 mg/dL (0.2-1.0) Aspartate Amino Transf (AST/SGOT) 35 U/L (15-37) Alanine Aminotransferase (ALT/SGPT) 138 U/L (16-63) Alkaline Phosphatase 117 U/L (46-116) Total Protein 6.8 g/dL (6.4-8.2) Albumin 2.6 g/dL (3.4-5.0) Albumin/Globulin Ratio 0.6 (1.0-1.7) Laboratory Tests Test 02/14/19 11:50 02/14/19 12:39 02/15/19 05:50 Vancomycin Level Trough 19.6 mcg/mL (10.0-20.0) Vancomycin Last Dose Date 02/14/19 Vancomycin Last Dose Time 0400 O2 Saturation 95 % (92-99) Arterial Blood pH 7.45 (7.35-7.45) Arterial Blood pCO2 at Patient Temp 44 mmHg (35-46) Arterial Blood pO2 at Patient Temp 82 mmHg (65-108) Arterial Blood HCO3 30 mmol/L (21-28) Arterial Blood Base Excess 5 mmol/L (-3-3) FiO2 50% ps White Blood Count 9.0 x10^3/uL (4.0-11.0) Red Blood Count 2.91 x10^6/uL (4.30-5.70) Hemoglobin 8.9 g/dL (13.0-17.5) Hematocrit 27.3 % (39.0-53.0) Mean Corpuscular Volume 94 fL (79-100) Mean Corpuscular Hemoglobin 31 pg (25-35) Mean Corpuscular Hemoglobin Concent 33 g/dL (31-37) Red Cell Distribution Width 14.4 % (11.5-14.5) Platelet Count 413 x10^3/uL (140-400) Neutrophils (%) (Auto) 78 % (31-73) Lymphocytes (%) (Auto) 10 % (24-48) Monocytes (%) (Auto) 10 % (0-9) Eosinophils (%) (Auto) 2 % (0-3) Basophils (%) (Auto) 1 % (0-3) Neutrophils # (Auto) 7.0 x10^3uL (1.8-7.7) Lymphocytes # (Auto) 0.9 x10^3/uL (1.0-4.8) Monocytes # (Auto) 0.9 x10^3/uL (0.0-1.1) Eosinophils # (Auto) 0.2 x10^3/uL (0.0-0.7) Basophils # (Auto) 0.1 x10^3/uL (0.0-0.2) Sodium Level 149 mmol/L (136-145) Potassium Level 3.1 mmol/L (3.5-5.1) Chloride Level 108 mmol/L (98-107) Carbon Dioxide Level 32 mmol/L (21-32) Anion Gap 9 (6-14) Blood Urea Nitrogen 13 mg/dL (8-26) Creatinine 0.6 mg/dL (0.7-1.3) Estimated GFR (Cockcroft-Gault) 137.4 BUN/Creatinine Ratio 22 (6-20) Glucose Level 109 mg/dL (70-99) Calcium Level 9.0 mg/dL (8.5-10.1) Total Bilirubin 0.5 mg/dL (0.2-1.0) Aspartate Amino Transf (AST/SGOT) 35 U/L (15-37) Alanine Aminotransferase (ALT/SGPT) 138 U/L (16-63) Alkaline Phosphatase 117 U/L (46-116) Total Protein 6.8 g/dL (6.4-8.2) Albumin 2.6 g/dL (3.4-5.0) Albumin/Globulin Ratio 0.6 (1.0-1.7) Medications Active Scripts Medications Dose Route/Sig Max Daily Dose Days Date Category Unasyn 3 Gm Vial (Ampicillin Sodium/Sulbactam Na) 3 Gm Vial 2 Gm IV Q4HRS 45 01/05/19 Rx Oxycodone Hcl Immed.release (Oxycodone Hcl) 5 Mg Tablet 10 Mg PO PRN Q4HRS PRN 01/04/19 Rx Oxycontin (Oxycodone HCl) 15 Mg Tab.er.12h 15 Mg PO Q12HR 01/04/19 Rx Colace (Docusate Sodium) 100 Mg Capsule 100 Mg PO BID 30 12/09/18 Rx Hydrochlorothiazide Capsule (Hydrochlorothiazide) 12.5 Mg Capsule 25 Mg PO DAILY 11/29/18 Reported Proair Hfa Inhaler (Albuterol Sulfate) 8.5 Gm Hfa.aer.ad 2 Puff INH PRN Q6HRS PRN 11/29/18 Reported Albuterol Sulfate Neb Soln (Albuterol Sulfate) 2.5 Mg/3 Ml Vial.neb 2.5 Mg NEB PRN Q4-6HRS PRN 11/29/18 Reported Ipratropium [place] 0.2 Mg/1 Ml Solution 0.2 Mg IH PRN Q4-6HRS PRN 11/29/18 Reported Zoloft (Sertraline Hcl) 100 Mg Tablet 1 Tab PO DAILY 11/04/18 Reported Robaxin (Methocarbamol) 500 Mg Tablet 500 Mg PO QID PRN 11/04/18 Reported Azelastine Hcl 6 Ml Drops 1 Drop EACHEYE PRN DAILY PRN 11/04/18 Reported Lisinopril 10 Mg Tablet 10 Mg PO DAILY 08/12/17 Reported Lasix (Furosemide) 20 Mg Tablet 20 Mg PO DAILY 08/12/17 Reported Tamsulosin Hcl 0.4 Mg Cap.er.24h 0.4 Mg PO DAILY 08/12/17 Reported Montelukast Sodium Tablet (Montelukast Sodium) 10 Mg Tablet 10 Mg PO HS 08/12/17 Reported Metoprolol Tartrate 25 Mg Tablet 25 Mg PO BID 07/11/16 Rx Omeprazole 20 Mg Capsule.dr 20 Mg PO DAILY 07/09/16 Reported Topiramate 50 Mg Tablet 1 Tab PO BID 07/09/16 Reported Daliresp (Roflumilast) 500 Mcg Tablet 500 Mcg PO DAILY 07/09/16 Reported Comments NO CHANGE ON CXR Impression . 1. Acute respiratory failure, multifactorial in etiology. Re- Intubated 02/08 2. ENCEPHALOPATHY IMPROVING 3. Acute kidney injury 4. Elevated troponin, non-ST elevation myocardial infarction. 5. Atrial fibrillation with rapid ventricular response, now rate controlled. 6. Hyperkalemia. resolved 7. Status post back surgery, epidural abscess, incision and drainage, on antibiotic. no extension to brain on MRI 8. Chronic obstructive pulmonary disease. 9. Acute diastolic congestive heart failure. 10. sepsis, ? aspiration, s/p Bronch. no purulent secretions, cultures neg 11. Obstructive sleep apnea-hypopnea syndrome. 12. elevated LFTs improving/ shock liver, improving Plan . WILL CONTINUE BIPAP LASIX CXR REVIEWED FOLLOW SPEECH INPUT BD ANTIBX PER ID FOLLOW RENAL FUNCTION SHAKA PRIETO MD Feb 15, 2019 09:17
[2019-02-15] MEDS: VANCOMYCIN PER PHARMACY MC PRN (12:18)
[2019-02-15] MEDS ORDERED: FUROSEMIDE 20 MG/2 ML VIAL. IVP ONE (13:00)
--- NOTE | 2019-02-15 13:00 | PDOC ---
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 - afib, rate controlled abd obese but soft and non distended, active bowel sounds present feet warm, edema hands [place] in place with excellent output Vitals Vital Signs Date Time Temp Pulse Resp B/P (MAP) Pulse Ox O2 Delivery O2 Flow Rate FiO2 02/15/19 11:30 100 BiPAP/CPAP 02/15/19 08:00 98.9 78 26 164/90 (114) 98.9 02/15/19 05:20 5.0 Input & Output Intake and Output 02/15/19 06:59 Intake Total 1423.2 ml Output Total 2875 ml Balance -1451.8 ml IV Total 907.2 ml Tube Feeding 391 ml Other 125 ml Output Urine Total 2875 ml # Bowel Movements 1 Ventilator Settings O2 Flow Rate: 5.0 Oxygen Delivery Device: BiPAP/CPAP O2 Humdified: HME Temperature (97-99 F): Yes FiO2: 45 SpO2: 100 Stress Ulcer Prophylaxis Stress Ulcer Prophylaxis yes Imaging Imaging CXR noted as above Labs Labs K+ 3.1, albumin 2.6, Hgb 9.0 Medications Medications Current Medications Albuterol/ Ipratropium (Duoneb) 3 ml 1X ONCE NEB Last administered on at 05:27; Start 02/15/19 at 05:30; Stop 02/15/19 at 05:31; Status DC Potassium Chloride/Water 50 ml @ 50 mls/hr 1X ONCE IV Last administered on at 17:37; Start 02/14/19 at 17:30; Stop 02/14/19 at 18:29; Status DC Physical Exam ROS: No Nausea, No Chest Pain, No Abdominal Pain General: Alert Lungs: Clear, Other (decrease bs) Cardiovascular: S1, S2 Abdomen: Soft, Non-tender Skin: Warm, Cool (feet) Neuro Exam: Alert Impression . acute respiratory failure - presumed aspiration with pneumonia NSTEMI acute encephalopathy - possibly infectious likely aspiration pneumonitis , 02/13 CXR showing increased right basilar infiltrate which is likely source of his fever shock liver COPD recent spinal abscess s/p lumbar lami but sed rate had returned to normal [employer] and he was nearly finished with 45 day course of antibiotics, MRI suggests discitis/osteomyelitis at L4-5 but now determined to be routine healing acute flare of lumbar back pain last week without injury requiring an increase in pain meds for control obesity ADILENE hx of alcoholism constipation fever Plan . s/p code blue - bag and mask, mechanical ventilation x 48 hrs, then off 48 hrs then reintubated 02/08, extubated 02/14/19 acute respiratory failure - improved, presumed aspiration - continue antibiotics NSTEMI per enzymes- cardiology following acute encephalopathy - improving, LP not done as determined to not be necessary likely aspiration pneumonitis - continue antibiotics shock liver - near baseline - monitor COPD - continue neb treatments recent spinal abscess s/p lumbar lami but sed rate had returned to normal [employer]IAN and he was nearly finished with 45 day course of antibiotics, rechecked sed rate , consulted Dr. Boyd who did not feel MRI findings were significant to current case acute flare of lumbar back pain last week without injury requiring an increase in pain meds for control - MRI L-spine did not show acute cause - pain now controlled obesity ADILENE - CPAP, Bipap prn hx of alcoholism - I am unaware of him drinking alcohol while at [facility] and admission alcohol level was undetectable anemia - stable AL - resolved, he was taking unprescribed NSAIDS, osteoBiflex gummies from home at [facility] for pain Afib/RVR - rate controlled with meds constipation per KUB imaging - bowels moving fever - cultures repeated, PICC replaced with central line edema - continue lasix diuresis hypokalemia - replace as needed right upper extremity complex fluid collection Roseann JAY MD Feb 15, 2019 13:00
--- NOTE | 2019-02-15 13:36 | PDOC ---
PROGRESS NOTES Assessment Assessment Metabolic encephalopathy. Respiratory failure. Pleural effusion. Seizure. Discitis/osteomyelitis L4-5. AFib. ADILENE. COPD. CHF. Right UE fluid collection. Obesity. No evidence of acute CVA this time. RECOMMENDATIONS/PLAN: Continue medical and ID treatment. Continue Keppra 500 mg bid. OT/PT. Past Medical History Cardiovascular: AFIB, HTN Pulmonary: COPD, Other CENTRAL NERVOUS SYSTEM: Other GI: GERD Heme/Onc: Cancer Hepatobiliary: No pertinent hx Psych: Anxiety, Depression Musculoskeletal: low back pain, Osteoarthritis Rheumatologic: No pertinent hx Infectious disease: No pertinent hx Renal/: Benign prostatic enlarg. Endocrine: No pertinent hx Past Surgical History Hernia Repair, Colectomy, Other Family History Diabetes, Heart Disease Social History ALCOHOL: Occasional Drugs: None Lives: with Family ALLERGY: NKDA MEDICATIONS: Refer to [facility] REVIEW OF SYSTEMS: Constitutional: Obesity. Head: No recent traumatic brain or head injury. Skin: No edema, or rash. Ear: No infection, tinnitus. Eyes: No vision loss, or diplopia. Nose: No bleeding or purulent discharges. Hearing: No hearing decrease. Neck: No injury. Cardiac: CHF, AFib Pulmonary: CPOD. GI: No GI Ulcer, GI bleeding Urinary/genital: No dysuria, incontinence, urinary retention. Endocrine: Obesity. Skeletomuscular: back pain. Neurological: see HP. Psychiatric: Denies drug use/abuse. Otherwise, not [id number] review of systems. PHYSICAL EXAMINATION: General appearance in subacute distress. HEENT: Normocephalic and nontraumatic. Eyes, nose, ears, and throat are unremarkable. Neck is supple. No lymphadenopathy. No Crepitus. Cardiovascular: S1, S2. Pulmonary: Off vent. Breath sounds decreased. Abdomen: Bowel sounds are positive. Extremities: Edema. No restriction of range of motion NEUROLOGICAL EXAMINATION: Awake. Able to understand some questions. Not fully oriented to time, place but knew person. PERRL. EOMI. CN: no focal findings. Muscle tone: Mildly decreased. Muscle strength: 3-4. DTR: 0-1 Plantar reflex: Flexor response bilaterally Gait: Not able to walk. Sensory exam: no acute abnormal findings. No cerebellar signs elicited. F-T-N test not performed due to not able to perform the test. Objective Objective Vital Signs Date Time Temp Pulse Resp B/P (MAP) Pulse Ox O2 Delivery O2 Flow Rate FiO2 02/15/19 11:30 100 BiPAP/CPAP 02/15/19 08:00 98.9 78 26 164/90 (114) 98.9 02/15/19 05:20 5.0 Intake and Output 02/15/19 07:00 Intake Total 1423.2 ml Output Total 2875 ml Balance -1451.8 ml IV Total 907.2 ml Tube Feeding 391 ml Other 125 ml Output Urine Total 2875 ml # Bowel Movements 1 Vitals Signs Vitals VS - Last 72 Hours, by Label Date Time Temp Pulse Resp B/P (MAP) Pulse Ox O2 Delivery O2 Flow Rate FiO2 02/15/19 11:30 100 BiPAP/CPAP 02/15/19 08:00 Bi-pap 02/15/19 08:00 98.9 78 26 164/90 (114) 93 BiPAP/CPAP 98.9 02/15/19 07:35 98 BiPAP/CPAP 02/15/19 07:00 90 34 163/72 (102) 89 BiPAP/CPAP 02/15/19 06:03 85 179/94 02/15/19 06:00 93 26 179/94 (122) 93 BiPAP/CPAP 02/15/19 05:53 98 181/97 02/15/19 05:20 93 Nasal Cannula 5.0 02/15/19 05:00 98 30 187/107 (133) 90 BiPAP/CPAP 02/15/19 04:00 Bi-pap 02/15/19 04:00 99.5 85 20 173/95 (121) 95 BiPAP/CPAP 99.5 02/15/19 03:19 99 BiPAP/CPAP 02/15/19 03:00 87 23 166/100 (122) 93 BiPAP/CPAP 02/15/19 02:00 79 25 173/87 (115) 92 BiPAP/CPAP 02/15/19 01:15 97 BiPAP/CPAP 02/15/19 01:00 87 26 167/83 (111) 97 BiPAP/CPAP 02/15/19 00:00 99.2 83 25 167/79 (108) 96 BiPAP/CPAP 99.2 02/14/19 23:59 Bi-pap 02/14/19 23:36 87 142/91 02/14/19 23:00 92 20 174/89 (117) 96 BiPAP/CPAP 02/14/19 22:00 88 24 159/92 (114) 97 BiPAP/CPAP 02/14/19 21:59 97 BiPAP/CPAP 02/14/19 21:00 88 24 175/100 (125) 92 BiPAP/CPAP 4.0 02/14/19 20:00 Nasal Cannula 4.0 02/14/19 20:00 98.5 84 27 159/90 (113) 90 BiPAP/CPAP 98.5 02/14/19 19:43 97 Nasal Cannula 4.0 02/14/19 19:00 94 25 155/87 (109) 95 Nasal Cannula 4.0 02/14/19 18:29 90 167/110 02/14/19 18:00 90 24 172/92 (118) 93 Nasal Cannula 4.0 02/14/19 17:00 102 28 160/88 (112) 97 Nasal Cannula 4.0 02/14/19 16:00 Nasal Cannula 5.0 02/14/19 16:00 98.9 108 26 125/94 (104) 94 Nasal Cannula 4.0 98.9 02/14/19 15:11 91 Nasal Cannula 6.0 02/14/19 15:00 109 26 155/87 (109) 94 Nasal Cannula 5.0 02/14/19 14:00 100 26 140/83 (102) 95 Nasal Cannula 5.0 02/14/19 13:26 97 Nasal Cannula 6.0 02/14/19 13:00 110 26 175/80 (111) 96 Nasal Cannula 6.0 02/14/19 12:14 98 Ventilator 02/14/19 12:00 Mechanical Ventilator 02/14/19 12:00 99.7 104 25 159/77 (104) 98 Ventilator 99.7 02/14/19 11:58 101 152/83 02/14/19 11:00 108 28 116/67 (83) 98 Ventilator 02/14/19 10:00 106 28 153/75 (101) 97 Ventilator 02/14/19 09:00 102 25 135/70 (91) 97 Ventilator 02/14/19 08:42 97 3.0 02/14/19 08:12 100 3.0 02/14/19 08:00 97 Ventilator 02/14/19 08:00 99.0 94 23 137/85 (102) 97 Ventilator 99.0 02/14/19 08:00 Mechanical Ventilator 02/14/19 07:00 92 23 108/71 (83) 97 Ventilator Laboratory Laboratory Laboratory Tests Test 02/15/19 05:50 White Blood Count 9.0 x10^3/uL (4.0-11.0) Red Blood Count 2.91 x10^6/uL (4.30-5.70) Hemoglobin 8.9 g/dL (13.0-17.5) Hematocrit 27.3 % (39.0-53.0) Mean Corpuscular Volume 94 fL (79-100) Mean Corpuscular Hemoglobin 31 pg (25-35) Mean Corpuscular Hemoglobin Concent 33 g/dL (31-37) Red Cell Distribution Width 14.4 % (11.5-14.5) Platelet Count 413 x10^3/uL (140-400) Neutrophils (%) (Auto) 78 % (31-73) Lymphocytes (%) (Auto) 10 % (24-48) Monocytes (%) (Auto) 10 % (0-9) Eosinophils (%) (Auto) 2 % (0-3) Basophils (%) (Auto) 1 % (0-3) Neutrophils # (Auto) 7.0 x10^3uL (1.8-7.7) Lymphocytes # (Auto) 0.9 x10^3/uL (1.0-4.8) Monocytes # (Auto) 0.9 x10^3/uL (0.0-1.1) Eosinophils # (Auto) 0.2 x10^3/uL (0.0-0.7) Basophils # (Auto) 0.1 x10^3/uL (0.0-0.2) Sodium Level 149 mmol/L (136-145) Potassium Level 3.1 mmol/L (3.5-5.1) Chloride Level 108 mmol/L (98-107) Carbon Dioxide Level 32 mmol/L (21-32) Anion Gap 9 (6-14) Blood Urea Nitrogen 13 mg/dL (8-26) Creatinine 0.6 mg/dL (0.7-1.3) Estimated GFR (Cockcroft-Gault) 137.4 BUN/Creatinine Ratio 22 (6-20) Glucose Level 109 mg/dL (70-99) Calcium Level 9.0 mg/dL (8.5-10.1) Total Bilirubin 0.5 mg/dL (0.2-1.0) Aspartate Amino Transf (AST/SGOT) 35 U/L (15-37) Alanine Aminotransferase (ALT/SGPT) 138 U/L (16-63) Alkaline Phosphatase 117 U/L (46-116) Total Protein 6.8 g/dL (6.4-8.2) Albumin 2.6 g/dL (3.4-5.0) Albumin/Globulin Ratio 0.6 (1.0-1.7) Microbiology 02/12/19 Blood Culture - Preliminary, Resulted NO GROWTH AFTER 3 DAYS 02/09/19 - Final, Complete Medication Medications Current Medications Albuterol/ Ipratropium (Duoneb) 3 ml 1X ONCE NEB Last administered on at 05:27; Start 02/15/19 at 05:30; Stop 02/15/19 at 05:31; Status DC Furosemide (Lasix) 20 mg 1X ONCE IVP ; Start 02/15/19 at 13:00; Stop 02/15/19 at 13:01; Status DC Potassium Chloride/Water 50 ml @ 50 mls/hr 1X ONCE IV Last administered on at 17:37; Start 02/14/19 at 17:30; Stop 02/14/19 at 18:29; Status DC Potassium Chloride/Water 100 ml @ 100 mls/hr Q1H IV ; Start 02/15/19 at 13:00; Stop 02/15/19 at 14:59 Comment Review of Relevant I have reviewed the following items valerie (where applicable) has been applied. LIZANDRO ROSENBERG MD Feb 15, 2019 13:36
[2019-02-15] MEDS: POTASSIUM CHLORIDE 10MEQ 100 ML IV SCH ×2 (13:44→13:55)
[2019-02-15] MEDS ORDERED: FUROSEMIDE 40 MG/4 ML VIAL. IVP ONE (14:30)
[2019-02-15] MEDS: TPN PER PHARMACY MC PRN (14:37)
[2019-02-15] MEDS: ENOXAPARIN 40 MG/0.4 ML SYRINGE. SQ SCH (16:36)
[2019-02-15] MEDS: fentaNYL PF VIAL 100 MCG/2 ML VIAL IV PRN (17:07)
[2019-02-15] MEDS: MORPHINE SULFATE 2 MG/ML VIAL. IV PRN (19:34)
[2019-02-15] MEDS ORDERED: [UNRECOGNIZED DRUG - OTHER] IV SCH ×10 (22:00)
[2019-02-15] MEDS ORDERED: TOTAL PARENTERAL NUTRITION IV SCH ×10 (22:00)
[2019-02-15] MEDS ORDERED: AMINO ACID IV SCH ×10 (22:00)
[2019-02-15] MEDS ORDERED: DEXTROSE 70% IV SCH ×10 (22:00)
[2019-02-16] VITALS (14 sets, daily range): BP systolic 144–184; BP diastolic 82–141
[2019-02-16] MEDS: MORPHINE SULFATE 2 MG/ML VIAL. IV PRN ×2 (02:05→15:39)
[2019-02-16] MEDS: hydrALAZINE 20 MG/ML VIAL. IVP PRN ×3 (03:07→15:05)
[2019-02-16] MEDS: VANCOMYCIN 1.5 GM in IV NORMAL SALINE 500ML BAG 500 ML IV SCH ×3 (03:30→20:30)
[2019-02-16] MEDS: METOPROLOL TART IMMED RELEASE 25 MG TABLET. PO SCH (05:25)
[2019-02-16] MEDS: DEXTROSE 5% IV SCH (05:29)
[2019-02-16] MEDS: CEFEPIME HCL IV Push 2 GM VIAL. IVP SCH ×3 (05:29→21:59)
[2019-02-16] MEDS: ACYCLOVIR SODIUM IV SCH (05:29)
[2019-02-16 06:04] LABS: CALCIUM 9.2 mg/dL (8.5-10.1); CREATININE 0.5 mg/dL (0.7-1.3); GFR 169.6; PHOSPHORUS 3.6 mg/dL (2.6-4.7); POTASSIUM 3.7 mmol/L (3.5-5.1)
[2019-02-16 06:13] LABS: BASO # 0.1 x10^3/uL (0.0-0.2); BASO % 1 % (0-3); EOS # 0.1 x10^3/uL (0.0-0.7); EOS % 1 % (0-3); HEMATOCRIT 29.8 % (39.0-53.0); HEMOGLOBIN 9.4 g/dL (13.0-17.5); LYMPH # 0.9 x10^3/uL (1.0-4.8); LYMPH % 7 % (24-48); MEAN CORPUSCULAR HEMOGLOBIN 30 pg (25-35); MEAN CORPUSCULAR HGB CONC 32 g/dL (31-37); MEAN CORPUSCULAR VOLUME 94 fL (79-100); MONO # 1.1 x10^3/uL (0.0-1.1); MONO % 8 % (0-9); NEUT # 11.9 x10^3uL (1.8-7.7); NEUT % 84 % (31-73); PLATELET COUNT 499 x10^3/uL (140-400); RED BLOOD COUNT 3.16 x10^6/uL (4.30-5.70); RED CELL DISTRIBUTION WIDTH 14.4 % (11.5-14.5); WHITE BLOOD COUNT 14.2 x10^3/uL (4.0-11.0)
--- NOTE | 2019-02-16 07:11 | PDOC ---
Infectious Disease Note Subjective: Subjective Pt remains on bipap denies any pain no fevers d/w rn ROS: ROS Negative except for above. Vital Signs: Vital Signs Vital Signs Date Time Temp Pulse Resp B/P (MAP) Pulse Ox O2 Delivery O2 Flow Rate FiO2 02/16/19 06:00 123 27 165/98 (120) 96 BiPAP/CPAP 02/16/19 04:03 98.0 98.0 02/16/19 02:35 5.0 Physical Exam: PHYSICAL EXAM GENERAL: alert awake on bipap HEENT: Pupils equal,anicteric LUNGS: Diminished aeration. HEART: S1 and S2. ABDOMEN: Obese, soft. No grimace or guarding to palpation, with bowel sounds present. GENITOURINARY: Strat[place] in place. EXTREMITIES: Generalized edema,,No cyanosis. SKIN: Warm, without rash. NEUROLOGIC: sedated on vent Central line in place 02/14 Medications: Inpatient Meds: Current Medications Medications (Trade) Dose Ordered Sig/Sheryl Start Time Stop Time Status Last Admin Dose Admin Acetaminophen (Tylenol) 650 mg PRN Q6HRS PRN 02/10/19 17:00 02/14/19 11:58 650 MG Acyclovir Sodium 820 mg/Dextrose 116.4 ml @ 116.4 mls/ hr Q8HRS 02/10/19 12:00 02/16/19 05:29 116.4 MLS/HR Albuterol Sulfate (Ventolin Neb Soln) 2.5 mg 1X ONCE 02/07/19 02:15 02/07/19 02:16 DC 02/07/19 02:13 2.5 MG Albuterol/ Ipratropium (Duoneb) 3 ml 1X ONCE 02/15/19 05:30 02/15/19 05:31 DC 02/15/19 05:27 3 ML Amino Acids/ Glycerin/ Electrolytes 1,000 ml @ 80 mls/hr [id number] 02/07/19 08:30 02/08/19 17:18 DC 02/08/19 11:27 80 MLS/HR Aspirin (Aspirin) 150 mg DAILY 02/08/19 11:30 02/11/19 13:33 DC 02/11/19 12:06 150 MG Aspirin (Chase Aspirin) 325 mg [id number] 02/12/19 08:00 02/14/19 08:42 325 MG Aspirin (Children'S Aspirin) 81 mg [id number] 02/06/19 09:30 02/08/19 11:04 DC Atropine Sulfate (ATROPINE 0.5mg SYRINGE) 0.5 mg PRN Q5MIN PRN 02/06/19 13:30 Budesonide (Pulmicort) 0.5 mg RTBID 02/05/19 08:00 02/15/19 19:37 0.5 MG Calcium Gluconate (Calcium Gluconate) 1,000 mg 1X ONCE 02/04/19 16:00 02/04/19 16:01 DC 02/04/19 17:01 1,000 MG Cefepime HCl (Maxipime) 2 gm Q8HRS 02/10/19 11:00 02/16/19 05:29 2 GM Dexmedetomidine HCl 200 mcg/ Sodium Chloride 50 ml @ 0 mls/hr CONT PRN 02/06/19 13:30 02/14/19 13:23 DC 02/09/19 08:58 13 MLS/HR Digoxin (Lanoxin) 125 mcg DAILY 02/09/19 15:00 02/11/19 13:33 DC 02/11/19 08:23 125 MCG Dopamine HCl/ Dextrose 250 ml @ As Directed STK-MED ONCE 02/04/19 17:25 02/04/19 17:26 DC Enoxaparin Sodium (Lovenox 40mg Syringe) 40 mg Q24H 02/09/19 16:00 02/15/19 16:36 40 MG Etomidate (Amidate) 20 mg 1X ONCE 02/04/19 16:45 02/04/19 16:46 DC 02/04/19 15:00 20 MG Famotidine (Pepcid Vial) 20 mg BID 02/09/19 21:00 02/15/19 20:28 20 MG Fentanyl Citrate 30 ml @ 0 mls/hr CONT PRN 02/08/19 13:00 UNV Fentanyl Citrate (Fentanyl 2ml Vial) 50 mcg PRN Q3HRS PRN 02/06/19 11:45 02/15/19 17:07 50 MCG Furosemide (Lasix) 40 mg DAILY 02/16/19 09:00 Gadobutrol (Gadavist) 6 mmol 1X ONCE 02/08/19 15:00 02/08/19 15:01 DC 02/08/19 15:12 6 MMOL Haloperidol Lactate (Haldol Inj) 2.5 mg 1X PRN PRN 02/06/19 16:30 UNV Heparin Sodium (Porcine) (Heparin Sodium) 3,250 unit PRN Q6HRS PRN 02/05/19 01:30 02/06/19 12:32 DC 02/05/19 22:31 3,250 UNIT Heparin Sodium/ Dextrose 500 ml @ 0 mls/hr CONT PRN 02/04/19 22:45 02/06/19 12:32 DC 02/06/19 01:53 50 MLS/HR Hydralazine HCl (Apresoline Inj) 10 mg PRN Q3HRS PRN 02/06/19 11:45 02/16/19 03:07 10 MG Info (Anti-Coagulation Monitoring By Pharmacy) 1 each PRN DAILY PRN 02/04/19 22:45 02/06/19 12:34 DC 02/06/19 07:57 1 EACH Info (Tpn Per Pharmacy) 1 each PRN DAILY PRN 02/15/19 14:30 02/15/19 14:37 1 EACH Levetiracetam 1000 mg/Dextrose 110 ml @ 440 mls/hr 1X ONCE 02/04/19 16:00 02/04/19 16:14 DC 02/04/19 16:54 440 MLS/HR Levetiracetam 500 mg/Dextrose 105 ml @ 420 mls/hr Q12HR 02/05/19 16:30 02/15/19 21:14 420 MLS/HR Lidocaine HCl (Lidocaine 1% 20ml Vial) 20 ml STK-MED ONCE 02/09/19 10:52 02/09/19 10:53 DC Lidocaine HCl (Lidocaine 2% Viscous) 100 ml STK-MED ONCE 02/09/19 10:52 02/09/19 10:53 DC Lorazepam (Ativan) 2 mg PRN Q1HR PRN 02/08/19 13:00 02/12/19 00:05 2 MG Magnesium Sulfate/ Dextrose 100 ml @ 100 mls/hr 1X ONCE 02/09/19 15:45 02/09/19 16:44 DC 02/09/19 15:57 100 MLS/HR Metoprolol Tartrate (Lopressor Vial) 5 mg PRN Q6HRS PRN 02/08/19 17:00 02/15/19 23:23 5 MG Metoprolol Tartrate (Lopressor) 25 mg Q6HRS 02/11/19 18:00 02/14/19 11:58 25 MG Midazolam HCl 100 ml @ 0 mls/hr CONT PRN 02/08/19 13:00 UNV Midazolam HCl (Versed) 2 mg 1X ONCE 02/04/19 17:45 02/04/19 17:46 DC Morphine Sulfate (Morphine Sulfate) 4 mg PRN Q1HR PRN 02/08/19 13:00 02/10/19 21:05 4 MG Multi-Ingred Cream/Lotion/Oil/ Oint (Artificial Tears Eye Ointment) 1 heriberto PRN Q1HR PRN 02/08/19 18:45 Naloxone HCl (Narcan) 2 mg 1X ONCE 02/04/19 16:45 02/04/19 16:46 DC 02/04/19 14:57 2 MG Nicotine (Nicoderm Cq 21mg) 1 patch DAILY 02/07/19 11:45 02/14/19 11:20 DC 02/14/19 08:44 1 PATCH Norepinephrine Bitartrate 250 ml @ 1.875 mls/ hr CONT PRN 02/04/19 17:30 Piperacillin Sod/ Tazobactam Sod (Zosyn Per Pharmacy) 1 each PRN DAILY PRN 02/04/19 15:15 02/10/19 13:53 DC Piperacillin Sod/ Tazobactam Sod 3.375 gm/Sodium Chloride 50 ml @ 100 mls/hr Q6HRS 02/05/19 00:00 02/10/19 10:24 DC 02/10/19 05:12 100 MLS/HR Piperacillin Sod/ Tazobactam Sod 4.5 gm/Sodium Chloride 100 ml @ 200 mls/hr 1X ONCE 02/04/19 16:00 02/04/19 16:29 DC 02/04/19 15:33 200 MLS/HR Potassium Chloride/Water 100 ml @ 100 mls/hr Q1H 02/15/19 13:00 02/15/19 14:59 DC 02/15/19 13:55 100 MLS/HR Potassium Chloride (KCl Oral Soln) 40 meq 1X ONCE 02/09/19 15:00 02/09/19 15:01 DC 02/09/19 14:49 40 MEQ Propofol 100 ml @ 0 mls/hr CONT PRN 02/08/19 13:00 UNV Propofol (Diprivan) 1,000 mg STK-MED ONCE 02/04/19 19:00 02/07/19 09:01 DC Rocuronium [place] (Zemuron) 100 mg 1X ONCE 02/04/19 16:45 02/04/19 16:46 DC 02/04/19 15:00 100 MG Sodium Bicarbonate (Sodium Bicarb Adult 8.4% Syr) 50 meq 1X ONCE 02/07/19 11:45 02/07/19 11:46 DC 02/07/19 12:16 50 MEQ Sodium Chloride 70 meq/Potassium Chloride 70 meq/ Potassium Phosphate 13.6 mmol/Magnesium Sulfate 10 meq/ Calcium Gluconate 10 meq/ Multivitamins 10 ml/Chromium/ Copper/Manganese/ Seleni/Zn 1 ml/ Total Parenteral Nutrition/Amino Acids/Dextrose/ Fat Emulsion Intravenous 1,512 ml @ 63 mls/hr TPN CONT 02/15/19 22:00 02/16/19 21:59 02/15/19 21:14 63 MLS/HR Vancomycin HCl (Vanco Per Pharmacy) 1 each PRN DAILY PRN 02/10/19 10:30 02/15/19 12:18 1 EACH Vancomycin HCl (Vancomycin Trough Level) 1 each 1X ONCE 02/14/19 11:30 02/14/19 11:31 DC 02/14/19 11:30 1 EACH Vancomycin HCl 1.5 gm/Sodium Chloride 500 ml @ 250 mls/hr Q8H 02/13/19 20:00 02/16/19 03:30 250 MLS/HR Vancomycin HCl 1.75 gm/Sodium Chloride 500 ml @ 250 mls/hr Q12H 02/12/19 00:00 02/13/19 14:00 DC 02/13/19 12:33 250 MLS/HR Vancomycin HCl 2 gm/Sodium Chloride 500 ml @ 250 mls/hr 1X ONCE 02/10/19 11:00 02/10/19 12:59 DC 02/10/19 11:23 250 MLS/HR Vecuronium [place] (Norcuron Bolus) 6 mg PRN Q2HR PRN 02/08/19 13:45 02/14/19 18:24 DC 02/09/19 22:30 6 MG Labs: Lab Laboratory Tests Test 02/16/19 05:40 White Blood Count 14.2 x10^3/uL (4.0-11.0) Red Blood Count 3.16 x10^6/uL (4.30-5.70) Hemoglobin 9.4 g/dL (13.0-17.5) Hematocrit 29.8 % (39.0-53.0) Mean Corpuscular Volume 94 fL (79-100) Mean Corpuscular Hemoglobin 30 pg (25-35) Mean Corpuscular Hemoglobin Concent 32 g/dL (31-37) Red Cell Distribution Width 14.4 % (11.5-14.5) Platelet Count 499 x10^3/uL (140-400) Neutrophils (%) (Auto) 84 % (31-73) Lymphocytes (%) (Auto) 7 % (24-48) Monocytes (%) (Auto) 8 % (0-9) Eosinophils (%) (Auto) 1 % (0-3) Basophils (%) (Auto) 1 % (0-3) Neutrophils # (Auto) 11.9 x10^3uL (1.8-7.7) Lymphocytes # (Auto) 0.9 x10^3/uL (1.0-4.8) Monocytes # (Auto) 1.1 x10^3/uL (0.0-1.1) Eosinophils # (Auto) 0.1 x10^3/uL (0.0-0.7) Basophils # (Auto) 0.1 x10^3/uL (0.0-0.2) Sodium Level 149 mmol/L (136-145) Potassium Level 3.7 mmol/L (3.5-5.1) Chloride Level 107 mmol/L (98-107) Carbon Dioxide Level 34 mmol/L (21-32) Anion Gap 8 (6-14) Blood Urea Nitrogen 13 mg/dL (8-26) Creatinine 0.5 mg/dL (0.7-1.3) Estimated GFR (Cockcroft-Gault) 169.6 Glucose Level 130 mg/dL (70-99) Calcium Level 9.2 mg/dL (8.5-10.1) Phosphorus Level 3.6 mg/dL (2.6-4.7) Magnesium Level 2.0 mg/dL (1.8-2.4) Objective: Assessment: Sepsis with hypotension, POA, ?? likely had dehydration and too much pain meds. off pressers. Procalcitonin 0.11 Fever,,,? line infection. bains cultures NGTD Suspect aspiration Postsurgical spine infection with epidural abscess, s/p I and D on 12/30/18. ENTEROCOCCUS ampS,,,was undergoing TX with ampicillin at SNF. Completed 6 weeks treatment on 02/10. -Original back surgery was done on 12/09/2018. (microdiscectomy with decompression of the left L4 and L5 nerve roots). -recent ESR up to 76 -Lumbar spine MRI on 02/08 concerning for discitis/osteo at L4-5; changes considered usual findings after treatment Acute respiratory failure s/p re-intubation,,02/08 electively for MRI. s/p bronchoscopy 02/09. cultures no growth Acute encephalopathy NSTEMI AL,,,improved Shock liver Myoclonic movements, on Keppra Hypertension. Atrial fibrillation. Obstructive sleep apnea. Morbid obesity. Chronic obstructive pulmonary disease. RUE swelling. US showed a 7.6 x 1.5 x 2.1 cm heterogeneous echogenicity identified lateral to the axillary the region in the soft tissue; -f/u US showed complex fluid collection measuring 2.3 cm x 0.8 cm x 7.4 cm. indeterminate significance. s/p IR drainage 02/14, sent for micro Encephalopathy metabolic improved Leucocytosis ? fever pattern has improved, could be reactive Plan: Plan of Care Continue cefepime, (abx changed on 02/10) DC acyclovir, Previously on Zosyn, ampicillin ( before admission) Last Vanc Trough 19.6 Monitor renal functions closely Cultures NGTD Monitor labs/VS/temp Supportive care PICC line removed f/u cath tip cultures Monitor wbc trend d/w nursing ASHLEY JONES MD Feb 16, 2019 07:11
[2019-02-16] MEDS: METOPROLOL TARTRATE 5 MG/5 ML VIAL. IVP SCH ×3 (07:56→16:43)
[2019-02-16] MEDS: FAMOTIDINE 20 MG/2 ML VIAL IVP SCH ×2 (07:56→20:30)
[2019-02-16] MEDS: levETIRAcetam 500 MG in IV DEXTROSE 5% 100ML 100 ML IV SCH ×2 (07:57→20:30)
[2019-02-16] MEDS: ASPIRIN 325 MG TABLET PO SCH (07:57)
[2019-02-16] MEDS: FUROSEMIDE 40 MG/4 ML VIAL. IVP SCH (07:57)
[2019-02-16] MEDS: IPRATRPIUM/ALBUTEROL 0.5/2.5MG 3 ML NEBU. NEB SCH ×4 (08:14→19:53)
[2019-02-16] MEDS: BUDESONIDE 0.5 MG/2 ML NEBU. NEB SCH ×2 (08:14→19:53)
--- NOTE | 2019-02-16 09:18 | PDOC ---
PULMONARY PROGRESS NOTES Subjective extubated 02/06, re-intubated 02/08 EXTUBATED 02/14 OFF BIPAP ON NC NO INCREASE SOA Vitals Vital Signs Date Time Temp Pulse Resp B/P (MAP) Pulse Ox O2 Delivery O2 Flow Rate FiO2 02/16/19 08:15 96 BiPAP/CPAP 02/16/19 08:00 5.0 02/16/19 07:56 123 165/98 02/16/19 06:00 27 02/16/19 04:03 98.0 98.0 Comments r ROS: No Nausea, No Chest Pain, No Abdominal Pain, No Increase Cough General: Alert Lungs: Clear, Other Cardiovascular: S1, S2 Abdomen: Soft, Non-tender Neuro Exam: Alert Skin: Warm, Cool (feet) Labs Laboratory Tests Test 02/14/19 11:50 02/14/19 12:39 02/15/19 05:50 02/16/19 05:40 Vancomycin Level Trough 19.6 mcg/mL (10.0-20.0) Vancomycin Last Dose Date 02/14/19 Vancomycin Last Dose Time 0400 O2 Saturation 95 % (92-99) Arterial Blood pH 7.45 (7.35-7.45) Arterial Blood pCO2 at Patient Temp 44 mmHg (35-46) Arterial Blood pO2 at Patient Temp 82 mmHg (65-108) Arterial Blood HCO3 30 mmol/L (21-28) Arterial Blood Base Excess 5 mmol/L (-3-3) FiO2 50% ps White Blood Count 9.0 x10^3/uL (4.0-11.0) 14.2 x10^3/uL (4.0-11.0) Red Blood Count 2.91 x10^6/uL (4.30-5.70) 3.16 x10^6/uL (4.30-5.70) Hemoglobin 8.9 g/dL (13.0-17.5) 9.4 g/dL (13.0-17.5) Hematocrit 27.3 % (39.0-53.0) 29.8 % (39.0-53.0) Mean Corpuscular Volume 94 fL (79-100) 94 fL (79-100) Mean Corpuscular Hemoglobin 31 pg (25-35) 30 pg (25-35) Mean Corpuscular Hemoglobin Concent 33 g/dL (31-37) 32 g/dL (31-37) Red Cell Distribution Width 14.4 % (11.5-14.5) 14.4 % (11.5-14.5) Platelet Count 413 x10^3/uL (140-400) 499 x10^3/uL (140-400) Neutrophils (%) (Auto) 78 % (31-73) 84 % (31-73) Lymphocytes (%) (Auto) 10 % (24-48) 7 % (24-48) Monocytes (%) (Auto) 10 % (0-9) 8 % (0-9) Eosinophils (%) (Auto) 2 % (0-3) 1 % (0-3) Basophils (%) (Auto) 1 % (0-3) 1 % (0-3) Neutrophils # (Auto) 7.0 x10^3uL (1.8-7.7) 11.9 x10^3uL (1.8-7.7) Lymphocytes # (Auto) 0.9 x10^3/uL (1.0-4.8) 0.9 x10^3/uL (1.0-4.8) Monocytes # (Auto) 0.9 x10^3/uL (0.0-1.1) 1.1 x10^3/uL (0.0-1.1) Eosinophils # (Auto) 0.2 x10^3/uL (0.0-0.7) 0.1 x10^3/uL (0.0-0.7) Basophils # (Auto) 0.1 x10^3/uL (0.0-0.2) 0.1 x10^3/uL (0.0-0.2) Sodium Level 149 mmol/L (136-145) 149 mmol/L (136-145) Potassium Level 3.1 mmol/L (3.5-5.1) 3.7 mmol/L (3.5-5.1) Chloride Level 108 mmol/L (98-107) 107 mmol/L (98-107) Carbon Dioxide Level 32 mmol/L (21-32) 34 mmol/L (21-32) Anion Gap 9 (6-14) 8 (6-14) Blood Urea Nitrogen 13 mg/dL (8-26) 13 mg/dL (8-26) Creatinine 0.6 mg/dL (0.7-1.3) 0.5 mg/dL (0.7-1.3) Estimated GFR (Cockcroft-Gault) 137.4 169.6 BUN/Creatinine Ratio 22 (6-20) Glucose Level 109 mg/dL (70-99) 130 mg/dL (70-99) Calcium Level 9.0 mg/dL (8.5-10.1) 9.2 mg/dL (8.5-10.1) Total Bilirubin 0.5 mg/dL (0.2-1.0) Aspartate Amino Transf (AST/SGOT) 35 U/L (15-37) Alanine Aminotransferase (ALT/SGPT) 138 U/L (16-63) Alkaline Phosphatase 117 U/L (46-116) Total Protein 6.8 g/dL (6.4-8.2) Albumin 2.6 g/dL (3.4-5.0) Albumin/Globulin Ratio 0.6 (1.0-1.7) Phosphorus Level 3.6 mg/dL (2.6-4.7) Magnesium Level 2.0 mg/dL (1.8-2.4) Laboratory Tests Test 02/16/19 05:40 White Blood Count 14.2 x10^3/uL (4.0-11.0) Red Blood Count 3.16 x10^6/uL (4.30-5.70) Hemoglobin 9.4 g/dL (13.0-17.5) Hematocrit 29.8 % (39.0-53.0) Mean Corpuscular Volume 94 fL (79-100) Mean Corpuscular Hemoglobin 30 pg (25-35) Mean Corpuscular Hemoglobin Concent 32 g/dL (31-37) Red Cell Distribution Width 14.4 % (11.5-14.5) Platelet Count 499 x10^3/uL (140-400) Neutrophils (%) (Auto) 84 % (31-73) Lymphocytes (%) (Auto) 7 % (24-48) Monocytes (%) (Auto) 8 % (0-9) Eosinophils (%) (Auto) 1 % (0-3) Basophils (%) (Auto) 1 % (0-3) Neutrophils # (Auto) 11.9 x10^3uL (1.8-7.7) Lymphocytes # (Auto) 0.9 x10^3/uL (1.0-4.8) Monocytes # (Auto) 1.1 x10^3/uL (0.0-1.1) Eosinophils # (Auto) 0.1 x10^3/uL (0.0-0.7) Basophils # (Auto) 0.1 x10^3/uL (0.0-0.2) Sodium Level 149 mmol/L (136-145) Potassium Level 3.7 mmol/L (3.5-5.1) Chloride Level 107 mmol/L (98-107) Carbon Dioxide Level 34 mmol/L (21-32) Anion Gap 8 (6-14) Blood Urea Nitrogen 13 mg/dL (8-26) Creatinine 0.5 mg/dL (0.7-1.3) Estimated GFR (Cockcroft-Gault) 169.6 Glucose Level 130 mg/dL (70-99) Calcium Level 9.2 mg/dL (8.5-10.1) Phosphorus Level 3.6 mg/dL (2.6-4.7) Magnesium Level 2.0 mg/dL (1.8-2.4) Medications Active Scripts Medications Dose Route/Sig Max Daily Dose Days Date Category Unasyn 3 Gm Vial (Ampicillin Sodium/Sulbactam Na) 3 Gm Vial 2 Gm IV Q4HRS 45 01/05/19 Rx Oxycodone Hcl Immed.release (Oxycodone Hcl) 5 Mg Tablet 10 Mg PO PRN Q4HRS PRN 01/04/19 Rx Oxycontin (Oxycodone HCl) 15 Mg Tab.er.12h 15 Mg PO Q12HR 01/04/19 Rx Colace (Docusate Sodium) 100 Mg Capsule 100 Mg PO BID 30 12/09/18 Rx Hydrochlorothiazide Capsule (Hydrochlorothiazide) 12.5 Mg Capsule 25 Mg PO DAILY 11/29/18 Reported Proair Hfa Inhaler (Albuterol Sulfate) 8.5 Gm Hfa.aer.ad 2 Puff INH PRN Q6HRS PRN 11/29/18 Reported Albuterol Sulfate Neb Soln (Albuterol Sulfate) 2.5 Mg/3 Ml Vial.neb 2.5 Mg NEB PRN Q4-6HRS PRN 11/29/18 Reported Ipratropium [place] 0.2 Mg/1 Ml Solution 0.2 Mg IH PRN Q4-6HRS PRN 11/29/18 Reported Zoloft (Sertraline Hcl) 100 Mg Tablet 1 Tab PO DAILY 11/04/18 Reported Robaxin (Methocarbamol) 500 Mg Tablet 500 Mg PO QID PRN 11/04/18 Reported Azelastine Hcl 6 Ml Drops 1 Drop EACHEYE PRN DAILY PRN 11/04/18 Reported Lisinopril 10 Mg Tablet 10 Mg PO DAILY 08/12/17 Reported Lasix (Furosemide) 20 Mg Tablet 20 Mg PO DAILY 08/12/17 Reported Tamsulosin Hcl 0.4 Mg Cap.er.24h 0.4 Mg PO DAILY 08/12/17 Reported Montelukast Sodium Tablet (Montelukast Sodium) 10 Mg Tablet 10 Mg PO HS 08/12/17 Reported Metoprolol Tartrate 25 Mg Tablet 25 Mg PO BID 07/11/16 Rx Omeprazole 20 Mg Capsule.dr 20 Mg PO DAILY 07/09/16 Reported Topiramate 50 Mg Tablet 1 Tab PO BID 07/09/16 Reported Daliresp (Roflumilast) 500 Mcg Tablet 500 Mcg PO DAILY 07/09/16 Reported Comments NO CHANGE ON CXR Impression . 1. Acute respiratory failure, multifactorial in etiology. Re- Intubated 02/08 2. ENCEPHALOPATHY IMPROVING 3. Acute kidney injury 4. Elevated troponin, non-ST elevation myocardial infarction. 5. Atrial fibrillation with rapid ventricular response, now rate controlled. 6. Hyperkalemia. resolved 7. Status post back surgery, epidural abscess, incision and drainage, on antibiotic. no extension to brain on MRI 8. Chronic obstructive pulmonary disease. 9. Acute diastolic congestive heart failure. 10. sepsis, ? aspiration, s/p Bronch. no purulent secretions, cultures neg 11. Obstructive sleep apnea-hypopnea syndrome. 12. elevated LFTs improving/ shock liver, improving 13. DYSPHAGIA Plan . WILL CONTINUE BIPAP QHS AND PRN D/W YESTERDAY TRANSFER TO [facility] DAILY FOLLOW SPEECH INPUT BD ANTIBX PER ID FOLLOW RENAL FUNCTION SHAKA PRIETO MD Feb 16, 2019 09:18
[2019-02-16] MEDS: VANCOMYCIN PER PHARMACY MC PRN (10:00)
--- NOTE | 2019-02-16 11:06 | PDOC ---
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 02/16/19 1106: CARDIO Progress Notes Date and Time Date of Service 02/16/19 Time of Evaluation 1015 Subjective Subjective: Other (on BiPAP) Vitals Vitals Vital Signs Date Time Temp Pulse Resp B/P (MAP) Pulse Ox O2 Delivery O2 Flow Rate FiO2 02/16/19 10:00 102 27 151/100 (117) 96 BiPAP/CPAP 02/16/19 08:00 5.0 02/16/19 07:00 99.1 99.1 Weight Weight [ ] Input and Output Intake and Output Intake and Output 02/16/19 07:00 Intake Total 2707.8 ml Output Total 7140 ml Balance -4432.2 ml IV Total 2707.8 ml Output Urine Total 7140 ml Laboratory Labs Laboratory Tests Test 02/16/19 05:40 White Blood Count 14.2 x10^3/uL (4.0-11.0) Red Blood Count 3.16 x10^6/uL (4.30-5.70) Hemoglobin 9.4 g/dL (13.0-17.5) Hematocrit 29.8 % (39.0-53.0) Mean Corpuscular Volume 94 fL (79-100) Mean Corpuscular Hemoglobin 30 pg (25-35) Mean Corpuscular Hemoglobin Concent 32 g/dL (31-37) Red Cell Distribution Width 14.4 % (11.5-14.5) Platelet Count 499 x10^3/uL (140-400) Neutrophils (%) (Auto) 84 % (31-73) Lymphocytes (%) (Auto) 7 % (24-48) Monocytes (%) (Auto) 8 % (0-9) Eosinophils (%) (Auto) 1 % (0-3) Basophils (%) (Auto) 1 % (0-3) Neutrophils # (Auto) 11.9 x10^3uL (1.8-7.7) Lymphocytes # (Auto) 0.9 x10^3/uL (1.0-4.8) Monocytes # (Auto) 1.1 x10^3/uL (0.0-1.1) Eosinophils # (Auto) 0.1 x10^3/uL (0.0-0.7) Basophils # (Auto) 0.1 x10^3/uL (0.0-0.2) Sodium Level 149 mmol/L (136-145) Potassium Level 3.7 mmol/L (3.5-5.1) Chloride Level 107 mmol/L (98-107) Carbon Dioxide Level 34 mmol/L (21-32) Anion Gap 8 (6-14) Blood Urea Nitrogen 13 mg/dL (8-26) Creatinine 0.5 mg/dL (0.7-1.3) Estimated GFR (Cockcroft-Gault) 169.6 Glucose Level 130 mg/dL (70-99) Calcium Level 9.2 mg/dL (8.5-10.1) Phosphorus Level 3.6 mg/dL (2.6-4.7) Magnesium Level 2.0 mg/dL (1.8-2.4) Microbiology Micro Microbiology 02/12/19 Blood Culture - Preliminary, Resulted NO GROWTH AFTER 3 DAYS 02/09/19 - Final, Complete 02/14/19 Aerobic Culture, Resulted Pending 02/14/19 Aerobic Culture Result 1 (TG), Resulted Pending 02/14/19 Gram Stain - Final, Resulted 02/14/19 Gram Stain Result 1 (TG) - Final, Resulted 02/14/19 Gram Stain Result 2 (TG) - Final, Resulted Physical Exam HEENT: Neck Supple W Full Motion Chest: Symmetric LUNGS: Other (diminished bases; on BiPAP) Heart: S1S2, irregularly irregular (AFIB) Abdomen: Other (obese) Extremities: Other (mild anasarca) Neurology: alert, follow commands Assessment Assessment 1. Acute hypoxic respiratory failure; extubated 02/14; remains on BiPAP 2. Acute on chronic diastolic HF; CXR with vascular congestion 3. Persistent AFIB; intermittent RVR. Metoprolol IV PRN 4. NSTEMI; Most probably type II, demand ischemic. Echo showed preserved LV systolic function with an EF of 65%. RV mild to moderately dilated. 5. Post surgical epidural abscess; s/p I & D 6. Transaminitis; improved 7. Metabolic encephalopathy; Recommendations Diuresis Metoprolol IV q6 for rate control Dig IV PRN ASA for stroke prevention; consider Eliquis upon discharge Outpatient ischemic evaluation Supportive care TONIO KIM MD 02/16/19 1794: CARDIO Progress Notes Plan Plan Pt. seen and examined. Agree with above REEL MAN note. Supportive care with low dose IV b-juancarlos and diuretics. Awaiting improvement in resp failure. Still on Bipap MATI WINTERS APRN Feb 16, 2019 11:06 TONIO KIM MD Feb 16, 2019 17:54
[2019-02-16] MEDS ORDERED: METHYL SALICYLATE/MENTHOL TOPICAL OINTMENT 29GM TUBE. TP PRN (11:45)
[2019-02-16] MEDS: TPN PER PHARMACY MC PRN (13:10)
[2019-02-16] MEDS: DIGOXIN IV 500 MCG/2 ML AMPUL. IV SCH (13:18)
--- NOTE | 2019-02-16 13:39 | PDOC ---
PROGRESS NOTES Assessment Assessment Metabolic encephalopathy. Respiratory failure. Pleural effusion. Seizure. Discitis/osteomyelitis L4-5. AFib. ADILENE. COPD. CHF. Right UE fluid collection. Obesity. No evidence of acute CVA this time. RECOMMENDATIONS/PLAN: Continue medical and ID treatment. Continue Keppra 500 mg bid. OT/PT. Past Medical History Cardiovascular: AFIB, HTN Pulmonary: COPD, Other CENTRAL NERVOUS SYSTEM: Other GI: GERD Heme/Onc: Cancer Hepatobiliary: No pertinent hx Psych: Anxiety, Depression Musculoskeletal: low back pain, Osteoarthritis Rheumatologic: No pertinent hx Infectious disease: No pertinent hx Renal/: Benign prostatic enlarg. Endocrine: No pertinent hx Past Surgical History Hernia Repair, Colectomy, Other Family History Diabetes, Heart Disease Social History ALCOHOL: Occasional Drugs: None Lives: with Family ALLERGY: NKDA MEDICATIONS: Refer to [facility] REVIEW OF SYSTEMS: Constitutional: Obesity. Head: No recent traumatic brain or head injury. Skin: No edema, or rash. Ear: No infection, tinnitus. Eyes: No vision loss, or diplopia. Nose: No bleeding or purulent discharges. Hearing: No hearing decrease. Neck: No injury. Cardiac: CHF, AFib Pulmonary: CPOD. GI: No GI Ulcer, GI bleeding Urinary/genital: No dysuria, incontinence, urinary retention. Endocrine: Obesity. Skeletomuscular: back pain. Neurological: see HP. Psychiatric: Denies drug use/abuse. Otherwise, not [id number] review of systems. PHYSICAL EXAMINATION: General appearance in subacute distress. HEENT: Normocephalic and nontraumatic. Eyes, nose, ears, and throat are unremarkable. Neck is supple. No lymphadenopathy. No Crepitus. Cardiovascular: S1, S2. Pulmonary: Off vent. Breath sounds decreased. Abdomen: Bowel sounds are positive. Extremities: Edema. No restriction of range of motion NEUROLOGICAL EXAMINATION: Awake. On NC 02. Able to understand some questions. Not fully oriented to time, place but knew person. PERRL. EOMI. CN: no focal findings. Muscle tone: Mildly decreased. Muscle strength: 3-4. DTR: 0-1 Plantar reflex: Flexor response bilaterally Gait: Not able to walk. Sensory exam: no acute abnormal findings. No cerebellar signs elicited. F-T-N test not performed due to not able to perform the test. Objective Objective Vital Signs Date Time Temp Pulse Resp B/P (MAP) Pulse Ox O2 Delivery O2 Flow Rate FiO2 02/16/19 13:18 112 186/100 02/16/19 12:19 95 Nasal Cannula 5.0 02/16/19 12:00 27 02/16/19 07:00 99.1 99.1 Intake and Output 02/16/19 07:00 Intake Total 2707.8 ml Output Total 7140 ml Balance -4432.2 ml IV Total 2707.8 ml Output Urine Total 7140 ml Vitals Signs Vitals VS - Last 72 Hours, by Label Date Time Temp Pulse Resp B/P (MAP) Pulse Ox O2 Delivery O2 Flow Rate FiO2 02/16/19 13:18 112 186/100 02/16/19 12:19 95 Nasal Cannula 5.0 02/16/19 12:11 106 186/100 02/16/19 12:00 5.0 02/16/19 12:00 Nasal Cannula 02/16/19 12:00 106 27 167/99 (121) 91 Nasal Cannula 6.0 02/16/19 11:12 106 186/100 02/16/19 11:00 114 27 179/141 (154) 92 Nasal Cannula 6.0 02/16/19 10:00 102 27 151/100 (117) 96 BiPAP/CPAP 02/16/19 09:00 98 27 154/94 (114) 96 BiPAP/CPAP 02/16/19 08:15 96 BiPAP/CPAP 02/16/19 08:00 123 27 184/98 (126) 96 BiPAP/CPAP 02/16/19 08:00 Bi-pap 02/16/19 08:00 5.0 02/16/19 07:56 123 165/98 02/16/19 07:00 99.1 122 27 174/96 (122) 96 BiPAP/CPAP 99.1 02/16/19 06:00 123 27 165/98 (120) 96 BiPAP/CPAP 02/16/19 05:34 96 BiPAP/CPAP 02/16/19 05:00 107 31 172/100 (124) 95 BiPAP/CPAP 02/16/19 04:03 98.0 114 31 153/100 (117) 96 BiPAP/CPAP 98.0 02/16/19 04:00 Bi-pap 02/16/19 03:07 102 182/92 02/16/19 03:00 102 37 182/92 (122) 94 BiPAP/CPAP 02/16/19 02:55 97 BiPAP/CPAP 02/16/19 02:35 32 97 BiPAP/CPAP 5.0 02/16/19 02:05 32 97 Ventilator 02/16/19 02:00 117 37 166/107 (126) 91 BiPAP/CPAP 02/16/19 01:45 97 BiPAP/CPAP 02/16/19 01:00 109 24 159/91 (113) 94 BiPAP/CPAP 02/15/19 23:59 Bi-pap 02/15/19 23:59 97.9 105 24 162/90 (114) 94 BiPAP/CPAP 97.9 02/15/19 23:30 97 BiPAP/CPAP 02/15/19 23:23 101 155/80 02/15/19 23:00 101 24 155/80 (105) 95 BiPAP/CPAP 02/15/19 22:09 94 182/81 02/15/19 22:00 94 18 182/81 (114) 98 BiPAP/CPAP 02/15/19 21:30 96 BiPAP/CPAP 02/15/19 21:00 87 18 190/82 (118) 93 BiPAP/CPAP 02/15/19 20:00 Bi-pap 02/15/19 20:00 97.7 89 32 171/97 (121) 95 BiPAP/CPAP 97.7 02/15/19 19:37 92 BiPAP/CPAP 02/15/19 19:34 32 92 BiPAP/CPAP 02/15/19 19:00 101 18 171/72 (105) 92 BiPAP/CPAP 02/15/19 18:22 96 BiPAP/CPAP 02/15/19 18:03 152/88 (109) 02/15/19 17:59 98 5.0 02/15/19 17:07 98 5.0 02/15/19 17:06 93 172/91 02/15/19 17:00 88 18 152/88 (109) 45 BiPAP/CPAP 5.0 02/15/19 16:54 98 BiPAP/CPAP 02/15/19 16:00 93 20 172/91 (118) 45 BiPAP/CPAP 5.0 02/15/19 16:00 Bi-pap 5.0 02/15/19 16:00 5.0 02/15/19 14:00 82 34 157/93 (114) 99 BiPAP/CPAP 02/15/19 13:43 151/95 02/15/19 13:33 95 BiPAP/CPAP 02/15/19 12:00 Bi-pap 02/15/19 12:00 99.1 90 34 152/88 (109) 100 BiPAP/CPAP 99.1 02/15/19 11:30 100 BiPAP/CPAP 02/15/19 10:00 98 34 164/95 (118) 94 BiPAP/CPAP 02/15/19 08:00 Bi-pap 02/15/19 08:00 98.9 78 26 164/90 (114) 93 BiPAP/CPAP 98.9 02/15/19 07:35 98 BiPAP/CPAP 02/15/19 07:00 90 34 163/72 (102) 89 BiPAP/CPAP Laboratory Laboratory Laboratory Tests Test 02/16/19 05:40 White Blood Count 14.2 x10^3/uL (4.0-11.0) Red Blood Count 3.16 x10^6/uL (4.30-5.70) Hemoglobin 9.4 g/dL (13.0-17.5) Hematocrit 29.8 % (39.0-53.0) Mean Corpuscular Volume 94 fL (79-100) Mean Corpuscular Hemoglobin 30 pg (25-35) Mean Corpuscular Hemoglobin Concent 32 g/dL (31-37) Red Cell Distribution Width 14.4 % (11.5-14.5) Platelet Count 499 x10^3/uL (140-400) Neutrophils (%) (Auto) 84 % (31-73) Lymphocytes (%) (Auto) 7 % (24-48) Monocytes (%) (Auto) 8 % (0-9) Eosinophils (%) (Auto) 1 % (0-3) Basophils (%) (Auto) 1 % (0-3) Neutrophils # (Auto) 11.9 x10^3uL (1.8-7.7) Lymphocytes # (Auto) 0.9 x10^3/uL (1.0-4.8) Monocytes # (Auto) 1.1 x10^3/uL (0.0-1.1) Eosinophils # (Auto) 0.1 x10^3/uL (0.0-0.7) Basophils # (Auto) 0.1 x10^3/uL (0.0-0.2) Sodium Level 149 mmol/L (136-145) Potassium Level 3.7 mmol/L (3.5-5.1) Chloride Level 107 mmol/L (98-107) Carbon Dioxide Level 34 mmol/L (21-32) Anion Gap 8 (6-14) Blood Urea Nitrogen 13 mg/dL (8-26) Creatinine 0.5 mg/dL (0.7-1.3) Estimated GFR (Cockcroft-Gault) 169.6 Glucose Level 130 mg/dL (70-99) Calcium Level 9.2 mg/dL (8.5-10.1) Phosphorus Level 3.6 mg/dL (2.6-4.7) Magnesium Level 2.0 mg/dL (1.8-2.4) Microbiology 02/12/19 Blood Culture - Preliminary, Resulted NO GROWTH AFTER 4 DAYS 02/09/19 - Final, Complete 02/14/19 Aerobic Culture, Resulted Pending 02/14/19 Aerobic Culture Result 1 (TG), Resulted Pending 02/14/19 Gram Stain - Final, Resulted 02/14/19 Gram Stain Result 1 (TG) - Final, Resulted 02/14/19 Gram Stain Result 2 (TG) - Final, Resulted Medication Medications Current Medications Digoxin (Lanoxin) 125 mcg DAILY IV Last administered on 02/16/19at 13:18; Start 02/16/19 at 13:30 Furosemide (Lasix) 40 mg 1X ONCE IVP Last administered on 02/15/19at 16:36; Start 02/15/19 at 14:30; Stop 02/15/19 at 14:31; Status DC Furosemide (Lasix) 40 mg DAILY IVP Last administered on 02/16/19 07:57; Start 02/16/19 at 09:00 Info (Tpn Per Pharmacy) 1 each PRN DAILY PRN MC SEE COMMENTS Last administered on 02/16/19at 13:10; Start 02/15/19 at 14:30 Metoprolol Tartrate (Lopressor Vial) 5 mg Q6HRS IVP Last administered on at 11:12; Start 02/16/19 at 08:00 Multi-Ingredient Ointment (Analgesic [place]) 1 heriberto PRN QID PRN TP MUSCLE PAIN Last administered on 02/16/19at 13:18; Start 02/16/19 at 11:45 Potassium Chloride 70 meq/ Potassium Phosphate 13.6 mmol/Magnesium Sulfate 10 meq/ Calcium Gluconate 10 meq/ Multivitamins 10 ml/Chromium/ Copper/Manganese/ Seleni/Zn 1 ml/ Total Parenteral Nutrition/Amino Acids/Dextrose/ Fat Emulsion Intravenous 1,200 ml @ 50 mls/hr TPN CONT IV ; Start 02/16/19 at 22:00; Stop 02/17/19 at 21:59 Sodium Chloride 70 meq/Potassium Chloride 70 meq/ Potassium Phosphate 13.6 mmol/ Magnesium Sulfate 10 meq/ Calcium Gluconate 10 meq/ Multivitamins 10 ml/Chromium / Copper/Manganese/ Seleni/Zn 1 ml/ Total Parenteral Nutrition/Amino Acids/ Dextrose/ Fat Emulsion Intravenous 1,512 ml @ 63 mls/hr TPN CONT IV Last administered on 02/15/19at 21:14; Start 02/15/19 at 22:00; Stop 02/16/19 at 21:59 Comment Review of Relevant I have reviewed the following items valerie (where applicable) has been applied. LIZANDRO ROSENBERG MD Feb 16, 2019 13:38
--- NOTE | 2019-02-16 13:46 | PDOC ---
ICU PROGRESS NOTES Subjective remains extubated, speech evaluating, on TPN, monitor still showing Afib but rate 110s Objective Objective awake, alert lungs clear anteriorly, no JVD cardiac cath rn - afib, rate 120 abd obese but soft and non distended, active bowel sounds present feet warm, edema improved Stratton in place with excellent output Vitals Vital Signs Date Time Temp Pulse Resp B/P (MAP) Pulse Ox O2 Delivery O2 Flow Rate FiO2 02/16/19 13:18 112 186/100 02/16/19 12:19 95 Nasal Cannula 5.0 02/16/19 12:00 27 02/16/19 07:00 99.1 99.1 Input & Output Intake and Output 02/16/19 07:00 Intake Total 2707.8 ml Output Total 7140 ml Balance -4432.2 ml IV Total 2707.8 ml Output Urine Total 7140 ml Ventilator Settings O2 Flow Rate: 5.0 Oxygen Delivery Device: Nasal Cannula O2 Humdified: HME Temperature (97-99 F): Yes FiO2: 40 SpO2: 95 Stress Ulcer Prophylaxis Stress Ulcer Prophylaxis yes Imaging Imaging CXR essentially unchanged today Labs Labs K+ now normal, WBC up Medications Medications Current Medications Digoxin (Lanoxin) 125 mcg DAILY IV Last administered on 02/16/19 13:18; Start 02/16/19 at 13:30 Furosemide (Lasix) 40 mg 1X ONCE IVP Last administered on 02/15/19 16:36; Start 02/15/19 at 14:30; Stop 02/15/19 at 14:31; Status DC Furosemide (Lasix) 40 mg DAILY IVP Last administered on 02/16/19 07:57; Start 02/16/19 at 09:00 Info (Tpn Per Pharmacy) 1 each PRN DAILY PRN MC SEE COMMENTS Last administered on 02/16/19 13:10; Start 02/15/19 at 14:30 Metoprolol Tartrate (Lopressor Vial) 5 mg Q6HRS IVP Last administered on 11:12; Start 02/16/19 at 08:00 Multi-Ingredient Ointment (Analgesic [place]) 1 hreiberto PRN QID PRN TP MUSCLE PAIN Last administered on 02/16/19 13:18; Start 02/16/19 at 11:45 Potassium Chloride 70 meq/ Potassium Phosphate 13.6 mmol/Magnesium Sulfate 10 meq/ Calcium Gluconate 10 meq/ Multivitamins 10 ml/Chromium/ Copper/Manganese/ Seleni/Zn 1 ml/ Total Parenteral Nutrition/Amino Acids/Dextrose/ Fat Emulsion Intravenous 1,200 ml @ 50 mls/hr TPN CONT IV ; Start 02/16/19 at 22:00; Stop 02/17/19 at 21:59 Sodium Chloride 70 meq/Potassium Chloride 70 meq/ Potassium Phosphate 13.6 mmol/ Magnesium Sulfate 10 meq/ Calcium Gluconate 10 meq/ Multivitamins 10 ml/Chromium / Copper/Manganese/ Seleni/Zn 1 ml/ Total Parenteral Nutrition/Amino Acids/ Dextrose/ Fat Emulsion Intravenous 1,512 ml @ 63 mls/hr TPN CONT IV Last administered on 02/15/19at 21:14; Start 02/15/19 at 22:00; Stop 02/16/19 at 21:59 Physical Exam ROS: No Nausea, No Chest Pain, No Abdominal Pain, No Increase Cough General: Alert Lungs: Clear, Other Cardiovascular: S1, S2 Abdomen: Soft, Non-tender Skin: Warm, Cool (feet) Neuro Exam: Alert Impression . acute respiratory failure - presumed aspiration with pneumonia NSTEMI acute encephalopathy - possibly infectious likely aspiration pneumonitis , 02/13 CXR showing increased right basilar infiltrate which is likely source of his fever shock liver COPD recent spinal abscess s/p lumbar lami but sed rate had returned to normal [employer] and he was nearly finished with 45 day course of antibiotics, MRI suggests discitis/osteomyelitis at L4-5 but now determined to be routine healing acute flare of lumbar back pain last week without injury requiring an increase in pain meds for control obesity ADILENE hx of alcoholism constipation fever Plan . s/p code blue - bag and mask, mechanical ventilation x 48 hrs, then off 48 hrs then reintubated 02/08, extubated 02/14/19 - ok to transfer out of ICU acute respiratory failure - improved, presumed aspiration - continue antibiotics NSTEMI per enzymes- cardiology following acute encephalopathy - improving, LP not done as determined to not be necessary likely aspiration pneumonitis - continue antibiotics shock liver - near baseline - monitor COPD - continue neb treatments recent spinal abscess s/p lumbar lami but sed rate had returned to normal [employer] and he was nearly finished with 45 day course of antibiotics, rechecked sed rate , consulted Dr. Boyd who did not feel MRI findings were significant to current case acute flare of lumbar back pain last week without injury requiring an increase in pain meds for control - MRI L-spine did not show acute cause - pain now controlled obesity ADILENE - CPAP, Bipap prn hx of alcoholism - I am unaware of him drinking alcohol while at [facility] and admission alcohol level was undetectable anemia - stable AL - resolved, he was taking unprescribed NSAIDS, osteoBiflex gummies from home at [facility] for pain Afib/RVR - rate controlled with meds constipation per KUB imaging - bowels moving fever - cultures repeated, PICC replaced with central line edema - continue lasix diuresis hypokalemia - replace as needed right upper extremity complex fluid collection leukocytosis - monitor, cultures negative, continue antibiotics Roseann JAY MD Feb 16, 2019 13:46
[2019-02-16] MEDS: ENOXAPARIN 40 MG/0.4 ML SYRINGE. SQ SCH (16:41)
[2019-02-16] MEDS ORDERED: TOTAL PARENTERAL NUTRITION IV SCH ×9 (22:00)
[2019-02-16] MEDS ORDERED: AMINO ACID IV SCH ×9 (22:00)
[2019-02-16] MEDS ORDERED: DEXTROSE 70% IV SCH ×9 (22:00)
[2019-02-16] MEDS ORDERED: [UNRECOGNIZED DRUG - OTHER] IV SCH ×9 (22:00)
[2019-02-17] VITALS: BP 155/88
[2019-02-17] MEDS: METOPROLOL TARTRATE 5 MG/5 ML VIAL. IVP SCH ×2 (00:01→05:22)
[2019-02-17] MEDS: MORPHINE SULFATE 2 MG/ML VIAL. IV PRN ×2 (01:47→09:15)
[2019-02-17 04:00] VITALS: BP 150/89
[2019-02-17] MEDS: VANCOMYCIN 1.5 GM in IV NORMAL SALINE 500ML BAG 500 ML IV SCH (04:08)
[2019-02-17 04:33] LABS: BASO # 0.1 x10^3/uL (0.0-0.2); BASO % 1 % (0-3); EOS # 0.2 x10^3/uL (0.0-0.7); EOS % 2 % (0-3); HEMATOCRIT 28.4 % (39.0-53.0); HEMOGLOBIN 9.1 g/dL (13.0-17.5); LYMPH # 0.8 x10^3/uL (1.0-4.8); LYMPH % 7 % (24-48); MEAN CORPUSCULAR HEMOGLOBIN 31 pg (25-35); MEAN CORPUSCULAR HGB CONC 32 g/dL (31-37); MEAN CORPUSCULAR VOLUME 95 fL (79-100); MONO % 9 % (0-9); NEUT # 9.6 x10^3uL (1.8-7.7); NEUT % 82 % (31-73); PLATELET COUNT 493 x10^3/uL (140-400); RED CELL DISTRIBUTION WIDTH 14.7 % (11.5-14.5); WHITE BLOOD COUNT 11.7 x10^3/uL (4.0-11.0)
[2019-02-17 05:03] LABS: CREATININE 0.4 mg/dL (0.7-1.3); GFR 219.4; PHOSPHORUS 3.1 mg/dL (2.6-4.7); POTASSIUM 3.3 mmol/L (3.5-5.1)
[2019-02-17] MEDS: CEFEPIME HCL IV Push 2 GM VIAL. IVP SCH ×2 (05:22→14:21)
[2019-02-17] MEDS: BUDESONIDE 0.5 MG/2 ML NEBU. NEB SCH (07:34)
[2019-02-17] MEDS: IPRATRPIUM/ALBUTEROL 0.5/2.5MG 3 ML NEBU. NEB SCH ×2 (07:34→11:14)
[2019-02-17] MEDS: FAMOTIDINE 20 MG/2 ML VIAL IVP SCH (07:34)
[2019-02-17] MEDS: hydrALAZINE 20 MG/ML VIAL. IVP PRN (07:35)
[2019-02-17] MEDS: levETIRAcetam 500 MG in IV DEXTROSE 5% 100ML 100 ML IV SCH (07:36)
[2019-02-17] MEDS: FUROSEMIDE 40 MG/4 ML VIAL. IVP SCH (07:36)
[2019-02-17] MEDS: DIGOXIN IV 500 MCG/2 ML AMPUL. IV SCH (07:36)
--- NOTE | 2019-02-17 07:49 | PDOC ---
Infectious Disease Note Subjective: Subjective Pt again on bipap denies any pain no fevers ROS: ROS D/W RN Vital Signs: Vital Signs Vital Signs Date Time Temp Pulse Resp B/P (MAP) Pulse Ox O2 Delivery O2 Flow Rate FiO2 02/17/19 07:36 120 181/117 02/17/19 05:56 94 BiPAP/CPAP 02/17/19 04:01 5.0 02/17/19 04:00 98.0 27 98.0 Physical Exam: PHYSICAL EXAM GENERAL: alert awake on bipap HEENT: Pupils equal,anicteric LUNGS: Diminished aeration. HEART: S1 and S2. ABDOMEN: Obese, soft. No grimace or guarding to palpation, with bowel sounds present. GENITOURINARY: Stratton in place. EXTREMITIES: Generalized edema,,No cyanosis. SKIN: Warm, without rash. NEUROLOGIC: sedated on vent Central line in place 02/14 Medications: Inpatient Meds: Current Medications Medications (Trade) Dose Ordered Sig/Sheryl Start Time Stop Time Status Last Admin Dose Admin Acetaminophen (Tylenol) 650 mg PRN Q6HRS PRN 02/10/19 17:00 02/14/19 11:58 650 MG Acyclovir Sodium 820 mg/Dextrose 116.4 ml @ 116.4 mls/ hr Q8HRS 02/10/19 12:00 02/16/19 07:13 DC 02/16/19 05:29 116.4 MLS/HR Albuterol Sulfate (Ventolin Neb Soln) 2.5 mg 1X ONCE 02/07/19 02:15 02/07/19 02:16 DC 02/07/19 02:13 2.5 MG Albuterol/ Ipratropium (Duoneb) 3 ml 1X ONCE 02/15/19 05:30 02/15/19 05:31 DC 02/15/19 05:27 3 ML Amino Acids/ Glycerin/ Electrolytes 1,000 ml @ 80 mls/hr [id number] 02/07/19 08:30 02/08/19 17:18 DC 02/08/19 11:27 80 MLS/HR Aspirin (Aspirin) 150 mg DAILY 02/08/19 11:30 02/11/19 13:33 DC 02/11/19 12:06 150 MG Aspirin (Chase Aspirin) 325 mg [id number] 02/12/19 08:00 02/16/19 07:57 325 MG Aspirin (Children'S Aspirin) 81 mg [id number] 02/06/19 09:30 02/08/19 11:04 DC Atropine Sulfate (ATROPINE 0.5mg SYRINGE) 0.5 mg PRN Q5MIN PRN 02/06/19 13:30 Budesonide (Pulmicort) 0.5 mg RTBID 02/05/19 08:00 02/17/19 07:34 0.5 MG Calcium Gluconate (Calcium Gluconate) 1,000 mg 1X ONCE 02/04/19 16:00 02/04/19 16:01 DC 02/04/19 17:01 1,000 MG Cefepime HCl (Maxipime) 2 gm Q8HRS 02/10/19 11:00 02/17/19 05:22 2 GM Dexmedetomidine HCl 200 mcg/ Sodium Chloride 50 ml @ 0 mls/hr CONT PRN 02/06/19 13:30 02/14/19 13:23 DC 02/09/19 08:58 13 MLS/HR Digoxin (Lanoxin) 125 mcg DAILY 02/16/19 13:30 02/17/19 07:36 125 MCG Dopamine HCl/ Dextrose 250 ml @ As Directed STK-MED ONCE 02/04/19 17:25 02/04/19 17:26 DC Enoxaparin Sodium (Lovenox 40mg Syringe) 40 mg Q24H 02/09/19 16:00 02/16/19 16:41 40 MG Etomidate (Amidate) 20 mg 1X ONCE 02/04/19 16:45 02/04/19 16:46 DC 02/04/19 15:00 20 MG Famotidine (Pepcid Vial) 20 mg BID 02/09/19 21:00 02/17/19 07:34 20 MG Fentanyl Citrate 30 ml @ 0 mls/hr CONT PRN 02/08/19 13:00 UNV Fentanyl Citrate (Fentanyl 2ml Vial) 50 mcg PRN Q3HRS PRN 02/06/19 11:45 02/15/19 17:07 50 MCG Furosemide (Lasix) 40 mg DAILY 02/16/19 09:00 02/17/19 07:36 40 MG Gadobutrol (Gadavist) 6 mmol 1X ONCE 02/08/19 15:00 02/08/19 15:01 DC 02/08/19 15:12 6 MMOL Haloperidol Lactate (Haldol Inj) 2.5 mg 1X PRN PRN 02/06/19 16:30 UNV Heparin Sodium (Porcine) (Heparin Sodium) 3,250 unit PRN Q6HRS PRN 02/05/19 01:30 02/06/19 12:32 DC 02/05/19 22:31 3,250 UNIT Heparin Sodium/ Dextrose 500 ml @ 0 mls/hr CONT PRN 02/04/19 22:45 02/06/19 12:32 DC 02/06/19 01:53 50 MLS/HR Hydralazine HCl (Apresoline Inj) 10 mg PRN Q3HRS PRN 02/06/19 11:45 02/17/19 07:35 10 MG Info (Anti-Coagulation Monitoring By Pharmacy) 1 each PRN DAILY PRN 02/04/19 22:45 02/06/19 12:34 DC 02/06/19 07:57 1 EACH Info (Tpn Per Pharmacy) 1 each PRN DAILY PRN 02/15/19 14:30 02/16/19 13:10 1 EACH Levetiracetam 1000 mg/Dextrose 110 ml @ 440 mls/hr 1X ONCE 02/04/19 16:00 02/04/19 16:14 DC 02/04/19 16:54 440 MLS/HR Levetiracetam 500 mg/Dextrose 105 ml @ 420 mls/hr Q12HR 02/05/19 16:30 02/17/19 07:36 420 MLS/HR Lidocaine HCl (Lidocaine 1% 20ml Vial) 20 ml STK-MED ONCE 02/09/19 10:52 02/09/19 10:53 DC Lidocaine HCl (Lidocaine 2% Viscous) 100 ml STK-MED ONCE 02/09/19 10:52 02/09/19 10:53 DC Lorazepam (Ativan) 2 mg PRN Q1HR PRN 02/08/19 13:00 02/17/19 07:34 2 MG Magnesium Sulfate/ Dextrose 100 ml @ 100 mls/hr 1X ONCE 02/09/19 15:45 02/09/19 16:44 DC 02/09/19 15:57 100 MLS/HR Metoprolol Tartrate (Lopressor Vial) 5 mg Q6HRS 02/16/19 08:00 02/17/19 05:22 5 MG Metoprolol Tartrate (Lopressor) 25 mg Q6HRS 02/11/19 18:00 02/16/19 07:34 DC 02/14/19 11:58 25 MG Midazolam HCl 100 ml @ 0 mls/hr CONT PRN 02/08/19 13:00 UNV Midazolam HCl (Versed) 2 mg 1X ONCE 02/04/19 17:45 02/04/19 17:46 DC Morphine Sulfate (Morphine Sulfate) 4 mg PRN Q1HR PRN 02/08/19 13:00 02/10/19 21:05 4 MG Multi-Ingred Cream/Lotion/Oil/ Oint (Artificial Tears Eye Ointment) 1 heriberto PRN Q1HR PRN 02/08/19 18:45 Multi-Ingredient Ointment (Analgesic [place]) 1 heriberto PRN QID PRN 02/16/19 11:45 02/16/19 13:18 1 HERIBERTO Naloxone HCl (Narcan) 2 mg 1X ONCE 02/04/19 16:45 02/04/19 16:46 DC 02/04/19 14:57 2 MG Nicotine (Nicoderm Cq 21mg) 1 patch DAILY 02/07/19 11:45 02/14/19 11:20 DC 02/14/19 08:44 1 PATCH Norepinephrine Bitartrate 250 ml @ 1.875 mls/ hr CONT PRN 02/04/19 17:30 Piperacillin Sod/ Tazobactam Sod (Zosyn Per Pharmacy) 1 each PRN DAILY PRN 02/04/19 15:15 02/10/19 13:53 DC Piperacillin Sod/ Tazobactam Sod 3.375 gm/Sodium Chloride 50 ml @ 100 mls/hr Q6HRS 02/05/19 00:00 02/10/19 10:24 DC 02/10/19 05:12 100 MLS/HR Piperacillin Sod/ Tazobactam Sod 4.5 gm/Sodium Chloride 100 ml @ 200 mls/hr 1X ONCE 02/04/19 16:00 02/04/19 16:29 DC 02/04/19 15:33 200 MLS/HR Potassium Chloride 70 meq/ Potassium Phosphate 13.6 mmol/Magnesium Sulfate 10 meq/ Calcium Gluconate 10 meq/ Multivitamins 10 ml/Chromium/ Copper/Manganese/ Seleni/Zn 1 ml/ Total Parenteral Nutrition/Amino Acids/Dextrose/ Fat Emulsion Intravenous 1,200 ml @ 50 mls/hr TPN CONT 02/16/19 22:00 02/17/19 21:59 02/16/19 22:00 50 MLS/HR Potassium Chloride/Water 50 ml @ 50 mls/hr Q1H 02/17/19 08:00 02/17/19 09:59 Potassium Chloride (KCl Oral Soln) 40 meq 1X ONCE 02/09/19 15:00 02/09/19 15:01 DC 02/09/19 14:49 40 MEQ Propofol 100 ml @ 0 mls/hr CONT PRN 02/08/19 13:00 UNV Propofol (Diprivan) 1,000 mg STK-MED ONCE 02/04/19 19:00 02/07/19 09:01 DC Rocuronium [place] (Zemuron) 100 mg 1X ONCE 02/04/19 16:45 02/04/19 16:46 DC 02/04/19 15:00 100 MG Sodium Bicarbonate (Sodium Bicarb Adult 8.4% Syr) 50 meq 1X ONCE 02/07/19 11:45 02/07/19 11:46 DC 02/07/19 12:16 50 MEQ Sodium Chloride 70 meq/Potassium Chloride 70 meq/ Potassium Phosphate 13.6 mmol/Magnesium Sulfate 10 meq/ Calcium Gluconate 10 meq/ Multivitamins 10 ml/Chromium/ Copper/Manganese/ Seleni/Zn 1 ml/ Total Parenteral Nutrition/Amino Acids/Dextrose/ Fat Emulsion Intravenous 1,512 ml @ 63 mls/hr TPN CONT 02/15/19 22:00 02/16/19 21:59 DC 02/15/19 21:14 63 MLS/HR Vancomycin HCl (Vanco Per Pharmacy) 1 each PRN DAILY PRN 02/10/19 10:30 02/16/19 10:00 1 EACH Vancomycin HCl (Vancomycin Trough Level) 1 each 1X ONCE 02/14/19 11:30 02/14/19 11:31 DC 02/14/19 11:30 1 EACH Vancomycin HCl 1.5 gm/Sodium Chloride 500 ml @ 250 mls/hr Q8H 02/13/19 20:00 02/17/19 04:08 250 MLS/HR Vancomycin HCl 1.75 gm/Sodium Chloride 500 ml @ 250 mls/hr Q12H 02/12/19 00:00 02/13/19 14:00 DC 02/13/19 12:33 250 MLS/HR Vancomycin HCl 2 gm/Sodium Chloride 500 ml @ 250 mls/hr 1X ONCE 02/10/19 11:00 02/10/19 12:59 DC 02/10/19 11:23 250 MLS/HR Vecuronium [place] (Norcuron Bolus) 6 mg PRN Q2HR PRN 02/08/19 13:45 02/14/19 18:24 DC 02/09/19 22:30 6 MG Labs: Lab Laboratory Tests Test 02/17/19 04:15 White Blood Count 11.7 x10^3/uL (4.0-11.0) Red Blood Count 3.00 x10^6/uL (4.30-5.70) Hemoglobin 9.1 g/dL (13.0-17.5) Hematocrit 28.4 % (39.0-53.0) Mean Corpuscular Volume 95 fL (79-100) Mean Corpuscular Hemoglobin 31 pg (25-35) Mean Corpuscular Hemoglobin Concent 32 g/dL (31-37) Red Cell Distribution Width 14.7 % (11.5-14.5) Platelet Count 493 x10^3/uL (140-400) Neutrophils (%) (Auto) 82 % (31-73) Lymphocytes (%) (Auto) 7 % (24-48) Monocytes (%) (Auto) 9 % (0-9) Eosinophils (%) (Auto) 2 % (0-3) Basophils (%) (Auto) 1 % (0-3) Neutrophils # (Auto) 9.6 x10^3uL (1.8-7.7) Lymphocytes # (Auto) 0.8 x10^3/uL (1.0-4.8) Monocytes # (Auto) 1.0 x10^3/uL (0.0-1.1) Eosinophils # (Auto) 0.2 x10^3/uL (0.0-0.7) Basophils # (Auto) 0.1 x10^3/uL (0.0-0.2) Sodium Level 149 mmol/L (136-145) Potassium Level 3.3 mmol/L (3.5-5.1) Chloride Level 108 mmol/L (98-107) Carbon Dioxide Level 36 mmol/L (21-32) Anion Gap 5 (6-14) Blood Urea Nitrogen 15 mg/dL (8-26) Creatinine 0.4 mg/dL (0.7-1.3) Estimated GFR (Cockcroft-Gault) 219.4 Glucose Level 139 mg/dL (70-99) Calcium Level 9.0 mg/dL (8.5-10.1) Phosphorus Level 3.1 mg/dL (2.6-4.7) Magnesium Level 2.0 mg/dL (1.8-2.4) Objective: Assessment: Sepsis with hypotension, POA, ?? likely had dehydration and too much pain meds. off pressers. Procalcitonin 0.11 Fever,,,? line infection. bains cultures NGTD Suspect aspiration Postsurgical spine infection with epidural abscess, s/p I and D on 12/30/18. ENTEROCOCCUS ampS,,,was undergoing TX with ampicillin at . Completed 6 weeks treatment on 02/10. -Original back surgery was done on 12/09/2018. (microdiscectomy with decompression of the left L4 and L5 nerve roots). -recent ESR up to 76 -Lumbar spine MRI on 02/08 concerning for discitis/osteo at L4-5; changes considered usual findings after treatment Acute respiratory failure s/p re-intubation,,02/08 electively for MRI. s/p bronchoscopy 02/09. cultures no growth Acute encephalopathy NSTEMI AL,,,improved Shock liver Myoclonic movements, on Keppra Hypertension. Atrial fibrillation. Obstructive sleep apnea. Morbid obesity. Chronic obstructive pulmonary disease. RUE swelling. US showed a 7.6 x 1.5 x 2.1 cm heterogeneous echogenicity identified lateral to the axillary the region in the soft tissue; -f/u US showed complex fluid collection measuring 2.3 cm x 0.8 cm x 7.4 cm. indeterminate significance. s/p IR drainage 02/14, sent for micro Encephalopathy metabolic improved Leucocytosis ? fever pattern has improved, could be reactive Plan: Plan of Care Continue cefepime, (abx changed on 02/10) Off acyclovir ( 02/16) Previously on Zosyn, ampicillin ( before admission) DC IV Vanc Cultures NGTD Monitor labs/VS/temp Supportive care D/W Nursing ASHLEY JONES MD Feb 17, 2019 07:49
[2019-02-17 07:51] LABS: BASE EXCESS ABG 8 mmol/L (-3-3); HCO3 ABG 37 mmol/L (21-28); PO2 ABG 68 mmHg (65-108); SAT O2 ABG 89 % (92-99)
--- NOTE | 2019-02-17 07:57 | RAD ---
Portable chest, 02/17/2019: HISTORY: Respiratory failure, shortness of breath Comparison is made to yesterday's study. A right jugular central venous catheter extends into the superior vena cava. The heart is enlarged. There are moderate bilateral pulmonary infiltrates with increasing loss of definition of the underlying pulmonary vascularity. The findings suggest pulmonary edema. Hazy basilar opacities are probably due to associated pleural fluid, although the diaphragm regions were not completely included on the current exam. There is no evidence of pneumothorax. IMPRESSION: Slight interval worsening of the moderate bilateral pulmonary infiltrates most compatible with pulmonary edema due to congestive heart failure. Electronically signed by: Javier Orlando MD (02/17/2019 7:55 AM) [facility]
[2019-02-17] MEDS: ASPIRIN 325 MG TABLET PO SCH (07:58)
[2019-02-17] MEDS: POTASSIUM CHL 20MEQ PREMIX 50 ML IV SCH ×2 (07:58→09:15)
[2019-02-17 08:48] VITALS: BP 181/117
--- NOTE | 2019-02-17 10:58 | PDOC ---
MATI WINTERS BUS MATRON 02/17/19 1058: CARDIO Progress Notes Date and Time Date of Service 02/17/19 Time of Evaluation 1020 Subjective Subjective: Other (on BiPAP) Vitals Vitals Vital Signs Date Time Temp Pulse Resp B/P (MAP) Pulse Ox O2 Delivery O2 Flow Rate FiO2 02/17/19 10:19 94 BiPAP/CPAP 02/17/19 09:59 5.0 02/17/19 08:48 98.3 120 181/117 (138) 98.3 02/17/19 04:00 27 Weight Weight [ ] Input and Output Intake and Output Intake and Output 02/17/19 07:00 Intake Total 2106 ml Output Total 4845 ml Balance -2739 ml Intake Oral 0 ml IV Total 2106 ml Output Urine Total 4845 ml Laboratory Labs Laboratory Tests Test 02/17/19 04:15 White Blood Count 11.7 x10^3/uL (4.0-11.0) Red Blood Count 3.00 x10^6/uL (4.30-5.70) Hemoglobin 9.1 g/dL (13.0-17.5) Hematocrit 28.4 % (39.0-53.0) Mean Corpuscular Volume 95 fL (79-100) Mean Corpuscular Hemoglobin 31 pg (25-35) Mean Corpuscular Hemoglobin Concent 32 g/dL (31-37) Red Cell Distribution Width 14.7 % (11.5-14.5) Platelet Count 493 x10^3/uL (140-400) Neutrophils (%) (Auto) 82 % (31-73) Lymphocytes (%) (Auto) 7 % (24-48) Monocytes (%) (Auto) 9 % (0-9) Eosinophils (%) (Auto) 2 % (0-3) Basophils (%) (Auto) 1 % (0-3) Neutrophils # (Auto) 9.6 x10^3uL (1.8-7.7) Lymphocytes # (Auto) 0.8 x10^3/uL (1.0-4.8) Monocytes # (Auto) 1.0 x10^3/uL (0.0-1.1) Eosinophils # (Auto) 0.2 x10^3/uL (0.0-0.7) Basophils # (Auto) 0.1 x10^3/uL (0.0-0.2) Sodium Level 149 mmol/L (136-145) Potassium Level 3.3 mmol/L (3.5-5.1) Chloride Level 108 mmol/L (98-107) Carbon Dioxide Level 36 mmol/L (21-32) Anion Gap 5 (6-14) Blood Urea Nitrogen 15 mg/dL (8-26) Creatinine 0.4 mg/dL (0.7-1.3) Estimated GFR (Cockcroft-Gault) 219.4 Glucose Level 139 mg/dL (70-99) Calcium Level 9.0 mg/dL (8.5-10.1) Phosphorus Level 3.1 mg/dL (2.6-4.7) Magnesium Level 2.0 mg/dL (1.8-2.4) Microbiology Micro Microbiology 02/12/19 Blood Culture - Preliminary, Resulted NO GROWTH AFTER 4 DAYS 02/09/19 - Final, Complete 02/14/19 Aerobic Culture - Preliminary, Resulted 02/14/19 Aerobic Culture Result 1 (TG) - Preliminary, Resulted 02/14/19 Gram Stain - Final, Resulted 02/14/19 Gram Stain Result 1 (TG) - Final, Resulted 02/14/19 Gram Stain Result 2 (TG) - Final, Resulted Physical Exam HEENT: Neck Supple W Full Motion Chest: Symmetric LUNGS: Other (diminished bases; on BiPAP) Heart: S1S2, irregularly irregular (AFIB) Abdomen: Other (obese) Extremities: Other (mild anasarca) Neurology: alert, follow commands Assessment Assessment 1. Acute hypoxic respiratory failure; extubated 02/14; requiring BiPAP 2. Acute on chronic diastolic HF 3. Persistent AFIB; remains with intermittent RVR. 4. NSTEMI; Most probably type II, demand ischemic. 5. Post surgical epidural abscess; s/p I & D 6. Transaminitis; improved 7. Metabolic encephalopathy; better Recommendations Ongoing diuresis IV rate control therapy while NPO Continue IV Dig Increase IV metoprolol to q4 hrs. ASA for stroke prevention Outpatient ischemic evaluation Supportive care TONIO KIM MD 02/17/19 3313: CARDIO Progress Notes Plan Plan Pt. seen and examined. Agree with above [employer] note. He has persistent resp failure. Poor chcf prognosis He is not able to take p.o Continue rate control. Consider anticoagulation when more stable. Supportive care. Txf to select. He is high risk for readmission. May need trach. MATI WINTERS APRN Feb 17, 2019 10:58 TONIO KIM MD Feb 17, 2019 22:16
--- NOTE | 2019-02-17 11:01 | PDOC ---
PULMONARY PROGRESS NOTES Subjective extubated 02/06, re-intubated 02/08 EXTUBATED 02/14 OFF BIPAP ON NC NO INCREASE SOA Vitals Vital Signs Date Time Temp Pulse Resp B/P (MAP) Pulse Ox O2 Delivery O2 Flow Rate FiO2 02/17/19 10:19 94 BiPAP/CPAP 02/17/19 09:59 5.0 02/17/19 08:48 98.3 120 181/117 (138) 98.3 02/17/19 04:00 27 Comments r ROS: No Nausea, No Chest Pain, No Abdominal Pain, No Increase Cough General: Alert Lungs: Clear, Other Cardiovascular: S1, S2 Abdomen: Soft, Non-tender Neuro Exam: Alert Skin: Warm, Cool (feet) Labs Laboratory Tests Test 02/16/19 05:40 02/17/19 04:15 White Blood Count 14.2 x10^3/uL (4.0-11.0) 11.7 x10^3/uL (4.0-11.0) Red Blood Count 3.16 x10^6/uL (4.30-5.70) 3.00 x10^6/uL (4.30-5.70) Hemoglobin 9.4 g/dL (13.0-17.5) 9.1 g/dL (13.0-17.5) Hematocrit 29.8 % (39.0-53.0) 28.4 % (39.0-53.0) Mean Corpuscular Volume 94 fL (79-100) 95 fL (79-100) Mean Corpuscular Hemoglobin 30 pg (25-35) 31 pg (25-35) Mean Corpuscular Hemoglobin Concent 32 g/dL (31-37) 32 g/dL (31-37) Red Cell Distribution Width 14.4 % (11.5-14.5) 14.7 % (11.5-14.5) Platelet Count 499 x10^3/uL (140-400) 493 x10^3/uL (140-400) Neutrophils (%) (Auto) 84 % (31-73) 82 % (31-73) Lymphocytes (%) (Auto) 7 % (24-48) 7 % (24-48) Monocytes (%) (Auto) 8 % (0-9) 9 % (0-9) Eosinophils (%) (Auto) 1 % (0-3) 2 % (0-3) Basophils (%) (Auto) 1 % (0-3) 1 % (0-3) Neutrophils # (Auto) 11.9 x10^3uL (1.8-7.7) 9.6 x10^3uL (1.8-7.7) Lymphocytes # (Auto) 0.9 x10^3/uL (1.0-4.8) 0.8 x10^3/uL (1.0-4.8) Monocytes # (Auto) 1.1 x10^3/uL (0.0-1.1) 1.0 x10^3/uL (0.0-1.1) Eosinophils # (Auto) 0.1 x10^3/uL (0.0-0.7) 0.2 x10^3/uL (0.0-0.7) Basophils # (Auto) 0.1 x10^3/uL (0.0-0.2) 0.1 x10^3/uL (0.0-0.2) Sodium Level 149 mmol/L (136-145) 149 mmol/L (136-145) Potassium Level 3.7 mmol/L (3.5-5.1) 3.3 mmol/L (3.5-5.1) Chloride Level 107 mmol/L (98-107) 108 mmol/L (98-107) Carbon Dioxide Level 34 mmol/L (21-32) 36 mmol/L (21-32) Anion Gap 8 (6-14) 5 (6-14) Blood Urea Nitrogen 13 mg/dL (8-26) 15 mg/dL (8-26) Creatinine 0.5 mg/dL (0.7-1.3) 0.4 mg/dL (0.7-1.3) Estimated GFR (Cockcroft-Gault) 169.6 219.4 Glucose Level 130 mg/dL (70-99) 139 mg/dL (70-99) Calcium Level 9.2 mg/dL (8.5-10.1) 9.0 mg/dL (8.5-10.1) Phosphorus Level 3.6 mg/dL (2.6-4.7) 3.1 mg/dL (2.6-4.7) Magnesium Level 2.0 mg/dL (1.8-2.4) 2.0 mg/dL (1.8-2.4) Laboratory Tests Test 02/17/19 04:15 White Blood Count 11.7 x10^3/uL (4.0-11.0) Red Blood Count 3.00 x10^6/uL (4.30-5.70) Hemoglobin 9.1 g/dL (13.0-17.5) Hematocrit 28.4 % (39.0-53.0) Mean Corpuscular Volume 95 fL (79-100) Mean Corpuscular Hemoglobin 31 pg (25-35) Mean Corpuscular Hemoglobin Concent 32 g/dL (31-37) Red Cell Distribution Width 14.7 % (11.5-14.5) Platelet Count 493 x10^3/uL (140-400) Neutrophils (%) (Auto) 82 % (31-73) Lymphocytes (%) (Auto) 7 % (24-48) Monocytes (%) (Auto) 9 % (0-9) Eosinophils (%) (Auto) 2 % (0-3) Basophils (%) (Auto) 1 % (0-3) Neutrophils # (Auto) 9.6 x10^3uL (1.8-7.7) Lymphocytes # (Auto) 0.8 x10^3/uL (1.0-4.8) Monocytes # (Auto) 1.0 x10^3/uL (0.0-1.1) Eosinophils # (Auto) 0.2 x10^3/uL (0.0-0.7) Basophils # (Auto) 0.1 x10^3/uL (0.0-0.2) Sodium Level 149 mmol/L (136-145) Potassium Level 3.3 mmol/L (3.5-5.1) Chloride Level 108 mmol/L (98-107) Carbon Dioxide Level 36 mmol/L (21-32) Anion Gap 5 (6-14) Blood Urea Nitrogen 15 mg/dL (8-26) Creatinine 0.4 mg/dL (0.7-1.3) Estimated GFR (Cockcroft-Gault) 219.4 Glucose Level 139 mg/dL (70-99) Calcium Level 9.0 mg/dL (8.5-10.1) Phosphorus Level 3.1 mg/dL (2.6-4.7) Magnesium Level 2.0 mg/dL (1.8-2.4) Medications Active Scripts Medications Dose Route/Sig Max Daily Dose Days Date Category Unasyn 3 Gm Vial (Ampicillin Sodium/Sulbactam Na) 3 Gm Vial 2 Gm IV Q4HRS 45 01/05/19 Rx Oxycodone Hcl Immed.release (Oxycodone Hcl) 5 Mg Tablet 10 Mg PO PRN Q4HRS PRN 01/04/19 Rx Oxycontin (Oxycodone HCl) 15 Mg Tab.er.12h 15 Mg PO Q12HR 01/04/19 Rx Colace (Docusate Sodium) 100 Mg Capsule 100 Mg PO BID 30 12/09/18 Rx Hydrochlorothiazide Capsule (Hydrochlorothiazide) 12.5 Mg Capsule 25 Mg PO DAILY 11/29/18 Reported Proair Hfa Inhaler (Albuterol Sulfate) 8.5 Gm Hfa.aer.ad 2 Puff INH PRN Q6HRS PRN 11/29/18 Reported Albuterol Sulfate Neb Soln (Albuterol Sulfate) 2.5 Mg/3 Ml Vial.neb 2.5 Mg NEB PRN Q4-6HRS PRN 11/29/18 Reported Ipratropium [place] 0.2 Mg/1 Ml Solution 0.2 Mg IH PRN Q4-6HRS PRN 11/29/18 Reported Zoloft (Sertraline Hcl) 100 Mg Tablet 1 Tab PO DAILY 11/04/18 Reported Robaxin (Methocarbamol) 500 Mg Tablet 500 Mg PO QID PRN 11/04/18 Reported Azelastine Hcl 6 Ml Drops 1 Drop EACHEYE PRN DAILY PRN 11/04/18 Reported Lisinopril 10 Mg Tablet 10 Mg PO DAILY 08/12/17 Reported Lasix (Furosemide) 20 Mg Tablet 20 Mg PO DAILY 08/12/17 Reported Tamsulosin Hcl 0.4 Mg Cap.er.24h 0.4 Mg PO DAILY 08/12/17 Reported Montelukast Sodium Tablet (Montelukast Sodium) 10 Mg Tablet 10 Mg PO HS 08/12/17 Reported Metoprolol Tartrate 25 Mg Tablet 25 Mg PO BID 07/11/16 Rx Omeprazole 20 Mg Capsule.dr 20 Mg PO DAILY 07/09/16 Reported Topiramate 50 Mg Tablet 1 Tab PO BID 07/09/16 Reported Daliresp (Roflumilast) 500 Mcg Tablet 500 Mcg PO DAILY 07/09/16 Reported Comments NO CHANGE ON CXR Impression . 1. Acute respiratory failure, multifactorial in etiology. Re- Intubated 02/08 2. ENCEPHALOPATHY IMPROVING 3. Acute kidney injury 4. Elevated troponin, non-ST elevation myocardial infarction. 5. Atrial fibrillation with rapid ventricular response, now rate controlled. 6. Hyperkalemia. resolved 7. Status post back surgery, epidural abscess, incision and drainage, on antibiotic. no extension to brain on MRI 8. Chronic obstructive pulmonary disease. 9. Acute diastolic congestive heart failure. 10. sepsis, ? aspiration, s/p Bronch. no purulent secretions, cultures neg 11. Obstructive sleep apnea-hypopnea syndrome. 12. elevated LFTs improving/ shock liver, improving 13. DYSPHAGIA Plan . SPOKE WITH DR KING VASQUEZ TO TRANSFER TO [facility] FOLLOW UP WITH ME AFTER D/C FROM [facility] WILL CONTINUE BIPAP QHS AND PRN LASIX DAILY FOLLOW SPEECH INPUT NPO FOR NOW BD ANTIBX PER ID FOLLOW RENAL FUNCTION SHAKA PRIETO MD Feb 17, 2019 11:01
[2019-02-17 11:40] LABS: PCO2 ABG 78 mmHg (35-46)
[2019-02-17 11:45] VITALS: BP 153/91
[2019-02-17] MEDS ORDERED: METOPROLOL TARTRATE 5 MG/5 ML VIAL. IVP SCH (12:00)
[2019-02-17] MEDS ORDERED: FUROSEMIDE 40 MG/4 ML VIAL. IVP ONE (12:00)
[2019-02-17] MEDS: TPN PER PHARMACY MC PRN (13:24)
--- NOTE | 2019-02-17 13:54 | PDOC ---
PROGRESS NOTES Assessment Assessment Metabolic encephalopathy. Respiratory failure. Pleural effusion. Seizure. Discitis/osteomyelitis L4-5. AFib. ADILENE. COPD. CHF. Right UE fluid collection. Obesity. No evidence of acute CVA this time. RECOMMENDATIONS/PLAN: Continue medical and ID treatment. Continue Keppra 500 mg bid. OT/PT. Past Medical History Cardiovascular: AFIB, HTN Pulmonary: COPD, Other CENTRAL NERVOUS SYSTEM: Other GI: GERD Heme/Onc: Cancer Hepatobiliary: No pertinent hx Psych: Anxiety, Depression Musculoskeletal: low back pain, Osteoarthritis Rheumatologic: No pertinent hx Infectious disease: No pertinent hx Renal/: Benign prostatic enlarg. Endocrine: No pertinent hx Past Surgical History Hernia Repair, Colectomy, Other Family History Diabetes, Heart Disease Social History ALCOHOL: Occasional Drugs: None Lives: with Family ALLERGY: NKDA MEDICATIONS: Refer to [facility] REVIEW OF SYSTEMS: Constitutional: Obesity. Head: No recent traumatic brain or head injury. Skin: No edema, or rash. Ear: No infection, tinnitus. Eyes: No vision loss, or diplopia. Nose: No bleeding or purulent discharges. Hearing: No hearing decrease. Neck: No injury. Cardiac: CHF, AFib Pulmonary: CPOD. GI: No GI Ulcer, GI bleeding Urinary/genital: No dysuria, incontinence, urinary retention. Endocrine: Obesity. Skeletomuscular: back pain. Neurological: see HP. Psychiatric: Denies drug use/abuse. Otherwise, not [id number] review of systems. PHYSICAL EXAMINATION: General appearance in subacute distress. HEENT: Normocephalic and nontraumatic. Eyes, nose, ears, and throat are unremarkable. Neck is supple. No lymphadenopathy. No Crepitus. Cardiovascular: S1, S2. Pulmonary: Off vent. Breath sounds decreased. Abdomen: Bowel sounds are positive. Extremities: Edema. No restriction of range of motion NEUROLOGICAL EXAMINATION: Awake. On NC 02. Able to understand some questions. Not fully oriented to time, but knew in the hospital and knew person. PERRL. EOMI. CN: no focal findings. Muscle tone: Mildly decreased. Muscle strength: 3-4. DTR: 0-1 Plantar reflex: Flexor response bilaterally Gait: Not able to walk. Sensory exam: no acute abnormal findings. No cerebellar signs elicited. F-T-N test not performed due to not able to perform the test. Objective Objective Vital Signs Date Time Temp Pulse Resp B/P (MAP) Pulse Ox O2 Delivery O2 Flow Rate FiO2 02/17/19 12:48 5.0 02/17/19 11:45 118 153/91 02/17/19 11:15 100 BiPAP/CPAP 02/17/19 08:48 98.3 98.3 02/17/19 04:00 27 Intake and Output 02/17/19 07:00 Intake Total 2106 ml Output Total 4845 ml Balance -2739 ml Intake Oral 0 ml IV Total 2106 ml Output Urine Total 4845 ml Vitals Signs Vitals VS - Last 72 Hours, by Label Date Time Temp Pulse Resp B/P (MAP) Pulse Ox O2 Delivery O2 Flow Rate FiO2 02/17/19 12:48 5.0 02/17/19 11:45 118 153/91 02/17/19 11:15 100 BiPAP/CPAP 02/17/19 10:19 94 BiPAP/CPAP 02/17/19 09:59 94 5.0 02/17/19 09:15 94 BiPAP/CPAP 5.0 02/17/19 08:48 98.3 120 181/117 (138) 94 Nasal Cannula 98.3 02/17/19 08:47 5.0 02/17/19 08:00 Bi-pap 02/17/19 07:36 120 181/117 02/17/19 07:35 120 181/117 02/17/19 07:33 94 BiPAP/CPAP 02/17/19 05:56 94 BiPAP/CPAP 02/17/19 05:22 120 150/89 02/17/19 04:01 5.0 02/17/19 04:00 98.0 110 27 150/89 (109) 98 BiPAP/CPAP 98.0 02/17/19 03:18 94 BiPAP/CPAP 02/17/19 02:17 40 BiPAP/CPAP 02/17/19 01:47 41 94 BiPAP/CPAP 02/17/19 01:27 94 BiPAP/CPAP 02/17/19 00:01 115 155/88 02/17/19 00:00 5.0 02/17/19 00:00 98 46 155/88 (110) 98 BiPAP/CPAP 02/16/19 23:05 98 BiPAP/CPAP 02/16/19 20:00 96 33 144/92 (109) 97 BiPAP/CPAP 02/16/19 20:00 5.0 02/16/19 20:00 Nasal Cannula 02/16/19 19:56 98 BiPAP/CPAP 02/16/19 19:56 98 BiPAP/CPAP 02/16/19 16:43 106 152/82 02/16/19 16:04 96 BiPAP/CPAP 02/16/19 16:00 99.1 106 28 145/82 (103) 95 BiPAP/CPAP 99.1 02/16/19 16:00 5.0 02/16/19 15:39 95 Nasal Cannula 5.0 02/16/19 15:05 112 186/100 02/16/19 13:18 112 186/100 02/16/19 12:19 95 Nasal Cannula 5.0 02/16/19 12:11 106 186/100 02/16/19 12:00 5.0 02/16/19 12:00 Nasal Cannula 02/16/19 12:00 106 27 167/99 (121) 91 Nasal Cannula 6.0 02/16/19 11:12 106 186/100 02/16/19 11:00 114 27 179/141 (154) 92 Nasal Cannula 6.0 02/16/19 10:00 102 27 151/100 (117) 96 BiPAP/CPAP 02/16/19 09:00 98 27 154/94 (114) 96 BiPAP/CPAP 02/16/19 08:15 96 BiPAP/CPAP 02/16/19 08:00 123 27 184/98 (126) 96 BiPAP/CPAP 02/16/19 08:00 Bi-pap 02/16/19 08:00 5.0 02/16/19 07:56 123 165/98 02/16/19 07:00 99.1 122 27 174/96 (122) 96 BiPAP/CPAP 99.1 Laboratory Laboratory Laboratory Tests Test 02/17/19 04:15 02/17/19 07:30 White Blood Count 11.7 x10^3/uL (4.0-11.0) Red Blood Count 3.00 x10^6/uL (4.30-5.70) Hemoglobin 9.1 g/dL (13.0-17.5) Hematocrit 28.4 % (39.0-53.0) Mean Corpuscular Volume 95 fL (79-100) Mean Corpuscular Hemoglobin 31 pg (25-35) Mean Corpuscular Hemoglobin Concent 32 g/dL (31-37) Red Cell Distribution Width 14.7 % (11.5-14.5) Platelet Count 493 x10^3/uL (140-400) Neutrophils (%) (Auto) 82 % (31-73) Lymphocytes (%) (Auto) 7 % (24-48) Monocytes (%) (Auto) 9 % (0-9) Eosinophils (%) (Auto) 2 % (0-3) Basophils (%) (Auto) 1 % (0-3) Neutrophils # (Auto) 9.6 x10^3uL (1.8-7.7) Lymphocytes # (Auto) 0.8 x10^3/uL (1.0-4.8) Monocytes # (Auto) 1.0 x10^3/uL (0.0-1.1) Eosinophils # (Auto) 0.2 x10^3/uL (0.0-0.7) Basophils # (Auto) 0.1 x10^3/uL (0.0-0.2) Sodium Level 149 mmol/L (136-145) Potassium Level 3.3 mmol/L (3.5-5.1) Chloride Level 108 mmol/L (98-107) Carbon Dioxide Level 36 mmol/L (21-32) Anion Gap 5 (6-14) Blood Urea Nitrogen 15 mg/dL (8-26) Creatinine 0.4 mg/dL (0.7-1.3) Estimated GFR (Cockcroft-Gault) 219.4 Glucose Level 139 mg/dL (70-99) Calcium Level 9.0 mg/dL (8.5-10.1) Phosphorus Level 3.1 mg/dL (2.6-4.7) Magnesium Level 2.0 mg/dL (1.8-2.4) O2 Saturation 89 % (92-99) Arterial Blood pH 7.29 (7.35-7.45) Arterial Blood pCO2 at Patient Temp 78 mmHg (35-46) Arterial Blood pO2 at Patient Temp 68 mmHg (65-108) Arterial Blood HCO3 37 mmol/L (21-28) Arterial Blood Base Excess 8 mmol/L (-3-3) Microbiology 02/12/19 Blood Culture - Final, Complete NO GROWTH AFTER 5 DAYS 02/09/19 - Final, Complete 02/14/19 Aerobic Culture - Final, Complete 02/14/19 Aerobic Culture Result 1 (TG) - Final, Complete 02/14/19 Gram Stain - Final, Complete 02/14/19 Gram Stain Result 1 (TG) - Final, Complete 02/14/19 Gram Stain Result 2 (TG) - Final, Complete Medication Medications Current Medications Furosemide (Lasix) 40 mg 1X ONCE IVP ; Start 02/17/19 at 12:00; Stop 02/17/19 at 12:01; Status DC Metoprolol Tartrate (Lopressor Vial) 5 mg Q4HRS IVP Last administered on at 11:45; Start 02/17/19 at 12:00 Potassium Chloride 70 meq/ Potassium Phosphate 13.6 mmol/Magnesium Sulfate 10 meq/ Calcium Gluconate 10 meq/ Multivitamins 10 ml/Chromium/ Copper/Manganese/ Seleni/Zn 1 ml/ Total Parenteral Nutrition/Amino Acids/Dextrose/ Fat Emulsion Intravenous 1,200 ml @ 50 mls/hr TPN CONT IV Last administered on 02/16/19at 22:00; Start 02/16/19 at 22:00; Stop 02/17/19 at 21:59 Potassium Chloride 85 meq/ Potassium Phosphate 18 mmol/ Magnesium Sulfate 10 meq /Calcium Gluconate 10 meq/ Multivitamins 10 ml/Chromium/ Copper/Manganese/ Seleni/Zn 1 ml/ Total Parenteral Nutrition/Amino Acids/Dextrose/ Fat Emulsion Intravenous 1,200 ml @ 50 mls/hr TPN CONT IV ; Start 02/17/19 at 22:00; Stop 02/18/19 at 21:59 Potassium Chloride/Water 50 ml @ 50 mls/hr Q1H IV Last administered on at 09:15; Start 02/17/19 at 08:00; Stop 02/17/19 at 09:59; Status DC Comment Review of Relevant I have reviewed the following items valerie (where applicable) has been applied. LIZANDRO ROSENBERG MD Feb 17, 2019 13:54
--- NOTE | 2019-02-17 15:34 | SNU/HH DC ---
DISCHARGE ORDERS DISCHARGE INFORMATION: DISCHARGE DATE: Feb 17, 2019 FINAL DIAGNOSIS acute respiratory failure, hypoxic and hypercapneic Status: Acute CONDITION ON DISCHARGE: Stable CODE STATUS: Code Status: Full LTAC: ADMIT TO LTAC: Yes POST DISCHARGE ORDERS: ACTIVITY ORDERS: Activity as tolerated BATHING ORDERS: Shower-keep dressing dry, No Tub Bath until see DIET AFTER DISCHARGE: Cardiac WOUND/INCISION CARE: Ice to area for comfort, Change dressing CHECKS AFTER DISCHARGE: CHECKS AFTER DISCHARGE: Check blood press - daily, Weigh Yourself Daily TREATMENT/EQUIPMENT ORDERS: ADAPTIVE EQUIPMENT NEEDED: Book Jogger, Walker RESPIRATORY EQUIPMENT NEEDED: CPAP Physical Therapy For: Evalulation/Treatment Occupational Therapy For: Evaluation/Treatment Speech Language Pathology For: Evaluation/Treatment DISCHARGE MEDICATIONS: Home Meds Active Scripts Ampicillin Sodium/Sulbactam Na (UNASYN 3 GM VIAL) 3 Gm Vial, 2 GM IV Q4HRS for infection for 45 Days, #162 EACH Prov:DELORES LYONS MD 01/05/19 Docusate Sodium (COLACE) 100 Mg Capsule, 100 MG PO BID for constipation for 30 Days, #60 CAP Prov:DELORES LYONS MD 12/09/18 Metoprolol Tartrate (METOPROLOL TARTRATE) 25 Mg Tablet, 25 MG PO BID, #60 TAB Prov:NAYAN POND MD 07/11/16 Reported Medications Zolpidem Tartrate (AMBIEN) 10 Mg Tablet, 10 MG PO PRN QHS PRN for INSOMNIA, TAB 0 Refills 02/07/19 Ibuprofen (IBUPROFEN) 600 Mg Tablet, 600 MG PO PRN Q6HRS PRN for INFLAMMATION, TAB 02/07/19 Bisacodyl (DULCOLAX) 5 Mg Tablet.dr, 10 MG PO PRN DAILY PRN for CONSTIPATION, TAB 0 Refills 02/07/19 Guaifenesin/Dextromethorphan (MUCINEX DM ER 600-30 MG TABLET) 1 Each Tab.er.12h , 1 TAB PO BID for COPD, #20 TAB 02/07/19 Fentanyl (FENTANYL 100mcg/hr) 1 Each Patch.td72, 1 PATCH TD Q48H for pain, PATCH 02/07/19 Gabapentin (GABAPENTIN) 600 Mg Tablet, 600 MG PO TID for NEUROGENIC PAIN, TAB 02/07/19 Oxycodone Hcl (OXYCODONE HCL) 5 Mg Capsule, 30 MG PO Q4HRS PRN for PAIN, TAB 0 Refills 02/07/19 Hydrochlorothiazide (HYDROCHLOROTHIAZIDE CAPSULE ) 12.5 Mg Capsule, 25 MG PO DAILY for DIURETIC, CAP 0 Refills 11/29/18 Albuterol Sulfate (PROAIR HFA INHALER) 8.5 Gm Hfa.aer.ad, 2 PUFF INH PRN Q6HRS PRN for SHORTNESS OF BREATH, INHALER 0 Refills 11/29/18 Albuterol Sulfate (ALBUTEROL SULFATE NEB SOLN) 2.5 Mg/3 Ml Vial.neb, 2.5 MG NEB PRN Q4-6HRS PRN for SHORTNESS OF BREATH, EACH 0 Refills 11/29/18 Ipratropium [place] (IPRATROPIUM BROMIDE) 0.2 Mg/1 Ml Solution, 0.2 MG IH PRN Q4 -6HRS PRN for SHORTNESS OF BREATH, MISC 11/29/18 Sertraline Hcl (ZOLOFT) 100 Mg Tablet, 1 TAB PO DAILY for anxiety, #30 TAB 5 Refills 11/04/18 Methocarbamol (ROBAXIN) 500 Mg Tablet, 750 MG PO Q8HRS PRN for MUSCLE SPASMS, TAB 11/04/18 Azelastine Hcl (AZELASTINE HCL) 6 Ml Drops, 1 DROP EACHEYE PRN DAILY PRN for DRY EYE, #6 ML 2 Refills 11/04/18 Lisinopril (LISINOPRIL) 10 Mg Tablet, 10 MG PO DAILY for FOR HYPERTENSION, #30 TAB 0 Refills 08/12/17 Furosemide (LASIX) 20 Mg Tablet, 20 MG PO DAILY, TAB 08/12/17 Tamsulosin Hcl (TAMSULOSIN HCL) 0.4 Mg Cap.er.24h, 0.4 MG PO DAILY, TAB 08/12/17 Montelukast Sodium (MONTELUKAST SODIUM TABLET) 10 Mg Tablet, 10 MG PO HS for FOR ASTHMA, #30 TAB 0 Refills 08/12/17 Omeprazole (OMEPRAZOLE) 20 Mg Capsule.dr, 20 MG PO DAILY, CAP 07/09/16 Topiramate (TOPIRAMATE) 50 Mg Tablet, 1 TAB PO BID, #60 TAB 1 Refill 07/09/16 Roflumilast (DALIRESP) 500 Mcg Tablet, 500 MCG PO DAILY 07/09/16 Roseann JAY MD Feb 17, 2019 15:34
--- NOTE | 2019-02-17 18:07 | PDOC3 ---
Discharge Summary [facility] Date of Admission: Feb 04, 2019 Discharge Date: Feb 17, 2019 Admitting Diagnosis respiratory failure, acute Final Diagnosis Problems Medical Problems: (1) Altered mental status Status: Acute (2) Elevated LFTs Status: Acute (3) Hyperkalemia Status: Acute CONSULTS Pulm, Cardiology, ID Procedures mechanical ventilation > 48 hrs, central line placement Brief Hospital Course Mr. Roche is a 58 old [sex] who presented with: s/p code blue - bag and mask, mechanical ventilation x 48 hrs, then off 48 hrs then reintubated 02/08, extubated 02/14/19 acute respiratory failure - improved, presumed aspiration - continue antibiotics NSTEMI per enzymes- cardiology followed, caused CHF and fluid overload treated with IV lasix acute encephalopathy - improving and nearly resolved, neurology followed, LP not done as determined to not be necessary likely aspiration pneumonitis - continue antibiotics shock liver - improved - monitor COPD - continue neb treatments recent spinal abscess s/p lumbar lami but sed rate had returned to normal 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 Boyd who did not feel MRI findings were significant to current case acute flare of lumbar back pain last week without injury requiring an increase in pain meds for control - MRI L-spine did not show acute cause - pain now controlled obesity ADILENE - CPAP, Bipap prn hx of alcoholism - I am unaware of him drinking alcohol while at [facility] and admission alcohol level was undetectable anemia - stable AL - resolved, he was taking unprescribed NSAIDS, osteoBiflex gummies from home at [facility] for pain Afib/RVR - rate generally controlled with meds constipation per KUB imaging - bowels moving fever - cultures repeated and all negative, bronch done and negative, PICC replaced with central line edema - continue lasix diuresis hypokalemia - replace as needed right upper extremity complex fluid collection leukocytosis - monitor, cultures negative, continue antibiotics Patient History: Acute myocardial infarction G8 BROTHER FH: stomach cancer 33 FATHER Family history: Cardiomyopathy (situation) G8 BROTHER Family history: Cardiovascular disease (situation) Family history: Diabetes mellitus (situation) 32 MOTHER Family history: Hypertension (situation) G8 BROTHER Disposition LTAC Diet TPN until passes swallowing test Scheduled Ampicillin Sodium/Sulbactam Na (Unasyn 3 Gm Vial), 2 GM IV Q4HRS Docusate Sodium (Colace), 100 MG PO BID Fentanyl (FENTANYL 100mcg/hr), 1 PATCH TD Q48H, (Reported) Furosemide (Lasix), 20 MG PO DAILY, (Reported) Gabapentin (Gabapentin), 600 MG PO TID, (Reported) Guaifenesin/Dextromethorphan (Mucinex Dm Er 600-30 Mg Tablet), 1 TAB PO BID, ( Reported) Hydrochlorothiazide (Hydrochlorothiazide Capsule ), 25 MG PO DAILY, (Reported ) Lisinopril (Lisinopril), 10 MG PO DAILY, (Reported) Metoprolol Tartrate (Metoprolol Tartrate), 25 MG PO BID Montelukast Sodium (Montelukast Sodium Tablet), 10 MG PO HS, (Reported) Omeprazole (Omeprazole), 20 MG PO DAILY, (Reported) Roflumilast (Daliresp), 500 MCG PO DAILY, (Reported) Sertraline Hcl (Zoloft), 1 TAB PO DAILY, (Reported) Tamsulosin Hcl (Tamsulosin Hcl), 0.4 MG PO DAILY, (Reported) Topiramate (Topiramate), 1 TAB PO BID, (Reported) Scheduled PRN Albuterol Sulfate (Albuterol Sulfate Neb Soln), 2.5 MG NEB PRN Q4-6HRS PRN for SHORTNESS OF BREATH, (Reported) Albuterol Sulfate (Proair Hfa Inhaler), 2 PUFF INH PRN Q6HRS PRN for SHORTNESS OF BREATH, (Reported) Azelastine Hcl (Azelastine Hcl), 1 DROP EACHEYE PRN DAILY PRN for DRY EYE, ( Reported) Bisacodyl (Dulcolax), 10 MG PO PRN DAILY PRN for CONSTIPATION, (Reported) Ibuprofen (Ibuprofen), 600 MG PO PRN Q6HRS PRN for INFLAMMATION, (Reported) Ipratropium [place] (Ipratropium [place]), 0.2 MG IH PRN Q4-6HRS PRN for SHORTNESS OF BREATH, (Reported) Methocarbamol (Robaxin), 750 MG PO Q8HRS PRN for MUSCLE SPASMS, (Reported) Oxycodone Hcl (Oxycodone Hcl), 30 MG PO Q4HRS PRN for PAIN, (Reported) Zolpidem Tartrate (Ambien), 10 MG PO PRN QHS PRN for INSOMNIA, (Reported) Follow Up 1-2 weeks after discharge Roseann JAY MD Feb 17, 2019 18:07
[2019-02-17] MEDS ORDERED: TOTAL PARENTERAL NUTRITION IV SCH ×9 (22:00)
[2019-02-17] MEDS ORDERED: [UNRECOGNIZED DRUG - OTHER] IV SCH ×9 (22:00)
[2019-02-17] MEDS ORDERED: DEXTROSE 70% IV SCH ×9 (22:00)
[2019-02-17] MEDS ORDERED: AMINO ACID IV SCH ×9 (22:00)
[2019-02-23] MEDS ORDERED: [UNRECOGNIZED DRUG - CODE] IV (13:51)
[2019-02-23] MEDS ORDERED: ASPI325T8 PO (13:51)
[2019-02-23] MEDS ORDERED: CEFE2VIA2 IV (13:51)
[2019-02-23] MEDS ORDERED: [UNRECOGNIZED DRUG - CODE] IJ (13:51)
[2019-02-23] MEDS ORDERED: DIGO125T NG (13:51)
[2019-02-23] MEDS ORDERED: DIGO250T PO (13:51)
[2019-02-23] MEDS ORDERED: MVI,5VIA2 IV (13:51)
[2019-02-23] MEDS ORDERED: DEXT15DR5 EACHEYE (13:51)
== END 2019-02-17 17:08 | DRG 870 ==
LOC: ER 14:51 → 1 WEST ICU 16:00
PROVIDERS: ADMIT Family Medicine; ATTEND Family Medicine
PROC: 5A1945Z Respiratory Ventilation, 24-96 Consecutive Hours (ICD-10-PCS; 2019-02-04)
PROC: 5A09357 Assistance with Respiratory Ventilation, Less than 24 Consecutive Hours, Continuous Positive Airway Pressure (ICD-10-PCS; 2019-02-06)
PROC: 5A09357 Assistance with Respiratory Ventilation, Less than 24 Consecutive Hours, Continuous Positive Airway Pressure (ICD-10-PCS; 2019-02-07)
PROC: 5A1935Z Respiratory Ventilation, Less than 24 Consecutive Hours (ICD-10-PCS; 2019-02-07)
PROC: 5A1955Z Respiratory Ventilation, Greater than 96 Consecutive Hours (ICD-10-PCS; principal; 2019-02-08)
PROC: 0BH17EZ Insertion of Endotracheal Airway into Trachea, Via Natural or Artificial Opening (ICD-10-PCS; 2019-02-08)
PROC: 5A09357 Assistance with Respiratory Ventilation, Less than 24 Consecutive Hours, Continuous Positive Airway Pressure (ICD-10-PCS; 2019-02-08)
PROC: 0B9J8ZX Drainage of Left Lower Lung Lobe, Via Natural or Artificial Opening Endoscopic, Diagnostic (ICD-10-PCS; 2019-02-09)
PROC: 0B9D8ZX Drainage of Right Middle Lung Lobe, Via Natural or Artificial Opening Endoscopic, Diagnostic (ICD-10-PCS; 2019-02-09)
PROC: 0B9F8ZX Drainage of Right Lower Lung Lobe, Via Natural or Artificial Opening Endoscopic, Diagnostic (ICD-10-PCS; 2019-02-09)
PROC: 02HV33Z Insertion of Infusion Device into Superior Vena Cava, Percutaneous Approach (ICD-10-PCS; 2019-02-14)
PROC: B548ZZA Ultrasonography of Superior Vena Cava, Guidance (ICD-10-PCS; 2019-02-14)
PROC: B5181ZA Fluoroscopy of Superior Vena Cava using Low Osmolar Contrast, Guidance (ICD-10-PCS; 2019-02-14)
PROC: 5A09357 Assistance with Respiratory Ventilation, Less than 24 Consecutive Hours, Continuous Positive Airway Pressure (ICD-10-PCS; 2019-02-14)
PROC: 5A09357 Assistance with Respiratory Ventilation, Less than 24 Consecutive Hours, Continuous Positive Airway Pressure (ICD-10-PCS; 2019-02-15)
PROC: 5A1935Z Respiratory Ventilation, Less than 24 Consecutive Hours (ICD-10-PCS; 2019-02-16)
DX: A41.9 Sepsis, unspecified organism (principal); I50.33 Acute on chronic diastolic (congestive) heart failure; J96.01 Acute respiratory failure with hypoxia; G93.41 Metabolic encephalopathy; I21.4 Non-ST elevation (NSTEMI) myocardial infarction; K72.00 Acute and subacute hepatic failure without coma; J69.0 Pneumonitis due to inhalation of food and vomit; G93.1 Anoxic brain damage, not elsewhere classified; I48.1 Persistent atrial fibrillation; J98.11 Atelectasis; M86.9 Osteomyelitis, unspecified; N17.9 Acute kidney failure, unspecified; J44.0 Chronic obstructive pulmonary disease with (acute) lower respiratory infection; D64.9 Anemia, unspecified; E66.01 Morbid (severe) obesity due to excess calories; E87.5 Hyperkalemia; E87.6 Hypokalemia; G47.33 Obstructive sleep apnea (adult) (pediatric); I11.0 Hypertensive heart disease with heart failure; I48.2 Chronic atrial fibrillation; K21.9 Gastro-esophageal reflux disease without esophagitis; K59.00 Constipation, unspecified; M51.36 Other intervertebral disc degeneration, lumbar region; N40.0 Benign prostatic hyperplasia without lower urinary tract symptoms; R13.10 Dysphagia, unspecified; Z79.899 Other long term (current) drug therapy; Z80.0 Family history of malignant neoplasm of digestive organs; Z82.49 Family history of ischemic heart disease and other diseases of the circulatory system; Z83.3 Family history of diabetes mellitus; Z85.038 Personal history of other malignant neoplasm of large intestine; Z85.819 Personal history of malignant neoplasm of unspecified site of lip, oral cavity, and pharynx; G25.3 Myoclonus; Z87.891 Personal history of nicotine dependence; F32.9 Major depressive disorder, single episode, unspecified; F41.9 Anxiety disorder, unspecified; G89.29 Other chronic pain; M19.90 Unspecified osteoarthritis, unspecified site; Z86.61 Personal history of infections of the central nervous system; I95.9 Hypotension, unspecified
CPT/HCPCS: 31500; 31622; 36415; 36556; 36600; 70450; 70551; 71045; 72158; 74018; 76881; 76937; 80048; 80053; 80202; 81001; 82550; 82565; 82805; 82962; 83605; 83690; 83735; 83880; 84100; 84145; 84478; 84484; 85007; 85025; 85027; 85520; 85610; 85651; 87040; 87070; 87205; 87641; 88112; 93005; 93308; 93971; 94002; 94003; 94640; 94660; 94760; 96361; 96365; 96366; 96374; 96375; A9585; C1892; G0480; J0133; J0360; J0610; J0692; J1160; J1630; J1644; J1650; J1940; J1953; J2060; J2250; J2270; J2310; J2543; J2704; J3010; J3370; J3475; J3480; J3490; J7030; J7040; J7613; J7620; J7626; 92526; 92610; 97530; 97535; 99285-25

== ENCOUNTER → 2019-04-29 | Outpatient (CLI) | payer MEDICARE ==
[2019-02-23 15:14] VITALS: BP 124/91
[~2019-04-29] MED LIST changes: +BISA-42 PO; +CEFE2VIA2 IV; +DEXT15DR5 EACHEYE; +DIGO125T NG; +DIGO250T PO; +FENT1PAT21 TD; +GABA600T7 PO; +GUAI-108 PO; +IBUP-1007 PO; +MVI,5VIA2 IV; +OXYC5CAP PO; +ZOLP10TA PO; +[UNRECOGNIZED DRUG - CODE] IJ; +[UNRECOGNIZED DRUG - CODE] IV
--- NOTE | 2019-04-29 16:35 | RAD ---
CHEST PA LATERAL History: Shortness of breath. Temporary defibrillator placed one week ago. COMPARISON: February 17, 2019. Comparison: February 17, 2019. FINDINGS: hide stretcher hand overlies the left hemithorax. Heart size size is stable. No evidence of pneumothorax. Small right pleural effusion, likely improved from prior exam. There may be a trace left effusion also improved. Diffuse interstitial opacities in both lungs, overall similar accounting for the difference in technique. There is a slight improved aeration of the lung bases however since that exam but a component of acute edema or interstitial infiltrate is still suspected. IMPRESSION: 1. Bilateral interstitial opacities, greater in the lung bases, compatible with edema or infectious etiology, although there is also likely a background of fibrosis. 2. Small pleural effusions. Electronically signed by: Hussain Emanuel MD (04/29/2019 4:32 PM) [id number]
== END | disposition home or self-care (01) ==
LOC: RAD 09:07
PROVIDERS: ATTEND Internal Medicine Pulmonary Disease
DX: J90 Pleural effusion, not elsewhere classified (principal); J81.1 Chronic pulmonary edema
CPT/HCPCS: 71046

== ENCOUNTER → 2019-05-06 | Outpatient (CLI) | payer MEDICARE ==
[2019-02-23 15:14] VITALS: BP 124/91
[~2019-05-06] MED LIST changes: +GADOTERATE 7.5 MMOL/15ML VIAL. IVP ONE; +MONT10TA49 PO; -MONT10TA9 PO
--- NOTE | 2019-05-06 10:01 | KCIC ---
MRI of the lumbar spine without and with contrast 05/06/2019 CLINICAL HISTORY: Low back pain. History of discitis/osteomyelitis. TECHNIQUE: Unenhanced T1-weighted, T2-weighted and inversion recovery sagittal and T1-weighted and T2-weighted axial images of the lumbar spine were obtained. After the intravenous administration of 25 cc of Dotarem, enhanced T1-weighted sagittal and axial images of the lumbar spine were obtained. FINDINGS: Comparison study is dated 02/08/2019. Mild S-shaped curvature of the thoracolumbar spine is seen. Degenerative signal changes and loss of height are seen involving the L1-2 through L4-5 discs. Degenerative signal changes are seen within the marrow surrounding these discs. A compression fracture of the superior aspect of T12 vertebral body is again seen. No retropulsion of bone fragments into the central spinal canal seen. The conus medullaris is normal in morphology, position, and signal characteristics. The increased signal intensity on the T2-weighted and inversion recovery images involving the L4-5 disc has largely resolved. The signal abnormality within the surrounding marrow has largely resolved. These findings are consistent with improving discitis/osteomyelitis. The epidural phlegmon seen on the previous examination within the anterior epidural space has resolved. No new area of discitis/osteomyelitis is seen. At the T12-L1 disc space there is a mild generalized disc bulge. Superimposed on this disc bulge is a central/right paracentral focal disc protrusion. This measures 3 mm in AP diameter. Degenerative changes are seen involving the facet joints bilaterally. These findings when combined result in mild right greater than left central spinal canal stenosis. No neural foraminal stenosis is seen. At the L1-2 disc space there is a mild generalized disc bulge. Degenerative changes are seen involving the facet joints bilaterally. There is mild ligamentum flavum hypertrophy bilaterally. There is prominence of the posterior epidural fat. These findings result in mild central spinal canal stenosis. No neural foraminal stenosis is seen. At the L2-3 disc space there is a mild generalized disc bulge. Degenerative changes are seen involving the facet joints bilaterally. There is mild ligamentum flavum hypertrophy bilaterally. There are small facet joint effusions bilaterally. There is prominence of the posterior epidural fat. These findings when combined result in mild central spinal canal stenosis. No neural foraminal stenosis is seen. At the L3-4 disc space there is a mild to moderate generalized disc bulge. This is eccentric to the left. Degenerative changes are seen involving the facet joints bilaterally. There is mild to moderate ligamentum flavum hypertrophy bilaterally. There is prominence of the posterior epidural fat. These findings when combined result in moderate to severe central spinal canal stenosis. Mild to moderate right greater than left neural foraminal stenosis is seen. These findings have progressed since the previous study. At the L4-5 disc space the patient is post left hemilaminectomy at L4-5. There is a mild generalized disc bulge which is eccentric to the left. Degenerative changes are seen involving the facet joints bilaterally. There are small facet joint effusions. Mild right ligamentum flavum hypertrophy is noted. These findings do not result in significant central spinal canal stenosis. Moderate left neural foraminal stenosis is seen. The right neural foramen is patent. At the L5-S1 disc space there is a mild generalized disc bulge. Degenerative changes are seen involving the facet joints, left greater than right. These findings do not result in significant central spinal canal or neural foraminal stenosis. IMPRESSION: 1. The discitis/osteomyelitis at L4-5 has improved as discussed above. The epidural phlegmon seen on the previous examination has resolved. No new area of discitis/osteomyelitis is seen. 2. Post left hemilaminectomy at L4-5. 3. The changes of degenerative disc disease are seen involving the lower thoracic and throughout the lumbar spine. These findings result in mild right greater than left central spinal canal stenosis at T12-L1, mild central spinal canal stenosis at L1-2 and L2-3 and moderate to severe central spinal canal stenosis at L3-4. The cental spinal canal stenosis at L3-4 has increased since the previous examination. Mild to moderate right greater than left neural foraminal stenosis is seen at L3-4. Moderate left neural foraminal stenosis is seen at L4-5. Electronically signed by: Nba Dye MD (05/06/2019 9:59 AM) [id number]
== END | disposition home or self-care (01) ==
LOC: KCIC MRI 08:10
PROVIDERS: ATTEND Neurological Surgery
DX: M48.54XA Collapsed vertebra, not elsewhere classified, thoracic region, initial encounter for fracture (principal); M51.24 Other intervertebral disc displacement, thoracic region; M47.815 Spondylosis without myelopathy or radiculopathy, thoracolumbar region; M51.35 Other intervertebral disc degeneration, thoracolumbar region; M48.05 Spinal stenosis, thoracolumbar region; M89.38 Hypertrophy of bone, other site; M25.48 Effusion, other site
CPT/HCPCS: 72158; A9575

== ENCOUNTER → 2019-06-15 | Outpatient (CLI) | payer MEDICARE ==
[2019-02-23 15:14] VITALS: BP 124/91
[~2019-06-15] MED LIST changes: +ALBU0.63 NEB; +APIX5TAB PO; -DIGO125T NG; +DIGO125T PO; +FAMO-63 PO; +FLUT1BLS8 IH; +FURO40TA4 PO; -GADOTERATE 7.5 MMOL/15ML VIAL. IVP ONE; +HYDR-2868 PO; +ISOS30TA4 PO; +LEVE500T6 PO; +LORA10TA3 PO; +MIRT15TA3 PO; +OMEP20TA8 PO; -PANT40TA5 PO; +PANT40TA77 PO; +TAMS0.4C97 PO
--- NOTE | 2019-06-16 12:55 | SLEEP ---
DATE OF STUDY: 06/15/2019 SLEEP STUDY [facility] CARE PHYSICIAN: Dr. Nguyen REFERRING PHYSICIAN: Dr. Kaur. HISTORY: The patient is 59 years old who weighs 280 pounds with a BMI of 38. The patient's Dry Prong score was 4. The patient has been on CPAP at 19 cm water with 3 L of oxygen. I do not have any diagnostic studies to assess for severity of sleep apnea. The patient had a nocturnal oximetry study performed as an outpatient while on the current CPAP and oxygen settings and was noted to have hypoxia. As a result, he was referred back for another titration study. The study was performed while the patient slept on 19 cm water and his home 3 liters of oxygen. During the night study, the patient spent 417 minutes in bed and slept for 359 minutes with a sleep efficiency of 86%. Sleep latency was 41 minutes with absent REM sleep. Overall, sleep architecture showed increased stage 1 and stage 2 sleep, normal slow wave and absent REM sleep. EKG monitoring revealed an average heart rate of 88%. No sustained arrhythmias observed. PLMs were seen at index of 22 per hour and 2 per hour caused EEG arousals. The patient's AHI while sleeping at 19 cm water and 3 liters of oxygen, throughout the night was only 2 per hour with a supine AHI of 3 per hour. REM sleep was not observed. The patient's oximetry study at the final pressure revealed that majority of the time, it stayed above 88%. His lowest saturation was 87%. The pattern suggesting hypoventilation. Of note, the patient also has [id number] COPD. IMPRESSION / RECOMMENDATIONS: 1. CPAP at 19 cm water with 3 L of supplemental oxygen corrects patient's sleep apnea as well as nocturnal hypoxia. The pattern of nocturnal hypoxia is suggesting hypoventilation. The patient has known history of chronic obstructive airway disease. 2. [id number] periodic limb movements, does not need to be treated unless the patient has symptoms of restless legs during the day. 3. Weight loss is strongly advised. 4. Avoid SEAM TAPER MACHINE depressants. 5. Caution regarding driving until symptoms of sleep apnea resolve with the above CPAP. FOREIGN GOODE MD DR: LANDON/philip JOB#: [id number] / [id number] RD Colon MD MTDD
== END | disposition home or self-care (01) ==
LOC: RT 18:52
PROVIDERS: ATTEND Internal Medicine Pulmonary Disease
DX: G47.33 Obstructive sleep apnea (adult) (pediatric) (principal); G47.34 Idiopathic sleep related nonobstructive alveolar hypoventilation; G47.61 Periodic limb movement disorder
CPT/HCPCS: 95811

== ENCOUNTER → 2019-08-29 | Outpatient (CLI) | payer MEDICARE ==
[2019-07-22 11:00] VITALS: BP 123/75
[~2019-08-29] MED LIST changes: +AMOX1TAB61 PO; -CLON1TAB11 PO; +CLONAZEPAM1 MG PO; +DOCU100C28 PO; +HYDR-2761 PO; +LACT1CAP19 PO; +LORA0.5T PO; +POLY17PO28 PO; +PRED-220 PO; +TIOT18CA IH
--- NOTE | 2019-08-29 19:49 | PAIN ---
DATE OF SERVICE: 08/29/2019 PROGRESS NOTE FOR PAIN CLINIC DIAGNOSES: Lumbar radiculopathy with lumbar spinal stenosis, lumbar degenerative disk disease and post-lumbar laminectomy syndrome. HISTORY OF PRESENT ILLNESS: The patient, a 59-year-old male, returns for followup status post previous lumbar epidural steroid injection. The patient had a surgery for lumbar decompression at L4-L5 in November of this year with postoperative infection and reoperation with postop complications and heart attack with atrial fibrillation diagnosed. The patient was in extended recovery for several months following the incident at the assisted for rehab and was on ventilator with tracheostomy and multiple other complications. The patient doing better now. He has been discharged since March, but is on Eliquis for atrial fibrillation. The patient complains of pain in the low back, more on the right than the left, but present bilaterally. Worse with standing, walking. He is better with sitting or lying down. Generally, it does not awaken him from sleep at night. Reports that the pain is unbearable at times; sharp, aching, dull. He has seen his neurosurgeon, who is recommending some conservative therapies and has referred him for lumbar epidural steroid injections. We will check with the patient's drop wire builder to see if he is able to hold the Eliquis. The patient rates his pain as 7 on a scale of 10 at all times, average, worst and least throughout the last week and is a 7 today. The patient reports no motor or sensory deficits. No new bowel or bladder incontinence, but still significant pain in the low back and the bilateral lower extremities with walking. PHYSICAL EXAMINATION: VITAL SIGNS: The patient's blood pressure is 132/91, pulse 75, respirations 16, temperature is 97.3 degrees Fahrenheit, height is 6 feet, weight is 323 pounds. GENERAL: The patient is awake, alert, oriented, appropriate. He has very pleasant demeanor. HEENT: Shows normocephalic, atraumatic. Extraocular movements are intact and symmetrical. Oral cavity: Mucous membranes moist and pink. Dentition is intact. NECK: Shows anterior throat supple without palpable lymphadenopathy noted. Swallow reflex symmetrical. CHEST: Shows normal on inspection. Breath sounds are coarse and distant, but clear bilaterally. ABDOMEN: Obese, soft, nontender, nondistended. BACK: Shows spine grossly in the midline. Normal-appearing thoracic kyphosis and some flattening of lumbar lordotic curvature. There is a well-healed surgical scarring noted in the midline. Lumbar paraspinous muscle shows symmetrical on inspection. On palpation, shows some moderate tenderness diffusely bilaterally, but only diffusely without radiation. The patient has good rotational motion of lumbar spine, both laterally as well as extension and flexion without significant increase in pain. EXTREMITIES: Lower extremities show deep tendon reflexes 1+ in the patellar and tendo-calcaneus tendons. Motor exam is approximately 4 on a scale of 5, but equal and symmetrical with dorsiflexion, extension, quadriceps and hamstring flexion. Peripheral pulses are 1+. No peripheral edema is noted. The patient is wearing oxygen at 3 liters nasal cannula. PLAN: Options were discussed with the patient and the patient's old chart was reviewed as his current medication regimen updated. Current review of systems updated today as well. We will check with the patient's drop wire builder for safety for holding Eliquis for 3 days prior to potential lumbar epidural steroid injection. The patient will maintain the medication and we will wait to hear from his drop wire builder. If deemed safe and acceptable to hold this, we will have him hold it and return for a lumbar epidural steroid injection after 3 days. JACK AYALA MD DR: ABHIJIT/philip JOB#: [id number] / [id number]
== END | disposition home or self-care (01) ==
LOC: PNCL 10:22
PROVIDERS: ATTEND Anesthesiology
DX: M51.16 Intervertebral disc disorders with radiculopathy, lumbar region (principal); M48.061 Spinal stenosis, lumbar region without neurogenic claudication; M96.1 Postlaminectomy syndrome, not elsewhere classified; E66.9 Obesity, unspecified
CPT/HCPCS: G0463

== ENCOUNTER 2019-09-03 12:07 | Inpatient (IN) | payer MEDICARE ==
[~2019-09-03] VITALS: Ht 182.9 cm; Wt 145.1 kg
[~2019-09-03 12:07] MED LIST changes: -DOCU100C28 PO; -HYDR-2761 PO; -POLY17PO28 PO; -TIOT18CA IH
--- NOTE | 2019-09-03 12:37 | PHYS DOC ---
Past Medical History Past Medical History: Asthma, CHF, COPD, Hypertension Additional Past Medical Histor: emphysema, lower ext edema,CPAP at night, oxygen at night Past Surgical History: Cancer Surgery Additional Past Surgical Histo: R elbow (bursitis), hernia, colectomy, mouth Cancer- laser surgery Alcohol Use: None Drug Use: None Attending Signature I have participated in the care of this patient and I have reviewed and agree wi th all pertinent clinical information above including history, exam, and recommendations. Adult General Chief Complaint Chief Complaint: SHORTNESS OF BREATH HPI HPI 59-year-old male presents to the emergency department with complaints of shortness of breath, left chest wall pain. Patient has a history of chronic respiratory failure, 10 L nasal cannula. Patient states he fell out of bed on and has had left chest wall pain worsening over the last couple days. He states he's had difficulty taking a big breath and unable cough. He is concerned he may have injury with rib fracture versus pneumonia. Patient denies any nausea, vomiting, abdominal pain, headache or visual change. Review of Systems Review of Systems Constitutional: Denies fever or chills [] HENT: Denies nasal congestion or sore throat [] Respiratory: Denies cough, +shortness of breath [] Cardiovascular: No additional information not addressed in HPI [] GI: Denies abdominal pain, nausea, vomiting, bloody stools or diarrhea [] Musculoskeletal: Denies back pain or joint pain [] Integument: Denies rash or skin lesions [] Neurologic: Denies headache, focal weakness or sensory changes [] All other systems were reviewed and found to be within normal limits, except as documented in this note. Current Medications Current Medications Current Medications Medications (Trade) Dose Ordered Sig/Sheryl Start Time Stop Time Status Last Admin Dose Admin Acetaminophen (Tylenol) 650 mg PRN Q4HRS PRN 09/03/19 15:00 09/04/19 14:59 Info (CONTRAST GIVEN -- Rx MONITORING) 1 each PRN DAILY PRN 09/03/19 13:15 09/05/19 13:14 Iohexol (Omnipaque 300 Mg/ml) 75 ml 1X ONCE 09/03/19 13:30 09/03/19 13:31 DC 09/03/19 13:16 75 ML Morphine Sulfate (Morphine Sulfate) 2 mg PRN Q2HR PRN 09/03/19 15:00 09/04/19 14:59 09/03/19 22:46 2 MG Ondansetron HCl (Zofran) 4 mg PRN Q8HRS PRN 09/03/19 15:00 09/04/19 14:59 Oxycodone/ Acetaminophen (Percocet 5/325) 1 tab 1X ONCE 09/03/19 13:00 09/03/19 13:01 DC 09/03/19 12:56 1 TAB Allergies Allergies Allergies Coded Allergies Type Severity Reaction Last Updated Verified No Known Drug Allergies 02/23/19 No Physical Exam Physical Exam Constitutional: Well developed, well nourished, no acute distress, non-toxic appearance. [] HENT: Normocephalic, atraumatic, bilateral external ears normal, oropharynx moist, no oral exudates, nose normal. [] Eyes: PERRLA, EOMI, conjunctiva normal, no discharge. [] Cardiovascular:Heart rate regular rhythm, no murmur [] Lungs & Thorax: Decreased breath sounds appreciated bilaterally, no wheezes appreciated, left chest wall pain, no bruising Abdomen: Bowel sounds normal, soft, no tenderness, no masses, no pulsatile masses. [] Skin: Warm, dry, no erythema, no rash. [] Extremities: No tenderness, no cyanosis, no clubbing, ROM intact, no edema. [] Neurologic: Alert and oriented X 3, no focal deficits noted. [] Psychologic: Affect normal, judgement normal, mood normal. [] Current Patient Data Vital Signs Vital Signs Date Time Temp Pulse Resp B/P (MAP) Pulse Ox O2 Delivery O2 Flow Rate FiO2 09/03/19 15:18 Nasal Cannula 10.0 09/03/19 14:30 76 24 150/81 (104) 96 09/03/19 12:10 97.7 97.7 Lab Values Laboratory Tests Test 09/03/19 12:32 White Blood Count 8.6 x10^3/uL (4.0-11.0) Red Blood Count 4.25 x10^6/uL (4.30-5.70) L Hemoglobin 13.1 g/dL (13.0-17.5) Hematocrit 39.1 % (39.0-53.0) Mean Corpuscular Volume 92 fL (79-100) Mean Corpuscular Hemoglobin 31 pg (25-35) Mean Corpuscular Hemoglobin Concent 33 g/dL (31-37) Red Cell Distribution Width 16.5 % (11.5-14.5) H Platelet Count 243 x10^3/uL (140-400) Neutrophils (%) (Auto) 76 % (31-73) H Lymphocytes (%) (Auto) 9 % (24-48) L Monocytes (%) (Auto) 10 % (0-9) H Eosinophils (%) (Auto) 5 % (0-3) H Basophils (%) (Auto) 1 % (0-3) Neutrophils # (Auto) 6.5 x10^3/uL (1.8-7.7) Lymphocytes # (Auto) 0.8 x10^3/uL (1.0-4.8) L Monocytes # (Auto) 0.8 x10^3/uL (0.0-1.1) Eosinophils # (Auto) 0.4 x10^3/uL (0.0-0.7) Basophils # (Auto) 0.0 x10^3/uL (0.0-0.2) Sodium Level 139 mmol/L (136-145) Potassium Level 4.4 mmol/L (3.5-5.1) Chloride Level 98 mmol/L (98-107) Carbon Dioxide Level 31 mmol/L (21-32) Anion Gap 10 (6-14) Blood Urea Nitrogen 9 mg/dL (8-26) Creatinine 0.8 mg/dL (0.7-1.3) Estimated GFR (Cockcroft-Gault) 98.3 BUN/Creatinine Ratio 11 (6-20) Glucose Level 98 mg/dL (70-99) Calcium Level 9.2 mg/dL (8.5-10.1) Total Bilirubin 0.8 mg/dL (0.2-1.0) Aspartate Amino Transferase (AST) 11 U/L (15-37) L Alanine Aminotransferase (ALT) 12 U/L (16-63) L Alkaline Phosphatase 86 U/L (46-116) Total Protein 7.5 g/dL (6.4-8.2) Albumin 3.8 g/dL (3.4-5.0) Albumin/Globulin Ratio 1.0 (1.0-1.7) Laboratory Tests 09/03/19 12:32 Laboratory Tests 09/03/19 12:32 EKG EKG EKG reviewed, junctional rhythm, heart rate 71 no acute elevation appreciated[] Interpretation Time: Interpretation time 1216 Radiology/Procedures Radiology/Procedures [facility] [address] [place] [address] IMAGING REPORT Signed PATIENT: TITO MEHTA ACCOUNT: [id number] : 1960 LOCATION: ER AGE: 59 SEX: M EXAM STATUS: REG ER ORD. PHYSICIAN: VICKIE CROWELL MD REASON: Fall, on eliquis left chest wall pain PROCEDURE: CT CHEST W/CONTRAST CT CHEST W/CONTRAST Indication: Fall, left chest wall pain, on blood thinner Technique: Postcontrast CT imaging was performed of the chest, multiplanar reconstruction images submitted. One or more of the following individualized dose reduction techniques were utilized for this examination: 1. Automated exposure control 2. Adjustment of the mA and/or kV according to patient size 3. Use of iterative reconstruction technique. Comparison: June 20, 2019 Findings: There is no pneumothorax. There is again small right pleural effusion. There is now mild consolidation and air bronchograms right middle lobe also mild small right lower lobe atelectasis and also mild the increased right upper lobe atelectasis. Heart is enlarged. Minimal density in the tracheal. More likely a component of mucus. There is some coronary calcification. Thoracic aortic caliber is within normal limits without intraluminal flap. There is old bony deformity of the left posterior fourth and fifth ribs, left lateral sixth rib, left posterior eighth and ninth ribs. There is acute nondisplaced left lateral seventh rib fracture. There is similar degree of T12 compression deformity. IMPRESSION: 1. There is acute nondisplaced left lateral seventh rib fracture, other old left rib fractures as seen previously. There is no pneumothorax or left pleural fluid. 2. There is again small right pleural effusion. There is now mild consolidation of the right middle lobe, also right upper and right lower lobe atelectasis. 3. There is some coronary calcification. Heart is enlarged. Electronically signed by: Jojo Rene MD (09/03/2019 1:48 PM) [facility] DICTATED and SIGNED BY: JOJO RENE MD DATE: 09/03/19 1348 [] Course & Med Decision Making Course & Med Decision Making Pertinent Labs and Imaging studies reviewed. (See chart for details) []59-year-old male presents to the emergency department with complaints of shortness of breath, left chest wall pain. Patient has a history of chronic respiratory failure, 10 L nasal cannula. Patient states he fell out of bed on and has had left chest wall pain worsening over the last couple days. He states he's had difficulty taking a big breath and unable cough. He is concerned he may have injury with rib fracture versus pneumonia. Patient denies any nausea, vomiting, abdominal pain, headache or visual change. Dragon Disclaimer Dragon Disclaimer This electronic medical record was generated, in whole or in part, using a voice recognition dictation system. Departure Departure Referrals: Roseann JAY MD (PCP) VICKIE CROWELL MD Sep 03, 2019 12:37
[2019-09-03 12:46] LABS: BASO % 1 % (0-3); EOS # 0.4 x10^3/uL (0.0-0.7); EOS % 5 % (0-3); HEMATOCRIT 39.1 % (39.0-53.0); HEMOGLOBIN 13.1 g/dL (13.0-17.5); LYMPH # 0.8 x10^3/uL (1.0-4.8); LYMPH % 9 % (24-48); MEAN CORPUSCULAR HEMOGLOBIN 31 pg (25-35); MEAN CORPUSCULAR HGB CONC 33 g/dL (31-37); MEAN CORPUSCULAR VOLUME 92 fL (79-100); MONO # 0.8 x10^3/uL (0.0-1.1); MONO % 10 % (0-9); NEUT # 6.5 x10^3/uL (1.8-7.7); NEUT % 76 % (31-73); PLATELET COUNT 243 x10^3/uL (140-400); RED BLOOD COUNT 4.25 x10^6/uL (4.30-5.70); RED CELL DISTRIBUTION WIDTH 16.5 % (11.5-14.5); WHITE BLOOD COUNT 8.6 x10^3/uL (4.0-11.0)
[2019-09-03 12:53] LABS: CALCIUM 9.2 mg/dL (8.5-10.1); CREATININE 0.8 mg/dL (0.7-1.3); GFR 98.3; POTASSIUM 4.4 mmol/L (3.5-5.1)
[2019-09-03 12:59] LABS: ALBUMIN 3.8 g/dL (3.4-5.0); TOTAL BILIRUBIN 0.8 mg/dL (0.2-1.0); TOTAL PROTEIN 7.5 g/dL (6.4-8.2)
[2019-09-03] MEDS ORDERED: oxyCODONE/APAP 5/325 1 TAB TABLET PO ONE (13:00)
[2019-09-03] MEDS ORDERED: CONTRAST GIVEN. MC PRN (13:15)
[2019-09-03] MEDS ORDERED: IOHEXOL 300 MG/ML 100ML VIAL. IV ONE (13:30)
--- NOTE | 2019-09-03 13:51 | RAD ---
CT CHEST W/CONTRAST Indication: Fall, left chest wall pain, on blood thinner Technique: Postcontrast CT imaging was performed of the chest, multiplanar reconstruction images submitted. One or more of the following individualized dose reduction techniques were utilized for this examination: 1. Automated exposure control 2. Adjustment of the mA and/or kV according to patient size 3. Use of iterative reconstruction technique. Comparison: June 20, 2019 Findings: There is no pneumothorax. There is again small right pleural effusion. There is now mild consolidation and air bronchograms right middle lobe also mild small right lower lobe atelectasis and also mild the increased right upper lobe atelectasis. Heart is enlarged. Minimal density in the tracheal. More likely a component of mucus. There is some coronary calcification. Thoracic aortic caliber is within normal limits without intraluminal flap. There is old bony deformity of the left posterior fourth and fifth ribs, left lateral sixth rib, left posterior eighth and ninth ribs. There is acute nondisplaced left lateral seventh rib fracture. There is similar degree of T12 compression deformity. IMPRESSION: 1. There is acute nondisplaced left lateral seventh rib fracture, other old left rib fractures as seen previously. There is no pneumothorax or left pleural fluid. 2. There is again small right pleural effusion. There is now mild consolidation of the right middle lobe, also right upper and right lower lobe atelectasis. 3. There is some coronary calcification. Heart is enlarged. Electronically signed by: Krishna Orourke MD (09/03/2019 1:48 PM) [facility]
[2019-09-03] MEDS ORDERED: ONDANSETRON PF 4 MG/2 ML VIAL. IVP ONE (14:15)
[2019-09-03] MEDS ORDERED: MORPHINE SULFATE 4 MG/ML VIAL. IV ONE (14:15)
[2019-09-03] MEDS ORDERED: ACETAMINOPHEN 325 MG TABLET. PO PRN (15:00)
[2019-09-03] MEDS ORDERED: ONDANSETRON PF 4 MG/2 ML VIAL. IV PRN (15:00)
[2019-09-03] MEDS: IPRATRPIUM/ALBUTEROL 0.5/2.5MG 3 ML NEBU. NEB SCH ×3 (15:16→19:25)
[2019-09-03 16:00] VITALS: BP 122/87
[2019-09-03] MEDS ORDERED: PIPERACILLIN/TAZOBACTAM 4.5 GM in IV NORMAL SALINE 100ML 100 ML IV ONE (16:00)
[2019-09-03] MEDS ORDERED: TIOT18CA IH (16:27)
[2019-09-03] MEDS: MORPHINE SULFATE 2 MG/ML VIAL. IV PRN ×3 (16:36→22:46)
[2019-09-03 19:25] VITALS: BP 113/71
[2019-09-03] MEDS ORDERED: traMADol 50 MG TABLET PO PRN (21:15)
[2019-09-03] MEDS ORDERED: clonazePAM 0.5 MG TABLET PO PRN (21:30)
[2019-09-03] MEDS: levETIRAcetam 500 MG TABLET PO SCH (22:40)
[2019-09-03] MEDS: MIRTAZAPINE 15 MG TABLET PO SCH (22:41)
[2019-09-03] MEDS: hydrALAZINE 25 MG TABLET PO SCH (22:41)
[2019-09-03] MEDS: FAMOTIDINE 20 MG TABLET. PO SCH (22:41)
[2019-09-03] MEDS: METOPROLOL TART IMMED RELEASE 25 MG TABLET. PO SCH (22:42)
[2019-09-03 23:47] VITALS: BP 119/71
[2019-09-04 03:20] VITALS: BP 133/63
[2019-09-04 04:51] LABS: BASO % 0 % (0-3); EOS # 0.5 x10^3/uL (0.0-0.7); EOS % 8 % (0-3); HEMATOCRIT 36.6 % (39.0-53.0); HEMOGLOBIN 12.1 g/dL (13.0-17.5); LYMPH # 0.7 x10^3/uL (1.0-4.8); LYMPH % 13 % (24-48); MEAN CORPUSCULAR HEMOGLOBIN 31 pg (25-35); MEAN CORPUSCULAR HGB CONC 33 g/dL (31-37); MEAN CORPUSCULAR VOLUME 93 fL (79-100); MONO # 0.7 x10^3/uL (0.0-1.1); MONO % 13 % (0-9); NEUT # 3.8 x10^3/uL (1.8-7.7); NEUT % 66 % (31-73); PLATELET COUNT 221 x10^3/uL (140-400); RED BLOOD COUNT 3.95 x10^6/uL (4.30-5.70); RED CELL DISTRIBUTION WIDTH 16.5 % (11.5-14.5); WHITE BLOOD COUNT 5.7 x10^3/uL (4.0-11.0)
[2019-09-04 05:12] LABS: ALBUMIN 3.4 g/dL (3.4-5.0); CALCIUM 9.5 mg/dL (8.5-10.1); CREATININE 0.9 mg/dL (0.7-1.3); GFR 85.8; POTASSIUM 3.8 mmol/L (3.5-5.1); TOTAL BILIRUBIN 0.7 mg/dL (0.2-1.0); TOTAL PROTEIN 6.9 g/dL (6.4-8.2)
[2019-09-04] MEDS: MORPHINE SULFATE 2 MG/ML VIAL. IV PRN ×2 (06:12→08:35)
[2019-09-04] MEDS: guaiFENesin DM 600/30MG 1 TAB TAB.ER.12H PO PRN (06:12)
[2019-09-04 07:27] VITALS: BP 166/94
[2019-09-04] MEDS: IPRATRPIUM/ALBUTEROL 0.5/2.5MG 3 ML NEBU. NEB SCH ×3 (08:26→19:42)
[2019-09-04] MEDS: FAMOTIDINE 20 MG TABLET. PO SCH ×2 (08:32→20:39)
[2019-09-04] MEDS: SERTRALINE 50 MG TABLET. PO SCH (08:33)
[2019-09-04] MEDS: FUROSEMIDE 40 MG TABLET. PO SCH (08:33)
[2019-09-04] MEDS: levETIRAcetam 500 MG TABLET PO SCH ×2 (08:33→20:39)
[2019-09-04] MEDS: ISOSORBIDE MONONITRATE ER 30 MG TAB.ER.24H PO SCH (08:33)
[2019-09-04] MEDS: CETIRIZINE HCL 10 MG TABLET. PO SCH (08:34)
[2019-09-04] MEDS: DIGOXIN 125 MCG TABLET. PO SCH (08:34)
[2019-09-04] MEDS: hydrALAZINE 25 MG TABLET PO SCH ×2 (08:34→20:38)
[2019-09-04] MEDS: METOPROLOL TART IMMED RELEASE 25 MG TABLET. PO SCH ×2 (08:35→20:39)
[2019-09-04] MEDS ORDERED: HYDROmorphone 2 MG/ML VIAL IV PRN (09:30)
[2019-09-04] MEDS ORDERED: HYDROcodone/APAP 5/325MG 1 TAB TABLET PO PRN (09:30)
--- NOTE | 2019-09-04 09:37 | HP ---
ADMIT DATE: 09/03/2019 CHIEF COMPLAINT: Shortness of breath and left chest wall pain. HISTORY OF PRESENT ILLNESS AND HOSPITAL COURSE: This patient is a 59-year-old male with significant COPD on 5-6 liters nasal cannula at home chronically as well as diastolic congestive heart failure for which she was hospitalized approximately one month ago at [facility], was in his usual state of health until approximately 3 days ago when he fell out of bed. He had acute left chest pain, did not come to the hospital and began becoming increasingly short of breath over the last several days and came to the Emergency Room for further evaluation. CT of the chest confirmed a nondisplaced left lateral seventh rib fracture without pneumothorax as well as a small right pleural effusion and a new consolidation in the right middle lobe with suspected atelectasis of the right upper and right lower lobes. The patient has significant wheezing and hypoxia. Therefore, he was admitted for further evaluation, oxygen support, pain control and pulmonary toilet. PAST MEDICAL HISTORY: Again is significant for: 1. Oxygen-dependent COPD, 2. Chronic diastolic congestive heart failure. 3. Morbid obesity. 4. Hypertension. 5. History of colon cancer in 2006. 6. History of oral cancer in 1993. 7. Anxiety, depression. 8. Reflux disease. 9. BPH. 10. Seizure disorder. FAMILY HISTORY: Mother is with diabetes and heart problems. Father is with stomach cancer. SOCIAL HISTORY: The patient is a former smoker, quit in 02/2019 after extended hospital stay requiring intubation and tracheostomy and LTAC care. The patient drinks beer. He lives with his spouse, who provides assistance. ALLERGIES: The patient has no known drug allergies. REVIEW OF SYSTEMS: The patient was in usual state of health, although chronically debilitated from COPD until his recent fall out of bed on 2 days hospital prior to hospitalization. The patient denies fever, productive sputum, nausea, vomiting, diarrhea, recent weight gain or weight loss. PHYSICAL EXAMINATION: GENERAL: This is a morbidly obese male who is alert and oriented x 3. HEENT: Benign. NECK: Supple. CARDIAC: Regular rate and rhythm. LUNGS: Revealed wheezes bilaterally with obvious splinting on inspiration. Acute tenderness to left chest wall. ABDOMEN: Soft, nontender. EXTREMITIES: Showed 1+ pulses bilaterally with 2+ pitting edema. NEUROLOGIC: Showed no unilateral findings. ASSESSMENT: 1. Acute on chronic respiratory failure. 2. Left seventh rib fracture. 3. New pneumonia, right middle lobe. PLAN: To proceed with pulmonary toilet, pain control. Consult Pulmonary Medicine and continue IV antibiotics and pulmonary toilet. MICHELLE GRAJEDA MD DR: ADITI/philip JOB#: [id number] / [id number]
[2019-09-04] MEDS: HYDROmorphone 2 MG/ML VIAL IV PRN ×3 (10:14→23:48)
[2019-09-04] MEDS: PIPERACILLIN/TAZOBACTAM 4.5 GM in IV NORMAL SALINE 100ML 100 ML IV SCH ×4 (10:15→23:49)
[2019-09-04 10:17] VITALS: BP 104/70
--- NOTE | 2019-09-04 10:26 | RAD ---
CHEST AP ONLY History: CHF Comparison: July 20, 2019 Findings: Single view of the chest is submitted. Pericardial cardiac silhouette is again enlarged. There is small left pleural effusion greater than previously, adjacent airspace opacity also increased. There is no pneumothorax. There is tortuous thoracic aorta. There is appearance of increased prominence of the mediastinal width although findings could be accentuated by lesser degree of inspiration for this exam. Impression: 1. There is again enlargement of the pericardial cardiac silhouette, increased small bilateral pleural effusions with adjacent airspace opacity which may be due to edema although infiltrates not excludable. 2. There is appearance of increased prominence of mediastinal width, could be accentuated by lesser degree of inspiration for exam although otherwise cannot accurately evaluate for other pathology. Electronically signed by: Krishna Orourke MD (09/04/2019 10:23 AM) [facility]
--- NOTE | 2019-09-04 12:15 | PDOC ---
PULMONARY PROGRESS NOTES Vitals Vital Signs Date Time Temp Pulse Resp B/P (MAP) Pulse Ox O2 Delivery O2 Flow Rate FiO2 09/04/19 10:54 24 93 BiPAP/CPAP 09/04/19 10:17 98.0 86 104/70 (81) 98.0 09/04/19 10:14 10.0 General: Alert HEENT: Other Lungs: Clear Cardiovascular: S1, S2 Abdomen: Soft, Non-tender Extremities: Other Labs Laboratory Tests Test 09/03/19 12:32 09/04/19 04:30 White Blood Count 8.6 x10^3/uL (4.0-11.0) 5.7 x10^3/uL (4.0-11.0) Red Blood Count 4.25 x10^6/uL (4.30-5.70) 3.95 x10^6/uL (4.30-5.70) Hemoglobin 13.1 g/dL (13.0-17.5) 12.1 g/dL (13.0-17.5) Hematocrit 39.1 % (39.0-53.0) 36.6 % (39.0-53.0) Mean Corpuscular Volume 92 fL (79-100) 93 fL (79-100) Mean Corpuscular Hemoglobin 31 pg (25-35) 31 pg (25-35) Mean Corpuscular Hemoglobin Concent 33 g/dL (31-37) 33 g/dL (31-37) Red Cell Distribution Width 16.5 % (11.5-14.5) 16.5 % (11.5-14.5) Platelet Count 243 x10^3/uL (140-400) 221 x10^3/uL (140-400) Neutrophils (%) (Auto) 76 % (31-73) 66 % (31-73) Lymphocytes (%) (Auto) 9 % (24-48) 13 % (24-48) Monocytes (%) (Auto) 10 % (0-9) 13 % (0-9) Eosinophils (%) (Auto) 5 % (0-3) 8 % (0-3) Basophils (%) (Auto) 1 % (0-3) 0 % (0-3) Neutrophils # (Auto) 6.5 x10^3/uL (1.8-7.7) 3.8 x10^3/uL (1.8-7.7) Lymphocytes # (Auto) 0.8 x10^3/uL (1.0-4.8) 0.7 x10^3/uL (1.0-4.8) Monocytes # (Auto) 0.8 x10^3/uL (0.0-1.1) 0.7 x10^3/uL (0.0-1.1) Eosinophils # (Auto) 0.4 x10^3/uL (0.0-0.7) 0.5 x10^3/uL (0.0-0.7) Basophils # (Auto) 0.0 x10^3/uL (0.0-0.2) 0.0 x10^3/uL (0.0-0.2) Sodium Level 139 mmol/L (136-145) 141 mmol/L (136-145) Potassium Level 4.4 mmol/L (3.5-5.1) 3.8 mmol/L (3.5-5.1) Chloride Level 98 mmol/L (98-107) 99 mmol/L (98-107) Carbon Dioxide Level 31 mmol/L (21-32) 33 mmol/L (21-32) Anion Gap 10 (6-14) 9 (6-14) Blood Urea Nitrogen 9 mg/dL (8-26) 14 mg/dL (8-26) Creatinine 0.8 mg/dL (0.7-1.3) 0.9 mg/dL (0.7-1.3) Estimated GFR (Cockcroft-Gault) 98.3 85.8 BUN/Creatinine Ratio 11 (6-20) 16 (6-20) Glucose Level 98 mg/dL (70-99) 92 mg/dL (70-99) Calcium Level 9.2 mg/dL (8.5-10.1) 9.5 mg/dL (8.5-10.1) Total Bilirubin 0.8 mg/dL (0.2-1.0) 0.7 mg/dL (0.2-1.0) Aspartate Amino Transf (AST/SGOT) 11 U/L (15-37) 12 U/L (15-37) Alanine Aminotransferase (ALT/SGPT) 12 U/L (16-63) 11 U/L (16-63) Alkaline Phosphatase 86 U/L (46-116) 74 U/L (46-116) Total Protein 7.5 g/dL (6.4-8.2) 6.9 g/dL (6.4-8.2) Albumin 3.8 g/dL (3.4-5.0) 3.4 g/dL (3.4-5.0) Albumin/Globulin Ratio 1.0 (1.0-1.7) 1.0 (1.0-1.7) Laboratory Tests Test 09/03/19 12:32 09/04/19 04:30 White Blood Count 8.6 x10^3/uL (4.0-11.0) 5.7 x10^3/uL (4.0-11.0) Red Blood Count 4.25 x10^6/uL (4.30-5.70) 3.95 x10^6/uL (4.30-5.70) Hemoglobin 13.1 g/dL (13.0-17.5) 12.1 g/dL (13.0-17.5) Hematocrit 39.1 % (39.0-53.0) 36.6 % (39.0-53.0) Mean Corpuscular Volume 92 fL (79-100) 93 fL (79-100) Mean Corpuscular Hemoglobin 31 pg (25-35) 31 pg (25-35) Mean Corpuscular Hemoglobin Concent 33 g/dL (31-37) 33 g/dL (31-37) Red Cell Distribution Width 16.5 % (11.5-14.5) 16.5 % (11.5-14.5) Platelet Count 243 x10^3/uL (140-400) 221 x10^3/uL (140-400) Neutrophils (%) (Auto) 76 % (31-73) 66 % (31-73) Lymphocytes (%) (Auto) 9 % (24-48) 13 % (24-48) Monocytes (%) (Auto) 10 % (0-9) 13 % (0-9) Eosinophils (%) (Auto) 5 % (0-3) 8 % (0-3) Basophils (%) (Auto) 1 % (0-3) 0 % (0-3) Neutrophils # (Auto) 6.5 x10^3/uL (1.8-7.7) 3.8 x10^3/uL (1.8-7.7) Lymphocytes # (Auto) 0.8 x10^3/uL (1.0-4.8) 0.7 x10^3/uL (1.0-4.8) Monocytes # (Auto) 0.8 x10^3/uL (0.0-1.1) 0.7 x10^3/uL (0.0-1.1) Eosinophils # (Auto) 0.4 x10^3/uL (0.0-0.7) 0.5 x10^3/uL (0.0-0.7) Basophils # (Auto) 0.0 x10^3/uL (0.0-0.2) 0.0 x10^3/uL (0.0-0.2) Sodium Level 139 mmol/L (136-145) 141 mmol/L (136-145) Potassium Level 4.4 mmol/L (3.5-5.1) 3.8 mmol/L (3.5-5.1) Chloride Level 98 mmol/L (98-107) 99 mmol/L (98-107) Carbon Dioxide Level 31 mmol/L (21-32) 33 mmol/L (21-32) Anion Gap 10 (6-14) 9 (6-14) Blood Urea Nitrogen 9 mg/dL (8-26) 14 mg/dL (8-26) Creatinine 0.8 mg/dL (0.7-1.3) 0.9 mg/dL (0.7-1.3) Estimated GFR (Cockcroft-Gault) 98.3 85.8 BUN/Creatinine Ratio 11 (6-20) 16 (6-20) Glucose Level 98 mg/dL (70-99) 92 mg/dL (70-99) Calcium Level 9.2 mg/dL (8.5-10.1) 9.5 mg/dL (8.5-10.1) Total Bilirubin 0.8 mg/dL (0.2-1.0) 0.7 mg/dL (0.2-1.0) Aspartate Amino Transf (AST/SGOT) 11 U/L (15-37) 12 U/L (15-37) Alanine Aminotransferase (ALT/SGPT) 12 U/L (16-63) 11 U/L (16-63) Alkaline Phosphatase 86 U/L (46-116) 74 U/L (46-116) Total Protein 7.5 g/dL (6.4-8.2) 6.9 g/dL (6.4-8.2) Albumin 3.8 g/dL (3.4-5.0) 3.4 g/dL (3.4-5.0) Albumin/Globulin Ratio 1.0 (1.0-1.7) 1.0 (1.0-1.7) Medications Active Scripts Medications Dose Route/Sig Max Daily Dose Days Date Category Spiriva (Tiotropium Hector) 18 Mcg Cap.w.dev 1 Cap IH DAILY 09/03/19 Reported Lorazepam 0.5 Mg Tablet 1 Tab PO TID 07/18/19 Reported Tramadol Hcl 50 Mg Tablet 50 Mg PO PRN Q6HRS PRN 30 06/24/19 Rx Clonazepam 1 Mg Tablet 1 Mg PO TID PRN PRN 30 06/24/19 Rx Levetiracetam 500 Mg Tablet 500 Mg PO BID 06/20/19 Reported Albuterol Sulfate Neb Soln (Albuterol Sulfate) 0.63 Mg/3 Ml Vial.neb 0.63 Mg NEB PRN Q4HRS PRN 06/20/19 Reported Mucinex Dm Er 600-30 Mg Tablet (Guaifenesin/Dextromethorphan) 1 Each Tab.er.12h 1,200 Mg PO BID PRN 06/20/19 Reported Metoprolol Tartrate 25 Mg Tablet 25 Mg PO BID 06/20/19 Reported Isosorbide Mononitrate Er (Isosorbide Mononitrate) 30 Mg Tab.er.24h 30 Mg PO DAILY 06/20/19 Reported Mirtazapine 15 Mg Tablet 7.5 Mg PO HS 06/20/19 Reported Furosemide 40 Mg Tablet 40 Mg PO DAILY 06/20/19 Reported Zoloft (Sertraline Hcl) 100 Mg Tablet 100 Mg PO DAILY 06/20/19 Reported Loratadine 10 Mg Tablet 10 Mg PO DAILY 06/20/19 Reported Pepcid (Famotidine) 20 Mg Tablet 20 Mg PO BID 06/20/19 Reported Hydralazine Hcl 25 Mg Tablet 25 Mg PO BID 06/20/19 Reported Eliquis (Apixaban) 5 Mg Tablet 5 Mg PO BID 06/20/19 Reported Flomax (Tamsulosin Hcl) 0.4 Mg Cap.er.24h 1 Cap PO DAILY 06/20/19 Reported Digoxin 125 Mcg Tablet 125 Mcg PO DAILY 02/23/19 Reported Impression . NOTE DICTATED A/C RESP FAILURE AECOPD ACUTE PNEUMONIA SHAKA PRIETO MD Sep 04, 2019 12:15
--- NOTE | 2019-09-04 12:56 | CONS ---
DATE OF CONSULTATION: 09/04/2019 ATTENDING PHYSICIAN: Hussain Morataya MD. CONSULTING PHYSICIAN: Shaka Prieto MD. REASON FOR CONSULTATION: The patient seen in pulmonary consultation at the request of Dr. Morataya for chronic respiratory failure. HISTORY OF PRESENT ILLNESS: The patient is a 59-year-old well known to me on home AVAPS noninvasive ventilation. He presents today after falling at home. The patient had the imaging studies including a CT chest, which revealed a fracture of a left lateral 7th rib fracture. There was a small right-sided effusion and mild consolidation in the right middle lobe, right upper lobe and right lower lobe atelectasis. I was asked to see him in consultation. The patient has been doing relatively well with the AVAPS at home. He denies fever or chills. No productive cough. PAST MEDICAL HISTORY: Otherwise remarkable for chronic respiratory failure, chronic cor pulmonale, chronic hypercapnia, obstructive sleep apnea, anxiety disorder, chronic diastolic heart failure, COPD, morbid obesity, history of colon cancer diagnosed in 2006, reflux and BPH. PAST SURGICAL HISTORY: No recent major surgeries. FAMILY HISTORY: Mother with diabetes and heart problem. Father from stomach cancer. SOCIAL HISTORY: He is a former smoker, quit in February 2019. ALLERGIES: No known drug allergies. REVIEW OF SYSTEMS: CONSTITUTIONAL: No fever or chills. EYES: No change in visual acuity. HEENT: No nasal congestion or sore throat. PULMONARY: As indicated above. CARDIOVASCULAR: No chest pain. No pressure. GASTROINTESTINAL: No nausea, vomiting, diarrhea. GENITOURINARY: No dysuria or frequency. MUSCULOSKELETAL: No localized muscle aches or joint pains. SKIN: No new skin rashes. NEUROLOGIC: No headaches, diplopia, or blurred vision. CURRENT MEDICATIONS: List was reviewed. PHYSICAL EXAMINATION: VITAL SIGNS: Stable. O2 saturation was greater than 92%. HEENT: Eyes, the sclerae were nonicteric. NECK: Jugular venous distention was not elevated. No lymphadenopathy. CHEST: Full expansion. LUNGS: Adequate airway flow with no wheezes. CARDIOVASCULAR: Regular rate and rhythm with S1, S2, no S3. ABDOMEN: Soft, obese. EXTREMITIES: No clubbing, cyanosis, 1 edema. NEUROLOGICAL: The patient was awake, alert, following commands. A detailed neuro exam was not performed. LABORATORY DATA: Reviewed. White count was normal. Hemoglobin and hematocrit were noted. Electrolytes were noted. IMPRESSION: 1. Baqna-ns-xshfbxa respiratory failure, multifactorial. 2. Vubsq-kr-ouewoja cor pulmonale. 3. Left seventh rib fracture, status post fall at home. 4. Pneumonia, right middle lobe. PLAN: 1. Continue current IV antibiotics and steroids. 2. Diurese. 3. Home AVAPS. 4. Continue home meds. I do appreciate the privilege in sharing in the patient's care. SHAKA PRIETO MD DR: SAMANTHA/philip JOB#: [id number] / [id number]
[2019-09-04 14:18] VITALS: BP 104/65
[2019-09-04 19:52] VITALS: BP 111/77
[2019-09-04] MEDS: MIRTAZAPINE 15 MG TABLET PO SCH (20:38)
[2019-09-04] MEDS: DOCUSATE SODIUM 100 MG CAPSULE. PO SCH (20:38)
[2019-09-04] MEDS: LACTOBACILLUS RHAMNOSUS GG 1 CAPSULE. PO SCH (20:38)
[2019-09-04] MEDS: HYDROcodone/APAP 5/325MG 1 TAB TABLET PO PRN (20:40)
[2019-09-04 22:53] VITALS: BP 111/76
[2019-09-05 03:10] VITALS: BP 107/64
[2019-09-05] MEDS: HYDROcodone/APAP 5/325MG 1 TAB TABLET PO PRN ×3 (03:53→17:00)
[2019-09-05] MEDS: PIPERACILLIN/TAZOBACTAM 4.5 GM in IV NORMAL SALINE 100ML 100 ML IV SCH ×3 (05:23→18:28)
[2019-09-05] MEDS: HYDROmorphone 2 MG/ML VIAL IV PRN ×2 (05:23→11:43)
[2019-09-05 05:24] LABS: BASO % 1 % (0-3); EOS # 0.5 x10^3/uL (0.0-0.7); EOS % 10 % (0-3); HEMATOCRIT 39.3 % (39.0-53.0); HEMOGLOBIN 13.1 g/dL (13.0-17.5); LYMPH # 0.7 x10^3/uL (1.0-4.8); LYMPH % 15 % (24-48); MEAN CORPUSCULAR HEMOGLOBIN 31 pg (25-35); MEAN CORPUSCULAR HGB CONC 33 g/dL (31-37); MEAN CORPUSCULAR VOLUME 93 fL (79-100); MONO # 0.7 x10^3/uL (0.0-1.1); MONO % 14 % (0-9); NEUT # 3.1 x10^3/uL (1.8-7.7); NEUT % 61 % (31-73); PLATELET COUNT 227 x10^3/uL (140-400); RED BLOOD COUNT 4.23 x10^6/uL (4.30-5.70); RED CELL DISTRIBUTION WIDTH 16.7 % (11.5-14.5); WHITE BLOOD COUNT 5.1 x10^3/uL (4.0-11.0)
[2019-09-05 05:31] LABS: CALCIUM 9.3 mg/dL (8.5-10.1); CREATININE 0.9 mg/dL (0.7-1.3); GFR 85.8; POTASSIUM 3.9 mmol/L (3.5-5.1)
[2019-09-05] MEDS: IPRATRPIUM/ALBUTEROL 0.5/2.5MG 3 ML NEBU. NEB SCH ×4 (05:43→21:18)
--- NOTE | 2019-09-05 06:55 | EKG ---
[facility] [address] [place] [address] Test Date: 2019-09-03 Test Time: 12:16:47 Pat Name: TITO MEHTA Department: Room: 252 1 Gender: M [employer] Emergency Care Technician: : 1960 Requested By: MICHELLE GRAJEDA Order Number: [id number] Reading MD: Measurements Intervals [place] Rate: 71 P: WI: QRS: 56 QRSD: 98 T: 24 QT: 352 QTc: 387 Interpretive Statements IRREGULAR RHYTHM, NO P-WAVE FOUND LOW LIMB LEAD VOLTAGE NO SPECIFIC ECG ABNORMALITIES RI6.01 No previous ECG available for comparison
[2019-09-05 07:00] VITALS: BP 120/82
--- NOTE | 2019-09-05 09:04 | PDOC ---
PROGRESS NOTES Subjective Left chest wall pain with movement, cough etc, slept with Bipap overnight, no bowel or bladder symptoms, no cardiac symptoms, no neurologic symptoms but he still has a tender area of right parietal scalp from fall, he would like a diuretic does for his swollen feet Objective Afebrile General: A&O Heart: on monitor Lungs: diminished but clear Abd: obese, soft, non tender Ext: 1+ edema of both feet CBC, BMP both WNL Vital Signs Vital Signs Date Time Temp Pulse Resp B/P (MAP) Pulse Ox O2 Delivery O2 Flow Rate FiO2 09/05/19 07:00 97.2 100 22 120/82 (95) 93 Nasal Cannula 10.0 97.2 I & O Intake and Output 09/05/19 06:59 Intake Total 1040 ml Output Total 2100 ml Balance -1060 ml Intake Oral 940 ml IV Total 100 ml Output Urine Total 2100 ml # Voids 1 Assessment and Plan 1. Acute on chronic respiratory failure - continue O2, bipap, neb treatments. 2. Left seventh rib fracture - pain control. 3. New pneumonia vs atelectasis, right middle lobe - continue antibiotic coverage. 4. LE edema - Lasix x 1 - good diuresis so far though Roseann JAY MD Sep 05, 2019 09:04
[2019-09-05] MEDS: DIGOXIN 125 MCG TABLET. PO SCH (09:11)
[2019-09-05] MEDS: ISOSORBIDE MONONITRATE ER 30 MG TAB.ER.24H PO SCH (09:11)
[2019-09-05] MEDS: levETIRAcetam 500 MG TABLET PO SCH ×2 (09:11→20:49)
[2019-09-05] MEDS: CETIRIZINE HCL 10 MG TABLET. PO SCH (09:11)
[2019-09-05] MEDS: SERTRALINE 50 MG TABLET. PO SCH (09:12)
[2019-09-05] MEDS: DOCUSATE SODIUM 100 MG CAPSULE. PO SCH ×2 (09:12→20:49)
[2019-09-05] MEDS: hydrALAZINE 25 MG TABLET PO SCH ×2 (09:12→20:49)
[2019-09-05] MEDS: FUROSEMIDE 40 MG TABLET. PO SCH (09:12)
[2019-09-05] MEDS: METOPROLOL TART IMMED RELEASE 25 MG TABLET. PO SCH ×2 (09:12→20:50)
[2019-09-05] MEDS: FAMOTIDINE 20 MG TABLET. PO SCH ×2 (09:12→20:49)
[2019-09-05] MEDS: LACTOBACILLUS RHAMNOSUS GG 1 CAPSULE. PO SCH ×2 (09:12→20:49)
[2019-09-05] MEDS ORDERED: FUROSEMIDE 20 MG/2 ML VIAL. IVP ONE (09:15)
--- NOTE | 2019-09-05 10:01 | PDOC ---
PULMONARY PROGRESS NOTES Subjective PT WITH NO INCREASE SOA Vitals Vital Signs Date Time Temp Pulse Resp B/P (MAP) Pulse Ox O2 Delivery O2 Flow Rate FiO2 09/05/19 09:12 100 120/82 09/05/19 08:00 Nasal Cannula 10.0 09/05/19 07:00 97.2 22 93 97.2 ROS: No Nausea, No Chest Pain, No Abdominal Pain, No Increase Cough General: Alert Lungs: Clear Cardiovascular: S1, S2 Abdomen: Soft, Non-tender Extremities: Other Labs Laboratory Tests Test 09/03/19 12:32 09/04/19 04:30 09/05/19 04:04 White Blood Count 8.6 x10^3/uL (4.0-11.0) 5.7 x10^3/uL (4.0-11.0) 5.1 x10^3/uL (4.0-11.0) Red Blood Count 4.25 x10^6/uL (4.30-5.70) 3.95 x10^6/uL (4.30-5.70) 4.23 x10^6/uL (4.30-5.70) Hemoglobin 13.1 g/dL (13.0-17.5) 12.1 g/dL (13.0-17.5) 13.1 g/dL (13.0-17.5) Hematocrit 39.1 % (39.0-53.0) 36.6 % (39.0-53.0) 39.3 % (39.0-53.0) Mean Corpuscular Volume 92 fL (79-100) 93 fL (79-100) 93 fL (79-100) Mean Corpuscular Hemoglobin 31 pg (25-35) 31 pg (25-35) 31 pg (25-35) Mean Corpuscular Hemoglobin Concent 33 g/dL (31-37) 33 g/dL (31-37) 33 g/dL (31-37) Red Cell Distribution Width 16.5 % (11.5-14.5) 16.5 % (11.5-14.5) 16.7 % (11.5-14.5) Platelet Count 243 x10^3/uL (140-400) 221 x10^3/uL (140-400) 227 x10^3/uL (140-400) Neutrophils (%) (Auto) 76 % (31-73) 66 % (31-73) 61 % (31-73) Lymphocytes (%) (Auto) 9 % (24-48) 13 % (24-48) 15 % (24-48) Monocytes (%) (Auto) 10 % (0-9) 13 % (0-9) 14 % (0-9) Eosinophils (%) (Auto) 5 % (0-3) 8 % (0-3) 10 % (0-3) Basophils (%) (Auto) 1 % (0-3) 0 % (0-3) 1 % (0-3) Neutrophils # (Auto) 6.5 x10^3/uL (1.8-7.7) 3.8 x10^3/uL (1.8-7.7) 3.1 x10^3/uL (1.8-7.7) Lymphocytes # (Auto) 0.8 x10^3/uL (1.0-4.8) 0.7 x10^3/uL (1.0-4.8) 0.7 x10^3/uL (1.0-4.8) Monocytes # (Auto) 0.8 x10^3/uL (0.0-1.1) 0.7 x10^3/uL (0.0-1.1) 0.7 x10^3/uL (0.0-1.1) Eosinophils # (Auto) 0.4 x10^3/uL (0.0-0.7) 0.5 x10^3/uL (0.0-0.7) 0.5 x10^3/uL (0.0-0.7) Basophils # (Auto) 0.0 x10^3/uL (0.0-0.2) 0.0 x10^3/uL (0.0-0.2) 0.0 x10^3/uL (0.0-0.2) Sodium Level 139 mmol/L (136-145) 141 mmol/L (136-145) 140 mmol/L (136-145) Potassium Level 4.4 mmol/L (3.5-5.1) 3.8 mmol/L (3.5-5.1) 3.9 mmol/L (3.5-5.1) Chloride Level 98 mmol/L (98-107) 99 mmol/L (98-107) 103 mmol/L (98-107) Carbon Dioxide Level 31 mmol/L (21-32) 33 mmol/L (21-32) 33 mmol/L (21-32) Anion Gap 10 (6-14) 9 (6-14) 4 (6-14) Blood Urea Nitrogen 9 mg/dL (8-26) 14 mg/dL (8-26) 12 mg/dL (8-26) Creatinine 0.8 mg/dL (0.7-1.3) 0.9 mg/dL (0.7-1.3) 0.9 mg/dL (0.7-1.3) Estimated GFR (Cockcroft-Gault) 98.3 85.8 85.8 BUN/Creatinine Ratio 11 (6-20) 16 (6-20) Glucose Level 98 mg/dL (70-99) 92 mg/dL (70-99) 92 mg/dL (70-99) Calcium Level 9.2 mg/dL (8.5-10.1) 9.5 mg/dL (8.5-10.1) 9.3 mg/dL (8.5-10.1) Total Bilirubin 0.8 mg/dL (0.2-1.0) 0.7 mg/dL (0.2-1.0) Aspartate Amino Transf (AST/SGOT) 11 U/L (15-37) 12 U/L (15-37) Alanine Aminotransferase (ALT/SGPT) 12 U/L (16-63) 11 U/L (16-63) Alkaline Phosphatase 86 U/L (46-116) 74 U/L (46-116) Total Protein 7.5 g/dL (6.4-8.2) 6.9 g/dL (6.4-8.2) Albumin 3.8 g/dL (3.4-5.0) 3.4 g/dL (3.4-5.0) Albumin/Globulin Ratio 1.0 (1.0-1.7) 1.0 (1.0-1.7) Laboratory Tests Test 09/05/19 04:04 White Blood Count 5.1 x10^3/uL (4.0-11.0) Red Blood Count 4.23 x10^6/uL (4.30-5.70) Hemoglobin 13.1 g/dL (13.0-17.5) Hematocrit 39.3 % (39.0-53.0) Mean Corpuscular Volume 93 fL (79-100) Mean Corpuscular Hemoglobin 31 pg (25-35) Mean Corpuscular Hemoglobin Concent 33 g/dL (31-37) Red Cell Distribution Width 16.7 % (11.5-14.5) Platelet Count 227 x10^3/uL (140-400) Neutrophils (%) (Auto) 61 % (31-73) Lymphocytes (%) (Auto) 15 % (24-48) Monocytes (%) (Auto) 14 % (0-9) Eosinophils (%) (Auto) 10 % (0-3) Basophils (%) (Auto) 1 % (0-3) Neutrophils # (Auto) 3.1 x10^3/uL (1.8-7.7) Lymphocytes # (Auto) 0.7 x10^3/uL (1.0-4.8) Monocytes # (Auto) 0.7 x10^3/uL (0.0-1.1) Eosinophils # (Auto) 0.5 x10^3/uL (0.0-0.7) Basophils # (Auto) 0.0 x10^3/uL (0.0-0.2) Sodium Level 140 mmol/L (136-145) Potassium Level 3.9 mmol/L (3.5-5.1) Chloride Level 103 mmol/L (98-107) Carbon Dioxide Level 33 mmol/L (21-32) Anion Gap 4 (6-14) Blood Urea Nitrogen 12 mg/dL (8-26) Creatinine 0.9 mg/dL (0.7-1.3) Estimated GFR (Cockcroft-Gault) 85.8 Glucose Level 92 mg/dL (70-99) Calcium Level 9.3 mg/dL (8.5-10.1) Medications Active Scripts Medications Dose Route/Sig Max Daily Dose Days Date Category Spiriva (Tiotropium [place]) 18 Mcg Cap.w.dev 1 Cap IH DAILY 09/03/19 Reported Lorazepam 0.5 Mg Tablet 1 Tab PO TID 07/18/19 Reported Tramadol Hcl 50 Mg Tablet 50 Mg PO PRN Q6HRS PRN 30 06/24/19 Rx Clonazepam 1 Mg Tablet 1 Mg PO TID PRN PRN 30 06/24/19 Rx Levetiracetam 500 Mg Tablet 500 Mg PO BID 06/20/19 Reported Albuterol Sulfate Neb Soln (Albuterol Sulfate) 0.63 Mg/3 Ml Vial.neb 0.63 Mg NEB PRN Q4HRS PRN 06/20/19 Reported Mucinex Dm Er 600-30 Mg Tablet (Guaifenesin/Dextromethorphan) 1 Each Tab.er.12h 1,200 Mg PO BID PRN 06/20/19 Reported Metoprolol Tartrate 25 Mg Tablet 25 Mg PO BID 06/20/19 Reported Isosorbide Mononitrate Er (Isosorbide Mononitrate) 30 Mg Tab.er.24h 30 Mg PO DAILY 06/20/19 Reported Mirtazapine 15 Mg Tablet 7.5 Mg PO HS 06/20/19 Reported Furosemide 40 Mg Tablet 40 Mg PO DAILY 06/20/19 Reported Zoloft (Sertraline Hcl) 100 Mg Tablet 100 Mg PO DAILY 06/20/19 Reported Loratadine 10 Mg Tablet 10 Mg PO DAILY 06/20/19 Reported Pepcid (Famotidine) 20 Mg Tablet 20 Mg PO BID 06/20/19 Reported Hydralazine Hcl 25 Mg Tablet 25 Mg PO BID 06/20/19 Reported Eliquis (Apixaban) 5 Mg Tablet 5 Mg PO BID 06/20/19 Reported Flomax (Tamsulosin Hcl) 0.4 Mg Cap.er.24h 1 Cap PO DAILY 06/20/19 Reported Digoxin 125 Mcg Tablet 125 Mcg PO DAILY 02/23/19 Reported Impression . MPRESSION: 1. Zgzvs-uc-dbunttf respiratory failure, multifactorial. 2. Qwnas-he-itepjtr cor pulmonale. 3. Left seventh rib fracture, status post fall at home. 4. Pneumonia, right middle lobe. 5. Possible sepsis Plan . improving will continue the same 1. Continue current IV antibiotics and steroids. 2. Diurese. 3. Home AVAPS. 4. Continue home meds. SHAKA PRIETO MD Sep 05, 2019 10:01
[2019-09-05 11:01] VITALS: BP 105/72
[2019-09-05] MEDS ORDERED: POLYETHYLENE GLYCOL 3350 17 GM PACKET. PO PRN (15:00)
[2019-09-05 15:27] VITALS: BP 110/73
--- NOTE | 2019-09-05 15:31 | NUR ---
SS following for discharge planning. SS reviewed pt chart. Pt is from home with spouse and has oxygen and trilogy at home through [facility], ; fax [phone]. No discharge needs noted at this time. SS will continue to follow for discharge planning.
[2019-09-05 19:00] VITALS: BP 136/56
[2019-09-05] MEDS: guaiFENesin DM 600/30MG 1 TAB TAB.ER.12H PO PRN (20:50)
[2019-09-05] MEDS: MIRTAZAPINE 15 MG TABLET PO SCH (20:50)
[2019-09-05 23:00] VITALS: BP 129/62
[2019-09-06] MEDS: PIPERACILLIN/TAZOBACTAM 4.5 GM in IV NORMAL SALINE 100ML 100 ML IV SCH ×3 (01:02→12:15)
[2019-09-06 03:00] VITALS: BP 138/84
[2019-09-06 04:28] LABS: BASO # 0.1 x10^3/uL (0.0-0.2); BASO % 1 % (0-3); EOS # 0.6 x10^3/uL (0.0-0.7); EOS % 10 % (0-3); HEMATOCRIT 35.5 % (39.0-53.0); HEMOGLOBIN 11.9 g/dL (13.0-17.5); LYMPH # 0.7 x10^3/uL (1.0-4.8); LYMPH % 11 % (24-48); MEAN CORPUSCULAR HEMOGLOBIN 31 pg (25-35); MEAN CORPUSCULAR HGB CONC 33 g/dL (31-37); MEAN CORPUSCULAR VOLUME 92 fL (79-100); MONO # 0.8 x10^3/uL (0.0-1.1); MONO % 14 % (0-9); NEUT # 3.8 x10^3/uL (1.8-7.7); NEUT % 64 % (31-73); PLATELET COUNT 219 x10^3/uL (140-400); RED BLOOD COUNT 3.87 x10^6/uL (4.30-5.70); RED CELL DISTRIBUTION WIDTH 16.3 % (11.5-14.5); WHITE BLOOD COUNT 5.9 x10^3/uL (4.0-11.0)
[2019-09-06 04:47] LABS: CALCIUM 8.8 mg/dL (8.5-10.1); CREATININE 0.9 mg/dL (0.7-1.3); GFR 85.8; MAGNESIUM 1.8 mg/dL (1.8-2.4); POTASSIUM 3.5 mmol/L (3.5-5.1)
[2019-09-06 07:00] VITALS: BP 147/94
[2019-09-06] MEDS: IPRATRPIUM/ALBUTEROL 0.5/2.5MG 3 ML NEBU. NEB SCH ×3 (07:45→16:13)
[2019-09-06] MEDS: METOPROLOL TART IMMED RELEASE 25 MG TABLET. PO SCH (08:44)
[2019-09-06] MEDS: ISOSORBIDE MONONITRATE ER 30 MG TAB.ER.24H PO SCH (08:44)
[2019-09-06] MEDS: CETIRIZINE HCL 10 MG TABLET. PO SCH (08:46)
[2019-09-06] MEDS: FAMOTIDINE 20 MG TABLET. PO SCH (08:46)
[2019-09-06] MEDS: guaiFENesin DM 600/30MG 1 TAB TAB.ER.12H PO PRN (08:46)
[2019-09-06] MEDS: DIGOXIN 125 MCG TABLET. PO SCH (08:46)
[2019-09-06] MEDS: DOCUSATE SODIUM 100 MG CAPSULE. PO SCH (08:46)
[2019-09-06] MEDS: levETIRAcetam 500 MG TABLET PO SCH (08:47)
[2019-09-06] MEDS: hydrALAZINE 25 MG TABLET PO SCH (08:47)
[2019-09-06] MEDS: FUROSEMIDE 40 MG TABLET. PO SCH (08:47)
[2019-09-06] MEDS: HYDROcodone/APAP 5/325MG 1 TAB TABLET PO PRN ×2 (08:47→16:18)
[2019-09-06] MEDS: SERTRALINE 50 MG TABLET. PO SCH (08:48)
[2019-09-06] MEDS: LACTOBACILLUS RHAMNOSUS GG 1 CAPSULE. PO SCH (08:48)
[2019-09-06 11:00] VITALS: BP 104/67
--- NOTE | 2019-09-06 11:50 | PDOC ---
PULMONARY PROGRESS NOTES Subjective PT WITH NO INCREASE SOA Vitals Vital Signs Date Time Temp Pulse Resp B/P (MAP) Pulse Ox O2 Delivery O2 Flow Rate FiO2 09/06/19 10:58 90 Nasal Cannula 5.0 09/06/19 08:47 89 147/94 09/06/19 07:00 97.6 22 97.6 ROS: No Nausea, No Chest Pain, No Abdominal Pain, No Increase Cough General: Alert Lungs: Clear Cardiovascular: S1, S2 Abdomen: Soft, Non-tender Extremities: Other Labs Laboratory Tests Test 09/05/19 04:04 09/06/19 04:20 White Blood Count 5.1 x10^3/uL (4.0-11.0) 5.9 x10^3/uL (4.0-11.0) Red Blood Count 4.23 x10^6/uL (4.30-5.70) 3.87 x10^6/uL (4.30-5.70) Hemoglobin 13.1 g/dL (13.0-17.5) 11.9 g/dL (13.0-17.5) Hematocrit 39.3 % (39.0-53.0) 35.5 % (39.0-53.0) Mean Corpuscular Volume 93 fL (79-100) 92 fL (79-100) Mean Corpuscular Hemoglobin 31 pg (25-35) 31 pg (25-35) Mean Corpuscular Hemoglobin Concent 33 g/dL (31-37) 33 g/dL (31-37) Red Cell Distribution Width 16.7 % (11.5-14.5) 16.3 % (11.5-14.5) Platelet Count 227 x10^3/uL (140-400) 219 x10^3/uL (140-400) Neutrophils (%) (Auto) 61 % (31-73) 64 % (31-73) Lymphocytes (%) (Auto) 15 % (24-48) 11 % (24-48) Monocytes (%) (Auto) 14 % (0-9) 14 % (0-9) Eosinophils (%) (Auto) 10 % (0-3) 10 % (0-3) Basophils (%) (Auto) 1 % (0-3) 1 % (0-3) Neutrophils # (Auto) 3.1 x10^3/uL (1.8-7.7) 3.8 x10^3/uL (1.8-7.7) Lymphocytes # (Auto) 0.7 x10^3/uL (1.0-4.8) 0.7 x10^3/uL (1.0-4.8) Monocytes # (Auto) 0.7 x10^3/uL (0.0-1.1) 0.8 x10^3/uL (0.0-1.1) Eosinophils # (Auto) 0.5 x10^3/uL (0.0-0.7) 0.6 x10^3/uL (0.0-0.7) Basophils # (Auto) 0.0 x10^3/uL (0.0-0.2) 0.1 x10^3/uL (0.0-0.2) Sodium Level 140 mmol/L (136-145) 141 mmol/L (136-145) Potassium Level 3.9 mmol/L (3.5-5.1) 3.5 mmol/L (3.5-5.1) Chloride Level 103 mmol/L (98-107) 102 mmol/L (98-107) Carbon Dioxide Level 33 mmol/L (21-32) 32 mmol/L (21-32) Anion Gap 4 (6-14) 7 (6-14) Blood Urea Nitrogen 12 mg/dL (8-26) 12 mg/dL (8-26) Creatinine 0.9 mg/dL (0.7-1.3) 0.9 mg/dL (0.7-1.3) Estimated GFR (Cockcroft-Gault) 85.8 85.8 Glucose Level 92 mg/dL (70-99) 99 mg/dL (70-99) Calcium Level 9.3 mg/dL (8.5-10.1) 8.8 mg/dL (8.5-10.1) Magnesium Level 1.8 mg/dL (1.8-2.4) Laboratory Tests Test 09/06/19 04:20 White Blood Count 5.9 x10^3/uL (4.0-11.0) Red Blood Count 3.87 x10^6/uL (4.30-5.70) Hemoglobin 11.9 g/dL (13.0-17.5) Hematocrit 35.5 % (39.0-53.0) Mean Corpuscular Volume 92 fL (79-100) Mean Corpuscular Hemoglobin 31 pg (25-35) Mean Corpuscular Hemoglobin Concent 33 g/dL (31-37) Red Cell Distribution Width 16.3 % (11.5-14.5) Platelet Count 219 x10^3/uL (140-400) Neutrophils (%) (Auto) 64 % (31-73) Lymphocytes (%) (Auto) 11 % (24-48) Monocytes (%) (Auto) 14 % (0-9) Eosinophils (%) (Auto) 10 % (0-3) Basophils (%) (Auto) 1 % (0-3) Neutrophils # (Auto) 3.8 x10^3/uL (1.8-7.7) Lymphocytes # (Auto) 0.7 x10^3/uL (1.0-4.8) Monocytes # (Auto) 0.8 x10^3/uL (0.0-1.1) Eosinophils # (Auto) 0.6 x10^3/uL (0.0-0.7) Basophils # (Auto) 0.1 x10^3/uL (0.0-0.2) Sodium Level 141 mmol/L (136-145) Potassium Level 3.5 mmol/L (3.5-5.1) Chloride Level 102 mmol/L (98-107) Carbon Dioxide Level 32 mmol/L (21-32) Anion Gap 7 (6-14) Blood Urea Nitrogen 12 mg/dL (8-26) Creatinine 0.9 mg/dL (0.7-1.3) Estimated GFR (Cockcroft-Gault) 85.8 Glucose Level 99 mg/dL (70-99) Calcium Level 8.8 mg/dL (8.5-10.1) Magnesium Level 1.8 mg/dL (1.8-2.4) Medications Active Scripts Medications Dose Route/Sig Max Daily Dose Days Date Category Spiriva (Tiotropium [place]) 18 Mcg Cap.w.dev 1 Cap IH DAILY 09/03/19 Reported Lorazepam 0.5 Mg Tablet 1 Tab PO TID 07/18/19 Reported Tramadol Hcl 50 Mg Tablet 50 Mg PO PRN Q6HRS PRN 30 06/24/19 Rx Clonazepam 1 Mg Tablet 1 Mg PO TID PRN PRN 30 06/24/19 Rx Levetiracetam 500 Mg Tablet 500 Mg PO BID 06/20/19 Reported Albuterol Sulfate Neb Soln (Albuterol Sulfate) 0.63 Mg/3 Ml Vial.neb 0.63 Mg NEB PRN Q4HRS PRN 06/20/19 Reported Mucinex Dm Er 600-30 Mg Tablet (Guaifenesin/Dextromethorphan) 1 Each Tab.er.12h 1,200 Mg PO BID PRN 06/20/19 Reported Metoprolol Tartrate 25 Mg Tablet 25 Mg PO BID 06/20/19 Reported Isosorbide Mononitrate Er (Isosorbide Mononitrate) 30 Mg Tab.er.24h 30 Mg PO DAILY 06/20/19 Reported Mirtazapine 15 Mg Tablet 7.5 Mg PO HS 06/20/19 Reported Furosemide 40 Mg Tablet 40 Mg PO DAILY 06/20/19 Reported Zoloft (Sertraline Hcl) 100 Mg Tablet 100 Mg PO DAILY 06/20/19 Reported Loratadine 10 Mg Tablet 10 Mg PO DAILY 06/20/19 Reported Pepcid (Famotidine) 20 Mg Tablet 20 Mg PO BID 06/20/19 Reported Hydralazine Hcl 25 Mg Tablet 25 Mg PO BID 06/20/19 Reported Eliquis (Apixaban) 5 Mg Tablet 5 Mg PO BID 06/20/19 Reported Flomax (Tamsulosin Hcl) 0.4 Mg Cap.er.24h 1 Cap PO DAILY 06/20/19 Reported Digoxin 125 Mcg Tablet 125 Mcg PO DAILY 02/23/19 Reported Impression . MPRESSION: 1. Drjqr-dz-thayowe respiratory failure, multifactorial. 2. Fxvxo-ah-cnrknin cor pulmonale. 3. Left seventh rib fracture, status post fall at home. 4. Pneumonia, right middle lobe. 5. Possible sepsis Plan . PT BETTER OK TO D/C HOME ON ORAL ANITBX AUGMENTIN FOLLOW UP IN MY OFFICE IN [facility] SHAKA STAFFORD MD Sep 06, 2019 11:50
[2019-09-06 15:00] VITALS: BP 111/73
[2019-09-06] MEDS ORDERED: DOCU100C28 PO (17:49)
[2019-09-06] MEDS ORDERED: HYDR-2761 PO (17:49)
[2019-09-06] MEDS ORDERED: POLY17PO28 PO (17:49)
[2019-09-06] MEDS ORDERED: LACT1CAP19 PO (17:49)
--- NOTE | 2019-09-06 17:58 | PDOC3 ---
Discharge Summary [facility] Date of Admission: Sep 03, 2019 Discharge Date: Sep 06, 2019 Admitting Diagnosis acute on chronic respiratory failure from fall at home resulting in left 7th rib fracture and right middle lobe pneumonia Final Diagnosis same CONSULTS [place] Procedures none Brief Hospital Course Mr. Roche is a 59 old who presented with: Acute on chronic respiratory failure - continue O2, bipap, neb treatments after a fall out of bed at home resulting in left seventh rib fracture requiring pain control. He also had a new pneumonia vs atelectasis, right middle lobe - treated with IV Zosyn and levaquin antibiotic coverage but transitioned to a week of augmentin 875 mg bid at discharge. He also developed LE edema treated with oral and IV Lasix with good diuresis. He slept with Bipap and will continue to use his trilegy vent at home. He was also treated for constipation and required narcotics for pain control, he is now able to take a deep breath without significant pain and get himself up from bed or chair without assist Patient History: Acute myocardial infarction G8 BROTHER FH: stomach cancer 33 FATHER Family history: Cardiomyopathy (situation) G8 BROTHER Family history: Cardiovascular disease (situation) Family history: Diabetes mellitus (situation) 32 MOTHER Family history: Hypertension (situation) G8 BROTHER Disposition home CONDITION AT DISCHARGE: Improved, Stable Diet cardiac Scheduled Apixaban (Eliquis), 5 MG PO BID, (Reported) Digoxin (Digoxin), 125 MCG PO DAILY, (Reported) Docusate Sodium (Docusate Sodium), 100 MG PO BID Famotidine (Pepcid), 20 MG PO BID, (Reported) Furosemide (Furosemide), 40 MG PO DAILY, (Reported) Hydralazine Hcl (Hydralazine Hcl), 25 MG PO BID, (Reported) Isosorbide Mononitrate (Isosorbide Mononitrate Er), 30 MG PO DAILY, (Reported) Lactobacillus Rhamnosus Gg (Culturelle), 1 CAP PO BID Levetiracetam (Levetiracetam), 500 MG PO BID, (Reported) Loratadine (Loratadine), 10 MG PO DAILY, (Reported) Lorazepam (Lorazepam), 1 TAB PO TID, (Reported) Metoprolol Tartrate (Metoprolol Tartrate), 25 MG PO BID, (Reported) Mirtazapine (Mirtazapine), 7.5 MG PO HS, (Reported) Sertraline Hcl (Zoloft), 100 MG PO DAILY, (Reported) Tamsulosin Hcl (Flomax), 1 CAP PO DAILY, (Reported) Tiotropium [place] (Spiriva), 1 CAP IH DAILY, (Reported) Scheduled PRN Albuterol Sulfate (Albuterol Sulfate Neb Soln), 0.63 MG NEB PRN Q4HRS PRN for FOR ASTHMA, (Reported) Clonazepam (Clonazepam), 1 MG PO TID PRN PRN for anxiety Guaifenesin/Dextromethorphan (Mucinex Dm Er 600-30 Mg Tablet), 1,200 MG PO BID PRN for CONGESTION, (Reported) Hydrocodone Bit/Acetaminophen (Hydrocodone-Apap 5-325 ), 2 TAB PO PRN Q4HRS PRN for SEVERE PAIN Polyethylene Glycol 3350 (Polyethylene Glycol 3350), 17 GM PO PRN BID PRN for CONSTIPATION Discontinued Medications Fluticasone Propion/Salmeterol ([place] 100-50 [place]), 1 EACH IH BID, (Reported) Montelukast Sodium (Montelukast Sodium Tablet ), 10 MG PO HS, (Reported) Tramadol Hcl (Tramadol Hcl), 50 MG PO PRN Q6HRS PRN for SEVERE PAIN Follow Up 1 week with CXR the day prior Roseann JAY MD Sep 06, 2019 17:57
--- NOTE | 2019-09-06 19:27 | NUR ---
Discharge Note: SAURABH MEHTA Discharge instructions and discharge home medications reviewed with Patient and a copy given. All questions have been answered and understanding verbalized. Prescriptions given to patient The following instructions and handouts were given: Respiratory failure, pneumonia, new medications Discontinued lines and drains: Peripheral IV intact. Patient discharged to Home with Spouse via Wheelchair
== END 2019-09-06 19:20 | disposition home or self-care (01) | DRG 871 ==
LOC: ER 12:07 → 2 SOUTH 15:21
PROVIDERS: ADMIT Family Medicine; ATTEND Family Medicine
PROC: 5A09357 Assistance with Respiratory Ventilation, Less than 24 Consecutive Hours, Continuous Positive Airway Pressure (ICD-10-PCS; principal; 2019-09-03)
PROC: 5A09357 Assistance with Respiratory Ventilation, Less than 24 Consecutive Hours, Continuous Positive Airway Pressure (ICD-10-PCS; 2019-09-04)
PROC: 5A09357 Assistance with Respiratory Ventilation, Less than 24 Consecutive Hours, Continuous Positive Airway Pressure (ICD-10-PCS; 2019-09-05)
PROC: 5A09357 Assistance with Respiratory Ventilation, Less than 24 Consecutive Hours, Continuous Positive Airway Pressure (ICD-10-PCS; 2019-09-06)
DX: A41.9 Sepsis, unspecified organism (principal); J96.21 Acute and chronic respiratory failure with hypoxia; J96.22 Acute and chronic respiratory failure with hypercapnia; J18.1 Lobar pneumonia, unspecified organism; S22.32XA Fracture of one rib, left side, initial encounter for closed fracture; I50.32 Chronic diastolic (congestive) heart failure; Z68.41 Body mass index [BMI] 40.0-44.9, adult; G40.909 Epilepsy, unspecified, not intractable, without status epilepticus; G47.33 Obstructive sleep apnea (adult) (pediatric); I11.0 Hypertensive heart disease with heart failure; I27.81 Cor pulmonale (chronic); J43.9 Emphysema, unspecified; K21.9 Gastro-esophageal reflux disease without esophagitis; E66.01 Morbid (severe) obesity due to excess calories; F32.9 Major depressive disorder, single episode, unspecified; F41.9 Anxiety disorder, unspecified; K59.00 Constipation, unspecified; N40.0 Benign prostatic hyperplasia without lower urinary tract symptoms; Z80.0 Family history of malignant neoplasm of digestive organs; Z82.49 Family history of ischemic heart disease and other diseases of the circulatory system; Z83.3 Family history of diabetes mellitus; Z85.038 Personal history of other malignant neoplasm of large intestine; Z85.819 Personal history of malignant neoplasm of unspecified site of lip, oral cavity, and pharynx; Z87.891 Personal history of nicotine dependence; Z99.81 Dependence on supplemental oxygen; W06.XXXA Fall from bed, initial encounter; Y93.89 Activity, other specified; Y92.89 Other specified places as the place of occurrence of the external cause; Y99.8 Other external cause status
CPT/HCPCS: 36415; 71045; 71260; 80048; 80053; 83735; 85025; 93005; 94640; 94660; 94760; 96365; 96375; J1170; J1940; J1956; J2270; J2405; J2543; J7620; Q9967; 99285-25; G0378

== ENCOUNTER → 2019-09-08 | Outpatient (CLI) | payer MEDICARE ==
[2019-09-06 15:00] VITALS: BP 111/73
[~2019-09-08] MED LIST changes: +DOCU100C28 PO; +HYDR-2761 PO; +POLY17PO28 PO; +TIOT18CA IH
--- NOTE | 2019-09-08 15:31 | KCIC ---
CHEST PA LATERAL History: Interstitial pneumonitis, shortness of breath Comparison: 09/03/2019 CT chest with contrast and 09/04/2019 AP view the chest. Findings: The cardiomediastinal silhouette is normal. Pulmonary vasculature is borderline. Pulmonary interstitial edema or thickening noted. Opacification of the anterior right lung base is noted and may correspond with pleural thickening, pleural effusion, and atelectasis seen on the recent CT exam of 09/03/2019. No pneumothorax is seen. Pulmonary hyperinflation is present. Old left upper rib fractures are present. Compression fractures of very low thoracic and upper lumbar spine show bodies. IMPRESSION: Moderate improvement of lung base aeration bilaterally. Electronically signed by: Kunal Wade MD (09/08/2019 3:29 PM) [facility]
== END | disposition home or self-care (01) ==
LOC: KCIC 11:49
PROVIDERS: ATTEND Family Medicine
DX: Z09 Encounter for follow-up examination after completed treatment for conditions other than malignant neoplasm (principal); J90 Pleural effusion, not elsewhere classified; J98.11 Atelectasis; J98.4 Other disorders of lung; J84.89 Other specified interstitial pulmonary diseases; M48.55XA Collapsed vertebra, not elsewhere classified, thoracolumbar region, initial encounter for fracture
CPT/HCPCS: 71046

== ENCOUNTER → 2019-09-14 | Outpatient (CLI) | payer MEDICARE ==
[2019-09-06 15:00] VITALS: BP 111/73
[~2019-09-14] MED LIST changes: +IOHEXOL 180 MG/ML 10 ML VIAL. ONE; +methylPREDNISolone ACETATE 40 MG/ML VIAL. ONE
--- NOTE | 2019-09-14 18:29 | PAIN ---
DATE OF SERVICE: 09/14/2019 PROGRESS NOTE FOR PAIN CLINIC DIAGNOSES: Lumbar radiculopathy with lumbar spinal stenosis, lumbar degenerative disk disease and post-lumbar laminectomy syndrome. HISTORY OF PRESENT ILLNESS: The patient is a 59-year-old male who returns for followup, status post initial evaluation and clearance to hold his Eliquis. 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 The patient returns today reporting still significant pain in the low back, slightly more on the right side than the left, but present bilaterally in the lumbar spine with radiation to posterior gluteus, posterior thighs. The patient reports it is a constant pain, is aching and tingling, sharp and constant in the low back with some tingling in the legs as well, worse with walking, standing, changing positions, better with sitting or lying down, but it has been awakening him from sleep at least once or twice a night. The patient reports it is 8 on a scale of 10 at its worst, on average ____ at its least and is an 8 today. The patient reports no new motor or sensory deficits, no new bowel or bladder incontinence or other complications or made that other complaints. PHYSICAL EXAMINATION: VITAL SIGNS: The patient's blood pressure 136/87, pulse 67, respirations 16, temperature 97.9 degrees Fahrenheit, height 6 feet, weight is 323 pounds. GENERAL: The patient is awake, alert, oriented, appropriate, very pleasant demeanor. HEENT: Head shows normocephalic, atraumatic. Extraocular movements are intact and symmetrical. Oral cavity: Mucous membranes moist and pink. Dentition is intact. NECK: Shows anterior throat supple without palpable lymphadenopathy noted. Swallow reflex symmetrical. CHEST: Shows normal on inspection. Breath sounds clear to auscultation bilaterally. HEART: Shows S1, S2 clear. No murmurs auscultated. ABDOMEN: Soft, nontender, nondistended. No palpable organomegaly is noted. BACK: Shows spine grossly in the midline. Normal appearing thoracic kyphosis, some minor flattening of lumbar lordotic curvature. Lumbar paraspinous muscle shows symmetrical with inspection, with palpation shows some moderate tenderness diffusely, but only in the low lumbar distribution bilaterally. The patient has good rotational motion of lumbar spine, both laterally as well as extension and flexion without significant increase in pain. EXTREMITIES: The patient's lower extremities show deep tendon reflexes 1+/4 in the patellar and tendo-calcaneus tendons. Motor exam is approximately 4 on a scale of 5, but equal and symmetrical bilaterally. Peripheral pulses are 1+ posterior tibia. No peripheral edema is noted bilaterally. Options were discussed with the patient. The patient's old chart was reviewed as his current medication regimen updated. Current review of systems updated today as well and we will proceed with a first in this series of lumbar epidural steroid injection today with fluoroscopic guidance. Risks were again discussed including, but not limited to bleeding, infection, possibility of epidural hematoma, subsequent neurological compromise, dural puncture, headaches, spinal cord and/or nerve damage, side effects of steroid medications and poor results regarding pain control. The patient understands and wished to proceed. The patient will return to clinic in approximately 2 weeks for followup. He was counseled on return appointment, activity level and side effects to be aware of. DIAGNOSES: Lumbar radiculopathy with lumbar spinal stenosis, lumbar degenerative disk disease, and lumbar post-laminectomy syndrome. PROCEDURE: Lumbar epidural steroid injection, translaminar approach at the L5-S1 level using C-arm fluoroscopic guidance under sterile prep and drape using local anesthetic. MEDICATION INJECTED: The patient received a total of 120 mg Depo-Medrol plus 10 mL of preservative-free normal saline and 2 mL of contrast. CONDITION AT DISCHARGE: Stable. The patient tolerated the procedure well, had no complications. JACK AYALA MD DR: ABHIJIT/philip JOB#: [id number] / [id number]
== END ==
LOC: PNCL 09:26
PROVIDERS: ATTEND Anesthesiology
DX: M51.16 Intervertebral disc disorders with radiculopathy, lumbar region (principal); M48.061 Spinal stenosis, lumbar region without neurogenic claudication; M96.1 Postlaminectomy syndrome, not elsewhere classified
CPT/HCPCS: 62323; J1030; Q9965

== ENCOUNTER → 2019-10-05 | Outpatient (CLI) | payer MEDICARE ==
[2019-09-06 15:00] VITALS: BP 111/73
[~2019-10-05] MED LIST changes: -IOHEXOL 180 MG/ML 10 ML VIAL. ONE; -methylPREDNISolone ACETATE 40 MG/ML VIAL. ONE
--- NOTE | 2019-10-05 11:57 | PAIN ---
DATE OF SERVICE: 10/05/2019 PROGRESS NOTE FOR PAIN CLINIC DIAGNOSES: Lumbar radiculopathy with lumbar spinal stenosis, lumbar degenerative disk disease and lumbar post-laminectomy syndrome. HISTORY OF PRESENT ILLNESS: The patient is a 59-year-old male who returns for followup status post lumbar epidural steroid injection x 1. The patient reports he did quite well about 50% improvement for the first 2 weeks. The patient reports it would increase with activities such as walking, doing household activities with greater ease and comfort, felt quite a bit better. The patient still reports he has been awakened from sleep with the pain only occasionally, not every night. The patient reports the pain is an 8 on a scale of 10 over the past week; however, it is worst in average and at its least at an 8 today in the low back itself and radiating to the posterior gluteus, posterior thighs. The patient reports no new motor or sensory deficits, no new bowel or bladder incontinence or other complaints. PHYSICAL EXAMINATION: VITAL SIGNS: The patient's blood pressure 126/69, pulse 71, respirations 16, temperature 97.5 degrees Fahrenheit, weight is 331 pounds. GENERAL: The patient is awake, alert, oriented, appropriate, very pleasant demeanor. HEENT: Head shows normocephalic, atraumatic. Extraocular movements are intact and symmetrical. Oral cavity: Mucous membranes moist and pink. NECK: Shows anterior throat supple. CHEST: Shows normal on inspection. Breath sounds are distant, but clear bilaterally. HEART: Shows S1, S2 clear. No murmurs auscultated. ABDOMEN: Obese but soft, nontender, nondistended. The patient's lower extremities show deep tendon reflexes at 1+ patellar and tendo calcaneus tendons. Motor exam is strong with approximately 4 on a scale of 5, but equal and symmetrical dorsiflexion, extension, quadriceps and hamstring flexion. Back shows some moderate tenderness with palpation in the lumbar distribution with well-healed surgical scarring. PLAN: Options were discussed with the patient. The patient's old chart was reviewed as his current medication regimen updated. Current review of systems updated today as well. 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 We will have him hold the Eliquis and return to the clinic in approximately 3 days for lumbar epidural steroid injection #2 at that time. The patient understands and agrees and will follow up as scheduled. JACK AYALA MD DR: ABHIJIT/philip JOB#: [id number] / [id number]
== END | disposition home or self-care (01) ==
LOC: PNCL 09:59
PROVIDERS: ATTEND Anesthesiology
DX: M51.16 Intervertebral disc disorders with radiculopathy, lumbar region (principal); M48.061 Spinal stenosis, lumbar region without neurogenic claudication; M96.1 Postlaminectomy syndrome, not elsewhere classified
CPT/HCPCS: G0463

== ENCOUNTER → 2019-10-12 | Outpatient (CLI) | payer MEDICARE ==
[~2019-10-12] MED LIST changes: +IOHEXOL 180 MG/ML 10 ML VIAL. ONE; +methylPREDNISolone ACETATE 40 MG/ML VIAL. ONE; +methylPREDNISolone ACETATE 80 MG/ML VIAL. ONE
--- NOTE | 2019-10-12 10:56 | PAIN ---
DATE OF SERVICE: 10/12/2019 PROGRESS NOTE FOR PAIN CLINIC DIAGNOSES: Lumbar radiculopathy with lumbar degenerative disk disease and lumbar spinal stenosis and post-lumbar laminectomy syndrome. HISTORY OF PRESENT ILLNESS: The patient is a 59-year-old male who returns for followup status post lumbar epidural steroid injection x 1. The patient reports he did about 50% better. He had forgotten to hold his Eliquis on his last visit. He has held that now for 3 days and would like to proceed with a second injection. The patient reports still pain in the low back bilaterally into the lower extremities, posterior gluteus and posterior thighs. The patient reports it is an 8 on a scale of 10 at all times, average, worst and least is at 8 today. The patient reports no new motor or sensory deficits, better with sitting or lying down where he has almost no pain, does not awaken him from sleep at night. The patient reports no new motor or sensory deficits, describes the pain as constant, aching in the back and into the legs, shooting, sharp pain at times. PHYSICAL EXAMINATION: VITAL SIGNS: The patient's blood pressure is 132/61, pulse 87, respirations 18, temperature is 98.3 degrees Fahrenheit, height is 6 feet, weight is 333 pounds. GENERAL: The patient is awake, alert, oriented, appropriate, very pleasant demeanor. HEENT: Head shows normocephalic, atraumatic. Extraocular movements are intact and symmetrical. Oral cavity shows mucous membranes moist and pink. Dentition is intact. NECK: Shows anterior throat supple without palpable lymphadenopathy noted. Swallow reflex is symmetrical. CHEST: Shows normal on inspection. Breath sounds are coarse, but distant bilaterally, but clear. ABDOMEN: Soft, nontender, nondistended. HEART: Shows S1, S2 clear. BACK: Shows spine grossly in the midline, flattening of lumbar lordotic curvature. Well-healed surgical scar. Lumbar paraspinous muscle shows symmetrical on inspection, on palpation shows some moderate tenderness, but only diffusely without significant radiation. The patient's back shows good rotational motion both laterally as well as extension and flexion without significant difficulty. EXTREMITIES: The patient's lower extremities show deep tendon reflexes at 1+ in the patellar and tendo calcaneus tendons, equal. Motor exam is approximately 4 on a scale of 5, but symmetrical with dorsiflexion, extension, quadriceps and hamstring flexion, right and left. Peripheral pulses are 1+. No peripheral edema is noted. Options were discussed with the patient. The patient's old chart was reviewed as his current medication regimen updated. Current review of systems updated today as well. We will proceed with a second in the series of lumbar epidural steroid injection today with fluoroscopic guidance. Risks were again discussed including, but not limited to bleeding, infection, possibility of epidural hematoma, subsequent neurological compromise, dural puncture, headaches, spinal cord and/or nerve damage, side effects of steroid medication and poor results regarding pain control. The patient understands and wished to proceed. The patient will return to clinic in approximately 2 weeks for followup. He was counseled on return appointment, activity level and side effects to be aware of. DIAGNOSES: Lumbar radiculopathy with lumbar degenerative disk disease and lumbar spinal stenosis and post-lumbar laminectomy syndrome. PROCEDURE: Lumbar epidural steroid injection, translaminar approach L5-S1 level using C-arm fluoroscopic guidance under sterile prep and drape using local anesthetic. MEDICATION INJECTED: A total of 120 mg Depo-Medrol plus 10 mL of preservative-free normal saline and 2 mL of contrast. CONDITION AT DISCHARGE: Stable. The patient tolerated procedure well, had no complications. JACK AYALA MD DR: ABHIJIT/philip JOB#: [id number] / [id number]
== END ==
LOC: PNCL 07:24
PROVIDERS: ATTEND Anesthesiology
DX: M51.16 Intervertebral disc disorders with radiculopathy, lumbar region (principal); M48.061 Spinal stenosis, lumbar region without neurogenic claudication; M96.1 Postlaminectomy syndrome, not elsewhere classified
CPT/HCPCS: 62323; J1030; J1040; Q9965

== ENCOUNTER 2019-12-15 19:28 | Emergency (ER) | payer MEDICARE ==
[~2019-12-15] VITALS: Ht 182.9 cm; Wt 143.0 kg
[~2019-12-15 19:28] MED LIST changes: -DIGO125T PO; +DIGO125T3 PO; -DIGO250T PO; +DIGO250T3 PO; -IOHEXOL 180 MG/ML 10 ML VIAL. ONE; -OMEP20CA10 PO; +OMEP20CA16 PO; -methylPREDNISolone ACETATE 40 MG/ML VIAL. ONE; -methylPREDNISolone ACETATE 80 MG/ML VIAL. ONE
[2019-12-15 20:48] LABS: BASO % 0 % (0-3); EOS # 0.5 x10^3/uL (0.0-0.7); EOS % 8 % (0-3); HEMATOCRIT 39.6 % (39.0-53.0); LYMPH % 16 % (24-48); MEAN CORPUSCULAR HEMOGLOBIN 31 pg (25-35); MEAN CORPUSCULAR HGB CONC 33 g/dL (31-37); MEAN CORPUSCULAR VOLUME 95 fL (79-100); MONO # 0.9 x10^3/uL (0.0-1.1); MONO % 14 % (0-9); NEUT # 4.2 x10^3/uL (1.8-7.7); NEUT % 63 % (31-73); PLATELET COUNT 270 x10^3/uL (140-400); RED BLOOD COUNT 4.18 x10^6/uL (4.30-5.70); RED CELL DISTRIBUTION WIDTH 13.5 % (11.5-14.5); WHITE BLOOD COUNT 6.6 x10^3/uL (4.0-11.0)
[2019-12-15] MEDS: fentaNYL PF VIAL 100 MCG/2 ML VIAL IVP ONE (20:48)
[2019-12-15 20:57] LABS: CALCIUM 8.8 mg/dL (8.5-10.1); POTASSIUM 3.7 mmol/L (3.5-5.1)
[2019-12-15 21:04] LABS: ALBUMIN 3.9 g/dL (3.4-5.0); ALBUMIN/GLOBULIN RATIO 1.2 (1.0-1.7); TOTAL BILIRUBIN 0.4 mg/dL (0.2-1.0); TOTAL PROTEIN 7.2 g/dL (6.4-8.2)
--- NOTE | 2019-12-15 21:29 | RAD ---
Exam: CT head, cervical, thoracic and lumbar spine INDICATION: Fall TECHNIQUE: Sequential axial images through the head , cervical, thoracic and lumbar spine were obtained without the administration of IV contrast. Comparisons: None FINDINGS: Head: No focal parenchymal lesion or hemorrhage is identified. There is no midline shift or sulcal effacement. No acute vascular territory infarction is identified. Guerra-white distinction is preserved. The ventricular system is within normal limits without compression hydrocephalus. The basal cisterns are well maintained. The visualized portions of the paranasal sinuses and mastoid air cells are well-pneumatized. No acute fractures. Cervical spine: Straightening of cervical spine. Vertebral body heights are well-maintained. Fracture to the cervical spine is not identified. Multilevel spondylotic change in cervical spine with degenerative disc disease greatest at C4-C5. Visualized paraspinal soft tissues are unremarkable. Thoracic spine: Compression deformity involving the superior endplate of T12 which is similar when compared to the prior study. There is straightening of the thoracic spine. Fracture to the cervical spine is not identified. No significant spondylotic change in the thoracic spine. Visualized paraspinal soft tissues are unremarkable. Lumbar spine: Vertebral body heights and alignment are well-maintained. Fracture through the lumbar spine is not identified. Multilevel spondylotic change in the lumbar spine with diffuse degenerative disc disease and mild bilateral facet arthropathy. There is mild bilateral neural foraminal stenosis at L4-L5. Nodular thickening in the right adrenal gland, incompletely characterized on this study. IMPRESSION: 1. No acute intracranial abnormality. 2. Negative CT C-spine for acute traumatic injury. 3. Negative CT T spine for acute traumatic injury. Demonstration of compression deformity of the T12 superior endplate which is unchanged compared to study on 09/03/[address] L-spine for acute traumatic injury. 5. Nodular thickening of the right adrenal gland which is incompletely characterized on this study. Adrenal protocol CT or MRI is recommended in the nonemergent setting. Exposure: One or more of the following in the visualized dose reduction techniques were utilized for this examination: 1. Automated exposure control 2. Adjustment of the MA and/or KV according to patient size Use of iterative of reconstructive technique Electronically signed by: Calderon Vogt MD (12/15/2019 9:26 PM) [facility]
[2019-12-15 23:20] VITALS: BP 121/68
[2019-12-15] MEDS ORDERED: CYCL5TAB PO (23:21)
[2019-12-15] MEDS ORDERED: HYDR-3164 PO (23:21)
--- NOTE | 2019-12-15 23:21 | PHYS DOC ---
Past Medical History Past Medical History: Asthma, CHF, COPD, Hypertension Additional Past Medical Histor: emphysema, lower ext edema,CPAP at night, oxygen at night Past Surgical History: Cancer Surgery Additional Past Surgical Histo: R elbow (bursitis), hernia, colectomy, mouth Cancer- laser surgery Alcohol Use: None Drug Use: None Adult General Chief Complaint Chief Complaint: ALCOHOL INTOXICATION HPI HPI 59-year-old male presents to the emergency department after a fall at home. Patient has a history of chronic back pain. Patient as well has a history of chronic respiratory failure, BiPAP at night, blood thinning medications including Eliquis. Patient primary complains of low back pain after fall tonight. He denies any loss of consciousness. He denies any numbness or tingling to his lower extremities. Patient knows of chronic T12 compression fracture. Family is at bedside. Nothing makes his pain worse, nothing makes his pain better. He is in pain at rest. Denies any chest pain, nausea, vomiting, headache, visual change. Review of Systems Review of Systems Constitutional: Denies fever or chills [] Respiratory: Denies cough or shortness of breath [] Cardiovascular: No additional information not addressed in HPI [] GI: Denies abdominal pain, nausea, vomiting, bloody stools or diarrhea [] : Denies dysuria or hematuria [] Musculoskeletal: neck, low back pain Integument: Denies rash or skin lesions [] Neurologic: Denies headache, focal weakness or sensory changes [] All other systems were reviewed and found to be within normal limits, except as documented in this note. Current Medications Current Medications Current Medications Medications (Trade) Dose Ordered Sig/Sheryl Start Time Stop Time Status Last Admin Dose Admin Fentanyl Citrate (Fentanyl 2ml Vial) 50 mcg 1X ONCE 12/15/19 20:45 12/15/19 20:46 DC 12/15/19 20:48 50 MCG Allergies Allergies Allergies Coded Allergies Type Severity Reaction Last Updated Verified No Known Drug Allergies 02/23/19 No Physical Exam Physical Exam Constitutional: Well developed, well nourished, mod distress, non-toxic appearance. [] HENT: Normocephalic, atraumatic, bilateral external ears normal, oropharynx moist, no oral exudates, nose normal. [] Eyes: PERRLA, EOMI, conjunctiva normal, no discharge. [] Neck: Normal range of motion, mild tenderness appreciated with movement, supple, no stridor. [] Cardiovascular:Heart rate regular rhythm, no murmur [] Lungs & Thorax: Bilateral breath sounds clear to auscultation [] Abdomen: Bowel sounds normal, soft, no tenderness, no masses, no pulsatile masses. [] Skin: Warm, dry, no erythema, no rash. [] Back: TTP to thoracic pinpoint, low back pain paraspinal tenderness Extremities: No tenderness, no edema. [] Neurologic: Alert and oriented X 3, no focal deficits noted. [] Psychologic: Affect normal, judgement normal, mood normal. [] Current Patient Data Vital Signs Vital Signs Date Time Temp Pulse Resp B/P (MAP) Pulse Ox O2 Delivery O2 Flow Rate FiO2 12/15/19 23:20 84 22 121/68 (85) 92 Nasal Cannula 5.0 12/15/19 19:30 98.0 98.0 Lab Values Laboratory Tests Test 12/15/19 20:00 White Blood Count 6.6 x10^3/uL (4.0-11.0) Red Blood Count 4.18 x10^6/uL (4.30-5.70) L Hemoglobin 13.0 g/dL (13.0-17.5) Hematocrit 39.6 % (39.0-53.0) Mean Corpuscular Volume 95 fL (79-100) Mean Corpuscular Hemoglobin 31 pg (25-35) Mean Corpuscular Hemoglobin Concent 33 g/dL (31-37) Red Cell Distribution Width 13.5 % (11.5-14.5) Platelet Count 270 x10^3/uL (140-400) Neutrophils (%) (Auto) 63 % (31-73) Lymphocytes (%) (Auto) 16 % (24-48) L Monocytes (%) (Auto) 14 % (0-9) H Eosinophils (%) (Auto) 8 % (0-3) H Basophils (%) (Auto) 0 % (0-3) Neutrophils # (Auto) 4.2 x10^3/uL (1.8-7.7) Lymphocytes # (Auto) 1.0 x10^3/uL (1.0-4.8) Monocytes # (Auto) 0.9 x10^3/uL (0.0-1.1) Eosinophils # (Auto) 0.5 x10^3/uL (0.0-0.7) Basophils # (Auto) 0.0 x10^3/uL (0.0-0.2) Sodium Level 138 mmol/L (136-145) Potassium Level 3.7 mmol/L (3.5-5.1) Chloride Level 97 mmol/L (98-107) L Carbon Dioxide Level 30 mmol/L (21-32) Anion Gap 11 (6-14) Blood Urea Nitrogen 15 mg/dL (8-26) Creatinine 1.0 mg/dL (0.7-1.3) Estimated GFR (Cockcroft-Gault) 76.0 BUN/Creatinine Ratio 15 (6-20) Glucose Level 95 mg/dL (70-99) Calcium Level 8.8 mg/dL (8.5-10.1) Total Bilirubin 0.4 mg/dL (0.2-1.0) Aspartate Amino Transferase (AST) 14 U/L (15-37) L Alanine Aminotransferase (ALT) 16 U/L (16-63) Alkaline Phosphatase 86 U/L (46-116) Total Protein 7.2 g/dL (6.4-8.2) Albumin 3.9 g/dL (3.4-5.0) Albumin/Globulin Ratio 1.2 (1.0-1.7) Laboratory Tests 12/15/19 20:00 Laboratory Tests 12/15/19 20:00 EKG EKG [] Radiology/Procedures Radiology/Procedures [facility] [address] [place], [place] [id number] IMAGING REPORT Signed PATIENT: TITO MEHTA ACCOUNT: [id number] : 1960 LOCATION: ER AGE: 59 SEX: M EXAM STATUS: REG ER ORD. PHYSICIAN: VICKIE CROWELL MD REASON: fall, + LOC, + eliquis PROCEDURE: CT HEAD AND CERVICAL SPINE WO Exam: CT head, cervical, thoracic and lumbar spine INDICATION: Fall TECHNIQUE: Sequential axial images through the head , cervical, thoracic and lumbar spine were obtained without the administration of IV contrast. Comparisons: None FINDINGS: Head: No focal parenchymal lesion or hemorrhage is identified. There is no midline shift or sulcal effacement. No acute vascular territory infarction is identified. Guerra-white distinction is preserved. The ventricular system is within normal limits without compression hydrocephalus. The basal cisterns are well maintained. The visualized portions of the paranasal sinuses and mastoid air cells are well-pneumatized. No acute fractures. Cervical spine: Straightening of cervical spine. Vertebral body heights are well-maintained. Fracture to the cervical spine is not identified. Multilevel spondylotic change in cervical spine with degenerative disc disease greatest at C4-C5. Visualized paraspinal soft tissues are unremarkable. Thoracic spine: Compression deformity involving the superior endplate of T12 which is similar when compared to the prior study. There is straightening of the thoracic spine. Fracture to the cervical spine is not identified. No significant spondylotic change in the thoracic spine. Visualized paraspinal soft tissues are unremarkable. Lumbar spine: Vertebral body heights and alignment are well-maintained. Fracture through the lumbar spine is not identified. Multilevel spondylotic change in the lumbar spine with diffuse degenerative disc disease and mild bilateral facet arthropathy. There is mild bilateral neural foraminal stenosis at L4-L5. Nodular thickening in the right adrenal gland, incompletely characterized on this study. IMPRESSION: 1. No acute intracranial abnormality. 2. Negative CT C-spine for acute traumatic injury. 3. Negative CT T spine for acute traumatic injury. Demonstration of compression deformity of the T12 superior endplate which is unchanged compared to study on 09/03/[address] L-spine for acute traumatic injury. 5. Nodular thickening of the right adrenal gland which is incompletely characterized on this study. Adrenal protocol CT or MRI is recommended in the nonemergent setting. Exposure: One or more of the following in the visualized dose reduction techniques were utilized for this examination: 1. Automated exposure control 2. Adjustment of the MA and/or KV according to patient size Use of iterative of reconstructive technique Electronically signed by: Calderon Nick MD (12/15/2019 9:26 PM) [facility] DICTATED and SIGNED BY: CALDERON NICK MD DATE: 12/15/192125 [] Course & Med Decision Making Course & Med Decision Making Pertinent Labs and Imaging studies reviewed. (See chart for details) []59-year-old male presents to the emergency department after a fall at home. Patient has a history of chronic back pain. Patient as well has a history of chronic respiratory failure, BiPAP at night, blood thinning medications including Eliquis. Patient primary complains of low back pain after fall tonight. He denies any loss of consciousness. He denies any numbness or tingling to his lower extremities. Patient knows of chronic T12 compression fracture. Family is at bedside. Nothing makes his pain worse, nothing makes his pain better. He is in pain at rest. Denies any chest pain, nausea, vomiting, headache, visual change. Laboratory values and imaging reviewed White blood cell count 6.6, creatinine 1.0, hemoglobin 13.0 CT of head and cervical spine unremarkable, he does have evidence of chronic 12 compression fracture Pain medications provided with some improvement Given negative acute findings, we'll plan for discharge as patient is comfortable with going home. Return precautions provided upon discharge Darling/Flexeril Rx provided Discussed with patient at family at bedside Dragon Disclaimer Dragon Disclaimer This electronic medical record was generated, in whole or in part, using a voice recognition dictation system. Departure Departure Impression: Primary Impression: Fall Additional Impression: Acute exacerbation of chronic low back pain Disposition: 01 HOME, SELF-CARE Condition: STABLE Referrals: Roseann JAY MD (PCP) Patient Instructions: Back Pain, Adult, [id number], Fall Prevention and Home Safety, [id number] Additional Instructions: Recommend follow up with PCP 3 - 5 days Return to the ER with worsening symptoms, intractable pain, fever, altered mental status Tylenol/Motrin as needed for pain Pain medications rx provided upon discharge Scripts Cyclobenzaprine Hcl (CYCLOBENZAPRINE HCL) 5 Mg Tablet 1 TAB PO TID PRN for MUSCLE SPASMS, #30 TAB Prov: VICKIE CROWELL MD 12/15/19 Hydrocodone/Apap 5-325 (NORCO 5-325 TABLET) 1 Each Tablet 1-2 TAB PO Q4-6HRS for pain, #14 TAB Prov: VICKIE CROWELL MD 12/15/19 Problem Qualifiers Primary Impression: Fall Encounter type: initial encounter Qualified Codes: W19.XXXA - Unspecified fall, initial encounter VICKIE CROWELL MD Dec 15, 2019 23:21
--- NOTE | 2019-12-16 07:03 | EKG ---
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
== END 2019-12-15 23:35 | disposition home or self-care (01) ==
LOC: ER 19:28
DX: G89.29 Other chronic pain (principal); G89.11 Acute pain due to trauma; M54.5 Low back pain; J45.909 Unspecified asthma, uncomplicated; I50.9 Heart failure, unspecified; J44.9 Chronic obstructive pulmonary disease, unspecified; I10 Essential (primary) hypertension; Z98.890 Other specified postprocedural states; W18.30XA Fall on same level, unspecified, initial encounter; Y93.89 Activity, other specified; Y92.009 Unspecified place in unspecified non-institutional (private) residence as the place of occurrence of the external cause; Y99.8 Other external cause status
CPT/HCPCS: 36415; 70450; 72125; 72128; 72131; 80053; 85025; 93005; 96374; 99285; J3010